=== PATIENT | female | born 1990 | race Caucasian/White ===

== ENCOUNTER 2018-06-29 15:37 | Emergency (ER) | payer BC, MEDICAID, OTHER ==
[~2018-06-29] VITALS: Ht 148.6 cm; Wt 49.4 kg
[~2018-06-29 15:37] MED LIST: AC325T PO; AMOX500C2 PO; CEFD300C3 PO; CEFP250T2 PO; CEPH500C PO; CIPR500T78 PO; CLOT21CR6 VG; CPR500T PO; CYCL10TA9 PO; DESM0.2T PO; DOXY-13 PO; FAMO20TA5 PO; HYDR-1231 PO; HYDR-34 PO; HYDR-3720 PO; HYDR1TAB PO; HYOS0.1216 PO; LORTAB PO; METR500T PO; NAPR-243 PO; NITR-65 PO; NITR100C44 PO; OMEP20CA12 PO; ONDA-42 SL; ONDA4TAB11 PO; ONDA4TAB8 PO; ONDA8TAB13 PO; ONDAN4ODT PO; OXYC-12 PO; OXYC-465 PO; PANT20TA2 PO; PHEN100T26 PO; PHEN200T27 PO; PRD20T PO; PROM25SU10 PR; SULF1TAB35 PO; TRAM50TA2 PO; TRM50T PO
--- OUTSIDE RECORDS SUMMARY | 2018-06-29 15:46 | XMS REPORT | Continuity Of Care Document ---
Author Author [facility] Address [address] [place] [address] Phone Care Team Providers Care Wig Maker Name Role Phone UNASSIGNED, ED PHYSICIAN Unavailable Unavailable MARIANN GALLEGOS DO AT Results Lab Results Visit/Account #[id number] (June 01, 2016 9:17pm - June 01, 2016 11:13pm) Test Result Date/Time 22643-1: COMPLETE BLOOD COUNT WITH DIFF WHITE BLOOD COUNT(4.0-11.0 10E3/UL) 10.4 10E3/UL June 01, 2016 8:21pm RED BLOOD COUNT(4.00-5.20 10E6/UL) 4.73 10E6/UL June 01, 2016 8:21pm HEMOGLOBIN(12.0-16.0 G/DL) 13.9 G/DL June 01, 2016 8:21pm HEMATOCRIT(36.0-46.0 %) 43.0 % June 01, 2016 8:21pm 61621-0: MEAN CORPUSCULAR VOLUME(82.0-100.0 FL) 90.9 FL June 01, 2016 8:21pm 06851-9: MEAN CORPUSCULAR HEMOGLOBIN(26.0-34.0 PG) 29.4 PG June 01, 2016 8:21pm MEAN CORPUSCULAR HGB CONC(31.5-36.5 G/DL) 32.3 G/DL June 01, 2016 8:21pm RED CELL DISTRIBUTION WIDTH(11.5-14.5 %) 12.2 % June 01, 2016 8:21pm 777-3: PLATELET COUNT(150-450 10E3/UL) 334 10E3/UL June 01, 2016 8:21pm MEAN PLATELET VOLUME(8.2-12.4 FL) 9.9 FL June 01, 2016 8:21pm 770-8: NEUTROPHILS % (AUTO)(40-70 %) 64 % June 01, 2016 8:21pm LYMPHOCYTES % (AUTO)(15-45 %) 22 % June 01, 2016 8:21pm 5905-5: MONOCYTES % (AUTO)(2-10 %) 12 % June 01, 2016 8:21pm 713-8: EOSINOPHILS % (AUTO)(0-6 %) 1 % June 01, 2016 8:21pm 706-2: BASOPHILS % (AUTO)(0-1 %) 1 % June 01, 2016 8:21pm 61594-7: IMMATURE GRANS % (AUTO)(0-0 %) 0 % June 01, 2016 8:21pm NUCLEATED RBCS (AUTO)(0-0 %) 0 % June 01, 2016 8:21pm 751-8: NEUTROPHILS # (AUTO)(2.5-7.5 10E3/UL) 6.7 10E3/UL June 01, 2016 8:21pm 82351-9: LYMPHOCYTES # (AUTO)(1.0-4.0 10E3/UL) 2.3 10E3/UL June 01, 2016 8:21pm 742-7: MONOCYTES # (AUTO)(0.2-0.8 10E3/UL) 1.3 10E3/UL June 01, 2016 8:21pm 711-2: EOSINOPHILS # (AUTO)(0.0-0.4 10E3/UL) 0.1 10E3/UL June 01, 2016 8:21pm 704-7: BASOPHILS # (AUTO)(0.0-0.2 10E3/UL) 0.1 10E3/UL June 01, 2016 8:21pm IMMATURE GRANS # (AUTO)(0.0-0.0 10E3/UL) 0.0 10E3/UL June 01, 2016 8:21pm DIFF TYPE AUTOMATED June 01, 2016 8:21pm UA WITH SCREEN FOR CULTURE 5778-6: COLOR,URINE YELLOW June 01, 2016 8:19pm 09627-9: CLARITY,URINE SLIGHTLY CLOUDY June 01, 2016 8:19pm GLUCOSE, URINE(NEGATIVE MG/DL) NEGATIVE MG/DL June 01, 2016 8:19pm URINE BILIRUBIN(NEGATIVE) NEGATIVE June 01, 2016 8:19pm KETONES,URINE(NEGATIVE MG/DL) NEGATIVE MG/DL June 01, 2016 8:19pm 2965-2: URINE SPECIFIC GRAVITY(1.001-1.035) 1.016 June 01, 2016 8:19pm 83809-2: URINE BLOOD(NEGATIVE) MODERATE June 01, 2016 8:19pm 2756-5: URINE PH(5.0-9.0) 8.0 June 01, 2016 8:19pm URINE PROTEIN(Less than 20 MG/DL) TRACE MG/DL June 01, 2016 8:19pm 93602-4: URINE UROBILINOGEN(0.2-1.0 MG/DL) 0.2-1.0 MG/DL June 01, 2016 8:19pm URINE NITRITE(NEGATIVE) POSITIVE June 01, 2016 8:19pm 5799-2: LEUKOCYTE ESTERASE ,URINE(NEGATIVE) LARGE June 01, 2016 8:19pm URINE RBCS(0-3 /HPF) 0-3 /HPF June 01, 2016 8:19pm URINE WBCS(0-3 /HPF) Greater than 100 /HPF June 01, 2016 8:19pm URINE EPITHELIAL CELLS(0-3 /HPF) 4-7 /HPF June 01, 2016 8:19pm URINE HYALINE CASTS(0-3 /LPF) 4-7 /LPF June 01, 2016 8:19pm URINE BACTERIA(NEGATIVE /HPF) 4+ /HPF June 01, 2016 8:19pm 630-4: URINE CULTURE TO FOLLOW June 01, 2016 8:19pm URINE MICROSCOPIC REQUIRED YES June 01, 2016 8:19pm URINE CRYSTALS(NONE SEEN /HPF) 1+ AMORPHOUS /HPF June 01, 2016 8:19pm URINE OTHER CASTS(NONE SEEN /LPF) NONE SEEN /LPF June 01, 2016 8:19pm URINE COMMENTS NONE June 01, 2016 8:19pm 10064-8: COMPLETE METABOLIC PROFILE GLUCOSE(70-110 MG/DL) 90 MG/DL June 01, 2016 8:21pm BLOOD UREA NITROGEN(6-20 MG/DL) 12 MG/DL June 01, 2016 8:21pm CREATININE(0.50-1.20 MG/DL) 0.90 MG/DL June 01, 2016 8:21pm 58547-1: EST GLOMERULAR FILTRATION RATE(Greater than or equal to 60) Greater than or equal to 60 Result Comments: If the patient is of -Guy[place] descent/extraction multiply the eGFR value by 1.212 to obtain the actual eGFR. >=60 mg/dL Normal 30-59 mg/dL Moderate Kidney Disease 15-29 mg/dL Severe Kidney Disease <15 mg/dL Kidney Failure June 01, 2016 8:21pm BUN CREATININE RATIO(10.0-20.0 RATIO) 13.0 RATIO June 01, 2016 8:21pm SODIUM(135-145 MMOL/L) 133 MMOL/L June 01, 2016 8:21pm POTASSIUM(3.6-5.0 MMOL/L) 3.9 MMOL/L June 01, 2016 8:21pm CHLORIDE(101-111 MMOL/L) 103 MMOL/L June 01, 2016 8:21pm CO2(21-31 MMOL/L) 26 MMOL/L June 01, 2016 8:21pm ANION GAP(8-18) 8 June 01, 2016 8:21pm OSMO CALCULATED(270.0-290.0) 265.7 June 01, 2016 8:21pm CALCIUM(8.5-10.5 MG/DL) 8.8 MG/DL June 01, 2016 8:21pm BILIRUBIN,TOTAL(0.1-1.2 MG/DL) 1.0 MG/DL June 01, 2016 8:21pm ALKALINE PHOSPHATASE(42-121 IU/L) 61 IU/L June 01, 2016 8:21pm ASPARTATE AMINO TRANSFERASE(10-42 IU/L) 23 IU/L June 01, 2016 8:21pm ALANINE AMINOTRANSFERASE(10-60 IU/L) 13 IU/L June 01, 2016 8:21pm TOTAL PROTEIN(6.4-8.2 G/DL) 8.0 G/DL June 01, 2016 8:21pm ALBUMIN(3.5-5.5 G/DL) 4.3 G/DL June 01, 2016 8:21pm GLOBULIN(2.4-3.6) 3.7 June 01, 2016 8:21pm ALBUMIN/GLOBULIN RATIO(0.9-1.8 RATIO) 1.2 RATIO June 01, 2016 8:21pm 3040-3: LIPASE 3040-3: LIPASE(22-51 U/L) 23 U/L June 01, 2016 8:21pm SERUM HCG, QUALITATIVE 2110-5: SERUM HCG, QUALITATIVE(NEGATIVE) NEGATIVE June 01, 2016 8:21pm Allergies and Adverse Reactions Allergies and Adverse Reactions Patient Unit Number: [id number] Agent Type Reaction Severity Status TRAMADOL Drug Allergy Unknown Unknown Active Problem List Problem List Visit/Account #[id number] (June 01, 2016 9:17pm - June 01, 2016 11:13pm) Acute Problems: Code/Condition Comments Documented Start Date Documented Resolved Date Code (s) Urinary tract infection ICD10: N39.0 Urinary tract infection ICD9: 599.0 Urinary tract infection SNOMED: 88074932 Urinary tract infection Plan of Care Plan Of Care Visit/Account #[id number] (June 01, 2016 9:17pm - June 01, 2016 11:13pm) Patient Instructions Home to rest. Drink plenty of water. Take all at antibiotics as prescribed. Vital Signs Vital Signs Visit/Account #[id number] (June 01, 2016 9:17pm - June 01, 2016 11:13pm) Sign First Result Last Result Code(s) Temperature in Fahrenheit Temperature (Fahrenheit): 98.2 [degF] On June 01, 2016 9:11pm Temperature (Fahrenheit): 98.4 [degF] On June 01, 2016 11:00pm 8310-5 Body Temperature Weight in Kilograms Weight (Kilograms): 55.7 kg On June 01, 2016 9:11pm 3141-9 Weight Measured 04611-9 Body weight measured in kilograms Functional Status Functional and Cognitive Status No Functional Status Data Medications Inpatient/Ordered Medications - Medications administered during hospital visit Visit/Account #[id number] (June 01, 2016 9:17pm - June 01, 2016 11:13pm) Medication Route Sig/Schedule Precondition/Indication Comments/Instructions Codes IV Medication Carriers: NORMAL SALINE(SODIUM CHLORIDE) 1000 ML INJECTION Dose: 1000 ML INTRAVEN .Q1H (Rate: 1000 MLS/HR Duration: 1 HR) Carriers: 1000 ML Sodium Chloride 9 MG/ML Injection (RxNorm): 4766986 NORMAL SALINE (SODIUM CHLORIDE) NDC: 68144871772 SUBLIMAZE INJ(FentaNYL CITRATE) 100 MCG/2 ML INJECTION Dose: 1 ML INTRAVEN NOW Label Comments: GIVE BY SLOW PUSH OVER 2-5 MIN MAY INCREASE FALL RISK SUBLIMAZE INJ (FentaNYL CITRATE) NDC: 53985448704 IV Medication Carriers: ANCEF 1 GM/50 ML(CEFAZOLIN/DEXTROSE) 1 GM/50 ML INJECTION Dose: 50 ML INTRAVEN NOW (Rate: 100 MLS/HR Duration: 30 MIN) Label Comments: REFRIGERATE ANCEF=KEFZOL Expires 24 HRS after dispensed Carriers: Cefazolin 1000 MG Injection (RxNorm): 6813458 ANCEF 1 GM/50 ML (CEFAZOLIN/DEXTROSE) NDC: 23161420732 TORADOL INJ(KETOROLAC TROMETHAMINE) 15 MG/ML INJECTION Dose: 0.6667 ML INTRAVEN ONE TIME ORDER Label Comments: DO NOT EXCEED 5 DAYS OF THERAPY 1 ML Ketorolac Tromethamine 15 MG/ML Injection (RxNorm): 984388 TORADOL INJ (KETOROLAC TROMETHAMINE) NDC: 40416510340 PYRIDIUM(PHENAZOPYRIDINE HCL) 200 MG TAB Dose: 200 MG ORAL NOW Phenazopyridine hydrochloride 200 MG Oral Tablet (RxNorm): 2530886 PYRIDIUM (PHENAZOPYRIDINE HCL) NDC: 09945412112 NORCO 5-325(HYDROcodone BIT/ACETAMINOPHEN) 1 TAB TAB Dose: 1 TAB ORAL NOW Label Comments: <<may be substituted for 5/500>> REC MAX DAILY DOSE ACETAMINOPHEN: 4000 MG/24 HR MAY INCREASE FALL RISK Acetaminophen 325 MG / Hydrocodone Bitartrate 5 MG Oral Tablet (RxNorm): 920844 NORCO 5-325 (HYDROcodone BIT/ACETAMINOPHEN) NDC: 94268699229 Discharge Medications - Medications that patient should continue to take. Review with physician Visit/Account #[id number] (June 01, 2016 9:17pm - June 01, 2016 11:13pm) Medication Route Sig/Schedule Precondition/Indication Comments/Instructions Codes KEFLEX(CEPHALEXIN MONOHYDRATE) 500 MG CAPSULE Dose: 500 MG ORAL EVERY 6 HOURS Cephalexin 500 MG Oral Capsule (RxNorm): 481872 KEFLEX (CEPHALEXIN MONOHYDRATE) NDC: 79421902560 NORCO 5-325 TABLET(HYDROcodone BIT/ACETAMINOPHEN) 1 EACH TABLET Dose: 1 TAB ORAL EVERY 6 HOURS PAIN Acetaminophen 325 MG / Hydrocodone Bitartrate 5 MG Oral Tablet (RxNorm): 072106 NORCO 5-325 TABLET (HYDROcodone BIT/ACETAMINOPHEN) NDC: 20076919795 PYRIDIUM(PHENAZOPYRIDINE HCL) 200 MG TABLET Dose: 200 MG ORAL 3 TIMES A DAY Phenazopyridine hydrochloride 200 MG Oral Tablet (RxNorm): 3020903 PYRIDIUM (PHENAZOPYRIDINE HCL) NDC: 90934270099 History Of Encounters Encounters Visit/Account #[id number] (June 01, 2016 9:17pm - June 01, 2016 11:13pm) Account Status Physican Of Record Reason For Visit Visit Diagnosis Start Date/Time Stop Date/Time PAMELA GALLEGOS, ABD PAIN Not Available Jun 01, 2016 9:17pm Jun 01, 2016 11:13pm History of Procedures Procedure List No procedures recorded. Discharge Instructions Discharge Instructions Visit/Account #[id number] (June 01, 2016 9:17pm - June 01, 2016 11:13pm) DISCHARGE INSTRUCTIONS Physician Documentation Social History Social History No Social History Data. Immunizations Immunizations Patient Unit Number: [id number] Immunizations No immunizations recorded.
--- OUTSIDE RECORDS SUMMARY | 2018-06-29 15:49 | XMS REPORT | Continuity of Care Document ---
Author Organization Unknown Address Unknown Allergies Active Description Code Type Severity Reaction Onset Reported/Identified Relationship to Patient Clinical Status Yes No Known Drug Allergies [id number] Drug Allergy Unknown N/A 01/05/2014 Yes TRAMADOL [id number] Drug Allergy N/A N/A 06/01/2016 Medications There is no data. Problems Date Dx Coded Attending Type Code Diagnosis Diagnosed By 09/25/2009 Ot 644.03 10/11/2009 Ot 643.23 10/11/2009 Ot 644.03 11/29/2009 Ot 644.13 12/04/2009 Ot 285.9 12/04/2009 Ot 648.21 12/04/2009 Ot V27.0 01/30/2010 Ot 620.2 01/30/2010 Ot 789.09 03/22/2010 Ot 462 04/21/2012 Ot 599.0 04/21/2012 Ot 616.0 04/21/2012 Ot 788.1 04/30/2012 Ot 041.49 04/30/2012 Ot 041.89 04/30/2012 Ot 079.98 04/30/2012 Ot 564.00 04/30/2012 Ot 590.10 04/30/2012 Ot 614.9 04/30/2012 Ot 616.10 04/30/2012 Ot V04.81 07/04/2012 Ot 552.1 09/19/2012 MARILIA VALE MD Ot 599.0 09/19/2012 MARILIA VALE MD Ot 789.00 03/29/2013 KEVIN MCCRAY Ot 599.70 03/29/2013 KEVIN MCCRAY Ot 723.4 03/29/2013 KEVIN MCCRAY Ot 780.79 03/29/2013 KEVIN MCCRAY Ot 789.00 05/03/2013 KEVIN MCCRAY Ot 574.20 05/03/2013 KEVIN MCCRAY Ot 787.01 05/04/2013 KRISTINE ARREDONDO KEVIN L Ot 574.20 05/04/2013 KRISTINE ARREDONDO KEVIN L Ot 789.01 05/12/2013 ERI MCMANUS, ANGELA Mayo Ot 338.18 05/12/2013 ERI , ANGELA Mayo Ot 599.0 05/12/2013 ERI , ANGELA Mayo Ot 787.02 05/12/2013 ERI , ANGELA Mayo Ot 789.05 05/15/2013 STEPHANIE METCALF MD Ot 564.00 05/15/2013 STEPHANIE METCALF MD Ot 789.01 10/17/2013 KEVIN MCCRAY Ot 276.51 10/17/2013 KEVIN MCCRAY Ot 620.2 10/17/2013 KEVIN MCCRAY Ot 787.01 10/17/2013 KEVIN MCCRAY Ot 789.09 01/07/2014 ANDERS GARRISON, ESTEPHANIA Taylor Ot 568.0 01/07/2014 ANDERS GARRISON, ESTEPHANIA Taylor Ot 617.9 01/07/2014 ESTEPHNAIA MCNAMARA MD Ot 620.2 01/07/2014 ANDERS GARRISON, ESTEPHANIA Taylor Ot 789.03 01/11/2014 LALA GARRISON, DIONICIO Bonilla Ot 599.0 01/11/2014 DIONICIO REEVES MD Ot 788.1 01/14/2014 ANDERS GARRISON, ESTEPHANIA Taylor Ot 079.99 01/14/2014 ANDERS GARRISON, ESTEPHANIA Taylor Ot 590.80 01/14/2014 ESTEPHANIA MCNAMARA MD Ot 646.63 01/14/2014 ANDERS GARRISON, ESTEPHANIA Taylor Ot 647.63 01/17/2014 ERI , ANGELA Mayo Ot 599.0 01/17/2014 ERI , ANGELA Mayo Ot 787.01 01/17/2014 ERI , ANGELA K Ot 787.03 05/23/2014 Ot 599.0 05/23/2014 Ot 787.01 06/19/2014 Ot 553.1 06/19/2014 Ot V72.63 06/19/2014 Ot V74.8 06/19/2014 TEA GARRISON, STEPHANIE Ot 575.11 06/19/2014 TEA GARRISON, STEPHANIE Ot 574.20 06/19/2014 TEA GARRISON, STEPHANIE Ot V72.84 06/19/2014 ANDERS GARRISON, ESTEPHANIA Taylor Ot 625.9 06/19/2014 ANDERS GARRISON, ESTEPHANIA Taylor Ot V72.63 06/19/2014 ANDERS GARRISON, ESTEPHANIA Taylor Ot V74.8 06/19/2014 KEVIN MCCRAY Ot 648.93 06/19/2014 KRISTINE ARREDONDO, KEVIN Desai Ot 787.02 06/19/2014 KEVIN MCCRAY Ot 787.91 06/19/2014 KEVIN MCCRAY Ot 789.00 06/24/2014 Ot 553.1 06/24/2014 Ot V72.63 06/24/2014 Ot V74.8 06/24/2014 TEA GARRISON, STEPHANIE Ot 575.11 06/24/2014 ETA GARRISON, STEPHANIE Ot 574.20 06/24/2014 TEA GARRISON, STEPHANIE Ot V72.84 06/24/2014 ANDERS GARRISON, ESTEPHANIA Taylor Ot 625.9 06/24/2014 ANDERS GARRISON, ESTEPHANIA Taylor Ot V72.63 06/24/2014 ANDERS GARRISON, ESTEPHANIA Taylor Ot V74.8 06/27/2014 COREY PENDLETON BOAT PILOT Ot 640.03 06/27/2014 COREY PENDLETON BOAT PILOT Ot 644.03 06/28/2014 COREY PENDLETON BOAT PILOT Ot 623.8 06/28/2014 COREY PENDLETON BOAT PILOT Ot 634.90 07/15/2014 ANDERS GARRISON, ESTEPHANIA Taylor Ot 615.9 07/15/2014 ANDERS GARRISON, ESTEPHANIA Taylor Ot 620.1 07/15/2014 ESTEPHANIA MCNAMARA MD Ot V74.8 08/28/2014 KEVIN MCCRAY Ot 599.0 09/04/2014 ESTEPHANIA MCNAMARA MD Ot 634.11 10/15/2014 Ot 553.1 10/15/2014 Ot V72.63 10/15/2014 Ot V74.8 10/15/2014 TEA GARRISON, STEPHANIE Ot 575.11 10/15/2014 TEA GARRISON, STEPHANIE Ot 574.20 10/15/2014 TEA GARRISON, STEPHANIE Ot V72.84 10/15/2014 ANDERS GARRISON, ESTEPHANIA Taylor Ot 625.9 10/15/2014 ANDERS GARRISON, ESTEPHANIA G Ot V72.63 10/15/2014 ANDERS GARRISON, ESTEPHANIA Taylor Ot V74.8 10/15/2014 ANDERS GARRISON, ESTEPHANIA G Ot 634.11 10/15/2014 DEBBIE RASHEED DO Ot 599.0 10/15/2014 DEBBIE RASHEED DO Ot 789.09 10/15/2014 Ot 553.1 10/15/2014 Ot V72.63 10/15/2014 Ot V74.8 10/15/2014 TEA GARRISON, STEPHANIE Ot 575.11 10/15/2014 TEA GARRISON, STEPHANIE Ot 574.20 10/15/2014 TEA GARRISON, STEPHANIE Ot V72.84 10/15/2014 ANDERS GARRISON, ESTEPHANIA G Ot 625.9 10/15/2014 ANDERS GARRISON, ESTEPHANIA G Ot V72.63 10/15/2014 ANDERS GARRISON, ETSEPHANIA G Ot V74.8 10/15/2014 ANDERS GARRISON, ESTEPHANIA Taylor Ot 634.11 10/17/2014 Ot 553.1 10/17/2014 Ot V72.63 10/17/2014 Ot V74.8 10/17/2014 ETA GARRISON, STEPHANIE Ot 575.11 10/17/2014 TEA GARRISON, STEPHANIE Ot 574.20 10/17/2014 TEA GARRISON, STEPHANIE Ot V72.84 10/17/2014 ANDERS GARRISON, ESTEPHANIA Taylor Ot 625.9 10/17/2014 ANDERS GARRISON, ESTEPHANIA Taylor Ot V72.63 10/17/2014 ANDERS GARRISON, ESTEPHANIA Taylor Ot V74.8 10/17/2014 ANDERS GARRISON, ESTEPHANIA G Ot 634.11 10/18/2014 KEVIN MCCRAY Ot 595.9 10/18/2014 KEVIN MCCRAY Ot 599.70 11/04/2014 LUISITO OMALLEY MD Ot 789.04 09/17/2015 Ot 599.0 URIN TRACT INFECTION NOS 09/17/2015 Ot 616.0 CERVICITIS 09/17/2015 Ot 788.1 DYSURIA 06/01/2016 MARIANN GALLEGOS DO N39.0 URINARY TRACT INFECTION, SITE NOT SPECIFIED 06/01/2016 MARIANN GALLEGOS DO R10.11 RIGHT UPPER QUADRANT PAIN Procedures There is no data. Results There is no data. Encounters ACCT No. Visit Date/Time Discharge Status Pt. Type Provider Facility Loc./Unit Complaint [id number] 11/03/2014 23:13:00 11/04/2014 01:53:00 DIS Emergency LUISITO OMALLEY MD Via [facility] ER [id number] 10/17/2014 21:44:00 10/18/2014 01:00:00 DIS Emergency KEVIN MCCRAY [facility] ER [id number] 10/15/2014 21:31:00 10/15/2014 22:29:00 DIS Emergency DEBBIE RASHEED DO [facility] ER [id number] 08/28/2014 22:17:00 08/28/2014 23:34:00 DIS Emergency KEVIN MCCRAY [facility] ER [id number] 07/15/2014 11:37:00 07/15/2014 17:30:00 DIS Outpatient ESTEPHANIA MCNAMARA MD [facility] [id number] 07/01/2014 15:28:00 07/01/2014 23:59:59 CLS Outpatient ESTEPHANIA MCNAMARA MD [facility] [id number] 06/28/2014 22:13:00 06/28/2014 23:39:00 DIS Emergency COREY PENDLETON APRN [facility] ER [id number] 06/27/2014 20:18:00 06/27/2014 22:51:00 DIS Emergency COREY PENDLETON APRN [facility] ER [id number] 06/19/2014 19:20:00 06/19/2014 22:11:00 DIS Emergency KEVIN MCCRAY [facility] ER [id number] 01/17/2014 03:24:00 01/17/2014 06:08:00 DIS Emergency ANGELA HWANG DO [facility] ER [id number] 01/14/2014 10:35:00 01/14/2014 15:53:00 DIS Inpatient ESTEPHANIA MCNAMARA MD [facility] [id number] 01/11/2014 19:04:00 01/11/2014 21:10:00 DIS Emergency DIONICIO REEVES MD [facility] ER [id number] 01/07/2014 09:30:00 01/07/2014 16:30:00 DIS Outpatient ESTEPHANIA MCNAMARA MD [facility] [id number] 01/05/2014 09:47:00 01/05/2014 23:59:59 CLS Outpatient ESTEPHANIA MCNAMARA MD [facility] PREOP [id number] 10/17/2013 13:10:00 10/17/2013 16:05:00 DIS Emergency KEVIN MCCRAY [facility] ER [id number] 05/14/2013 00:00:00 05/15/2013 14:30:00 DIS Inpatient STEPHANIE METCALF MD [facility] SURGICAL [id number] 05/12/2013 10:13:00 05/12/2013 13:06:00 DIS Emergency ANGELA HWANG DO [facility] ER [id number] 05/08/2013 11:17:00 05/08/2013 23:59:59 CLS Outpatient STEPHANIE METCALF MD [facility] [id number] 05/07/2013 14:58:00 05/07/2013 23:59:59 CLS Outpatient STEPHANIE METCALF MD [facility] PREOP [id number] 05/04/2013 18:35:00 05/04/2013 22:06:00 DIS Emergency KEVIN MCCRAY [facility] ER [id number] 05/03/2013 10:25:00 05/03/2013 13:50:00 DIS Emergency KEVIN MCCRAY [facility] ER [id number] 03/29/2013 15:06:00 03/29/2013 22:55:00 DIS Emergency KEVIN MCCRAY [facility] ER [id number] 09/19/2012 11:40:00 09/19/2012 13:29:00 DIS Emergency AKANKSHA GARRISON, MARILIA Mayo [facility] ER [id number] 06/29/2018 15:38:00 ACT Emergency LALA GARRISON, DIONICIO Bonilla [facility] ER FS POSS ALLERGIC REACTION TO MEDS [id number] 05/23/2014 06:12:00 Document Registration [id number] 07/04/2012 07:47:00 Document Registration [id number] 07/01/2012 10:25:00 Document Registration [id number] 04/21/2012 22:38:00 Document Registration [id number] 04/21/2012 12:25:00 Document Registration [id number] 03/22/2010 02:54:00 Document Registration [id number] 01/30/2010 01:43:00 Document Registration [id number] 12/02/2009 01:17:00 Document Registration [id number] 11/29/2009 00:35:00 Document Registration [id number] 10/10/2009 19:30:00 Document Registration [id number] 09/25/2009 06:00:00 Document Registration [id number] 06/01/2016 21:17:00 06/01/2016 23:13:00 DIS ER MARIANN GALLEGOS DO [facility] ED
[2018-06-29] MEDS ORDERED: CEPH-507 PO (16:05)
--- NOTE | 2018-06-29 16:05 | ED General ---
General Chief Complaint: Allergic Reaction Stated Complaint: POSS ALLERGIC REACTION TO MEDS Source of Information: Patient Exam Limitations: No Limitations History of Present Illness Date Seen by Provider: Jun 29, 2018 Time Seen by Provider: 16:00 Initial Comments Patient complains of throat swelling and pain possibly due to an allergic reaction. She took amoxicillin for 10 days for left upper tooth infection. She was still having problems so she started taking clindamycin. She's been on clindamycin for 3 days. She feels a clindamycin stuck in her throat throat is swelling. The [facility] doctor ordered Benadryl for symptoms and referred her here. She denies rash or shortness of air. Allergies and Home Medications Allergies Coded Allergies: No Known Drug Allergies (Unverified , 01/05/14) Home Medications Cefprozil 250 Mg Tablet, 1 TAB PO BID Prescribed by: DEBBIE RASHEED on 10/15/142206 Cephalexin 500 Mg Capsule, 500 MG PO TID Prescribed by: DIONICIO REEVES on 06/29/18 1605 Cyclobenzaprine HCl 10 Mg Tablet, 10 MG PO Q8H PRN for SPASMS Prescribed by: LUISITO OMALLEY on 11/04/14 0145 Hydrocodone Bit/Acetaminophen 1 Each Tablet, 1 EACH PO Q6H Prescribed by: LUISITO OMALLEY on 11/04/14 0145 Hyoscyamine Sulfate 0.125 Mg Tab, 1 EACH PO QID PRN for PAIN Prescribed by: KEVIN CARMONA on 10/18/14 0052 Patient Home Medication List Home Medication List Reviewed: Yes Review of Systems Review of Systems Constitutional: no symptoms reported EENTM: dental problems, throat pain, throat swelling Respiratory: no symptoms reported Gastrointestinal: nausea Musculoskeletal: no symptoms reported Skin: no symptoms reported Psychiatric/Neurological: No Symptoms Reported All Other Systems Reviewed Negative Unless Noted: Yes Past Sovfugz-Nweive-Mhbqnv Hx Patient Social History Alcohol Use: Denies Use Recreational Drug Use: No Smoking Status: Never a Smoker Contact w/Someone Who Travel: No (N) Recent Hopitalizations: No Physical Abuse: No Sexual Abuse: No Mistreated: No Fear: No Immunizations Up To Date Tetanus Booster (TDap): More than 5yrs PED Vaccines UTD: No Date of Influenza Vaccine: Dec 17, 2012 Seasonal Allergies Seasonal Allergies: No Past Medical History Surgeries: Yes (Umbilical herniorrhaphy 07/04/12,D&C, ENDOMETRIOSIS SCRAPING, d& c) Adenoidectomy, Appendectomy, Gallbladder, Tonsillectomy Respiratory: No Cardiac: No Neurological: No Reproductive Disorders: Yes (CPP) Female Reproductive Disorders: Endometriosis, Ovarian Cyst Sexually Transmitted Disease: No HIV/AIDS: No Kidney Infection, UTI-Chronic Gastrointestinal: No Abdominal Hernia, Gall Bladder Disease Musculoskeletal: No Chronic Back Pain Endocrine: No Cancer: No Psychosocial: Yes Depression Integumentary: No Blood Disorders: No Adverse Reaction/Blood Tranf: No Family Medical History No Pertinent Family Hx Physical Exam Vital Signs Vital Signs - First Documented 06/29/18 15:51 Temp 98.9 Pulse 89 Resp 20 B/P (MAP) 107/75 (86) Pulse Ox 100 O2 Delivery Room Air Capillary Refill : Height, Weight, BMI Height: 4'11" Weight: 105lbs. 0.0oz. [id number]; BMI Method:Stated General Appearance: No Apparent Distress, WD/WN Eyes: Bilateral Eye PERRL, Bilateral Eye EOMI HEENT: PERRL/EOMI, Pharynx Normal, Moist Mucous Membranes, Other (carious left upper second molar with inflamed gingiva) Neck: Supple Respiratory: Lungs Clear, Normal Breath Sounds Cardiovascular: Regular Rate, Rhythm, No Edema Neurologic/Psychiatric: Alert, No Motor/Sensory Deficits Skin: Normal Color, Warm/Dry Progress/Results/Core Measures Suspected Sepsis SIRS Temperature: Pulse: Respiratory Rate: Blood Pressure / Mean: Results/Orders My Orders Orders - DIONICIO REEVES MD Antacid Suspension (Mylanta Suspension (06/29/18 16:15) Lidocaine 2% Viscous 15 Ml (Xylocaine Vi (06/29/18 16:15) Medications Given in ED Current Medications Medications Dose Ordered Sig/Damion Route Start Time Stop Time Status Last Admin Dose Admin Al Hydrox/Mg Hydrox/Simethicone 30 ml ONCE ONCE PO 06/29/18 16:15 06/29/18 16:16 DC 06/29/18 16:13 30 ML Lidocaine HCl 15 ml ONCE ONCE PO 06/29/18 16:15 06/29/18 16:16 DC 06/29/18 16:13 15 ML Vital Signs/I&O 06/29/18 06/29/18 15:51 16:19 Temp 98.9 98.9 Pulse 89 98 Resp 20 20 B/P (MAP) 107/75 (86) 106/71 (83) Pulse Ox 100 100 O2 Delivery Room Air Room Air Capillary Refill : Departure Impression Primary Impression: Allergic reaction Additional Impression: Dental caries Disposition: 21 DIS/X[address]/[employer] Condition: Stable Departure-Patient Inst. Decision time for Depature: 16:03 Referrals: ANGELA MENDOZA MD (PCP/Family) Primary Care Physician Patient Instructions: Drug Allergy Add. Discharge Instructions: Stop taking clindamycin. Start taking Keflex. Benadryl as needed for throat swelling. Clear liquid diet for next 24 hours. See dentist as soon as possible. All discharge instructions reviewed with patient and/or family. Voiced understanding. Scripts Cephalexin (Keflex) 500 Mg Capsule 500 MG PO TID for 7 Days, #21 CAP Prov: DIONICIO REEVES MD 06/29/18 DIONICIO REEVES MD Jun 29, 2018 16:05
[2018-06-29] MEDS ORDERED: ANTACID SUSP 30 ML UDC (MYLANTA) PO ONE (16:15)
[2018-06-29] MEDS ORDERED: LIDOCAINE 2% VISCOUS 15 ML UDC PO ONE (16:15)
[2018-06-29 16:19] VITALS: BP 106/71
== END 2018-06-29 16:19 ==
LOC: EDUNIT# 15:37 → ER FS 15:38
DX: K04.7 Periapical abscess without sinus (principal); T78.40XA Allergy, unspecified, initial encounter; F32.9 Major depressive disorder, single episode, unspecified; Z98.890 Other specified postprocedural states; Z90.89 Acquired absence of other organs; Z90.49 Acquired absence of other specified parts of digestive tract; Z87.448 Personal history of other diseases of urinary system; Z87.440 Personal history of urinary (tract) infections; Z87.19 Personal history of other diseases of the digestive system
CPT/HCPCS: 99283

== ENCOUNTER 2018-10-21 21:29 | Emergency (ER) | payer OTHER ==
[~2018-10-21] VITALS: Ht 147.3 cm; Wt 56.7 kg
[~2018-10-21 21:29] MED LIST changes: +CEPH-507 PO
--- NOTE | 2018-10-21 22:38 | ED Respiratory ---
General Stated Complaint: LT EAR PAIN, ABD AND CHEST PAIN FROM COUGH Source: patient, family, RN notes reviewed History of Present Illness Date Seen by Provider: Oct 21, 2018 Time Seen by Provider: 22:30 Timing/Duration: week Allergies and Home Medications Allergies Coded Allergies: No Known Drug Allergies (Unverified , 01/05/14) Home Medications Cefprozil 250 Mg Tablet, 1 TAB PO BID Prescribed by: DEBBIE RASHEED on 10/15/14 2207 Cephalexin 500 Mg Capsule, 500 MG PO TID Prescribed by: DIONICIO REEVES on 06/29/18 1605 Cyclobenzaprine HCl 10 Mg Tablet, 10 MG PO Q8H PRN for SPASMS Prescribed by: LUISITO OMALLEY on 11/04/14 0145 Hydrocodone Bit/Acetaminophen 1 Each Tablet, 1 EACH PO Q6H Prescribed by: LUISITO OMALLEY on 11/04/14 0145 Hyoscyamine Sulfate 0.125 Mg Tab, 1 EACH PO QID PRN for PAIN Prescribed by: KEVIN CARMONA on 10/18/14 0052 Past Gpomvbk-Ocqfbh-Vyusir Hx Patient Social History Recent Foreign Travel: No Contact w/Someone Who Travel: No Recent Hopitalizations: No Immunizations Up To Date Tetanus Booster (TDap): More than 5yrs PED Vaccines UTD: No Date of Influenza Vaccine: Dec 17, 2012 Seasonal Allergies Seasonal Allergies: No Past Medical History Surgeries: Yes (Umbilical herniorrhaphy 07/04/12,D&C, ENDOMETRIOSIS SCRAPING, d&c) Adenoidectomy, Appendectomy, Gallbladder, Tonsillectomy Respiratory: No Cardiac: No Neurological: No Reproductive Disorders: Yes (CPP) Female Reproductive Disorders: Endometriosis, Ovarian Cyst Sexually Transmitted Disease: No HIV/AIDS: No Kidney Infection, UTI-Chronic Gastrointestinal: No Abdominal Hernia, Gall Bladder Disease Musculoskeletal: No Chronic Back Pain Endocrine: No Cancer: No Psychosocial: Yes Depression Integumentary: No Blood Disorders: No Adverse Reaction/Blood Tranf: No Family Medical History No Pertinent Family Hx Physical Exam Vital Signs - First Documented Capillary Refill : Height: 4'10.50" Weight: 109lbs. 0oz. [id number]; BMI Method:Stated Progress/Results/Core Measures Suspected Sepsis SIRS Temperature: Pulse: Respiratory Rate: Laboratory Tests 10/21/18 22:55: White Blood Count 9.1 Blood Pressure / Mean: Laboratory Tests 10/21/18 22:55: Creatinine 0.76, Platelet Count 315, Total Bilirubin 0.2 Results/Orders Lab Results Laboratory Tests Test 10/21/18 22:55 Range/Units White Blood Count 9.1 4.3-11.0 10^3/uL Red Blood Count 4.15 L 4.35-5.85 10^6/uL Hemoglobin 12.2 11.5-16.0 G/DL Hematocrit 37 35-52 % Mean Corpuscular Volume 90 80-99 FL Mean Corpuscular Hemoglobin 29 25-34 PG Mean Corpuscular Hemoglobin Concent 33 32-36 G/DL Red Cell Distribution Width 12.3 10.0-14.5 % Platelet Count 315 130-400 10^3/uL Mean Platelet Volume 10.6 H 7.4-10.4 FL Neutrophils (%) (Auto) 59 42-75 % Lymphocytes (%) (Auto) 29 12-44 % Monocytes (%) (Auto) 9 0-12 % Eosinophils (%) (Auto) 2 0-10 % Basophils (%) (Auto) 1 0-10 % Neutrophils # (Auto) 5.4 1.8-7.8 X 10^3 Lymphocytes # (Auto) 2.6 1.0-4.0 X 10^3 Monocytes # (Auto) 0.8 0.0-1.0 X 10^3 Eosinophils # (Auto) 0.2 0.0-0.3 10^3/uL Basophils # (Auto) 0.1 0.0-0.1 10^3/uL Sodium Level 142 135-145 MMOL/L Potassium Level 3.7 3.6-5.0 MMOL/L Chloride Level 105 98-107 MMOL/L Carbon Dioxide Level 21 21-32 MMOL/L Anion Gap 16 H 5-14 MMOL/L Blood Urea Nitrogen 6 L 7-18 MG/DL Creatinine 0.76 0.60-1.30 MG/DL Estimat Glomerular Filtration Rate > 60 BUN/Creatinine Ratio 8 Glucose Level 93 70-105 MG/DL Calcium Level 8.7 8.5-10.1 MG/DL Corrected Calcium 8.6 8.5-10.1 MG/DL Total Bilirubin 0.2 0.1-1.0 MG/DL Aspartate Amino Transf (AST/SGOT) 12 5-34 U/L Alanine Aminotransferase (ALT/SGPT) 8 0-55 U/L Alkaline Phosphatase 66 40-136 U/L Total Protein 7.1 6.4-8.2 GM/DL Albumin 4.1 3.2-4.5 GM/DL My Orders Orders - DEBBIE RASHEED DO Cbc With Automated Diff (10/21/18 22:36) Comprehensive Metabolic Panel (10/21/18 22:36) Chest Pa/Lat (2 View) (10/21/18 22:36) Azithromycin Tablet (Zithromax Tablet) (10/21/18 23:45) Prednisone Tablet (Deltasone Tablet) (10/21/18 23:45) Hydrocodone/Apap 7.5/325 Tab (Lortab 7. (10/21/18 23:45) Vital Signs/I&O 10/21/18 10/21/18 22:40 22:40 Temp 98.7 Pulse 76 Resp 20 B/P (MAP) 128/82 (97) Pulse Ox 100 O2 Delivery Room Air Room Air Capillary Refill : Departure Impression Primary Impression: Acute bronchitis Additional Impressions: Costochondritis, acute Otitis media Disposition: 01 HOME, SELF-CARE Condition: Stable Departure-Patient Inst. Referrals: ANGELA MENDOZA MD (PCP/Family) Primary Care Physician Patient Instructions: Acute Bronchitis, Adult (DC), Costochondritis (DC), Ear Infections (Otitis Media) Add. Discharge Instructions: RECOMMEND 400 mg OF IBUPROFEN EVERY 6 HOURS FOR PAIN. MAY ALSO TAKE 1000 mg OF TYLENOL EVERY 6 HOURS WELL IF NEEDED. DO NOT EXCEED 4000 mg OF TYLENOL IN A 24 HOUR PERIOD. Scripts Methylprednisolone (Medrol) 4 Mg Tab.ds.pk 4 MG PO UD for 6 Days, #21 PKG PER DOSE PACK INSTRUCTIONS Prov: DEBBIE RASHEED DO 10/21/18 Azithromycin (Azithromycin) 250 Mg Tablet 250 MG PO DAILY, #4 TAB 0 Refills Prov: DEBBIE RASHEED DO 10/21/18 DEBBIE RASHEED DO Oct 21, 2018 22:38
[2018-10-21 23:05] LABS: HEMATOCRIT 37 % (35-52); HEMOGLOBIN 12.2 G/DL (11.5-16.0); LYMPHOCYTES % (AUTO) 29 % (12-44); MEAN CORPUSCULAR HEMOGLOBIN 29 PG (25-34); MEAN CORPUSCULAR HGB CONC 33 G/DL (32-36); MEAN CORPUSCULAR VOLUME 90 FL (80-99); MEAN PLATELET VOLUME 10.6 FL (7.4-10.4); NEUTROPHILS % (AUTO) 59 % (42-75); PLATELET COUNT 315 10^3/uL (130-400); RED CELL DISTRIBUTION WIDTH 12.3 % (10.0-14.5); WHITE BLOOD COUNT 9.1 10^3/uL (4.3-11.0)
[2018-10-21 23:06] LABS: BASOPHILS # (AUTO) 0.1 10^3/uL (0.0-0.1); BASOPHILS % (AUTO) 1 % (0-10); EOSINOPHILS # (AUTO) 0.2 10^3/uL (0.0-0.3); EOSINOPHILS % (AUTO) 2 % (0-10); LYMPHOCYTES # (AUTO) 2.6 X 10^3 (1.0-4.0); MONOCYTES # (AUTO) 0.8 X 10^3 (0.0-1.0); MONOCYTES % (AUTO) 9 % (0-12); NEUTROPHILS # (AUTO) 5.4 X 10^3 (1.8-7.8)
[2018-10-21 23:22] LABS: CARBON DIOXIDE 21 MMOL/L (21-32); CHLORIDE 105 MMOL/L (98-107); POTASSIUM 3.7 MMOL/L (3.6-5.0); SODIUM 142 MMOL/L (135-145)
[2018-10-21 23:23] LABS: ALANINE AMINOTRANSFERASE 8 U/L (0-55); ALBUMIN 4.1 GM/DL (3.2-4.5); ALKALINE PHOSPHATASE 66 U/L (40-136); BILIRUBIN,TOTAL 0.2 MG/DL (0.1-1.0); BUN/CREATININE RATIO 8; CALCIUM 8.7 MG/DL (8.5-10.1); CREATININE SERUM 0.76 MG/DL (0.60-1.30); GFR ESTIMATED > 60; GLUCOSE 93 MG/DL (70-105); TOTAL PROTEIN 7.1 GM/DL (6.4-8.2)
[2018-10-21] MEDS ORDERED: AZIT250T12 PO (23:39)
[2018-10-21] MEDS ORDERED: METH4TAB PO (23:39)
[2018-10-21] MEDS ORDERED: predniSONE 20 MG TAB PO ONE (23:45)
[2018-10-21] MEDS ORDERED: HYDROcodone/APAP 7.5 MG/325 MG (LORTAB, LORCET PLUS) TABLET PO ONE (23:45)
[2018-10-21] MEDS ORDERED: AZITHROMYCIN 250 MG TAB (ZITHROMAX) PO ONE (23:45)
[2018-10-21 23:56] VITALS: BP 111/72
--- NOTE | 2018-10-22 06:30 | Diagnostic Imaging Report ---
INDICATION: Cough and congestion x2 weeks. TECHNIQUE: Two view chest 10:23 PM CORRELATION STUDY: 05/12/2013 FINDINGS: The heart size, mediastinal configuration and pulmonary vasculature are within normal limits. The lungs are clear with no consolidating infiltrate. There is no significant pleural effusion or pneumothorax. Visualized osseous structures are unremarkable. IMPRESSION: 1. No radiographic evidence for acute abnormality of the chest. Dictated by: Dictated on workstation # [id number]
== END 2018-10-21 23:56 | disposition home or self-care (01) ==
LOC: EDUNIT# 21:29 → ER FS 21:30
DX: J20.9 Acute bronchitis, unspecified (principal); H66.92 Otitis media, unspecified, left ear; M94.0 Chondrocostal junction syndrome [Tietze]; F32.9 Major depressive disorder, single episode, unspecified; Z87.19 Personal history of other diseases of the digestive system; Z90.49 Acquired absence of other specified parts of digestive tract; Z90.89 Acquired absence of other organs; Z87.440 Personal history of urinary (tract) infections
CPT/HCPCS: 36415; 71046; 80053; 85025

== ENCOUNTER 2019-01-01 20:39 | Emergency (ER) | payer MEDICAID ==
[~2019-01-01] VITALS: Ht 147 cm; Wt 59.1 kg
[~2019-01-01 20:39] MED LIST changes: +AZIT250T12 PO; +METH4TAB PO
--- NOTE | 2019-01-01 21:41 | ED Integumentary General ---
General Chief Complaint: General Problems/Pain Stated Complaint: INFECTED BELLY BUTTON - POST OP Nursing Triage Note: Pt ambulates to triage with C/O umbilical drainage from surgery, pt had umbilical hernia surgery on 11/25/18. Pt states green/yellow drainage from site since surgery, wound has been open to air and bactriband applied daily. Source: patient Exam Limitations: no limitations History of Present Illness Date Seen by Provider: Jan 01, 2019 Time Seen by Provider: 21:38 Initial Comments Patient had an umbilical hernia repaired here by Dr. Metcalf on 11/25/18. She's had persistent yellowish drainage from the inferior aspect of this wound since then, no fevers or chills, she's had increasing pain in the periumbilical region for the past few days, tenderness with flexing abdomen Timing/Duration: constant Severity: moderate Location: torso Possible Cause: no cause identified Associated Symptoms: denies symptoms Allergies and Home Medications Allergies Coded Allergies: clindamycin (Verified Allergy, Intermediate, oral blisters, SOB, 01/01/19) Patient Home Medication List Home Medication List Reviewed: Yes Review of Systems Review of Systems Constitutional: see HPI EENTM: see HPI Respiratory: no symptoms reported Cardiovascular: no symptoms reported Genitourinary: no symptoms reported Musculoskeletal: no symptoms reported Skin: see HPI Psychiatric/Neurological: No Symptoms Reported Past Lwgwizr-Elyxpo-Mxwheq Hx Patient Social History Alcohol Use: Denies Use Recreational Drug Use: No Smoking Status: Current Everyday Smoker Type Used: Cigarettes 2nd Hand Smoke Exposure: Yes Recent Foreign Travel: No Contact w/Someone Who Travel: No Recent Infectious Disease Expo: No Recent Hopitalizations: No Physical Abuse: No Sexual Abuse: No Mistreated: No Fear: No Immunizations Up To Date Tetanus Booster (TDap): More than 5yrs PED Vaccines UTD: Yes Date of Influenza Vaccine: Dec 17, 2012 Seasonal Allergies Seasonal Allergies: No Past Medical History Surgeries: Yes (Umbilical herniorrhaphy 07/04/12,D&C, ENDOMETRIOSIS SCRAPING, d&c,) Adenoidectomy, Appendectomy, Gallbladder, Tonsillectomy Respiratory: No Cardiac: No Neurological: No Reproductive Disorders: Yes (CPP) Female Reproductive Disorders: Endometriosis, Ovarian Cyst Sexually Transmitted Disease: No HIV/AIDS: No Genitourinary: Yes Kidney Infection, UTI-Chronic Gastrointestinal: No (umbilical hernia removed 11/25/18) Abdominal Hernia, Gall Bladder Disease Musculoskeletal: No Chronic Back Pain Endocrine: No HEENT: No Cancer: No Psychosocial: Yes Depression Integumentary: No Blood Disorders: No Adverse Reaction/Blood Tranf: No Family Medical History No Pertinent Family Hx Physical Exam Vital Signs Vital Signs - First Documented 01/01/19 21:01 Temp 37.1 Pulse 72 Resp 19 B/P (MAP) 116/83 (94) Pulse Ox 100 O2 Delivery Room Air Capillary Refill : Less Than 3 Seconds General Appearance: WD/WN, no apparent distress HEENT: PERRL/EOMI, normal ENT inspection Respiratory: normal breath sounds, no respiratory distress, no accessory muscle use Neurologic/Psychiatric: alert, normal mood/affect, oriented x 3 Skin: normal color, warm/dry Skin Problem Character: other (inferior aspect of abdomen about 1/2 inch of incision is dehisced) Progress/Results/Core Measures Results/Orders My Orders Orders - COREY PENDLETON PHYSICAL SCIENCE AIDE Ct Abdomen/Pelvis Wo (01/01/19 21:36) Urine Bedside (01/01/19 21:36) Wound Culture (01/01/19 21:36) Vital Signs/I&O 01/01/19 01/01/19 21:01 22:39 Temp 37.1 37.1 Pulse 72 72 Resp 19 19 B/P (MAP) 116/83 (94) 122/85 (94) Pulse Ox 100 100 O2 Delivery Room Air Room Air Blood Pressure Mean: 94 Departure Communication (Admissions) CT report from stat read shows uncomplicated appearance of the ventral umbilical hernia mesh repair and noncontrast CT no fluid collection or recurrent hernia is identified. #2 right lower lobe patchy opacity suspicious for pneumonic infiltrate in the appropriate clinical context. Impression Primary Impression: Postoperative wound dehiscence Qualified Codes: T81.31XA - Disruption of external operation (surgical) wound, not elsewhere classified, initial encounter Disposition: HOME, SELF-CARE Condition: Stable Departure-Patient Inst. Decision time for Depature: 22:34 Referrals: NO,LOCAL PHYSICIAN (PCP/Family) Primary Care Physician Patient Instructions: Wound Dehiscence Add. Discharge Instructions: 1. Call Dr. Metcalf's office tomorrow to make an appointment to be seen for follow- up 2. Continue with the dressing changes 3. Culture results should be back in about 48 hours. This will tell what kind of bacteria if any ongoing Bactrim in the right antibiotic for it Copy Copies To 1: STEPHANIE METCALF MD, PETER J APRN Jan 01, 2019 21:41
[2019-01-01 22:39] VITALS: BP 122/85
[2019-01-01] MEDS ORDERED: RX-HYDROCODONE/APAP 5/325 MG #4 TAB PK PO PRN (22:45)
--- NOTE | 2019-01-02 07:37 | Diagnostic Imaging Report ---
EXAM: CT Abdomen and Pelvis Without Intravenous Contrast. CLINICAL HISTORY: Umbilical hernia surgery on 11/25/2018. Greenish-yellow drainage at surgical site. EXAM DATE/TIME: 01/01/2019 at 10 pm. COMPARISON: 10/17/2014 FINDINGS: Artifacts: None Lower thorax: There are several patchy alveolar infiltrates in the right lower lung consistent with pneumonitis. ABDOMEN: Liver: Normal Gallbladder and bile ducts: Gallbladder appears to be absent. Bile ducts are not dilated. Pancreas: Normal Spleen: Normal Adrenals: Nonenlarged Kidneys and ureters: No hydronephrosis or calculi. Renal outlines are smooth PELVIS: Bladder: Not distended Reproductive: The uterus and ovaries are not enlarged Appendix: Appears to be absent Bowel: Normal bowel gas pattern throughout. ABDOMEN & PELVIS: Stomach and bowel: Not distended. No bowel wall thickening Peritoneum: No free air or free fluid. There is noted repair of umbilical hernia with mesh present. No complications are demonstrated. Lymph nodes: No lymphadenopathy. Vasculature: Normal Bones: Normal IMPRESSION: 1. Uncomplicated umbilical hernia ventral repair with mesh. 2. Patchy infiltrate right lower lung consistent with pneumonitis. These findings are concordant with the preliminary report. Dictated by: Dictated on workstation # [id number]
== END 2019-01-01 22:45 | disposition home or self-care (01) ==
LOC: EDUNIT# 20:39 → ER 20:41
DX: T81.31XA Disruption of external operation (surgical) wound, not elsewhere classified, initial encounter (principal); F32.9 Major depressive disorder, single episode, unspecified; F17.210 Nicotine dependence, cigarettes, uncomplicated; Z87.440 Personal history of urinary (tract) infections; Z88.1 Allergy status to other antibiotic agents; Z90.49 Acquired absence of other specified parts of digestive tract; Z90.89 Acquired absence of other organs
CPT/HCPCS: 74176; 84703; 87070; 87077; 87186; 87205

== ENCOUNTER 2019-01-11 10:25 | Emergency (ER) | payer MEDICAID ==
[~2019-01-11] VITALS: Ht 147.3 cm; Wt 57.7 kg
[2019-01-11] MEDS ORDERED: CEPH500C (10:42)
--- NOTE | 2019-01-11 10:46 | NUR ---
DR METCALF AND COREY IN ROOM TO SEE PT.
--- NOTE | 2019-01-11 10:46 | ED Integumentary General ---
General Chief Complaint: Skin/Wound Problems Stated Complaint: POST OP - WOUND INFECTION - BELLY BUTTON Source: patient Exam Limitations: no limitations (EVARISTO PEARSON) History of Present Illness Date Seen by Provider: Jan 11, 2019 Time Seen by Provider: 10:30 Initial Comments Patient presents to the ED today with what she believes is a worsening wound from a hernia repair that she had in November. She came to the ED last week for the same issue and was prescribed Bactrim for the infection. She has not yet finished her course of antibiotics but states that the pain is worse than it was last week and that there is a visible opening at the wound site, which was not there last week. She also complains of a pain in both hips and stated "she's afraid the infection has spread to her hips." Location Injury Occurred: home Timing/Duration: week, getting worse Severity: mild Location: torso Possible Cause: other (wound from recent surgery) Modifying Factors: improves with other (Bactrim and topical abx ointment) Associated Symptoms: rash, other (new wound opening at site) (EVARISTO PEARSON) Allergies and Home Medications Allergies Coded Allergies: clindamycin (Verified Allergy, Intermediate, oral blisters, SOB, 01/01/19) Patient Home Medication List Home Medication List Reviewed: Yes (COREY PENDLETON APRN) Review of Systems Review of Systems Constitutional: no symptoms reported EENTM: no symptoms reported Respiratory: no symptoms reported Cardiovascular: no symptoms reported Gastrointestinal: no symptoms reported Genitourinary: no symptoms reported : No Musculoskeletal: no symptoms reported Skin: see HPI Psychiatric/Neurological: No Symptoms Reported Endocrine: No Symptoms Reported Hematologic/Lymphatic: No Symptoms Reported (EVARISTO PEARSON) Past Bwworgh-Pslfdr-Pderti Hx Patient Social History Alcohol Use: Rarely Uses Recreational Drug Use: No Smoking Status: Current Everyday Smoker Type Used: Cigarettes 2nd Hand Smoke Exposure: Yes Recent Foreign Travel: No Contact w/Someone Who Travel: No Recent Hopitalizations: No (EVARISTO PEARSON) Immunizations Up To Date Tetanus Booster (TDap): More than 5yrs PED Vaccines UTD: Yes Date of Influenza Vaccine: Dec 17, 2012 (EVARISTO PEARSON) Seasonal Allergies Seasonal Allergies: No (EVARISTO PEARSON) Past Medical History Surgeries: Yes (Umbilical herniorrhaphy 07/04/12,D&C, ENDOMETRIOSIS SCRAPING, d&c,) Adenoidectomy, Appendectomy, Gallbladder, Tonsillectomy Respiratory: No Cardiac: No Neurological: No Reproductive Disorders: Yes (CPP) Female Reproductive Disorders: Endometriosis, Ovarian Cyst Sexually Transmitted Disease: No HIV/AIDS: No Genitourinary: Yes Kidney Infection, UTI-Chronic Gastrointestinal: No (umbilical hernia removed 11/25/18) Abdominal Hernia, Gall Bladder Disease Musculoskeletal: No Chronic Back Pain Endocrine: No HEENT: No Cancer: No Psychosocial: Yes Depression Integumentary: No Blood Disorders: No Adverse Reaction/Blood Tranf: No (EVARISTO PEARSON STUDENT) Family Medical History No Pertinent Family Hx (EVARISTO PEARSON STUDENT) Physical Exam Vital Signs Vital Signs - First Documented 01/11/19 10:29 Temp 36.5 Pulse 90 Resp 20 B/P (MAP) 125/96 (106) Pulse Ox 99 O2 Delivery Room Air (COREY PENDLETON APRN) Vital Signs Capillary Refill : (EVARISTO PEARSON STUDENT) General Appearance: no apparent distress HEENT: PERRL/EOMI, pharynx normal Cardiovascular: normal peripheral pulses, regular rate, rhythm, no edema, no gallop, no JVD, no murmur Respiratory: chest non-tender, lungs clear, normal breath sounds, no respiratory distress, no accessory muscle use Gastrointestinal: normal bowel sounds, non tender, soft, no organomegaly, no pulsatile mass Back: normal inspection, no CVA tenderness, no vertebral tenderness Neurologic/Psychiatric: alert, normal mood/affect, oriented x 3 Skin: normal color, warm/dry, other (small wound opening to the right of the umbilicus) Skin Problem Location: other (umbilicus) Skin Problem Character: drainage Lymphatic: no adenopathy (EVARISTO PEARSON STUDENT) Progress/Results/Core Measures Results/Orders Vital Signs/I&O 01/11/19 10:29 Temp 36.5 Pulse 90 Resp 20 B/P (MAP) 125/96 (106) Pulse Ox 99 O2 Delivery Room Air (COREY PENDLETON APRN) Departure Communication (Admissions) Dr. Metcalf happened to be in house, was gracious enough to swing by patient. Agrees this is a suture granuloma, plan for local anesthesia with suture removal in his office. I have seen the patient as well and agree with findings. There is no surrounding cellulitis or drainage able to be expressed from this wound which is only (by a few millimeters at the umbilicus. There are some inflammatory changes just adjacent to this wound only about 1 or 2 mm. (COREY PENDLETON APRN) Impression Primary Impression: Suture granuloma Qualified Codes: T81.89XA - Other complications of procedures, not elsewhere classified, initial encounter Disposition: HOME, SELF-CARE Condition: Stable Departure-Patient Inst. Decision time for Depature: 10:52 (COREY PENDLETON APRN) Referrals: STEPHANIE METCALF MD NO,LOCAL PHYSICIAN (PCP) Primary Care Physician Patient Instructions: Wound Care (DC) Add. Discharge Instructions: 1. See Dr. Metcalf in his office this Sunday at 2 PM All discharge instructions reviewed with patient and/or family. Voiced understanding. EVARISTO PEARSON PA STUDENT Jan 11, 2019 10:46 COREY PENDLETON APRN Jan 11, 2019 10:54
[2019-01-11 10:56] VITALS: BP 125/96
== END 2019-01-11 10:55 | disposition home or self-care (01) ==
LOC: EDUNIT# 10:25 → ER 10:26
DX: T81.89XA Other complications of procedures, not elsewhere classified, initial encounter (principal); F32.9 Major depressive disorder, single episode, unspecified; F17.210 Nicotine dependence, cigarettes, uncomplicated; Z88.1 Allergy status to other antibiotic agents; Z90.89 Acquired absence of other organs; Z90.49 Acquired absence of other specified parts of digestive tract; Z87.440 Personal history of urinary (tract) infections
CPT/HCPCS: 99282

== ENCOUNTER 2019-01-24 09:07 | Emergency (ER) | payer MEDICAID ==
[~2019-01-24] VITALS: Ht 147 cm; Wt 59.0 kg
[~2019-01-24 09:07] MED LIST changes: +CEPH500C
--- NOTE | 2019-01-24 09:36 | ED Integumentary General ---
General Chief Complaint: Skin/Wound Problems Stated Complaint: WOUND INFECTION Source: patient, family Exam Limitations: no limitations History of Present Illness Date Seen by Provider: Jan 24, 2019 Time Seen by Provider: 09:15 Initial Comments 28-year-old female who presents with a tre-umbilical rash. Patient reports that she has been having it since November when she had umbilical mesh placed. Patient reports that she has been on antibiotics in November both oral and topical with no improvement. She was seen at her surgeon's office 2 days ago. Reports that she had to come home headache and she continues to have pain and some nausea. She nausea medication at home but has not taken it. Reports that they called the surgeon's office and sent to the ER. However I called the surgeon's office they report that they were more that it was them. That there is nothing for us to do in the ER and to discharge the patient. They will either see the patient at 11 AM today if she wants sooner practitioner or if she wants to see the surgeon the patient to wait until next Sunday. At this time there is no acute emergency and no workup or further screening is needed Allergies and Home Medications Allergies Coded Allergies: clindamycin (Verified Allergy, Intermediate, oral blisters, SOB, 01/01/19) Patient Home Medication List Home Medication List Reviewed: Yes Review of Systems Review of Systems Constitutional: No chills, No fever; malaise Respiratory: No cough, No short of breath Cardiovascular: No chest pain Gastrointestinal: see HPI, nausea Genitourinary: no symptoms reported Skin: see HPI Past Uxhnxqg-Pohjwa-Kjdyni Hx Past Med/Social Hx: Reviewed Nursing Past Med/Soc Hx Patient Social History Alcohol Use: Denies Use Recreational Drug Use: No Type Used: Cigarettes 2nd Hand Smoke Exposure: Yes Recent Hopitalizations: No Physical Abuse: No Sexual Abuse: No Mistreated: No Fear: No Immunizations Up To Date Tetanus Booster (TDap): More than 5yrs PED Vaccines UTD: Yes Date of Influenza Vaccine: Dec 17, 2012 Seasonal Allergies Seasonal Allergies: No Past Medical History Surgeries: Yes (Umbilical herniorrhaphy 07/04/12,D&C, ENDOMETRIOSIS SCRAPING, d&c,) Adenoidectomy, Appendectomy, Gallbladder, Tonsillectomy Respiratory: No Cardiac: No Neurological: No Reproductive Disorders: Yes (CPP) Female Reproductive Disorders: Endometriosis, Ovarian Cyst Sexually Transmitted Disease: No HIV/AIDS: No Genitourinary: Yes Kidney Infection, UTI-Chronic Gastrointestinal: No (umbilical hernia removed 11/25/18) Abdominal Hernia, Gall Bladder Disease Musculoskeletal: No Chronic Back Pain Endocrine: No HEENT: No Cancer: No Psychosocial: Yes Anxiety, Depression Integumentary: No Blood Disorders: No Adverse Reaction/Blood Tranf: No Family Medical History No Pertinent Family Hx Physical Exam Vital Signs Capillary Refill : General Appearance: WD/WN, no apparent distress Neck: supple Cardiovascular: normal peripheral pulses, regular rate, rhythm Respiratory: chest non-tender, lungs clear, normal breath sounds Gastrointestinal: soft, tenderness (mild periumbilical at mesh site ) Extremities: normal range of motion, non-tender Neurologic/Psychiatric: no motor/sensory deficits, oriented x 3 Skin: other (mild small pustules/folliculitis type rash in the periumbilical area over mesh site) Progress/Results/Core Measures Progress Progress Note : Time: 09:35 Progress Note Patient to be discharged with recommendation to follow up with nurse practitioner today and 11 over follow-up with the surgeon next Sunday whenever there is choice. No further workup warranted. Departure Impression Primary Impression: Cellulitis Qualified Codes: L03.316 - Cellulitis of umbilicus Additional Impression: Other postoperative infection Disposition: 01 HOME, SELF-CARE Condition: Stable Departure-Patient Inst. Referrals: NO,LOCAL PHYSICIAN (PCP/Family) Primary Care Physician Patient Instructions: Wound Care (DC), Surgical Wound (DC) SADIE DAWSON DO Jan 24, 2019 09:36 POS
[2019-01-24 09:41] VITALS: BP 123/75
== END 2019-01-24 09:41 | disposition home or self-care (01) ==
LOC: EDUNIT# 09:07 → ER 09:07
DX: L03.316 Cellulitis of umbilicus (principal); T81.40XA Infection following a procedure, unspecified, initial encounter; F41.9 Anxiety disorder, unspecified; F32.9 Major depressive disorder, single episode, unspecified; Z88.1 Allergy status to other antibiotic agents; Z77.22 Contact with and (suspected) exposure to environmental tobacco smoke (acute) (chronic); Z90.89 Acquired absence of other organs; Z90.49 Acquired absence of other specified parts of digestive tract; Z87.440 Personal history of urinary (tract) infections
CPT/HCPCS: 99282

== ENCOUNTER 2019-01-29 12:50 | Emergency (ER) | payer MEDICAID ==
[~2019-01-29] VITALS: Ht 147.3 cm; Wt 58.1 kg
[2019-01-29] MEDS ORDERED: morphine INJ 10 MG/ML 1ML (SYR OR VIAL) IVP STA (13:28)
[2019-01-29] MEDS ORDERED: NS IV 1000 ML 1,000 ML IV STA (13:28)
[2019-01-29] MEDS ORDERED: ONDANSETRON 4 MG/2 ML (SDV) Z0FRAN IVP ONE (13:30)
--- NOTE | 2019-01-29 13:54 | ED Abdominal Pain ---
General Chief Complaint: Abdominal/GI Problems Stated Complaint: VOMITING; ABD PAIN POST SURGERY Nursing Triage Note: Patient presents to the ED with c/o of abdominal pain, nausea, vomiting, urinary retention, and constipation. States she hasn't voided or had a bowel movement since Sunday after surgery. She reports that she had infected mesh removed from her abdomen. She also states that she has been vomiting since the surgery as well and felt something in her incision pop when she vomited. Sepsis Screen: No Definite Risk History of Present Illness Date Seen by Provider: Jan 29, 2019 Time Seen by Provider: 13:00 Initial Comments The patient is a 28-year-old female who is status post explantation of infected ventral/umbilical hernia mesh by Dr. Massey completed 2 days ago at [place], [place]. she presents with concern for sharp, focal periumbilical abdominal discomfort as well as copious watery, nonbloody vomiting in the setting of no bowel movements since surgery. Patient states she has also not urinated since surgery 2 days ago. No associated fevers, hematemesis, hematochezia, melena, cough, shortness of breath or chest pain, flank pain, back pain. Patient has been taking hydrocodone for relief of surgical incision site discomfort. Allergies and Home Medications Allergies Coded Allergies: clindamycin (Verified Allergy, Intermediate, oral blisters, SOB, 01/01/19) Patient Home Medication List Home Medication List Reviewed: Yes Review of Systems Review of Systems Constitutional: see HPI All Other Systems Reviewed Negative Unless Noted: Yes Past Qsphqho-Cuejxu-Hlxaxg Hx Past Med/Social Hx: Reviewed Nursing Past Med/Soc Hx Patient Social History Alcohol Use: Denies Use Recreational Drug Use: No Smoking Status: Current Everyday Smoker Type Used: Cigarettes 2nd Hand Smoke Exposure: Yes Recent Foreign Travel: No Contact w/Someone Who Travel: No Recent Infectious Disease Expo: No Recent Hopitalizations: No Physical Abuse: No Sexual Abuse: No Mistreated: No Fear: No Immunizations Up To Date Tetanus Booster (TDap): More than 5yrs PED Vaccines UTD: Yes Date of Influenza Vaccine: Dec 17, 2012 Seasonal Allergies Seasonal Allergies: No Past Medical History Surgeries: Yes (Umbilical herniorrhaphy 07/04/12,D&C, ENDOMETRIOSIS SCRAPING, d&c, Mesh Tommy) Adenoidectomy, Appendectomy, Gallbladder, Tonsillectomy Respiratory: No Cardiac: No Neurological: No Reproductive Disorders: Yes (CPP) Female Reproductive Disorders: Endometriosis, Ovarian Cyst Sexually Transmitted Disease: No HIV/AIDS: No Genitourinary: Yes Kidney Infection, UTI-Chronic Gastrointestinal: No (umbilical hernia removed 11/25/18) Abdominal Hernia, Gall Bladder Disease Musculoskeletal: No Chronic Back Pain Endocrine: No HEENT: No Cancer: No Psychosocial: Yes Anxiety, Depression Integumentary: No Blood Disorders: No Adverse Reaction/Blood Tranf: No Family Medical History Reviewed Nursing Family Hx No Pertinent Family Hx Physical Exam Vital Signs Vital Signs - First Documented 01/29/19 13:05 Temp 36.5 Pulse 109 Resp 18 B/P (MAP) 115/90 (98) Pulse Ox 100 O2 Delivery Room Air Capillary Refill : Less Than 3 Seconds Height/Weight/BMI Height: 4'10.00" Weight: 125lbs. 0oz. [id number]; 26.00 BMI Method:Stated General Appearance: no apparent distress Exam Comments This is a younger female appearing nontoxic and in no acute distress. Head is normocephalic and atraumatic. Neck is supple and nontender. Oropharynx is mildly tacky. Lungs are clear to auscultation in all stations. There is a normal S1 and S2 without rubs or gallops and capillary refill is appropriate, less than 2 seconds globally. Abdomen is soft and nondistended with moderate tenderness over her umbilical surgical incision site which appears without erythema, warmth, swelling or dehiscence. Skin is warm and dry without cyanosis, clubbing or edema. Psychiatrically, the patient demonstrates appropriate mood an d affect and is alert. Progress/Results/Core Measures Results/Orders Lab Results Laboratory Tests Test 01/29/19 13:50 01/29/19 14:45 Range/Units White Blood Count 15.3 H 4.3-11.0 10^3/uL Red Blood Count 4.62 4.35-5.85 10^6/uL Hemoglobin 13.5 11.5-16.0 G/DL Hematocrit 41 35-52 % Mean Corpuscular Volume 89 80-99 FL Mean Corpuscular Hemoglobin 29 25-34 PG Mean Corpuscular Hemoglobin Concent 33 32-36 G/DL Red Cell Distribution Width 13.0 10.0-14.5 % Platelet Count 283 130-400 10^3/uL Mean Platelet Volume 11.3 H 7.4-10.4 FL Neutrophils (%) (Auto) 87 H 42-75 % Lymphocytes (%) (Auto) 7 L 12-44 % Monocytes (%) (Auto) 5 0-12 % Eosinophils (%) (Auto) 1 0-10 % Basophils (%) (Auto) 0 0-10 % Neutrophils # (Auto) 13.3 H 1.8-7.8 X 10^3 Lymphocytes # (Auto) 1.0 1.0-4.0 X 10^3 Monocytes # (Auto) 0.8 0.0-1.0 X 10^3 Eosinophils # (Auto) 0.2 0.0-0.3 10^3/uL Basophils # (Auto) 0.0 0.0-0.1 10^3/uL Neutrophils % (Manual) 80 % Lymphocytes % (Manual) 6 % Monocytes % (Manual) 5 % Eosinophils % (Manual) 2 % Band Neutrophils 7 % Blood Morphology Comment NORMAL Sodium Level 137 135-145 MMOL/L Potassium Level 3.6 3.6-5.0 MMOL/L Chloride Level 98 98-107 MMOL/L Carbon Dioxide Level 23 21-32 MMOL/L Anion Gap 16 H 5-14 MMOL/L Blood Urea Nitrogen 9 7-18 MG/DL Creatinine 0.70 0.60-1.30 MG/DL Estimat Glomerular Filtration Rate > 60 BUN/Creatinine Ratio 13 Glucose Level 102 70-105 MG/DL Calcium Level 9.3 8.5-10.1 MG/DL Corrected Calcium 8.5-10.1 MG/DL Total Bilirubin 0.3 0.1-1.0 MG/DL Aspartate Amino Transf (AST/SGOT) 22 5-34 U/L Alanine Aminotransferase (ALT/SGPT) 12 0-55 U/L Alkaline Phosphatase 54 40-136 U/L Total Protein 7.9 6.4-8.2 GM/DL Albumin 4.7 H 3.2-4.5 GM/DL Lipase 19 8-78 U/L Serum Test, Qualitative NEGATIVE NEGATIVE Urine Color YELLOW Urine Clarity CLEAR Urine pH 7.0 5-9 Urine Specific [place] 1.015 L 1.016-1.022 Urine Protein NEGATIVE NEGATIVE Urine Glucose (UA) NEGATIVE NEGATIVE Urine Ketones TRACE H NEGATIVE Urine Nitrite NEGATIVE NEGATIVE Urine Bilirubin NEGATIVE NEGATIVE Urine Urobilinogen 0.2 < = 1.0 MG/DL Urine Leukocyte Esterase NEGATIVE NEGATIVE Urine RBC (Auto) NEGATIVE NEGATIVE Urine RBC NONE /HPF Urine WBC NONE /HPF Urine Squamous Epithelial Cells 0-2 /HPF Urine Crystals NONE /LPF Urine Bacteria NONE /HPF Urine Casts NONE /LPF Urine Mucus NEGATIVE /LPF Urine Culture Indicated NO My Orders Orders - MARY ANN ZIEGLER MD Ondansetron Injection (Zofran Injectio (01/29/19 13:30) Ns Iv 1000 Ml (Sodium Chloride 0.9%) (01/29/19 13:28) Ed Iv/Invasive Line Start (01/29/19 13:28) Comprehensive Metabolic Panel (01/29/19:) Lipase (01/29/19:28) Ua Culture If Indicated (01/29/19:) Cbc With Automated Diff (01/29/19:) Ct Abdomen/Pelvis W (01/29/19 13:28) Hcg,Qualitative Serum (01/29/19:28) Morphine Injection (Morphine Injection (01/29/19:28) Manual Differential (01/29/19 13:50) Iohexol Injection (Omnipaque 350 Mg/Ml 1 (01/29/19 15:00) Received Contrast (Hold Metformin- Contr (01/29/19 15:00) Sodium Chloride Flush (Catheter Flush Sy (01/29/19 15:00) Ns (Ivpb) (Sodium Chloride 0.9% Ivpb Bag (01/29/19 15:00) Medications Given in ED Current Medications Medications Dose Ordered Sig/Damion Route Start Time Stop Time Status Last Admin Dose Admin Iohexol 80 ml ONCE ONCE IV 01/29/19 15:00 01/29/19 15:01 DC 01/29/19 15:09 80 ML Ondansetron HCl 4 mg ONCE ONCE IVP 01/29/19 13:30 01/29/19 13:31 DC 01/29/19 13:52 4 MG Sodium Chloride 10 ml NEEDED PRN IV 01/29/19 15:00 01/29/19 15:09 10 ML Sodium Chloride 100 ml ONCE ONCE IV 01/29/19 15:00 01/29/19 15:01 DC 01/29/19 15:09 80 ML Vital Signs/I&O 01/29/19 13:05 Temp 36.5 Pulse 109 Resp 18 B/P (MAP) 115/90 (98) Pulse Ox 100 O2 Delivery Room Air Blood Pressure Mean: 98 POS Progress Progress Note : Time: 13:55 Progress Note Patient is actively vomiting and has not been able to hold anything down and appears somewhat clinically dehydrated. Favor postsurgical ileus versus opiate- related constipation versus obstruction or other surgical complication. We will check labs and give IV fluids and medication for discomfort and nausea and we'll obtain a CT scan of the abdomen and pelvis and we'll then reevaluate. Plan will be to touch base with Dr. Massey concerning findings of workup. Update 1540: Large workup including labs and urinalysis and CT scan of the abdomen and pelvis is generally without evidence of acute process aside from mild leukocytosis which may be reactive or related to the abdominal wall infection which led to the patient's recent surgery. Case is discussed with Dr. Massey who states that from his standpoint there are no findings which would be of concern and that the patient is safe to follow up closely in the office with him in 2 days. Per his recommendations we will prescribe by mouth Levaquin to cover for possible continued abdominal wall infection although this is unlikely to be a significant factor based on negative CT scan, bowel regimen and antinausea medication. We will also prescribe some Percocet. Patient understands that if she feels worse is that of better or develops other new symptoms of concern that she should return immediately to the emergency department for reevaluation. All questions are answered. Departure Impression Primary Impression: Abdominal pain Additional Impression: Vomiting Disposition: 01 HOME, SELF-CARE Condition: Improved Departure-Patient Inst. Referrals: NO,LOCAL PHYSICIAN (PCP/Family) Primary Care Physician Patient Instructions: Nausea and Vomiting After Surgery Add. Discharge Instructions: Follow-up with Dr. Massey in 2 days in the office as discussed. Please call his clinic for an appointment and let them know that he would like you to be seen on Sunday. We are adding medicine to help you move your bowels as well as antinausea medication and an antibiotic per Dr. Massey's recommendations. If you feel worse or better, please return to the emergency department right away for reevaluation. Scripts Levofloxacin (Levofloxacin) 500 Mg Tablet 500 MG PO DAILY for 7 Days, #7 TAB 0 Refills Prov: MARY ANN ZIEGLER MD 01/29/19 Ondansetron (Ondansetron Odt) 4 Mg Tab.rapdis 4 MG PO Q8H, #10 TAB Prov: MARY ANN ZIEGLER MD 01/29/19 Sennosides (Senna) 8.6 Mg Tablet 17.2 MG PO HS for 3 Days, #6 TAB Prov: MARY ANN ZIEGLER MD 01/29/19 Polyethylene Glycol 3350 (Miralax) 17 Gm Powd.pack 17 GM PO BID, #527 GM Prov: MARY ANN ZIEGLER MD 01/29/19 Oxycodone HCl/Acetaminophen (Percocet 5-325 mg Tablet) 1 Each Tablet 1 TAB PO Q6H for PAIN-MODERATE MDD 6 TABS for 7 Days, #11 TAB Prov: MARY ANN ZIEGLER MD 01/29/19 MARY ANN ZIEGLER MD Jan 29, 2019 13:54 POS
[2019-01-29 14:36] LABS: BILIRUBIN,TOTAL 0.3 MG/DL (0.1-1.0); BUN/CREATININE RATIO 13; CALCIUM 9.3 MG/DL (8.5-10.1); CARBON DIOXIDE 23 MMOL/L (21-32); CHLORIDE 98 MMOL/L (98-107); GFR ESTIMATED > 60; GLUCOSE 102 MG/DL (70-105); POTASSIUM 3.6 MMOL/L (3.6-5.0); SODIUM 137 MMOL/L (135-145)
[2019-01-29 14:37] LABS: ALANINE AMINOTRANSFERASE 12 U/L (0-55); ALBUMIN 4.7 GM/DL (3.2-4.5); ALKALINE PHOSPHATASE 54 U/L (40-136); LIPASE 19 U/L (8-78); TOTAL PROTEIN 7.9 GM/DL (6.4-8.2)
[2019-01-29 14:38] LABS: BASOPHILS % (AUTO) 0 % (0-10); EOSINOPHILS % (AUTO) 1 % (0-10); HEMATOCRIT 41 % (35-52); HEMOGLOBIN 13.5 G/DL (11.5-16.0); LYMPHOCYTES % (AUTO) 7 % (12-44); MEAN CORPUSCULAR HEMOGLOBIN 29 PG (25-34); MEAN CORPUSCULAR HGB CONC 33 G/DL (32-36); MEAN CORPUSCULAR VOLUME 89 FL (80-99); MEAN PLATELET VOLUME 11.3 FL (7.4-10.4); MONOCYTES % (AUTO) 5 % (0-12); NEUTROPHILS # (AUTO) 13.3 X 10^3 (1.8-7.8); NEUTROPHILS % (AUTO) 87 % (42-75); PLATELET COUNT 283 10^3/uL (130-400); WHITE BLOOD COUNT 15.3 10^3/uL (4.3-11.0)
[2019-01-29 14:39] LABS: EOSINOPHILS # (AUTO) 0.2 10^3/uL (0.0-0.3); MONOCYTES # (AUTO) 0.8 X 10^3 (0.0-1.0)
[2019-01-29 14:46] LABS: BAND NEUTROPHILS 7 %; EOSINOPHILS % (MANUAL) 2 %; LYMPHOCYTES % (MANUAL) 6 %; MONOCYTES % (MANUAL) 5 %; NEUTROPHILS % (MANUAL) 80 %; RBC MORPH NORMAL
[2019-01-29] MEDS ORDERED: IOHEXOL 350 MG/ML 100 ML (OMNIPAQUE 350) VIAL IV ONE (15:00)
[2019-01-29] MEDS ORDERED: NS 100 ML (IVPB) BAG IV ONE (15:00)
[2019-01-29] MEDS ORDERED: CATHETER FLUSH 10 ML SYR IV PRN (15:00)
[2019-01-29] MEDS ORDERED: HOLD METFORMIN - RECEIVED CONTRAST 20 ML VIAL IV SCH (15:00)
[2019-01-29 15:06] LABS: BILIRUBIN,URINE NEGATIVE (NEGATIVE); CLARITY,URINE CLEAR; COLOR,URINE YELLOW; GLUCOSE, URINE (UA) NEGATIVE (NEGATIVE); KETONES,URINE TRACE (NEGATIVE); LEUKOCYTE ESTERASE ,URINE NEGATIVE (NEGATIVE); NITRITE,URINE NEGATIVE (NEGATIVE); PROTEIN,URINE NEGATIVE (NEGATIVE); SQUAMOUS EPITHELIAL CELL,UR 0-2 /HPF
--- NOTE | 2019-01-29 15:29 | Diagnostic Imaging Report ---
PROCEDURE: CT abdomen and pelvis with contrast. TECHNIQUE: Multiple contiguous axial images were obtained through the abdomen and pelvis after administration of intravenous contrast. Auto Exposure Controls were utilized during the CT exam to meet ALARA standards for radiation dose reduction. INDICATION: Status post mesh removal from hernia repair two days ago, now complaining of abdominal pain and vomiting. COMPARISON: Correlation is made with prior CT from 01/01/2019. FINDINGS: The lung bases are clear. Trace pneumoperitoneum is noted, likely from recent surgery. The liver and spleen are unremarkable apart from small low density in the dome of the right lobe of the liver measuring 12 mm. This is too small to characterize. There is no biliary ductal dilatation. The pancreas is unremarkable. No adrenal mass is seen. Kidneys are unremarkable. Postsurgical changes to the anterior abdominal wall is noted. Small amount of ill-defined fluid and gas in the midline anterior abdomen is seen. No well-formed fluid collection is seen. No intra-abdominal fluid collection is detected. There is a small amount of free fluid in the pelvis. Small amount of free fluid in the right upper pelvis is noted. Bowel loops appear to be nonobstructed. There is moderate stool in the right colon. Bladder and uterus are unremarkable. IMPRESSION: Postsurgical changes, as described with minimal residual pneumoperitoneum. There is some ill-defined fluid and gas within the anterior abdominal wall subcutaneous fat likely from recent surgery. No well-formed fluid collection is seen at this time. No intra-abdominal fluid collection is identified. There is a small amount of free fluid in the pelvis. Dictated by: Dictated on workstation # [id number]
[2019-01-29] MEDS ORDERED: LEVO500T80 PO (15:50)
[2019-01-29] MEDS ORDERED: ONDA4TAB11 PO (15:50)
[2019-01-29] MEDS ORDERED: SENN-141 PO (15:50)
[2019-01-29] MEDS ORDERED: POLY17PO6 PO (15:50)
[2019-01-29] MEDS ORDERED: OXYC1TAB87 PO (15:50)
[2019-01-29 15:59] VITALS: BP 101/74
[2019-01-29] MEDS ORDERED: oxyCODONE/APAP 5/325MG (PERCOCET 5) TABLET PO ONE (16:00)
== END 2019-01-29 15:59 | disposition home or self-care (01) ==
LOC: EDUNIT# 12:50 → ER FS 12:51
DX: G89.18 Other acute postprocedural pain (principal); R10.9 Unspecified abdominal pain; R11.10 Vomiting, unspecified; F41.9 Anxiety disorder, unspecified; F32.9 Major depressive disorder, single episode, unspecified; F17.210 Nicotine dependence, cigarettes, uncomplicated; Z88.1 Allergy status to other antibiotic agents; Z90.49 Acquired absence of other specified parts of digestive tract; Z90.89 Acquired absence of other organs; Z87.440 Personal history of urinary (tract) infections
CPT/HCPCS: 36415; 74177; 80053; 81000; 83690; 84703; 85007; 85027

== ENCOUNTER 2019-02-15 11:47 | Emergency (ER) | payer MEDICAID ==
[~2019-02-15] VITALS: Ht 149.8 cm; Wt 56.3 kg
[~2019-02-15 11:47] MED LIST changes: +LEVO500T80 PO; +OXYC1TAB87 PO; +POLY17PO6 PO; +SENN-141 PO
--- NOTE | 2019-02-15 13:32 | ED GI ---
General Chief Complaint: Abdominal/GI Problems Stated Complaint: ABD PAIN / SWELLING Nursing Triage Note: Pt c/o swelling at incision site of hernia repair that was performed in January. Pt reports having infected mesh taken out in January and was just released last week. Pt reports abdomen was "normal". Pt reports waking this morning and incision was swollen and painful. Pt describes area as feeling "squishy". Pt reports recent BM change to yellow mucous. Pt discontinued stool softners and mirilax approximately one week ago. Pt reports surgery was performed by Dr. Massey. Sepsis Screen: No Definite Risk Source of Information: Patient Exam Limitations: No Limitations History of Present Illness Date Seen by Provider: Feb 15, 2019 Time Seen by Provider: 13:30 Initial Comments To ER with reports of periUmbilical swelling and abnormal bowel movements. Earlier this year she had an umbilical hernia repair with mesh placement, she then developed a suture granuloma with persistent drainage and open wound. She then had a surgical revision of that with mesh removal recently, the mesh was removed. She then had an episode of vomiting last night and awakened this morni ng with periumbilical distention. Timing/Duration: 1-2 Days Severity/Quality: Moderate Location: Periumbilical Radiation: No Radiation Activities at Onset: None Associated Symptoms: Denies Symptoms Allergies and Home Medications Allergies Coded Allergies: clindamycin (Verified Allergy, Intermediate, oral blisters, SOB, 01/01/19) Home Medications Levofloxacin 500 Mg Tablet, 500 MG PO DAILY Prescribed by: MARY ANN ZIEGLER on 01/29/19 1550 Ondansetron 4 Mg Tab.rapdis, 4 MG PO Q8H Prescribed by: MARY ANN ZIEGLER on 01/29/19 155 Oxycodone HCl/Acetaminophen 1 Each Tablet, 1 TAB PO Q6H Prescribed by: MARY ANN ZIEGLER on 01/29/19 155 Polyethylene Glycol 3350 17 Gm Powd.pack, 17 GM PO BID Prescribed by: MARY ANN ZIEGLER on 01/29/19 155 Sennosides 8.6 Mg Tablet, 17.2 MG PO HS Prescribed by: MARY ANN ZIEGLER on 01/29/19 1550 Patient Home Medication List Home Medication List Reviewed: Yes Review of Systems Review of Systems Constitutional: see HPI EENTM: No Symptoms Reported Respiratory: No Symptoms Reported Cardiovascular: No Symptoms Reported Gastrointestinal: See HPI, Abdominal Pain Genitourinary: No Symptoms Reported Musculoskeletal: no symptoms reported Skin: no symptoms reported Psychiatric/Neurological: No Symptoms Reported Endocrine: No Symptoms Reported Hematologic/Lymphatic: No Symptoms Reported Past Sfnbsyf-Zfpqcz-Zlktpi Hx Patient Social History Alcohol Use: Denies Use Recreational Drug Use: No Type Used: Cigarettes 2nd Hand Smoke Exposure: Yes Recent Foreign Travel: No Contact w/Someone Who Travel: No Recent Infectious Disease Expo: No Recent Hopitalizations: No Physical Abuse: No Sexual Abuse: No Immunizations Up To Date Tetanus Booster (TDap): More than 5yrs PED Vaccines UTD: Yes Date of Influenza Vaccine: Dec 17, 2012 Seasonal Allergies Seasonal Allergies: No Past Medical History Surgeries: Yes (Umbilical herniorrhaphy 07/04/12,D&C, ENDOMETRIOSIS SCRAPING, d&c, Mesh Tommy) Abdominal, Adenoidectomy, Appendectomy, Gallbladder, Tonsillectomy Respiratory: No Cardiac: No Neurological: No Last Menstrual Period: Jan 21, 2019 Reproductive Disorders: Yes (CPP) Female Reproductive Disorders: Endometriosis, Ovarian Cyst Sexually Transmitted Disease: No HIV/AIDS: No Genitourinary: Yes Kidney Infection, UTI-Chronic Gastrointestinal: No (umbilical hernia removed 11/25/18) Abdominal Hernia, Gall Bladder Disease Musculoskeletal: No Chronic Back Pain Endocrine: No HEENT: No Cancer: No Psychosocial: Yes Anxiety, Depression Integumentary: No Blood Disorders: No Adverse Reaction/Blood Tranf: No Family Medical History No Pertinent Family Hx Physical Exam Vital Signs Vital Signs - First Documented 02/15/19 12:08 Temp 36.7 Pulse 82 Resp 13 B/P (MAP) 114/75 (88) Pulse Ox 99 O2 Delivery Room Air Capillary Refill : Less Than 3 Seconds Height/Weight/BMI Height: 4'10.00" Weight: 125lbs. 0oz. 56.002736hd; 25.00 BMI Method:Stated General Appearance: WD/WN, no apparent distress HEENT: PERRL/EOMI, normal ENT inspection Neck: non-tender, full range of motion Respiratory: no respiratory distress, no accessory muscle use Cardiovascular: regular rate, rhythm, no murmur Gastrointestinal: normal bowel sounds, soft, tenderness (no open wounds or drainage, there is a bulge at the umbilicus that is about the size of the palm of her hand.) Extremities: normal range of motion, non-tender Neurologic/Psychiatric: alert, normal mood/affect, oriented x 3 Skin: normal color, warm/dry Progress/Results/Core Measures Results/Orders Lab Results Laboratory Tests Test 02/15/19 13:45 Range/Units White Blood Count 9.5 4.3-11.0 10^3/uL Red Blood Count 4.37 4.35-5.85 10^6/uL Hemoglobin 12.5 11.5-16.0 G/DL Hematocrit 38 35-52 % Mean Corpuscular Volume 86 80-99 FL Mean Corpuscular Hemoglobin 29 25-34 PG Mean Corpuscular Hemoglobin Concent 33 32-36 G/DL Red Cell Distribution Width 12.7 10.0-14.5 % Platelet Count 395 130-400 10^3/uL Mean Platelet Volume 10.3 7.4-10.4 FL Neutrophils (%) (Auto) 71 42-75 % Lymphocytes (%) (Auto) 12 12-44 % Monocytes (%) (Auto) 7 0-12 % Eosinophils (%) (Auto) 11 H 0-10 % Basophils (%) (Auto) 0 0-10 % Neutrophils # (Auto) 6.7 1.8-7.8 X 10^3 Lymphocytes # (Auto) 1.1 1.0-4.0 X 10^3 Monocytes # (Auto) 0.7 0.0-1.0 X 10^3 Eosinophils # (Auto) 1.0 H 0.0-0.3 10^3/uL Basophils # (Auto) 0.0 0.0-0.1 10^3/uL Human Chorionic Gonadotropin, Quant 24 H <5 MIU/ML My Orders Orders - COREY PENDLETON APRN Ct Abdomen/Pelvis Wo (02/15/19 13:27) Urine Bedside (02/15/19 13:27) Hcg,Quantitative (02/15/19 13:34) Cbc With Automated Diff (02/15/19 13:34) Vital Signs/I&O 02/15/19 12:08 Temp 36.7 Pulse 82 Resp 13 B/P (MAP) 114/75 (88) Pulse Ox 99 O2 Delivery Room Air Blood Pressure Mean: 88 POS Departure Communication (Admissions) Due to her positive test we did not do CT scan, on the bedside ultrasound there is a fluid collection a few centimeters deep at the location of this bulge which would suggest seroma.. I did discuss with her the positive test. Impression Primary Impression: Postoperative seroma Additional Impression: test positive Disposition: HOME, SELF-CARE Condition: Stable Departure-Patient Inst. Decision time for Depature: 15:01 Referrals: TAHMINA JOHNSON BRETT D DO NO,LOCAL PHYSICIAN (PCP) Primary Care Physician Patient Instructions: Tests Add. Discharge Instructions: 1. Follow-up with a surgeon of your choosing 2. Return to ER for any concerns 3. All discharge instructions reviewed with patient and/or family. Voiced understanding. COREY PENDLETON APRN Feb 15, 2019 13:32 POS
[2019-02-15 13:53] LABS: BASOPHILS % (AUTO) 0 % (0-10); EOSINOPHILS % (AUTO) 11 % (0-10); HEMATOCRIT 38 % (35-52); HEMOGLOBIN 12.5 G/DL (11.5-16.0); LYMPHOCYTES # (AUTO) 1.1 X 10^3 (1.0-4.0); LYMPHOCYTES % (AUTO) 12 % (12-44); MEAN CORPUSCULAR HEMOGLOBIN 29 PG (25-34); MEAN CORPUSCULAR HGB CONC 33 G/DL (32-36); MEAN CORPUSCULAR VOLUME 86 FL (80-99); MEAN PLATELET VOLUME 10.3 FL (7.4-10.4); MONOCYTES # (AUTO) 0.7 X 10^3 (0.0-1.0); MONOCYTES % (AUTO) 7 % (0-12); NEUTROPHILS # (AUTO) 6.7 X 10^3 (1.8-7.8); NEUTROPHILS % (AUTO) 71 % (42-75); PLATELET COUNT 395 10^3/uL (130-400); RED CELL DISTRIBUTION WIDTH 12.7 % (10.0-14.5); WHITE BLOOD COUNT 9.5 10^3/uL (4.3-11.0)
--- NOTE | 2019-02-15 14:56 | NUR ---
Fahad Encinas in room with ultrasound. Canceling CT due to positive HCG.
[2019-02-15 15:04] VITALS: BP 114/75
--- OUTSIDE RECORDS SUMMARY | 2019-03-12 21:46 | XMS REPORT | Continuity of Care Document ---
Author Organization Unknown Address Unknown Phone Unavailable Allergies Active Description Code Type Severity Reaction Onset Reported/Identified Relationship to Patient Clinical Status Yes CLINDAMYCIN UNKNOWN UNKNOWN Yes CLINDAMYCIN HCL S EVERE SEVERE Yes LATEX MILD MILD Yes No Known Drug Allergies [id number] Drug Allergy Unknown N/A 01/05/2014 Yes clindamycin [id number] Drug Aller gy Moderate oral blisters, 01/01/2019 Medications Medication Packaging Start Date St op Date Route Dosage Sig FENTANYL INJ 100 MCG/2CC VIAL MCG 11/25/2018 11/25/2018 ONCE&0600 LACTATED RINGERS 1000CC IV BAG INJ ml 11/25/2018 12/02/2018 CONTINUOUSEVERY 0 Hour MIDAZOLAM 2CC VIAL INJ 1 MG/ CC (VERSED 2CC VIAL) MG 11/25/2018 11/25/2018 ONCE&1150 CEFAZOLIN VIAL INJ 1 GM (ANCEF) GM 11/25/2018 11/25/2018 ONCE&1345 ONDANSETRON VIAL INJ 4 MG/2CC (ZOFRAN 2CC VIAL) MG 11/25/2018 11/25/2018 PRN ONCE FENTANYL INJ 100 MCG/2CC VIAL MCG 11/25/2018 11/25/2018 ONCE&1618 HYDROCODONE/APAP 7.5/325 TAB (ALEC-TAB 7.5/ 325) TAB 11/25/2018 12/05/2018 PRN EVERY 4 Hour NORMAL SALINE 1000CC IV BAG INJ 0.9 % (NS 1000CC IV BAG) ml 01/27/2019 02/11/2019 CONTINUOUSEVERY 0 Hour CEFAZOLIN VIAL INJ 1 GM (ANCEF) GM 01/27/2019 01/27/2019 ONCE&1330 LACTATED RINGERS 1000CC IV BAG INJ ml 01/27/2019 02/03/2019 CONTINUOUSEVERY 0 Hour ONDANSETRON VIAL INJ 4 MG/2CC (ZOFRAN 2CC VIAL) MG 01/27/2019 01/27/2019 PRN ONCE METOCLOPRAMIDE VIAL INJ 10 M G/2CC (REGLAN 2CC VIAL) MG 01/27/2019 01/27/2019 ONCE&1547 MEPERIDINE SYRINGE INJ 25 MG /CC (DEMEROL SYRINGE) MG 01/27/2019 01/27/2019 ONCE&1547 MEPERIDINE SYRINGE INJ 25 MG /CC (DEMEROL SYRINGE) MG 01/27/2019 01/27/2019 ONCE&1549 FENTANYL INJ 100 MCG/2CC VIAL MCG 01/31/2019 01/31/2019 ONCE&2136 PROMETHAZINE VIAL INJ 25 MG/CC (PHENERGAN VIAL) MG 01/31/2019 01/31/2019 ONCE&2136 NORMAL SALINE 1000CC IV BAG INJ 0.9 % (NS 1000CC IV BAG) ml 01/31/2019 01/31/2019 ONCE&2136 Diazepam inj SYRINGE 5mg/mL 2mL (Valium) MG 01/31/2019 01/31/2019 ONCE&2231 Problems Date Dx Coded Attending Type Code Diagnosis Diagnosed By 09/25/2009 Ot 644.03 10/11/2009 Ot 643.23 LAT E VOMIT PREG- ANTEPART 10/11/2009 Ot 644.03 THR T KIM LABOR- ANTEPART 11/29/2009 Ot 644.13 THR EAT LABOR NEC- ANTEPAR 12/04/2009 Ot 285.9 12/04/2009 Ot 648.21 12/04/2009 Ot V27.0 01/30/2010 Ot 620.2 01/30/2010 Ot 789.09 03/22/2010 Ot 462 04/21/2012 Ot 599.0 04/21/2012 Ot 616.0 04/21/2012 Ot 788.1 04/30/2012 Ot 041.49 04/30/2012 Ot 041.89 04/30/2012 Ot 079.98 04/30/2012 Ot 564.00 04/30/2012 Ot 590.10 04/30/2012 Ot 614.9 04/30/2012 Ot 616.10 04/30/2012 Ot V04.81 07/04/2012 Ot 552.1 09/19/2012 MARILIA VALE MD Ot 599 .0 09/19/2012 MARILIA VALE MD Ot 789.00 03/29/2013 KEVIN MCCRAY Ot 599.70 HEMATURIA, UNSPECIFIED 03/29/2013 KEVIN MCCRAY Ot 723.4 BRACHIAL NEURITIS NOS 03/29/2013 KEVIN MCCRAY Ot 780.79 OTH MALAISE FATIGUE 03/29/2013 KEVIN MCCRAY Ot 789.00 ABDOMINAL PAIN, UNSPECIFIED SITE 05/03/2013 KEVIN MCCRAY Ot 574.20 CHOLELITHIASIS NOS 05/03/2013 KEVIN MCCRAY Ot 787.01 NAUSEA WITH VOMITING 05/04/2013 KEVIN MCCRAY Ot 574.20 CHOLELITHIASIS NOS 05/04/2013 KEVIN MCCRAY Ot 789.01 ABDOMINAL PAIN, RIGHT UPPER QUADRANT 05/12/2013 ERI DO, ANGELA K Ot 338.18 OTHER ACUTE POSTOPERATIVE PAIN 05/12/2013 ERI DO, ANGELA K Ot 599.0 URIN TRACT INFECTION NOS 05/12/2013 ERI DO ANGELA K Ot 787.02 NAUSEA ALONE 05/12/2013 ERI MCMANUS ANGELA K Ot 789.05 ABDOMINAL PAIN, PERIUMBILIC 05/15/2013 TEA GARRISON, STEPHANIE Ot 564.00 UNSPEC CONSTIPATION 05/15/2013 TEA GARRISON, STEPHANIE Ot 789.01 ABDOMINAL PAIN, RIGHT UPPER QUADRANT 10/17/2013 KEVIN MCCRAY Ot 276.51 DEHYDRATION 10/17/2013 KEVIN MCCRAY Ot 620.2 OVARIAN CYST NEC/NOS 10/17/2013 KEVIN MCCRAY Ot 787.01 NAUSEA WITH VOMITING 10/17/2013 KEVIN MCCRAY Ot 789.09 ABDOMINAL PAIN, OTHER SPECIFIED SITE 01/07/2014 ESTEPHANIA MCNAMARA MD Ot 568.0 PERITONEAL [id number]-HS/INF 01/07/2014 ESTEPHANIA MCNAMARA MD Ot 617.9 ENDOMETRIOSIS NOS 01/07/2014 ESTEPHANIA MCNAMARA MD Ot 620.2 OVARIAN CYST NEC/NOS 01/07/2014 ESTEPHANIA MCNAMARA MD Ot 789.03 ABDOMINAL PAIN, RIGHT LOWER QUADRANT 01/11/2014 DIONICIO REEVES MD Ot 599. 0 URIN TRACT INFECTION NOS 01/11/2014 DIONICIO REEVES MD Ot 788. 1 DYSURIA 01/14/2014 ANDERS GARRISON, ESTEPHANIA Taylor Ot 079.99 VIRAL INFECTION NOS 01/14/2014 ANDERS GARRISON, ESTEPHANIA Taylor Ot 590.80 PYELONEPHRITIS NOS 01/14/2014 ANDERS GARRISON, ESTEPHANIA Taylor Ot 646.63 INFECTION-ANTEPARTUM 01/14/2014 ANDERS GARRISON, ESTEPHANIA Taylor Ot 647.63 OTH VIRAL DIS-ANTEPARTUM 01/17/2014 ERIANGELA Moore DO Ot 599.0 URIN TRACT INFECTION NOS 01/17/2014 ANGELA HWANG DO Ot 787.01 NAUSEA WITH VOMITING 01/17/2014 ERI ANGELA MCMANUS Ot 787.03 VOMITING ALONE 05/23/2014 Ot 599.0 URIN TRACT INFECTION NOS 05/23/2014 Ot 787.01 YUNIEL SEA WITH VOMITING 06/19/2014 Ot 553.1 06/19/2014 Ot V72.63 06/19/2014 Ot V74.8 06/19/2014 TEA GARRISON, STEPHANIE Ot 575.11 06/19/2014 TEA GARRISON, STEPHANIE Ot 574.20 06/19/2014 TEA GARRISON, MIKEAAEMMETT Ot V72.84 06/19/2014 ESTEPHANIA MCNAMARA MD Ot 625.9 06/19/2014 ESTEPHANIA MCNAMARA MD Ot V72.63 06/19/2014 ESTEPHANIA MCNAMARA MD Ot V74.8 06/19/2014 KEVIN MCCRAY Ot 648.93 OTH CURR COND-ANTEPARTUM 06/19/2014 KEVIN MCCRAY Ot 787.02 NAUSEA ALONE 06/19/2014 KEVIN MCCRAY Ot 787.91 DIARRHEA 06/19/2014 KEVIN MCCRAY Ot 789.00 ABDOMINAL PAIN, UNSPECIFIED SITE 06/24/2014 Ot 553.1 06/24/2014 Ot V72.63 06/24/2014 Ot V74.8 06/24/2014 TEA GARRISON, STEPHANIE Ot 575.11 06/24/2014 TEA GARRISON, MIKEAAKI Ot 574.20 06/24/2014 TEA GARRISON, TAKAAEMMETT Ot V72.84 06/24/2014 ANDERS GARRISON, ESTEPHANIA Taylor Ot 625.9 06/24/2014 ANDERS GARRISON, ESTEPHANIA Taylor Ot V72.63 06/24/2014 ANDERS GARRISON, ESTEPHANIA Taylor Ot V74.8 06/27/2014 COREY PENDLETON FRONT END SPECIALIST Ot 640.03 THREATEN ABORT-ANTEPART 06/27/2014 OCREY PENDLETON FRONT END SPECIALIST Ot 644.03 THRT KIM LABOR-ANTEPART 06/28/2014 COREY PENDLETON FRONT END SPECIALIST Ot 623 .8 NONINFLAM DIS VAGINA NEC 06/28/2014 COREY PENDLETON FRONT END SPECIALIST Ot 634.90 SPON ABORT UNCOMPL-UNSP 07/15/2014 ANDERS GARRISON, ESTEPHANIA Taylor Ot 615.9 UTERINE INFLAM DIS NOS 07/15/2014 ANDERS GARRISON, ESTEPHANIA Taylor Ot 620.1 CORPUS LUTEUM CYST 07/15/2014 ANDERS GARRISON, ESTEPHANIA Taylor Ot V74.8 SCREEN-BACTERIAL DIS NEC 08/28/2014 KEVIN MCCRAY Ot 599.0 URIN TRACT INFECTION NOS 09/04/2014 ANDERS GARRISON, ESTEPHANIA Taylor Ot 634.11 10/15/2014 Ot 553.1 10/15/2014 Ot V72.63 10/15/2014 Ot V74.8 10/15/2014 TEA GARRISON, STEPHANIE Ot 575.11 10/15/2014 TEA GARRISON, STEPHANIE Ot 574.20 10/15/2014 TEA GARRISON, STEPHANIE Ot V72.84 10/15/2014 ANDERS GARRISON, ESTEPHANIA Taylor Ot 625.9 10/15/2014 ANDERS GARRISON, ESTEPHANIA Taylor Ot V72.63 10/15/2014 ESTEPHANIA MCNAMARA MD Ot V74.8 10/15/2014 ESTEPHANIA MCNAMARA MD Ot 634.11 10/15/2014 DEBBIE RASHEED DO Ot 599.0 URIN TRACT INFECTION NOS 10/15/2014 DEBBIE RASHEED DO Ot 789.09 ABDOMINAL PAIN, OTHER SPECIFIED SITE 10/15/2014 Ot 553.1 10/15/2014 Ot V72.63 10/15/2014 Ot V74.8 10/15/2014 TEA GARRISON, STEPHANIE Ot 575.11 10/15/2014 TEA GARRISON, STEPHANIE Ot 574.20 10/15/2014 TEA GARRISON, STEPHANIE Ot V72.84 10/15/2014 ANDERS GARRISON, ESTEPHANIA Taylor Ot 625.9 10/15/2014 ANDERS GARRISON, ESTEPHANIA Taylor Ot V72.63 10/15/2014 ANDERS GARRISON, ESTEPHANIA Taylor Ot V74.8 10/15/2014 ANDERS GARRISON, ESTEPHANIA Taylor Ot 634.11 10/17/2014 Ot 553.1 10/17/2014 Ot V72.63 10/17/2014 Ot V74.8 10/17/2014 TEA GARRISON, STEPHANIE Ot 575.11 10/17/2014 TEA GARRISON, STEPHANIE Ot 574.20 10/17/2014 TEA GARRISON, STEPHANIE Ot V72.84 10/17/2014 ANDERS GARRISON, ESTEPHANIA Taylor Ot 625.9 10/17/2014 ANDERS GARRISON, ESTEPHANIA Taylor Ot V72.63 10/17/2014 ANDERS GARRISON, ESTEPHANIA Taylor Ot V74.8 10/17/2014 ANDERS GARRISON, ESTEPHANIA Taylor Ot 634.11 10/18/2014 KEVIN MCCRAY Ot 595.9 CYSTITIS NOS 10/18/2014 KEVIN MCCRAY Ot 599.70 HEMATURIA, UNSPECIFIED 11/04/2014 SHAHRAM GARRISON, LUISITO Boyle Ot 789.04 ABDOMINAL PAIN, LEFT LOWER QUADRANT 09/17/2015 Ot 599.0 URIN TRACT INFECTION NOS 09/17/2015 Ot 616.0 CERV ICITIS 09/17/2015 Ot 788.1 DYSURIA 06/29/2018 TEA GARRISON, STEPHANIE Ot 575.11 CHRONIC CHOLECYSTITIS 06/29/2018 TEA GARRISON, STEPHANIE Ot 574.20 CHOLELITHIASIS NOS 06/29/2018 TEA GARRISON, STEPHANIE Ot V72.84 EXAM PRE-OPERATIVE NOS 06/29/2018 ANDERS GARRISON, ESTEPHANIA Taylor Ot 625.9 FEM GENITAL SYMPTOMS NOS 06/29/2018 ANDERS GARRISON, ESTEPHANIA Taylor Ot V72.63 PRE-PROCEDURAL LABORATORY EXAMINATION 06/29/2018 ANDERS GARRISON, ESTEPHANIA Taylor Ot V74.8 SCREEN-BACTERIAL DIS NEC 06/29/2018 ANDERS GARRISON, ESTEPHANIA Taylor Ot 634.11 SPON ABORT W HEMORR-INC 06/29/2018 DIONICIO REEVES MD Ot F32. 9 MAJOR DEPRESSIVE DISORDER, SINGLE EPISOD 06/29/2018 DIONICIO REEVES MD Ot K04. 7 PERIAPICAL ABSCESS WITHOUT SINUS 06/29/2018 DIONICIO REEVES MD A Ot R22. 1 LOCALIZED SWELLING, MASS AND LUMP, NECK 06/29/2018 DIONICIO REEVES MD A Ot T78.40XA ALLERGY, UNSPECIFIED, INITIAL ENCOUNTER 06/29/2018 DIONICIO REEVES MD A Ot Z87. 19 PERSONAL HISTORY OF OTHER DISEASES OF TH 06/29/2018 DIONICIO REEVES MD A Ot Z87.440 PERSONAL HISTORY OF URINARY (TRACT) INFE 06/29/2018 DIONICIO REEVES MD A Ot Z87.448 PERSONAL HISTORY OF OTHER DISEASES OF UR 06/29/2018 OLEGARIO REEVES MDNT A Ot Z90. 49 ACQUIRED ABSENCE OF OTHER SPECIFIED PART 06/29/2018 OLEGARIO REEVES MDNT A Ot Z90. 89 ACQUIRED ABSENCE OF OTHER ORGANS 06/29/2018 DIONICIO REEVES MD A Ot Z98.890 OTHER SPECIFIED POSTPROCEDURAL STATES 07/02/2018 DIONICIO REEVES MD Ot F32. 9 MAJOR DEPRESSIVE DISORDER, SINGLE EPISOD 07/02/2018 DIONICIO REEVES MD Ot K04. 7 PERIAPICAL ABSCESS WITHOUT SINUS 07/02/2018 DIONICIO REEVES MD Ot R22. 1 LOCALIZED SWELLING, MASS AND LUMP, NECK 07/02/2018 DIONICIO REEVES MD A Ot T78.40XA ALLERGY, UNSPECIFIED, INITIAL ENCOUNTER 07/02/2018 DIONICIO REEVES MD A Ot Z87. 19 PERSONAL HISTORY OF OTHER DISEASES OF TH 07/02/2018 DIONICIO REEVES MD A Ot Z87.440 PERSONAL HISTORY OF URINARY (TRACT) INFE 07/02/2018 OLEGARIO REEVES MDNT A Ot Z87.448 PERSONAL HISTORY OF OTHER DISEASES OF UR 07/02/2018 DIONICIO REEVES MD A Ot Z90. 49 ACQUIRED ABSENCE OF OTHER SPECIFIED PART 07/02/2018 DIONICIO REEVES MD A Ot Z90. 89 ACQUIRED ABSENCE OF OTHER ORGANS 07/02/2018 DIONICIO REEVES MD A Ot Z98.890 OTHER SPECIFIED POSTPROCEDURAL STATES 10/21/2018 DEBBIE RASHEED DO, Ot F32.9 MAJOR DEPRESSIVE DISORDER, SINGLE EPISOD 10/21/2018 DEBBIE RASHEED DO, Ot H66.92 OTITIS MEDIA, UNSPECIFIED, LEFT EAR 10/21/2018 DEBBIE RASHEED DO, Ot J20.9 ACUTE BRONCHITIS, UNSPECIFIED 10/21/2018 DEBBIE RASHEED DO, Ot M94.0 CHONDROCOSTAL JUNCTION SYNDROME [TIETZE] 10/21/2018 DEBBIE RASHEED DO Ot R0 5 COUGH 10/21/2018 DEBBIE RASHEED DO, Ot Z87.19 PERSONAL HISTORY OF OTHER DISEASES OF TH 10/21/2018 DEBBIE RASHEED DO, Ot Z87.440 PERSONAL HISTORY OF URINARY (TRACT) INFE 10/21/2018 DEBBIE RASHEED DO, Ot Z90.49 ACQUIRED ABSENCE OF OTHER SPECIFIED PART 10/21/2018 DEBBIE RASHEED DO, Ot Z90.89 ACQUIRED ABSENCE OF OTHER ORGANS 10/22/2018 STEPHANIE MASSEY MD Ot 575.11 CHRONIC CHOLECYSTITIS 10/22/2018 STEPHANIE MASSEY MD Ot 574.20 CHOLELITHIASIS NOS 10/22/2018 STEPHANIE MASSEY MD Ot V72.84 EXAM PRE-OPERATIVE NOS 10/22/2018 ESTEPHANIA MCNAMARA MD Ot 625.9 FEM GENITAL SYMPTOMS NOS 10/22/2018 ESTEPHANIA MCNAMARA MD, Ot V72.63 PRE-PROCEDURAL LABORATORY EXAMINATION 10/22/2018 ESTEPHANIA MCNAMARA MD, Ot V74.8 SCREEN-BACTERIAL DIS NEC 10/22/2018 ESTEPHANIA MCNAMARA MD, Ot 634.11 SPON ABORT W HEMORR-INC 2018 DEBBIE RASHEED DO, Ot F32.9 MAJOR DEPRESSIVE DISORDER, SINGLE EPISOD 2018 DEBBIE RASHEED DO, Ot H66.92 OTITIS MEDIA, UNSPECIFIED, LEFT EAR 2018 DEBBIE RASHEED DO, Ot J20.9 ACUTE BRONCHITIS, UNSPECIFIED 2018 DEBBIE RASHEED DO, Ot M94.0 CHONDROCOSTAL JUNCTION SYNDROME [TIETZE] 2018 DEBBIE RASHEED DO Ot R0 5 COUGH 2018 DEBBIE RASHEED DO D Ot Z87.19 PERSONAL HISTORY OF OTHER DISEASES OF TH 2018 KATHYA DEBBIE MCMANUS Ot Z87.440 PERSONAL HISTORY OF URINARY (TRACT) INFE 2018 DEBBIE RASHEED DO, Ot Z90.49 ACQUIRED ABSENCE OF OTHER SPECIFIED PART 2018 KATHYA DEBBIE MCMANUS Ot Z90.89 ACQUIRED ABSENCE OF OTHER ORGANS 11/02/2018 ANDERS GARRISON, ESTEPHANIA Taylor Ot 625.9 FEM GENITAL SYMPTOMS NOS 11/02/2018 ESTEPHANIA MCNAMARA MD, Ot V72.63 PRE-PROCEDURAL LABORATORY EXAMINATION 11/02/2018 ESTEPHANIA MCNAMARA MD, Ot V74.8 SCREEN-BACTERIAL DIS NEC 11/02/2018 ESTEPHANIA MCNAMARA MD, Ot 634.11 SPON ABORT W HEMORR-INC 11/09/2018 Brown, Jesus W 692.6 CONTACT DERMATITIS AND OTHER ECZEMA DUE TO PLANTS [EXCEPT FOOD] 11/09/2018 Brown, Jesus W L25.5 UNSPECIFIED CONTACT DERMATITIS DUE TO PLANTS, EXCEPT FOOD 11/09/2018 Brown, Jesus W 381.81 DYSFUNCTION OF EUSTACHIAN TUBE 11/09/2018 Brown, Jesus W 692.6 CONTACT DERMATITIS AND OTHER ECZEMA DUE TO PLANTS [EXCEPT FOOD] 11/09/2018 Brown, Jesus W H69.90 UNSPECIFIED EUSTACHIAN TUBE DISORDER, UNSPECIFIED EAR 11/09/2018 Brown, Jesus W L25.5 UNSPECIFIED CONTACT DERMATITIS DUE TO PLANTS, EXCEPT FOOD 11/09/2018 Brown, Jesus W 381.81 DYSFUNCTION OF EUSTACHIAN TUBE 11/09/2018 Brown, Jesus W 692.6 CONTACT DERMATITIS AND OTHER ECZEMA DUE TO PLANTS [EXCEPT FOOD] 11/09/2018 Brown, Jesus W H69.90 UNSPECIFIED EUSTACHIAN TUBE DISORDER, UNSPECIFIED EAR 11/09/2018 Brown, Jesus W L25.5 UNSPECIFIED CONTACT DERMATITIS DUE TO PLANTS, EXCEPT FOOD 01/06/2019 COREY PENDLETON APRN Ot F17.210 NICOTINE DEPENDENCE, CIGARETTES, UNCOMPL 01/06/2019 COREY PENDLETON APRN Ot F32 .9 MAJOR DEPRESSIVE DISORDER, SINGLE EPISOD 01/06/2019 COREY PENDLETON APRN Ot T81.31XA DISRUPTION OF EXTERNAL OPERATION (SURGIC 01/06/2019 COREY PENDLETON APRN Ot Z87.440 PERSONAL HISTORY OF URINARY (TRACT) INFE 01/06/2019 COREY PENDLETON APRN Ot Z88 .1 ALLERGY STATUS TO OTHER ANTIBIOTIC AGENT 01/06/2019 COREY PENDLETON APRN Ot Z90.49 ACQUIRED ABSENCE OF OTHER SPECIFIED PART 01/06/2019 COREY PENDLETON APRN Ot Z90.89 ACQUIRED ABSENCE OF OTHER ORGANS 01/08/2019 COREY PENDLETON APRN Ot F17.210 NICOTINE DEPENDENCE, CIGARETTES, UNCOMPL 01/08/2019 COREY PENDLETON APRN Ot F32 .9 MAJOR DEPRESSIVE DISORDER, SINGLE EPISOD 01/08/2019 COREY PENDLETON APRN Ot T81.31XA DISRUPTION OF EXTERNAL OPERATION (SURGIC 01/08/2019 COREY PENDLETON APRN Ot Z87.440 PERSONAL HISTORY OF URINARY (TRACT) INFE 01/08/2019 COREY PENDLETON APRN Ot Z88 .1 ALLERGY STATUS TO OTHER ANTIBIOTIC AGENT 01/08/2019 COREY PENDLETON APRN Ot Z90.49 ACQUIRED ABSENCE OF OTHER SPECIFIED PART 01/08/2019 COREY PENDLETON APRN Ot Z90.89 ACQUIRED ABSENCE OF OTHER ORGANS 01/11/2019 COREY PENDLETON APRN Ot F17.210 NICOTINE DEPENDENCE, CIGARETTES, UNCOMPL 01/11/2019 COREY PENDLETON APRN Ot F32 .9 MAJOR DEPRESSIVE DISORDER, SINGLE EPISOD 01/11/2019 COREY PENDLETON APRN Ot T81.89XA OTH COMPLICATIONS OF PROCEDURES, NEC, IN 01/11/2019 COREY PENDLETON APRN Ot Z87.440 PERSONAL HISTORY OF URINARY (TRACT) INFE 01/11/2019 COREY PENDLETON APRN Ot Z88 .1 ALLERGY STATUS TO OTHER ANTIBIOTIC AGENT 01/11/2019 COREY PENDLETON APRN Ot Z90.49 ACQUIRED ABSENCE OF OTHER SPECIFIED PART 01/11/2019 COREY PENDLETON APRN Ot Z90.89 ACQUIRED ABSENCE OF OTHER ORGANS 01/15/2019 COREY PENDLETON APRN Ot F17.210 NICOTINE DEPENDENCE, CIGARETTES, UNCOMPL 01/15/2019 COREY PENDLETON APRN Ot F32 .9 MAJOR DEPRESSIVE DISORDER, SINGLE EPISOD 01/15/2019 COREY PENDLETON APRN Ot T81.89XA OTH COMPLICATIONS OF PROCEDURES, NEC, IN 01/15/2019 COREY PENDLETON FRONT END SPECIALIST Ot Z87.440 PERSONAL HISTORY OF URINARY (TRACT) INFE 01/15/2019 COREY PENDLETON FRONT END SPECIALIST Ot Z88 .1 ALLERGY STATUS TO OTHER ANTIBIOTIC AGENT 01/15/2019 COREY PENDLETON FRONT END SPECIALIST Ot Z90.49 ACQUIRED ABSENCE OF OTHER SPECIFIED PART 01/15/2019 COREY PENDLETON FRONT END SPECIALIST Ot Z90.89 ACQUIRED ABSENCE OF OTHER ORGANS 01/24/2019 DAWSON DO, SADIE L Ot F32.9 MAJOR DEPRESSIVE DISORDER, SINGLE EPISOD 01/24/2019 DAWSON DO, SADIE L Ot F41.9 ANXIETY DISORDER, UNSPECIFIED 01/24/2019 DAWSON DO, SADIE L Ot L03.3 16 CELLULITIS OF UMBILICUS 01/24/2019 DAWSON DO, SADIE L Ot T81.40XA INFECTION FOLLOWING A PROCEDURE, UNSPECI 01/24/2019 DAWSON DO, SADIE L Ot Z77.2 2 CNTCT W AND EXPSR TO ENVIRON TOBACCO SMO 01/24/2019 DAWSON DO, SADIE L Ot Z87.4 40 PERSONAL HISTORY OF URINARY (TRACT) INFE 01/24/2019 DAWSON DO, SADIE L Ot Z88.1 ALLERGY STATUS TO OTHER ANTIBIOTIC AGENT 01/24/2019 DAWSON DO, SADIE L Ot Z90.4 9 ACQUIRED ABSENCE OF OTHER SPECIFIED PART 01/24/2019 DAWSON DO, SADIE L Ot Z90.8 9 ACQUIRED ABSENCE OF OTHER ORGANS 01/28/2019 DAWSON DO, SADIE L Ot F32.9 MAJOR DEPRESSIVE DISORDER, SINGLE EPISOD 01/28/2019 DAWSON DO, SADIE L Ot F41.9 ANXIETY DISORDER, UNSPECIFIED 01/28/2019 DAWSON DO, SADIE L Ot L03.3 16 CELLULITIS OF UMBILICUS 01/28/2019 DAWSON DO, SADIE L Ot T81.40XA INFECTION FOLLOWING A PROCEDURE, UNSPECI 01/28/2019 DAWSON DO, SADIE L Ot Z77.2 2 CNTCT W AND EXPSR TO ENVIRON TOBACCO SMO 01/28/2019 DAWSON DO, SADIE L Ot Z87.4 40 PERSONAL HISTORY OF URINARY (TRACT) INFE 01/28/2019 DAWSON DO, SADIE L Ot Z88.1 ALLERGY STATUS TO OTHER ANTIBIOTIC AGENT 01/28/2019 DAWSON DO, SADIE L Ot Z90.4 9 ACQUIRED ABSENCE OF OTHER SPECIFIED PART 01/28/2019 DAWSON DO, SADIE L Ot Z90.8 9 ACQUIRED ABSENCE OF OTHER ORGANS 01/31/2019 MARY ANN ZIEGLER MD Ot F17.210 NICOTINE DEPENDENCE, CIGARETTES, UNCOMPL 01/31/2019 MARY ANN ZIEGLER MD, Ot F32. 9 MAJOR DEPRESSIVE DISORDER, SINGLE EPISOD 01/31/2019 MARY ANN ZIEGLER MD, Ot F41. 9 ANXIETY DISORDER, UNSPECIFIED 01/31/2019 MARY ANN ZIEGLER MD Ot G89. 18 OTHER ACUTE POSTPROCEDURAL PAIN 01/31/2019 MARY ANN ZIEGLER MD Ot R10. 9 UNSPECIFIED ABDOMINAL PAIN 01/31/2019 MARY ANN ZIEGLER MD, Ot R11. 10 VOMITING, UNSPECIFIED 01/31/2019 MARY ANN ZIEGLER MD, Ot Z87.440 PERSONAL HISTORY OF URINARY (TRACT) INFE 01/31/2019 MARY ANN ZIEGLER MD, Ot Z88. 1 ALLERGY STATUS TO OTHER ANTIBIOTIC AGENT 01/31/2019 MARY ANN ZIEGLER MD, Ot Z90. 49 ACQUIRED ABSENCE OF OTHER SPECIFIED PART 01/31/2019 MARY ANN ZIEGLER MD, Ot Z90. 89 ACQUIRED ABSENCE OF OTHER ORGANS 01/31/2019 Brown, Jesus W 338.18 OTHER ACUTE POSTOPERATIVE PAIN 01/31/2019 Brown, Jesus W 787.01 NAUSEA WITH VOMITING 01/31/2019 Brown, Jesus W G89.18 OTHER ACUTE POSTPROCEDURAL PAIN 01/31/2019 Brown, Jesus W H69.90 UNSPECIFIED EUSTACHIAN TUBE DISORDER, UNSPECIFIED EAR 01/31/2019 Brown, Jesus W L25.5 UNSPECIFIED CONTACT DERMATITIS DUE TO PLANTS, EXCEPT FOOD 01/31/2019 Brown, Jesus W R11.2 NAUSEA WITH VOMITING, UNSPECIFIED 02/15/2019 COREY PENDLETON APRN Ot F32 .9 MAJOR DEPRESSIVE DISORDER, SINGLE EPISOD 02/15/2019 COREY PENDLETON APRN Ot F41 .9 ANXIETY DISORDER, UNSPECIFIED 02/15/2019 COREY PENDLETON APRN Ot L76.34 POSTPROC SEROMA OF SKIN, SUBCU FOLLOWING 02/15/2019 COREY PENDLETON APRN Ot R10 .9 UNSPECIFIED ABDOMINAL PAIN 02/15/2019 COREY PENDLETON APRN Ot Z32.01 ENCOUNTER FOR TEST, RESULT POS 02/15/2019 COREY PENDLETON FRONT END SPECIALIST Ot Z77.22 CNTCT W AND EXPSR TO ENVIRON TOBACCO SMO 02/15/2019 COREY PENDLETON FRONT END SPECIALIST Ot Z87.440 PERSONAL HISTORY OF URINARY (TRACT) INFE 02/15/2019 COREY PENDLETON FRONT END SPECIALIST Ot Z88 .1 ALLERGY STATUS TO OTHER ANTIBIOTIC AGENT 02/15/2019 COREY PENDLETON FRONT END SPECIALIST Ot Z90.49 ACQUIRED ABSENCE OF OTHER SPECIFIED PART 02/15/2019 COREY PENDLETON FRONT END SPECIALIST Ot Z90.89 ACQUIRED ABSENCE OF OTHER ORGANS 02/15/2019 COREY PENDLETON APRN Ot Z98.890 OTHER SPECIFIED POSTPROCEDURAL STATES 02/17/2019 AIMEE VELAP Ot F32.9 MAJOR DEPRESSIVE DISORDER, SINGLE EPISOD 02/17/2019 AIMEE VELAP Ot F41.9 ANXIETY DISORDER, UNSPECIFIED 02/17/2019 AIMEE VELAP Ot O99.341 OTH MENTAL DISORDERS COMPLICATING PREGNA 02/17/2019 AIMEE VELA HOSPICE EDUCATOR Ot O9A.211 INJ/POISN/OTH CONSEQ OF EXTERNAL CAUSES 02/17/2019 AIMEE VELA HOSPICE EDUCATOR Ot R10.9 UNSPECIFIED ABDOMINAL PAIN 02/17/2019 AIMEE VELA HOSPICE EDUCATOR Ot S30.1XXD CONTUSION OF ABDOMINAL WALL, SUBSEQUENT 02/17/2019 DANE, AIMEE HOSPICE EDUCATOR Ot X58.XXXD EXPOSURE TO OTHER SPECIFIED FACTORS, SUB 02/17/2019 AIMEE VELA HOSPICE EDUCATOR Ot Z3A.01 LESS THAN 8 WEEKS GESTATION OF 02/17/2019 AIMEE VELA HOSPICE EDUCATOR Ot Z77.22 CNTCT W AND EXPSR TO ENVIRON TOBACCO SMO 02/17/2019 DANE AIMEE HOSPICE EDUCATOR Ot Z87.440 PERSONAL HISTORY OF URINARY (TRACT) INFE 02/17/2019 DANE AIMEE HOSPICE EDUCATOR Ot Z87.891 PERSONAL HISTORY OF NICOTINE DEPENDENCE 02/17/2019 AIMEE VELA HOSPICE EDUCATOR Ot Z88.1 ALLERGY STATUS TO OTHER ANTIBIOTIC AGENT 02/17/2019 AIMEE VELA HOSPICE EDUCATOR Ot Z90.49 ACQUIRED ABSENCE OF OTHER SPECIFIED PART 02/17/2019 AIMEE VELA HOSPICE EDUCATOR Ot Z90.89 ACQUIRED ABSENCE OF OTHER ORGANS 02/17/2019 AIMEE VELA HOSPICE EDUCATOR Ot Z98.890 OTHER SPECIFIED POSTPROCEDURAL STATES 02/20/2019 COREY PENDLETON APRN Ot F32 .9 MAJOR DEPRESSIVE DISORDER, SINGLE EPISOD 02/20/2019 COREY PENDLETON FRONT END SPECIALIST Ot F41 .9 ANXIETY DISORDER, UNSPECIFIED 02/20/2019 COREY PENDLETON APRN Ot L76.34 POSTPROC SEROMA OF SKIN, SUBCU FOLLOWING 02/20/2019 COREY PENDLETON APRN Ot R10 .9 UNSPECIFIED ABDOMINAL PAIN 02/20/2019 COREY PENDLETON APRN Ot Z32.01 ENCOUNTER FOR TEST, RESULT POS 02/20/2019 COREY PENDLETON APRN Ot Z77.22 CNTCT W AND EXPSR TO ENVIRON TOBACCO SMO 02/20/2019 COREY PENDLETON APRN Ot Z87.440 PERSONAL HISTORY OF URINARY (TRACT) INFE 02/20/2019 COREY PENDLETON APRN Ot Z88 .1 ALLERGY STATUS TO OTHER ANTIBIOTIC AGENT 02/20/2019 COREY PENDLETON APRN Ot Z90.49 ACQUIRED ABSENCE OF OTHER SPECIFIED PART 02/20/2019 COREY PENDLETON APRN Ot Z90.89 ACQUIRED ABSENCE OF OTHER ORGANS 02/20/2019 COREY PENDLETON APRN Ot Z98.890 OTHER SPECIFIED POSTPROCEDURAL STATES 02/24/2019 AIMEE VELAP Ot F32.9 MAJOR DEPRESSIVE DISORDER, SINGLE EPISOD 02/24/2019 AIMEE VELA HOSPICE EDUCATOR Ot F41.9 ANXIETY DISORDER, UNSPECIFIED 02/24/2019 AIMEE VELA HOSPICE EDUCATOR Ot O99.341 OTH MENTAL DISORDERS COMPLICATING PREGNA 02/24/2019 AIMEE VELA HOSPICE EDUCATOR Ot O9A.211 INJ/POISN/OTH CONSEQ OF EXTERNAL CAUSES 02/24/2019 DANEAIMEE Hu HOSPICE EDUCATOR Ot R10.9 UNSPECIFIED ABDOMINAL PAIN 02/24/2019 AIMEE VELA HOSPICE EDUCATOR Ot S30.1XXD CONTUSION OF ABDOMINAL WALL, SUBSEQUENT 02/24/2019 AIMEE VELA HOSPICE EDUCATOR Ot X58.XXXD EXPOSURE TO OTHER SPECIFIED FACTORS, SUB 02/24/2019 AIMEE VELA HOSPICE EDUCATOR Ot Z3A.01 LESS THAN 8 WEEKS GESTATION OF 02/24/2019 AIMEE VELA HOSPICE EDUCATOR Ot Z77.22 CNTCT W AND EXPSR TO ENVIRON TOBACCO SMO 02/24/2019 AIMEE VELAP Ot Z87.440 PERSONAL HISTORY OF URINARY (TRACT) INFE 02/24/2019 AIMEE VELA HOSPICE EDUCATOR Ot Z87.891 PERSONAL HISTORY OF NICOTINE DEPENDENCE 02/24/2019 AIMEE VELAP Ot Z88.1 ALLERGY STATUS TO OTHER ANTIBIOTIC AGENT 02/24/2019 AIMEE VELA HOSPICE EDUCATOR Ot Z90.49 ACQUIRED ABSENCE OF OTHER SPECIFIED PART 02/24/2019 AIMEE VELA HOSPICE EDUCATOR Ot Z90.89 ACQUIRED ABSENCE OF OTHER ORGANS 02/24/2019 AIMEE VELA HOSPICE EDUCATOR Ot Z98.890 OTHER SPECIFIED POSTPROCEDURAL STATES 02/26/2019 AIMEE VELA HOSPICE EDUCATOR Ot F32.9 MAJOR DEPRESSIVE DISORDER, SINGLE EPISOD 02/26/2019 AIMEE VELA HOSPICE EDUCATOR Ot F41.9 ANXIETY DISORDER, UNSPECIFIED 02/26/2019 AIMEE VELAP Ot O99.341 OTH MENTAL DISORDERS COMPLICATING PREGNA 02/26/2019 AIMEE VELA HOSPICE EDUCATOR Ot O9A.211 INJ/POISN/OTH CONSEQ OF EXTERNAL CAUSES 02/26/2019 AIMEE VELAP Ot R10.9 UNSPECIFIED ABDOMINAL PAIN 02/26/2019 AIMEE VELAP Ot S30.1XXD CONTUSION OF ABDOMINAL WALL, SUBSEQUENT 02/26/2019 AIMEE VELAP Ot X58.XXXD EXPOSURE TO OTHER SPECIFIED FACTORS, SUB 02/26/2019 AIMEE VELA HOSPICE EDUCATOR Ot Z3A.01 LESS THAN 8 WEEKS GESTATION OF 02/26/2019 AIMEE VELA HOSPICE EDUCATOR Ot Z77.22 CNTCT W AND EXPSR TO ENVIRON TOBACCO SMO 02/26/2019 AIMEE VELAP Ot Z87.440 PERSONAL HISTORY OF URINARY (TRACT) INFE 02/26/2019 AIMEE VELA HOSPICE EDUCATOR Ot Z87.891 PERSONAL HISTORY OF NICOTINE DEPENDENCE 02/26/2019 AIMEE VELA HOSPICE EDUCATOR Ot Z88.1 ALLERGY STATUS TO OTHER ANTIBIOTIC AGENT 02/26/2019 AIMEE VELA HOSPICE EDUCATOR Ot Z90.49 ACQUIRED ABSENCE OF OTHER SPECIFIED PART 02/26/2019 DANE AIMEE HOSPICE EDUCATOR Ot Z90.89 ACQUIRED ABSENCE OF OTHER ORGANS 02/26/2019 AIMEE VELA HOSPICE EDUCATOR Ot Z98.890 OTHER SPECIFIED POSTPROCEDURAL STATES Procedures There is no data. Results Test Result Range Complete blood count (CBC) with automate d white blood cell (WBC) differential - 10/21/18 22:55 Blood leukocytes automated count (number/volume) 9.1 10*3/uL 4.3-11.0 Blood erythrocytes automated count (number/volume) 4.15 10*6/uL 4.35-5.85 Venous blood hemoglobin measurement (mass/volume) 12.2 g/dL 11.5-16.0 Blood hematocrit (volume fraction) 37 % 35-52 Automated erythrocyte mean corpuscular volume 90 [ foz_us] 80-99 Automated erythrocyte mean corpuscular h emoglobin (mass per erythrocyte) 29 pg 25-34 Automated erythrocyte mean corpuscular h emoglobin concentration measurement (mass/volume) 33 g/dL 32-36 Automated erythrocyte distribution width ratio 12. 3 % 10.0- 14.5 Automated blood platelet count (count/volume) 315 10*3/uL 130-400 Automated blood platelet mean volume measurement 10.6 [foz_us] 7.4-10.4 Automated blood neutrophils/100 leukocytes 59 % 42-75 Automated blood lymphocytes/100 leukocytes 29 % 12-44 Blood monocytes/100 leukocytes 9 % 0-12 Automated blood eosinophils/100 leukocytes 2 % 0-10 Automated blood basophils/100 leukocytes 1 % 0-10 Blood neutrophils automated count (number/volume) 5.4 10*3 1.8-7.8 Blood lymphocytes automated count (number/volume) 2.6 10*3 1.0-4.0 Blood monocytes automated count (number/volume) 0. 8 10*3 0.0-1.0 Automated eosinophil count 0.2 10*3/uL 0 .0-0.3 Automated blood basophil count (count/volume) 0.1 10*3/uL 0.0-0.1 Comprehensive metabolic panel - 10/21/18 22:55 Serum or plasma sodium measurement (moles/volume) 142 mmol/L 135-145 Serum or plasma potassium measurement (moles/volume) 3.7 mmol/L 3.6-5.0 Serum or plasma chloride measurement (moles/volume) 105 mmol/L 98-107 Carbon dioxide 21 mmol/L 21-32 Serum or plasma anion gap determination (moles/volume) 16 mmol/L 5-14 Serum or plasma urea nitrogen measurement (mass/volume ) 6 mg/dL 7-18 Serum or plasma creatinine measurement (mass/volume) 0.76 mg/dL 0.60-1.30 Serum or plasma urea nitrogen/creatinine mass ratio 8 NRG Serum or plasma creatinine measurement w ith calculation of estimated glomerular filtration rate > NRG Serum or plasma glucose measurement (mass/volume) 93 mg/dL 70-105 Serum or plasma calcium measurement (mass/volume) 8.7 mg/dL 8.5-10.1 Serum or plasma total bilirubin measurement (mass/volu me) 0.2 mg/dL 0.1-1.0 Serum or plasma alkaline phosphatase maureen surement (enzymatic activity/volume) 66 U/L 40-136 Serum or plasma aspartate aminotransfera se measurement (enzymatic activity/volume) 12 U/L 5-34 Serum or plasma alanine aminotransferase measurement (enzymatic activity/volume) 8 U/L 0-55 Serum or plasma protein measurement (mass/volume) 7.1 g/dL 6.4-8.2 Serum or plasma albumin measurement (mass/volume) 4.1 g/dL 3.2-4.5 CALCIUM CORRECTED 8.6 mg/dL 8.5-10.1 CBC with Auto Diff - 11/19/18 19:01 Baso% 0.50 % 0.00-2.50 Eos 0.2 K/uL 0.0-0.7 Eos% 3.2 % 0.0-7.0 Hct 43.1 % 36.0-46.0 Hgb 14.1 g/dL 13.0-15.0 Lym 2.68 K/uL 0.60-3.40 Lym% 42.3 % 10.0-50.0 MCH 29.0 pg 27.0-31.0 MCHC 32.7 g/dL 32.0-36.0 MCV 88.7 fL 80.0-97.0 Howard% 8.4 % 0.0-12.0 MPV 11.5 fL 7.4-10.0 David% 45.6 % 37.0-80.0 Plt 280 K/uL 150-400 RBC 4.86 M/uL 3.60-5.00 RDW 13.5 % 11.6-14.8 WBC 6.33 K/uL 5.00-10.00 David 2.89 K/uL 2.00-6.90 Howard 0.5 K/uL 0.0-0.9 Baso 0.0 K/uL 0.0-0.2 MRSA Screen - 11/19/18 19:01 FINAL CULTURE RESULTS MRSA POSITIVE Nasal Culture MEDIA PLATED Setup at 19:19 on 11/19/2018 Gram stain microscopy - 01/01/19 21:34 Gram stain microscopy No bacteria seen NRG Bacteria identification in wound by cult ure - 01/01/19 21:34 Bacteria identification in wound by culture [id number] NRG FREE TEXT EXTERNAL SUSCEPTIBILITY REPORTED 9, 1342 NRG QUANTITY OF GROWTH Moderate Growth NRG FREE TEXT ENTRY 2 METHICILLIN SENSITIVE STAPH JANAK US NRG Dirithromycin susceptibility test by dis k diffusion - 01/01/19 21:34 Oxacillin susceptibility test by minimum inhibitory co ncentration 0.5 NRG Clindamycin susceptibility test by minimum inhibitory concentration <= NRG Erythromycin susceptibility test by minimum inhibitory concentration <= NRG Trimethoprim/sulfamethoxazole susceptibi lity test by minimum inhibitoryconcentration <= NRG Vancomycin susceptibility test by minimum inhibitory c oncentration 1 NRG Levofloxacin susceptibility test by minimum inhibitory concentration <= NRG Rifampin susceptibility test by minimum inhibitory con centration <= NRG Cefazolin susceptibility test by minimum inhibitory co ncentration <= NRG Linezolid susceptibility test by minimum inhibitory co ncentration 2 NRG Penicillin G susceptibility test by minimum inhibitory concentration > NRG Moxifloxacin susceptibility test by minimum inhibitory concentration <= NRG Minocycline susc UMM <= NRG BMP - 01/25/19 14:06 Anion Gap 14 6-14 BUN 15 mg/dL 5-25 Calcium 9.6 mg/dL 8.3-10.4 Chloride 109 mmol/L 95-114 CO2 23 mEq/L 22-33 Creat 1.07 mg/dL 0.50-1.50 eGFR 61 mL/min/1.73m2 >59 Glucose 84 mg/dL 70-110 Osmo 293 280-295 Potassium 4.3 mmol/L 3.5-5.3 Sodium 142 mmol/L 134-148 MRSA Screen - 01/25/19 14:06 FINAL CULTURE RESULTS MRSA Negative Nasal Culture MEDIA PLATED Setup at 14:18 on 01/25/2019 Test-Serum - 01/27/19 11:27 Preg Test-S Negative Negative Surgical Pathology - 01/27/19 14:20 Surg Path Sent to [facility] Pathology Other Culture - 01/27/19 14:25 PRELIM CULTURE RESULTS No Growth 24 hours FINAL CULTURE RESULTS No Growth 48 hours MEDIA PLATED Setup at 15:38 on 01/27/2019 Anaerobic Culture - 01/27/19 15:08 Anaerobic Culture Note Anaerobic Culture - 01/27/19 15:08 ANAEROBIC CULTURE FINAL REPORT RESULT 1 NO ANAEROBIC GROWTH IN 72 HOURS. Comprehensive metabolic panel - 01/29/19 13:50 Serum or plasma sodium measurement (moles/volume) 137 mmol/L 135-145 Serum or plasma potassium measurement (moles/volume) 3.6 mmol/L 3.6-5.0 Serum or plasma chloride measurement (moles/volume) 98 mmol/L 98-107 Carbon dioxide 23 mmol/L 21-32 Serum or plasma anion gap determination (moles/volume) 16 mmol/L 5-14 Serum or plasma urea nitrogen measurement (mass/volume ) 9 mg/dL 7-18 Serum or plasma creatinine measurement (mass/volume) 0.70 mg/dL 0.60-1.30 Serum or plasma urea nitrogen/creatinine mass ratio 13 NRG Serum or plasma creatinine measurement w ith calculation of estimated glomerular filtration rate > NRG Serum or plasma glucose measurement (mass/volume) 102 mg/dL 70-105 Serum or plasma calcium measurement (mass/volume) 9.3 mg/dL 8.5-10.1 Serum or plasma total bilirubin measurement (mass/volu me) 0.3 mg/dL 0.1-1.0 Serum or plasma alkaline phosphatase maureen surement (enzymatic activity/volume) 54 U/L 40-136 Serum or plasma aspartate aminotransfera se measurement (enzymatic activity/volume) 22 U/L 5-34 Serum or plasma alanine aminotransferase measurement (enzymatic activity/volume) 12 U/L 0-55 Serum or plasma protein measurement (mass/volume) 7.9 g/dL 6.4-8.2 Serum or plasma albumin measurement (mass/volume) 4.7 g/dL 3.2-4.5 Lipase - 01/29/19 13:50 Lipase 19 U/L 8-78 Serum or plasma choriogonadotropin (preg shine test) detection - 01/29/19 13:50 Serum or plasma choriogonadotropin ( test) de tection NEGATIVE NEGATIVE Complete blood count (CBC) with automate d white blood cell (WBC) differential - 01/29/19 13:50 Blood leukocytes automated count (number/volume) 15.3 10*3/uL 4.3-11.0 Blood erythrocytes automated count (number/volume) 4.62 10*6/uL 4.35-5.85 Venous blood hemoglobin measurement (mass/volume) 13.5 g/dL 11.5-16.0 Blood hematocrit (volume fraction) 41 % 35-52 Automated erythrocyte mean corpuscular volume 89 [ foz_us] 80-99 Automated erythrocyte mean corpuscular h emoglobin (mass per erythrocyte) 29 pg 25-34 Automated erythrocyte mean corpuscular h emoglobin concentration measurement (mass/volume) 33 g/dL 32-36 Automated erythrocyte distribution width ratio 13. 0 % 10.0- 14.5 Automated blood platelet count (count/volume) 283 10*3/uL 130-400 Automated blood platelet mean volume measurement 11.3 [foz_us] 7.4-10.4 Automated blood neutrophils/100 leukocytes 87 % 42-75 Automated blood lymphocytes/100 leukocytes 7 % 12-44 Blood monocytes/100 leukocytes 5 % 0-12 Automated blood eosinophils/100 leukocytes 1 % 0-10 Automated blood basophils/100 leukocytes 0 % 0-10 Blood neutrophils automated count (number/volume) 13.3 10*3 1.8-7.8 Blood lymphocytes automated count (number/volume) 1.0 10*3 1.0-4.0 Blood monocytes automated count (number/volume) 0. 8 10*3 0.0-1.0 Automated eosinophil count 0.2 10*3/uL 0 .0-0.3 Automated blood basophil count (count/volume) 0.0 10*3/uL 0.0-0.1 Manual absolute plasma cell count - 01/17 06/04 13:50 Blood monocytes/100 leukocytes 5 % NRG Manual blood segmented neutrophils/100 leukocytes 80 % NRG Blood band neutrophils/100 leukocytes 7 % NRG Manual blood lymphocytes/100 leukocytes 6 % NRG Manual eosinophils/100 leukocytes in nose 2 % NRG Blood erythrocyte morphology finding identification NORMAL NRG Complete urinalysis with reflex to cultu re - 01/29/19 14:45 Urine color determination YELLOW NRG Urine clarity determination CLEAR NR G Urine pH measurement by test strip 7.0 5-9 Specific gravity of urine by test strip 1.015 1.016-1.022 Urine protein assay by test strip, semi-quantitative NEGATIVE NEGATIVE Urine glucose detection by automated test strip NE GATIVE NEGATIVE Erythrocytes detection in urine sediment by light micr oscopy NEGATIVE NEGATIVE Urine ketones detection by automated test strip TR TOMMY NEGATIVE Urine nitrite detection by test strip NEGATIVE NEGATIVE Urine total bilirubin detection by test strip NEGA TIVE NEGATIVE Urine urobilinogen measurement by automated test strip (mass/volume) 0.2 mg/dL < = 1.0 Urine leukocyte esterase detection by dipstick NEG ATIVE NEGATIVE Automated urine sediment erythrocyte cou nt by microscopy (number/high power field) NONE NRG Automated urine sediment leukocyte count by microscopy (number/high power field) NONE NRG Bacteria detection in urine sediment by light microsco py NONE NRG Squamous epithelial cells detection in u rine sediment by light microscopy 0-2 NRG Crystals detection in urine sediment by light microsco py NONE NRG Casts detection in urine sediment by light microscopy NONE NRG Mucus detection in urine sediment by light microscopy NEGATIVE NRG Complete urinalysis with reflex to culture NO NRG Comprehensive Metabolic Panel - 01/31/19 21:36 Albumin 3.9 g/dL 3.6-5.1 ALP 61 U/L 35-130 ALT 12 U/L 6-45 Anion Gap 20 6-14 AST 15 U/L 2-40 BUN 8 mg/dL 5-25 Calcium 9.2 mg/dL 8.3-10.4 Chloride 103 mmol/L 95-114 CO2 14 mEq/L 22-33 Creat 0.77 mg/dL 0.50-1.50 eGFR 90 mL/min/1.73m2 >59 Globulin 3.4 g/dL 2.3-3.5 Glucose 83 mg/dL 70-110 Osmo 273 280-295 Potassium 3.6 mmol/L 3.5-5.3 Sodium 133 mmol/L 134-148 TBil 0.3 mg/dL 0.2-1.2 TP 7.3 g/dL 6.0-8.3 Urinalysis - 01/31/19 22:34 Icotest Negative Negative Urine Volume Urine Volume Sufficient (10mL) Urine Yeast No Yeast present Urine-Appearance Slightly Cloudy Clear Urine-Bacteria Trace Urine-Bilirubin 2+ Negative Urine-Blood Trace-intact Negative Urine-Color Yellow Colorless-[place]t. [place] ow Urine-Epithelial Cells 5-10/HPF Urine-Glucose Negative Negative Urine-Ketones 4+ Negative Urine-Leukocytes Negative Negative Urine-Mucus 1+ Urine-Nitrite Negative Negative Urine-Other Urine Saved if Culture Need ed (48hrs from time of collection) Urine-pH 6.0 5-8.5 Urine-Protein 1+ Negative Urine-RBC 2-5/HPF Urine-Specific [place] >=1.030 1.000-1 .030 Urine-WBC 0-2/HPF Urobilinogen 0.2 0.2-1.0 Complete blood count (CBC) with automate d white blood cell (WBC) differential - 02/15/19 13:45 Blood leukocytes automated count (number/volume) 9.5 10*3/uL 4.3-11.0 Blood erythrocytes automated count (number/volume) 4.37 10*6/uL 4.35-5.85 Venous blood hemoglobin measurement (mass/volume) 12.5 g/dL 11.5-16.0 Blood hematocrit (volume fraction) 38 % 35-52 Automated erythrocyte mean corpuscular volume 86 [ foz_us] 80-99 Automated erythrocyte mean corpuscular h emoglobin (mass per erythrocyte) 29 pg 25-34 Automated erythrocyte mean corpuscular h emoglobin concentration measurement (mass/volume) 33 g/dL 32-36 Automated erythrocyte distribution width ratio 12. 7 % 10.0- 14.5 Automated blood platelet count (count/volume) 395 10*3/uL 130-400 Automated blood platelet mean volume measurement 10.3 [foz_us] 7.4-10.4 Automated blood neutrophils/100 leukocytes 71 % 42-75 Automated blood lymphocytes/100 leukocytes 12 % 12-44 Blood monocytes/100 leukocytes 7 % 0-12 Automated blood eosinophils/100 leukocytes 11 % 0-10 Automated blood basophils/100 leukocytes 0 % 0-10 Blood neutrophils automated count (number/volume) 6.7 10*3 1.8-7.8 Blood lymphocytes automated count (number/volume) 1.1 10*3 1.0-4.0 Blood monocytes automated count (number/volume) 0. 7 10*3 0.0-1.0 Automated eosinophil count 1.0 10*3/uL 0 .0-0.3 Automated blood basophil count (count/volume) 0.0 10*3/uL 0.0-0.1 Serum or plasma choriogonadotropin measu rement (units/volume) - 02/15/19 13:45 Serum or plasma choriogonadotropin measurement (units/ volume) 24 m[iU]/mL <5 Complete urinalysis with reflex to cultu re - 02/17/19 19:56 Urine color determination DARK YELLOW N RG Urine clarity determination CLEAR NR G Urine pH measurement by test strip 6.0 5-9 Specific gravity of urine by test strip >= 1.016-1.022 Urine protein assay by test strip, semi-quantitative NEGATIVE NEGATIVE Urine glucose detection by automated test strip NE GATIVE NEGATIVE Erythrocytes detection in urine sediment by light micr oscopy NEGATIVE NEGATIVE Urine ketones detection by automated test strip NE GATIVE NEGATIVE Urine nitrite detection by test strip NEGATIVE NEGATIVE Urine total bilirubin detection by test strip 1+ NEGATIVE Urine urobilinogen measurement by automated test strip (mass/volume) 0.2 mg/dL < = 1.0 Urine leukocyte esterase detection by dipstick NEG ATIVE NEGATIVE Automated urine sediment erythrocyte cou nt by microscopy (number/high power field) NONE NRG Automated urine sediment leukocyte count by microscopy (number/high power field) NONE NRG Bacteria detection in urine sediment by light microsco py TRACE NRG Squamous epithelial cells detection in u rine sediment by light microscopy 5-10 NRG Crystals detection in urine sediment by light microsco py NONE NRG Casts detection in urine sediment by light microscopy NONE NRG Mucus detection in urine sediment by light microscopy LARGE NRG Complete urinalysis with reflex to culture NO NRG Urine drug screening test - 02/17/19 19: 56 Urine phencyclidine detection by screening method NEGATIVE NEGATIVE Urine benzodiazepines detection by screening method POSITIVE NEGATIVE Urine cocaine detection NEGATIVE NEGATI VE Urine amphetamines detection by screening method N EGATIVE NEGATIVE Urine methamphetamine detection by screening method NEGATIVE NEGATIVE Urine cannabinoids detection by screening method N EGATIVE NEGATIVE Urine opiates detection by screening method NEGATI VE NEGATIVE Urine barbiturates detection NEGATIVE N EGATIVE Screening urine tricyclic antidepressants detection NEGATIVE NEGATIVE Urine methadone detection by screening method NEGA TIVE NEGATIVE Urine oxycodone detection NEGATIVE NEGA TIVE Urine propoxyphene detection NEGATIVE N EGATIVE Complete blood count (CBC) with automate d white blood cell (WBC) differential - 02/17/19 20:30 Blood leukocytes automated count (number/volume) 8.1 10*3/uL 4.3-11.0 Blood erythrocytes automated count (number/volume) 4.32 10*6/uL 4.35-5.85 Venous blood hemoglobin measurement (mass/volume) 12.4 g/dL 11.5-16.0 Blood hematocrit (volume fraction) 38 % 35-52 Automated erythrocyte mean corpuscular volume 87 [ foz_us] 80-99 Automated erythrocyte mean corpuscular h emoglobin (mass per erythrocyte) 29 pg 25-34 Automated erythrocyte mean corpuscular h emoglobin concentration measurement (mass/volume) 33 g/dL 32-36 Automated erythrocyte distribution width ratio 12. 6 % 10.0- 14.5 Automated blood platelet count (count/volume) 420 10*3/uL 130-400 Automated blood platelet mean volume measurement 10.4 [foz_us] 7.4-10.4 Automated blood neutrophils/100 leukocytes 56 % 42-75 Automated blood lymphocytes/100 leukocytes 19 % 12-44 Blood monocytes/100 leukocytes 10 % 0-12 Automated blood eosinophils/100 leukocytes 15 % 0-10 Automated blood basophils/100 leukocytes 0 % 0-10 Blood neutrophils automated count (number/volume) 4.6 10*3 1.8-7.8 Blood lymphocytes automated count (number/volume) 1.6 10*3 1.0-4.0 Blood monocytes automated count (number/volume) 0. 8 10*3 0.0-1.0 Automated eosinophil count 1.2 10*3/uL 0 .0-0.3 Automated blood basophil count (count/volume) 0.0 10*3/uL 0.0-0.1 Serum or plasma choriogonadotropin (preg shine test) detection - 02/17/19 20:30 Serum or plasma choriogonadotropin ( test) de tection POSITIVE NEGATIVE Comprehensive metabolic panel - 02/17/19 20:30 Serum or plasma sodium measurement (moles/volume) 141 mmol/L 135-145 Serum or plasma potassium measurement (moles/volume) 3.6 mmol/L 3.6-5.0 Serum or plasma chloride measurement (moles/volume) 107 mmol/L 98-107 Carbon dioxide 22 mmol/L 21-32 Serum or plasma anion gap determination (moles/volume) 12 mmol/L 5-14 Serum or plasma urea nitrogen measurement (mass/volume ) 9 mg/dL 7-18 Serum or plasma creatinine measurement (mass/volume) 0.76 mg/dL 0.60-1.30 Serum or plasma urea nitrogen/creatinine mass ratio 12 NRG Serum or plasma creatinine measurement w ith calculation of estimated glomerular filtration rate > NRG Serum or plasma glucose measurement (mass/volume) 92 mg/dL 70-105 Serum or plasma calcium measurement (mass/volume) 9.1 mg/dL 8.5-10.1 Serum or plasma total bilirubin measurement (mass/volu me) 0.2 mg/dL 0.1-1.0 Serum or plasma alkaline phosphatase maureen surement (enzymatic activity/volume) 80 U/L 40-136 Serum or plasma aspartate aminotransfera se measurement (enzymatic activity/volume) 10 U/L 5-34 Serum or plasma alanine aminotransferase measurement (enzymatic activity/volume) 15 U/L 0-55 Serum or plasma protein measurement (mass/volume) 7.3 g/dL 6.4-8.2 Serum or plasma albumin measurement (mass/volume) 4.0 g/dL 3.2-4.5 CALCIUM CORRECTED 9.1 mg/dL 8.5-10.1 Serum or plasma choriogonadotropin measu rement (units/volume) - 02/17/19 20:30 Serum or plasma choriogonadotropin measurement (units/ volume) 51 m[iU]/mL <5 Encounters ACCT No. Visit Date/Time Discharge Status Pt. Type Provider Facility Loc./Unit Complaint [id number] 01/31/2019 21:32:00 01/31/2019 23:30: 00 DIS Outpatient Jesus Fatima [facility] ER [id number] 01/27/2019 00:00:00 01/27/2019 16:15: 00 DIS Outpatient Stephanie Massey [id number] 01/25/2019 14:06:00 01/25/2019 23:59: 00 DIS Outpatient Stephanie Massey [id number] 11/25/2018 00:00:00 11/25/2018 16:03: 00 DIS Outpatient Stephanie Massey [id number] 11/19/2018 18:57:00 11/19/2018 23:59: 00 DIS Outpatient Lucinda Garcia [id number] 11/09/2018 09:20:00 11/09/2018 23:59: 00 DIS Outpatient Jesus Fatima 1724 11/22/2018 11:14:06 Document Registration [id number] 11/19/2018 18:57:00 Document Registration [id number] 02/17/2019 19:40:00 21:33:00 DIS Emergency AIMEE VELA [facility] ER ABD PAIN, ABD LUMP [id number] 02/15/2019 11:49:00 15:04:00 DIS Emergency COREY PENDLETON APRN [facility] ER ABD PAIN / SWELLING [id number] 01/29/2019 12:51:00 15:59:00 DIS Outpatient MARY ANN ZIEGLER MD [facility] ER FS VOMITING; ABD PAIN POST SURGERY [id number] 01/24/2019 09:07:00 09:41:00 DIS Emergency SADIE DAWSON DO [facility] ER WOUND INFECTION [id number] 01/11/2019 10:26:00 10:55:00 DIS Emergency COREY PENDLETON APRN [facility] ER POST OP - WOUND INFECTI ON - BELLY BUTTON [id number] 01/01/2019 20:41:00 22:45:00 DIS Outpatient COREY PENDLETON APRN [facility] ER INFECTED BELLY BUTTON - POST OP [id number] 10/21/2018 21:30:00 23:56:00 DIS Emergency DEBBIE RASHEED DO [facility] ER FS LT EAR PAIN, ABD AND CH EST PAIN FROM COUGH [id number] 06/29/2018 15:38:00 16:19:00 DIS Emergency DIONICIO REEVES MD [facility] ER FS POSS ALLERGIC REACTION TO MEDS [id number] 11/03/2014 23:13:00 01:53:00 DIS Emergency LUISITO OMALLEY MD [facility] ER LEFT SIDED PAIN [id number] 10/17/2014 21:44:00 01:00:00 DIS Emergency KEVIN MCCRAY [facility] ER PAIN/BLOOD IN URINE [id number] 10/15/2014 21:31:00 015 22:29:00 DIS Emergency DEBBIE RASHEED DO [facility] ER FATIGUE,DIFFICULTY URIN ATING,BILAT SIDE PAIN [id number] 08/28/2014 22:17:00 015 23:34:00 DIS Emergency KEVIN MCCRAY [facility] ER UTI [id number] 07/15/2014 11:37:00 17:30:00 DIS Out[facility] ANDERS [facility]ISON[facility]NOEMI NEXAL MASS; POSSIBLE ECTOPIC [id number] 07/01/2014 15:28:00 23:59:59 CLS Outpatient ANDERS GARRISON, ESTEPHANIA Taylor [facility] LABNPT Spontaneous abo rtion, complicated by delayed or ex [id number] 06/28/2014 22:13:00 015 23:39:00 DIS Emergency COREY PENDLETON APRN [facility] ER VAG BLEEDING/ABD PAIN 5 WKS PREG [id number] 06/27/2014 20:18:00 015 22:51:00 DIS Emergency COREY PENDLETON APRN [facility] ER VAGINAL BLEEDING [id number] 06/19/2014 19:20:00 015 22:11:00 DIS Emergency KEVIN MCCRAY [facility] ER CRAMPING; 5 WEEKS PREG PATRICIA [id number] 01/17/2014 03:24:00 014 06:08:00 DIS Emergency ANGELA HWANG DO [facility] ER VOMITING,ETOH [id number] 01/14/2014 10:35:00 15:53:00 DIS Inpatient ESTEPHANIA MCNAMARA MD [facility] WS NAUSEA [id number] 01/11/2014 19:04:00 21:10:00 DIS Emergency DIONICIO REEVES MD [facility] ER ABD PAIN [id number] 01/07/2014 09:30:00 16:30:00 DIS Outpatient ESTEPHANIA MCNAMARA MD [facility] CHRONIC PELVIC PAIN [id number] 01/05/2014 09:47:00 23:59:59 CLS Outpatient ESTEPHANIA MCNAMARA MD [facility] PREOP CHRONIC PELVIC PAIN [id number] 10/17/2013 13:10:00 16:05:00 DIS Emergency KEVIN MCCRAY [facility] ER VOMITING [id number] 05/14/2013 00:00:00 14:30:00 DIS Inpatient STEPHANIE MASSEY MD [facility] SURGICAL INTRACTABLE VOMITING ABD PAIN,UTI [id number] 05/12/2013 10:13:00 13:06:00 DIS Emergency ANGELA HWANG DO [facility] ER ABD PAIN/VOMITING [id number] 05/08/2013 11:17:00 23:59:59 CLS Outpatient STEPHANIE MASSEY MD [facility] GALLSTONES [id number] 05/07/2013 14:58:00 23:59:59 CLS Outpatient STEPHANIE MASSEY MD [facility] PREOP GALLSTONES [id number] 05/04/2013 18:35:00 22:06:00 DIS Emergency KEVIN MCCRAY [facility] ER ABDOMINAL PAINS [id number] 05/03/2013 10:25:00 13:50:00 DIS Emergency KEVIN MCCRAY [facility] ER VOMITING BACK PAIN [id number] 03/29/2013 15:06:00 22:55:00 DIS Emergency KEVIN MCCRAY [facility] ER WEAKNESS [id number] 09/19/2012 11:40:00 013 13:29:00 DIS Emergency AKANKSHA GARRISON, MARILIA [facility] [id number] 05/23/2014 06:12:00 Document Registration [id number] 07/04/2012 07:47:00 Document Registration [id number] 07/01/2012 10:25:00 Document Registration [id number] 04/21/2012 22:38:00 Document Registration [id number] 04/21/2012 12:25:00 Document Registration [id number] 03/22/2010 02:54:00 Document Registration [id number] 01/30/2010 01:43:00 Document Registration [id number] 12/02/2009 01:17:00 Document Registration [id number] 11/29/2009 00:35:00 Document Registration [id number] 10/10/2009 19:30:00 Document Registration [id number] 09/25/2009 06:00:00 Document Registration [id number] 02/03/2019 09:08:00 Document Registration
== END 2019-02-15 15:04 | disposition home or self-care (01) ==
LOC: EDUNIT# 11:47 → ER 11:49
DX: L76.34 Postprocedural seroma of skin and subcutaneous tissue following other procedure (principal); F41.9 Anxiety disorder, unspecified; F32.9 Major depressive disorder, single episode, unspecified; Z88.1 Allergy status to other antibiotic agents; Z98.890 Other specified postprocedural states; Z77.22 Contact with and (suspected) exposure to environmental tobacco smoke (acute) (chronic); Z90.89 Acquired absence of other organs; Z90.49 Acquired absence of other specified parts of digestive tract; Z87.440 Personal history of urinary (tract) infections; Z32.01 Encounter for pregnancy test, result positive
CPT/HCPCS: 36415; 84702; 84703; 85025; 99282

== ENCOUNTER 2019-02-17 19:39 | Emergency (ER) | payer MEDICAID ==
[~2019-02-17] VITALS: Ht 147.3 cm; Wt 56.8 kg
[2019-02-17 20:15] LABS: BILIRUBIN,URINE 1+ (NEGATIVE); CLARITY,URINE CLEAR; COLOR,URINE DARK YELLOW; GLUCOSE, URINE (UA) NEGATIVE (NEGATIVE); KETONES,URINE NEGATIVE (NEGATIVE); LEUKOCYTE ESTERASE ,URINE NEGATIVE (NEGATIVE); NITRITE,URINE NEGATIVE (NEGATIVE); PROTEIN,URINE NEGATIVE (NEGATIVE)
[2019-02-17] MEDS ORDERED: NS IV 1000 ML 1,000 ML IV SCH (20:21)
[2019-02-17 20:26] LABS: BACTERIA,URINE TRACE /HPF
[2019-02-17] MEDS ORDERED: ONDANSETRON 4 MG/2 ML (SDV) Z0FRAN IVP ONE (20:30)
--- NOTE | 2019-02-17 20:31 | ED GI ---
General Chief Complaint: Abdominal/GI Problems Stated Complaint: ABD PAIN, ABD LUMP Nursing Triage Note: Pt amb to triage with c/o abd discomfort, decreased appetite, and nausea. Pt reports to have been seen in this ED on 02/15/19 where she was diagnosed with an abd seroma. Pt reports increase in size and pain. Pt reports to be between 3-4wks . Sepsis Screen: No Definite Risk History of Present Illness Date Seen by Provider: Feb 17, 2019 Time Seen by Provider: 20:15 Initial Comments 28 year old female returns after evaluation here on 02/15/19 for the same abdominal complaints. The patient does not report that her stomach pain is worse but it is continuing. She is made an appointment with Dr. Massey but cannot be seen until later this week. She's had no fevers, she's been taking Tylenol 650 mg every 6-8 hours. She reports mild nausea but no vomiting. She's had limited by mouth intake today. Timing/Duration: Intermittent Location: Periumbilical Associated Symptoms: No Fever/Chills, No Heartburn; Nausea/Vomiting; No Rash; Swelling/Mass in Abdomen Allergies and Home Medications Allergies Coded Allergies: clindamycin (Verified Allergy, Intermediate, oral blisters, SOB, 01/01/19) Home Medications Levofloxacin 500 Mg Tablet, 500 MG PO DAILY Prescribed by: MARY ANN ZIEGLER on 01/29/19 1550 Ondansetron 4 Mg Tab.rapdis, 4 MG PO Q8H Prescribed by: MARY ANN ZIEGLER on 01/29/19 1550 Oxycodone HCl/Acetaminophen 1 Each Tablet, 1 TAB PO Q6H Prescribed by: MARY ANN ZIEGLER on 01/29/19 1550 Polyethylene Glycol 3350 17 Gm Powd.pack, 17 GM PO BID Prescribed by: MARY ANN ZIEGLER on 01/29/19 1550 Sennosides 8.6 Mg Tablet, 17.2 MG PO HS Prescribed by: MARY ANN ZIEGLER on 01/29/19 1550 Patient Home Medication List Home Medication List Reviewed: Yes Review of Systems Review of Systems Constitutional: no symptoms reported, see HPI Gastrointestinal: See HPI, Abdomen Distended, Abdominal Pain, Nausea, Poor Appetite All Other Systems Reviewed Negative Unless Noted: Yes Past Wjybulo-Egvdvn-Hmwrev Hx Past Med/Social Hx: Reviewed Nursing Past Med/Soc Hx Patient Social History Alcohol Use: Denies Use Recreational Drug Use: No Smoking Status: Former Smoker Type Used: Cigarettes Former Smoker, Quit: Feb 16, 2019 2nd Hand Smoke Exposure: Yes Recent Foreign Travel: No Contact w/Someone Who Travel: No Recent Infectious Disease Expo: No Recent Hopitalizations: No Physical Abuse: No Sexual Abuse: No Mistreated: No Fear: No Immunizations Up To Date Tetanus Booster (TDap): More than 5yrs PED Vaccines UTD: Yes Date of Influenza Vaccine: Dec 17, 2012 Seasonal Allergies Seasonal Allergies: No Past Medical History Surgeries: Yes (Umbilical herniorrhaphy 07/04/12,D&C, ENDOMETRIOSIS SCRAPING, d&c, Mesh Tommy) Abdominal, Adenoidectomy, Appendectomy, Gallbladder, Tonsillectomy Respiratory: No Cardiac: No Neurological: No : Yes Last Menstrual Period: Jan 20, 2019 Hx : 3 Hx Para: 1 Hx Total # of Abortions (Sp): 1 Reproductive Disorders: Yes (CPP) Female Reproductive Disorders: Endometriosis, Ovarian Cyst Sexually Transmitted Disease: No HIV/AIDS: No Genitourinary: Yes Kidney Infection, UTI-Chronic Gastrointestinal: No (umbilical hernia removed 11/25/18) Abdominal Hernia, Gall Bladder Disease Musculoskeletal: No Chronic Back Pain Endocrine: No HEENT: No Cancer: No Psychosocial: Yes Anxiety, Depression Integumentary: No Blood Disorders: No Adverse Reaction/Blood Tranf: No Family Medical History No Pertinent Family Hx Physical Exam Vital Signs Vital Signs - First Documented 02/17/19 19:44 Temp 36.8 Pulse 84 Resp 17 B/P (MAP) 117/79 (92) Pulse Ox 100 O2 Delivery Room Air Capillary Refill : Less Than 3 Seconds Height/Weight/BMI Height: 4'10.00" Weight: 125lbs. 0oz. 56.367873ze; 26.00 BMI Method:Stated General Appearance: WD/WN, no apparent distress Respiratory: chest non-tender, lungs clear, normal breath sounds Cardiovascular: normal peripheral pulses, regular rate, rhythm Gastrointestinal: normal bowel sounds, soft; No guarding, No rebound; tenderness (Pre-umbilical), mass (superior to umbilicus, TTP, no erythema, trace fluctuance, no active drainage. ) Neurologic/Psychiatric: no motor/sensory deficits, alert, normal mood/affect, oriented x 3 Skin: normal color, warm/dry Lymphatic: no adenopathy Progress/Results/Core Measures Results/Orders Lab Results Laboratory Tests Test 02/17/19 19:56 02/17/19 20:30 Range/Units Urine Color DARK YELLOW Urine Clarity CLEAR Urine pH 6.0 5-9 Urine Specific [place] >=1.030 1.016-1.022 Urine Protein NEGATIVE NEGATIVE Urine Glucose (UA) NEGATIVE NEGATIVE Urine Ketones NEGATIVE NEGATIVE Urine Nitrite NEGATIVE NEGATIVE Urine Bilirubin 1+ H NEGATIVE Urine Urobilinogen 0.2 < = 1.0 MG/DL Urine Leukocyte Esterase NEGATIVE NEGATIVE Urine RBC (Auto) NEGATIVE NEGATIVE Urine RBC NONE /HPF Urine WBC NONE /HPF Urine Squamous Epithelial Cells 5-10 /HPF Urine Crystals NONE /LPF Urine Bacteria TRACE /HPF Urine Casts NONE /LPF Urine Mucus LARGE H /LPF Urine Culture Indicated NO Urine Opiates Screen NEGATIVE NEGATIVE Urine Oxycodone Screen NEGATIVE NEGATIVE Urine Methadone Screen NEGATIVE NEGATIVE Urine Propoxyphene Screen NEGATIVE NEGATIVE Urine Barbiturates Screen NEGATIVE NEGATIVE Ur Tricyclic Antidepressants Screen NEGATIVE NEGATIVE Urine Phencyclidine Screen NEGATIVE NEGATIVE Urine Amphetamines Screen NEGATIVE NEGATIVE Urine Methamphetamines Screen NEGATIVE NEGATIVE Urine Benzodiazepines Screen POSITIVE H NEGATIVE Urine Cocaine Screen NEGATIVE NEGATIVE Urine Cannabinoids Screen NEGATIVE NEGATIVE White Blood Count 8.1 4.3-11.0 10^3/uL Red Blood Count 4.32 L 4.35-5.85 10^6/uL Hemoglobin 12.4 11.5-16.0 G/DL Hematocrit 38 35-52 % Mean Corpuscular Volume 87 80-99 FL Mean Corpuscular Hemoglobin 29 25-34 PG Mean Corpuscular Hemoglobin Concent 33 32-36 G/DL Red Cell Distribution Width 12.6 10.0-14.5 % Platelet Count 420 H 130-400 10^3/uL Mean Platelet Volume 10.4 7.4-10.4 FL Neutrophils (%) (Auto) 56 42-75 % Lymphocytes (%) (Auto) 19 12-44 % Monocytes (%) (Auto) 10 0-12 % Eosinophils (%) (Auto) 15 H 0-10 % Basophils (%) (Auto) 0 0-10 % Neutrophils # (Auto) 4.6 1.8-7.8 X 10^3 Lymphocytes # (Auto) 1.6 1.0-4.0 X 10^3 Monocytes # (Auto) 0.8 0.0-1.0 X 10^3 Eosinophils # (Auto) 1.2 H 0.0-0.3 10^3/uL Basophils # (Auto) 0.0 0.0-0.1 10^3/uL Sodium Level 141 135-145 MMOL/L Potassium Level 3.6 3.6-5.0 MMOL/L Chloride Level 107 98-107 MMOL/L Carbon Dioxide Level 22 21-32 MMOL/L Anion Gap 12 5-14 MMOL/L Blood Urea Nitrogen 9 7-18 MG/DL Creatinine 0.76 0.60-1.30 MG/DL Estimat Glomerular Filtration Rate > 60 BUN/Creatinine Ratio 12 Glucose Level 92 70-105 MG/DL Calcium Level 9.1 8.5-10.1 MG/DL Corrected Calcium 9.1 8.5-10.1 MG/DL Total Bilirubin 0.2 0.1-1.0 MG/DL Aspartate Amino Transf (AST/SGOT) 10 5-34 U/L Alanine Aminotransferase (ALT/SGPT) 15 0-55 U/L Alkaline Phosphatase 80 40-136 U/L Total Protein 7.3 6.4-8.2 GM/DL Albumin 4.0 3.2-4.5 GM/DL Human Chorionic Gonadotropin, Quant 51 H <5 MIU/ML Serum Test, Qualitative POSITIVE NEGATIVE My Orders Orders - AIMEE VELA Ua Culture If Indicated (02/17/19 19:47) Urine Bedside (02/17/19 19:47) Cbc With Automated Diff (02/17/19 20:21) Comprehensive Metabolic Panel (02/17/19 20:21) Drug Screen Stat (Urine) (02/17/19 20:21) Ed Iv/Invasive Line Start (02/17/19 20:21) Ns Iv 1000 Ml (Sodium Chloride 0.9%) (02/17/19 20:21) Hcg,Qualitative Serum (02/17/19 20:21) Hcg,Quantitative (02/17/19 20:21) Ondansetron Injection (Zofran Injectio (02/17/19 20:30) Rx-Ondansetron Po (Rx-Zofran Po) (02/17/19 21:22) Medications Given in ED Current Medications Medications Dose Ordered Sig/Damion Route Start Time Stop Time Status Last Admin Dose Admin Ondansetron HCl 4 mg ONCE ONCE IVP 02/17/19 20:30 02/17/19 20:31 DC 02/17/19 20:33 4 MG Vital Signs/I&O 02/17/19 02/17/19 19:44 21:34 Temp 36.8 36.7 Pulse 84 70 Resp 17 14 B/P (MAP) 117/79 (92) 95/68 Pulse Ox 100 100 O2 Delivery Room Air Room Air Blood Pressure Mean: 92 POS Progress Progress Note : Time: 20:15 Progress Note Patient seen and evaluated, her urine hCG is negative today however it was positive on 02/15/19. Will obtain labs and determine if there is any need for diagnostic imaging. Will give normal saline 1 L IV and Zofran 4 mg IV. 2104 serum hCG is positive, awaiting quantitative. No elevation in her white blood cell count. Findings were discussed with the patient. 2114 quantitative hCG has increased to 51 from 3 days ago. Discussed the patient may have nausea related to the and not from the seroma. Discharge instructions and return precautions reviewed with the patient. All questions answered. Departure Impression Primary Impression: Abdominal wall seroma Qualified Codes: S30.1XXD - Contusion of abdominal wall, subsequent encounter Disposition: HOME, SELF-CARE Condition: Improved Departure-Patient Inst. Decision time for Depature: 21:15 Referrals: STEPHANIE MASSEY MD NO,LOCAL PHYSICIAN (PCP) Primary Care Physician Patient Instructions: Acute Abdomen (Belly Pain), Adult (DC) Add. Discharge Instructions: Begin taking a vitamin daily. Increase water intake. Use Zofran every 6-8 hours for nausea. Keep your appt with Dr. Massey for later this week, if symptoms worsen call his office. Tylenol 650 mg every 6-8 hours for pain. Warm, moist compresses to abdomen. Return to the emergency department for temperature over 101 not relieved by Tylenol, increased redness to the abdominal wall, or new urgent health care nee ds. All discharge instructions reviewed with patient and/or family. Voiced understanding. Copy Copies To 1: STEPHANIE MASSEY MD Copies To 2: JOBY MEEKS AMY ARNP Feb 17, 2019 20:31 POS
[2019-02-17 20:41] LABS: BASOPHILS % (AUTO) 0 % (0-10); EOSINOPHILS # (AUTO) 1.2 10^3/uL (0.0-0.3); EOSINOPHILS % (AUTO) 15 % (0-10); HEMATOCRIT 38 % (35-52); HEMOGLOBIN 12.4 G/DL (11.5-16.0); LYMPHOCYTES # (AUTO) 1.6 X 10^3 (1.0-4.0); LYMPHOCYTES % (AUTO) 19 % (12-44); MEAN CORPUSCULAR HEMOGLOBIN 29 PG (25-34); MEAN CORPUSCULAR HGB CONC 33 G/DL (32-36); MEAN CORPUSCULAR VOLUME 87 FL (80-99); MEAN PLATELET VOLUME 10.4 FL (7.4-10.4); MONOCYTES # (AUTO) 0.8 X 10^3 (0.0-1.0); MONOCYTES % (AUTO) 10 % (0-12); NEUTROPHILS # (AUTO) 4.6 X 10^3 (1.8-7.8); NEUTROPHILS % (AUTO) 56 % (42-75); PLATELET COUNT 420 10^3/uL (130-400); RED CELL DISTRIBUTION WIDTH 12.6 % (10.0-14.5); WHITE BLOOD COUNT 8.1 10^3/uL (4.3-11.0)
[2019-02-17 20:57] LABS: AMPHETAMINE SCREEN, URINE NEGATIVE (NEGATIVE); BARBITURATE SCREEN URINE NEGATIVE (NEGATIVE); BENZODIAZEPINES SCREEN URINE POSITIVE (NEGATIVE); CANNABINOID SCREEN, URINE NEGATIVE (NEGATIVE); COCAINE SCREEN URINE NEGATIVE (NEGATIVE); METHADONE STAT NEGATIVE (NEGATIVE); METHAMPHETAMINE SCREEN URINE S NEGATIVE (NEGATIVE); OPIATE SCREEN URINE NEGATIVE (NEGATIVE); OXYCODONE STAT NEGATIVE (NEGATIVE); PROPOXYPHENE STAT NEGATIVE (NEGATIVE); TRICYCLIC ANTIDEPRESSANTS SCRE NEGATIVE (NEGATIVE)
[2019-02-17 21:04] LABS: ALANINE AMINOTRANSFERASE 15 U/L (0-55); ALKALINE PHOSPHATASE 80 U/L (40-136); BILIRUBIN,TOTAL 0.2 MG/DL (0.1-1.0); BUN/CREATININE RATIO 12; CALCIUM 9.1 MG/DL (8.5-10.1); CARBON DIOXIDE 22 MMOL/L (21-32); CHLORIDE 107 MMOL/L (98-107); CREATININE SERUM 0.76 MG/DL (0.60-1.30); GFR ESTIMATED > 60; GLUCOSE 92 MG/DL (70-105); POTASSIUM 3.6 MMOL/L (3.6-5.0); SODIUM 141 MMOL/L (135-145); TOTAL PROTEIN 7.3 GM/DL (6.4-8.2)
[2019-02-17] MEDS ORDERED: RX-ONDANSETRON 4 MG ODT (ZOFRAN) PPK #4 PO STA (21:22)
[2019-02-17 21:34] VITALS: BP 95/68
== END 2019-02-17 21:33 | disposition home or self-care (01) ==
LOC: EDUNIT# 19:39 → ER 19:40
DX: O9A.211 Injury, poisoning and certain other consequences of external causes complicating pregnancy, first trimester (principal); S30.1XXD Contusion of abdominal wall, subsequent encounter; O99.341 Other mental disorders complicating pregnancy, first trimester; F41.9 Anxiety disorder, unspecified; F32.9 Major depressive disorder, single episode, unspecified; Z3A.01 Less than 8 weeks gestation of pregnancy; Z88.1 Allergy status to other antibiotic agents; Z87.891 Personal history of nicotine dependence; Z77.22 Contact with and (suspected) exposure to environmental tobacco smoke (acute) (chronic); Z90.89 Acquired absence of other organs; Z90.49 Acquired absence of other specified parts of digestive tract; Z87.440 Personal history of urinary (tract) infections; Z98.890 Other specified postprocedural states; X58.XXXD Exposure to other specified factors, subsequent encounter
CPT/HCPCS: 36415; 80053; 80306; 81000; 84702; 84703; 85025; 96361; 96374

== ENCOUNTER 2019-03-23 13:39 | Observation (INO) | payer MEDICAID ==
[~2019-03-23] VITALS: Ht 149.3 cm; Wt 55.0 kg
[2019-03-23] MEDS ORDERED: NS IV 1000 ML 1,000 ML IV SCH ×2 (14:45→16:00)
[2019-03-23] MEDS ORDERED: ONDANSETRON 4 MG/2 ML (SDV) Z0FRAN IVP ONE (14:45)
[2019-03-23 15:54] LABS: HEMATOCRIT 40 % (35-52); HEMOGLOBIN 13.3 G/DL (11.5-16.0); MEAN CORPUSCULAR HEMOGLOBIN 29 PG (25-34); MEAN CORPUSCULAR HGB CONC 34 G/DL (32-36); MEAN CORPUSCULAR VOLUME 86 FL (80-99); MEAN PLATELET VOLUME 11.1 FL (7.4-10.4); PLATELET COUNT 385 10^3/uL (130-400); WHITE BLOOD COUNT 15.9 10^3/uL (4.3-11.0)
[2019-03-23 15:55] LABS: BASOPHILS % (AUTO) 0 % (0-10); EOSINOPHILS % (AUTO) 0 % (0-10); LYMPHOCYTES # (AUTO) 1.1 X 10^3 (1.0-4.0); LYMPHOCYTES % (AUTO) 7 % (12-44); MONOCYTES # (AUTO) 0.6 X 10^3 (0.0-1.0); MONOCYTES % (AUTO) 4 % (0-12); NEUTROPHILS # (AUTO) 14.2 X 10^3 (1.8-7.8); NEUTROPHILS % (AUTO) 89 % (42-75)
[2019-03-23] MEDS ORDERED: PROMETHAZINE INJ 25 MG/ML (PHENERGAN) AMP IVP ONE (16:00)
[2019-03-23 16:08] LABS: CHLORIDE 103 MMOL/L (98-107); POTASSIUM 3.7 MMOL/L (3.6-5.0); SODIUM 138 MMOL/L (135-145)
[2019-03-23 16:09] LABS: ALANINE AMINOTRANSFERASE 8 U/L (0-55); ALKALINE PHOSPHATASE 57 U/L (40-136); BILIRUBIN,TOTAL 0.2 MG/DL (0.1-1.0); BUN/CREATININE RATIO 13; CALCIUM 9.5 MG/DL (8.5-10.1); CARBON DIOXIDE 20 MMOL/L (21-32); CREATININE SERUM 0.63 MG/DL (0.60-1.30); GFR ESTIMATED > 60; GLUCOSE 101 MG/DL (70-105); TOTAL PROTEIN 7.7 GM/DL (6.4-8.2)
[2019-03-23 16:10] LABS: ALBUMIN 4.3 GM/DL (3.2-4.5)
--- NOTE | 2019-03-23 16:17 | ED GI ---
General Chief Complaint: Abdominal/GI Problems Stated Complaint: N,V Nursing Triage Note: Pt presents to ED reporting unable to eat for about a week and started vomiting today. Pt is 8 weeks . G-4, P-2, AB-1 Sepsis Screen: No Definite Risk History of Present Illness Date Seen by Provider: Mar 23, 2019 Time Seen by Provider: 16:09 Initial Comments 28 yo SAB1 blood type A+ has been seen numerous times in last 3 months had umbilical hernia repair with mesh then mesh got infected, was removed then developed seroma which drained externally then discovered to be thought to be about 8 weeks currently pt tells me she hasn't been able to eat /keep food down for 2 days says repeated vomiting >10 today and diarrhea x3 today had presyncopal symptoms upon standing at one point denies fever chills denies urnary sx's denies vag bleeding but says she had some spotting last week does have pelvic pain Allergies and Home Medications Allergies Coded Allergies: clindamycin (Verified Allergy, Intermediate, oral blisters, SOB, 01/01/19) Home Medications Levofloxacin 500 Mg Tablet, 500 MG PO DAILY Prescribed by: MARY ANN ZIEGLER on 01/29/19 1550 Ondansetron 4 Mg Tab.rapdis, 4 MG PO Q8H Prescribed by: MARY ANN ZIEGLER on 01/29/19 1550 Oxycodone HCl/Acetaminophen 1 Each Tablet, 1 TAB PO Q6H Prescribed by: MARY ANN ZIEGLER on 01/29/19 1550 Polyethylene Glycol 3350 17 Gm Powd.pack, 17 GM PO BID Prescribed by: MARY ANN ZIEGLER on 01/29/19 1550 Sennosides 8.6 Mg Tablet, 17.2 MG PO HS Prescribed by: MARY ANN ZIEGLER on 01/29/19 1550 Patient Home Medication List Home Medication List Reviewed: Yes Review of Systems Review of Systems Constitutional: dizziness; No fever EENTM: No Symptoms Reported Respiratory: No Symptoms Reported Cardiovascular: No Symptoms Reported Gastrointestinal: Abdominal Pain, Diarrhea, Vomiting Genitourinary: No Symptoms Reported Musculoskeletal: no symptoms reported Past Ruokbud-Hqxqqs-Wgiaet Hx Patient Social History Alcohol Use: Denies Use Recreational Drug Use: No Smoking Status: Former Smoker Type Used: Cigarettes Former Smoker, Quit: Feb 16, 2019 2nd Hand Smoke Exposure: Yes Recent Foreign Travel: No Contact w/Someone Who Travel: No Recent Infectious Disease Expo: No Recent Hopitalizations: No Physical Abuse: No Sexual Abuse: No Mistreated: No Fear: No Immunizations Up To Date Tetanus Booster (TDap): More than 5yrs PED Vaccines UTD: Yes Date of Influenza Vaccine: Dec 17, 2012 Seasonal Allergies Seasonal Allergies: No Past Medical History Surgeries: Yes (Umbilical herniorrhaphy 07/04/12,D&C, ENDOMETRIOSIS SCRAPING, d&c, Mesh Tommy) Abdominal, Adenoidectomy, Appendectomy, Gallbladder, Tonsillectomy Respiratory: No Cardiac: No Neurological: No Reproductive Disorders: Yes (CPP) Female Reproductive Disorders: Endometriosis, Ovarian Cyst Sexually Transmitted Disease: No HIV/AIDS: No Genitourinary: Yes Kidney Infection, UTI-Chronic Gastrointestinal: No (umbilical hernia removed 11/25/18) Abdominal Hernia, Gall Bladder Disease Musculoskeletal: No Chronic Back Pain Endocrine: No HEENT: No Cancer: No Psychosocial: Yes Anxiety, Depression Integumentary: No Blood Disorders: No Adverse Reaction/Blood Tranf: No Family Medical History No Pertinent Family Hx Physical Exam Vital Signs Vital Signs - First Documented 03/23/19 14:12 Temp 36.7 Pulse 112 Resp 16 B/P (MAP) 116/76 (89) Pulse Ox 99 O2 Delivery Room Air Capillary Refill : Less Than 3 Seconds Height/Weight/BMI Height: 4'10.00" Weight: 125lbs. 0oz. 56.153592tm; 24.00 BMI Method:Stated General Appearance: mild distress HEENT: PERRL/EOMI, pharynx normal, other (mucosa dry) Neck: non-tender Respiratory: lungs clear, normal breath sounds Cardiovascular: regular rate, rhythm Gastrointestinal: soft, other (mild diffuse tenderness no peritoneal signs mild uterine/pelvic tenderness healed tre umbilical incision) Progress/Results/Core Measures Results/Orders Lab Results Laboratory Tests Test 03/23/19 14:50 03/23/19 16:05 Range/Units White Blood Count 15.9 H 4.3-11.0 10^3/uL Red Blood Count 4.58 4.35-5.85 10^6/uL Hemoglobin 13.3 11.5-16.0 G/DL Hematocrit 40 35-52 % Mean Corpuscular Volume 86 80-99 FL Mean Corpuscular Hemoglobin 29 25-34 PG Mean Corpuscular Hemoglobin Concent 34 32-36 G/DL Red Cell Distribution Width 13.0 10.0-14.5 % Platelet Count 385 130-400 10^3/uL Mean Platelet Volume 11.1 H 7.4-10.4 FL Neutrophils (%) (Auto) 89 H 42-75 % Lymphocytes (%) (Auto) 7 L 12-44 % Monocytes (%) (Auto) 4 0-12 % Eosinophils (%) (Auto) 0 0-10 % Basophils (%) (Auto) 0 0-10 % Neutrophils # (Auto) 14.2 H 1.8-7.8 X 10^3 Lymphocytes # (Auto) 1.1 1.0-4.0 X 10^3 Monocytes # (Auto) 0.6 0.0-1.0 X 10^3 Eosinophils # (Auto) 0.0 0.0-0.3 10^3/uL Basophils # (Auto) 0.0 0.0-0.1 10^3/uL Neutrophils % (Manual) 82 % Lymphocytes % (Manual) 11 % Monocytes % (Manual) 3 % Eosinophils % (Manual) 0 % Basophils % (Manual) 0 % Metamyelocytes % 1 % Band Neutrophils 3 % Sodium Level 138 135-145 MMOL/L Potassium Level 3.7 3.6-5.0 MMOL/L Chloride Level 103 98-107 MMOL/L Carbon Dioxide Level 20 L 21-32 MMOL/L Anion Gap 15 H 5-14 MMOL/L Blood Urea Nitrogen 8 7-18 MG/DL Creatinine 0.63 0.60-1.30 MG/DL Estimat Glomerular Filtration Rate > 60 BUN/Creatinine Ratio 13 Glucose Level 101 70-105 MG/DL Calcium Level 9.5 8.5-10.1 MG/DL Corrected Calcium 9.3 8.5-10.1 MG/DL Total Bilirubin 0.2 0.1-1.0 MG/DL Aspartate Amino Transf (AST/SGOT) 12 5-34 U/L Alanine Aminotransferase (ALT/SGPT) 8 0-55 U/L Alkaline Phosphatase 57 40-136 U/L Total Protein 7.7 6.4-8.2 GM/DL Albumin 4.3 3.2-4.5 GM/DL Human Chorionic Gonadotropin, Quant 419842 H <5 MIU/ML Urine Color YELLOW Urine Clarity SLT CLOUDY Urine pH 6.0 5-9 Urine Specific Murray 1.025 H 1.016-1.022 Urine Protein NEGATIVE NEGATIVE Urine Glucose (UA) NEGATIVE NEGATIVE Urine Ketones 3+ H NEGATIVE Urine Nitrite NEGATIVE NEGATIVE Urine Bilirubin NEGATIVE NEGATIVE Urine Urobilinogen 0.2 < = 1.0 MG/DL Urine Leukocyte Esterase TRACE H NEGATIVE Urine RBC (Auto) NEGATIVE NEGATIVE Urine RBC NONE /HPF Urine WBC 2-5 /HPF Urine Squamous Epithelial Cells 2-5 /HPF Urine Crystals NONE /LPF Urine Bacteria FEW H /HPF Urine Casts NONE /LPF Urine Mucus SMALL H /LPF Urine Culture Indicated YES Urine Opiates Screen NEGATIVE NEGATIVE Urine Oxycodone Screen NEGATIVE NEGATIVE Urine Methadone Screen NEGATIVE NEGATIVE Urine Propoxyphene Screen NEGATIVE NEGATIVE Urine Barbiturates Screen NEGATIVE NEGATIVE Ur Tricyclic Antidepressants Screen NEGATIVE NEGATIVE Urine Phencyclidine Screen NEGATIVE NEGATIVE Urine Amphetamines Screen NEGATIVE NEGATIVE Urine Methamphetamines Screen NEGATIVE NEGATIVE Urine Benzodiazepines Screen NEGATIVE NEGATIVE Urine Cocaine Screen NEGATIVE NEGATIVE Urine Cannabinoids Screen NEGATIVE NEGATIVE My Orders Orders - MINI MARCELINO MD Urinalysis (03/23/19 14:26) Urine Bedside (03/23/19 14:26) Iv Heplock-Insert (Order) (03/23/19 14:43) Ns Iv 1000 Ml (Sodium Chloride 0.9%) (03/23/19 14:45) Ondansetron Injection (Zofran Injectio (03/23/19 14:45) Cbc With Automated Diff (03/23/19 15:35) Comprehensive Metabolic Panel (03/23/19 15:35) Hcg,Quantitative (03/23/19 15:49) Mother's Blood Type & Rh (Baby (03/23/19 15:49) Manual Differential (03/23/19 14:50) Ns Iv 1000 Ml (Sodium Chloride 0.9%) (03/23/19 16:00) Promethazine Injection (Phenergan Injec (03/23/19 16:00) Drug Screen Stat (Urine) (03/23/19 15:57) Urine Culture (03/23/19 16:05) Medications Given in ED Current Medications Medications Dose Ordered Sig/Damion Route Start Time Stop Time Status Last Admin Dose Admin Ondansetron HCl 4 mg ONCE ONCE IVP 03/23/19 14:45 03/23/19 14:46 DC 03/23/19 14:58 4 MG Promethazine HCl 25 mg ONCE ONCE IVP 03/23/19 16:00 03/23/19 16:01 DC 03/23/19 16:11 25 MG Vital Signs/I&O 03/23/19 14:12 Temp 36.7 Pulse 112 Resp 16 B/P (MAP) 116/76 (89) Pulse Ox 99 O2 Delivery Room Air Blood Pressure Mean: 89 Progress Progress Note : Progress Note several attempts to reach pt's Ob provider not successful discussed with Dr. Reeder will admit obs hyperemesis gravidarum Departure Communication (Admissions) Time/Spoke to Admitting Phy: 17:[address] Reeder agrees to admit obs Impression Primary Impression: Hyperemesis gravidarum Disposition: ADMITTED INPATIENT Condition: Improved Admissions Decision to Admit Reason: Admit from ER (General) Decision to Admit/Date: Mar 23, 2019 Time/Decision to Admit Time: 18:17 Departure-Patient Inst. Referrals: NO,LOCAL PHYSICIAN (PCP/Family) Primary Care Physician MINI MARCELINO MD Mar 23, 2019 16:16
[2019-03-23 16:44] LABS: BAND NEUTROPHILS 3 %; BASOPHILS % (MANUAL) 0 %; EOSINOPHILS % (MANUAL) 0 %; LYMPHOCYTES % (MANUAL) 11 %; METAMYELOCYTES % 1 %; MONOCYTES % (MANUAL) 3 %; NEUTROPHILS % (MANUAL) 82 %
[2019-03-23 17:11] LABS: BILIRUBIN,URINE NEGATIVE (NEGATIVE); CLARITY,URINE SLT CLOUDY; COLOR,URINE YELLOW; GLUCOSE, URINE (UA) NEGATIVE (NEGATIVE); KETONES,URINE 3+ (NEGATIVE); LEUKOCYTE ESTERASE ,URINE TRACE (NEGATIVE); NITRITE,URINE NEGATIVE (NEGATIVE); PROTEIN,URINE NEGATIVE (NEGATIVE)
[2019-03-23 17:12] LABS: BACTERIA,URINE FEW /HPF
[2019-03-23 17:13] LABS: AMPHETAMINE SCREEN, URINE NEGATIVE (NEGATIVE); BARBITURATE SCREEN URINE NEGATIVE (NEGATIVE); BENZODIAZEPINES SCREEN URINE NEGATIVE (NEGATIVE); CANNABINOID SCREEN, URINE NEGATIVE (NEGATIVE); COCAINE SCREEN URINE NEGATIVE (NEGATIVE); METHADONE STAT NEGATIVE (NEGATIVE); METHAMPHETAMINE SCREEN URINE S NEGATIVE (NEGATIVE); OPIATE SCREEN URINE NEGATIVE (NEGATIVE); OXYCODONE STAT NEGATIVE (NEGATIVE); PROPOXYPHENE STAT NEGATIVE (NEGATIVE); TRICYCLIC ANTIDEPRESSANTS SCRE NEGATIVE (NEGATIVE)
--- NOTE | 2019-03-23 18:35 | NUR ---
Pt signed consent for transfer.
--- NOTE | 2019-03-23 18:55 | NUR ---
Report to Annette SALINAS. Pt is to be transferred to [facility] as observation bed on [facility].
--- NOTE | 2019-03-23 19:36 | NUR ---
Report from Maddy Rodgers
[2019-03-23] MEDS ORDERED: NS W/KCL 20 MEQ/L 1,000 ML IV ONE (21:00)
[2019-03-23] MEDS ORDERED: ONDANSETRON 4 MG/2 ML (SDV) Z0FRAN ONE (21:00)
[2019-03-23] MEDS ORDERED: PROMETHAZINE INJ 25 MG/ML (PHENERGAN) AMP IVP PRN (21:00)
--- NOTE | 2019-03-23 21:00 | NUR ---
Pt arrival to unit via ems stretcher, pt ambulatory transfers to bed, no ss distress, pt hypotensive on vs eval but denies symptoms. Oriented to call system and surroundings, and order set including medication availability and diet, will cont to monitor. see emar for further care.
[2019-03-23 21:10] VITALS: BP 85/55
[2019-03-23] MEDS: ONDANSETRON 4 MG/2 ML (SDV) Z0FRAN IVP PRN (21:14)
[2019-03-23] MEDS: NS W/KCL 20 MEQ/L 1,000 ML IV SCH (21:14)
[2019-03-23 21:30] VITALS: BP 0/0
[2019-03-24] MEDS ORDERED: NS IV 500 ML 500 ML ONE (00:26)
[2019-03-24 00:38] VITALS: BP 76/50
--- NOTE | 2019-03-24 00:39 | NUR ---
vs taken, pt remains hypotensive, woke from sleep and pt ambulates to bathroom asymptomatic, pulse stable, will cont to monitor.
[2019-03-24] MEDS: NS W/KCL 20 MEQ/L 1,000 ML IV SCH ×3 (02:59→13:02)
[2019-03-24 04:10] VITALS: BP 94/65
[2019-03-24] MEDS: ONDANSETRON 4 MG/2 ML (SDV) Z0FRAN IVP PRN (07:52)
[2019-03-24 08:00] VITALS: BP 80/55
[2019-03-24 13:00] VITALS: BP 92/67
--- NOTE | 2019-03-24 13:40 | NUR ---
Dr. Stokes, hospitalist, here to see pt.
[2019-03-24 14:19] LABS: BASOPHILS % (AUTO) 1 % (0-10); EOSINOPHILS % (AUTO) 1 % (0-10); HEMATOCRIT 33 % (35-52); HEMOGLOBIN 10.7 G/DL (11.5-16.0); LYMPHOCYTES # (AUTO) 2.3 X 10^3 (1.0-4.0); LYMPHOCYTES % (AUTO) 27 % (12-44); MEAN CORPUSCULAR HEMOGLOBIN 28 PG (25-34); MEAN CORPUSCULAR HGB CONC 33 G/DL (32-36); MEAN CORPUSCULAR VOLUME 86 FL (80-99); MEAN PLATELET VOLUME 10.5 FL (7.4-10.4); MONOCYTES % (AUTO) 7 % (0-12); NEUTROPHILS # (AUTO) 5.5 X 10^3 (1.8-7.8); NEUTROPHILS % (AUTO) 65 % (42-75); PLATELET COUNT 273 10^3/uL (130-400); WHITE BLOOD COUNT 8.5 10^3/uL (4.3-11.0)
--- NOTE | 2019-03-24 14:19 | History & Physical-Hospitalist ---
History of Present Illness HPI/Chief Complaint Kadie Artis is a 28-year-old female who is currently 8 weeks presented to the [place] emergency room with nausea and vomiting. She reports that she had been he is unable to eat or drink anything for the 5 days prior to her arrival. She reports that she threw up approximately 10 times yesterday and had a few episodes of diarrhea as well. She tells me that she has had no episodes of nausea and vomiting since last night. She has had 3 episodes of diarrhea this morning. She reports having fevers and chills yesterday. She denies any abdominal pain. She denies any chest pain or shortness of breath. She denies any sick contacts. Source: patient Exam Limitations: no limitations Date Seen 03/24/19 Time Seen by a Provider: 13:30 Attending Physician Aislinn Reeder MD PCP No,Local Physician Referring Physician Date of Admission Mar 23, 2019 at 18:36 Home Medications & Allergies Home Medications Reviewed patient Home Medication Reconciliation performed by pharmacy medication reconciliations mechanical sound technician and/or nursing. Patients Allergies have been reviewed. Allergies Allergies Coded Allergies clindamycin (Verified Allergy, Intermediate, oral blisters, SOB, 01/01/19) Past Xvcauvr-Aypebz-Saftip Hx Past Med/Social Hx: Reviewed Nursing Past Med/Soc Hx Patient Social History Alcohol Use: Denies Use Recreational Drug Use: No Smoking Status: Never a Smoker Former Smoker, Quit: Feb 16, 2019 Type Used: Cigarettes 2nd Hand Smoke Exposure: No Recent Foreign Travel: No Contact w/other who traveled: No Recent Hopitalizations: No Recent Infectious Disease Expo: No Immunizations Up To Date Tetanus Booster (TDap): More than 5yrs Pediatric: Yes Date of Influenza Vaccine: Dec 17, 2012 Seasonal Allergies Seasonal Allergies: No Past Medical History Surgeries: Abdominal, Adenoidectomy, Appendectomy, Gallbladder, Tonsillectomy Hx : 5 Hx Para: 3 Hx Total # of Abortions(Spont): 1 Reproductive: Yes (CPP) Sexually Transmitted Disease: No HIV/AIDS: No Female Reproductive Disorders: Endometriosis, Ovarian Cyst Genitourinary: Kidney Infection, UTI-Chronic Gastrointestinal: Abdominal Hernia, Gall Bladder Disease Musculoskeletal: Chronic Back Pain Psychosocial: Anxiety, Depression History of Blood Disorders: No Adverse Reaction to Blood Das: No Family History No Pertinent Family Hx Review of Systems Constitutional: chills, fever, weakness EENTM: no symptoms reported Respiratory: no symptoms reported Cardiovascular: no symptoms reported Gastrointestinal: diarrhea, nausea, vomiting Genitourinary: no symptoms reported Musculoskeletal: no symptoms reported Skin: no symptoms reported Psychiatric/Neurological: No Symptoms Reported Physical Exam Physical Exam Vital Signs Vital Signs - First Documented 03/23/19 14:12 Temp 36.7 Pulse 112 Resp 16 B/P (MAP) 116/76 (89) Pulse Ox 99 O2 Delivery Room Air Capillary Refill : Less Than 3 Seconds Height, Weight, BMI Height: 4'10.00" Weight: 125lbs. 0oz. 56.290510gv; 24.00 BMI Method:Stated General Appearance: No Apparent Distress, WD/WN HEENT: PERRL/EOMI, Pharynx Normal Neck: Normal Inspection, Supple Respiratory: Lungs Clear, Normal Breath Sounds, No Respiratory Distress Cardiovascular: Regular Rate, Rhythm, No Edema, No Murmur Gastrointestinal: Normal Bowel Sounds, Non Tender, Soft, Other (Periumbilical incision appears well-healing) Extremity: Normal Inspection, Non Tender, No Pedal Edema Neurologic/Psychiatric: Alert, Oriented x3, No Motor/Sensory Deficits, Normal Mood/Affect Skin: Normal Color, Warm/Dry Results Results/Procedures Labs Laboratory Tests 03/23/19 14:50 Patient resulted labs reviewed. Assessment/Plan Admission Diagnosis Nausea and vomiting Admission Status: Observation Assessment and Plan Likely viral gastroenteritis Nausea and vomiting Diarrhea Dehydration Given IV fluids overnight Decrease IV fluids at this time Antiemetics ordered, no nausea and vomiting since last night Clear liquid diet, advance to general as tolerated Obtain stool specimen Reportedly 8 weeks Beta hCG approximately 150,000 Scheduled for first sonogram on Sunday Diagnosis/Problems Diagnosis/Problems (1) Nausea and vomiting Status: Acute FRANKLIN KENNEY MD Mar 24, 2019 14:19
[2019-03-24 14:20] LABS: EOSINOPHILS # (AUTO) 0.1 10^3/uL (0.0-0.3); MONOCYTES # (AUTO) 0.6 X 10^3 (0.0-1.0)
--- NOTE | 2019-03-24 14:30 | NUR ---
Stool sample collected and sent to lab.
[2019-03-24 14:35] LABS: BUN/CREATININE RATIO 7; CALCIUM 8.4 MG/DL (8.5-10.1); CARBON DIOXIDE 17 MMOL/L (21-32); CHLORIDE 113 MMOL/L (98-107); CREATININE SERUM 0.59 MG/DL (0.60-1.30); GFR ESTIMATED > 60; GLUCOSE 71 MG/DL (70-105); SODIUM 138 MMOL/L (135-145)
[2019-03-24 16:00] VITALS: BP 95/59
[2019-03-24] MEDS: LACTATED RINGERS 1,000 ML IV SCH (16:17)
--- NOTE | 2019-03-24 18:20 | NUR ---
Dr Stokes called and updated on pt status. Continues to have diarrhea, but has improved. N/V has improved and pt is tolerating clear liquids. Order to observe overnight and advance diet to regular.
[2019-03-24 20:00] VITALS: BP 92/53
--- NOTE | 2019-03-24 20:20 | NUR ---
Dr Cutler contacted after IV infiltrated. Order for IV to remain out at this time obtained.
[2019-03-25] VITALS: BP 101/59
[2019-03-25 04:04] VITALS: BP 94/54
[2019-03-25] MEDS: LACTATED RINGERS 1,000 ML IV SCH (05:50)
[2019-03-25] MEDS ORDERED: ONDANSETRON 4 MG (ZOFRAN) ORAL DISSOLVE TAB ONE (05:53)
[2019-03-25] MEDS: ONDANSETRON 4 MG (ZOFRAN) ORAL DISSOLVE TAB PO PRN ×2 (05:58→09:59)
--- NOTE | 2019-03-25 05:59 | NUR ---
Pt complaining of nausea, order obtained for oral zofran. Pt educated on nausea and remedies that help with morning nausea.
--- NOTE | 2019-03-25 08:30 | NUR ---
Dr Stokes here to see pt. Observe pt for next hour or two, if doing okay, pt may D/C home with delbert.
[2019-03-25 09:52] VITALS: BP 93/55
--- NOTE | 2019-03-25 11:54 | NUR ---
Dr. Stokes updated on pt status
[2019-03-25 12:00] VITALS: BP 95/52
--- NOTE | 2019-03-25 13:00 | NUR ---
Pts ride is here. Pt ambulates off unit to private vehicle with all personal belongings. No s/s of distress noted. Addendum: 03/25/19 at 1721 by DOTTY AMAYA RN Time of note is error. Event occurred at 1500.
--- NOTE | 2019-03-25 13:20 | NUR ---
Pt finished lunch. Pt verbalizes still experiencing some nausea, but overall feeling better. Dr. Stokes called and updated. Orders for discharge, with #20 zofran ODT 4mg to be called to pharmacy
--- NOTE | 2019-03-25 14:24 | NUR ---
Discharge paperwork explained to pt with copy provided to pt. Pt verbalizes understanding and signs to verify. Pt notified of prescription called to [facility] pharmacy. Pt verbalizes understanding. Pt awaiting ride. No needs or concerns voiced.
--- NOTE | 2019-03-25 14:30 | NUR ---
Debbie ODT 4mg #20 called to [facility]
--- NOTE | 2019-03-25 15:30 | Discharge Summary ---
Discharge Summary Hospital Course Problems/Dx: (1) Nausea and vomiting Status: Acute Final Diagnosis: Viral gastroenteritis Hospital Course Date of Admission: Mar 23, 2019 at 18:36 Admission Diagnosis : Nausea and vomiting Family Physician/Provider: LynnLocal Physician Date of Discharge: 03/25/19 Discharge Diagnosis: Viral gastroenteritis Hospital Course: Kadie Artis is a 28-year-old female who is currently 8 weeks who presented with nausea and vomiting and was admitted to observation with viral gastroenteritis. Her nausea and vomiting improved. She had diarrhea which improved prior to discharge. She did have some ongoing morning sickness as well. She was dehydrated when she was admitted and received IV fluids and improved. She will follow-up with her [facility]. Labs and Pending Lab Test: Microbiology 03/24/19 Stool Culture - Preliminary, Resulted Culture In Progress 03/23/19 Urine Culture - Final, Complete 3 or more isolates Home Meds Active Ondansetron Odt (Ondansetron) 4 Mg Tab.rapdis 4 Mg PO Q8H Assessment/Pt Instructions Take medications as prescribed. Follow-up with your [facility]. Discharge Instructions Discharge Diet: No Restrictions Activity as Tolerated: Yes Discharge Physical Examination General Appearance: Alert, Oriented X3, Cooperative, No Acute Distress HEENT: Atraumatic, PERRLA, EOMI, Mucous Memb Moist/[place] Respiratory: Clear to Auscultation, Normal Air Movement Cardiovascular: Regular Rate, Normal S1, Normal S2, No Murmurs Abdominal: Normal Bowel Sounds, Soft, No Tenderness Extremities: No Edema, No Tenderness/Swelling Skin: No Rashes, No Significant Lesion Neuro: Normal Speech, Normal Tone Psych/Mental Status: Mental Status NL, Mood NL Allergies: Coded Allergies: clindamycin (Verified Allergy, Intermediate, oral blisters, SOB, 01/01/19) Discharge Summary Date of Admission Mar 23, 2019 at 18:36 Date of Discharge Discharge Date: Mar 25, 2019 Discharge Time: 15:30 Admission Diagnosis Nausea and vomiting Discharge Diagnosis Likely viral gastroenteritis Nausea and vomiting Diarrhea Dehydration Given IV fluids overnight Decrease IV fluids at this time Antiemetics ordered, no nausea and vomiting since last night Clear liquid diet, advance to general as tolerated Obtain stool specimen Reportedly 8 weeks Beta hCG approximately 150,000 Scheduled for first sonogram on Sunday (1) Viral gastroenteritis Status: Acute (2) Nausea and vomiting Status: Acute (3) Morning sickness Status: Acute FRANKLIN KENNEY MD Mar 25, 2019 15:30
== END 2019-03-25 15:00 | disposition home or self-care (01) ==
LOC: EDUNIT# 13:39 → ER FS 13:41 → LDRP 18:36
PROVIDERS: ADMIT Family Medicine; ATTEND Family Medicine
DX: O21.0 Mild hyperemesis gravidarum (principal); O23.41 Unspecified infection of urinary tract in pregnancy, first trimester; O26.891 Other specified pregnancy related conditions, first trimester; O99.341 Other mental disorders complicating pregnancy, first trimester; G89.29 Other chronic pain; M54.9 Dorsalgia, unspecified; F32.9 Major depressive disorder, single episode, unspecified; F41.9 Anxiety disorder, unspecified; Z87.891 Personal history of nicotine dependence; Z79.899 Other long term (current) drug therapy; Z90.89 Acquired absence of other organs; Z3A.08 8 weeks gestation of pregnancy; Z88.1 Allergy status to other antibiotic agents
CPT/HCPCS: 36415; 80048; 80053; 80306; 81000; 84702; 85007; 85025; 85027; 87015; 87045; 87046; 87088; 87899; 96361; 96375; 96376; G0378

== ENCOUNTER 2019-05-20 14:42 | Emergency (ER) | payer MEDICAID ==
[~2019-05-20] VITALS: Ht 149 cm; Wt 61.0 kg
[2019-05-20] MEDS ORDERED: PROMETHAZINE INJ 25 MG/ML (PHENERGAN) AMP ONE (14:46)
[2019-05-20] MEDS ORDERED: PROMETHAZINE INJ 25 MG/ML (PHENERGAN) AMP IVP ONE (15:00)
[2019-05-20] MEDS ORDERED: ONDANSETRON 4 MG/2 ML (SDV) Z0FRAN IVP ONE (15:00)
[2019-05-20] MEDS ORDERED: NS IV 1000 ML 1,000 ML IV SCH (15:00)
[2019-05-20 15:03] LABS: BASOPHILS % (AUTO) 0 % (0-10); EOSINOPHILS % (AUTO) 0 % (0-10); HEMATOCRIT 37 % (35-52); HEMOGLOBIN 12.1 G/DL (11.5-16.0); LYMPHOCYTES # (AUTO) 1.7 X 10^3 (1.0-4.0); LYMPHOCYTES % (AUTO) 14 % (12-44); MEAN CORPUSCULAR HGB CONC 33 G/DL (32-36); MEAN CORPUSCULAR VOLUME 86 FL (80-99); MEAN PLATELET VOLUME 10.5 FL (7.4-10.4); MONOCYTES # (AUTO) 0.7 X 10^3 (0.0-1.0); MONOCYTES % (AUTO) 6 % (0-12); NEUTROPHILS # (AUTO) 9.6 X 10^3 (1.8-7.8); NEUTROPHILS % (AUTO) 80 % (42-75); PLATELET COUNT 312 10^3/uL (130-400)
[2019-05-20 15:04] LABS: MEAN CORPUSCULAR HEMOGLOBIN 28 PG (25-34)
[2019-05-20 15:05] LABS: BILIRUBIN,URINE NEGATIVE (NEGATIVE); CLARITY,URINE CLEAR; COLOR,URINE YELLOW; GLUCOSE, URINE (UA) NEGATIVE (NEGATIVE); KETONES,URINE NEGATIVE (NEGATIVE); LEUKOCYTE ESTERASE ,URINE NEGATIVE (NEGATIVE); NITRITE,URINE NEGATIVE (NEGATIVE); PROTEIN,URINE NEGATIVE (NEGATIVE)
--- NOTE | 2019-05-20 15:05 | ED GI ---
General Chief Complaint: Abdominal/GI Problems Stated Complaint: N/V;13 WKS PREG Nursing Triage Note: PT PRESENTS TO THE ED C/O UNCONTROLLED NV FOR THE LAST 24HRS, PT STATES SHE IS 13 WEEKS , USING PRESCRIBED ZOFRAN, ZOFRAN DID NOT MANAGE SYMPTOMS Sepsis Screen: Possible Severe Sepsis Risk Source of Information: Patient Exam Limitations: No Limitations History of Present Illness Date Seen by Provider: May 20, 2019 Time Seen by Provider: 15:03 Initial Comments To ER with reports of uncontrolled nausea and vomiting for the past 24 hours, she is about 16 weeks , she's used the allotted number of Zofran tablets at home without improvement, she had some loose stools last night but no diarrhea. No vaginal bleeding. Timing/Duration: 1-2 Days Severity/Quality: Moderate Location: Generalized Abdomen Radiation: No Radiation Modifying Factors: Improves With Analgesics Associated Symptoms: Denies Symptoms Allergies and Home Medications Allergies Coded Allergies: clindamycin (Verified Allergy, Intermediate, oral blisters, SOB, 01/01/19) Home Medications Ondansetron 4 Mg Tab.rapdis, 4 MG PO Q8H Prescribed by: MARY ANN ZIEGLER on 01/29/19 1550 Promethazine HCl 25 Mg Tablet, 25 MG PO Q8H PRN for NAUSEA/VOMITING Prescribed by: COREY PENDLETON on 05/20/19 1553 Patient Home Medication List Home Medication List Reviewed: Yes Review of Systems Review of Systems Constitutional: see HPI; No chills; malaise EENTM: No Symptoms Reported Respiratory: No Symptoms Reported Cardiovascular: No Symptoms Reported Gastrointestinal: See HPI, Nausea Genitourinary: No Symptoms Reported Musculoskeletal: no symptoms reported Skin: no symptoms reported Psychiatric/Neurological: No Symptoms Reported Endocrine: No Symptoms Reported Hematologic/Lymphatic: No Symptoms Reported Past Wcqkzvt-Ekijzx-Svffmr Hx Patient Social History Alcohol Use: Denies Use Recreational Drug Use: No Smoking Status: Former Smoker Type Used: Cigarettes Former Smoker, Quit: Feb 16, 2019 2nd Hand Smoke Exposure: No Recent Foreign Travel: No Contact w/Someone Who Travel: No Recent Infectious Disease Expo: No Recent Hopitalizations: No Physical Abuse: No Sexual Abuse: No Mistreated: No Fear: No Immunizations Up To Date Tetanus Booster (TDap): More than 5yrs PED Vaccines UTD: Yes Date of Influenza Vaccine: Dec 17, 2012 Seasonal Allergies Seasonal Allergies: No Past Medical History Surgeries: Yes (Umbilical herniorrhaphy 07/04/12,D&C, ENDOMETRIOSIS SCRAPING, d&c, Mesh Tommy) Abdominal, Adenoidectomy, Appendectomy, Gallbladder, Tonsillectomy Respiratory: No Cardiac: No Neurological: No : Yes Last Menstrual Period: Jan 21, 2019 Reproductive Disorders: Yes (CPP) Female Reproductive Disorders: Endometriosis, Ovarian Cyst Sexually Transmitted Disease: No HIV/AIDS: No Genitourinary: Yes Kidney Infection, UTI-Chronic Gastrointestinal: No (umbilical hernia removed 11/25/18) Abdominal Hernia, Gall Bladder Disease Musculoskeletal: No Chronic Back Pain Endocrine: No HEENT: No Cancer: No Psychosocial: Yes Anxiety, Depression Integumentary: No Blood Disorders: No Adverse Reaction/Blood Tranf: No Family Medical History No Pertinent Family Hx Physical Exam Vital Signs Vital Signs - First Documented 05/20/19 14:45 Temp 37.0 Pulse 105 Resp 22 B/P (MAP) 121/85 (97) Pulse Ox 98 O2 Delivery Room Air Capillary Refill : Less Than 3 Seconds Height/Weight/BMI Height: 4'10.00" Weight: 125lbs. 0oz. 56.650290wq; 27.00 BMI Method:Stated General Appearance: WD/WN, no apparent distress Respiratory: no respiratory distress, no accessory muscle use Gastrointestinal: normal bowel sounds, soft Extremities: normal range of motion, non-tender Neurologic/Psychiatric: alert, normal mood/affect, oriented x 3 Skin: normal color, warm/dry Progress/Results/Core Measures Results/Orders Lab Results Laboratory Tests Test 05/20/19 14:50 Range/Units White Blood Count 12.0 H 4.3-11.0 10^3/uL Red Blood Count 4.25 L 4.35-5.85 10^6/uL Hemoglobin 12.1 11.5-16.0 G/DL Hematocrit 37 35-52 % Mean Corpuscular Volume 86 80-99 FL Mean Corpuscular Hemoglobin 28 25-34 PG Mean Corpuscular Hemoglobin Concent 33 32-36 G/DL Red Cell Distribution Width 14.0 10.0-14.5 % Platelet Count 312 130-400 10^3/uL Mean Platelet Volume 10.5 H 7.4-10.4 FL Neutrophils (%) (Auto) 80 H 42-75 % Lymphocytes (%) (Auto) 14 12-44 % Monocytes (%) (Auto) 6 0-12 % Eosinophils (%) (Auto) 0 0-10 % Basophils (%) (Auto) 0 0-10 % Neutrophils # (Auto) 9.6 H 1.8-7.8 X 10^3 Lymphocytes # (Auto) 1.7 1.0-4.0 X 10^3 Monocytes # (Auto) 0.7 0.0-1.0 X 10^3 Eosinophils # (Auto) 0.0 0.0-0.3 10^3/uL Basophils # (Auto) 0.0 0.0-0.1 10^3/uL Urine Color YELLOW Urine Clarity CLEAR Urine pH 6.0 5-9 Urine Specific [place] 1.015 L 1.016-1.022 Urine Protein NEGATIVE NEGATIVE Urine Glucose (UA) NEGATIVE NEGATIVE Urine Ketones NEGATIVE NEGATIVE Urine Nitrite NEGATIVE NEGATIVE Urine Bilirubin NEGATIVE NEGATIVE Urine Urobilinogen 0.2 < = 1.0 MG/DL Urine Leukocyte Esterase NEGATIVE NEGATIVE Urine RBC (Auto) NEGATIVE NEGATIVE Urine RBC NONE /HPF Urine WBC 0-2 /HPF Urine Squamous Epithelial Cells 2-5 /HPF Urine Crystals NONE /LPF Urine Bacteria TRACE /HPF Urine Casts NONE /LPF Urine Mucus NEGATIVE /LPF Urine Culture Indicated NO Sodium Level 137 135-145 MMOL/L Potassium Level 3.9 3.6-5.0 MMOL/L Chloride Level 106 98-107 MMOL/L Carbon Dioxide Level 19 L 21-32 MMOL/L Anion Gap 12 5-14 MMOL/L Blood Urea Nitrogen 8 7-18 MG/DL Creatinine 0.67 0.60-1.30 MG/DL Estimat Glomerular Filtration Rate > 60 BUN/Creatinine Ratio 12 Glucose Level 100 70-105 MG/DL Calcium Level 9.1 8.5-10.1 MG/DL Corrected Calcium 9.3 8.5-10.1 MG/DL Total Bilirubin 0.2 0.1-1.0 MG/DL Aspartate Amino Transf (AST/SGOT) 18 5-34 U/L Alanine Aminotransferase (ALT/SGPT) 17 0-55 U/L Alkaline Phosphatase 47 40-136 U/L Total Protein 7.4 6.4-8.2 GM/DL Albumin 3.7 3.2-4.5 GM/DL Micro Results Microbiology 05/20/19 Influenza Types A,B Antigen ([facility]) - Final, Complete My Orders Orders - COREY PENDLETON APRN Cbc With Automated Diff (05/20/19 14:46) Comprehensive Metabolic Panel (05/20/19 14:46) Ua Culture If Indicated (05/20/19 14:46) Ed Iv/Invasive Line Start (05/20/19 14:46) Ns Iv 1000 Ml (Sodium Chloride 0.9%) (05/20/19 15:00) Ondansetron Injection (Zofran Injectio (05/20/19 15:00) Promethazine Injection (Phenergan Injec (05/20/19 14:46) Promethazine Injection (Phenergan Injec (05/20/19 15:00) Influenza A And B Antigens (05/20/19 15:06) Medications Given in ED Current Medications Medications Dose Ordered Sig/Damion Route Start Time Stop Time Status Last Admin Dose Admin Promethazine HCl 25 mg ONCE ONCE IVP 05/20/19 15:00 05/20/19 15:02 DC 05/20/19 15:02 25 MG Vital Signs/I&O 05/20/19 14:45 Temp 37.0 Pulse 105 Resp 22 B/P (MAP) 121/85 (97) Pulse Ox 98 O2 Delivery Room Air Blood Pressure Mean: 97 Departure Impression Primary Impression: Nausea and vomiting Disposition: 01 HOME, SELF-CARE Condition: Stable Departure-Patient Inst. Decision time for Depature: 15:55 Referrals: NO,LOCAL PHYSICIAN (PCP) Primary Care Physician JOBY MEEKS DO (Family) Primary Care Physician Patient Instructions: No Instuctions Given Add. Discharge Instructions: 1. Return to ER for any concerns 2. Follow-up with your doctor next week 3. All discharge instructions reviewed with patient and/or family. Voiced understanding. Scripts Promethazine HCl (Promethazine Tablet) 25 Mg Tablet 25 MG PO Q8H PRN for NAUSEA/VOMITING, #14 TAB Prov: COREY PENDLETON APRN 05/20/19 COREY PENDLETON APRN May 20, 2019 15:05
[2019-05-20 15:14] LABS: BACTERIA,URINE TRACE /HPF; WBC,URINE 0-2 /HPF
[2019-05-20 15:24] LABS: ALANINE AMINOTRANSFERASE 17 U/L (0-55); ALBUMIN 3.7 GM/DL (3.2-4.5); ALKALINE PHOSPHATASE 47 U/L (40-136); BILIRUBIN,TOTAL 0.2 MG/DL (0.1-1.0); BUN/CREATININE RATIO 12; CALCIUM 9.1 MG/DL (8.5-10.1); CARBON DIOXIDE 19 MMOL/L (21-32); CHLORIDE 106 MMOL/L (98-107); CREATININE SERUM 0.67 MG/DL (0.60-1.30); GFR ESTIMATED > 60; GLUCOSE 100 MG/DL (70-105); POTASSIUM 3.9 MMOL/L (3.6-5.0); SODIUM 137 MMOL/L (135-145); TOTAL PROTEIN 7.4 GM/DL (6.4-8.2)
[2019-05-20] MEDS ORDERED: PROM25TA14 PO (15:53)
[2019-05-20 16:11] VITALS: BP 116/72
== END 2019-05-20 16:14 | disposition home or self-care (01) ==
LOC: EDUNIT# 14:42 → ER 14:43
DX: O21.0 Mild hyperemesis gravidarum (principal); Z3A.16 16 weeks gestation of pregnancy; Z88.1 Allergy status to other antibiotic agents; Z87.891 Personal history of nicotine dependence
CPT/HCPCS: 36415; 80053; 81000; 85025; 87804

== ENCOUNTER → 2019-06-16 | Outpatient (CLI) | payer MEDICAID ==
[~2019-06-16] MED LIST changes: +PROM25TA14 PO
--- NOTE | 2019-06-16 12:06 | Diagnostic Imaging Report ---
INDICATION: survey. TECHNIQUE: Multiple real-time grayscale images were obtained over the gravid uterus. COMPARISON: None FINDINGS: There is a single live fetus in a transverse presentation, head to maternal right. heart rate was recorded at 149 bpm. Placenta is anterior. There does appear to be placenta previa present, at least partial. Amniotic fluid index is 11.3 cm. survey shows kidneys, bladder and stomach appear unremarkable. brain is unremarkable. There is a three-vessel cord with normal insertion. spine is unremarkable. Four-chamber heart view is somewhat limited due to position. Biometrical measurements are as follows: Biparietal 5.06 cm, age 21 weeks 3 days. Head circumference 18.41 cm, age 20 weeks 6 days. Abdominal circumference 15.49 cm, age 20 weeks 5 days. Femur length 3.02 cm, age 19 weeks 3 days. Sonographic estimate age: 20 weeks 5 days. Sonographic estimated date of delivery: 10/29/2019. Estimated Weight: 337 gm (+/- 49 gm). LMP percentile: 15%. heart rate: 149 beats per minute. number: 1 of 1. IMPRESSION: 1. Single live IUP 20 weeks 5 days gestational age with estimated date of confinement sonographically of 10/29/2019. 2. survey is unremarkable although four-chamber heart view is limited due to position. 3. Partial placenta previa. Dictated by: Dictated on workstation # [id number]
== END ==
LOC: RAD 09:42
PROVIDERS: ATTEND Obstetrics & Gynecology
DX: Z36.9 Encounter for antenatal screening, unspecified (principal); O44.22 Partial placenta previa NOS or without hemorrhage, second trimester; Z3A.20 20 weeks gestation of pregnancy
CPT/HCPCS: 76805

== ENCOUNTER → 2019-07-21 | Outpatient (CLI) | payer MEDICAID ==
[~2019-07-21] MED LIST changes: -SENN-141 PO; +SENN-234 PO
--- NOTE | 2019-07-21 12:38 | Diagnostic Imaging Report ---
INDICATION: Low-lying placenta. Placenta is anterior. There is no abruption or previa. The nondilated cervix has a length of 5.4 cm. No abnormality at the anatomical survey is found in particular the structures including 4 chambered heart that were suboptimally visualized on the comparison study of 06/15 now appear normal amniotic fluid volume appeared normal. Positioning is cephalic. IMPRESSION: Anterior placenta. No abruption or previa. Normal appearance of the anatomical structures and 4 chambered heart. Cervix nondilated 5.4 cm TECHNIQUE: Multiple real-time grayscale images were obtained over the gravid uterus. COMPARISON: None FINDINGS: Biometrical measurements are as follows: Biparietal cm, age weeks days. Head circumference cm, age weeks days. Abdominal circumference cm, age weeks days. Femur length cm, age weeks days. Sonographic estimate age: weeks days. Sonographic estimated date of delivery: . Estimated Weight: gm (+/- gm). LMP percentile: %. heart rate: beats per minute. number: of . IMPRESSION: Dictated by: Dictated on workstation # [id number]
== END ==
LOC: RAD 09:53
PROVIDERS: ATTEND Obstetrics & Gynecology
DX: Z04.89 Encounter for examination and observation for other specified reasons (principal); O44.42 Low lying placenta NOS or without hemorrhage, second trimester; Z3A.22 22 weeks gestation of pregnancy
CPT/HCPCS: 76816

== ENCOUNTER 2019-08-26 13:54 | Outpatient (CLI) | payer MEDICAID ==
[~2019-08-26] VITALS: Ht 149 cm; Wt 73.6 kg
--- NOTE | 2019-08-26 13:19 | NUR ---
Dr Herring notified per this RN of pt call with complaints of diarrhea and vomiting. This RN called pt and informed her to come to OB for IV fluids.
--- NOTE | 2019-08-26 14:01 | NUR ---
CAM ESCOBEDO presented to unit via ambulatory from ED, accompanied by self, with c/o DIARRHEA;ABD PAIN;CRAMPING. CAM ESCBOEDO weighed, gowned, voided, and to bed. EFHM and TOCO applied, VS taken. CAM ESCOBEDO oriented to bed controls, call light, TV, heat, and A/C controls. Pt states has had diarrhea x 1 week and vomiting today. Has tried BRAT diet and soup per suggested by office last week without relief. Stated had liquid stools 15 times since midnight. Ate dinner last night and has toast this am but vomits all oral liquid today. Also complains of sharp stabbing pain in rt side. Explained about ligament pain. Has also had some cramping and unable to determine if it is bowels or uterus. FHR 130's with accelerations.
[2019-08-26 14:20] VITALS: BP 106/68
--- NOTE | 2019-08-26 14:55 | NUR ---
Dr Herring text for orders.
[2019-08-26] MEDS ORDERED: NS IV 1000 ML 1,000 ML ONE (15:04)
[2019-08-26] MEDS ORDERED: NS IV 1000 ML 1,000 ML IV SCH (15:04)
[2019-08-26 15:30] LABS: BILIRUBIN,URINE NEGATIVE (NEGATIVE); CLARITY,URINE CLEAR; COLOR,URINE YELLOW; GLUCOSE, URINE (UA) NEGATIVE (NEGATIVE); KETONES,URINE 2+ (NEGATIVE); LEUKOCYTE ESTERASE ,URINE TRACE (NEGATIVE); NITRITE,URINE NEGATIVE (NEGATIVE); PROTEIN,URINE NEGATIVE (NEGATIVE)
[2019-08-26] MEDS ORDERED: PROMETHAZINE INJ 25 MG/ML (PHENERGAN) AMP IVP ONE (15:30)
[2019-08-26 15:38] LABS: BACTERIA,URINE FEW /HPF; WBC,URINE 0-2 /HPF
[2019-08-26 15:50] LABS: BASOPHILS % (AUTO) 0 % (0-10); EOSINOPHILS % (AUTO) 0 % (0-10); HEMATOCRIT 31 % (35-52); HEMOGLOBIN 9.8 G/DL (11.5-16.0); LYMPHOCYTES # (AUTO) 1.4 X 10^3 (1.0-4.0); LYMPHOCYTES % (AUTO) 15 % (12-44); MEAN CORPUSCULAR HEMOGLOBIN 25 PG (25-34); MEAN CORPUSCULAR HGB CONC 31 G/DL (32-36); MEAN CORPUSCULAR VOLUME 80 FL (80-99); MEAN PLATELET VOLUME 10.7 FL (7.4-10.4); MONOCYTES # (AUTO) 0.9 X 10^3 (0.0-1.0); MONOCYTES % (AUTO) 9 % (0-12); NEUTROPHILS # (AUTO) 7.1 X 10^3 (1.8-7.8); NEUTROPHILS % (AUTO) 75 % (42-75); PLATELET COUNT 252 10^3/uL (130-400); WHITE BLOOD COUNT 9.4 10^3/uL (4.3-11.0)
[2019-08-26] MEDS ORDERED: ACETAMINOPHEN 325 MG TABLET PO PRN (16:00)
[2019-08-26] MEDS ORDERED: ACETAMINOPHEN 325 MG TABLET ONE (16:02)
[2019-08-26 16:03] LABS: ALBUMIN 3.4 GM/DL (3.2-4.5)
[2019-08-26 16:04] LABS: CHLORIDE 109 MMOL/L (98-107); POTASSIUM 3.6 MMOL/L (3.6-5.0); SODIUM 136 MMOL/L (135-145)
[2019-08-26 16:05] LABS: CALCIUM 8.5 MG/DL (8.5-10.1)
[2019-08-26 16:06] LABS: GLUCOSE 82 MG/DL (70-105); TOTAL PROTEIN 6.7 GM/DL (6.4-8.2)
[2019-08-26] MEDS ORDERED: PROMETHAZINE INJ 25 MG/ML (PHENERGAN) AMP ONE (16:06)
[2019-08-26 16:07] LABS: CARBON DIOXIDE 17 MMOL/L (21-32)
[2019-08-26 16:08] LABS: BILIRUBIN,TOTAL 0.3 MG/DL (0.1-1.0)
[2019-08-26 16:09] LABS: ALKALINE PHOSPHATASE 102 U/L (40-136)
[2019-08-26 16:10] LABS: CREATININE SERUM 0.59 MG/DL (0.60-1.30); GFR ESTIMATED > 60
[2019-08-26 16:11] LABS: BUN/CREATININE RATIO 10
[2019-08-26 16:12] LABS: ALANINE AMINOTRANSFERASE 9 U/L (0-55)
[2019-08-26 16:14] LABS: BAND NEUTROPHILS 2 %; BASOPHILS % (MANUAL) 0 %; EOSINOPHILS % (MANUAL) 1 %; LYMPHOCYTES % (MANUAL) 12 %; MONOCYTES % (MANUAL) 7 %; NEUTROPHILS % (MANUAL) 78 %; POLYCHROMASIA SLIGHT
[2019-08-26 16:15] LABS: ANISOCYTOSIS SLIGHT; HYPOCHROMASIA SLIGHT
[2019-08-26 16:35] VITALS: BP 112/72
--- NOTE | 2019-08-26 17:15 | NUR ---
No vomiting or diarrhea since admission. No longer feels nauseated since IV Promethazine. Requesting food - Dr Herring notified and orders received. Plan: if she tolerates diet may go home this evening. Will call Zofran [facility] tid prn # [facility].
--- NOTE | 2019-08-26 17:53 | NUR ---
External monitors dc'd. FHR 140's with accelerations. Occasional possible contraction and occasional uterine irritability.
[2019-08-26] MEDS ORDERED: ONDA8TAB6 PO (19:05)
--- NOTE | 2019-08-26 19:31 | NUR ---
Pt voided x 3 since admission - 400ml total voids. Discharge to home ambulatory.
--- NOTE | 2019-08-27 09:31 | Physician Query-Final Dx ---
JOHN BELTRAN 08/27/19 0931: Clinic Account Progress/Dx Physician Query: Please give diagnosis Please include # weeks gestation Date of Service Aug 26, 2019 at 13:54 JOBY MEEKS DO 08/27/19 1050: Clinic Account Progress/Dx DIAGNOSIS: Diagnosis 30 week gestation nausea, vomiting, diarrhea, dehydration viral gastroenteritis JOHN BELTRAN Aug 27, 2019 09:31 JOBY MEEKS DO Aug 27, 2019 10:50
== END 2019-08-26 19:30 ==
LOC: WSo 13:54 → LDRP 13:56 → WSo 19:30
PROVIDERS: ATTEND Obstetrics & Gynecology
DX: O99.613 Diseases of the digestive system complicating pregnancy, third trimester (principal); A08.4 Viral intestinal infection, unspecified; Z3A.30 30 weeks gestation of pregnancy
CPT/HCPCS: 36415; 80053; 81000; 85007; 85027; 87088

== ENCOUNTER → 2019-09-12 | Outpatient (CLI) | payer MEDICAID ==
[~2019-09-12] MED LIST changes: +ONDA8TAB6 PO
--- NOTE | 2019-09-12 12:12 | Diagnostic Imaging Report ---
INDICATION: well-being check growth TECHNIQUE: Multiple real-time grayscale images were obtained over the gravid uterus. COMPARISON 06/16/2019 and 07/21/2019 FINDINGS: The prior OB ultrasound exam of 07/21/2019 noted a single live fetus of approximately 25 weeks 6 days gestation +/- 1.5 weeks. There were no abnormalities identified. On this study, the fetus is again visualized. The fetus is cephalic in presentation. heart motion is noted and a rate of 153 BPM was recorded. There were no abnormalities noted. The placenta is anterior and there is no previa. The amniotic fluid volume is within normal limits. The growth parameters are fairly uniform and have progressed as expected since the prior study. The cervix was identified and measures 4.6 cm in length. The biophysical profile score was 8 out of 8 and within normal limits. Biometrical measurements are as follows: Biparietal 8.33 cm, age 33 weeks 4 days. Head circumference 30.60 cm, age 34 weeks 1 days. Abdominal circumference 29.32 cm, age 33 weeks 3 days. Femur length 6.33 cm, age 32 weeks 6 days. Sonographic estimate age: 33 weeks 4 days. Sonographic estimated date of delivery: 10/27/2019. Estimated Weight: 2151 gm (+/- 314 gm). LMP percentile: 36%. heart rate: 153 beats per minute. number: 1 of 1. IMPRESSION: 1. There is a single live fetus approximately 33 weeks 2 days gestation +/- 1.5 weeks. The EDC remains 10/29/2019. 2. There were no abnormalities identified. 3. The growth parameters have progressed as expected since the prior exam. 4. The biophysical profile score is within normal limits. Dictated by: Dictated on workstation # [id number]
== END ==
LOC: RAD 10:11
PROVIDERS: ATTEND Obstetrics & Gynecology
DX: O26.843 Uterine size-date discrepancy, third trimester (principal); O36.8130 Decreased fetal movements, third trimester, not applicable or unspecified; Z3A.33 33 weeks gestation of pregnancy
CPT/HCPCS: 76805; 76819

== ENCOUNTER 2019-09-27 22:34 | Outpatient (CLI) | payer MEDICAID ==
[~2019-09-27] VITALS: Ht 149.9 cm; Wt 78.2 kg
--- NOTE | 2019-09-27 22:43 | NUR ---
CAM ESCOBEDO presented to unit via ambulation from ED, accompanied by self, with c/o LOWER ABD PRESSURE/PAIN. CAM ESCOBEDO weighed, gowned, voided, and to bed. EFHM and TOCO applied, VS taken. CAM ESCOBEDO oriented to bed controls, call light, TV, heat, and A/C controls.
[2019-09-27 22:53] VITALS: BP 117/71
[2019-09-27 22:54] VITALS: BP 117/71
[2019-09-27 22:57] VITALS: BP 117/71
[2019-09-27 23:06] LABS: CLARITY,URINE CLEAR; COLOR,URINE YELLOW; GLUCOSE, URINE (UA) NEGATIVE (NEGATIVE); KETONES,URINE 1+ (NEGATIVE); LEUKOCYTE ESTERASE ,URINE NEGATIVE (NEGATIVE); NITRITE,URINE NEGATIVE (NEGATIVE); PROTEIN,URINE 1+ (NEGATIVE)
[2019-09-27 23:19] LABS: BILIRUBIN,URINE 1+ (NEGATIVE)
[2019-09-27 23:20] LABS: BACTERIA,URINE MODERATE /HPF; SQUAMOUS EPITHELIAL CELL,UR 25-50 /HPF
[2019-09-27] MEDS ORDERED: CEPHALEXIN 250 MG (KEFLEX) CAP PO ONE (23:33)
[2019-09-27] MEDS ORDERED: CEPH-507 PO (23:34)
[2019-09-28 00:25] VITALS: BP 117/71
--- NOTE | 2019-09-28 00:35 | NUR ---
Discharge instructions verbalized with pt. Pt verbalized understanding. Labor precautions given.Pt discharged home. Will follow up in office on Sunday. Keflex 500mg qid x7 days called in [facility] in [place]
--- OUTSIDE RECORDS SUMMARY | 2019-09-28 00:48 | XMS REPORT | Continuity of Care Document ---
Author Organization Unknown Address Unknown Phone Unavailable Allergies Active Description Code Type Severity Reaction Onset Reported/Identified Relationship to Patient Clinical Status Yes CLINDAMYCIN UNKNOWN UNKNOWN Yes CLINDAMYCIN HCL S EVERE SEVERE Yes LATEX MILD MILD Yes No Known Drug Allergies [id number] Drug Allergy Unknown N/A 01/05/2014 Yes TRAMADOL [id number] Drug Allergy N/A N/A 06/01/2016 Yes clindamycin [id number] Drug Aller gy Moderate oral blisters, 01/01/2019 [...] KEVIN MCCRAY Ot 599.70 HEMATURIA, UNSPECIFIED 03/29/2013 EKVIN MCCRAY Ot 723.4 BRACHIAL NEURITIS NOS 03/29/2013 KEVIN MCCRAY Ot 780.79 OTH MALAISE FATIGUE 03/29/2013 KEVIN MCCRAY Ot 789.00 ABDOMINAL PAIN, UNSPECIFIED SITE 05/03/2013 KEVIN MCCRAY Ot 574.20 CHOLELITHIASIS NOS 05/03/2013 KEVIN MCCRAY Ot 787.01 NAUSEA WITH VOMITING 05/04/2013 KEVIN MCCRAY Ot 574.20 CHOLELITHIASIS NOS 05/04/2013 KEVIN MCCRAY Ot 789.01 ABDOMINAL PAIN, RIGHT UPPER QUADRANT 05/12/2013 ERI MCMANUS ANGELA K Ot 338.18 OTHER ACUTE POSTOPERATIVE PAIN 05/12/2013 ERI MCMANUS ANGELA K Ot 599.0 URIN TRACT INFECTION NOS 05/12/2013 HUSSEIN HWANG DOA K Ot 787.02 NAUSEA ALONE 05/12/2013 ERI [...] 01/07/2014 ESTEPHANIA MCNAMARA MD Ot 568.0 PERITONEAL [id number]/INF 01/07/2014 ESTEPHANIA MCNAMARA MD Ot 617.9 ENDOMETRIOSIS NOS 01/07/2014 ESTEPHANIA MCNAMARA MD Ot 620.2 OVARIAN CYST NEC/NOS 01/07/2014 ESTEPHANIA MCNAMARA MD Ot 789.03 ABDOMINAL PAIN, RIGHT LOWER QUADRANT 01/11/2014 DIONICIO REEVES MD Ot 599. 0 URIN TRACT INFECTION NOS 01/11/2014 LALA GARRISON, DIONICIO Bonilla Ot 788. 1 DYSURIA 01/14/2014 ANDERS GARRISON, ESTEPHANIA Taylor Ot 079.99 VIRAL INFECTION NOS 01/14/2014 ANDERS GARRISON, ESTEPHANIA Taylor Ot 590.80 PYELONEPHRITIS NOS 01/14/2014 ANDERS GARRISON, ESTEPHANIA Taylor Ot 646.63 INFECTION-ANTEPARTUM 01/14/2014 ANDERS GARRISON, ESTEPHANIA Taylor Ot 647.63 OTH VIRAL DIS-ANTEPARTUM 01/17/2014 ANGELA HWANG DO Ot 599.0 URIN TRACT INFECTION NOS 01/17/2014 ANGELA HWANG DO Ot 787.01 NAUSEA WITH VOMITING 01/17/2014 ANGELA HWANG DO Ot 787.03 VOMITING ALONE 05/23/2014 Ot 599.0 URIN TRACT INFECTION NOS 05/23/2014 Ot 787.01 YUNIEL SEA WITH VOMITING 06/19/2014 Ot 553.1 06/19/2014 Ot V72.63 06/19/2014 Ot V74.8 06/19/2014 TEA GARRISON, STEPHANIE Ot 575.11 06/19/2014 TEA GARRISON, STEPHANIE Ot 574.20 06/19/2014 TEA GARRISON, STEPHANIE Ot V72.84 06/19/2014 ANDERS GARRISON, ESTEPHANIA Taylor Ot 625.9 06/19/2014 ESTEPHANIA MCNAMARA MD Ot V72.63 06/19/2014 ESTEPHANIA MCNAMARA MD Ot V74.8 06/19/2014 KEVIN MCCRAY Ot 648.93 OTH CURR COND-ANTEPARTUM 06/19/2014 KEVIN MCCRAY Ot 787.02 NAUSEA ALONE 06/19/2014 KEIVN MCCRAY Ot 787.91 DIARRHEA 06/19/2014 KEVIN MCCRAY Ot 789.00 ABDOMINAL PAIN, UNSPECIFIED SITE 06/24/2014 Ot 553.1 06/24/2014 Ot V72.63 06/24/2014 Ot V74.8 06/24/2014 TEA GARRISON, BRITTNYKI Ot 575.11 06/24/2014 TEA GARRISON, MIKEAAEMMETT Ot 574.20 06/24/2014 TEA GARRISON, STEPHANIE Ot V72.84 06/24/2014 ESTEPHANIA MCNAMARA MD Ot 625.9 06/24/2014 ANDERS GARRISON, ESTEPHANIA Taylor Ot V72.63 06/24/2014 ESTEPHANIA MCNAMARA MD, Ot V74.8 06/27/2014 COREY PENDLETON RUG MEASURER Ot 640.03 THREATEN ABORT-ANTEPART 06/27/2014 COREY PENDLETON RUG MEASURER Ot 644.03 THRT KIM LABOR-ANTEPART 06/28/2014 COREY PENDLETON RUG MEASURER Ot 623 .8 NONINFLAM DIS VAGINA NEC 06/28/2014 COREY PENDLETON RUG MEASURER Ot 634.90 SPON ABORT UNCOMPL-UNSP 07/15/2014 ESTEPHANIA MCNAMARA MD Ot 615.9 UTERINE INFLAM DIS NOS 07/15/2014 ESTEPHANIA MCNAMARA MD Ot 620.1 CORPUS LUTEUM CYST 07/15/2014 ANDERS GARRISON, ESTEPHANIA Taylor Ot V74.8 SCREEN-BACTERIAL DIS NEC 08/28/2014 KEVIN MCCRAY Ot 599.0 URIN TRACT INFECTION NOS 09/04/2014 ESTEPHANIA MCNAMARA MD Ot 634.11 10/15/2014 Ot 553.1 10/15/2014 Ot V72.63 10/15/2014 Ot V74.8 10/15/2014 TEA GARRISON, STEPHANIE Ot 575.11 10/15/2014 TEA GARRISON, STEPHANIE Ot 574.20 10/15/2014 TEA GARRISON, STEPHANIE Ot V72.84 10/15/2014 ESTEPHANIA MCNAMARA MD Ot 625.9 10/15/2014 ESTEPHANIA MCNAMARA MD Ot V72.63 10/15/2014 ANDERS GARRISON, ESTEPHANIA Taylor Ot V74.8 10/15/2014 ESTEPHANIA MCNAMARA MD Ot [...] 10/15/2014 ANDERS GARRISON, ESTEPHANIA G Ot 634.11 10/17/2014 Ot 553.1 10/17/2014 Ot V72.63 10/17/2014 Ot V74.8 10/17/2014 TEA GARRISON, STEPHANIE Ot 575.11 10/17/2014 TEA GARRISON, STEPHANIE Ot 574.20 10/17/2014 TEA GARRISON, STEPHANIE Ot V72.84 10/17/2014 ANDERS GARRISON, ESTEPHANIA Taylor Ot 625.9 10/17/2014 ANDERS GARRISON, ESTEPHANIA Taylor Ot V72.63 10/17/2014 ANDERS GARRISON, ESTEPHANIA Taylor Ot V74.8 10/17/2014 NADERS GARRISON, ESTEPHANIA Claudia Ot 634.11 10/18/2014 KEVIN MCCRAY Ot 595.9 CYSTITIS NOS 10/18/2014 KEVIN MCCRAY Ot 599.70 HEMATURIA, UNSPECIFIED 11/04/2014 LUISITO OMALLEY MD Ot 789.04 ABDOMINAL PAIN, LEFT LOWER QUADRANT 09/17/2015 Ot 599.0 URIN TRACT INFECTION NOS 09/17/2015 Ot 616.0 CERV ICITIS 09/17/2015 Ot 788.1 DYSURIA 06/01/2016 MARIANN GALLEGOS DO N39. 0 URINARY TRACT INFECTION, SITE NOT SPECIFIED 06/01/2016 MARIANN GALLEGOS DO R10. 11 RIGHT UPPER QUADRANT PAIN 06/29/2018 TEA GARRISON, STEPHANIE Ot 575.11 CHRONIC CHOLECYSTITIS 06/29/2018 TEA GARRISON, STEPHANIE Ot 574.20 CHOLELITHIASIS NOS 06/29/2018 TEA GARRISON, STEPHANIE Ot V72.84 EXAM PRE-OPERATIVE NOS 06/29/2018 ESTEPHANIA MCNAMARA MD Ot 625.9 FEM GENITAL SYMPTOMS NOS 06/29/2018 ESTEPHANIA MCNAMARA MD Ot V72.63 PRE-PROCEDURAL LABORATORY EXAMINATION 06/29/2018 ESTEPHANIA MCNAMARA MD Ot V74.8 SCREEN-BACTERIAL DIS NEC 06/29/2018 ESTEPHANIA MCNAMARA MD Ot 634.11 SPON ABORT W HEMORR-INC 06/29/2018 DIONICIO REEVES MD Ot F32. 9 MAJOR DEPRESSIVE DISORDER, SINGLE EPISOD 06/29/2018 DIONICIO REEVES MD Ot K04. 7 PERIAPICAL ABSCESS WITHOUT SINUS 06/29/2018 DIONICIO REEVES MD Ot R22. 1 LOCALIZED SWELLING, MASS AND LUMP, NECK 06/29/2018 DIONICIO REEVES MD Ot T78.40XA ALLERGY, UNSPECIFIED, INITIAL ENCOUNTER 06/29/2018 DIONICIO REEVES MD A Ot Z87. 19 PERSONAL HISTORY OF OTHER DISEASES OF TH 06/29/2018 DIONICIO REEVES MD A Ot Z87.440 PERSONAL HISTORY OF URINARY (TRACT) INFE 06/29/2018 DIONICIO REEVES MD A Ot Z87.448 PERSONAL HISTORY OF OTHER DISEASES OF UR 06/29/2018 DIONICIO REEVES MD A Ot Z90. 49 ACQUIRED ABSENCE OF OTHER SPECIFIED PART 06/29/2018 DIONICIO REEVES MD A Ot Z90. 89 ACQUIRED ABSENCE OF OTHER ORGANS 06/29/2018 DIONICIO REEVES MD A Ot Z98.890 OTHER SPECIFIED POSTPROCEDURAL STATES 07/02/2018 DIONICIO REEVES MD Ot F32. 9 MAJOR DEPRESSIVE DISORDER, SINGLE EPISOD 07/02/2018 DIONICIO REEVES MD A Ot K04. 7 PERIAPICAL ABSCESS WITHOUT SINUS 07/02/2018 DIONICIO REEVES MD Ot R22. 1 LOCALIZED SWELLING, MASS AND LUMP, NECK 07/02/2018 DIONICIO REEVES MD A Ot T78.40XA ALLERGY, UNSPECIFIED, INITIAL ENCOUNTER 07/02/2018 DIONICIO REEVES MD A Ot Z87. 19 PERSONAL HISTORY OF OTHER DISEASES OF TH 07/02/2018 DIONICIO REEVES MD A Ot Z87.440 PERSONAL HISTORY OF URINARY (TRACT) INFE 07/02/2018 DIONICIO REEVES MD, Ot Z87.448 PERSONAL HISTORY OF OTHER DISEASES OF UR 07/02/2018 DIONICIO REEVES MD Ot Z90. 49 ACQUIRED ABSENCE OF OTHER SPECIFIED PART 07/02/2018 DIONICIO REEVES MD Ot Z90. 89 ACQUIRED ABSENCE OF OTHER ORGANS 07/02/2018 DIONICIO REEVES MD Ot Z98.890 OTHER SPECIFIED POSTPROCEDURAL STATES 10/21/2018 DEBBIE RASHEED DO, Ot F32.9 MAJOR DEPRESSIVE DISORDER, SINGLE EPISOD 10/21/2018 DEBBIE RASHEED DO, Ot H66.92 OTITIS MEDIA, UNSPECIFIED, LEFT EAR 10/21/2018 DEBBIE RASHEED DO Ot J20.9 ACUTE BRONCHITIS, UNSPECIFIED 10/21/2018 DEBBIE RASHEED DO Ot M94.0 CHONDROCOSTAL JUNCTION SYNDROME [TIETZE] 10/21/2018 DEBBIE RASHEED DO, Ot R0 5 COUGH 10/21/2018 DEBBIE RASHEED DO, Ot Z87.19 PERSONAL HISTORY OF OTHER DISEASES OF TH 10/21/2018 DEBBIE RASHEED DO, Ot Z87.440 PERSONAL HISTORY OF URINARY (TRACT) INFE 10/21/2018 DEBBIE RASHEED DO, Ot Z90.49 ACQUIRED ABSENCE OF OTHER SPECIFIED PART 10/21/2018 DEBBIE RASHEED DO Ot Z90.89 ACQUIRED ABSENCE OF OTHER ORGANS 10/22/2018 STEPHANIE MASSEY MD Ot 575.11 CHRONIC CHOLECYSTITIS 10/22/2018 STEPHANIE MASSEY MD Ot 574.20 CHOLELITHIASIS NOS 10/22/2018 STEPHANIE MASSEY MD Ot V72.84 EXAM PRE-OPERATIVE NOS 10/22/2018 ESTEPHANIA MCNAMARA MD Ot 625.9 FEM GENITAL SYMPTOMS NOS 10/22/2018 ESTEPHANIA MCNAMARA MD, Ot V72.63 PRE-PROCEDURAL LABORATORY EXAMINATION 10/22/2018 ESTEPHANIA MCNAMARA MD, Ot V74.8 SCREEN-BACTERIAL DIS NEC 10/22/2018 ESTEPHANIA MCNAMARA MD Ot 634.11 SPON ABORT W HEMORR-INC 2018 DEBBIE RASHEED DO Ot F32.9 MAJOR DEPRESSIVE DISORDER, SINGLE EPISOD 2018 DEBBIE RASHEED DO, Ot H66.92 OTITIS MEDIA, UNSPECIFIED, LEFT EAR 2018 KATHYA MCMANUS DEBBIE Tamar Ot J20.9 ACUTE BRONCHITIS, UNSPECIFIED 2018 KATHYA MCMANUS DEBBIE Tamar Ot M94.0 CHONDROCOSTAL JUNCTION SYNDROME [TIETZE] 2018 KATHYA MCMANUSDEBBIE Ot R0 5 COUGH 2018 KATHYA MCMANUS DEBBIE Tamar Rose Z87.19 PERSONAL HISTORY OF OTHER DISEASES OF TH 2018 KATHYA MCMANUSDEBBIE Ot Z87.440 PERSONAL HISTORY OF URINARY (TRACT) INFE 2018 KATHYA MCMANUSDEBBIE Ot Z90.49 ACQUIRED ABSENCE OF OTHER SPECIFIED PART 2018 KATHYA MCMANUSDEBBIE Ot Z90.89 ACQUIRED ABSENCE OF OTHER ORGANS [...] CONTACT DERMATITIS DUE TO PLANTS, EXCEPT FOOD 01/01/2019 COREY PENDLETON APRN Ot F17.210 NICOTINE DEPENDENCE, CIGARETTES, UNCOMPL 01/01/2019 COREY PENDLETON APRN Ot F32 .9 MAJOR DEPRESSIVE DISORDER, SINGLE EPISOD 01/01/2019 COREY PENDLETON APRN Ot T81.31XA DISRUPTION OF EXTERNAL OPERATION (SURGIC 01/01/2019 COREY PENDLETON APRN Ot Z87.440 PERSONAL HISTORY OF URINARY (TRACT) INFE 01/01/2019 COREY PENDLETON APRN Ot Z88 .1 ALLERGY STATUS TO OTHER ANTIBIOTIC AGENT 01/01/2019 COREY PENDLETON APRN Ot Z90.49 ACQUIRED ABSENCE OF OTHER SPECIFIED PART 01/01/2019 COREY PENDLETON APRN Ot Z90.89 ACQUIRED ABSENCE OF OTHER ORGANS 01/06/2019 COREY PENDLETON APRN Ot F17.210 NICOTINE DEPENDENCE, CIGARETTES, UNCOMPL 01/06/2019 COREY PENDLETON APRN Ot F32 .9 MAJOR DEPRESSIVE DISORDER, SINGLE EPISOD 01/06/2019 COREY PENDLETON APRN Ot T81.31XA DISRUPTION OF EXTERNAL OPERATION (SURGIC 01/06/2019 COREY PENDLETON APRN Ot Z87.440 PERSONAL HISTORY OF URINARY (TRACT) INFE 01/06/2019 COREY PENDLETON APRN Ot Z88 .1 ALLERGY STATUS TO OTHER ANTIBIOTIC AGENT 01/06/2019 COREY PNEDLETON APRN Ot Z90.49 ACQUIRED ABSENCE OF OTHER [...] OF PROCEDURES, NEC, IN 01/15/2019 COREY PENDLETON APRN Ot Z87.440 PERSONAL HISTORY OF URINARY (TRACT) INFE 01/15/2019 COREY PENDLETON APRN Ot Z88 .1 ALLERGY STATUS TO OTHER ANTIBIOTIC AGENT 01/15/2019 COREY PENDLETON APRN Ot Z90.49 ACQUIRED ABSENCE OF OTHER SPECIFIED PART 01/15/2019 COREY PENDLETON RUG MEASURER Ot Z90.89 ACQUIRED ABSENCE OF OTHER ORGANS 01/24/2019 DAWSON DO, SADIE L Ot F32.9 MAJOR DEPRESSIVE DISORDER, SINGLE EPISOD 01/24/2019 SAMIR DO, SADIE L Ot F41.9 ANXIETY DISORDER, [...] Z90.8 9 ACQUIRED ABSENCE OF OTHER ORGANS 01/27/2019 Stephanie Massey W 552.21 INCISIONAL HERNIA WITH OBSTRUCTION 01/27/2019 Stephanie Massey W 998.59 OTHER POSTOPERATIVE INFECTION 01/27/2019 Stephanie Massey W H69.90 UNSPECIFIED EUSTACHIAN TUBE DISORDER, UNSPECIFIED EAR 01/27/2019 Stephanie Massey W K43.2 INCISIONAL HERNIA WITHOUT OBSTRUCTION OR GANGRENE 01/27/2019 LeannamireyaStephanie W L25.5 UNSPECIFIED CONTACT DERMATITIS DUE TO PLANTS, EXCEPT FOOD 01/27/2019 Stephanie Massey W T81.43XA INFCT FOL A PROCEDURE, ORGAN AND SPACE SURGICAL SITE, INIT 01/28/2019 SAMIR DO, SADIE L Ot F32.9 MAJOR DEPRESSIVE [...] Z90.8 9 ACQUIRED ABSENCE OF OTHER ORGANS 01/29/2019 TONEY GARRISON, MARY ANN Harper Ot F17.210 NICOTINE DEPENDENCE, CIGARETTES, UNCOMPL 01/29/2019 MARY ANN ZIEGLER MD Ot F32. 9 MAJOR DEPRESSIVE DISORDER, SINGLE EPISOD 01/29/2019 MARY ANN ZIEGLER MD Ot F41. 9 ANXIETY DISORDER, UNSPECIFIED 01/29/2019 MARY ANN ZIEGLER MD, Ot G89. 18 OTHER ACUTE POSTPROCEDURAL PAIN 01/29/2019 MARY ANN ZIEGLER MD Ot R10. 9 UNSPECIFIED ABDOMINAL PAIN 01/29/2019 MARY ANN ZIEGLER MD Ot R11. 10 VOMITING, UNSPECIFIED 01/29/2019 MARY ANN ZIEGLER MD Ot Z87.440 PERSONAL HISTORY OF URINARY (TRACT) INFE 01/29/2019 MARY ANN ZIEGLER MD Ot Z88. 1 ALLERGY STATUS TO OTHER ANTIBIOTIC AGENT 01/29/2019 MARY ANN ZIEGLER MD Ot Z90. 49 ACQUIRED ABSENCE OF OTHER SPECIFIED PART 01/29/2019 MARY ANN ZIEGLER MD Ot Z90. 89 ACQUIRED ABSENCE OF OTHER ORGANS 01/31/2019 MARY ANN ZIEGLER MD Ot F17.210 NICOTINE DEPENDENCE, CIGARETTES, UNCOMPL 01/31/2019 MARY ANN ZIEGLER MD Ot F32. 9 MAJOR DEPRESSIVE DISORDER, SINGLE EPISOD 01/31/2019 MARY ANN ZIEGLER MD Ot F41. 9 ANXIETY DISORDER, UNSPECIFIED 01/31/2019 MARY ANN ZIEGLER MD, Ot G89. 18 OTHER ACUTE POSTPROCEDURAL PAIN 01/31/2019 MARY ANN ZIEGLER MD Ot R10. 9 UNSPECIFIED ABDOMINAL PAIN 01/31/2019 MARY ANN ZIEGLER MD Ot R11. 10 VOMITING, UNSPECIFIED 01/31/2019 MARY ANN ZIEGLER MD Ot Z87.440 PERSONAL HISTORY OF URINARY (TRACT) INFE 01/31/2019 MARY ANN ZIEGLER MD Ot Z88. 1 ALLERGY STATUS TO OTHER ANTIBIOTIC AGENT 01/31/2019 MARY ANN ZIEGLER MD Ot Z90. 49 ACQUIRED ABSENCE OF OTHER SPECIFIED PART 01/31/2019 MARY ANN ZIEGLER MD Ot Z90. 89 ACQUIRED ABSENCE OF OTHER ORGANS 01/31/2019 Brown, Jesus W 338.18 OTHER ACUTE POSTOPERATIVE PAIN 01/31/2019 Brown, Jesus W 787.01 NAUSEA WITH VOMITING 01/31/2019 Brown, Jesus W G89.18 OTHER ACUTE POSTPROCEDURAL PAIN 01/31/2019 Brown, Jesus W H69.90 UNSPECIFIED EUSTACHIAN TUBE DISORDER, UNSPECIFIED EAR 01/31/2019 Brown, Jesus W L25.5 UNSPECIFIED CONTACT DERMATITIS DUE TO PLANTS, EXCEPT FOOD 01/31/2019 Jesus Fatima W R11.2 NAUSEA WITH VOMITING, UNSPECIFIED 02/15/2019 COREY PENDLETON APRN Ot F32 .9 MAJOR DEPRESSIVE DISORDER, SINGLE EPISOD 02/15/2019 COREY PENDLETON RUG MEASURER Ot F41 .9 ANXIETY DISORDER, UNSPECIFIED 02/15/2019 COREY PENDLETON RUG MEASURER Ot L76.34 POSTPROC SEROMA OF SKIN, SUBCU FOLLOWING 02/15/2019 COREY PENDLETON APRN Ot R10 .9 UNSPECIFIED ABDOMINAL PAIN 02/15/2019 COREY PENDLETON APRN Ot Z32.01 ENCOUNTER FOR TEST, RESULT POS 02/15/2019 COREY PENDLETON APRN Ot Z77.22 CNTCT W AND EXPSR TO ENVIRON TOBACCO SMO 02/15/2019 COREY PENDLETON APRN Ot Z87.440 PERSONAL HISTORY OF URINARY (TRACT) INFE 02/15/2019 COREY PENDLETON APRN Ot Z88 .1 ALLERGY STATUS TO OTHER ANTIBIOTIC AGENT 02/15/2019 COREY PENDLETON APRN Ot Z90.49 ACQUIRED ABSENCE OF OTHER SPECIFIED PART 02/15/2019 COREY PENDLETON APRN Ot Z90.89 ACQUIRED ABSENCE OF OTHER ORGANS 02/15/2019 COREY PENDLETON APRN Ot Z98.890 OTHER SPECIFIED POSTPROCEDURAL STATES 02/17/2019 AIMEE VELAP Ot F32.9 MAJOR DEPRESSIVE DISORDER, SINGLE EPISOD 02/17/2019 AIMEE VELA BIODIESEL PLANT SUPERINTENDENT Ot F41.9 ANXIETY DISORDER, UNSPECIFIED 02/17/2019 AIMEE VELA BIODIESEL PLANT SUPERINTENDENT Ot O99.341 OTH MENTAL DISORDERS COMPLICATING PREGNA 02/17/2019 DANE AIMEE BIODIESEL PLANT SUPERINTENDENT Ot O9A.211 INJ/POISN/OTH CONSEQ OF EXTERNAL CAUSES 02/17/2019 AIMEE VELA BIODIESEL PLANT SUPERINTENDENT Ot R10.9 UNSPECIFIED ABDOMINAL PAIN 02/17/2019 AIMEE VELA BIODIESEL PLANT SUPERINTENDENT Ot S30.1XXD CONTUSION OF ABDOMINAL WALL, SUBSEQUENT 02/17/2019 AIMEE VELA BIODIESEL PLANT SUPERINTENDENT Ot X58.XXXD EXPOSURE TO OTHER SPECIFIED FACTORS, SUB 02/17/2019 AIMEE VELA BIODIESEL PLANT SUPERINTENDENT Ot Z3A.01 LESS THAN 8 WEEKS GESTATION OF 02/17/2019 AIMEE VELA BIODIESEL PLANT SUPERINTENDENT Ot Z77.22 CNTCT W AND EXPSR TO ENVIRON TOBACCO SMO 02/17/2019 DANE, AIMEE BIODIESEL PLANT SUPERINTENDENT Ot Z87.440 PERSONAL HISTORY OF URINARY (TRACT) INFE 02/17/2019 AIMEE VELAP Ot Z87.891 PERSONAL HISTORY OF NICOTINE DEPENDENCE 02/17/2019 AIMEE VELAP Ot Z88.1 ALLERGY STATUS TO OTHER ANTIBIOTIC AGENT 02/17/2019 AIMEE VELAP Ot Z90.49 ACQUIRED ABSENCE OF OTHER SPECIFIED PART 02/17/2019 AIMEE VELAP Ot Z90.89 ACQUIRED ABSENCE OF OTHER ORGANS 02/17/2019 AIMEE VELAP Ot Z98.890 OTHER SPECIFIED POSTPROCEDURAL STATES 02/20/2019 COREY PENDLETON APRN Ot F32 .9 MAJOR DEPRESSIVE DISORDER, SINGLE EPISOD 02/20/2019 COREY PENDLETON APRN Ot F41 .9 ANXIETY DISORDER, UNSPECIFIED 02/20/2019 [...] MAJOR DEPRESSIVE DISORDER, SINGLE EPISOD 02/24/2019 AIMEE VELAP Ot F41.9 ANXIETY DISORDER, UNSPECIFIED 02/24/2019 AIMEE VELAP Ot O99.341 OTH MENTAL DISORDERS COMPLICATING PREGNA 02/24/2019 AIMEE VELAP Ot O9A.211 INJ/POISN/OTH CONSEQ OF EXTERNAL CAUSES 02/24/2019 DANE, AIMEE BIODIESEL PLANT SUPERINTENDENT Ot R10.9 UNSPECIFIED ABDOMINAL PAIN 02/24/2019 AIMEE VELA BIODIESEL PLANT SUPERINTENDENT Ot S30.1XXD CONTUSION OF ABDOMINAL WALL, SUBSEQUENT 02/24/2019 AIMEE VELA BIODIESEL PLANT SUPERINTENDENT Ot X58.XXXD EXPOSURE TO OTHER SPECIFIED FACTORS, SUB 02/24/2019 AIMEE VELA BIODIESEL PLANT SUPERINTENDENT Ot Z3A.01 LESS THAN 8 WEEKS GESTATION OF 02/24/2019 AIMEE VELA BIODIESEL PLANT SUPERINTENDENT Ot Z77.22 CNTCT W AND EXPSR TO ENVIRON TOBACCO SMO 02/24/2019 DANE, AIMEE BIODIESEL PLANT SUPERINTENDENT Ot Z87.440 PERSONAL HISTORY OF URINARY (TRACT) INFE 02/24/2019 DANE AIMEE BIODIESEL PLANT SUPERINTENDENT Ot Z87.891 PERSONAL HISTORY OF NICOTINE DEPENDENCE 02/24/2019 DANE AIMEE BIODIESEL PLANT SUPERINTENDENT Ot Z88.1 ALLERGY STATUS TO OTHER ANTIBIOTIC AGENT 02/24/2019 DANE AIMEE BIODIESEL PLANT SUPERINTENDENT Ot Z90.49 ACQUIRED ABSENCE OF OTHER SPECIFIED PART 02/24/2019 DANE AIMEE BIODIESEL PLANT SUPERINTENDENT Ot Z90.89 ACQUIRED ABSENCE OF OTHER ORGANS 02/24/2019 DANE AIMEE BIODIESEL PLANT SUPERINTENDENT Ot Z98.890 OTHER SPECIFIED POSTPROCEDURAL STATES 02/26/2019 AIMEE VELA BIODIESEL PLANT SUPERINTENDENT Ot F32.9 MAJOR DEPRESSIVE DISORDER, SINGLE EPISOD 02/26/2019 DANE AIMEE BIODIESEL PLANT SUPERINTENDENT Ot F41.9 ANXIETY DISORDER, UNSPECIFIED 02/26/2019 DANE AIMEE BIODIESEL PLANT SUPERINTENDENT Ot O99.341 OTH MENTAL DISORDERS COMPLICATING PREGNA 02/26/2019 DANE AIMEE BIODIESEL PLANT SUPERINTENDENT Ot O9A.211 INJ/POISN/OTH CONSEQ OF EXTERNAL CAUSES 02/26/2019 DANE AIMEE BIODIESEL PLANT SUPERINTENDENT Ot R10.9 UNSPECIFIED ABDOMINAL PAIN 02/26/2019 AIMEE VELA BIODIESEL PLANT SUPERINTENDENT Ot S30.1XXD CONTUSION OF ABDOMINAL WALL, SUBSEQUENT 02/26/2019 DANE AIMEE BIODIESEL PLANT SUPERINTENDENT Ot X58.XXXD EXPOSURE TO OTHER SPECIFIED FACTORS, SUB 02/26/2019 DANE AIMEE BIODIESEL PLANT SUPERINTENDENT Ot Z3A.01 LESS THAN 8 WEEKS GESTATION OF 02/26/2019 DANE AIMEE BIODIESEL PLANT SUPERINTENDENT Ot Z77.22 CNTCT W AND EXPSR TO ENVIRON TOBACCO SMO 02/26/2019 DANE, AIMEE BIODIESEL PLANT SUPERINTENDENT Ot Z87.440 PERSONAL HISTORY OF URINARY (TRACT) INFE 02/26/2019 DANE AIMEE BIODIESEL PLANT SUPERINTENDENT Ot Z87.891 PERSONAL HISTORY OF NICOTINE DEPENDENCE 02/26/2019 AIMEE VELA Ot Z88.1 ALLERGY STATUS TO OTHER ANTIBIOTIC AGENT 02/26/2019 AIMEE VELA Ot Z90.49 ACQUIRED ABSENCE OF OTHER SPECIFIED PART 02/26/2019 AIMEE VELA Ot Z90.89 ACQUIRED ABSENCE OF OTHER ORGANS 02/26/2019 AIMEE VELA Ot Z98.890 OTHER SPECIFIED POSTPROCEDURAL STATES 03/25/2019 TRI DORMAN MD Ot F32. 9 MAJOR DEPRESSIVE DISORDER, SINGLE EPISOD 03/25/2019 TRI DORMAN MD Ot F41. 9 ANXIETY DISORDER, UNSPECIFIED 03/25/2019 TRI DORMAN MD Ot G89. 29 OTHER CHRONIC PAIN 03/25/2019 TRI DORMAN MD Ot M54. 9 DORSALGIA, UNSPECIFIED 03/25/2019 TRI DORMAN MD Ot O21. 0 MILD HYPEREMESIS GRAVIDARUM 03/25/2019 TRI DORMAN MD Ot O23. 41 UNSP INFCT OF URINARY TRACT IN 03/25/2019 TRI DORMAN MD Ot O26.891 OTH RELATED CONDITIONS, FIRST 03/25/2019 TRI DORMAN MD Ot O99.341 OTH MENTAL DISORDERS COMPLICATING PREGNA 03/25/2019 TRI DORMAN MD Ot Z3A. 08 8 WEEKS GESTATION OF 03/25/2019 TRI DORMAN MD Ot Z79.899 OTHER IMPORT/EXPORT CLERK (CURRENT) DRUG THERAPY 03/25/2019 TRI DORMAN MD Ot Z87.891 PERSONAL HISTORY OF NICOTINE DEPENDENCE 03/25/2019 TRI DORMAN MD Ot Z88. 1 ALLERGY STATUS TO OTHER ANTIBIOTIC AGENT 03/25/2019 TRI DORMAN MD Ot Z90. 89 ACQUIRED ABSENCE OF OTHER ORGANS 03/25/2019 TRI DORMAN MD Ot F32. 9 MAJOR DEPRESSIVE DISORDER, SINGLE EPISOD 03/25/2019 TRI DORMAN MD Ot F41. 9 ANXIETY DISORDER, UNSPECIFIED 03/25/2019 TRI DORMAN MD Ot G89. 29 OTHER CHRONIC PAIN 03/25/2019 TRI DORMAN MD Ot M54. 9 DORSALGIA, UNSPECIFIED 03/25/2019 TRI DORMAN MD Ot O21. 0 MILD HYPEREMESIS GRAVIDARUM 03/25/2019 TRI DORMAN MD Ot O23. 41 UNSP INFCT OF URINARY TRACT IN 03/25/2019 TRI DORMAN MD Ot O26.891 OTH RELATED CONDITIONS, FIRST 03/25/2019 TRI DORMAN MD Ot O99.341 OTH MENTAL DISORDERS COMPLICATING PREGNA 03/25/2019 TRI DORMAN MD Ot Z3A. 08 8 WEEKS GESTATION OF 03/25/2019 TRI DORMAN MD Ot Z79.899 OTHER [facility] (CURRENT) DRUG THERAPY 03/25/2019 TRI DORMAN MD Ot Z87.891 PERSONAL HISTORY OF NICOTINE DEPENDENCE 03/25/2019 TRI DORMAN MD Ot Z88. 1 ALLERGY STATUS TO OTHER ANTIBIOTIC AGENT 03/25/2019 TRI DORMAN MD Ot Z90. 89 ACQUIRED ABSENCE OF OTHER ORGANS 05/20/2019 COREY PENDLETON APRN Ot O21 .0 MILD HYPEREMESIS GRAVIDARUM 05/20/2019 COREY PENDLETON APRN Ot R11 .2 NAUSEA WITH VOMITING, UNSPECIFIED 05/20/2019 COREY PENDLETON APRN Ot Z3A.16 16 WEEKS GESTATION OF 05/20/2019 COREY PENDLETON APRN Ot Z87.891 PERSONAL HISTORY OF NICOTINE DEPENDENCE 05/20/2019 COREY PENDLETON APRN Ot Z88 .1 ALLERGY STATUS TO OTHER ANTIBIOTIC AGENT 05/23/2019 COREY PENDLETON APRN Ot O21 .0 MILD HYPEREMESIS GRAVIDARUM 05/23/2019 COREY PENDLETON APRN Ot R11 .2 NAUSEA WITH VOMITING, UNSPECIFIED 05/23/2019 COREY PENDLETON APRN Ot Z3A.16 16 WEEKS GESTATION OF 05/23/2019 COREY PENDLETON APRN Ot Z87.891 PERSONAL HISTORY OF NICOTINE DEPENDENCE 05/23/2019 COREY PENDLETON APRN Ot Z88 .1 ALLERGY STATUS TO OTHER ANTIBIOTIC AGENT 06/05/2019 DEBBIE RASHEED DO Ot F32.9 MAJOR DEPRESSIVE DISORDER, SINGLE EPISOD 06/05/2019 DEBBIE RASHEED DO Ot H66.92 OTITIS MEDIA, UNSPECIFIED, LEFT EAR 06/05/2019 KATHYA MCMANUS, DEBBIE Boyle Ot J20.9 ACUTE BRONCHITIS, UNSPECIFIED 06/05/2019 KATHYA MCMANUS, DEBBIE Boyle Ot M94.0 CHONDROCOSTAL JUNCTION SYNDROME [TIETZE] 06/05/2019 KATHYA MCMANUS, DEBBIE Boyle Ot R0 5 COUGH 06/05/2019 KATHYA MCMANUS, DEBBIE Boyle Ot Z87.19 PERSONAL HISTORY OF OTHER DISEASES OF TH 06/05/2019 KATHYA MCMANUS, DEBBIE Boyle Ot Z87.440 PERSONAL HISTORY OF URINARY (TRACT) INFE 06/05/2019 KATHYA MCMANUS, DEBBIE Boyle Ot Z90.49 ACQUIRED ABSENCE OF OTHER SPECIFIED PART 06/05/2019 KATHYA MCMANUS, DEBBIE Boyle Ot Z90.89 ACQUIRED ABSENCE OF OTHER ORGANS 06/18/2019 MEEKS JOBY MCMANUS C Ot O44.2 2 PARTIAL PLACENTA PREVIA NOS OR WITHOUT H 06/18/2019 MEEKS DO JOBY C Ot Z36.9 ENCOUNTER FOR SCREENING, UNSPE 06/18/2019 JEANNA MCMANUS JOBY C Ot Z3A.2 0 20 WEEKS GESTATION OF 06/22/2019 JEANNA MCMANUS JOBY C Ot O44.2 2 PARTIAL PLACENTA PREVIA NOS OR WITHOUT H 06/22/2019 MEEKS DO JOBY C Ot Z36.9 ENCOUNTER FOR SCREENING, UNSPE 06/22/2019 JEANNA DO JOBY C Ot Z3A.2 0 20 WEEKS GESTATION OF 07/22/2019 JEANNA MCMANUS JOBY C Ot O44.4 2 LOW LYING PLACENTA NOS OR WITHOUT HEMOR, 07/22/2019 JOBY MEEKS DO C Ot Z04.8 9 ENCOUNTER FOR EXAMINATION AND OBSERVATIO 07/22/2019 JEANNA MCMANUS JOBY C Ot Z3A.2 2 22 WEEKS GESTATION OF 08/26/2019 ESTEPHANIA MCNAMARA MD Ot 634.11 SPON ABORT W HEMORR-INC 09/02/2019 ESTEPHANIA MCNAMARA MD Ot 634.11 SPON ABORT W HEMORR-INC 09/15/2019 JOBY MEEKS DO Ot O26.8 43 UTERINE SIZE-DATE DISCREPANCY, THIRD TRI 09/15/2019 JOBY MEEKS DO Ot O36.8130 DECREASED MOVEMENTS, THIRD TRIMEST 09/15/2019 JOBY MEEKS DO Ot Z3A.3 3 33 WEEKS GESTATION OF 09/18/2019 JOBY MEEKS DO Ot O26.8 43 UTERINE SIZE-DATE DISCREPANCY, THIRD TRI 09/18/2019 JOBY MEEKS DO Ot O36.8130 DECREASED MOVEMENTS, THIRD TRIMEST 09/18/2019 JOBY MEEKS DO Ot Z3A.3 3 33 WEEKS GESTATION OF Procedures There is no data. Results Test [...] 32.7 g/dL 32.0-36.0 MCV 88.7 fL 80.0-97.0 [place]% 8.4 % 0.0-12.0 MPV 11.5 fL 7.4-10.0 David% 45.6 % 37.0-80.0 Plt 280 K/uL 150-400 RBC 4.86 M/uL 3.60-5.00 RDW 13.5 % 11.6-14.8 WBC 6.33 K/uL 5.00-10.00 David 2.89 K/uL 2.00-6.90 [place] 0.5 K/uL 0.0-0.9 Baso 0.0 K/uL 0.0-0.2 MRSA Screen - 11/19/18 19:01 FINAL CULTURE RESULTS MRSA POSITIVE Nasal Culture MEDIA PLATED Setup at 19:19 on 11/19/2018 Gram stain microscopy - 01/01/19 21:34 Gram stain microscopy No bacteria seen NRG Bacteria identification in wound by cult ure - 01/01/19 21:34 Bacteria identification in wound by culture [id number] NRG FREE TEXT EXTERNAL SUSCEPTIBILITY REPORTED [...] - 01/27/19 14:20 Surg Path Sent to [facility] Pathology Other Culture - 01/27/19 14:25 PRELIM [...] Negative Urine-Blood Trace-intact Negative Urine-Color Yellow Colorless-Lt. [place] ow Urine-Epithelial Cells 5-10/HPF Urine-Glucose Negative Negative Urine-Ketones 4+ Negative Urine-Leukocytes Negative Negative Urine-Mucus 1+ Urine-Nitrite Negative Negative Urine-Other Urine Saved if Culture Need ed (48hrs from time of collection) Urine-pH 6.0 5-8.5 Urine-Protein 1+ Negative Urine-RBC 2-5/HPF Urine-Specific [place] >=1.030 1.000-1 .030 Urine-WBC 0-2/HPF Urobilinogen 0.2 [...] choriogonadotropin measurement (units/ volume) 51 m[iU]/mL <5 Complete blood count (CBC) with automate d white blood cell (WBC) differential - 03/23/19 14:50 Blood leukocytes automated count (number/volume) 15.9 10*3/uL 4.3-11.0 Blood erythrocytes automated count (number/volume) 4.58 10*6/uL 4.35-5.85 Venous blood hemoglobin measurement (mass/volume) 13.3 g/dL 11.5-16.0 Blood hematocrit (volume fraction) 40 % 35-52 Automated erythrocyte mean corpuscular volume 86 [ foz_us] 80-99 Automated erythrocyte mean corpuscular h emoglobin (mass per erythrocyte) 29 pg 25-34 Automated erythrocyte mean corpuscular h emoglobin concentration measurement (mass/volume) 34 g/dL 32-36 Automated erythrocyte distribution width ratio 13. 0 % 10.0- 14.5 Automated blood platelet count (count/volume) 385 10*3/uL 130-400 Automated blood platelet mean volume measurement 11.1 [foz_us] 7.4-10.4 Automated blood neutrophils/100 leukocytes 89 % 42-75 Automated blood lymphocytes/100 leukocytes 7 % 12-44 Blood monocytes/100 leukocytes 4 % 0-12 Automated blood eosinophils/100 leukocytes 0 % 0-10 Automated blood basophils/100 leukocytes 0 % 0-10 Blood neutrophils automated count (number/volume) 14.2 10*3 1.8-7.8 Blood lymphocytes automated count (number/volume) 1.1 10*3 1.0-4.0 Blood monocytes automated count (number/volume) 0. 6 10*3 0.0-1.0 Automated eosinophil count 0.0 10*3/uL 0 .0-0.3 Automated blood basophil count (count/volume) 0.0 10*3/uL 0.0-0.1 Comprehensive metabolic panel - 03/23/19 14:50 Serum or plasma sodium measurement (moles/volume) 138 mmol/L 135-145 Serum or plasma potassium measurement (moles/volume) 3.7 mmol/L 3.6-5.0 Serum or plasma chloride measurement (moles/volume) 103 mmol/L 98-107 Carbon dioxide 20 mmol/L 21-32 Serum or plasma anion gap determination (moles/volume) 15 mmol/L 5-14 Serum or plasma urea nitrogen measurement (mass/volume ) 8 mg/dL 7-18 Serum or plasma creatinine measurement (mass/volume) 0.63 mg/dL 0.60-1.30 Serum or plasma urea nitrogen/creatinine mass ratio 13 NRG Serum or plasma creatinine measurement w ith calculation of estimated glomerular filtration rate > NRG Serum or plasma glucose measurement (mass/volume) 101 mg/dL 70-105 Serum or plasma calcium measurement (mass/volume) 9.5 mg/dL 8.5-10.1 Serum or plasma total bilirubin measurement (mass/volu me) 0.2 mg/dL 0.1-1.0 Serum or plasma alkaline phosphatase maureen surement (enzymatic activity/volume) 57 U/L 40-136 Serum or plasma aspartate aminotransfera se measurement (enzymatic activity/volume) 12 U/L 5-34 Serum or plasma alanine aminotransferase measurement (enzymatic activity/volume) 8 U/L 0-55 Serum or plasma protein measurement (mass/volume) 7.7 g/dL 6.4-8.2 Serum or plasma albumin measurement (mass/volume) 4.3 g/dL 3.2-4.5 CALCIUM CORRECTED 9.3 mg/dL 8.5-10.1 Manual absolute plasma cell count - 08/05 14:50 Blood monocytes/100 leukocytes 3 % NRG Manual blood segmented neutrophils/100 leukocytes 82 % NRG Blood band neutrophils/100 leukocytes 3 % NRG Manual blood lymphocytes/100 leukocytes 11 % NRG Manual eosinophils/100 leukocytes in nose 0 % NRG Manual blood basophils/100 leukocytes 0 % NRG Manual blood metamyelocytes/100 leukocytes 1 % NRG Serum or plasma choriogonadotropin measu rement (units/volume) - 03/23/19 14:50 Serum or plasma choriogonadotropin measurement (units/ volume) 084176 m[iU]/mL <5 Complete urinalysis with reflex to cultu re - 03/23/19 16:05 Urine color determination YELLOW NRG Urine clarity determination SLT CLOUDY NRG Urine pH measurement by test strip 6.0 5-9 Specific gravity of urine by test strip 1.025 1.016-1.022 Urine protein assay by test strip, semi-quantitative NEGATIVE NEGATIVE Urine glucose detection by automated test strip NE GATIVE NEGATIVE Erythrocytes detection in urine sediment by light micr oscopy NEGATIVE NEGATIVE Urine ketones detection by automated test strip 3+ NEGATIVE Urine nitrite detection by test strip NEGATIVE NEGATIVE Urine total bilirubin detection by test strip NEGA TIVE NEGATIVE Urine urobilinogen measurement by automated test strip (mass/volume) 0.2 mg/dL < = 1.0 Urine leukocyte esterase detection by dipstick TRA CE NEGATIVE Automated urine sediment erythrocyte cou nt by microscopy (number/high power field) NONE NRG Automated urine sediment leukocyte count by microscopy (number/high power field) [HPF] NRG Bacteria detection in urine sediment by light microsco py FEW NRG Squamous epithelial cells detection in u rine sediment by light microscopy 2-5 NRG Crystals detection in urine sediment by light microsco py NONE NRG Casts detection in urine sediment by light microscopy NONE NRG Mucus detection in urine sediment by light microscopy SMALL NRG Complete urinalysis with reflex to culture YES NRG Urine drug screening test - 03/23/19 16: 05 Urine phencyclidine detection by screening method NEGATIVE NEGATIVE Urine benzodiazepines detection by screening method NEGATIVE NEGATIVE Urine cocaine detection NEGATIVE NEGATI VE [...] TIVE Urine propoxyphene detection NEGATIVE N EGATIVE Bacterial urine culture - 03/23/19 16:05 Bacterial urine culture 3 OR MORE NRG COLONY COUNT 50,000 CFU/ML NRG FTX;REPORTABLE (GRAM POSITIVE) SUGGESTING PROBABLE NRG FREE TEXT ENTRY 2 COLLECTION CONTAMINATION WITH SK IN OZZIE NRG Complete blood count (CBC) with automate d white blood cell (WBC) differential - 03/24/19 14:13 Blood leukocytes automated count (number/volume) 8.5 10*3/uL 4.3-11.0 Blood erythrocytes automated count (number/volume) 3.83 10*6/uL 4.35-5.85 Venous blood hemoglobin measurement (mass/volume) 10.7 g/dL 11.5-16.0 Blood hematocrit (volume fraction) 33 % 35-52 Automated erythrocyte mean corpuscular volume 86 [ foz_us] 80-99 Automated erythrocyte mean corpuscular h emoglobin (mass per erythrocyte) 28 pg 25-34 Automated erythrocyte mean corpuscular h emoglobin concentration measurement (mass/volume) 33 g/dL 32-36 Automated erythrocyte distribution width ratio 13. 0 % 10.0- 14.5 Automated blood platelet count (count/volume) 273 10*3/uL 130-400 Automated blood platelet mean volume measurement 10.5 [foz_us] 7.4-10.4 Automated blood neutrophils/100 leukocytes 65 % 42-75 Automated blood lymphocytes/100 leukocytes 27 % 12-44 Blood monocytes/100 leukocytes 7 % 0-12 Automated blood eosinophils/100 leukocytes 1 % 0-10 Automated blood basophils/100 leukocytes 1 % 0-10 Blood neutrophils automated count (number/volume) 5.5 10*3 1.8-7.8 Blood lymphocytes automated count (number/volume) 2.3 10*3 1.0-4.0 Blood monocytes automated count (number/volume) 0. 6 10*3 0.0-1.0 Automated eosinophil count 0.1 10*3/uL 0 .0-0.3 Automated blood basophil count (count/volume) 0.0 10*3/uL 0.0-0.1 Whole blood basic metabolic panel - 09/05 14:13 Serum or plasma sodium measurement (moles/volume) 138 mmol/L 135-145 Serum or plasma potassium measurement (moles/volume) 4.0 mmol/L 3.6-5.0 Serum or plasma chloride measurement (moles/volume) 113 mmol/L 98-107 Carbon dioxide 17 mmol/L 21-32 Serum or plasma anion gap determination (moles/volume) 8 mmol/L 5-14 Serum or plasma urea nitrogen measurement (mass/volume ) 4 mg/dL 7-18 Serum or plasma creatinine measurement (mass/volume) 0.59 mg/dL 0.60-1.30 Serum or plasma urea nitrogen/creatinine mass ratio 7 NRG Serum or plasma creatinine measurement w ith calculation of estimated glomerular filtration rate > NRG Serum or plasma glucose measurement (mass/volume) 71 mg/dL 70-105 Serum or plasma calcium measurement (mass/volume) 8.4 mg/dL 8.5-10.1 Stool bacteria identification by culture - 03/24/19 15:05 FREE TEXT EXTERNAL PRESUMPTIVE USUAL OZZIE NRG QUANTITY OF GROWTH . NRG Stool bacteria identification by culture PROGRESS NRG Complete blood count (CBC) with automate d white blood cell (WBC) differential - 05/20/19 14:50 Blood leukocytes automated count (number/volume) 12.0 10*3/uL 4.3-11.0 Blood erythrocytes automated count (number/volume) 4.25 10*6/uL 4.35-5.85 Venous blood hemoglobin measurement (mass/volume) 12.1 g/dL 11.5-16.0 Blood hematocrit (volume fraction) 37 % 35-52 Automated erythrocyte mean corpuscular volume 86 [ foz_us] 80-99 Automated erythrocyte mean corpuscular h emoglobin (mass per erythrocyte) 28 pg 25-34 Automated erythrocyte mean corpuscular h emoglobin concentration measurement (mass/volume) 33 g/dL 32-36 Automated erythrocyte distribution width ratio 14. 0 % 10.0- 14.5 Automated blood platelet count (count/volume) 312 10*3/uL 130-400 Automated blood platelet mean volume measurement 10.5 [foz_us] 7.4-10.4 Automated blood neutrophils/100 leukocytes 80 % 42-75 Automated blood lymphocytes/100 leukocytes 14 % 12-44 Blood monocytes/100 leukocytes 6 % 0-12 Automated blood eosinophils/100 leukocytes 0 % 0-10 Automated blood basophils/100 leukocytes 0 % 0-10 Blood neutrophils automated count (number/volume) 9.6 10*3 1.8-7.8 Blood lymphocytes automated count (number/volume) 1.7 10*3 1.0-4.0 Blood monocytes automated count (number/volume) 0. 7 10*3 0.0-1.0 Automated eosinophil count 0.0 10*3/uL 0 .0-0.3 Automated blood basophil count (count/volume) 0.0 10*3/uL 0.0-0.1 Complete urinalysis with reflex to cultu re - 05/20/19 14:50 Urine color determination YELLOW NRG Urine clarity [...] leukocyte count by microscopy (number/high power field) [HPF] NRG Bacteria detection in urine sediment by light microsco py TRACE NRG Squamous epithelial cells detection in u rine sediment by light microscopy 2-5 NRG Crystals detection in urine sediment by light microsco py NONE NRG Casts detection in urine sediment by light microscopy NONE NRG Mucus detection in urine sediment by light microscopy NEGATIVE NRG Complete urinalysis with reflex to culture NO NRG Comprehensive metabolic panel - 05/20/19 14:50 Serum or plasma sodium measurement (moles/volume) 137 mmol/L 135-145 Serum or plasma potassium measurement (moles/volume) 3.9 mmol/L 3.6-5.0 Serum or plasma chloride measurement (moles/volume) 106 mmol/L 98-107 Carbon dioxide 19 mmol/L 21-32 Serum or plasma anion gap determination (moles/volume) 12 mmol/L 5-14 Serum or plasma urea nitrogen measurement (mass/volume ) 8 mg/dL 7-18 Serum or plasma creatinine measurement (mass/volume) 0.67 mg/dL 0.60-1.30 Serum or plasma urea nitrogen/creatinine mass ratio 12 NRG Serum or plasma creatinine measurement w ith calculation of estimated glomerular filtration rate > NRG Serum or plasma glucose measurement (mass/volume) 100 mg/dL 70-105 Serum or plasma calcium measurement (mass/volume) 9.1 mg/dL 8.5-10.1 Serum or plasma total bilirubin measurement (mass/volu me) 0.2 mg/dL 0.1-1.0 Serum or plasma alkaline phosphatase maureen surement (enzymatic activity/volume) 47 U/L 40-136 Serum or plasma aspartate aminotransfera se measurement (enzymatic activity/volume) 18 U/L 5-34 Serum or plasma alanine aminotransferase measurement (enzymatic activity/volume) 17 U/L 0-55 Serum or plasma protein measurement (mass/volume) 7.4 g/dL 6.4-8.2 Serum or plasma albumin measurement (mass/volume) 3.7 g/dL 3.2-4.5 CALCIUM CORRECTED 9.3 mg/dL 8.5-10.1 Influenza virus A and B antigen detectio n - 05/20/19 14:50 FLU RESULT NEGATIVE FOR INFLUENZA A AND B ANTIGENS BY [facility] COVID-19 (QUEST) - 07/28/19 16:26 Complete urinalysis with reflex to cultu re - 08/26/19 13:33 Urine color determination YELLOW NRG Urine clarity determination CLEAR NR G Urine pH measurement by test strip 6.0 5-9 Specific gravity of urine by test strip 1.020 1.016-1.022 Urine protein assay by test strip, semi-quantitative NEGATIVE NEGATIVE Urine glucose detection by automated test strip NE GATIVE NEGATIVE Erythrocytes detection in urine sediment by light micr oscopy NEGATIVE NEGATIVE Urine ketones detection by automated test strip 2+ NEGATIVE Urine nitrite detection by test strip NEGATIVE NEGATIVE Urine total bilirubin detection by test strip NEGA TIVE NEGATIVE Urine urobilinogen measurement by automated test strip (mass/volume) 0.2 mg/dL < = 1.0 Urine leukocyte esterase detection by dipstick TRA CE NEGATIVE Automated urine sediment erythrocyte cou nt by microscopy (number/high power field) NONE NRG Automated urine sediment leukocyte count by microscopy (number/high power field) [HPF] NRG Bacteria detection in urine sediment by light microsco py FEW NRG Squamous epithelial cells detection in u rine sediment by light microscopy 2-5 NRG Crystals detection in urine sediment by light microsco py NONE NRG Casts detection in urine sediment by light microscopy NONE NRG Mucus detection in urine sediment by light microscopy SMALL NRG Complete urinalysis with reflex to culture YES NRG Bacterial urine culture - 08/26/19 13:33 Bacterial urine culture 3 OR MORE NRG COLONY COUNT 40,000 CFU/ML NRG SUSCEPTIBILITY GRAM POSITIVES, SUGGESTING PROBABLE NRG MRSA SCREEN COLLECTION CONTAMINATION WITH SKIN PONCHO R NRG RAPID ID NO SUSCEPTIBILITY PERFORMED N RG Blood CBC with ordered manual differenti al panel - 08/26/19 15:35 Blood leukocytes automated count (number/volume) 9.4 10*3/uL 4.3-11.0 Blood erythrocytes automated count (number/volume) 3.91 10*6/uL 4.35-5.85 Venous blood hemoglobin measurement (mass/volume) 9.8 g/dL 11.5-16.0 Blood hematocrit (volume fraction) 31 % 35-52 Automated erythrocyte mean corpuscular volume 80 [ foz_us] 80-99 Automated erythrocyte mean corpuscular h emoglobin (mass per erythrocyte) 25 pg 25-34 Automated erythrocyte mean corpuscular h emoglobin concentration measurement (mass/volume) 31 g/dL 32-36 Automated erythrocyte distribution width ratio 14. 0 % 10.0- 14.5 Automated blood platelet count (count/volume) 252 10*3/uL 130-400 Automated blood platelet mean volume measurement 10.7 [foz_us] 7.4-10.4 Automated blood neutrophils/100 leukocytes 75 % 42-75 Automated blood lymphocytes/100 leukocytes 15 % 12-44 Blood monocytes/100 leukocytes 7 % NRG Automated blood eosinophils/100 leukocytes 0 % 0-10 Automated blood basophils/100 leukocytes 0 % 0-10 Blood neutrophils automated count (number/volume) 7.1 10*3 1.8-7.8 Blood lymphocytes automated count (number/volume) 1.4 10*3 1.0-4.0 Blood monocytes automated count (number/volume) 0. 9 10*3 0.0-1.0 Automated eosinophil count 0.0 10*3/uL 0 .0-0.3 Automated blood basophil count (count/volume) 0.0 10*3/uL 0.0-0.1 Manual blood segmented neutrophils/100 leukocytes 78 % NRG Blood band neutrophils/100 leukocytes 2 % NRG Manual blood lymphocytes/100 leukocytes 12 % NRG Manual eosinophils/100 leukocytes in nose 1 % NRG Manual blood basophils/100 leukocytes 0 % NRG Blood polychromasia detection by light microscopy SLIGHT NRG Blood anisocytosis detection by light microscopy S LIGHT NRG Blood hypochromia detection by light microscopy SL IGHT NRG Comprehensive metabolic panel - 08/26/19 15:35 Serum or plasma sodium measurement (moles/volume) 136 mmol/L 135-145 Serum or plasma potassium measurement (moles/volume) 3.6 mmol/L 3.6-5.0 Serum or plasma chloride measurement (moles/volume) 109 mmol/L 98-107 Carbon dioxide 17 mmol/L 21-32 Serum or plasma anion gap determination (moles/volume) 10 mmol/L 5-14 Serum or plasma urea nitrogen measurement (mass/volume ) 6 mg/dL 7-18 Serum or plasma creatinine measurement (mass/volume) 0.59 mg/dL 0.60-1.30 Serum or plasma urea nitrogen/creatinine mass ratio 10 NRG Serum or plasma creatinine measurement w ith calculation of estimated glomerular filtration rate > NRG Serum or plasma glucose measurement (mass/volume) 82 mg/dL 70-105 Serum or plasma calcium measurement (mass/volume) 8.5 mg/dL 8.5-10.1 Serum or plasma total bilirubin measurement (mass/volu me) 0.3 mg/dL 0.1-1.0 Serum or plasma alkaline phosphatase maureen surement (enzymatic activity/volume) 102 U/L 40-136 Serum or plasma aspartate aminotransfera se measurement (enzymatic activity/volume) 13 U/L 5-34 Serum or plasma alanine aminotransferase measurement (enzymatic activity/volume) 9 U/L 0-55 Serum or plasma protein measurement (mass/volume) 6.7 g/dL 6.4-8.2 Serum or plasma albumin measurement (mass/volume) 3.4 g/dL 3.2-4.5 CALCIUM CORRECTED 9.0 mg/dL 8.5-10.1 Complete urinalysis with reflex to cultu re - 09/27/19 22:50 Urine color determination YELLOW NRG Urine clarity determination CLEAR NR G Urine pH measurement by test strip 6.0 5-9 Specific gravity of urine by test strip >= 1.016-1.022 Urine protein assay by test strip, semi-quantitative 1+ NEGATIVE Urine glucose detection by automated test strip NE GATIVE NEGATIVE Erythrocytes detection in urine sediment by light micr oscopy NEGATIVE NEGATIVE Urine ketones detection by automated test strip 1+ NEGATIVE Urine nitrite detection by test strip NEGATIVE NEGATIVE Urine total bilirubin detection by test strip 1+ NEGATIVE Urine urobilinogen measurement by automated test strip (mass/volume) 1.0 mg/dL < = 1.0 Urine leukocyte esterase detection by dipstick NEG ATIVE NEGATIVE Automated urine sediment erythrocyte cou nt by microscopy (number/high power field) [HPF] NRG Automated urine sediment leukocyte count by microscopy (number/high power field) [HPF] NRG Bacteria detection in urine sediment by light microsco py MODERATE NRG Squamous epithelial cells detection in u rine sediment by light microscopy 25-50 NRG Crystals detection in urine sediment by light microsco py NONE NRG Casts detection in urine sediment by light microscopy NONE NRG Mucus detection in urine sediment by light microscopy MODERATE NRG Complete urinalysis with reflex to culture CULTURE PENDING NRG Encounters ACCT No. Visit Date/Time Discharge Status Pt. Type Provider Facility Loc./Unit Complaint [id number] 01/31/2019 21:32:00 01/31/2019 23:30: 00 DIS Outpatient [facility] ER [id number] 01/27/2019 00:00:00 01/27/2019 16:15: 00 DIS Outpatient Stephanie Massey [id number] 01/25/2019 14:06:00 01/25/2019 23:59: 00 DIS Outpatient Stephanie Massey [id number] 11/25/2018 00:00:00 11/25/2018 16:03: 00 DIS Outpatient Stephanie Massey [id number] 11/19/2018 18:57:00 11/19/2018 23:59: 00 DIS Outpatient Lucinda Garcia Roland [id number] 11/09/2018 09:20:00 11/09/2018 23:59: 00 DIS Outpatient Jesus Fatima 1724 11/22/2018 11:14:06 Document Registration [id number] 06/01/2016 21:17:00 017 23:13:00 DIS ER ROSY DOCASSIEIR [facility] ED [id number] 11/19/2018 18:57:00 Document Registration [id number] 09/12/2019 10:11:00 23:59:59 CLS Outpatient JOBY MEEKS DO [facility] RAD FUNDAL HEIGHT LOW FOR D ATES, THIRD TRI [id number] 08/26/2019 13:54:00 19:30:00 DIS Outpatient JOBY MEEKS DO [facility] WSo DIARRHEA;ABD PAIN;CRAMP ING [id number] 07/21/2019 09:53:00 23:59:59 CLS Outpatient JOBY MEEKS DO [facility] RAD LOW LYING PLACENTA [id number] 06/16/2019 09:42:00 23:59:59 CLS Outpatient JOBY MEEKS DO [facility] RAD SURVEY [id number] 05/20/2019 14:43:00 16:14:00 DIS Emergency COREY PENDLETON APRN [facility] ER N/V;13 WKS PREG [id number] 03/23/2019 18:36:00 15:00:00 DIS Inpatient TRI DORMAN MD [facility] LDRP HYPEREMESIS GRAVIDARUM [id number] 02/17/2019 19:40:00 21:33:00 DIS Emergency AIMEE VELA [facility] ER ABD PAIN, ABD LUMP [id number] 02/15/2019 11:49:00 15:04:00 DIS Emergency COREY PENDLETON APRN [facility] ER ABD PAIN / SWELLING [id number] 01/29/2019 12:51:00 15:59:00 DIS Emergency MARY ANN ZIEGLER MD [facility] ER FS VOMITING; ABD PAIN POST SURGERY [id number] 01/24/2019 09:07:00 09:41:00 DIS Emergency SADIE DAWSON DO [facility] ER WOUND INFECTION [id number] 01/11/2019 10:26:00 10:55:00 DIS Emergency COREY PENDLETON APRN [facility] ER POST OP - WOUND INFECTI ON - BELLY BUTTON [id number] 01/01/2019 20:41:00 22:45:00 DIS Emergency COREY PENDLETON APRN [facility] ER INFECTED BELLY BUTTON - POST OP [id number] 10/21/2018 21:30:00 23:56:00 DIS Emergency DEBBIE RASHEED DO [facility] ER FS LT EAR PAIN, ABD AND CH EST PAIN FROM COUGH [id number] 06/29/2018 15:38:00 16:19:00 DIS Emergency DIONICIO REEVES MD [facility] ER FS POSS ALLERGIC REACTION TO MEDS [id number] 11/03/2014 23:13:00 01:53:00 DIS Emergency LUISITO OMALLEY MD [facility] ER LEFT SIDED PAIN [id number] 10/17/2014 21:44:00 01:00:00 DIS Emergency KEVIN MCCRAY [facility] ER PAIN/BLOOD IN URINE [id number] 10/15/2014 21:31:00 22:29:00 DIS Emergency DEBBIE RASHEED DO [facility] ER FATIGUE,DIFFICULTY URIN ATING,BILAT SIDE PAIN [id number] 08/28/2014 22:17:00 015 23:34:00 DIS Emergency KEVIN MCCRAY [facility] ER UTI [id number] 07/15/2014 11:37:00 015 17:30:00 DIS Outpatient ESTEPHANIA MCNAMARA MD [facility] SDC PELVIC PAIN;NOEMI NEXAL MASS; POSSIBLE ECTOPIC [id number] 07/01/2014 15:28:00 015 23:59:59 CLS Outpatient ESTEPHANIA MCNAMARA MD [facility] LABNPT Spontaneous abo rtion, complicated by delayed or ex [id number] 06/28/2014 22:13:00 23:39:00 DIS Emergency COREY PENDLETON APRN [facility] ER VAG BLEEDING/ABD PAIN 5 WKS PREG [id number] 06/27/2014 20:18:00 015 22:51:00 DIS Emergency COREY PENDLETON APRN [facility] ER VAGINAL BLEEDING [id number] 06/19/2014 19:20:00 22:11:00 DIS Emergency KEVIN MCCRAY [facility] ER CRAMPING; 5 WEEKS PREG PATRICIA [id number] 01/17/2014 03:24:00 06:08:00 DIS Emergency ANGELA HWANG DO [facility] ER VOMITING,ETOH [id number] 01/14/2014 10:35:00 15:53:00 DIS Inpatient ESTEPHANIA MCNAMARA MD [facility] WS NAUSEA [id number] 01/11/2014 19:04:00 21:10:00 DIS Emergency DIONICIO REEVES MD [facility] ER ABD PAIN [id number] 01/07/2014 09:30:00 16:30:00 DIS Outpatient ESTEPHANIA MCNAMARA MD [facility] SDC CHRONIC PELVIC PAIN [id number] 01/05/2014 09:47:00 23:59:59 CLS Outpatient ESTEPHANIA MCNAMARA MD [facility] PREOP CHRONIC PELVIC PAIN [id number] 10/17/2013 13:10:00 16:05:00 DIS Emergency KEVIN MCCRAY [facility] ER VOMITING [id number] 05/14/2013 00:00:00 14:30:00 DIS Inpatient STEPHANIE MASSEY MD [facility] SURGICAL INTRACTABLE VOMITING ABD PAIN,UTI [id number] 05/12/2013 10:13:00 13:06:00 DIS Emergency ANGELA HWANG DO [facility] ER ABD PAIN/VOMITING [id number] 05/08/2013 11:17:00 23:59:59 CLS Out[facility] [id number] 05/07/2013 14:58:00 23:59:59 CLS Outpatient STEPHANIE MASSEY MD [facility] PREOP [place]ST[place]ES [id number] 05/04/2013 18:35:00 22:06:00 DIS Emergency KEVIN MCCRAY [facility] ER ABDOMINAL PAINS [id number] 05/03/2013 10:25:00 13:50:00 DIS Emergency KEVIN MCCRAY [facility] ER VOMITING BACK PAIN [id number] 03/29/2013 15:06:00 22:55:00 DIS Emergency KEVIN MCCRAY [facility] ER WEAKNESS [id number] 09/19/2012 11:40:00 13:29:00 DIS Emergency MARILIA VALE MD [facility] ER [id number] 09/27/2019 23:20:00 Document Registration [id number] 05/23/2014 06:12:00 Document Registration [id number] 07/04/2012 07:47:00 Document Registration [id number] 07/01/2012 10:25:00 Document Registration [id number] 04/21/2012 22:38:00 Document Registration [id number] 04/21/2012 12:25:00 Document Registration [id number] 03/22/2010 02:54:00 Document Registration [id number] 01/30/2010 01:43:00 Document Registration [id number] 12/02/2009 01:17:00 Document Registration [id number] 11/29/2009 00:35:00 Document Registration [id number] 10/10/2009 19:30:00 Document Registration [id number] 09/25/2009 06:00:00 Document Registration [id number] 05/21/2019 13:00:00 05/21/2019 23:59: 59 CLS Outpatient LUIS MIGUEL [facility] [id number] 07/28/2019 13:40:00 Document Registration [id number] 02/03/2019 09:08:00 Document Registration [id number] 06/01/2016 21:10:00 017 [facility]59[facility]
[2019-09-28] MEDS ORDERED: CEPHALEXIN 250 MG (KEFLEX) CAP PO SCH (09:00)
--- NOTE | 2019-09-29 08:25 | Physician Query-Final Dx ---
JOHN BELTRAN 09/29/19 0825: Clinic Account Progress/Dx Physician Query: Please give diagnosis Please include # weeks gestation Date of Service Sep 27, 2019 at 22:34 FRANK MAHARAJ DO 09/29/19 0929: Clinic Account Progress/Dx DIAGNOSIS: Diagnosis 35 week IUP False labor contractions Uncomplicated UTI JOHN BELTRAN Sep 29, 2019 08:25 FRANK MAHARAJ DO Sep 29, 2019 09:29
== END 2019-09-28 00:35 | disposition home or self-care (01) ==
LOC: LDRP 22:34 → WSo 22:34 → UNDOADMIN 23:24 → LDRP 23:24 → WSo 09-28 00:35
PROVIDERS: ATTEND Obstetrics & Gynecology
DX: Z34.93 Encounter for supervision of normal pregnancy, unspecified, third trimester (principal); Z3A.35 35 weeks gestation of pregnancy
CPT/HCPCS: 81000; 87088; G0463; 99213

== ENCOUNTER 2019-10-06 20:37 | Inpatient (IN) | payer MEDICAID ==
[~2019-10-06] VITALS: Ht 149.9 cm; Wt 77.3 kg
--- NOTE | 2019-10-06 20:45 | NUR ---
CAM ESCOBEDO presented to unit via AMBULATORY from ED, accompanied by SO, with c/o INDUCTION. CAM ESCOBEDO weighed, gowned, voided, and to bed. EFHM and TOCO applied, VS taken. CAM ESCOBEDO oriented to bed controls, call light, TV, heat, and A/C controls. ABOVE AND FURTHER ASSESSMENTS COMPLETED PER ALIVIA SALINAS.
[2019-10-06] MEDS ORDERED: TERBUTALINE INJ 1 MG/ML (BRETHINE) AMP SC PRN (21:00)
[2019-10-06] MEDS ORDERED: MINERAL OIL CONCENTRATE 99.9% 15 ML UDC TOP PRN (21:00)
[2019-10-06] MEDS ORDERED: MISOPROSTOL 100 MCG (CYTOTEC) TAB PO ONE (21:00)
--- NOTE | 2019-10-06 21:00 | NUR ---
[place] tray given to pt, pt did not eat dinner before arrival.
[2019-10-06 21:06] LABS: BILIRUBIN,URINE NEGATIVE (NEGATIVE); CLARITY,URINE CLEAR; COLOR,URINE YELLOW; GLUCOSE, URINE (UA) NEGATIVE (NEGATIVE); KETONES,URINE TRACE (NEGATIVE); LEUKOCYTE ESTERASE ,URINE NEGATIVE (NEGATIVE); NITRITE,URINE NEGATIVE (NEGATIVE); PROTEIN,URINE TRACE (NEGATIVE)
[2019-10-06 21:07] VITALS: BP 119/73
[2019-10-06] MEDS: LACTATED RINGERS 1,000 ML IV SCH (21:34)
[2019-10-06 21:36] LABS: RBC,URINE 0-2 /HPF
[2019-10-06 21:37] LABS: AMORPHOUS SEDIMENT,UR RARE AMOR URATES /LPF; BACTERIA,URINE FEW /HPF; WBC,URINE 0-2 /HPF
[2019-10-06 21:54] LABS: BASOPHILS % (AUTO) 0 % (0-10); EOSINOPHILS % (AUTO) 0 % (0-10); HEMATOCRIT 31 % (35-52); HEMOGLOBIN 9.4 G/DL (11.5-16.0); LYMPHOCYTES # (AUTO) 0.7 X 10^3 (1.0-4.0); LYMPHOCYTES % (AUTO) 6 % (12-44); MEAN CORPUSCULAR HEMOGLOBIN 23 PG (25-34); MEAN CORPUSCULAR HGB CONC 31 G/DL (32-36); MEAN CORPUSCULAR VOLUME 75 FL (80-99); MEAN PLATELET VOLUME 12.6 FL (7.4-10.4); MONOCYTES # (AUTO) 0.2 X 10^3 (0.0-1.0); MONOCYTES % (AUTO) 1 % (0-12); NEUTROPHILS # (AUTO) 11.7 X 10^3 (1.8-7.8); NEUTROPHILS % (AUTO) 93 % (42-75); PLATELET COUNT 228 10^3/uL (130-400); RED CELL DISTRIBUTION WIDTH 15.7 % (10.0-14.5); WHITE BLOOD COUNT 12.5 10^3/uL (4.3-11.0)
[2019-10-06] MEDS: D5 LR IV SOLUTION 1,000 ML IV SCH (22:14)
[2019-10-06 22:25] LABS: ANISOCYTOSIS SLIGHT; HYPOCHROMASIA SLIGHT; LYMPHOCYTES % (MANUAL) 6 %; MICROCYTOSIS SLIGHT; MONOCYTES % (MANUAL) 2 %; NEUTROPHILS % (MANUAL) 91 %
--- NOTE | 2019-10-06 23:20 | NUR ---
pt has had small rash on arms, legs, hands and feet related to cholestasis of . Addendum: 10/06/19 at 2322 by ARIADNA AL RN Amended: Links added.
[2019-10-06 23:25] VITALS: BP 109/69
[2019-10-06] MEDS: ZOLPIDEM 5 MG (AMBIEN) TAB PO SCH (23:29)
[2019-10-06] MEDS: MISOPROSTOL 100 MCG (CYTOTEC) TAB PO SCH (23:30)
[2019-10-07] VITALS (49 sets, daily range): BP systolic 89–151; BP diastolic 51–81
[2019-10-07] MEDS: CATHETER FLUSH 10 ML SYR IV SCH ×4 (01:05→22:13)
[2019-10-07] MEDS ORDERED: morphine INJ 10 MG/ML 1ML (SYR OR VIAL) ONE (01:14)
[2019-10-07] MEDS ORDERED: morphine INJ 4 MG/ML 1 ML (VIAL/SYRINGE) IVP PRN (01:15)
[2019-10-07] MEDS: D5 LR IV SOLUTION 1,000 ML IV SCH (05:20)
[2019-10-07] MEDS: MISOPROSTOL 100 MCG (CYTOTEC) TAB PO SCH (05:23)
[2019-10-07] MEDS: LACTATED RINGERS 1,000 ML IV SCH (07:50)
[2019-10-07] MEDS ORDERED: fentaNYL 2 mcg/ml BUPIVA 0.125 100 ML ONE (08:13)
--- NOTE | 2019-10-07 08:15 | NUR ---
Anesthesia notified of epidural request
[2019-10-07] MEDS ORDERED: BUPIVACAINE 0.25% 30 ML (SENSORCAINE) VIAL ONE (08:42)
[2019-10-07] MEDS ORDERED: LIDOCAINE PF 2% 5 ML (XYLOCAINE) VIAL ONE (08:42)
[2019-10-07] MEDS ORDERED: fentaNYL INJECTION 100 MCG/2 ML AMP ONE (08:42)
[2019-10-07] MEDS ORDERED: LACTATED RINGERS 1,000 ML IV SCH (09:07)
[2019-10-07] MEDS ORDERED: diphenhydrAMINE 50 MG/ML INJ (BENADRYL) IV PRN (09:15)
[2019-10-07] MEDS ORDERED: NALOXONE 0.4 MG/ML 1 ML (NARCAN) VIAL IV PRN (09:15)
[2019-10-07] MEDS ORDERED: ONDANSETRON 4 MG/2 ML (SDV) Z0FRAN IV PRN (09:15)
[2019-10-07] MEDS ORDERED: EPIDURAL (fentaNYL 2 MCG/ML BUPIVA 0.125%)100 ML BAG EPI PRN (09:15)
[2019-10-07] MEDS ORDERED: OXYTOCIN PRE-MIX DRIP 500 ML IV SCH ×3 (11:31→13:49)
[2019-10-07] MEDS ORDERED: LIDOCAINE/EPI 2% 1:200,00 (XYLOCAINE) 10 ML VIAL ONE (12:24)
--- NOTE | 2019-10-07 13:26 | OB Labor & Delivery Record ---
Vag Delivery Note Vag Delivery Note Date of Delivery: 10/07/19 Preoperative Diagnosis: Kadie Artis is a 28 /Para 4/2, Gestational Age 37 weeks with intrahepatic cholestasis of Postoperative Diagnosis: Same Surgeon: JOBY MEEKS Anesthesia: epidural Delivery Type: vaginal Findings: Viable female infant, apgars pending weight pending Lacerations: none Intact placenta with 3 vessel cord. No nuchal cord, body cord or shoulder dystocia Estimated Blood Loss: 100 ml Complications: None Condition: Stable Description of Procedure: The patient is a 28 year old female who presented for cervical ripening and induction of labor. She was admitted and informed consent was obtained. Her labor course was remarkable for misoprostol and then AROM and pitocin. She progressed to complete dilatation and began to push. She was then set up for delivery. The infant's head was delivered atraumatically in the KEY position. The shoulders and remainder of the 's body were then delivered without difficulty. Upon delivery, the head was held below the level of the perineum and the mouth and nares were bulb suctioned. The cord was doubly clamped and cut and the was handed off to the pediatric staff. An intact placenta with 3-vessel cord delivered via Ronda and there was found to be minimal bleeding.~ Vigorous fundal massage was performed and the fundus was f ound to be firm. IV oxytocin was given. Examination of the vagina and perineum revealed no laceration. Following the delivery, sponge, instrument and needle counts were correct. Mom and baby were both in stable condition in the labor suite. Vitals - Labs Vital Signs - I&O Vital Signs Date Time Temp Pulse Resp B/P (MAP) Pulse Ox O2 Delivery O2 Flow Rate FiO2 10/07/19 12:25 74 18 115/73 (87) Room Air 10/07/19 12:05 63 18 107/64 (78) Room Air 10/07/19 11:55 66 18 89/51 (64) Room Air 10/07/19 11:41 36.2 10/07/19 11:40 65 18 97/53 (68) Room Air 10/07/19 11:25 57 18 103/67 (79) 97 Room Air 10/07/19 11:10 87 18 110/65 (80) 97 Room Air 10/07/19 10:55 67 18 110/60 (77) 96 Room Air 10/07/19 10:40 67 18 104/66 (79) 96 Room Air 10/07/19 10:25 66 18 99/59 (72) 96 Room Air 10/07/19 10:10 70 18 102/65 (77) 96 Room Air 10/07/19 09:50 36.2 82 18 108/68 (81) 97 Room Air 10/07/19 09:45 73 18 103/60 (74) 95 Room Air 10/07/19 09:42 72 18 109/60 (76) Room Air 10/07/19 09:39 74 18 107/57 (74) 94 Room Air 10/07/19 09:33 94 18 112/66 (81) 94 Room Air 10/07/19 09:30 86 18 110/57 (74) 94 Room Air 10/07/19 09:27 88 18 106/69 (81) 97 Room Air 10/07/19 09:24 96 18 112/58 (76) 97 Room Air 10/07/19 09:21 110 18 112/56 (74) 97 Room Air 10/07/19 09:18 93 18 107/68 (81) 97 Room Air 10/07/19 09:15 90 18 108/69 (82) 96 Room Air 10/07/19 09:13 86 18 103/61 (75) 94 Room Air 10/07/19 09:10 84 18 111/65 (80) 94 Room Air 10/07/19 09:05 81 18 96 Room Air 10/07/19 08:57 96 18 116/78 (91) 97 Room Air 10/07/19 08:50 109 18 115/77 (90) 98 Room Air 10/07/19 08:35 86 18 117/68 (84) Room Air 10/07/19 08:12 74 18 98/62 (74) Room Air 10/07/19 07:30 35.9 10/07/19 07:20 98 18 106/74 (85) Room Air 10/07/19 06:20 82 18 102/72 (82) Room Air 10/07/19 04:00 18 Room Air 10/07/19 02:40 36.0 72 16 109/66 (80) Room Air 10/07/19 01:30 86 16 107/74 (85) Room Air 7/21/20 00:30 82 18 101/64 (76) Room Air 10/06/19 23:25 36.7 84 18 109/69 (82) Room Air 10/06/19 21:07 36.2 113 18 98 Room Air I & O 10/07/19 07:00 Intake Total 2000 ml Balance 2000 ml Labs Laboratory Tests 10/06/19 20:50: Urine Color YELLOW, Urine Clarity CLEAR, Urine pH 6.0, Urine Specific Julian >=1.030, Urine Protein TRACEH, Urine Glucose (UA) NEGATIVE, Urine Ketones TRACEH , Urine Nitrite NEGATIVE, Urine Bilirubin NEGATIVE, Urine Urobilinogen 1.0, Urine Leukocyte Esterase NEGATIVE, Urine RBC (Auto) NEGATIVE, Urine RBC 0-2, Urine WBC 0-2, Urine Squamous Epithelial Cells 5-10, Urine Crystals PRESENTH, Urine Amorphous Sediment RARE OLIVERIO URATESH, Urine Bacteria FEWH, Urine Casts NONE, Urine Mucus SMALLH, Urine Culture Indicated YES 10/06/19 21:25: White Blood Count 12.5H, Red Blood Count 4.12L, Hemoglobin 9.4L, Hematocrit 31L, Mean Corpuscular Volume 75L, Mean Corpuscular Hemoglobin 23L, Mean Corpuscular Hemoglobin Concent 31L, Red Cell Distribution Width 15.7H, Platelet Count 228, Mean Platelet Volume 12.6H, Neutrophils (%) (Auto) 93H, Lymphocytes (%) (Auto) 6L, Monocytes (%) (Auto) 1, Eosinophils (%) (Auto) 0, Basophils (%) (Auto) 0, Neutrophils # (Auto) 11.7H, Lymphocytes # (Auto) 0.7L, Monocytes # (Auto) 0.2, Eosinophils # (Auto) 0.0, Basophils # (Auto) 0.0, Neutrophils % (Manual) 91, Lymphocytes % (Manual) 6, Monocytes % (Manual) 2, Hypochromasia SLIGHT, Anisocytosis SLIGHT, Microcytosis SLIGHT JOBY MEEKS DO Oct 07, 2019 13:26
[2019-10-07] MEDS ORDERED: WITCH HAZEL(TUCKS) 40 EA JAR TOP PRN (13:30)
[2019-10-07] MEDS ORDERED: MEASLES,MUMPS,RUBELLA 1 EA INJ SQ ONE (13:30)
[2019-10-07] MEDS ORDERED: DIBUCAINE (NUPERCAINAL) 1% OINT 30 GM TOP PRN (13:30)
[2019-10-07] MEDS ORDERED: TETANUS,DIPTH,PERTUSS P/F (BOOSTRIX) 0.5 ML VIAL IM ONE (13:30)
[2019-10-07] MEDS ORDERED: BENZOCAINE/MENTHOL (DERMOPLAST) 60 ML CAN TP PRN (13:30)
[2019-10-07] MEDS ORDERED: diphenhydrAMINE 25 MG TAB (BENADRYL) PO PRN (13:30)
--- NOTE | 2019-10-07 15:00 | NUR ---
Pt assisted to standing at side of bed per A Back. Pt to bathroom via ambulation, +void, without difficulty. Pericare performed. Pt assisted to wheelchair. Taken to room 310 accompanied by RN, S.O., infant and assisted to bed. Pt and S.O. oriented to room and call light. Personal belongings with pt. packet explained. Pt denies needs or concerns
[2019-10-07] MEDS: IBUPROFEN 600 MG (MOTRIN) TAB PO SCH ×2 (16:07→22:06)
[2019-10-07] MEDS: DOCUSATE SODIUM 100 MG (COLACE) CAP PO SCH (20:46)
[2019-10-07] MEDS: ZOLPIDEM 5 MG (AMBIEN) TAB PO SCH (21:36)
[2019-10-08] VITALS: BP 114/65
[2019-10-08] MEDS: IBUPROFEN 600 MG (MOTRIN) TAB PO SCH ×5 (01:38→21:10)
[2019-10-08 03:48] VITALS: BP 120/69
[2019-10-08 05:43] LABS: BASOPHILS % (AUTO) 0 % (0-10); EOSINOPHILS # (AUTO) 0.1 10^3/uL (0.0-0.3); EOSINOPHILS % (AUTO) 1 % (0-10); HEMATOCRIT 27 % (35-52); HEMOGLOBIN 8.1 G/DL (11.5-16.0); LYMPHOCYTES # (AUTO) 1.9 X 10^3 (1.0-4.0); LYMPHOCYTES % (AUTO) 14 % (12-44); MEAN CORPUSCULAR HEMOGLOBIN 23 PG (25-34); MEAN CORPUSCULAR HGB CONC 30 G/DL (32-36); MEAN CORPUSCULAR VOLUME 77 FL (80-99); MEAN PLATELET VOLUME 12.7 FL (7.4-10.4); MONOCYTES # (AUTO) 1.3 X 10^3 (0.0-1.0); MONOCYTES % (AUTO) 10 % (0-12); NEUTROPHILS # (AUTO) 9.9 X 10^3 (1.8-7.8); NEUTROPHILS % (AUTO) 75 % (42-75); PLATELET COUNT 170 10^3/uL (130-400); RED CELL DISTRIBUTION WIDTH 15.3 % (10.0-14.5); WHITE BLOOD COUNT 13.2 10^3/uL (4.3-11.0)
[2019-10-08] MEDS: PRENATAL VITAMIN 1 EA TAB PO SCH ×2 (06:10→09:25)
[2019-10-08] MEDS: CATHETER FLUSH 10 ML SYR IV SCH (06:10)
--- NOTE | 2019-10-08 07:39 | Anesthesia-Regional Post-Op ---
Regional Patient Condition Mental Status: Alert, Oriented x3 Circulation: Same as Pre-Op Headache: Absent Sensation: Full Recovery Motor Block: Absent Post Op Complications Complications None Follow Up Care/Instructions Patient Instructions None needed. Anesthesia/Patient Condition Patient is doing well, no complaints, stable vital signs, no apparent adverse anesthesia problems. No complications reported per nursing. SNEHA HAYS CRNA Oct 08, 2019 07:39
[2019-10-08] MEDS ORDERED: FERROUS SULF 325 MG (IRON) TAB PO SCH (08:00)
--- NOTE | 2019-10-08 08:40 | Postpartum Progress Note ---
Note Note Day # 1 s/p , Induction due to ICHP; complained of itching during labor, but has not used benedryl since deliver Subjective: Patient is without complaints. Ambulating, voiding. Tolerating a regular diet without nausea or vomiting. Normal lochia. Pain is well controlled with oral pain medications. bottle feeding. Objective: Laboratory Tests Test 10/08/19 05:26 Range/Units White Blood Count 13.2 H 4.3-11.0 10^3/uL Red Blood Count 3.50 L 4.35-5.85 10^6/uL Hemoglobin 8.1 L 11.5-16.0 G/DL Hematocrit 27 L 35-52 % Mean Corpuscular Volume 77 L 80-99 FL Mean Corpuscular Hemoglobin 23 L 25-34 PG Mean Corpuscular Hemoglobin Concent 30 L 32-36 G/DL Red Cell Distribution Width 15.3 H 10.0-14.5 % Platelet Count 170 130-400 10^3/uL Mean Platelet Volume 12.7 H 7.4-10.4 FL Neutrophils (%) (Auto) 75 42-75 % Lymphocytes (%) (Auto) 14 12-44 % Monocytes (%) (Auto) 10 0-12 % Eosinophils (%) (Auto) 1 0-10 % Basophils (%) (Auto) 0 0-10 % Neutrophils # (Auto) 9.9 H 1.8-7.8 X 10^3 Lymphocytes # (Auto) 1.9 1.0-4.0 X 10^3 Monocytes # (Auto) 1.3 H 0.0-1.0 X 10^3 Eosinophils # (Auto) 0.1 0.0-0.3 10^3/uL Basophils # (Auto) 0.0 0.0-0.1 10^3/uL 10/07/19 10/08/19 10/08/19 21:00 00:00 03:48 Temp 36.0 36.4 Pulse 61 61 Resp 18 16 B/P (MAP) 114/65 (81) 120/69 (86) Pulse Ox 95 93 97 O2 Delivery Room Air Room Air Room Air 10/08/19 00:00 Intake Total 500 ml Balance 500 ml Physical Exam: General - Alert and oriented, no apparent distress Abdomen - Soft, appropriately tender to palpation, non-distended, fundus firm at umbilicus Extremities - no edema, negative Payal's bilaterally Assessment: 1. post- day # 1, status post spontaneous vaginal delivery. Recovering well, hemodynamically stable Plan: Routine care. Encourage ambulation. Ferrous sulfate supplementation. Plan for discharge today or tomorrow Vitals - Labs Vital Signs - I&O Vital Signs Date Time Temp Pulse Resp B/P (MAP) Pulse Ox O2 Delivery O2 Flow Rate FiO2 10/08/19 03:48 36.4 61 16 120/69 (86) 97 Room Air 10/08/19 00:00 36.0 61 18 114/65 (81) 93 Room Air 10/07/19 21:00 95 Room Air 10/07/19 20:00 36.0 72 16 102/56 (71) 95 Room Air 10/07/19 16:06 36.4 66 18 121/67 (85) Room Air 10/07/19 14:33 82 18 110/60 (77) Room Air 10/07/19 14:18 73 18 117/65 (82) Room Air 10/07/19 14:03 85 18 123/57 (79) Room Air 10/07/19 13:42 36.4 89 18 128/60 (82) Room Air 10/07/19 13:32 106 18 123/61 (81) Room Air 10/07/19 13:22 100 18 127/60 (82) Room Air 10/07/19 13:15 110 18 151/75 (100) Room Air 10/07/19 13:10 130 18 134/75 (94) Room Air 10/07/19 13:00 112 18 121/76 (91) Room Air 10/07/19 13:00 80 18 132/65 (87) Room Air 10/07/19 12:55 74 18 113/65 (81) Room Air 10/07/19 12:50 85 18 112/65 (81) Room Air 10/07/19 12:45 82 18 112/76 (88) Room Air 10/07/19 12:40 114 18 111/60 (77) Room Air 10/07/19 12:35 73 18 114/61 (78) Room Air 10/07/19 12:30 103 18 129/81 (97) Room Air 10/07/19 12:25 74 18 115/73 (87) Room Air 10/07/19 12:05 63 18 107/64 (78) Room Air 10/07/19 11:55 66 18 89/51 (64) Room Air 10/07/19 11:41 36.2 10/07/19 11:40 65 18 97/53 (68) Room Air 10/07/19 11:25 57 18 103/67 (79) 97 Room Air 10/07/19 11:10 87 18 110/65 (80) 97 Room Air 10/07/19 10:55 67 18 110/60 (77) 96 Room Air 10/07/19 10:40 67 18 104/66 (79) 96 Room Air 10/07/19 10:25 66 18 99/59 (72) 96 Room Air 10/07/19 10:10 70 18 102/65 (77) 96 Room Air 10/07/19 09:50 36.2 82 18 108/68 (81) 97 Room Air 10/07/19 09:45 73 18 103/60 (74) 95 Room Air 10/07/19 09:42 72 18 109/60 (76) Room Air 10/07/19 09:39 74 18 107/57 (74) 94 Room Air 10/07/19 09:33 94 18 112/66 (81) 94 Room Air 10/07/19 09:30 86 18 110/57 (74) 94 Room Air 10/07/19 09:27 88 18 106/69 (81) 97 Room Air 10/07/19 09:24 96 18 112/58 (76) 97 Room Air 10/07/19 09:21 110 18 112/56 (74) 97 Room Air 10/07/19 09:18 93 18 107/68 (81) 97 Room Air 10/07/19 09:15 90 18 108/69 (82) 96 Room Air 10/07/19 09:13 86 18 103/61 (75) 94 Room Air 10/07/19 09:10 84 18 111/65 (80) 94 Room Air 10/07/19 09:05 81 18 96 Room Air 10/07/19 08:57 96 18 116/78 (91) 97 Room Air 10/07/19 08:50 109 18 115/77 (90) 98 Room Air I & O 10/08/19 07:00 Intake Total 3000 ml Balance 3000 ml Labs Laboratory Tests 10/08/19 05:26: White Blood Count 13.2H, Red Blood Count 3.50L, Hemoglobin 8.1L, Hematocrit 27L, Mean Corpuscular Volume 77L, Mean Corpuscular Hemoglobin 23L, Mean Corpuscular Hemoglobin Concent 30L, Red Cell Distribution Width 15.3H, Platelet Count 170, Mean Platelet Volume 12.7H, Neutrophils (%) (Auto) 75, Lymphocytes (%) (Auto) 14, Monocytes (%) (Auto) 10, Eosinophils (%) (Auto) 1, Basophils (%) (Auto) 0, Neutrophils # (Auto) 9.9H, Lymphocytes # (Auto) 1.9, Monocytes # (Auto) 1.3H, Eosinophils # (Auto) 0.1, Basophils # (Auto) 0.0 Microbiology 10/06/19 Urine Culture - Final, Complete NO GROWTH JOBY MEEKS DO Oct 08, 2019 08:40
[2019-10-08] MEDS ORDERED: DCS100C PO (08:41)
[2019-10-08] MEDS ORDERED: FERR325T18 PO (08:41)
[2019-10-08] MEDS ORDERED: IBUP-844 PO (08:41)
[2019-10-08] MEDS ORDERED: ACET-93 PO (08:41)
--- NOTE | 2019-10-08 08:42 | Discharge Inst-Women's Service ---
Discharge Inst-Women's Serv Depart Medication/Instructions New, Converted or Re-Newed RX: Transmitted to Pharmacy Final Diagnosis intrahepatic cholestasis of induction at 37 weeks antepartum iron def anemia and acute blood loss anemia Problems Reviewed?: Yes Consults/Follow Up Additional Follow Up: Yes (6 weeks/cbc at 6 weeks) Activity Activity: Activity as Tolerated Driving Instructions: You May Drive NO SMOKING: NO SMOKING Nothing Inside Vagina: No Douching, No [place], No Tampons Diet Discharge Diet: No Restrictions Symptoms to Report to : Swelling Increased, Bleeding Excessive, Fever Over 1 01 Degrees F, Vaginal Bleeding Increase, Cramps in Feet or Legs, Vaginal Discharge Foul For Any Problems or Questions: Contact Your Physician JOBY MEEKS DO Oct 08, 2019 08:42
[2019-10-08 09:25] VITALS: BP 120/70
[2019-10-08] MEDS: ACETAMINOPHEN 500 MG TAB (TYLENOL) PO SCH ×5 (09:26→21:10)
[2019-10-08 15:00] VITALS: BP 106/58
[2019-10-08] MEDS: FERROUS SULF 325 MG (IRON) TAB PO SCH ×2 (19:52→21:10)
[2019-10-08] MEDS: DOCUSATE SODIUM 100 MG (COLACE) CAP PO SCH ×2 (19:52→21:10)
[2019-10-08 21:10] VITALS: BP 114/75
[2019-10-09] MEDS: IBUPROFEN 600 MG (MOTRIN) TAB PO SCH ×2 (04:27→09:29)
[2019-10-09 04:28] VITALS: BP 113/70
[2019-10-09] MEDS: ACETAMINOPHEN 500 MG TAB (TYLENOL) PO SCH ×2 (04:28→11:55)
--- NOTE | 2019-10-09 07:03 | Postpartum Progress Note ---
Note Note Day # 2 s/p Subjective: Patient is without complaints. Ambulating, voiding. Tolerating a regular diet without nausea or vomiting. Normal lochia. Pain is well controlled with oral pain medications. Objective: 10/08/19 10/09/19 21:10 04:28 Temp 36.4 36.6 Pulse 61 74 Resp 18 20 B/P (MAP) 114/75 (88) 113/70 (84) Pulse Ox 97 98 O2 Delivery Room Air Room Air Physical Exam: General - Alert and oriented, no apparent distress Abdomen - Soft, appropriately tender to palpation, non-distended, fundus firm at umbilicus Extremities - no edema, negative Payal's bilaterally Assessment: 1. post- day # 2, status post spontaneous vaginal delivery. Recovering well, hemodynamically stable 2. anemia Plan: Routine care. Encourage breast feeding. Encourage ambulation. Ferrous sulfate supplementation. Plan for discharge today Vitals - Labs Vital Signs - I&O Vital Signs Date Time Temp Pulse Resp B/P (MAP) Pulse Ox O2 Delivery O2 Flow Rate FiO2 10/09/19 04:28 36.6 74 20 113/70 (84) 98 Room Air 10/08/19 21:10 36.4 61 18 114/75 (88) 97 Room Air 10/08/19 15:00 37.2 64 20 106/58 (74) Room Air 10/08/19 09:25 98 Room Air 10/08/19 09:25 37.0 70 20 120/70 (87) Room Air Labs Microbiology 10/06/19 Urine Culture - Final, Complete NO GROWTH JOBY MEEKS DO Oct 09, 2019 07:03
[2019-10-09 09:00] VITALS: BP 119/82
--- NOTE | 2019-10-09 09:00 | NUR ---
A.M. ASSESSMENT COMPLETED. VSS. DR. MEEKS IN TO SEE PT. CARING FOR INFANT IN ROOM.
[2019-10-09] MEDS: DOCUSATE SODIUM 100 MG (COLACE) CAP PO SCH (09:16)
[2019-10-09] MEDS: PRENATAL VITAMIN 1 EA TAB PO SCH (09:16)
[2019-10-09] MEDS: FERROUS SULF 325 MG (IRON) TAB PO SCH (09:16)
--- NOTE | 2019-10-09 11:00 | NUR ---
CONTINUES TO CARE FOR IN ROOM. GOOD INTERACTION NOTED.
--- NOTE | 2019-10-09 13:00 | NUR ---
DISCHARGE INSTRUCTIONS REVIEWED WITH COPY TO PT. STATES UNDERSTANDING OF ALL INSTRUCTIONS AND NEED TO F/U SCHEDULED AND NEEDED.
[2019-10-09 13:05] VITALS: BP 119/82
--- NOTE | 2019-10-09 13:05 | NUR ---
DISMISSED FROM [facility] VIA W/C WITH IN STABLE CONDITION TO FAMILY CAR ACC BY MOTHER AND CALE DRUMMOND RN.
== END 2019-10-09 13:05 | disposition home or self-care (01) | DRG 806 ==
LOC: LDRP 20:37
PROVIDERS: ADMIT Obstetrics & Gynecology; ATTEND Obstetrics & Gynecology
PROC: 10E0XZZ Delivery of Products of Conception, External Approach (ICD-10-PCS; principal; 2019-10-07)
PROC: 3E033VJ Introduction of Other Hormone into Peripheral Vein, Percutaneous Approach (ICD-10-PCS; 2019-10-07)
DX: O26.62 Liver and biliary tract disorders in childbirth (principal); D62 Acute posthemorrhagic anemia; Z37.0 Single live birth; O90.81 Anemia of the puerperium; O99.013 Anemia complicating pregnancy, third trimester; D50.9 Iron deficiency anemia, unspecified; Z3A.37 37 weeks gestation of pregnancy
CPT/HCPCS: 36415; 81000; 85007; 85025; 85027; 86850; 86900; 86901; 87088

== ENCOUNTER 2019-10-11 08:16 | Emergency (ER) | payer MEDICAID ==
[~2019-10-11] VITALS: Ht 149.8 cm; Wt 61.2 kg
[~2019-10-11 08:16] MED LIST changes: +ACET-93 PO; +DCS100C PO; +FERR325T18 PO; +IBUP-844 PO
--- NOTE | 2019-10-11 09:05 | ED General ---
General Chief Complaint: Fever-Adult/Adol Stated Complaint: FEVER Nursing Triage Note: Patient reports vaginal delivery on Sunday at 37 weeks at [facility] with Dr. Meeks, states she was induced d/t cholestasis. She states she developed a fever and abdominal cramping on Sunday, has been taking tylenol to control temperature. States temperature max was 101.3. She denies any respiratory symptoms, denies diarrhea, denies nausea or vomiting, denies any breast tenderness or redness (bottle feeding). States her bleeding has been fairly normal, denies any abnormal discharge. States her hemoglobin was down to 8 after delivery. States she took tylenol at 0700 this morning before coming to the ED. Nursing Sepsis Screen: No Definite Risk Source of Information: Patient Exam Limitations: No Limitations History of Present Illness Date Seen by Provider: Oct 11, 2019 Time Seen by Provider: 08:55 Initial Comments 28-year-old female presents with onset of fever which began yesterday and continued intermittently until this morning. Yesterday was 99-100, this morning was 101. She is 4 days post induced vaginal delivery at 37 weeks. without complication. She denies any cough, respiratory symptoms, nasal congestion or sore throat. She is having some breast tenderness, although not localized. She is not breast-feeding. She denies nausea vomiting or diarrhea. She is having some lower pelvic cramping without any foul-smelling discharge, normal vaginal bleeding. Allergies and Home Medications Allergies Coded Allergies: clindamycin (Verified Allergy, Intermediate, oral blisters, SOB, 01/01/19) cinnamon (Verified Allergy, Unknown, 10/07/19) Home Medications Acetaminophen 500 Mg Tablet, 1,000 MG PO Q8HR Prescribed by: JOBY MEEKS on 10/08/19 0841 Acetaminophen with Codeine 1 Each Tablet, 1 EACH PO Q6H Prescribed by: ROULA MICHEL on 10/11/19 1014 Ciprofloxacin HCl 500 Mg Tablet, 500 MG PO BID Prescribed by: ROLUA MICHEL on 10/11/19 1014 Docusate Sodium 100 Mg Capsule, 100 MG PO BID Prescribed by: JOBY MEEKS on 10/08/19 0841 Ferrous Sulfate 325 Mg Tablet, 325 MG PO BID WITH MEALS Prescribed by: JOBY MEEKS on 10/08/19 0841 Ibuprofen 600 Mg Tablet, 600 MG PO Q6H Prescribed by: JOBY MEEKS on 10/08/19 0841 Phenazopyridine HCl 200 Mg Tablet, 1 TAB PO BID Prescribed by: ROULA MICHEL on 10/11/19 1014 Patient Home Medication List Home Medication List Reviewed: Yes Review of Systems Review of Systems Constitutional: No chills, No diaphoresis, No dizziness; fever; No malaise, No weakness EENTM: no symptoms reported Respiratory: no symptoms reported; No cough, No short of breath, No wheezing Cardiovascular: No chest pain, No edema, No palpitations Gastrointestinal: No abdominal pain, No loss of appetite, No nausea, No vomiting Genitourinary: see HPI, other (pelvic cramping, intermittent. vaginal bleeding, not excessive. No foul smelling vaginal DC, no episiotomy or tear.) : No Musculoskeletal: No back pain, No neck pain Skin: No change in color, No lesions, No lumps, No rash Psychiatric/Neurological: Denies Headache, Denies Weakness Past Blnqxvt-Nvqqjz-Harupg Hx Past Med/Social Hx: Reviewed Nursing Past Med/Soc Hx Patient Social History Alcohol Use: Denies Use Recreational Drug Use: No Smoking Status: Never a Smoker Type Used: Cigarettes Former Smoker, Quit: Feb 05, 2019 2nd Hand Smoke Exposure: Yes Recent Foreign Travel: No Contact w/Someone Who Travel: No Recent Infectious Disease Expo: No Recent Hopitalizations: No Physical Abuse: No Sexual Abuse: No Mistreated: No Fear: No Immunizations Up To Date Tetanus Booster (TDap): More than 5yrs PED Vaccines UTD: Yes Date of Influenza Vaccine: Dec 17, 2012 Seasonal Allergies Seasonal Allergies: No Past Medical History Surgeries: Yes (Umbilical herniorrhaphy 07/04/12,D&C, ENDOMETRIOSIS SCRAPING, d&c, Mesh Tommy) Abdominal, Adenoidectomy, Appendectomy, Gallbladder, Tonsillectomy Respiratory: No Cardiac: No Neurological: No (only if pt takes tramadol. last seizere 04/2011) Reproductive Disorders: Yes (CPP) Female Reproductive Disorders: Endometriosis, Ovarian Cyst Sexually Transmitted Disease: No HIV/AIDS: No Genitourinary: Yes Kidney Infection, UTI-Chronic Gastrointestinal: Yes (umbilical hernia removed 11/25/18) Abdominal Hernia, Gall Bladder Disease Musculoskeletal: No Chronic Back Pain Endocrine: No HEENT: No Cancer: No Psychosocial: Yes Anxiety, Depression Integumentary: No Blood Disorders: No Adverse Reaction/Blood Tranf: No Family Medical History Patient reports no known family medical history. No Pertinent Family Hx Physical Exam Vital Signs Vital Signs - First Documented 10/11/19 08:28 Temp 37.0 Pulse 72 Resp 16 B/P (MAP) 123/72 (89) Pulse Ox 96 O2 Delivery Room Air Capillary Refill : Less Than 3 Seconds Height, Weight, BMI Height: 4'10.00" Weight: 125lbs. 0oz. [id number]; 27.00 BMI Method:Stated General Appearance: No Apparent Distress, WD/WN HEENT: PERRL/EOMI, Normal ENT Inspection Neck: Non Tender, Supple Respiratory: Chest Non Tender, Lungs Clear, Normal Breath Sounds, No Accessory Muscle Use, No Respiratory Distress Cardiovascular: Regular Rate, Rhythm, No Edema Gastrointestinal: Soft; No Distended, No Guarding, No Rebound; Tenderness (mild lower abdominal, non-localized) Back: Normal Inspection, No CVA Tenderness Extremity: Normal Capillary Refill, Non Tender Neurologic/Psychiatric: Alert, Oriented x3 Progress/Results/Core Measures Suspected Sepsis Recent Fever Within 48 Hours: Yes Infection Criteria Present: Suspected New Infection New/Unexplained Altered Menta: No Sepsis Screen: No Definite Risk SIRS Temperature: Pulse: 72 Respiratory Rate: 16 Laboratory Tests 10/11/19 09:20: White Blood Count 11.6H Blood Pressure 123 /72 Mean: 89 Laboratory Tests 10/11/19 09:20: Creatinine 0.68, Platelet Count 268, Total Bilirubin 0.2 Results/Orders Lab Results Laboratory Tests Test 10/11/19 09:20 10/11/19 09:25 Range/Units White Blood Count 11.6 H 4.3-11.0 10^3/uL Red Blood Count 4.34 L 4.35-5.85 10^6/uL Hemoglobin 10.0 #L 11.5-16.0 G/DL Hematocrit 33 L 35-52 % Mean Corpuscular Volume 76 L 80-99 FL Mean Corpuscular Hemoglobin 23 L 25-34 PG Mean Corpuscular Hemoglobin Concent 30 L 32-36 G/DL Red Cell Distribution Width 15.9 H 10.0-14.5 % Platelet Count 268 130-400 10^3/uL Mean Platelet Volume 10.7 H 7.4-10.4 FL Neutrophils (%) (Auto) 76 H 42-75 % Lymphocytes (%) (Auto) 12 12-44 % Monocytes (%) (Auto) 8 0-12 % Eosinophils (%) (Auto) 3 0-10 % Basophils (%) (Auto) 1 0-10 % Neutrophils # (Auto) 8.8 H 1.8-7.8 X 10^3 Lymphocytes # (Auto) 1.4 1.0-4.0 X 10^3 Monocytes # (Auto) 0.9 0.0-1.0 X 10^3 Eosinophils # (Auto) 0.3 0.0-0.3 10^3/uL Basophils # (Auto) 0.1 0.0-0.1 10^3/uL Sodium Level 138 135-145 MMOL/L Potassium Level 4.3 3.6-5.0 MMOL/L Chloride Level 105 98-107 MMOL/L Carbon Dioxide Level 22 21-32 MMOL/L Anion Gap 11 5-14 MMOL/L Blood Urea Nitrogen 10 7-18 MG/DL Creatinine 0.68 0.60-1.30 MG/DL Estimat Glomerular Filtration Rate > 60 BUN/Creatinine Ratio 15 Glucose Level 100 70-105 MG/DL Calcium Level 9.1 8.5-10.1 MG/DL Corrected Calcium 9.5 8.5-10.1 MG/DL Total Bilirubin 0.2 0.1-1.0 MG/DL Aspartate Amino Transf (AST/SGOT) 29 5-34 U/L Alanine Aminotransferase (ALT/SGPT) 26 0-55 U/L Alkaline Phosphatase 101 40-136 U/L Total Protein 6.9 6.4-8.2 GM/DL Albumin 3.5 3.2-4.5 GM/DL Urine Color PALE YELLOW Urine Clarity CLEAR Urine pH 7.0 5-9 Urine Specific [place] <=1.005 1.016-1.022 Urine Protein NEGATIVE NEGATIVE Urine Glucose (UA) NEGATIVE NEGATIVE Urine Ketones NEGATIVE NEGATIVE Urine Nitrite NEGATIVE NEGATIVE Urine Bilirubin NEGATIVE NEGATIVE Urine Urobilinogen 0.2 < = 1.0 MG/DL Urine Leukocyte Esterase TRACE H NEGATIVE Urine RBC (Auto) 2+ H NEGATIVE Urine RBC 2-5 H /HPF Urine WBC 10-25 H /HPF Urine Squamous Epithelial Cells 2-5 /HPF Urine Crystals NONE /LPF Urine Bacteria TRACE /HPF Urine Casts NONE /LPF Urine Mucus NEGATIVE /LPF Urine Culture Indicated YES My Orders Orders - ROULA MICHEL DO Ed Iv/Invasive Line Start (10/11/19 08:56) Chest 1 View Ap/Pa Only (10/11/19 08:56) Cbc With Automated Diff (10/11/19 08:56) Comprehensive Metabolic Panel (10/11/19 08:56) Urinalysis (10/11/19 08:56) Urine Culture (10/11/19 09:25) Vital Signs/I&O 10/11/19 08:28 Temp 37.0 Pulse 72 Resp 16 B/P (MAP) 123/72 (89) Pulse Ox 96 O2 Delivery Room Air Capillary Refill : Less Than 3 Seconds Blood Pressure Mean: 89 Progress Note : Progress Note [address] Kellogg, [employer] construction lineman regarding patient history of present illness, clinical findings, labs and chest x-ray. UA confirming a UTI. He advises Cipro for treatment as well as peridium and T3 for symptoms. Patient advised follow-up with her [employer] DEC[employer] next week, sooner if worse, ER if unable to see [employer]ING DEC[employer]ATOR. Diagnostic Imaging Diagonstic Imaging: Xray Plain Films/CT/US/NM/MRI: chest Comments COMPARISON: 10/21/2018 TECHNIQUE: Single frontal radiograph of the chest dated 10/11/2019. FINDINGS: The cardiac silhouette is within normal limits in size. No significant pulmonary vascular congestion. The lungs are clear. No pleural effusion. No pneumothorax. No acute osseous abnormality. Low lung volumes. IMPRESSION: Low lung volumes without superimposed acute cardiopulmonary abnormality. Dictated on workstation # [id number] Dict: 10/11/19925 Trans: 10/11/1930 [id number] Interpreted by: BRYANNA TY MD Electronically signed by: Departure Impression Primary Impression: UTI (urinary tract infection) Qualified Codes: N39.0 - Urinary tract infection, site not specified Additional Impression: infection Qualified Codes: O86.89 - Other specified puerperal infections Disposition: 01 HOME, SELF-CARE Condition: Stable Departure-Patient Inst. Decision time for Depature: 10:11 Referrals: NO,LOCAL PHYSICIAN (PCP/Family) Primary Care Physician Patient Instructions: Urinary Tract Infection, Adult (DC) Add. Discharge Instructions: see your OB Doctor in 1 week for reevaluation, sooner if worse. All discharge instructions reviewed with patient and/or family. Voiced understa nding. Scripts Acetaminophen with Codeine (Acetaminophen-Cod #3 Tablet) 1 Each Tablet 1 EACH PO Q6H for Pain for 7 Days, #20 TAB Prov: ROULA MICHEL DO 10/11/19 Phenazopyridine HCl (Pyridium) 200 Mg Tablet 1 TAB PO BID, #6 TAB Prov: ROULA MICHEL DO 10/11/19 Ciprofloxacin HCl (Ciprofloxacin HCl) 500 Mg Tablet 500 MG PO BID, #14 TAB Prov: ROULA MICHEL DO 10/11/19 ROULA MICHEL DO Oct 11, 2019 09:05
--- NOTE | 2019-10-11 09:30 | Diagnostic Imaging Report ---
INDICATION: Fever. COMPARISON: 10/21/2018 TECHNIQUE: Single frontal radiograph of the chest dated 10/11/2019. FINDINGS: The cardiac silhouette is within normal limits in size. No significant pulmonary vascular congestion. The lungs are clear. No pleural effusion. No pneumothorax. No acute osseous abnormality. Low lung volumes. IMPRESSION: Low lung volumes without superimposed acute cardiopulmonary abnormality. Dictated by: Dictated on workstation # [id number]
[2019-10-11 09:46] LABS: CLARITY,URINE CLEAR; COLOR,URINE PALE YELLOW; GLUCOSE, URINE (UA) NEGATIVE (NEGATIVE); PROTEIN,URINE NEGATIVE (NEGATIVE)
[2019-10-11 09:47] LABS: BACTERIA,URINE TRACE /HPF; BILIRUBIN,URINE NEGATIVE (NEGATIVE); KETONES,URINE NEGATIVE (NEGATIVE); LEUKOCYTE ESTERASE ,URINE TRACE (NEGATIVE); NITRITE,URINE NEGATIVE (NEGATIVE)
[2019-10-11 09:48] LABS: HEMATOCRIT 33 % (35-52); LYMPHOCYTES % (AUTO) 12 % (12-44); MEAN CORPUSCULAR HEMOGLOBIN 23 PG (25-34); MEAN CORPUSCULAR HGB CONC 30 G/DL (32-36); MEAN CORPUSCULAR VOLUME 76 FL (80-99); MEAN PLATELET VOLUME 10.7 FL (7.4-10.4); PLATELET COUNT 268 10^3/uL (130-400); RED CELL DISTRIBUTION WIDTH 15.9 % (10.0-14.5); WHITE BLOOD COUNT 11.6 10^3/uL (4.3-11.0)
[2019-10-11 09:49] LABS: BASOPHILS % (AUTO) 1 % (0-10); EOSINOPHILS % (AUTO) 3 % (0-10); MONOCYTES % (AUTO) 8 % (0-12); NEUTROPHILS % (AUTO) 76 % (42-75)
[2019-10-11 09:50] LABS: BASOPHILS # (AUTO) 0.1 10^3/uL (0.0-0.1); EOSINOPHILS # (AUTO) 0.3 10^3/uL (0.0-0.3); LYMPHOCYTES # (AUTO) 1.4 X 10^3 (1.0-4.0); MONOCYTES # (AUTO) 0.9 X 10^3 (0.0-1.0); NEUTROPHILS # (AUTO) 8.8 X 10^3 (1.8-7.8)
[2019-10-11 09:52] LABS: ALANINE AMINOTRANSFERASE 26 U/L (0-55); ALKALINE PHOSPHATASE 101 U/L (40-136); BILIRUBIN,TOTAL 0.2 MG/DL (0.1-1.0); BUN/CREATININE RATIO 15; CALCIUM 9.1 MG/DL (8.5-10.1); CARBON DIOXIDE 22 MMOL/L (21-32); CHLORIDE 105 MMOL/L (98-107); CREATININE SERUM 0.68 MG/DL (0.60-1.30); GFR ESTIMATED > 60; GLUCOSE 100 MG/DL (70-105); POTASSIUM 4.3 MMOL/L (3.6-5.0); SODIUM 138 MMOL/L (135-145)
[2019-10-11 09:53] LABS: ALBUMIN 3.5 GM/DL (3.2-4.5); TOTAL PROTEIN 6.9 GM/DL (6.4-8.2)
[2019-10-11] MEDS ORDERED: ACET1TAB43 PO (10:14)
[2019-10-11] MEDS ORDERED: PHEN-640 PO (10:14)
[2019-10-11] MEDS ORDERED: CIPR500T4 PO (10:14)
[2019-10-11 10:35] VITALS: BP 107/75
== END 2019-10-11 10:35 | disposition home or self-care (01) ==
LOC: EDUNIT# 08:16 → ER FS 08:18
DX: O86.20 Urinary tract infection following delivery, unspecified (principal); O86.89 Other specified puerperal infections; G89.29 Other chronic pain; M54.9 Dorsalgia, unspecified; Z88.1 Allergy status to other antibiotic agents; Z87.891 Personal history of nicotine dependence; Z77.22 Contact with and (suspected) exposure to environmental tobacco smoke (acute) (chronic)
CPT/HCPCS: 36415; 71045; 80053; 81000; 85025; 87088

== ENCOUNTER 2020-04-20 06:58 | Emergency (ER) | payer MEDICAID ==
[~2020-04-20] VITALS: Ht 149.8 cm; Wt 62.7 kg
[~2020-04-20 06:58] MED LIST changes: +ACET1TAB43 PO; +CIPR500T4 PO; +PHEN-640 PO
[2020-04-20 07:22] LABS: CLARITY,URINE CLEAR; COLOR,URINE YELLOW; GLUCOSE, URINE (UA) NEGATIVE (NEGATIVE); PROTEIN,URINE NEGATIVE (NEGATIVE)
[2020-04-20 07:23] LABS: BACTERIA,URINE FEW /HPF; BILIRUBIN,URINE NEGATIVE (NEGATIVE); KETONES,URINE NEGATIVE (NEGATIVE); LEUKOCYTE ESTERASE ,URINE TRACE (NEGATIVE); NITRITE,URINE NEGATIVE (NEGATIVE)
[2020-04-20] MEDS ORDERED: NS IV 1000 ML 1,000 ML IV SCH (07:30)
[2020-04-20] MEDS ORDERED: KETOROLAC 30 MG/ML VIAL IVP ONE (07:30)
[2020-04-20] MEDS ORDERED: ONDANSETRON 4 MG/2 ML (SDV) Z0FRAN IVP ONE (07:30)
--- NOTE | 2020-04-20 07:35 | ED GI ---
General Chief Complaint: Abdominal/GI Problems Stated Complaint: ABD PAIN Nursing Triage Note: Patient reports sudden onset of bilateral lower abdominal pain/lower back pain this morning while at work. She reports the pain is constant, rated 8/10, states she has had some diarrhea this morning, some nausea, denies vomiting. LMP one week ago. Sepsis Screen: No Definite Risk History of Present Illness Date Seen by Provider: Apr 20, 2020 Time Seen by Provider: 07:10 Initial Comments 29-year-old female presents with left lower abdominal and flank pain that began suddenly this morning. Associated nausea without vomiting and 1 loose stool without diarrhea. No preceding illness, fever or chills. No chest pain, sh ortness of air. Denies dysuria or hematuria. Last menstrual period 1 week ago and was "normal". Does not think she is . No history of kidney stones, no significant history of UTIs. Allergies and Home Medications Allergies Coded Allergies: clindamycin (Verified Allergy, Intermediate, oral blisters, SOB, 01/01/19) cinnamon (Verified Allergy, Unknown, 10/07/19) Home Medications Acetaminophen 500 Mg Tablet, 1,000 MG PO Q8HR Prescribed by: JOBY MEEKS on 10/08/19 0841 Acetaminophen with Codeine 1 Each Tablet, 1 EACH PO Q6H Prescribed by: ROULA MICHEL on 10/11/19 1014 Ciprofloxacin HCl 500 Mg Tablet, 500 MG PO BID Prescribed by: ROULA MICHEL on 10/11/19 1014 Docusate Sodium 100 Mg Capsule, 100 MG PO BID Prescribed by: JOBY MEEKS on 10/08/19 0841 Ferrous Sulfate 325 Mg Tablet, 325 MG PO BID WITH MEALS Prescribed by: JOBY MEEKS on 10/08/19 0841 Ibuprofen 600 Mg Tablet, 600 MG PO Q6H Prescribed by: JOBY MEEKS on 10/08/19 0841 Phenazopyridine HCl 200 Mg Tablet, 1 TAB PO BID Prescribed by: ROULA MICHEL on 10/11/19 1014 Patient Home Medication List Home Medication List Reviewed: Yes Review of Systems Review of Systems Constitutional: No chills, No fever, No malaise Respiratory: Denies Cough, Denies Shortness of Air Cardiovascular: Denies Chest Pain, Denies Palpitations, Denies Syncope Gastrointestinal: See HPI, Abdominal Pain; Denies Constipated, Denies Diarrhea; Nausea; Denies Poor Fluid Intake, Denies Vomiting Genitourinary: See HPI; Denies Burning, Denies Discharge, Denies Drainage, Denies Frequency; Flank Pain; Denies Hematuria, Denies Incontinence, Denies Urgency Musculoskeletal: No back pain, No joint pain Skin: No change in color, No rash Past Fztqbtc-Vmnwmc-Srrckd Hx Past Med/Social Hx: Reviewed Nursing Past Med/Soc Hx Patient Social History Alcohol Use: Denies Use Smoking Status: Former Smoker Type Used: Cigarettes Former Smoker, Quit: Feb 05, 2019 2nd Hand Smoke Exposure: Yes Recent Infectious Disease Expo: No Recent Hopitalizations: No Immunizations Up To Date Tetanus Booster (TDap): More than 5yrs PED Vaccines UTD: Yes Date of Influenza Vaccine: Dec 17, 2012 Seasonal Allergies Seasonal Allergies: No Past Medical History Surgeries: Yes (Umbilical herniorrhaphy 07/04/12,D&C, ENDOMETRIOSIS SCRAPING, d&c, Mesh Tommy) Abdominal, Adenoidectomy, Appendectomy, Gallbladder, Tonsillectomy Respiratory: No Cardiac: No Neurological: No (only if pt takes tramadol. last seizere 04/2011) Reproductive Disorders: Yes (CPP) Female Reproductive Disorders: Endometriosis, Ovarian Cyst Sexually Transmitted Disease: No HIV/AIDS: No Genitourinary: Yes Kidney Infection, UTI-Chronic Gastrointestinal: Yes (umbilical hernia removed 11/25/18) Abdominal Hernia, Gall Bladder Disease Musculoskeletal: No Chronic Back Pain Endocrine: No HEENT: No Cancer: No Psychosocial: Yes Anxiety, Depression Integumentary: No Blood Disorders: No Adverse Reaction/Blood Tranf: No Family Medical History Patient reports no known family medical history. No Pertinent Family Hx Physical Exam Vital Signs Vital Signs - First Documented 04/20/20 07:13 Temp 36.3 Pulse 71 Resp 18 B/P (MAP) 115/72 (86) Pulse Ox 99 O2 Delivery Room Air Capillary Refill : Less Than 3 Seconds Height/Weight/BMI Height: 4'10.00" Weight: 125lbs. 0oz. 56.812781av; 27.00 BMI Method:Stated General Appearance: WD/WN, no apparent distress Respiratory: chest non-tender, lungs clear, normal breath sounds, no respiratory distress, no accessory muscle use Cardiovascular: regular rate, rhythm, no edema, no gallop, no JVD Gastrointestinal: normal bowel sounds, soft; No distended, No guarding, No rebound; tenderness (LLQ, flank and CVA) Extremities: non-tender, no pedal edema Back: normal inspection, no vertebral tenderness, CVA tenderness (L) Progress/Results/Core Measures Results/Orders Lab Results Laboratory Tests Test 04/20/20 07:05 04/20/20 07:25 Range/Units Urine Color YELLOW Urine Clarity CLEAR Urine pH 6.0 5-9 Urine Specific [place] 1.020 1.016-1.022 Urine Protein NEGATIVE NEGATIVE Urine Glucose (UA) NEGATIVE NEGATIVE Urine Ketones NEGATIVE NEGATIVE Urine Nitrite NEGATIVE NEGATIVE Urine Bilirubin NEGATIVE NEGATIVE Urine Urobilinogen NORMAL < = 1.0 MG/DL Urine Leukocyte Esterase TRACE H NEGATIVE Urine RBC (Auto) NEGATIVE NEGATIVE Urine RBC NONE /HPF Urine WBC 2-5 /HPF Urine Squamous Epithelial Cells 10-25 H /HPF Urine Crystals NONE /LPF Urine Bacteria FEW H /HPF Urine Casts NONE /LPF Urine Mucus NEGATIVE /LPF Urine Culture Indicated YES Urine Test NEGATIVE NEGATIVE White Blood Count 5.7 4.3-11.0 10^3/uL Red Blood Count 4.41 4.35-5.85 10^6/uL Hemoglobin 12.4 11.5-16.0 G/DL Hematocrit 38 35-52 % Mean Corpuscular Volume 86 80-99 FL Mean Corpuscular Hemoglobin 28 25-34 PG Mean Corpuscular Hemoglobin Concent 33 32-36 G/DL Red Cell Distribution Width 14.3 10.0-14.5 % Platelet Count 307 130-400 10^3/uL Mean Platelet Volume 10.9 H 7.4-10.4 FL Immature Granulocyte % (Auto) 0 % Neutrophils (%) (Auto) 61 42-75 % Lymphocytes (%) (Auto) 29 12-44 % Monocytes (%) (Auto) 7 0-12 % Eosinophils (%) (Auto) 3 0-10 % Basophils (%) (Auto) 1 0-10 % Neutrophils # (Auto) 3.5 1.8-7.8 X 10^3 Lymphocytes # (Auto) 1.6 1.0-4.0 X 10^3 Monocytes # (Auto) 0.4 0.0-1.0 X 10^3 Eosinophils # (Auto) 0.2 0.0-0.3 10^3/uL Basophils # (Auto) 0.1 0.0-0.1 10^3/uL Immature Granulocyte # (Auto) 0.0 0.0-0.1 10^3/uL Sodium Level 137 135-145 MMOL/L Potassium Level 3.5 L 3.6-5.0 MMOL/L Chloride Level 104 98-107 MMOL/L Carbon Dioxide Level 24 21-32 MMOL/L Anion Gap 9 5-14 MMOL/L Blood Urea Nitrogen 6 L 7-18 MG/DL Creatinine 0.76 0.60-1.30 MG/DL Estimat Glomerular Filtration Rate > 60 BUN/Creatinine Ratio 8 Glucose Level 92 70-105 MG/DL Calcium Level 9.2 8.5-10.1 MG/DL Corrected Calcium 8.9 8.5-10.1 MG/DL Total Bilirubin 0.3 0.1-1.0 MG/DL Aspartate Amino Transf (AST/SGOT) 13 5-34 U/L Alanine Aminotransferase (ALT/SGPT) 9 0-55 U/L Alkaline Phosphatase 57 40-136 U/L Total Protein 7.1 6.4-8.2 GM/DL Albumin 4.4 3.2-4.5 GM/DL My Orders Orders - ROVENSTINE,ROULA L DO Ua Culture If Indicated (04/20/20 07:12) Hcg,Qualitative Urine (04/20/20 07:22) Urine Culture (04/20/20 07:05) Ondansetron Injection (Zofran Injectio (04/20/20 07:30) Ketorolac Injection (Toradol Injection) (04/20/20 07:30) Ns Iv 1000 Ml (Sodium Chloride 0.9%) (04/20/20 07:30) Ed Iv/Invasive Line Start (04/20/20 07:28) Abdomen Flat & Upright/Decub (04/20/20 07:36) Cbc With Automated Diff (04/20/20 07:36) Comprehensive Metabolic Panel (04/20/20 07:36) Medications Given in ED Current Medications Medications Dose Ordered Sig/Damion Route Start Time Stop Time Status Last Admin Dose Admin Ketorolac Tromethamine 30 mg ONCE ONCE IVP 04/20/20 07:30 04/20/20 07:32 DC 04/20/20 07:41 30 MG Ondansetron HCl 4 mg ONCE ONCE IVP 04/20/20 07:30 04/20/20 07:32 DC 04/20/20 07:41 4 MG Vital Signs/I&O 04/20/20 07:13 Temp 36.3 Pulse 71 Resp 18 B/P (MAP) 115/72 (86) Pulse Ox 99 O2 Delivery Room Air Blood Pressure Mean: 86 Departure Impression Primary Impression: Abdominal pain Disposition: 01 HOME, SELF-CARE Condition: Improved Departure-Patient Inst. Decision time for Depature: 08:02 Referrals: NO,LOCAL PHYSICIAN (PCP/Family) Primary Care Physician Patient Instructions: CLEAR LIQUID DIET ADULT/CHILD, Severe Abdominal Pain, Adult (DC) Add. Discharge Instructions: 1. Follow up with your Primary Care Provider (PCP) in 2 days if not improving, return to the ER sooner if worsening symptoms. 2. Follow the instructions for a "clear liquid diet" until your pain resolves, then advance back to your normal diet as tolerated. 3. Take the Ibuprofen as instructed for pain and the Zofran as needed or nausea All discharge instructions reviewed with patient and/or family. Voiced understanding. Scripts Ondansetron (Ondansetron Odt) 4 Mg Tab.rapdis 4 MG PO TID for Nausea, #10 TAB Prov: ROULA MICHEL DO 04/20/20 Ibuprofen (Ibuprofen) 800 Mg Tablet 800 MG PO Q8H PRN for PAIN, #30 TAB 0 Refills Prov: ROULA MICHEL DO 04/20/20 ROULA MICHEL DO Apr 20, 2020 07:35
[2020-04-20 07:44] LABS: BASOPHILS % (AUTO) 1 % (0-10); EOSINOPHILS % (AUTO) 3 % (0-10); HEMATOCRIT 38 % (35-52); HEMOGLOBIN 12.4 G/DL (11.5-16.0); LYMPHOCYTES % (AUTO) 29 % (12-44); MEAN CORPUSCULAR HEMOGLOBIN 28 PG (25-34); MEAN CORPUSCULAR HGB CONC 33 G/DL (32-36); MEAN CORPUSCULAR VOLUME 86 FL (80-99); MEAN PLATELET VOLUME 10.9 FL (7.4-10.4); MONOCYTES % (AUTO) 7 % (0-12); NEUTROPHILS % (AUTO) 61 % (42-75); PLATELET COUNT 307 10^3/uL (130-400); WHITE BLOOD COUNT 5.7 10^3/uL (4.3-11.0)
[2020-04-20 07:45] LABS: BASOPHILS # (AUTO) 0.1 10^3/uL (0.0-0.1); EOSINOPHILS # (AUTO) 0.2 10^3/uL (0.0-0.3); LYMPHOCYTES # (AUTO) 1.6 X 10^3 (1.0-4.0); MONOCYTES # (AUTO) 0.4 X 10^3 (0.0-1.0); NEUTROPHILS # (AUTO) 3.5 X 10^3 (1.8-7.8)
[2020-04-20 07:59] LABS: ALANINE AMINOTRANSFERASE 9 U/L (0-55); ALBUMIN 4.4 GM/DL (3.2-4.5); ALKALINE PHOSPHATASE 57 U/L (40-136); BILIRUBIN,TOTAL 0.3 MG/DL (0.1-1.0); BUN/CREATININE RATIO 8; CALCIUM 9.2 MG/DL (8.5-10.1); CARBON DIOXIDE 24 MMOL/L (21-32); CHLORIDE 104 MMOL/L (98-107); CREATININE SERUM 0.76 MG/DL (0.60-1.30); GFR ESTIMATED > 60; GLUCOSE 92 MG/DL (70-105); POTASSIUM 3.5 MMOL/L (3.6-5.0); SODIUM 137 MMOL/L (135-145); TOTAL PROTEIN 7.1 GM/DL (6.4-8.2)
[2020-04-20] MEDS ORDERED: IBUP-1780 PO (08:04)
[2020-04-20] MEDS ORDERED: ONDA4TAB11 PO (08:04)
[2020-04-20 08:14] VITALS: BP 116/82
--- NOTE | 2020-04-20 08:36 | Diagnostic Imaging Report ---
EXAMINATION: AP supine and upright abdomen. INDICATION: Left lower quadrant abdominal pain and left flank pain. COMPARISON: 05/12/2013 FINDINGS: There is a relatively gasless abdomen, with mild gaseous distention of the stomach. No evidence of obstruction. Mild retained stool is noted in the region of the cecum. No unusual stool burden. No organomegaly or abnormal abdominal calcifications. No evidence of pneumoperitoneum. Multiple phleboliths overlie the pelvis. The visualized lung bases are clear. No acute osseous abnormality is identified. IMPRESSION: Nonobstructive bowel gas pattern. No radiographic evidence of acute abdominal process. Dictated by: Dictated on workstation # [id number]
== END 2020-04-20 08:16 | disposition home or self-care (01) ==
LOC: EDUNIT# 06:58 → ER FS 07:01
DX: R10.32 Left lower quadrant pain (principal); Z87.891 Personal history of nicotine dependence; Z88.1 Allergy status to other antibiotic agents
CPT/HCPCS: 36415; 74019; 80053; 81000; 84703; 85025; 87088

== ENCOUNTER → 2020-06-11 | Outpatient (CLI) | payer MEDICAID ==
[~2020-06-11] MED LIST changes: -CIPR500T4 PO; +CIPR500T5 PO; +IBUP-1780 PO
--- NOTE | 2020-06-11 13:53 | Diagnostic Imaging Report ---
INDICATION: Abdominal pain, constipation. FINDINGS: No suspicious radiopaque calculi. There is pelvic surgical clips present. The bowel gas pattern normal. Some right lower quadrant opacity is better seen on previous CT and likely from previous appendectomy. No suspicious radiopaque urinary tract stones. IMPRESSION: No acute appearing abnormality. Dictated by: Dictated on workstation # [id number]
== END ==
LOC: RAD FS 12:36
PROVIDERS: ATTEND Nurse Practitioner Family
DX: K59.09 Other constipation (principal); R11.2 Nausea with vomiting, unspecified
CPT/HCPCS: 74018

== ENCOUNTER 2020-07-11 09:21 | Emergency (ER) | payer MEDICAID ==
[~2020-07-11] VITALS: Ht 149 cm; Wt 59.0 kg
[2020-07-11] MEDS ORDERED: ONDANSETRON 4 MG/2 ML (SDV) Z0FRAN IVP ONE ×2 (09:45→10:45)
[2020-07-11] MEDS ORDERED: NS IV 1000 ML 1,000 ML IV SCH (09:45)
[2020-07-11] MEDS ORDERED: morphine INJ 10 MG/ML 1ML (SYR OR VIAL) IVP STA (09:45)
[2020-07-11 09:49] LABS: BASOPHILS # (AUTO) 0.1 10^3/uL (0.0-0.1); BASOPHILS % (AUTO) 1 % (0-10); EOSINOPHILS % (AUTO) 0 % (0-10); HEMATOCRIT 40 % (35-52); HEMOGLOBIN 13.4 G/DL (11.5-16.0); LYMPHOCYTES # (AUTO) 1.3 X 10^3 (1.0-4.0); LYMPHOCYTES % (AUTO) 14 % (12-44); MEAN CORPUSCULAR HEMOGLOBIN 29 PG (25-34); MEAN CORPUSCULAR HGB CONC 33 G/DL (32-36); MEAN CORPUSCULAR VOLUME 87 FL (80-99); MEAN PLATELET VOLUME 10.8 FL (7.4-10.4); MONOCYTES # (AUTO) 0.6 X 10^3 (0.0-1.0); MONOCYTES % (AUTO) 7 % (0-12); NEUTROPHILS # (AUTO) 7.5 X 10^3 (1.8-7.8); NEUTROPHILS % (AUTO) 78 % (42-75); PLATELET COUNT 341 10^3/uL (130-400); WHITE BLOOD COUNT 9.5 10^3/uL (4.3-11.0)
[2020-07-11 09:50] LABS: BACTERIA,URINE TRACE /HPF; BILIRUBIN,URINE NEGATIVE (NEGATIVE); CLARITY,URINE SLIGHTLY CLOUDY; COLOR,URINE YELLOW; GLUCOSE, URINE (UA) NEGATIVE (NEGATIVE); KETONES,URINE NEGATIVE (NEGATIVE); LEUKOCYTE ESTERASE ,URINE NEGATIVE (NEGATIVE); NITRITE,URINE NEGATIVE (NEGATIVE); PROTEIN,URINE NEGATIVE (NEGATIVE); RBC,URINE 0-2 /HPF
[2020-07-11 10:00] LABS: CARBON DIOXIDE 21 MMOL/L (21-32); CHLORIDE 104 MMOL/L (98-107); POTASSIUM 4.1 MMOL/L (3.6-5.0); SODIUM 136 MMOL/L (135-145)
[2020-07-11 10:01] LABS: ALANINE AMINOTRANSFERASE 9 U/L (0-55); ALBUMIN 4.6 GM/DL (3.2-4.5); ALKALINE PHOSPHATASE 71 U/L (40-136); BILIRUBIN,TOTAL 0.4 MG/DL (0.1-1.0); BUN/CREATININE RATIO 18; CALCIUM 9.4 MG/DL (8.5-10.1); CREATININE SERUM 0.68 MG/DL (0.60-1.30); GFR ESTIMATED > 60; GLUCOSE 93 MG/DL (70-105); TOTAL PROTEIN 7.5 GM/DL (6.4-8.2)
[2020-07-11 10:06] LABS: LIPASE 19 U/L (8-78)
--- NOTE | 2020-07-11 10:12 | ED Abdominal Pain ---
General Chief Complaint: Abdominal/GI Problems Stated Complaint: RIGHT SIDE ABDOMINAL PAIN | VOMITING Nursing Triage Note: RIGHT LOWER PELVIC PAIN THAT STARTED YESTERDAY. PT HAS AN EXTENSIVE ABDOMINAL SURGERY HISTORY AND IS SUPPOSE TO BE GETTING A CT SCAN THROUGH HER DR BUT THEY HAVE NOT CALLED HER YET TO SCHEDULE IT. SHE REPORTS 2 EPISODES OF VOMITING THIS AM. SHE HAS NOT TAKEN ANY MEDICATIONS AT HOME FOR HER COMPLAINTS. Sepsis Screen: No Definite Risk History of Present Illness Date Seen by Provider: Jul 11, 2020 Time Seen by Provider: 10:08 Initial Comments Patient presenting to the emergency department for evaluation of right lower quadrant abdominal pain that started yesterday and has been persistent. Patient says it is sharp and crampy has been constant and associated with nausea vomiting and constipation but no black or bloody stools. She has had multiple surgeries including cholecystectomy and surgeries for endometriosis and she thought she has had an appendectomy however her mother called her general surgeon and they said that she has not had an appendectomy. Patient has had prior CTs here and it appears that her appendix has been removed based off the CT reports. Patient has had multiple bowel issues before in the past and has had a colonoscopy. She says she is in the process of getting further evaluation for her abdominal pain and Dr. METCALF's office was supposed to schedule her CT scan however she has not had it done. Patient is in no obvious distress with normal vital signs. Allergies and Home Medications Allergies Coded Allergies: clindamycin (Verified Allergy, Intermediate, oral blisters, SOB, 01/01/19) cinnamon (Verified Allergy, Unknown, 10/07/19) Home Medications Acetaminophen 500 Mg Tablet, 1,000 MG PO Q8HR Prescribed by: JOBY MEEKS on 10/08/19 08 Acetaminophen with Codeine 1 Each Tablet, 1 EACH PO Q6H Prescribed by: ROULA MICHEL on 10/11/19 1014 Ciprofloxacin HCl 500 Mg Tablet, 500 MG PO BID Prescribed by: ROULA MICHEL on 10/11/19 1014 Docusate Sodium 100 Mg Capsule, 100 MG PO BID Prescribed by: JOBY MEEKS on 10/08/19 0841 Ferrous Sulfate 325 Mg Tablet, 325 MG PO BID WITH MEALS Prescribed by: JOBY MEEKS on 10/08/19 0841 Ibuprofen 600 Mg Tablet, 600 MG PO Q6H Prescribed by: JOBY MEEKS on 10/08/19 0841 Ibuprofen 800 Mg Tablet, 800 MG PO Q8H PRN for PAIN Prescribed by: ROULA MICHEL on 04/20/20 0804 Ondansetron 4 Mg Tab.rapdis, 4 MG PO TID Prescribed by: ROULA MICHEL on 04/20/20 0804 Phenazopyridine HCl 200 Mg Tablet, 1 TAB PO BID Prescribed by: ROULA MICHEL on 10/11/19 1014 Patient Home Medication List Home Medication List Reviewed: Yes Review of Systems Review of Systems Constitutional: no symptoms reported EENTM: No Symptoms Reported Respiratory: No Symptoms Reported Cardiovascular: No Symptoms Reported Gastrointestinal: Abdominal Pain, Constipated, Nausea, Vomiting Genitourinary: No Symptoms Reported Musculoskeletal: no symptoms reported Psychiatric/Neurological: No Symptoms Reported All Other Systems Reviewed Negative Unless Noted: Yes Past Nckpqos-Gazaee-Hwitpn Hx Patient Social History Alcohol Use: Denies Use Smoking Status: Current Everyday Smoker Type Used: Cigarettes, Electronic/Vapor Former Smoker, Quit: Feb 05, 2019 2nd Hand Smoke Exposure: Yes Recent Infectious Disease Expo: No Recent Hopitalizations: No Immunizations Up To Date Tetanus Booster (TDap): More than 5yrs PED Vaccines UTD: Yes Date of Influenza Vaccine: Dec 17, 2012 Seasonal Allergies Seasonal Allergies: No Past Medical History Surgeries: Yes (Umbilical herniorrhaphy 07/04/12,D&C, ENDOMETRIOSIS SCRAPING, d&c, Mesh Tommy) Abdominal, Adenoidectomy, Appendectomy, Bowel Surgery, Gallbladder, Tonsillectomy, Tubal Ligation Respiratory: No Cardiac: No Neurological: No (only if pt takes tramadol. last seizere 04/2011) Reproductive Disorders: Yes (CPP) Female Reproductive Disorders: Endometriosis, Ovarian Cyst Sexually Transmitted Disease: No HIV/AIDS: No Genitourinary: Yes Kidney Infection, UTI-Chronic Gastrointestinal: Yes (umbilical hernia removed 11/25/18) Abdominal Hernia, Gall Bladder Disease Musculoskeletal: No Chronic Back Pain Endocrine: No HEENT: No Cancer: No Psychosocial: Yes Anxiety, Depression Integumentary: No Blood Disorders: No Adverse Reaction/Blood Tranf: No Family Medical History Patient reports no known family medical history. No Pertinent Family Hx Physical Exam Vital Signs Vital Signs - First Documented 07/11/20 09:21 Temp 36.3 Pulse 82 Resp 18 B/P (MAP) 129/75 (93) Pulse Ox 98 O2 Delivery Room Air Capillary Refill : Less Than 3 Seconds Height/Weight/BMI Height: 4'10.00" Weight: 125lbs. 0oz. [id number]; 26.00 BMI Method:Stated General Appearance: WD/WN, no apparent distress Respiratory: lungs clear Cardiovascular: regular rate, rhythm Gastrointestinal: soft, tenderness (Right lower quadrant without rebound or guarding) Extremities: normal capillary refill Neurologic/Psychiatric: no motor/sensory deficits Skin: warm/dry Progress/Results/Core Measures Results/Orders Lab Results Laboratory Tests Test 07/11/20 09:25 07/11/20 09:30 Range/Units Urine Color YELLOW Urine Clarity SLIGHTLY CLOUDY Urine pH 7.0 5-9 Urine Specific [place] 1.015 L 1.016-1.022 Urine Protein NEGATIVE NEGATIVE Urine Glucose (UA) NEGATIVE NEGATIVE Urine Ketones NEGATIVE NEGATIVE Urine Nitrite NEGATIVE NEGATIVE Urine Bilirubin NEGATIVE NEGATIVE Urine Urobilinogen 0.2 < = 1.0 MG/DL Urine Leukocyte Esterase NEGATIVE NEGATIVE Urine RBC (Auto) NEGATIVE NEGATIVE Urine RBC 0-2 /HPF Urine WBC 10-25 H /HPF Urine Squamous Epithelial Cells 10-25 H /HPF Urine Crystals NONE /LPF Urine Bacteria TRACE /HPF Urine Casts NONE /LPF Urine Mucus NEGATIVE /LPF Urine Culture Indicated YES White Blood Count 9.5 4.3-11.0 10^3/uL Red Blood Count 4.65 4.35-5.85 10^6/uL Hemoglobin 13.4 11.5-16.0 G/DL Hematocrit 40 35-52 % Mean Corpuscular Volume 87 80-99 FL Mean Corpuscular Hemoglobin 29 25-34 PG Mean Corpuscular Hemoglobin Concent 33 32-36 G/DL Red Cell Distribution Width 13.3 10.0-14.5 % Platelet Count 341 130-400 10^3/uL Mean Platelet Volume 10.8 H 7.4-10.4 FL Immature Granulocyte % (Auto) 0 % Neutrophils (%) (Auto) 78 H 42-75 % Lymphocytes (%) (Auto) 14 12-44 % Monocytes (%) (Auto) 7 0-12 % Eosinophils (%) (Auto) 0 0-10 % Basophils (%) (Auto) 1 0-10 % Neutrophils # (Auto) 7.5 1.8-7.8 X 10^3 Lymphocytes # (Auto) 1.3 1.0-4.0 X 10^3 Monocytes # (Auto) 0.6 0.0-1.0 X 10^3 Eosinophils # (Auto) 0.0 0.0-0.3 10^3/uL Basophils # (Auto) 0.1 0.0-0.1 10^3/uL Immature Granulocyte # (Auto) 0.0 0.0-0.1 10^3/uL Sodium Level 136 135-145 MMOL/L Potassium Level 4.1 3.6-5.0 MMOL/L Chloride Level 104 98-107 MMOL/L Carbon Dioxide Level 21 21-32 MMOL/L Anion Gap 11 5-14 MMOL/L Blood Urea Nitrogen 12 7-18 MG/DL Creatinine 0.68 0.60-1.30 MG/DL Estimat Glomerular Filtration Rate > 60 BUN/Creatinine Ratio 18 Glucose Level 93 70-105 MG/DL Calcium Level 9.4 8.5-10.1 MG/DL Corrected Calcium 8.5-10.1 MG/DL Total Bilirubin 0.4 0.1-1.0 MG/DL Aspartate Amino Transf (AST/SGOT) 15 5-34 U/L Alanine Aminotransferase (ALT/SGPT) 9 0-55 U/L Alkaline Phosphatase 71 40-136 U/L Total Protein 7.5 6.4-8.2 GM/DL Albumin 4.6 H 3.2-4.5 GM/DL Lipase 19 8-78 U/L My Orders Orders - SKINNY SHI DO Cbc With Automated Diff (07/11/20 09:45) Comprehensive Metabolic Panel (07/11/20 09:45) Lipase (07/11/20 09:45) Ua Culture If Indicated (07/11/20 09:45) Ct Abdomen/Pelvis W (07/11/20 09:45) Iv/Invasive Line Insertion .IV start (07/11/20 09:45) Ns Iv 1000 Ml (Sodium Chloride 0.9%) (07/11/20 09:45) Morphine Injection (Morphine Injection (07/11/20 09:45) Ondansetron Injection (Zofran Injectio (07/11/20 09:45) Urine Culture (07/11/20 09:25) Iohexol Injection (Omnipaque 350 Mg/Ml 1 (07/11/20 10:30) Received Contrast (Hold Metformin- Contr (07/11/20 10:30) Ns (Ivpb) (Sodium Chloride 0.9% Ivpb Bag (07/11/20 10:30) Fentanyl Inj (Sublimaze Injection) (07/11/20 10:45) Ondansetron Injection (Zofran Injectio (07/11/20 10:45) Medications Given in ED Current Medications Medications Dose Ordered Sig/Damion Route Start Time Stop Time Status Last Admin Dose Admin Fentanyl Citrate 50 mcg ONCE ONCE IVP 07/11/20 10:45 07/11/20 10:46 DC 07/11/20 10:38 50 MCG Iohexol 100 ml ONCE ONCE IV 07/11/20 10:30 07/11/20 10:31 DC 07/11/20 10:26 100 ML Ondansetron HCl 4 mg ONCE ONCE IVP 07/11/20 09:45 07/11/20 09:47 DC 07/11/20 09:49 4 MG Ondansetron HCl 4 mg ONCE ONCE IVP 07/11/20 10:45 07/11/20 10:46 DC 07/11/20 10:37 4 MG Sodium Chloride 100 ml ONCE ONCE IV 07/11/20 10:30 07/11/20 10:31 DC 07/11/20 10:26 80 ML Vital Signs/I&O 07/11/20 09:21 Temp 36.3 Pulse 82 Resp 18 B/P (MAP) 129/75 (93) Pulse Ox 98 O2 Delivery Room Air Blood Pressure Mean: 93 Progress Progress Note : Progress Note Patient with nonspecific abdominal pain with extensive surgical history she has not had fevers chills dysuria hematuria vaginal bleeding or vaginal discharge. I will check labs imaging treat symptoms and reassess. Patient's labs are unremarkable and her urine appears to be contaminated. CT shows findings of colitis but no surgical pathology. Patient's pain and nausea has improved and her repeat abdominal exam is benign with no focal tenderness rebound or guarding. I discussed treatment options for her colitis and the need for follow-up and she said she would like to go ahead with antibiotics and I told her that resting her bowel may help more than anything else with a soft liquid diet. I told her to follow with her surgeon this week and to call them tomorrow morning. Patient aware and agreeable with plan for discharge and verbalized understanding of the need for short-term follow-up and strict ED return precautions discussed including worsening pain fevers vomiting or other general concerns. Departure Impression Primary Impression: Colitis Additional Impressions: Abdominal pain Nausea and vomiting Disposition: HOME, SELF-CARE Condition: Stable Departure-Patient Inst. Referrals: NO,LOCAL PHYSICIAN (PCP/Family) Primary Care Physician Patient Instructions: Colitis Scripts Ondansetron (Ondansetron Odt) 4 Mg Tab.rapdis 4 MG PO Q6H PRN for NAUSEA/VOMITING-1ST LINE, #14 TAB Prov: SKINNY SHI DO 07/11/20 Hydrocodone/Acetaminophen (Hydrocodone-Acetamin 5-325 mg) 1 Each Tablet 1 TAB PO Q6H PRN for PAIN-MODERATE (5-7), #10 TAB Prov: SKINNY SHI DO 07/11/20 Metronidazole (Flagyl) 500 Mg Tablet 500 MG PO BID for 7 Days, TAB Prov: SKINNY SHI DO 07/11/20 Ciprofloxacin HCl (Ciprofloxacin HCl) 500 Mg Tablet 500 MG PO BID, #14 TAB Prov: SKINNY SHI DO 07/11/20 SKINNY SHI DO Jul 11, 2020 10:12
[2020-07-11] MEDS ORDERED: NS 100 ML (IVPB) BAG IV ONE (10:30)
[2020-07-11] MEDS ORDERED: HOLD METFORMIN - RECEIVED CONTRAST 20 ML VIAL IV SCH (10:30)
[2020-07-11] MEDS ORDERED: IOHEXOL 350 MG/ML 100 ML (OMNIPAQUE 350) VIAL IV ONE (10:30)
[2020-07-11] MEDS ORDERED: fentaNYL INJ 100 MCG/2 ML AMP IVP ONE (10:45)
--- NOTE | 2020-07-11 10:47 | Diagnostic Imaging Report ---
PROCEDURE: CT abdomen and pelvis with contrast. TECHNIQUE: Multiple contiguous axial images were obtained through the abdomen and pelvis after administration of intravenous contrast. Auto Exposure Controls were utilized during the CT exam to meet ALARA standards for radiation dose reduction. All CT scans use one or more of the following dose optimizing techniques: automated exposure control, MA and/or KvP adjustment based on patient size and exam type or iterative reconstruction. INDICATION: Right lower quadrant pain for 2 days with nausea and vomiting. COMPARISON: 01/29/2019 FINDINGS: The lung bases are clear. The heart is normal in size. There is no pericardial effusion. The liver demonstrates no focal lesions. There does appear to be some fatty infiltration adjacent to the falciform ligament. The gallbladder is not seen and appears to be resected. The spleen appears normal. The pancreas is normal. The adrenal glands appear normal. The kidneys are unremarkable with no focal lesion seen. There is no hydronephrosis. The bowel loops are nondistended without obstruction. There does appear to be wall thickening of the colon diffusely although this may be secondary to nondistention. A few diverticula are noted in the descending colon without diverticulitis. The appendix is not seen and appears to be resected. There is no secondary finding of appendicitis. The bowel loops are nondistended without obstruction. Surgical clips are seen in the pelvis bilaterally. No free fluid or free air is seen. No acute osseous abnormality is seen. IMPRESSION: 1. Mild diffuse colonic wall thickening, may be secondary to nondistention versus an inflammatory/infectious colitis. No obstruction is seen. Dictated by: Dictated on workstation # [id number]
[2020-07-11] MEDS ORDERED: ACHD5005 PO (10:58)
[2020-07-11] MEDS ORDERED: ONDA4TAB11 PO (10:58)
[2020-07-11] MEDS ORDERED: CIPR500T5 PO (10:58)
[2020-07-11] MEDS ORDERED: METR500T PO (10:58)
[2020-07-11 11:05] VITALS: BP 122/62
== END 2020-07-11 11:06 | disposition home or self-care (01) ==
LOC: EDUNIT# 09:21 → ER FS 09:23
DX: K52.9 Noninfective gastroenteritis and colitis, unspecified (principal); R11.2 Nausea with vomiting, unspecified; F17.210 Nicotine dependence, cigarettes, uncomplicated; F17.290 Nicotine dependence, other tobacco product, uncomplicated; Z88.1 Allergy status to other antibiotic agents
CPT/HCPCS: 36415; 74177; 80053; 81000; 83690; 85025; 87088

== ENCOUNTER 2020-07-12 15:11 | Inpatient (IN) | payer MEDICAID ==
[~2020-07-12] VITALS: Ht 149.9 cm; Wt 58.0 kg
[~2020-07-12 15:11] MED LIST changes: +ACHD5005 PO
[2020-07-12] MEDS ORDERED: NS IV 1000 ML 1,000 ML ONE (15:49)
[2020-07-12] MEDS ORDERED: PROMETHAZINE INJ 25 MG/ML (PHENERGAN) AMP IV PRN (16:00)
[2020-07-12] MEDS ORDERED: CATHETER FLUSH 10 ML SYR IV PRN (16:00)
[2020-07-12] MEDS: NS IV 1000 ML 1,000 ML IV SCH (16:04)
[2020-07-12] MEDS: fentaNYL INJ 100 MCG/2 ML AMP IV PRN ×2 (16:11→19:48)
[2020-07-12 16:22] LABS: BASOPHILS # (AUTO) 0.1 10^3/uL (0.0-0.1); BASOPHILS % (AUTO) 1 % (0-10); EOSINOPHILS # (AUTO) 0.1 10^3/uL (0.0-0.3); EOSINOPHILS % (AUTO) 1 % (0-10); HEMATOCRIT 37 % (35-52); HEMOGLOBIN 11.8 g/dL (11.5-16.0); LYMPHOCYTES # (AUTO) 1.6 10^3/uL (1.0-4.0); LYMPHOCYTES % (AUTO) 29 % (12-44); MEAN CORPUSCULAR HEMOGLOBIN 29 pg (25-34); MEAN CORPUSCULAR HGB CONC 32 g/dL (32-36); MEAN CORPUSCULAR VOLUME 91 fL (80-99); MEAN PLATELET VOLUME 10.8 fL (9.0-12.2); MONOCYTES # (AUTO) 0.5 10^3/uL (0.0-1.0); MONOCYTES % (AUTO) 9 % (0-12); NEUTROPHILS # (AUTO) 3.4 10^3/uL (1.8-7.8); NEUTROPHILS % (AUTO) 60 % (42-75); PLATELET COUNT 268 10^3/uL (130-400); WHITE BLOOD COUNT 5.6 10^3/uL (4.3-11.0)
[2020-07-12 16:49] LABS: ALANINE AMINOTRANSFERASE 9 U/L (0-55); ALKALINE PHOSPHATASE 54 U/L (40-136); BILIRUBIN,TOTAL 0.5 MG/DL (0.1-1.0); BUN/CREATININE RATIO 11; CALCIUM 8.8 MG/DL (8.5-10.1); CARBON DIOXIDE 23 MMOL/L (21-32); CHLORIDE 106 MMOL/L (98-107); CREATININE SERUM 0.75 MG/DL (0.60-1.30); GFR ESTIMATED > 60; GLUCOSE 81 MG/DL (70-105); POTASSIUM 3.6 MMOL/L (3.6-5.0); SODIUM 138 MMOL/L (135-145); TOTAL PROTEIN 6.7 GM/DL (6.4-8.2)
[2020-07-12] MEDS: FAMOTIDINE 20MG/2ML IV (PEPCID) IV SCH (19:45)
[2020-07-12] MEDS: metroNIDAZOLE 500MG/100ML IVPB 100 ML IV SCH (19:45)
[2020-07-12] MEDS: HYDROcodone/APAP 7.5 MG/325 MG (LORTAB, LORCET PLUS) TABLET PO PRN (19:49)
[2020-07-12] MEDS: ONDANSETRON 4 MG/2 ML (SDV) Z0FRAN IV PRN (19:49)
[2020-07-12] MEDS: CIPROFLOXACIN IV 400MG/200ML 200 ML IV SCH (21:03)
--- NOTE | 2020-07-12 21:16 | HISTORY AND PHYSICAL ---
DATE OF SERVICE: 07/12/2020 HISTORY OF PRESENT ILLNESS: The patient is a 29-year-old female who is known to us. She was initially seen for an umbilical hernia in 2012 after her and underwent repair. She then underwent a laparoscopic cholecystectomy and appendectomy. She then had another in 03/2017. During that , she did develop recurrence of hernia just superior to the previous mesh. On 11/25/2018, she underwent explantation of a previous mesh repair of recurrent ventral abdominal incisional hernia with mesh. She was then seen shortly after the surgery and had developed redness and continued discomfort in the umbilical region and did report fever and chills. She also reported drainage from the umbilical incision. She was started on antibiotics and eventually the infection did clear up. She was then seen again on 01/15/2019 and underwent removal of a suture granuloma in the office. She was then seen again on 01/22/2019 where she continued to have some purulent drainage from the incision as well as sweats and chills. She was started on another round of antibiotics. She continued to have issues and then later underwent explantation of infected mesh with primary closure of the incisional hernia. On today's visit, she did present to the office with a 2-day history of right-sided abdominal pain with nausea and vomiting. She reports that two days ago she was at work and did develop sharp abdominal pain as well as dizziness and a headache. She reports she had to leave work to go home due to the abdominal pain and did lie down. She reports that when she woke up the next morning, she did have nausea and vomiting and then continued sharp abdominal pain. She then presented to the emergency room at [place] and underwent a CT scan, which did show mild diffuse colonic wall thickening, which may be secondary to nondistention versus an inflammatory infectious colitis. She was started on oral antibiotics and pain medication and was discharged home. She was instructed to proceed with clear liquids and some soft foods, but reports that she has not been able to tolerate keeping her medications down and reports that she will usually throw up shortly after taking down. She does report, however, that she has been able to keep some liquids, but no food. She denied any fever or chills. She also reports that it has been approximately 3 days since her last bowel movement. Upon further questioning, she does not recall any family history of any Crohn's or ulcerative colitis; however, does not know all of her family history on her father's side. She does report, however, that in 2012, she did have a CAT scan for abdominal pain on the right side and was also found to have bowel wall thickening in the sigmoid colon at that time and did undergo a colonoscopy; however, this was normal. Upon further questioning, she does report that in the past she has had episodes of mucus in her stool as well as crampy abdominal pain and episodes of bright red blood in her stool. It was discussed with the patient that she may have some form of underlying low level inflammatory bowel disease. PAST MEDICAL HISTORY: Endometriosis. PAST SURGICAL HISTORY: Laparoscopic endometrial ablation x2 in 2013 and 2014, umbilical hernia repair in 2012, laparoscopic cholecystectomy and appendectomy in 2014, explantation of old mesh and incisional hernia repair in 2018, explantation of infected mesh in 2018, tubal ligation in 05/2020. ALLERGIES: CLINDAMYCIN. MEDICATIONS: Cipro 500 mg b.i.d., Flagyl 500 mg b.i.d., Lortab 5/325 mg p.r.n., Zofran 4 mg p.r.n. SOCIAL HISTORY: Positive for tobacco smoke for seven pack years, negative for alcohol. FAMILY HISTORY: Father, diabetes, stroke. Mother, hypertension. Maternal grandmother, ovarian cancer, diabetes, stroke, myocardial infarction. VITAL SIGNS: Blood pressure is . Current weight is 132.9 pounds, 5 feet 8 inches. REVIEW OF SYSTEMS: This is a well-nourished female in no acute distress. She is not experiencing any shortness of breath or difficulty breathing. No chest pain, palpitations or diaphoresis. She does report episodes of nausea and vomiting as well as right-sided sharp, crampy abdominal pain. She denies any diarrhea or constipation. She does report a history of mucousy stools as well as red blood per rectum. No dark tarry stools. No fever or chills. No recent inadvertent weight loss. All other review of systems negative. PHYSICAL EXAMINATION: CHEST: Clear. Good breath sounds bilaterally. HEART: Regular rate, no murmurs. EXTREMITIES: No lower extremity edema. Negative Homans sign. HEENT: No scleral icterus. NECK: No cervical lymphadenopathy. ABDOMEN: Soft, nondistended. There is some tenderness with mild to moderate palpation of the right side of the abdomen as well as lower middle abdomen. No palpable masses. No organomegaly. SKIN: Warm, dry and pink. NEUROLOGIC: Awake, alert and oriented x3. ASSESSMENT AND PLAN: A 29-year-old female with colitis as well as nausea and vomiting. At this time, she is unable to tolerate any oral fluids as well as her medication and only small amounts of liquid. We will proceed with admitting her for IV fluids as well as IV antibiotics and bowel rest with clear liquid diet. We will proceed with IV nausea medications as well as IV and oral pain medication as needed. Once her pain has improved and she is able to be advanced to a regular diet, then we will discharge her home. He was also explained to the patient that due to her symptoms that she will more than likely need to have a followup colonoscopy as an outpatient in 4 to 6 weeks. Job ID: [id number] DocumentID: [id number] Dictated Date: 07/12/2020 20:39:11 Welfare Officer Date: 07/12/2020 21:15:46 Dictated By: YANIV KINSEY APRN
[2020-07-12] MEDS: PROMETHAZINE INJ 25 MG/ML (PHENERGAN) AMP IV PRN (23:54)
[2020-07-13] MEDS: ONDANSETRON 4 MG/2 ML (SDV) Z0FRAN IV PRN ×3 (04:57→20:36)
[2020-07-13] MEDS: NS IV 1000 ML 1,000 ML IV SCH ×3 (04:57→17:15)
[2020-07-13] MEDS: fentaNYL INJ 100 MCG/2 ML AMP IV PRN ×3 (04:58→20:37)
[2020-07-13] MEDS: HYDROcodone/APAP 7.5 MG/325 MG (LORTAB, LORCET PLUS) TABLET PO PRN ×4 (04:58→20:35)
[2020-07-13] MEDS: FAMOTIDINE 20MG/2ML IV (PEPCID) IV SCH ×2 (08:36→20:21)
[2020-07-13] MEDS: metroNIDAZOLE 500MG/100ML IVPB 100 ML IV SCH ×2 (08:39→22:20)
[2020-07-13] MEDS: CIPROFLOXACIN IV 400MG/200ML 200 ML IV SCH ×2 (08:39→20:21)
[2020-07-13] MEDS ORDERED: ONDA4TAB11 PO (09:46)
[2020-07-13] MEDS ORDERED: ACHD5005 PO (09:46)
[2020-07-13] MEDS ORDERED: CIPR-225 PO (09:46)
[2020-07-13] MEDS ORDERED: METR-145 PO (09:46)
[2020-07-13] MEDS ORDERED: WHEA1POW6 PO (09:46)
--- NOTE | 2020-07-13 13:28 | Progress Note ---
Subjective Date Seen by a Provider: Jul 13, 2020 Time Seen by a Provider: 12:00 Subjective/Events-last exam doing ok. no nausea/vomiting however states after taking in clears she has crampy abd pain. no fever/chills. Objective Exam Vital Signs Date Time Temp Pulse Resp B/P (MAP) Pulse Ox O2 Delivery O2 Flow Rate FiO2 07/13/20 11:20 36.6 62 20 102/70 (81) 98 Room Air 07/13/20 07:54 36.6 45 20 100/64 (76) 100 Room Air 07/13/20 04:00 36.7 61 18 101/61 (74) 97 Room Air 07/12/20 23:48 36.3 65 18 104/58 (73) 96 Room Air 07/12/20 20:53 Room Air 07/12/20 20:53 36.3 45 18 101/58 (72) 96 Room Air 07/12/20 16:00 99 Room Air 07/12/20 16:00 36.4 54 18 113/57 (75) 99 Room Air I & O 07/13/20 07:00 Intake Total 1800 ml Balance 1800 ml Capillary Refill : General Appearance: No Apparent Distress HEENT: PERRL/EOMI Neck: Full Range of Motion Respiratory: Chest Non Tender, Lungs Clear, Normal Breath Sounds Cardiovascular: Regular Rate, Rhythm Gastrointestinal: normal bowel sounds, soft, tenderness Extremity: Normal Capillary Refill Neurologic/Psychiatric: Alert, Oriented x3 Skin: Normal Color Lymphatic: No Adenopathy Results Lab Laboratory Tests 07/12/20 16:16: White Blood Count 5.6, Red Blood Count 4.09, Hemoglobin 11.8, Hematocrit 37, Mean Corpuscular Volume 91, Mean Corpuscular Hemoglobin 29, Mean Corpuscular Hemoglobin Concent 32, Red Cell Distribution Width 13.2, Platelet Count 268, Mean Platelet Volume 10.8, Immature Granulocyte % (Auto) 0, Neutrophils (%) (Auto) 60, Lymphocytes (%) (Auto) 29, Monocytes (%) (Auto) 9, Eosinophils (%) (Auto) 1, Basophils (%) (Auto) 1, Neutrophils # (Auto) 3.4, Lymphocytes # (Auto) 1.6, Monocytes # (Auto) 0.5, Eosinophils # (Auto) 0.1, Basophils # (Auto) 0.1, Immature Granulocyte # (Auto) 0.0, Sodium Level 138, Potassium Level 3.6, Chloride Level 106, Carbon Dioxide Level 23, Anion Gap 9, Blood Urea Nitrogen 8, Creatinine 0.75, Estimat Glomerular Filtration Rate > 60, BUN/Creatinine Ratio 11, Glucose Level 81, Calcium Level 8.8, Corrected Calcium 8.8, Total Bilirubin 0.5, Aspartate Amino Transf (AST/SGOT) 13, Alanine Aminotransferase (ALT/SGPT) 9, Alkaline Phosphatase 54, Total Protein 6.7, Albumin 4.0 Assessment/Plan Assessment/Plan Assess & Plan/Chief Complaint colitis with abd pain and nausea/vomiting. conservative measures for now with bowel rest and abx. if doesnt improve will add steroids for suspected IBD. will also need endoscopy as OP. STEPHANIE METCALF MD Jul 13, 2020 13:28
[2020-07-13] MEDS: PROMETHAZINE INJ 25 MG/ML (PHENERGAN) AMP IV PRN (17:07)
[2020-07-13] MEDS ORDERED: ZOLPIDEM 5 MG (AMBIEN) TAB PO PRN (18:30)
[2020-07-14] MEDS: fentaNYL INJ 100 MCG/2 ML AMP IV PRN (01:56)
[2020-07-14] MEDS: HYDROcodone/APAP 7.5 MG/325 MG (LORTAB, LORCET PLUS) TABLET PO PRN ×2 (02:13→08:37)
[2020-07-14] MEDS: PROMETHAZINE INJ 25 MG/ML (PHENERGAN) AMP IV PRN (05:17)
[2020-07-14 08:00] VITALS: BP 95/56
[2020-07-14 08:36] LABS: BILIRUBIN,URINE NEGATIVE (NEGATIVE); CLARITY,URINE CLEAR; COLOR,URINE YELLOW; GLUCOSE, URINE (UA) NEGATIVE (NEGATIVE); KETONES,URINE NEGATIVE (NEGATIVE); LEUKOCYTE ESTERASE ,URINE NEGATIVE (NEGATIVE); NITRITE,URINE NEGATIVE (NEGATIVE); PROTEIN,URINE NEGATIVE (NEGATIVE)
[2020-07-14] MEDS: CIPROFLOXACIN IV 400MG/200ML 200 ML IV SCH (08:37)
[2020-07-14] MEDS: FAMOTIDINE 20MG/2ML IV (PEPCID) IV SCH (08:37)
[2020-07-14] MEDS: metroNIDAZOLE 500MG/100ML IVPB 100 ML IV SCH (08:37)
[2020-07-14] MEDS: NS IV 1000 ML 1,000 ML IV SCH (08:38)
[2020-07-14 09:29] LABS: BACTERIA,URINE NEGATIVE /HPF; SQUAMOUS EPITHELIAL CELL,UR RARE /HPF; WBC,URINE RARE /HPF
[2020-07-14] MEDS ORDERED: HYDR-3817 PO (12:22)
[2020-07-14] MEDS ORDERED: ONDN4T PO (12:22)
== END 2020-07-14 12:50 | disposition home or self-care (01) | DRG 392 ==
LOC: 4TH 15:35
PROVIDERS: ADMIT Surgery; ATTEND Surgery
DX: K58.9 Irritable bowel syndrome, unspecified (principal); R11.2 Nausea with vomiting, unspecified; F17.210 Nicotine dependence, cigarettes, uncomplicated; Z79.2 Long term (current) use of antibiotics; Z88.1 Allergy status to other antibiotic agents
CPT/HCPCS: 36415; 80053; 81000; 85025

== ENCOUNTER 2020-07-29 09:56 | Day surgery (SDC) | payer MEDICAID ==
[~2020-07-29] VITALS: Ht 147.3 cm; Wt 60.0 kg
[~2020-07-29 09:56] MED LIST changes: +CIPR-225 PO; +HYDR-3817 PO; +METR-145 PO; +ONDN4T PO; +WHEA1POW6 PO
[2020-07-29 10:13] LABS: BILIRUBIN,URINE NEGATIVE (NEGATIVE); CLARITY,URINE CLEAR; COLOR,URINE YELLOW; GLUCOSE, URINE (UA) NEGATIVE (NEGATIVE); KETONES,URINE NEGATIVE (NEGATIVE); LEUKOCYTE ESTERASE ,URINE NEGATIVE (NEGATIVE); NITRITE,URINE NEGATIVE (NEGATIVE); PROTEIN,URINE NEGATIVE (NEGATIVE)
--- NOTE | 2020-07-29 10:33 | ED Abdominal Pain ---
General Chief Complaint: Abdominal/GI Problems Stated Complaint: ABD PAIN Nursing Triage Note: PT REPORTS SEVERE ABDOMINAL PAIN WITH ONLY HAVING A BLOODY/YELLOW BILE APPEARING STOOL THIS AM. PT FOLLOWS WITH DR MASSEY AND WAS REFERED TO [facility] TO FOLLOW UP WITH THEM. PT HAS AN APPOINTMENT IN . PT REPORTS PAIN WAS SO SEVERE SHE HAD TO CALL INTO WORK. Sepsis Screen: No Definite Risk Source of Information: Patient Exam Limitations: No Limitations NPO Since: Last night (JESSICA LEY STUDENT) History of Present Illness Date Seen by Provider: July 29, 2020 Time Seen by Provider: 10:10 Initial Comments Pt presented to ED via private conveyance with complaints of abd pain and bloody diarrhea. She states she has an extensive history of bowel problems since 2012, with umbilical hernia repair, hernia mesh infection in 2019, cholecystectomy, appendectomy. Her abd pain has gotten worse over the past month and was seen in the [facility] on 07/26 for abd pain/constipation. She has taken Bentyl and Ibuprofen with no relief. She started having multiple episodes of bloody diarrhea this morning, which she has not experienced before. She had a CT scan on 07/11 that showed diffuse bowel wall thickening. She is scheduled with [facility] in September to f/u with her bowel issues. She states that labs were sent out for Crohns and Celiac disease. She has complaints of bilateral lower abd pain 4-07/26, nausea w/o vomiting, and bloody diarrhea. Denies chest pain, SOB. Timing/Duration: Other (since this morning) Severity/Quality: Moderate, Aching Location: RLQ, LLQ Radiation: No Radiation Activities at Onset: None Modifying Factors: Improves With Other (Ibuprofen, Bentyl with no benefit) Associated Symptoms: Nausea/Vomiting, Other (lightheaded) (JESSICA LEY STUDENT) Allergies and Home Medications Allergies Coded Allergies: clindamycin (Verified Allergy, Intermediate, oral blisters, SOB, 07/12/20) cinnamon (Verified Allergy, Unknown, 07/12/20) Home Medications Ciprofloxacin HCl 500 Mg Tablet, 500 MG PO BID, (Reported) FILLED 07-11-2020 #14/7 DAY SUPPLY Hydrocodone/Acetaminophen 1 Each Tablet, 1 TAB PO Q4H PRN for PAIN-MODERATE (5- 7) Prescribed by: MICHAEL CARSON on 07/14/20 1222 Metronidazole 500 Mg Tablet, 500 MG PO BID, (Reported) FILLED 07-11-2020 #14/7 DAY SUPPLY Ondansetron 4 Mg Tab.rapdis, 4 MG PO Q6H PRN for NAUSEA/VOMITING-1ST LINE, (Reported) Ondansetron HCl 4 Mg Tab, 4 MG PO Q4H Prescribed by: MICHAEL CARSON on 07/14/20 1222 Wheat Dextrin 1 Each Powd.pack, 1 EACH PO DAILY, (Reported) Patient Home Medication List Home Medication List Reviewed: Yes (JESSICA LEY) Home Medication List Reviewed: Yes (ESTRELLA PEÑA) Review of Systems Review of Systems Constitutional: No chills, No fever EENTM: No Eye Pain, No Mouth Pain Respiratory: Denies Cough, Denies Shortness of Air Cardiovascular: Denies Chest Pain, Denies Edema; Lightheadedness Gastrointestinal: Abdominal Pain, Blood Streaked Stools; Denies Constipated; Diarrhea, Nausea Genitourinary: Denies Frequency, Denies Hematuria Musculoskeletal: No back pain, No joint pain Skin: No lesions, No rash Psychiatric/Neurological: Denies Headache, Denies Numbness, Denies Paresthesia, Denies Tingling Endocrine: Denies Excessive Sweating, Denies Flushing (JESSICA LEY) All Other Systems Reviewed Negative Unless Noted: Yes (JESSICA LEY) Past Qvzcyge-Wekwyj-Sqiidd Hx Past Med/Social Hx: Reviewed Nursing Past Med/Soc Hx (JESSICA LEY) Patient Social History Alcohol Use: Denies Use Type Used: Electronic/Vapor Former Smoker, Quit: Feb 05, 2019 2nd Hand Smoke Exposure: Yes Recent Infectious Disease Expo: No Recent Hopitalizations: No (JESSICA LEY) Immunizations Up To Date Tetanus Booster (TDap): More than 5yrs PED Vaccines UTD: Yes Date of Influenza Vaccine: Dec 17, 2012 (JESSICA LEY) Seasonal Allergies Seasonal Allergies: No (JESSICA LEY) Past Medical History Surgeries: Yes (Umbilical herniorrhaphy 07/04/12,D&C, ENDOMETRIOSIS SCRAPING, d&c, Mesh Tommy) Abdominal, Adenoidectomy, Appendectomy, Bowel Surgery, Gallbladder, Tonsillectomy, Tubal Ligation Respiratory: No Cardiac: No Neurological: No (only if pt takes tramadol. last seizere 04/2011) Reproductive Disorders: Yes (CPP) Female Reproductive Disorders: Endometriosis, Ovarian Cyst Sexually Transmitted Disease: No HIV/AIDS: No Genitourinary: Yes Kidney Infection, UTI-Chronic Gastrointestinal: Yes (umbilical hernia removed 11/25/18) Abdominal Hernia, Gall Bladder Disease Musculoskeletal: No Chronic Back Pain Endocrine: No HEENT: No Cancer: No Psychosocial: Yes Anxiety, Depression Integumentary: No Blood Disorders: No Adverse Reaction/Blood Tranf: No (JESSICA LEY Gusto STUDENT) Family Medical History Patient reports no known family medical history. No Pertinent Family Hx (JESSICA LEY Gusto STUDENT) Physical Exam Vital Signs Vital Signs - First Documented 07/29/20 10:04 Temp 36.1 Pulse 55 Resp 12 B/P (MAP) 118/78 (91) Pulse Ox 98 (ESTRELLA PEÑA) Vital Signs Capillary Refill : Less Than 3 Seconds (JESSICA LEY Gusto STUDENT) Height/Weight/BMI Height: 4'10.00" Weight: 125lbs. 0oz. [id number]; 27.00 BMI Method:Stated General Appearance: WD/WN, mild distress HEENT: PERRL/EOMI, normal ENT inspection Neck: non-tender, full range of motion, supple, normal inspection Respiratory: chest non-tender, lungs clear, normal breath sounds, no respiratory distress, no accessory muscle use Cardiovascular: normal peripheral pulses, regular rate, rhythm, no edema, no murmur Gastrointestinal: normal bowel sounds, soft; No distended, No guarding; tenderness (Bilateral lower quadrants) Rectal: deferred Extremities: normal range of motion, non-tender, normal inspection, no pedal edema Back: normal inspection, no CVA tenderness, no vertebral tenderness Neurologic/Psychiatric: no motor/sensory deficits, alert, normal mood/affect, oriented x 3 Skin: normal color, warm/dry Lymphatic: no adenopathy (JESSICA LEY Gusto STUDENT) Progress/Results/Core Measures Results/Orders Lab Results Laboratory Tests Test 07/29/20 10:07 07/29/20 11:08 Range/Units Urine Color YELLOW Urine Clarity CLEAR Urine pH 6.0 5-9 Urine Specific [place] 1.020 1.016-1.022 Urine Protein NEGATIVE NEGATIVE Urine Glucose (UA) NEGATIVE NEGATIVE Urine Ketones NEGATIVE NEGATIVE Urine Nitrite NEGATIVE NEGATIVE Urine Bilirubin NEGATIVE NEGATIVE Urine Urobilinogen 0.2 < = 1.0 MG/DL Urine Leukocyte Esterase NEGATIVE NEGATIVE Urine RBC (Auto) 1+ H NEGATIVE Urine RBC 0-2 /HPF Urine WBC 2-5 /HPF Urine Squamous Epithelial Cells 2-5 /HPF Urine Crystals NONE /LPF Urine Bacteria TRACE /HPF Urine Casts NONE /LPF Urine Mucus NEGATIVE /LPF Urine Culture Indicated NO White Blood Count 6.2 4.3-11.0 10^3/uL Red Blood Count 4.25 3.80-5.11 10^6/uL Hemoglobin 12.3 11.5-16.0 g/dL Hematocrit 37 35-52 % Mean Corpuscular Volume 87 80-99 fL Mean Corpuscular Hemoglobin 29 25-34 pg Mean Corpuscular Hemoglobin Concent 33 32-36 g/dL Red Cell Distribution Width 13.4 10.0-14.5 % Platelet Count 335 130-400 10^3/uL Mean Platelet Volume 10.9 9.0-12.2 fL Immature Granulocyte % (Auto) 0 % Neutrophils (%) (Auto) 59 42-75 % Lymphocytes (%) (Auto) 31 12-44 % Monocytes (%) (Auto) 8 0-12 % Eosinophils (%) (Auto) 1 0-10 % Basophils (%) (Auto) 1 0-10 % Neutrophils # (Auto) 3.6 1.8-7.8 10^3/uL Lymphocytes # (Auto) 1.9 1.0-4.0 10^3/uL Monocytes # (Auto) 0.5 0.0-1.0 10^3/uL Eosinophils # (Auto) 0.1 0.0-0.3 10^3/uL Basophils # (Auto) 0.1 0.0-0.1 10^3/uL Immature Granulocyte # (Auto) 0.0 0.0-0.1 10^3/uL Sodium Level 141 135-145 MMOL/L Potassium Level 3.8 3.6-5.0 MMOL/L Chloride Level 108 H 98-107 MMOL/L Carbon Dioxide Level 21 21-32 MMOL/L Anion Gap 12 5-14 MMOL/L Blood Urea Nitrogen 10 7-18 MG/DL Creatinine 0.79 0.60-1.30 MG/DL Estimat Glomerular Filtration Rate > 60 BUN/Creatinine Ratio 13 Glucose Level 92 70-105 MG/DL Calcium Level 9.0 8.5-10.1 MG/DL Corrected Calcium 8.8 8.5-10.1 MG/DL Total Bilirubin 0.5 0.1-1.0 MG/DL Aspartate Amino Transf (AST/SGOT) 15 5-34 U/L Alanine Aminotransferase (ALT/SGPT) 13 0-55 U/L Alkaline Phosphatase 55 40-136 U/L C-Reactive Protein High Sensitivity 0.15 0.00-0.50 MG/DL Total Protein 7.3 6.4-8.2 GM/DL Albumin 4.2 3.2-4.5 GM/DL Lipase 23 8-78 U/L (ESTRELLA PEÑA) My Orders Orders - ESTRELLA PEÑA Ua Culture If Indicated (07/29/20 10:01) Urine Bedside (07/29/20 10:01) Ed Iv/Invasive Line Start (07/29/20 10:50) Ns Iv 1000 Ml (Sodium Chloride 0.9%) (07/29/20 11:00) Fentanyl Inj (Sublimaze Injection) (07/29/20 11:00) Cbc With Automated Diff (07/29/20 10:50) Comprehensive Metabolic Panel (07/29/20 10:50) Hs C Reactive Protein (07/29/20 10:50) Lipase (07/29/20 10:50) Methylprednisolone Sod Succ (Solu-Medrol (07/29/20 11:15) Ondansetron Injection (Zofran Injectio (07/29/20 11:15) Ct Abdomen/Pelvis W (07/29/20 11:32) Fentanyl Inj (Sublimaze Injection) (07/29/20 11:45) Iohexol Injection (Omnipaque 350 Mg/Ml 1 (07/29/20 11:45) Received Contrast (Hold Metformin- Contr (07/29/20 11:45) Sodium Chloride Flush (Catheter Flush Sy (07/29/20 11:45) Ns (Ivpb) (Sodium Chloride 0.9% Ivpb Bag (07/29/20 11:45) Oxycodone/Apap 7.5/325mg Tab (Percocet (07/29/20 13:45) (ESTRELLA PEÑA) Medications Given in ED Current Medications Medications Dose Ordered Sig/Damion Route Start Time Stop Time Status Last Admin Dose Admin Fentanyl Citrate 50 mcg ONCE ONCE IVP 07/29/20 11:00 07/29/20 11:01 DC 07/29/20 11:00 50 MCG Fentanyl Citrate 50 mcg ONCE ONCE IVP 07/29/20 11:45 07/29/20 11:46 DC 07/29/20 11:49 50 MCG Iohexol 100 ml ONCE ONCE IV 07/29/20 11:45 07/29/20 11:46 DC 07/29/20 11:54 74 ML Methylprednisolone Sodium Succinate 125 mg ONCE ONCE IVP 07/29/20 11:15 07/29/20 11:16 DC 07/29/20 11:41 125 MG Ondansetron HCl 8 mg ONCE ONCE IVP 07/29/20 11:15 07/29/20 11:16 DC 07/29/20 11:41 8 MG Oxycodone/ Acetaminophen 1 each ONCE ONCE PO 07/29/20 13:45 07/29/20 13:46 DC 07/29/20 14:08 1 EACH Sodium Chloride 10 ml NEEDED PRN IV 07/29/20 11:45 07/29/20 11:54 10 ML Sodium Chloride 100 ml ONCE ONCE IV 07/29/20 11:45 07/29/20 11:46 DC 07/29/20 11:54 80 ML (ESTRELLA PEÑA) Vital Signs/I&O 07/29/20 07/29/20 10:04 12:07 Temp 36.1 Pulse 55 60 Resp 12 12 B/P (MAP) 118/78 (91) 120/62 (91) Pulse Ox 98 98 (ESTRELLA PEÑA) Blood Pressure Mean: 91 Progress Progress Note : Time: 13:06 Progress Note I attest that I saw this patient alongside the medical student and agree with his documented history, physical exam and review of systems except as otherwise noted. Normal labs with negative markers of inflammation make bacterial infection of the colon less likely. Our working diagnosis is that she has an inflammatory bowel disease so we will put her on a strong dose of steroids. 125 mg Solu- Medrol and Medrol Dosepak for outpatient. If we cannot get her pain under control then we can discuss with the team doing a observation for pain management. CT unchanged from a few weeks ago. She has not had any nausea since getting the Zofran. Her pain was marginally helped by the fentanyl. (ESTRELLA PEÑA) Diagnostic Imaging Diagonstic Imaging: CT Plain Films/CT/US/NM/MRI: abdomen, pelvis Comments NAME: CAM ESCOBEDO [facility] REC#: [id number] PT STATUS: REG ER : 1990 PHYSICIAN: ESTRELLA PEÑA MD ADMIT DATE: 07/29/20/ER Signed Date of Exam:07/29/20 CT ABDOMEN/PELVIS W EXAMINATION: CT abdomen and pelvis with intravenous contrast. TECHNIQUE: Multiple contiguous axial images were obtained through the abdomen and pelvis after the uneventful administration of intravenous contrast. All CT scans use one or more of the following dose optimizing techniques: automated exposure control, MA and/or KvP adjustment based on patient size and exam type or iterative reconstruction. HISTORY: abd pain COMPARISON: CT abdomen pelvis 07/11/2020. FINDINGS: Lung bases: The lung bases are clear. Solid organs: The liver is normal without focal lesion. The gallbladder is surgically absent. There is no biliary ductal dilation. Pancreas is normal. Spleen is normal. Adrenal glands are normal. The kidneys are normal without hydronephrosis. Bowel: The stomach and small bowel are normal without obstruction. There is mild diffuse wall thickening of the colon. The appendix is surgically absent. Peritoneum: There is no intraperitoneal free fluid or free air. No suspicious lymphadenopathy. Vasculature: Normal without aneurysm. Musculoskeletal: No suspicious osseous lesion or compression fracture. Pelvis: The uterus and adnexa are normal. The urinary bladder is normal. IMPRESSION: 1. Stable findings of diffuse wall thickening of the colon suggestive of an infectious or inflammatory colitis. Dictated by: Dictated on workstation # [id number] Dict: 07/29/20 1205 Trans: 07/29/20 1301 [facility] [id number] Interpreted by: DELROY DEL VALLE DO Electronically signed by: DELROY DEL VALLE DO 07/29/20 1301 Reviewed: Reviewed by Me (ESTRELLA PEÑA) Consults : Consulting Physician: STEPHANIE MASSEY MD Consults Notes Discussed case with general surgeon who is familiar with her case. He states th at he was consulted on her 2 days ago when she went to [facility]. At that time he recommended low-dose steroids. He says at this time when she needs high-dose steroids and pain control and does not recommend anything else. He does not mind consulting if she has to be observed for pain management. (ESTRELLA PEÑA) Departure Communication (Admissions) Time/Spoke to Admitting Phy: 14:36 Discussed the case with Dr. Mir and she agrees to observe the patient for pain management of nonspecific inflammatory bowel disease. Time/Spoke to Consulting Phy: 13:[address] Massey and he is okay to consult. (ESTRELLA PEÑA) Impression Primary Impression: Inflammatory bowel disease Disposition: HOME, SELF-CARE Condition: Stable Admissions Decision to Admit Reason: Admit from ER (General) Decision to Admit/Date: July 29, 2020 Time/Decision to Admit Time: 14:30 (ESTRELLA PEÑA) Departure-Patient Inst. Referrals: NO,LOCAL PHYSICIAN (PCP/Family) Primary Care Physician JESSICA LEY STUDENT July 29, 2020 10:33 ESTRELLA PEÑA July 29, 2020 13:08
[2020-07-29 10:36] LABS: RBC,URINE 0-2 /HPF
[2020-07-29 10:37] LABS: BACTERIA,URINE TRACE /HPF
[2020-07-29] MEDS ORDERED: fentaNYL INJ 100 MCG/2 ML AMP IVP ONE ×2 (11:00→11:45)
[2020-07-29] MEDS ORDERED: NS IV 1000 ML 1,000 ML IV SCH (11:00)
[2020-07-29 11:15] LABS: BASOPHILS # (AUTO) 0.1 10^3/uL (0.0-0.1); BASOPHILS % (AUTO) 1 % (0-10); EOSINOPHILS # (AUTO) 0.1 10^3/uL (0.0-0.3); EOSINOPHILS % (AUTO) 1 % (0-10); HEMATOCRIT 37 % (35-52); HEMOGLOBIN 12.3 g/dL (11.5-16.0); LYMPHOCYTES # (AUTO) 1.9 10^3/uL (1.0-4.0); LYMPHOCYTES % (AUTO) 31 % (12-44); MEAN CORPUSCULAR HEMOGLOBIN 29 pg (25-34); MEAN CORPUSCULAR HGB CONC 33 g/dL (32-36); MEAN CORPUSCULAR VOLUME 87 fL (80-99); MEAN PLATELET VOLUME 10.9 fL (9.0-12.2); MONOCYTES # (AUTO) 0.5 10^3/uL (0.0-1.0); MONOCYTES % (AUTO) 8 % (0-12); NEUTROPHILS # (AUTO) 3.6 10^3/uL (1.8-7.8); NEUTROPHILS % (AUTO) 59 % (42-75); PLATELET COUNT 335 10^3/uL (130-400); WHITE BLOOD COUNT 6.2 10^3/uL (4.3-11.0)
[2020-07-29] MEDS ORDERED: methylPREDNISolone 125 MG (Solu-MEDROL) VIAL IVP ONE (11:15)
[2020-07-29] MEDS ORDERED: ONDANSETRON 4 MG/2 ML (SDV) Z0FRAN IVP ONE (11:15)
[2020-07-29 11:31] LABS: ALBUMIN 4.2 GM/DL (3.2-4.5)
[2020-07-29 11:32] LABS: CHLORIDE 108 MMOL/L (98-107); POTASSIUM 3.8 MMOL/L (3.6-5.0); SODIUM 141 MMOL/L (135-145)
[2020-07-29 11:34] LABS: GLUCOSE 92 MG/DL (70-105); TOTAL PROTEIN 7.3 GM/DL (6.4-8.2)
[2020-07-29 11:35] LABS: CARBON DIOXIDE 21 MMOL/L (21-32)
[2020-07-29 11:36] LABS: BILIRUBIN,TOTAL 0.5 MG/DL (0.1-1.0)
[2020-07-29 11:37] LABS: ALKALINE PHOSPHATASE 55 U/L (40-136)
[2020-07-29 11:38] LABS: CREATININE SERUM 0.79 MG/DL (0.60-1.30); GFR ESTIMATED > 60
[2020-07-29 11:39] LABS: BUN/CREATININE RATIO 13
[2020-07-29 11:41] LABS: ALANINE AMINOTRANSFERASE 13 U/L (0-55); LIPASE 23 U/L (8-78)
[2020-07-29] MEDS ORDERED: IOHEXOL 350 MG/ML 100 ML (OMNIPAQUE 350) VIAL IV ONE (11:45)
[2020-07-29] MEDS ORDERED: CATHETER FLUSH 10 ML SYR IV PRN ×2 (11:45→15:45)
[2020-07-29] MEDS ORDERED: HOLD METFORMIN - RECEIVED CONTRAST 20 ML VIAL IV SCH (11:45)
[2020-07-29] MEDS ORDERED: NS 100 ML (IVPB) BAG IV ONE (11:45)
--- NOTE | 2020-07-29 12:13 | Diagnostic Imaging Report ---
EXAMINATION: CT abdomen and pelvis with intravenous contrast. TECHNIQUE: Multiple contiguous axial images were obtained through the abdomen and pelvis after the uneventful administration of intravenous contrast. All CT scans use one or more of the following dose optimizing techniques: automated exposure control, MA and/or KvP adjustment based on patient size and exam type or iterative reconstruction. HISTORY: abd pain COMPARISON: CT abdomen pelvis 07/11/2020. FINDINGS: Lung bases: The lung bases are clear. Solid organs: The liver is normal without focal lesion. The gallbladder is surgically absent. There is no biliary ductal dilation. Pancreas is normal. Spleen is normal. Adrenal glands are normal. The kidneys are normal without hydronephrosis. Bowel: The stomach and small bowel are normal without obstruction. There is mild diffuse wall thickening of the colon. The appendix is surgically absent. Peritoneum: There is no intraperitoneal free fluid or free air. No suspicious lymphadenopathy. Vasculature: Normal without aneurysm. Musculoskeletal: No suspicious osseous lesion or compression fracture. Pelvis: The uterus and adnexa are normal. The urinary bladder is normal. IMPRESSION: 1. Stable findings of diffuse wall thickening of the colon suggestive of an infectious or inflammatory colitis. Dictated by: Dictated on workstation # [id number]
[2020-07-29] MEDS ORDERED: oxyCODONE/APAP 7.5-325 MG (PERCOCET 7.5) TABLET PO ONE (13:45)
[2020-07-29] MEDS ORDERED: polyethylene glycoL POWDER 17 GM (MIRALAX) PACK PO PRN (15:30)
[2020-07-29 15:39] VITALS: BP 99/65
[2020-07-29] MEDS: LACTATED RINGERS 1,000 ML IV SCH (15:44)
[2020-07-29] MEDS: methylPREDNISolone 125 MG (Solu-MEDROL) VIAL IV SCH ×2 (17:34→23:43)
[2020-07-29] MEDS: morphine INJ 4 MG/ML 1 ML (VIAL/SYRINGE) IV PRN ×2 (17:34→22:17)
[2020-07-29 20:00] VITALS: BP 105/74
[2020-07-29] MEDS: oxyCODONE/APAP 10/325MG (PERCOCET 10) TABLET PO PRN (20:06)
[2020-07-29] MEDS: ONDANSETRON 4 MG/2 ML (SDV) Z0FRAN IV PRN (20:07)
[2020-07-29 23:25] VITALS: BP 105/69
[2020-07-30] MEDS: LACTATED RINGERS 1,000 ML IV SCH ×2 (02:13→11:28)
[2020-07-30 04:00] VITALS: BP 104/55
[2020-07-30] MEDS: ONDANSETRON 4 MG/2 ML (SDV) Z0FRAN IV PRN ×2 (04:13→21:47)
[2020-07-30] MEDS: morphine INJ 4 MG/ML 1 ML (VIAL/SYRINGE) IV PRN ×2 (04:13→08:25)
[2020-07-30] MEDS: methylPREDNISolone 125 MG (Solu-MEDROL) VIAL IV SCH ×3 (05:28→18:04)
[2020-07-30 05:46] LABS: BASOPHILS % (AUTO) 0 % (0-10); EOSINOPHILS % (AUTO) 0 % (0-10); HEMATOCRIT 37 % (35-52); HEMOGLOBIN 11.8 g/dL (11.5-16.0); LYMPHOCYTES # (AUTO) 0.8 10^3/uL (1.0-4.0); LYMPHOCYTES % (AUTO) 11 % (12-44); MEAN CORPUSCULAR HEMOGLOBIN 29 pg (25-34); MEAN CORPUSCULAR HGB CONC 32 g/dL (32-36); MEAN CORPUSCULAR VOLUME 89 fL (80-99); MEAN PLATELET VOLUME 11.1 fL (9.0-12.2); MONOCYTES # (AUTO) 0.1 10^3/uL (0.0-1.0); MONOCYTES % (AUTO) 2 % (0-12); NEUTROPHILS # (AUTO) 6.2 10^3/uL (1.8-7.8); NEUTROPHILS % (AUTO) 87 % (42-75); PLATELET COUNT 301 10^3/uL (130-400); WHITE BLOOD COUNT 7.2 10^3/uL (4.3-11.0)
[2020-07-30 05:57] LABS: CHLORIDE 106 MMOL/L (98-107); POTASSIUM 3.7 MMOL/L (3.6-5.0); SODIUM 138 MMOL/L (135-145)
[2020-07-30 05:58] LABS: CALCIUM 8.6 MG/DL (8.5-10.1)
[2020-07-30 05:59] LABS: GLUCOSE 118 MG/DL (70-105)
[2020-07-30 06:00] LABS: CARBON DIOXIDE 22 MMOL/L (21-32)
[2020-07-30 06:03] LABS: BUN/CREATININE RATIO 11; CREATININE SERUM 0.66 MG/DL (0.60-1.30); GFR ESTIMATED > 60
[2020-07-30 08:00] VITALS: BP 106/70
[2020-07-30] MEDS: oxyCODONE/APAP 10/325MG (PERCOCET 10) TABLET PO PRN ×2 (09:42→15:58)
[2020-07-30] MEDS ORDERED: PRD20T PO (10:48)
[2020-07-30] MEDS ORDERED: PSYL3.4P5 PO (10:48)
[2020-07-30] MEDS ORDERED: ONDA-105 PO (10:48)
[2020-07-30] MEDS ORDERED: DICY10CA12 PO (10:48)
[2020-07-30] MEDS ORDERED: AMOX1TAB12 PO (10:48)
[2020-07-30] MEDS ORDERED: IBUP-2473 PO (10:48)
[2020-07-30] MEDS ORDERED: PANT40TA52 PO (10:48)
[2020-07-30] MEDS: LORazepam 1 MG (ATIVAN) TAB PO PRN ×2 (10:50→15:58)
[2020-07-30 11:56] VITALS: BP 101/64
--- NOTE | 2020-07-30 12:28 | History & Physical ---
HPI History of Present Illness: 29 yo F that presents with severe abdominal pain. Patient states that she has started the workup for inflammatory bowel disease but she has not yet seen [facility]. She has had multiple abdominal surgeries. Her pain started to get unbearable yesterday. Denies any constipation or diarrhea. No blood in her stool recently. Has been seeing Dr Metcalf. Source: patient Date seen by provider: July 30, 2020 Time Seen by Provider: 10:25 Attending Physician Chantale Mir MD PCP No,Local Physician Consult STEPHANIE METCALF MD Date of Admission July 29, 2020 at 15:00 Home Medications Home Medications Reviewed patient Home Medication Reconciliation performed by pharmacy medication reconciliations electrical technician and/or nursing. Patients Allergies have been reviewed. Allergies Coded Allergies: clindamycin (Verified Allergy, Intermediate, oral blisters, SOB, 07/29/20) cinnamon (Verified Allergy, Unknown, 07/29/20) NYO-Ccxerz-Lyjndi Hx Patient Social History 2nd Hand Smoke Exposure: Yes Recent Hopitalizations: No Alcohol Use?: No Have you traveled recently?: No Immunizations Up To Date Tetanus Booster (TDap): More than 5yrs Date of Influenza Vaccine: Dec 17, 2012 Family Medical History Significant Family History: No Pertinent Family Hx Family History: Patient reports no known family medical history. Review of Systems ([facility]) Constitutional: No fever; malaise EENTM: no symptoms reported; No mouth pain, No nose congestion, No nose pain Respiratory: no symptoms reported; No cough, No dyspnea on exertion, No short of breath Cardiovascular: no symptoms reported; No chest pain, No edema, No palpitations Gastrointestinal: abdominal pain, loss of appetite, nausea Genitourinary: no symptoms reported; No dysuria, No frequency, No hematuria : No Musculoskeletal: no symptoms reported Skin: no symptoms reported Psychiatric/Neurological: No Symptoms Reported Reviewed Test Results Reviewed Test Results Lab Laboratory Tests Test 07/30/20 05:10 Range/Units White Blood Count 7.2 4.3-11.0 10^3/uL Red Blood Count 4.12 3.80-5.11 10^6/uL Hemoglobin 11.8 11.5-16.0 g/dL Hematocrit 37 35-52 % Mean Corpuscular Volume 89 80-99 fL Mean Corpuscular Hemoglobin 29 25-34 pg Mean Corpuscular Hemoglobin Concent 32 32-36 g/dL Red Cell Distribution Width 13.2 10.0-14.5 % Platelet Count 301 130-400 10^3/uL Mean Platelet Volume 11.1 9.0-12.2 fL Immature Granulocyte % (Auto) 0 % Neutrophils (%) (Auto) 87 H 42-75 % Lymphocytes (%) (Auto) 11 L 12-44 % Monocytes (%) (Auto) 2 0-12 % Eosinophils (%) (Auto) 0 0-10 % Basophils (%) (Auto) 0 0-10 % Neutrophils # (Auto) 6.2 1.8-7.8 10^3/uL Lymphocytes # (Auto) 0.8 L 1.0-4.0 10^3/uL Monocytes # (Auto) 0.1 0.0-1.0 10^3/uL Eosinophils # (Auto) 0.0 0.0-0.3 10^3/uL Basophils # (Auto) 0.0 0.0-0.1 10^3/uL Immature Granulocyte # (Auto) 0.0 0.0-0.1 10^3/uL Sodium Level 138 135-145 MMOL/L Potassium Level 3.7 3.6-5.0 MMOL/L Chloride Level 106 98-107 MMOL/L Carbon Dioxide Level 22 21-32 MMOL/L Anion Gap 10 5-14 MMOL/L Blood Urea Nitrogen 7 7-18 MG/DL Creatinine 0.66 0.60-1.30 MG/DL Estimat Glomerular Filtration Rate > 60 BUN/Creatinine Ratio 11 Glucose Level 118 H 70-105 MG/DL Calcium Level 8.6 8.5-10.1 MG/DL Physical Exam-([facility]C) Physical Exam Vital Signs VS - Last 72 Hours, by Label 07/29/20 07/29/20 07/29/20 07/29/20 10:04 12:07 14:59 15:33 Temp 36.1 36.1 Pulse 55 60 60 Resp 12 12 12 B/P (MAP) 118/78 (91) 120/62 (91) 120/62 (91) Pulse Ox 98 98 98 98 O2 Delivery Room Air 07/29/20 07/29/20 07/29/20 07/29/20 15:39 20:00 20:00 23:25 Temp 35.8 35.9 36.0 Pulse 52 51 49 Resp 18 18 16 B/P (MAP) 99/65 (76) 105/74 (84) 105/69 (81) Pulse Ox 96 97 97 98 O2 Delivery Room Air Room Air Room Air Room Air 07/30/20 07/30/20 07/30/20 04:00 08:00 11:56 Temp 35.8 36.4 36.0 Pulse 54 63 54 Resp 18 18 20 B/P (MAP) 104/55 (71) 106/70 (82) 101/64 (76) Pulse Ox 97 97 96 O2 Delivery Room Air Room Air Room Air Capillary Refill : Less Than 3 Seconds General Appearance: mild distress (due to abdominal pain) HEENT: PERRL/EOMI Neck: non-tender, full range of motion, supple Respiratory: chest non-tender, lungs clear, normal breath sounds, no respiratory distress, no accessory muscle use Cardiovascular: normal peripheral pulses, regular rate, rhythm, no edema, no murmur Gastrointestinal: normal bowel sounds, soft, tenderness (diffuse but more in RL Q); No mass Back: no CVA tenderness, no vertebral tenderness Extremities: normal range of motion, non-tender, normal inspection, no pedal edema, no calf tenderness, normal capillary refill Neurologic/Psychiatric: web weaver II-XII nml as tested, no motor/sensory deficits, alert, normal mood/affect, oriented x 3 Skin: normal color, warm/dry Lymphatic: no adenopathy Assessment/Plan Assessment/Plan Admission Status: Observation (1) Abdominal pain Status: Acute Assessment & Plan: - Possible inflammatory bowel disease, has appt with [facility], following with Dr Metcalf, started on high dose steroids, PO percocet and tylenol Qualifiers: Qualified Codes: R10.31 - Right lower quadrant pain CHANTALE MIR MD July 30, 2020 12:28
--- NOTE | 2020-07-30 12:59 | CONSULTATION REPORT ---
DATE OF SERVICE: 07/30/2020 ADMITTING PHYSICIAN: Dr. Chantale Mir. HISTORY OF PRESENT ILLNESS: The patient is a 29-year-old female known to us. She has had issues with crampy abdominal pain and likely diagnosis of inflammatory bowel disease. She has also had bloody diarrhea. She was admitted recently and treated medically and did improve over time. She then presented to [facility] with a reoccurrence of symptoms with crampy abdominal pain with worsening intensity as well as bloody diarrhea. She was treated with a prednisone; however, after she went home, she continued to have issues with pain as well as bloody diarrhea. A CT scan was performed, which did show diffuse inflammation of the colon consistent with colitis. She has started seeing a water systems designer at [facility] where labs were drawn. PAST MEDICAL HISTORY: Endometriosis. PAST SURGICAL HISTORY: Laparoscopic endometrial ablation x2, 2013, 2014, umbilical hernia repair 2012, laparoscopic cholecystectomy and appendectomy 2014, explantation of old mesh and incisional hernia repair 2018, tubal ligation 05/2020. ALLERGIES: CLINDAMYCIN. MEDICATIONS: Cipro 500 mg b.i.d., Flagyl 500 mg b.i.d., hydrocodone p.r.n., Zofran p.r.n. SOCIAL HISTORY: Positive for vaporized nicotine. Negative alcohol. FAMILY HISTORY: Noncontributory. VITAL SIGNS: Temperature 36.0, blood pressure 101/64, pulse 54, respirations 20, pulse ox 96% on room air. REVIEW OF SYSTEMS: Well-nourished female currently guarded secondary to abdominal pain. She states that since being admitted, she has felt slightly better. She is now on high dose IV steroids. She is not experiencing any shortness of breath or difficulty breathing. No chest pain, palpitations, diaphoresis. Since being admitted, has not had a bowel movement. No fever, chills, no recent inadvertent weight loss. All other review of systems negative. PHYSICAL EXAMINATION: CHEST: Clear. Good breath sounds bilaterally. HEART: Regular, no murmurs. EXTREMITIES: No lower extremity edema, negative Homans sign. HEENT: No scleral icterus. NECK: No cervical lymphadenopathy. ABDOMEN: Soft, nondistended. There is pain, which is diffuse; however, more in the mid abdominal region as well as lower abdominal quadrants. There are no peritoneal signs, no hernias. SKIN: Warm, dry. LABORATORY DATA: WBC 7.2, hemoglobin 11.8, hematocrit 37, platelets 301. BUN 7, creatinine 0.66. ASSESSMENT AND PLAN: A 29-year-old female with inflammatory bowel disease, most likely more consistent with an ulcerative colitis, however, unsure. She continues to have more frequent as well as more severe episodes of pain and she was admitted for pain control as well as initial management for active inflammatory bowel disease with IV steroids. Once she is able to have adequate pain control with oral pain medications, ambulating well and tolerating some liquids and a low residue diet, she may be discharged home; however, she needs to continue to follow up with gastroenterology at for further recommendations and therapy. Job ID: [id number] DocumentID: [id number] Dictated Date: 07/30/2020 12:47:10 Sales Associate Cashier Date: 07/30/2020 12:58:45 Dictated By: STEPHANIE METCALF MD
[2020-07-30] MEDS: metroNIDAZOLE 500MG/100ML IVPB 100 ML IV SCH (13:52)
[2020-07-30] MEDS: CIPROFLOXACIN IV 400MG/200ML 200 ML IV SCH (13:53)
[2020-07-30] MEDS: fentaNYL INJ 100 MCG/2 ML AMP IVP PRN ×2 (13:54→21:47)
[2020-07-30 16:22] VITALS: BP 99/66
[2020-07-30 19:27] VITALS: BP 112/64
[2020-07-31] MEDS: LACTATED RINGERS 1,000 ML IV SCH ×3 (00:03→11:57)
[2020-07-31] MEDS: CIPROFLOXACIN IV 400MG/200ML 200 ML IV SCH ×2 (00:03→13:18)
[2020-07-31] MEDS: methylPREDNISolone 125 MG (Solu-MEDROL) VIAL IV SCH ×5 (00:03→23:52)
[2020-07-31 00:17] VITALS: BP 98/62
[2020-07-31] MEDS: metroNIDAZOLE 500MG/100ML IVPB 100 ML IV SCH ×2 (01:36→13:18)
[2020-07-31] MEDS: oxyCODONE/APAP 10/325MG (PERCOCET 10) TABLET PO PRN ×3 (03:34→21:16)
[2020-07-31] MEDS: LORazepam 1 MG (ATIVAN) TAB PO PRN ×2 (04:18→11:26)
[2020-07-31 04:41] VITALS: BP 108/69
[2020-07-31] MEDS: ONDANSETRON 4 MG/2 ML (SDV) Z0FRAN IV PRN (05:17)
[2020-07-31 05:30] LABS: BASOPHILS % (AUTO) 0 % (0-10); EOSINOPHILS % (AUTO) 0 % (0-10); HEMATOCRIT 35 % (35-52); HEMOGLOBIN 11.5 g/dL (11.5-16.0); LYMPHOCYTES # (AUTO) 0.5 10^3/uL (1.0-4.0); LYMPHOCYTES % (AUTO) 5 % (12-44); MEAN CORPUSCULAR HEMOGLOBIN 29 pg (25-34); MEAN CORPUSCULAR HGB CONC 33 g/dL (32-36); MEAN CORPUSCULAR VOLUME 89 fL (80-99); MEAN PLATELET VOLUME 11.4 fL (9.0-12.2); MONOCYTES # (AUTO) 0.4 10^3/uL (0.0-1.0); MONOCYTES % (AUTO) 3 % (0-12); NEUTROPHILS # (AUTO) 10.2 10^3/uL (1.8-7.8); NEUTROPHILS % (AUTO) 92 % (42-75); PLATELET COUNT 341 10^3/uL (130-400); WHITE BLOOD COUNT 11.2 10^3/uL (4.3-11.0)
[2020-07-31 05:42] LABS: ALBUMIN 3.4 GM/DL (3.2-4.5); CHLORIDE 106 MMOL/L (98-107); POTASSIUM 3.7 MMOL/L (3.6-5.0); SODIUM 139 MMOL/L (135-145)
[2020-07-31 05:43] LABS: CALCIUM 8.5 MG/DL (8.5-10.1)
[2020-07-31 05:45] LABS: GLUCOSE 139 MG/DL (70-105)
[2020-07-31 05:46] LABS: CARBON DIOXIDE 24 MMOL/L (21-32)
[2020-07-31 05:47] LABS: BILIRUBIN,TOTAL 0.3 MG/DL (0.1-1.0)
[2020-07-31 05:48] LABS: ALKALINE PHOSPHATASE 46 U/L (40-136); CREATININE SERUM 0.65 MG/DL (0.60-1.30); GFR ESTIMATED > 60
[2020-07-31 05:49] LABS: BUN/CREATININE RATIO 11
[2020-07-31 05:51] LABS: ALANINE AMINOTRANSFERASE 11 U/L (0-55)
[2020-07-31 08:00] VITALS: BP 128/80
[2020-07-31] MEDS: PANTOPRAZOLE 40 MG (PROTONIX) VIAL IV SCH (08:48)
[2020-07-31] MEDS: fentaNYL INJ 100 MCG/2 ML AMP IVP PRN ×3 (08:59→23:51)
--- NOTE | 2020-07-31 11:16 | Progress Note - Hospitalist ---
Subjective HPI/CC On Admission Date Seen by Provider: July 31, 2020 Time Seen by Provider: 10:00 Subjective/Events-last exam Patient continues to consistently rate her pain 8-9 out of 10. She notes that she did not sleep again last night mostly because of the steroids that she has been on. She says that when she gets upset and has increased anxiety with shaking and in fact I witnessed some of that today. She notes that the fentanyl nor the hydrocodone helped her pain. Her vitals are all stable. Review of Systems Gastrointestinal: Abdominal Pain Objective Exam Vital Signs Vital Signs Date Time Temp Pulse Resp B/P (MAP) Pulse Ox O2 Delivery O2 Flow Rate FiO2 07/31/20 08:00 36.4 72 20 128/80 (96) 98 Room Air Capillary Refill : Less Than 3 Seconds General Appearance: No Apparent Distress, WD/WN, Anxious HEENT: Normal ENT Inspection Neck: Full Range of Motion, Normal Inspection, Non Tender, Supple Respiratory: Lungs Clear, Normal Breath Sounds, No Accessory Muscle Use, No Respiratory Distress Cardiovascular: Regular Rate, Rhythm, No Gallop, No Murmur Gastrointestinal: Soft, Guarding, Tenderness, Other (Decreased bowel sounds) Extremity: No Pedal Edema Results/Procedures Lab Laboratory Tests 07/31/20 05:17 Patient resulted labs reviewed. Assessment/Plan Assessment and Plan Assess & Plan/Chief Complaint Severe abdominal pain of uncertain etiology. CT demonstrates thickening of the colon. She has not had any diarrhea although she said she had blood in her stool once. C-reactive protein is normal she has had previous multiple abdominal surgeries. He may have developed some narcotic bowel. We will try and add Neurontin for possible neuropathic pain involvement check a KUB and follow her white count and any evidence of fever or worsening condition. Diagnosis/Problems Diagnosis/Problems (1) Abdominal pain Status: Acute Qualifiers: Abdominal location: generalized Qualified Codes: R10.84 - Generalized abdominal pain YANA MARTINEZ MD July 31, 2020 11:16
[2020-07-31] MEDS: GABAPENTIN 100 MG (NEURONTIN) CAP PO SCH ×3 (11:25→19:38)
[2020-07-31] MEDS: PROMETHAZINE INJ 25 MG/ML (PHENERGAN) AMP IM PRN (11:54)
[2020-07-31 12:00] VITALS: BP 113/63
--- NOTE | 2020-07-31 12:27 | Diagnostic Imaging Report ---
INDICATION: Abdominal pain. TIME OF EXAM: 11:36 AM No free air is identified. Bowel gas pattern is nonobstructed. No pathologic calcifications are seen. There are clips in the pelvis. IMPRESSION: No acute abnormality is detected. Dictated by: Dictated on workstation # [id number]
--- NOTE | 2020-07-31 13:13 | Progress Note - Surgery ---
Subjective Time Seen by a Provider: 12:38 Subjective/Events-last exam Pt seen and examined, states her abdominal pain is just as bad as yesterday. She is able to take a little bit of liquids. Review of Systems General: Fatigue, Malaise Pulmonary: No Dyspnea, No Cough Cardiovascular: No: Chest Pain, Palpitations Gastrointestinal: Nausea, Abdominal Pain; No: Vomiting Objective Exam Vital Signs Date Time Temp Pulse Resp B/P (MAP) Pulse Ox O2 Delivery O2 Flow Rate FiO2 07/31/20 12:00 36.1 55 20 113/63 (80) 97 Room Air 07/31/20 08:00 Room Air 07/31/20 08:00 36.4 72 20 128/80 (96) 98 Room Air 07/31/20 04:41 36.4 60 16 108/69 (82) 97 Room Air 07/31/20 00:17 36.3 50 18 98/62 (74) 99 Room Air 07/30/20 20:00 97 Room Air 07/30/20 19:27 36.4 60 18 112/64 (80) 96 Room Air 07/30/20 16:22 36.3 55 18 99/66 (77) 95 Room Air I & O 07/31/20 07:00 Intake Total 1310 ml Output Total 2375 ml Balance -1065 ml Capillary Refill : Less Than 3 Seconds General Appearance: No Apparent Distress, WD/WN, Anxious Respiratory: Lungs Clear, Normal Breath Sounds, No Accessory Muscle Use, No Respiratory Distress Cardiovascular: Regular Rate, Rhythm, No Murmur Gastrointestinal: normal bowel sounds, soft, tenderness (diffuse but more in RLQ); No mass Extremity: No Pedal Edema Results Lab Laboratory Tests 07/31/20 05:17: White Blood Count 11.2H, Red Blood Count 3.92, Hemoglobin 11.5, Hematocrit 35, Mean Corpuscular Volume 89, Mean Corpuscular Hemoglobin 29, Mean Corpuscular Hemoglobin Concent 33, Red Cell Distribution Width 13.4, Platelet Count 341, Mean Platelet Volume 11.4, Immature Granulocyte % (Auto) 0, Neutrophils (%) (Auto) 92H, Lymphocytes (%) (Auto) 5L, Monocytes (%) (Auto) 3, Eosinophils (%) (Auto) 0, Basophils (%) (Auto) 0, Neutrophils # (Auto) 10.2H, Lymphocytes # (Auto) 0.5L, Monocytes # (Auto) 0.4, Eosinophils # (Auto) 0.0, Basophils # (Auto) 0.0, Immature Granulocyte # (Auto) 0.1, Sodium Level 139, Potassium Level 3.7, Chloride Level 106, Carbon Dioxide Level 24, Anion Gap 9, Blood Urea Nitrogen 7, Creatinine 0.65, Estimat Glomerular Filtration Rate > 60, BUN/Creatinine Ratio 11, Glucose Level 139H, Calcium Level 8.5, Corrected Calcium 9.0, Magnesium Level 1.8, Total Bilirubin 0.3, Aspartate Amino Transf (AST/SGOT) 10, Alanine Aminotransferase (ALT/SGPT) 11, Alkaline Phosphatase 46, Total Protein 6.0L, Albumin 3.4 Assessment/Plan Assessment/Plan Assessment/Plan Enteritis seen on CT ??Crohn's flareup -pt is on steroids, may need to add something else to control flare up (ie Mesalamine, etc). Pt states she can't get appt at until November and is asking about anyone in [place] she can see. I told her we could try to look into that Sunday unfortunately can't do anything over the weekend. TAHMINA JOHNSON DO July 31, 2020 13:13
[2020-07-31 16:20] VITALS: BP 98/62
--- NOTE | 2020-07-31 16:40 | Diagnostic Imaging Report ---
PROCEDURE: US Venous Lower Ext Carlos. TECHNIQUE: Multiple real-time grayscale images were obtained over the lower extremities in various projections, bilaterally. Additional duplex Doppler and color Doppler images were also obtained. INDICATION: Bilateral lower extremity swelling. FINDINGS: There is no evidence of right or left lower extremity DVT. Both lower extremity deep venous systems demonstrate normal compressibility with normal response to augmentation and Valsalva. No fluid collection or mass is detected. IMPRESSION: No evidence of right or left lower extremity DVT. Dictated by: Dictated on workstation # [id number]
[2020-07-31 20:23] VITALS: BP 114/64
[2020-07-31] MEDS: LORazepam INJ 2 MG/ML (ATIVAN) VIAL IVP PRN (21:16)
[2020-08-01 00:37] VITALS: BP 107/59
[2020-08-01] MEDS: CIPROFLOXACIN IV 400MG/200ML 200 ML IV SCH ×2 (00:50→12:21)
[2020-08-01] MEDS: metroNIDAZOLE 500MG/100ML IVPB 100 ML IV SCH ×2 (00:50→12:23)
[2020-08-01] MEDS: fentaNYL INJ 100 MCG/2 ML AMP IVP PRN (01:15)
[2020-08-01] MEDS: LACTATED RINGERS 1,000 ML IV SCH ×3 (01:15→22:56)
[2020-08-01] MEDS: oxyCODONE/APAP 10/325MG (PERCOCET 10) TABLET PO PRN (01:15)
[2020-08-01 03:56] VITALS: BP 132/77
[2020-08-01] MEDS: ONDANSETRON 4 MG/2 ML (SDV) Z0FRAN IV PRN (05:11)
[2020-08-01 05:13] LABS: BASOPHILS % (AUTO) 0 % (0-10); EOSINOPHILS % (AUTO) 0 % (0-10); HEMATOCRIT 34 % (35-52); LYMPHOCYTES # (AUTO) 0.5 10^3/uL (1.0-4.0); LYMPHOCYTES % (AUTO) 5 % (12-44); MEAN CORPUSCULAR HEMOGLOBIN 29 pg (25-34); MEAN CORPUSCULAR HGB CONC 33 g/dL (32-36); MEAN CORPUSCULAR VOLUME 88 fL (80-99); MEAN PLATELET VOLUME 11.3 fL (9.0-12.2); MONOCYTES # (AUTO) 0.3 10^3/uL (0.0-1.0); MONOCYTES % (AUTO) 4 % (0-12); NEUTROPHILS # (AUTO) 8.3 10^3/uL (1.8-7.8); NEUTROPHILS % (AUTO) 91 % (42-75); PLATELET COUNT 282 10^3/uL (130-400); WHITE BLOOD COUNT 9.1 10^3/uL (4.3-11.0)
[2020-08-01 05:24] LABS: ALBUMIN 3.3 GM/DL (3.2-4.5); CHLORIDE 106 MMOL/L (98-107); POTASSIUM 3.8 MMOL/L (3.6-5.0); SODIUM 139 MMOL/L (135-145)
[2020-08-01 05:26] LABS: CALCIUM 8.7 MG/DL (8.5-10.1)
[2020-08-01 05:27] LABS: GLUCOSE 130 MG/DL (70-105); TOTAL PROTEIN 5.7 GM/DL (6.4-8.2)
[2020-08-01 05:28] LABS: CARBON DIOXIDE 24 MMOL/L (21-32)
[2020-08-01 05:29] LABS: BILIRUBIN,TOTAL 0.3 MG/DL (0.1-1.0)
[2020-08-01 05:30] LABS: ALKALINE PHOSPHATASE 39 U/L (40-136); CREATININE SERUM 0.64 MG/DL (0.60-1.30); GFR ESTIMATED > 60
[2020-08-01 05:31] LABS: BUN/CREATININE RATIO 14
[2020-08-01 05:33] LABS: ALANINE AMINOTRANSFERASE 14 U/L (0-55)
[2020-08-01] MEDS: methylPREDNISolone 125 MG (Solu-MEDROL) VIAL IV SCH ×3 (06:39→17:26)
[2020-08-01] MEDS: GABAPENTIN 100 MG (NEURONTIN) CAP PO SCH ×4 (06:39→20:22)
[2020-08-01] MEDS: PROMETHAZINE INJ 25 MG/ML (PHENERGAN) AMP IM PRN (06:44)
[2020-08-01 08:00] VITALS: BP 109/55
[2020-08-01] MEDS: PANTOPRAZOLE 40 MG (PROTONIX) VIAL IV SCH (09:55)
--- NOTE | 2020-08-01 11:41 | Progress Note - Surgery ---
Subjective Time Seen by a Provider: 10:43 Subjective/Events-last exam Pt seen and examined, she thinks her abdominal pain is a little worse and pain meds not helping. She is able to eat only small amount of clears. Review of Systems General: Fatigue, Malaise Pulmonary: No Dyspnea, No Cough Cardiovascular: No: Chest Pain, Palpitations Gastrointestinal: Nausea, Abdominal Pain Objective Exam Vital Signs Date Time Temp Pulse Resp B/P (MAP) Pulse Ox O2 Delivery O2 Flow Rate FiO2 08/01/20 08:00 36.2 45 18 109/55 (73) 97 Room Air 08/01/20 03:56 36.2 81 16 132/77 (95) 94 Room Air 08/01/20 00:37 36.4 62 16 107/59 (75) 97 Room Air 07/31/20 23:57 36.3 07/31/20 21:10 Room Air 07/31/20 20:23 36.3 59 17 114/64 (81) 98 Room Air 07/31/20 16:20 36.4 60 16 98/62 (74) 97 Room Air 07/31/20 12:00 36.1 55 20 113/63 (80) 97 Room Air I & O 08/01/20 07:00 Intake Total 2160 ml Output Total 900 ml Balance 1260 ml Capillary Refill : Less Than 3 Seconds General Appearance: No Apparent Distress, WD/WN, Anxious Respiratory: Lungs Clear, Normal Breath Sounds, No Accessory Muscle Use, No Respiratory Distress Cardiovascular: Regular Rate, Rhythm, No Murmur Gastrointestinal: normal bowel sounds, soft, tenderness (diffuse but more in RLQ); No mass Extremity: No Pedal Edema Results Lab Laboratory Tests 08/01/20 05:05: White Blood Count 9.1, Red Blood Count 3.82, Hemoglobin 11.0L, Hematocrit 34L, Mean Corpuscular Volume 88, Mean Corpuscular Hemoglobin 29, Mean Corpuscular Hemoglobin Concent 33, Red Cell Distribution Width 13.4, Platelet Count 282, Mean Platelet Volume 11.3, Immature Granulocyte % (Auto) 1, Neutrophils (%) (Auto) 91H, Lymphocytes (%) (Auto) 5L, Monocytes (%) (Auto) 4, Eosinophils (%) (Auto) 0, Basophils (%) (Auto) 0, Neutrophils # (Auto) 8.3H, Lymphocytes # (Auto) 0.5L, Monocytes # (Auto) 0.3, Eosinophils # (Auto) 0.0, Basophils # (Auto) 0.0, Immature Granulocyte # (Auto) 0.1, Sodium Level 139, Potassium Level 3.8, Chloride Level 106, Carbon Dioxide Level 24, Anion Gap 9, Blood Urea Nitrogen 9, Creatinine 0.64, Estimat Glomerular Filtration Rate > 60, BUN/Creatinine Ratio 14, Glucose Level 130H, Calcium Level 8.7, Corrected Calcium 9.3, Total Bilirubin 0.3, Aspartate Amino Transf (AST/SGOT) 15, Alanine Aminotransferase (ALT/SGPT) 14, Alkaline Phosphatase 39L, Total Protein 5.7L, Albumin 3.3 Assessment/Plan Assessment/Plan Assessment/Plan Colitis seen on CT ??Ulcerative Colitis flareup -pt is on steroids, may need to add something else to control flare up (ie Mesalamine, etc). Pt states she can't get appt at until November and is asking about anyone in [place] she can see. I told her we could try to look into that Sunday unfortunately can't do anything over the weekend. She may need an EGD/Colonoscopy while she is in the hospital, Dr. Massey will take over tomorrow. TAHMINA JOHNSON DO August 01, 2020 11:41
[2020-08-01] MEDS: LORazepam 1 MG (ATIVAN) TAB PO PRN (11:54)
[2020-08-01 12:10] VITALS: BP 98/54
[2020-08-01] MEDS ORDERED: BISACODYL 5 MG (DULCOLAX) TABLET PO SCH ×2 (13:00→15:00)
--- NOTE | 2020-08-01 13:00 | Progress Note - Hospitalist ---
Subjective HPI/CC On Admission Date Seen by Provider: August 01, 2020 Time Seen by Provider: 11:30 Subjective/Events-last exam Patient continues to complain of 10 out of 10 abdominal pain unrelieved by hydrocodone or fentanyl. She remains afebrile with a normal heart rate with skin warm and dry does not appear to be in pain other than when asked. Bowels have not moved. Discussed her case with Dr. Abad and at this juncture because of the abnormal CT we will go ahead and proceed with colonoscopy tomorrow. Certainly inflammatory bowel disease does not seem to be likely considering that she has had no diarrhea no obstructive bowel symptoms with had a normal C- reactive protein and vitals. Adhesions could be a consideration because of the multiple abdominal surgeries that she has had. Will DC all narcotics for the possibility that this is adding to her pain and problems. Review of Systems Gastrointestinal: Abdominal Pain Objective Exam Vital Signs Vital Signs Date Time Temp Pulse Resp B/P (MAP) Pulse Ox O2 Delivery O2 Flow Rate FiO2 08/01/20 12:10 36.6 73 20 98/54 (69) 97 Room Air Capillary Refill : Less Than 3 Seconds General Appearance: Mild Distress Neck: Normal Inspection, Non Tender, Supple Respiratory: Lungs Clear, Normal Breath Sounds, No Accessory Muscle Use, No Respiratory Distress Cardiovascular: Regular Rate, Rhythm, No Gallop, No JVD, No Murmur, Normal Peripheral Pulses Gastrointestinal: Normal Bowel Sounds, No Organomegaly, Soft, Guarding Extremity: Normal Capillary Refill, Normal Inspection, Normal Range of Motion, Non Tender Results/Procedures Lab Laboratory Tests 08/01/20 05:05 Patient resulted labs reviewed. Assessment/Plan Assessment and Plan Assess & Plan/Chief Complaint Abdominal pain with mild thickening of the left colon. We will proceed with col onoscopy tomorrow change to Toradol for pain control from narcotics Multiple previous abdominal surgeries possibility of adhesions persist Leg pain yesterday with normal venous Dopplers but slightly elevated D-dimer Diagnosis/Problems Diagnosis/Problems (1) Abdominal pain Status: Acute Qualifiers: Abdominal location: generalized Qualified Codes: R10.84 - Generalized abdominal pain YANA MARTINEZ MD August 01, 2020 13:00
[2020-08-01] MEDS: KETOROLAC 30 MG/ML VIAL IVP PRN ×2 (13:50→20:22)
[2020-08-01 16:00] VITALS: BP 103/63
[2020-08-01] MEDS ORDERED: polyethylene glycoL Bowel Prep(MIRALAX) 238 GM PO SCH (18:00)
[2020-08-01 20:00] VITALS: BP 101/59
[2020-08-01] MEDS: LORazepam INJ 2 MG/ML (ATIVAN) VIAL IVP PRN (22:57)
[2020-08-02] VITALS: BP 116/64
[2020-08-02] MEDS: methylPREDNISolone 125 MG (Solu-MEDROL) VIAL IV SCH ×4 (00:07→17:36)
[2020-08-02] MEDS: CIPROFLOXACIN IV 400MG/200ML 200 ML IV SCH ×2 (00:08→13:30)
[2020-08-02] MEDS: metroNIDAZOLE 500MG/100ML IVPB 100 ML IV SCH ×2 (02:44→13:30)
[2020-08-02 04:00] VITALS: BP 106/72
[2020-08-02 05:14] LABS: BASOPHILS % (AUTO) 0 % (0-10); EOSINOPHILS % (AUTO) 0 % (0-10); HEMATOCRIT 36 % (35-52); HEMOGLOBIN 11.6 g/dL (11.5-16.0); LYMPHOCYTES # (AUTO) 0.7 10^3/uL (1.0-4.0); LYMPHOCYTES % (AUTO) 7 % (12-44); MEAN CORPUSCULAR HEMOGLOBIN 28 pg (25-34); MEAN CORPUSCULAR HGB CONC 32 g/dL (32-36); MEAN CORPUSCULAR VOLUME 88 fL (80-99); MEAN PLATELET VOLUME 11.7 fL (9.0-12.2); MONOCYTES # (AUTO) 0.5 10^3/uL (0.0-1.0); MONOCYTES % (AUTO) 5 % (0-12); NEUTROPHILS # (AUTO) 8.2 10^3/uL (1.8-7.8); NEUTROPHILS % (AUTO) 87 % (42-75); PLATELET COUNT 274 10^3/uL (130-400); WHITE BLOOD COUNT 9.3 10^3/uL (4.3-11.0)
[2020-08-02 05:29] LABS: ALBUMIN 3.3 GM/DL (3.2-4.5)
[2020-08-02 05:30] LABS: CHLORIDE 105 MMOL/L (98-107); POTASSIUM 3.6 MMOL/L (3.6-5.0); SODIUM 138 MMOL/L (135-145)
[2020-08-02 05:31] LABS: CALCIUM 8.3 MG/DL (8.5-10.1)
[2020-08-02 05:32] LABS: GLUCOSE 123 MG/DL (70-105); TOTAL PROTEIN 5.6 GM/DL (6.4-8.2)
[2020-08-02 05:33] LABS: CARBON DIOXIDE 23 MMOL/L (21-32)
[2020-08-02 05:34] LABS: BILIRUBIN,TOTAL 0.3 MG/DL (0.1-1.0)
[2020-08-02 05:35] LABS: ALKALINE PHOSPHATASE 36 U/L (40-136)
[2020-08-02 05:36] LABS: CREATININE SERUM 0.64 MG/DL (0.60-1.30); GFR ESTIMATED > 60
[2020-08-02 05:37] LABS: BUN/CREATININE RATIO 13
[2020-08-02 05:38] LABS: ALANINE AMINOTRANSFERASE 14 U/L (0-55); MAGNESIUM 2.2 MG/DL (1.6-2.4)
[2020-08-02] MEDS: GABAPENTIN 100 MG (NEURONTIN) CAP PO SCH ×4 (06:27→20:59)
[2020-08-02 08:00] VITALS: BP 107/59
[2020-08-02] MEDS: PANTOPRAZOLE 40 MG (PROTONIX) VIAL IV SCH (09:24)
[2020-08-02] MEDS: KETOROLAC 30 MG/ML VIAL IVP PRN ×2 (09:31→17:36)
--- NOTE | 2020-08-02 10:21 | Progress Note - Hospitalist ---
Subjective HPI/CC On Admission Date Seen by Provider: August 02, 2020 Time Seen by Provider: 09:40 Subjective/Events-last exam Pt still having abdominal pain out of proportion to her reports Thickened area of the sigmoid colon so will evaluate that on colonoscopy tomorrow Lovenox will be given if okay with Dr. Abad Will initiate PT to get her out of bed CT scan reviewed Review of Systems General: Fatigue, Malaise Gastrointestinal: Abdominal Pain Objective Exam Vital Signs Vital Signs Date Time Temp Pulse Resp B/P (MAP) Pulse Ox O2 Delivery O2 Flow Rate FiO2 08/03/20 04:57 36.2 51 20 101/57 (72) 95 Room Air Capillary Refill : Less Than 3 Seconds General Appearance: No Apparent Distress, WD/WN Respiratory: Lungs Clear Cardiovascular: Regular Rate, Rhythm Gastrointestinal: Tenderness Neurologic/Psychiatric: Alert, Oriented x3 Results/Procedures Lab Patient resulted labs reviewed. Assessment/Plan Assessment and Plan Assess & Plan/Chief Complaint Assessment: Abdominal pain with thickened sigmoid colon on CT scan Prior h/o IBS and abdominal surgeries Long standing constipation Plan: Colonoscopy Pain control Lovenox PT TISHA FLORENTINO DO August 02, 2020 10:21
[2020-08-02] MEDS ORDERED: DICYCLOMINE 10 MG (BENTYL) CAP PO PRN (10:30)
[2020-08-02] MEDS: oxyCODONE/APAP 5/325MG (PERCOCET 5) TABLET PO PRN ×2 (10:56→15:12)
[2020-08-02] MEDS: ENOXAPARIN 40 MG/0.4 ML (LOVENOX) SYR SC SCH (10:57)
[2020-08-02] MEDS: LACTATED RINGERS 1,000 ML IV SCH (10:57)
[2020-08-02 11:41] VITALS: BP 104/65
--- NOTE | 2020-08-02 14:22 | Physical Therapy Progress Note ---
Therapy Progress Note Patient adamantly declined PT intervention. Patient reports she is up independently and does not need PT. PT respects patient's wishes. No skilled PT indicated. 1 ref/DC ([id number]) [facility] PT August 02, 2020 14:22
[2020-08-02] MEDS: LORazepam INJ 2 MG/ML (ATIVAN) VIAL IVP PRN (15:12)
[2020-08-02 15:34] VITALS: BP 101/61
--- NOTE | 2020-08-02 18:06 | Conscious Sedation/ASA ---
Conscious Sedation Pre-Proced Time 18:00 ASA Score 2 For ASA 3 and 4: Consider anesthesia and medical clearance. Also, for patients with a history of failed moderate sedation consider anesthesia. Airway Lungs Heart ASA score ASA 1: a normal healthy patient ASA 2: a patient with a mild systemic disease (mid diabetes, controlled hypertension, obesity ASA 3: a patient with a severe systemic disease that limits activity (angina, COPD, prior Myocardial infarction) ASA 4: a patient with an incapacitating disease that is a constant threat to life (CHF, renal failure) ASA 5: a moribund patient not expected to survive 24 hrs. (ruptured aneurysm) ASA 6: a declared brain- patient whose organs are being harvested. For emergent operations, add the letter E after the classification Mallampati Classification Grade 2 Sedation Plan Analgesia, Amnesia, Plan communicated to team members, Discussed options with patient/fam, Discussed risks with patient/fam The patient is an appropriate candidate to undergo the planned procedure, sedation, and anesthesia. The patient immediately re-assessed prior to indication. STEPHANIE METCALF MD August 02, 2020 18:06
--- NOTE | 2020-08-02 18:07 | Progress Note-Pre Operative ---
Pre-Operative Progress Note H&P Reviewed The H&P was reviewed, patient examined and no changes noted. Date Seen by Provider: August 02, 2020 Time Seen by Provider: 18:00 Date H&P Reviewed: August 02, 2020 Time H&P Reviewed: 18:00 Pre-Operative Diagnosis: colitis, recurrent abd pain STEPHANIE METCALF MD August 02, 2020 18:07
[2020-08-02 19:42] VITALS: BP 95/54
[2020-08-02] MEDS: HYDROmorphone 2 MG/ML VIAL (DILAUDID) IV PRN (20:58)
[2020-08-02] MEDS: HALOPERIDOL 5 MG/ML (HALDOL) VIAL IM PRN (20:59)
[2020-08-03] VITALS (8 sets, daily range): BP systolic 97–150; BP diastolic 53–87
[2020-08-03] MEDS: methylPREDNISolone 125 MG (Solu-MEDROL) VIAL IV SCH ×4 (00:09→17:05)
[2020-08-03] MEDS: HYDROmorphone 2 MG/ML VIAL (DILAUDID) IV PRN ×6 (00:09→20:35)
[2020-08-03] MEDS: LACTATED RINGERS 1,000 ML IV SCH ×3 (01:23→17:06)
[2020-08-03] MEDS: metroNIDAZOLE 500MG/100ML IVPB 100 ML IV SCH ×2 (01:23→15:15)
[2020-08-03] MEDS: CIPROFLOXACIN IV 400MG/200ML 200 ML IV SCH ×2 (01:23→14:15)
[2020-08-03 05:46] LABS: BASOPHILS % (AUTO) 0 % (0-10); EOSINOPHILS % (AUTO) 0 % (0-10); HEMATOCRIT 35 % (35-52); HEMOGLOBIN 11.5 g/dL (11.5-16.0); LYMPHOCYTES # (AUTO) 0.6 10^3/uL (1.0-4.0); LYMPHOCYTES % (AUTO) 8 % (12-44); MEAN CORPUSCULAR HEMOGLOBIN 29 pg (25-34); MEAN CORPUSCULAR HGB CONC 33 g/dL (32-36); MEAN CORPUSCULAR VOLUME 87 fL (80-99); MEAN PLATELET VOLUME 11.7 fL (9.0-12.2); MONOCYTES # (AUTO) 0.4 10^3/uL (0.0-1.0); MONOCYTES % (AUTO) 6 % (0-12); NEUTROPHILS # (AUTO) 6.3 10^3/uL (1.8-7.8); NEUTROPHILS % (AUTO) 86 % (42-75); PLATELET COUNT 286 10^3/uL (130-400); WHITE BLOOD COUNT 7.3 10^3/uL (4.3-11.0)
[2020-08-03] MEDS: GABAPENTIN 100 MG (NEURONTIN) CAP PO SCH ×4 (06:02→20:35)
[2020-08-03 06:14] LABS: ALBUMIN 3.1 GM/DL (3.2-4.5); CHLORIDE 105 MMOL/L (98-107); POTASSIUM 3.6 MMOL/L (3.6-5.0)
[2020-08-03 06:15] LABS: SODIUM 136 MMOL/L (135-145)
[2020-08-03 06:17] LABS: GLUCOSE 118 MG/DL (70-105); TOTAL PROTEIN 5.2 GM/DL (6.4-8.2)
[2020-08-03 06:18] LABS: CARBON DIOXIDE 24 MMOL/L (21-32)
[2020-08-03 06:19] LABS: BILIRUBIN,TOTAL 0.2 MG/DL (0.1-1.0)
[2020-08-03 06:20] LABS: ALKALINE PHOSPHATASE 32 U/L (40-136); GFR ESTIMATED > 60
[2020-08-03 06:22] LABS: BUN/CREATININE RATIO 13
[2020-08-03 06:23] LABS: ALANINE AMINOTRANSFERASE 13 U/L (0-55)
--- NOTE | 2020-08-03 07:04 | Progress Note - Hospitalist ---
Subjective HPI/CC On Admission Date Seen by Provider: August 03, 2020 Time Seen by Provider: 10:00 Subjective/Events-last exam Pt doing pretty well Denies any new issues Colonoscopy to be completed today by Dr. Massey Mother is at the bedside Abdominal pain is much improved Review of Systems General: Fatigue, Malaise Gastrointestinal: Abdominal Pain Objective Exam Vital Signs Vital Signs Date Time Temp Pulse Resp B/P (MAP) Pulse Ox O2 Delivery O2 Flow Rate FiO2 08/04/20 04:00 36.4 74 16 118/62 (80) 97 Room Air 08/03/20 16:10 8 Capillary Refill : Less Than 3 Seconds General Appearance: No Apparent Distress, WD/WN Respiratory: Lungs Clear Cardiovascular: Regular Rate, Rhythm Neurologic/Psychiatric: Alert, Oriented x3 Results/Procedures Lab Laboratory Tests 08/03/20 05:24 Patient resulted labs reviewed. Assessment/Plan Assessment and Plan Assess & Plan/Chief Complaint Assessment: Abdominal pain with thickened sigmoid colon on CT scan Prior h/o IBS and abdominal surgeries Long standing constipation Plan: Colonoscopy Pain control Lovenox PT 08/03/20: C-scope today Monitor pain TISHA FLORENTINO DO August 03, 2020 07:03
[2020-08-03] MEDS: PANTOPRAZOLE 40 MG (PROTONIX) TAB PO SCH (07:24)
[2020-08-03] MEDS: PANTOPRAZOLE 40 MG (PROTONIX) VIAL IV SCH (09:35)
[2020-08-03] MEDS: ENOXAPARIN 40 MG/0.4 ML (LOVENOX) SYR SC SCH (10:30)
[2020-08-03] MEDS ORDERED: MIDAZOLAM 2 MG/2 ML (VERSED) VIAL ONE (14:44)
[2020-08-03] MEDS ORDERED: PROPOFOL INJECTION 50 ML IV ONE ×2 (14:44→15:19)
[2020-08-03] MEDS ORDERED: LACTATED RINGERS 1,000 ML IV ONE (14:49)
[2020-08-03] MEDS ORDERED: LIDOCAINE JELLY 2% 6 ML SYRINGE ONE (14:57)
[2020-08-03] MEDS ORDERED: HURRICAINE EXT TUBE (BENZOCAINE) ONE (14:57)
[2020-08-03] MEDS ORDERED: GLYCOPYRROLATE 0.2 MG/ML (ROBINUL) 2 ML VIAL ONE (14:58)
[2020-08-03] MEDS ORDERED: LACTATED RINGERS 1,000 ML IV STA (15:17)
[2020-08-03] MEDS ORDERED: LIDOCAINE JELLY 2% 6 ML SYRINGE MM PRN (15:30)
[2020-08-03] MEDS ORDERED: HURRICAINE EXT TUBE (BENZOCAINE) XX PRN (15:30)
--- NOTE | 2020-08-03 16:28 | Anesthesia-General Post-Op ---
MAC Patient Condition Mental Status/LOC: Same as Preop Cardiovascular: Satisfactory Nausea/Vomiting: Absent Respiratory: Satisfactory Pain: Controlled Complications: Absent Post Op Complications Complications None Follow Up Care/Instructions Patient Instructions None needed. Anesthesiology Discharge Order Discharge Order Patient is doing well, no complaints, stable vital signs, no apparent adverse anesthesia problems. No complications reported per nursing. CAS CORNELL CRNA August 03, 2020 16:28
[2020-08-03] MEDS: LORazepam INJ 2 MG/ML (ATIVAN) VIAL IVP PRN (16:35)
[2020-08-03] MEDS: oxyCODONE/APAP 5/325MG (PERCOCET 5) TABLET PO PRN ×2 (17:05→21:38)
--- NOTE | 2020-08-03 20:38 | OPERATIVE REPORT ---
DATE OF SERVICE: 08/03/2020 ADMITTING PHYSICIAN: Chantale Mir. PREOPERATIVE DIAGNOSIS: Recurrent abdominal pain, rule out colitis. POSTOPERATIVE DIAGNOSES: Reflux esophagitis stage II, moderate gastritis with a small antral erosion. Mild chronic stage II external and internal hemorrhoids. Questionable mild chronic inflammation of the ascending and descending colon. No definitive ulcerations or acute inflammation. PROCEDURE: EGD with biopsy, colonoscopy with biopsy. SURGEON: Stephanie Metcalf MD. ANESTHESIA: Monitored anesthesia care. ESTIMATED BLOOD LOSS: Minimal. FINDINGS: Reflux esophagitis stage II, moderate gastritis with a small antral erosion. Mild chronic stage II external and internal hemorrhoids. Questionable mild chronic inflammation of the ascending and descending colon. No definitive ulcerations or acute inflammation. DISPOSITION: The patient tolerated the procedure well. INDICATIONS: The patient is a 29-year-old female known to us. She has had a previous surgery by us including a laparoscopic cholecystectomy as well as incisional hernia repair as well as a mesh explantation. She has had issues with recurrent episodes of abdominal pain, which is normally diffuse with associated nausea; however, no vomiting. She has had previous diagnostic imaging, which have shown signs of inflammation of the colon consistent with colitis. On this admission again, she did have a CT scan of the abdomen and pelvis performed, which was interpreted as an active inflammation of the colon consistent with colitis. She also reports issues with rectal bleeding as well as mucousy stools as well. Since being admitted, she has been placed on steroids as well as antibiotics and five ASA product. DESCRIPTION OF PROCEDURE: The patient was brought to the endoscopy suite, laid in the left lateral decubitus position. After adequate IV pain and sedative medications and monitored anesthesia care, the mouthpiece was applied. The endoscope was placed in the mouth, visualizing the pharynx and hypopharyngeal region. Vocal cords, epiglottis and vallecula identified and appeared to be normal. The endoscope was then gently intubated. The esophageal opening and esophagus insufflated. The endoscope was then advanced through the valves of Farah through the first, second and third portion of esophagus at the level of the GE junction, a reflux esophagitis stage II identified. No ulcers or strictures identified in this region. A biopsy was taken with forceps with visualization of good hemostasis. The endoscope was then advanced into the stomach and endoscope retroflexed, visualizing no hiatal hernia. There was a moderate severity gastritis more focused towards antrum with an antral erosion also identified, which was small. A biopsy was taken within this region with forceps with visualization of good hemostasis. Endoscope was then advanced to the pylorus and the first and second portion of the duodenum, which appeared normal with no signs of duodenitis or any ulcerations. The endoscope was then slowly withdrawn while taking a second look and suctioning of residual air with no additional findings. We then proceeded with the colonoscopy portion of the procedure and a digital rectal examination was performed, which revealed mild chronic stage II external and internal hemorrhoids, not actively edematous nor inflamed and no bleeding. Normal suture tone was felt and there were no palpable masses. The endoscope was then intubated and anus and rectum gently insufflated. The endoscope was then advanced through the valves of Farah of the rectum with no mucosal inflammatory changes identified as well as no neoplasms. We then proceeded through the sigmoid into the ascending colon where a possible mild chronic inflammation identified; however, no acute inflammation as well as no ulcerative plaques or cobblestoning identified. The transverse colon appeared normal and these potential chronic inflammatory changes are also identified of the ascending colon. The cecum appeared normal. We then proceeded with random biopsies of the cecum, ascending colon, transverse colon, descending colon as well as the rectum with a biopsy forceps and visualization of good hemostasis. The patient tolerated the procedure well. We will continue with medical management with her current medication regimen and start a clear liquid diet and advance as tolerated. She is also scheduled to see a development technician in the near future as well. Job ID: [id number] DocumentID: [id number] Dictated Date: 08/03/2020 16:15:24 Airbrush Artist Technical Date: 08/03/2020 20:36:51 Dictated By: STEPHANIE METCALF MD
[2020-08-03] MEDS: KETOROLAC 30 MG/ML VIAL IVP PRN (21:34)
[2020-08-03] MEDS: ZOLPIDEM 5 MG (AMBIEN) TAB PO PRN (22:54)
[2020-08-04] VITALS: BP 94/55
[2020-08-04] MEDS: methylPREDNISolone 125 MG (Solu-MEDROL) VIAL IV SCH ×3 (00:28→11:06)
[2020-08-04] MEDS: HYDROmorphone 2 MG/ML VIAL (DILAUDID) IV PRN ×7 (01:32→20:36)
[2020-08-04] MEDS: CIPROFLOXACIN IV 400MG/200ML 200 ML IV SCH (01:32)
[2020-08-04] MEDS: metroNIDAZOLE 500MG/100ML IVPB 100 ML IV SCH (01:32)
[2020-08-04] MEDS: LACTATED RINGERS 1,000 ML IV SCH (01:32)
[2020-08-04] MEDS: ONDANSETRON 4 MG/2 ML (SDV) Z0FRAN IV PRN ×3 (01:57→14:47)
[2020-08-04 04:00] VITALS: BP 118/62
[2020-08-04] MEDS: PROMETHAZINE INJ 25 MG/ML (PHENERGAN) AMP IM PRN ×2 (04:28→20:33)
[2020-08-04] MEDS: oxyCODONE/APAP 5/325MG (PERCOCET 5) TABLET PO PRN ×2 (04:32→21:33)
[2020-08-04] MEDS: GABAPENTIN 100 MG (NEURONTIN) CAP PO SCH ×4 (06:26→21:33)
[2020-08-04 06:32] LABS: BASOPHILS % (AUTO) 0 % (0-10); EOSINOPHILS % (AUTO) 0 % (0-10); HEMATOCRIT 38 % (35-52); HEMOGLOBIN 12.8 g/dL (11.5-16.0); LYMPHOCYTES # (AUTO) 0.6 10^3/uL (1.0-4.0); LYMPHOCYTES % (AUTO) 5 % (12-44); MEAN CORPUSCULAR HEMOGLOBIN 29 pg (25-34); MEAN CORPUSCULAR HGB CONC 34 g/dL (32-36); MEAN CORPUSCULAR VOLUME 87 fL (80-99); MEAN PLATELET VOLUME 11.5 fL (9.0-12.2); MONOCYTES # (AUTO) 0.8 10^3/uL (0.0-1.0); MONOCYTES % (AUTO) 7 % (0-12); NEUTROPHILS # (AUTO) 10.1 10^3/uL (1.8-7.8); NEUTROPHILS % (AUTO) 88 % (42-75); PLATELET COUNT 333 10^3/uL (130-400); WHITE BLOOD COUNT 11.6 10^3/uL (4.3-11.0)
[2020-08-04 06:39] LABS: ALBUMIN 3.1 GM/DL (3.2-4.5); CHLORIDE 104 MMOL/L (98-107); POTASSIUM 3.3 MMOL/L (3.6-5.0); SODIUM 137 MMOL/L (135-145)
[2020-08-04 06:40] LABS: AMYLASE 36 U/L (25-125); CALCIUM 7.9 MG/DL (8.5-10.1)
[2020-08-04 06:41] LABS: GLUCOSE 157 MG/DL (70-105); TOTAL PROTEIN 5.2 GM/DL (6.4-8.2)
[2020-08-04 06:42] LABS: CARBON DIOXIDE 23 MMOL/L (21-32)
[2020-08-04 06:43] LABS: BILIRUBIN,TOTAL 0.2 MG/DL (0.1-1.0)
[2020-08-04 06:45] LABS: ALKALINE PHOSPHATASE 44 U/L (40-136); CREATININE SERUM 0.65 MG/DL (0.60-1.30); GFR ESTIMATED > 60
[2020-08-04 06:46] LABS: BUN/CREATININE RATIO 12; LYMPHOCYTES % (MANUAL) 6 %; MONOCYTES % (MANUAL) 4 %; NEUTROPHILS % (MANUAL) 90 %; RBC MORPH NORMAL
[2020-08-04 06:48] LABS: ALANINE AMINOTRANSFERASE 17 U/L (0-55); LIPASE 31 U/L (8-78)
[2020-08-04 07:34] LABS: ERYTHROCYTE SEDIMENTATION RATE 2 MM/HR (0-20)
[2020-08-04 08:00] VITALS: BP 111/71
[2020-08-04] MEDS: PANTOPRAZOLE 40 MG (PROTONIX) TAB PO SCH (08:41)
[2020-08-04] MEDS: PANTOPRAZOLE 40 MG (PROTONIX) VIAL IV SCH (08:42)
[2020-08-04] MEDS: KETOROLAC 30 MG/ML VIAL IVP PRN ×2 (08:42→14:49)
--- NOTE | 2020-08-04 10:03 | Progress Note-Post Operative ---
Post-Operative Progess Note Surgeon (s)/Sequins Spooler (s) Surgeon STEPHANIE METCALF MD Sequins Spooler: none Pre-Operative Diagnosis colitis, recurrent abd pain Post-Operative Diagnosis reflux esophagitis(stage 2), no HH, moderate gastritis. mild chronic stage 2 ext and int hemorrhoids, questionable chronic inflammation ascending and descending colon, no acute inflammation. Procedure & Operative Findings Date of Procedure 08/03/20 Procedure Performed/Findings EGD with bx. colonoscopy with bx. Anesthesia Type mac Estimated Blood Loss Estimated blood loss (mL): minimal Specimens/Packing Specimens Removed ge jxn, antrum, cecum, asc/transverse/desc colon, rectum STEPHANIE METCALF MD August 04, 2020 10:03
--- NOTE | 2020-08-04 11:06 | Progress Note - Hospitalist ---
Subjective HPI/CC On Admission Date Seen by Provider: August 04, 2020 Time Seen by Provider: 10:30 Subjective/Events-last exam Pt about the same Had a long conversation with Pt and mother about switching to a bland diet, ambulating every half hour, heplocking IV fluid, maintaining fluid intake, maintaining pain medication but ultimately discharging home very soon either this afternoon or tomorrow and giving the bowel time to recover. She only has a BM one time a month, which that has been ongoing since [age] years old, and has caused the colon dysfunction. Talked to her about the possibility of gastroenterology outpatient referral and possibility of colon resection and colostomy if the colon remains dysfunctional. Labs look good with amylase and lipase and inflammatory markers. Review of Systems Gastrointestinal: Abdominal Pain Objective Exam Vital Signs Vital Signs Date Time Temp Pulse Resp B/P (MAP) Pulse Ox O2 Delivery O2 Flow Rate FiO2 08/05/20 03:51 36.4 71 18 124/76 (92) 97 Room Air 08/03/20 16:10 8 Capillary Refill : Less Than 3 Seconds General Appearance: No Apparent Distress, WD/WN, Chronically ill Respiratory: Lungs Clear Cardiovascular: Regular Rate, Rhythm Neurologic/Psychiatric: Alert, Oriented x3 Results/Procedures Lab Laboratory Tests 08/04/20 06:19 Patient resulted labs reviewed. Assessment/Plan Assessment and Plan Assess & Plan/Chief Complaint Assessment: Abdominal pain with thickened sigmoid colon on CT scan Prior h/o IBS and abdominal surgeries Long standing constipation Plan: Colonoscopy Pain control Lovenox PT 08/03/20: C-scope today Monitor pain 08/04/20: HLIVF Ambulate [place] diet TISHA FLORENTINO DO August 04, 2020 11:06
[2020-08-04] MEDS: ENOXAPARIN 40 MG/0.4 ML (LOVENOX) SYR SC SCH (11:07)
[2020-08-04 11:35] VITALS: BP 133/87
[2020-08-04] MEDS: LORazepam INJ 2 MG/ML (ATIVAN) VIAL IVP PRN ×2 (13:24→21:33)
[2020-08-04 15:33] VITALS: BP 114/73
--- NOTE | 2020-08-04 16:02 | Progress Note ---
Subjective Date Seen by a Provider: August 04, 2020 Time Seen by a Provider: 15:30 Subjective/Events-last exam doing ok. slightly better than the past few days. tolerating some food however now having immediate diarrhea after eating. no red blood per rectum. still having abd pain however toradol/hydromorphone combo seems to work better. Objective Exam Vital Signs Date Time Temp Pulse Resp B/P (MAP) Pulse Ox O2 Delivery O2 Flow Rate FiO2 08/04/20 15:33 38.2 69 18 114/73 (87) 95 Room Air 08/04/20 11:35 37.1 89 18 133/87 (102) 96 Room Air 08/04/20 08:00 Room Air 08/04/20 08:00 36.3 67 18 111/71 (84) 95 Room Air 08/04/20 04:00 36.4 74 16 118/62 (80) 97 Room Air 08/04/20 00:00 36.3 65 18 94/55 (68) 97 Room Air 08/03/20 20:35 Room Air 08/03/20 19:33 36.5 73 20 124/76 (92) 97 Room Air 08/03/20 17:00 36.1 66 20 150/87 (108) 98 Room Air 08/03/20 16:10 98 16 99 OxyMask 8 08/03/20 16:05 90 16 99 Room Air 8 I & O 08/04/20 07:00 Intake Total 1940 ml Balance 1940 ml Capillary Refill : Less Than 3 Seconds General Appearance: No Apparent Distress HEENT: PERRL/EOMI Neck: Full Range of Motion Respiratory: Chest Non Tender, Lungs Clear, Normal Breath Sounds Cardiovascular: Regular Rate, Rhythm Gastrointestinal: soft, tenderness Extremity: Normal Capillary Refill Neurologic/Psychiatric: Alert, Oriented x3 Skin: Normal Color Lymphatic: No Adenopathy Results Lab Laboratory Tests 08/04/20 06:19: White Blood Count 11.6H, Red Blood Count 4.38, Hemoglobin 12.8, Hematocrit 38, Mean Corpuscular Volume 87, Mean Corpuscular Hemoglobin 29, Mean Corpuscular Hemoglobin Concent 34, Red Cell Distribution Width 13.0, Platelet Count 333, Mean Platelet Volume 11.5, Immature Granulocyte % (Auto) 1, Neutrophils (%) (Auto) 88H, Lymphocytes (%) (Auto) 5L, Monocytes (%) (Auto) 7, Eosinophils (%) (Auto) 0, Basophils (%) (Auto) 0, Neutrophils # (Auto) 10.1H, Lymphocytes # (Auto) 0.6L, Monocytes # (Auto) 0.8, Eosinophils # (Auto) 0.0, Basophils # (Auto) 0.0, Immature Granulocyte # (Auto) 0.1, Neutrophils % (Manual) 90, Lymphocytes % (Manual) 6, Monocytes % (Manual) 4, Blood Morphology Comment NORMAL, Erythrocyte Sedimentation Rate 2, Sodium Level 137, Potassium Level 3.3L , Chloride Level 104, Carbon Dioxide Level 23, Anion Gap 10, Blood Urea Nitrogen 8, Creatinine 0.65, Estimat Glomerular Filtration Rate > 60, BUN/Creatinine Ratio 12, Glucose Level 157H, Calcium Level 7.9L, Corrected Calcium 8.6, Total Bilirubin 0.2, Aspartate Amino Transf (AST/SGOT) 21, Alanine Aminotransferase (ALT/SGPT) 17, Alkaline Phosphatase 44, C-Reactive Protein High Sensitivity 0.04, Total Protein 5.2L, Albumin 3.1L, Amylase Level 36, Lipase 31, Procalcitonin 0.01 Microbiology 08/03/20 Stool Culture - Preliminary, Resulted 08/03/20 MRSA Screen - Final, Complete MRSA not isolated Assessment/Plan Assessment/Plan Assess & Plan/Chief Complaint colitis, persistent abd pain, anorexia, diarrhea. cont abx. cont steroids. cont pain meds. add alprazolam for anxiety/sleep. SS consult for more urgent gastroenterolory consult after discharge(macrina parker). STEPHANIE METCALF MD August 04, 2020 16:02
[2020-08-04] MEDS ORDERED: ALPRAZolam 1 MG (XANAX) TAB PO PRN (16:15)
[2020-08-04 20:00] VITALS: BP 119/75
[2020-08-04] MEDS: HALOPERIDOL 5 MG/ML (HALDOL) VIAL IM PRN (21:35)
[2020-08-04] MEDS: ZOLPIDEM 5 MG (AMBIEN) TAB PO PRN (23:59)
[2020-08-05] VITALS: BP 116/75
[2020-08-05 03:51] VITALS: BP 124/76
[2020-08-05 05:38] LABS: ALBUMIN 2.7 GM/DL (3.2-4.5); BASOPHILS % (AUTO) 0 % (0-10); CHLORIDE 107 MMOL/L (98-107); EOSINOPHILS % (AUTO) 0 % (0-10); HEMATOCRIT 37 % (35-52); HEMOGLOBIN 12.1 g/dL (11.5-16.0); LYMPHOCYTES # (AUTO) 1.5 10^3/uL (1.0-4.0); LYMPHOCYTES % (AUTO) 12 % (12-44); MEAN CORPUSCULAR HEMOGLOBIN 29 pg (25-34); MEAN CORPUSCULAR HGB CONC 32 g/dL (32-36); MEAN CORPUSCULAR VOLUME 89 fL (80-99); MEAN PLATELET VOLUME 11.2 fL (9.0-12.2); MONOCYTES # (AUTO) 1.7 10^3/uL (0.0-1.0); MONOCYTES % (AUTO) 14 % (0-12); NEUTROPHILS # (AUTO) 8.8 10^3/uL (1.8-7.8); NEUTROPHILS % (AUTO) 72 % (42-75); PLATELET COUNT 304 10^3/uL (130-400); POTASSIUM 3.4 MMOL/L (3.6-5.0); SODIUM 139 MMOL/L (135-145); WHITE BLOOD COUNT 12.2 10^3/uL (4.3-11.0)
[2020-08-05 05:40] LABS: GLUCOSE 101 MG/DL (70-105); TOTAL PROTEIN 4.6 GM/DL (6.4-8.2)
[2020-08-05 05:41] LABS: CARBON DIOXIDE 26 MMOL/L (21-32)
[2020-08-05 05:42] LABS: BILIRUBIN,TOTAL 0.2 MG/DL (0.1-1.0)
[2020-08-05 05:44] LABS: ALKALINE PHOSPHATASE 31 U/L (40-136); GFR ESTIMATED > 60
[2020-08-05 05:45] LABS: BUN/CREATININE RATIO 23
[2020-08-05 05:47] LABS: ALANINE AMINOTRANSFERASE 23 U/L (0-55)
[2020-08-05] MEDS: GABAPENTIN 100 MG (NEURONTIN) CAP PO SCH ×2 (06:49→10:50)
[2020-08-05] MEDS: KETOROLAC 30 MG/ML VIAL IVP PRN (06:51)
[2020-08-05 08:14] VITALS: BP 124/81
[2020-08-05] MEDS: PANTOPRAZOLE 40 MG (PROTONIX) TAB PO SCH (08:27)
[2020-08-05] MEDS ORDERED: predniSONE 10 MG TAB PO SCH (09:00)
[2020-08-05] MEDS: ENOXAPARIN 40 MG/0.4 ML (LOVENOX) SYR SC SCH (10:50)
[2020-08-05] MEDS: ONDANSETRON 4 MG/2 ML (SDV) Z0FRAN IV PRN (11:19)
[2020-08-05] MEDS: oxyCODONE/APAP 5/325MG (PERCOCET 5) TABLET PO PRN (11:21)
[2020-08-05 11:38] VITALS: BP 129/87
[2020-08-05] MEDS ORDERED: SUCR1TAB36 PO (12:28)
[2020-08-05] MEDS ORDERED: OXYC1TAB12 PO (12:28)
[2020-08-05] MEDS ORDERED: DICY10CA12 PO (12:28)
[2020-08-05] MEDS ORDERED: METR500T PO (12:28)
[2020-08-05] MEDS ORDERED: CIPR500T5 PO (12:28)
[2020-08-05] MEDS ORDERED: PRD20T PO (12:28)
[2020-08-05] MEDS ORDERED: PANT40TA2 PO (12:28)
[2020-08-05] MEDS ORDERED: POLY17PO6 PO (12:28)
--- NOTE | 2020-08-05 12:29 | Discharge Summary ---
Discharge Summary Hospital Course Was the Problem List Reviewed?: Yes Problems/Dx: (1) Abdominal pain Status: Acute Qualifiers: Qualified Codes: R10.84 - Generalized abdominal pain Hospital Course Date of Admission: July 29, 2020 at 15:00 Admission Diagnosis : Family Physician/Provider: No,Local Physician Date of Discharge: 08/05/20 Discharge Diagnosis: sigmoid colon inflammation, severe constipation senior living issue, severe abdominal pain Hospital Course: Hospital course: Pt had a long hospital course for seven days, she did end up undergoing a colono scopy after a CT scan showed thickened sigmoid colon, she has history of the last 18 years of only having one BM per month, and it appears that has caused ongoing inflammation, she is maintained on steroids and will be discharged on a steroid taper dose. She was instructed to maintain a bland diet and take MiraLax to make sure she has plenty of bowel evacuations and to prevent this sort of issue from happening again. She will have close follow-up with Dr. Massey, [facility], and gastroenterology. Labs and Pending Lab Test: Laboratory Tests 08/05/20 05:20: White Blood Count 12.2H, Red Blood Count 4.22, Hemoglobin 12.1, Hematocrit 37, Mean Corpuscular Volume 89, Mean Corpuscular Hemoglobin 29, Mean Corpuscular Hemoglobin Concent 32, Red Cell Distribution Width 13.3, Platelet Count 304, Mean Platelet Volume 11.2, Immature Granulocyte % (Auto) 2, Neutrophils (%) (Auto) 72, Lymphocytes (%) (Auto) 12, Monocytes (%) (Auto) 14H, Eosinophils (%) (Auto) 0, Basophils (%) (Auto) 0, Neutrophils # (Auto) 8.8H, Lymphocytes # (Auto) 1.5, Monocytes # (Auto) 1.7H, Eosinophils # (Auto) 0.0, Basophils # (Auto) 0.0, Immature Granulocyte # (Auto) 0.2H, Sodium Level 139, Potassium Level 3.4L, Chloride Level 107, Carbon Dioxide Level 26, Anion Gap 6, Blood Urea Nitrogen 14, Creatinine 0.60, Estimat Glomerular Filtration Rate > 60, BUN/Creatinine Ratio 23, Glucose Level 101, Calcium Level 8.0L, Corrected Calcium 9.0, Total Bilirubin 0.2, Aspartate Amino Transf (AST/SGOT) 27, Alanine Aminotransferase (ALT/SGPT) 23, Alkaline Phosphatase 31L, Total Protein 4.6L, Albumin 2.7L Microbiology 08/03/20 Stool Culture - Final, Complete 08/03/20 MRSA Screen - Final, Complete MRSA not isolated Home Meds Active Miralax (Polyethylene Glycol 3350) 17 Gm Powd.pack 17 Gm PO BID Prednisone 20 Mg Tab 20 Mg PO DAILY Take 2 tabs(40mg)daily x 28 days then 1 PO daily x 7 days then 1/2 PO daily x 7 days then 1/4 PO daily for 7 days Protonix (Pantoprazole Sodium) 40 Mg Tablet.dr 40 Mg PO DAILY Carafate (Sucralfate) 1 Gm Tablet 1 Gm PO ACHS Ciprofloxacin HCl 500 Mg Tablet 500 Mg PO BID Flagyl (Metronidazole) 500 Mg Tablet 500 Mg PO BID Percocet 10-325 mg Tablet (Oxycodone HCl/Acetaminophen) 1 Each Tablet 1 Tab PO Q6H PRN MDD 3 TABS Dicyclomine HCl 10 Mg Capsule 10 Mg PO TID PRN Reported Ibuprofen 200 Mg Tablet 400-600 Mg PO Q8H PRN Ondansetron HCl 4 Mg Tablet 4 Mg PO Q4H PRN Amox Tr-K Clv 875-125 mg Tab (Amoxicillin/Potassium Clav) 1 Each Tablet 1 Ea PO BID FILLED 07-26-2020 #20/10 DAY SUPPLY Pantoprazole Sodium 40 Mg Tablet. 40 Mg PO DAILY Prednisone 20 Mg Tab 40 Mg PO DAILY FILLED 07-27-2020 #6/3 DAY SUPPLY TAKES 2 (20MG) TABS Metamucil Fiber Singles Packet (Psyllium Husk/Aspartame) 3.4 Gm Powd.pack 1 Packet PO DAILY Assessment/Pt Instructions [facility] 1 week GI referral Discharge Planning: <30 minutes discharge planning Discharge Instructions Discharge Diet: Other Diet (bland diet) Activity as Tolerated: Yes Discharge Physical Examination Vital Signs Vital Signs Date Time Temp Pulse Resp B/P (MAP) Pulse Ox O2 Delivery O2 Flow Rate FiO2 08/05/20 11:38 35.9 114 18 129/87 (101) 98 Room Air 08/03/20 16:10 8 General Appearance: No Apparent Distress, WD/WN, Chronically ill Allergies: Coded Allergies: clindamycin (Verified Allergy, Intermediate, oral blisters, SOB, 07/29/20) cinnamon (Verified Allergy, Unknown, 07/29/20) Discharge Summary Date of Admission July 29, 2020 at 15:00 Date of Discharge Discharge Date: August 05, 2020 Discharge Diagnosis Assessment: Abdominal pain with thickened sigmoid colon on CT scan Prior h/o IBS and abdominal surgeries Long standing constipation Plan: Colonoscopy Pain control Lovenox PT 08/03/20: C-scope today Monitor pain 08/04/20: HLIVF Ambulate Boring diet (1) Abdominal pain Status: Acute Qualifiers: Qualified Codes: R10.84 - Generalized abdominal pain TISHA FLORENTINO DO August 05, 2020 12:29
[2020-08-05 14:35] VITALS: BP 129/87
== END 2020-08-05 14:35 | disposition home or self-care (01) ==
LOC: EDUNIT# 09:56 → ER 09:57 → 4TH 15:00 → UNDOADMOB 15:00 → SDC 15:33 → 4TH 15:33 → SDC 08-05 14:35 → UNDODISOB 08-05 14:35
PROVIDERS: ATTEND Family Medicine
DX: K21.00 Gastro-esophageal reflux disease with esophagitis, without bleeding (principal); K52.9 Noninfective gastroenteritis and colitis, unspecified; K31.89 Other diseases of stomach and duodenum; K29.50 Unspecified chronic gastritis without bleeding; K59.00 Constipation, unspecified; K25.9 Gastric ulcer, unspecified as acute or chronic, without hemorrhage or perforation; K64.4 Residual hemorrhoidal skin tags; K64.1 Second degree hemorrhoids; Z20.822 Contact with and (suspected) exposure to COVID-19; Z90.49 Acquired absence of other specified parts of digestive tract; Z88.1 Allergy status to other antibiotic agents; Z79.899 Other long term (current) drug therapy; Z79.891 Long term (current) use of opiate analgesic; Z90.89 Acquired absence of other organs; Z98.51 Tubal ligation status; N39.0 Urinary tract infection, site not specified; M54.9 Dorsalgia, unspecified; G89.29 Other chronic pain; F32.9 Major depressive disorder, single episode, unspecified; F41.9 Anxiety disorder, unspecified
CPT/HCPCS: 43239; 45380; 74019; 74177; 80048; 80053 ×7; 81000; 82150; 82728; 83690 ×2; 83735 ×2; 84145; 84703; 85007; 85025 ×7; 85027; 85379; 85652; 86141 ×2; 87015; 87045; 87046; 87081; 87636; 87899; 93970; 96374; 96375; 96376; 99282; G0378; 36415

== ENCOUNTER 2020-09-15 13:43 | Emergency (ER) | payer MEDICAID ==
[~2020-09-15] VITALS: Ht 149.8 cm; Wt 64.2 kg
[~2020-09-15 13:43] MED LIST changes: +AMOX1TAB12 PO; +DICY10CA12 PO; +IBUP-2473 PO; +ONDA-105 PO; +OXYC1TAB12 PO; +PANT40TA2 PO; +PANT40TA52 PO; +PSYL3.4P5 PO; +SUCR1TAB36 PO
[2020-09-15] MEDS ORDERED: NS IV 1000 ML 1,000 ML IV STA (14:18)
[2020-09-15] MEDS ORDERED: cefTRIAXone 1,000 MG in WATER (STERILE) FOR INJECTION 10 ML IV STA (14:18)
[2020-09-15] MEDS ORDERED: KETOROLAC 30 MG/ML VIAL IVP STA (14:18)
--- NOTE | 2020-09-15 14:30 | ED EENT ---
History of Present Illness General Chief Complaint: Dental Problems/Pain Stated Complaint: DENTAL PAIN Source: patient History of Present Illness Date Seen by Provider: Sep 15, 2020 Time Seen by Provider: 13:46 Initial Comments 29 yo female presenting with complaint of pain in left face, jaw, neck that has been worsening since last week when she saw dentist and had an abscess opened on upper posterior aspect of her mouth on left side. She had a tooth pulled in the area about 6 to 8 weeks ago. When she was seen last week the provider told her that there was an abscess and they cut it open. They then applied stitches to close the area. She took a course of antibiotics as a Z-Tacos as well as taking Magic mouthwash and Tylenol ibuprofen for pain. However she has been having increasing pain and feeling she is getting swelling to the left side of her jaw and face. She feels like there is some pain when she swallows. She denies fever or chills. She had sepsis earlier this spring and wanted to try and avoid that recurring. So she came in to be seen and evaluated to see if she needed different antibiotics or if the abscess was worsening or what needed to happen. Timing/Duration: gradual Severity: moderate Location: facial, dental Prearrival Treatment: over the counter meds Associated Symptoms: No change in hearing, No cough, No drooling, No ear drainage; facial pain/swelling (Left side); No fever, No malaise, No nasal congestion/drainage, No poor fluid intake, No poor solids intake, No sinus infection, No sore throat, No voice change Allergies and Home Medications Allergies Coded Allergies: clindamycin (Verified Allergy, Intermediate, oral blisters, SOB, 07/29/20) cinnamon (Verified Allergy, Unknown, 07/29/20) Home Medications Amoxicillin/Potassium Clav 1 Each Tablet, 1 EACH PO BID Prescribed by: IRINEO THORPE on 09/15/20 1506 Hydrocodone/Acetaminophen 1 Each Tablet, 1 TAB PO Q4H PRN for PAIN-SEVERE (8-10) Prescribed by: IRINEO THORPE on 09/15/20 1507 Ibuprofen 200 Mg Tablet, 400-600 MG PO Q8H PRN for PAIN-MILD (1-4), (Reported) Pantoprazole Sodium 40 Mg Tablet.dr, 40 MG PO DAILY, (Reported) Polyethylene Glycol 3350 17 Gm Powd.pack, 17 GM PO BID Prescribed by: TISHA FLORENTINO on 08/05/20 1228 Psyllium Husk/Aspartame 3.4 Gm Powd.pack, 1 PACKET PO DAILY, (Reported) Patient Home Medication List Home Medication List Reviewed: Yes Review of Systems Review of Systems Constitutional: No chills, No fever; malaise Eyes: No Symptoms Reported Ears: No Symptoms Reported Nose: no symptoms reported Mouth: see HPI, pain (Left upper posterior mouth where abscess was opened); denies bloody discharge, denies clear discharge, denies purulent discharge, denies serosanguinous discharge Throat: pain (Left anterior neck and throat area) Respiratory: No short of breath, No stridor, No wheezing Cardiovascular: no symptoms reported Gastrointestinal: no symptoms reported Musculoskeletal: no symptoms reported Skin: no symptoms reported Neurological: Headache (Left-sided) Past Kkyfddm-U[place]hg-[place] Hx Patient Social History Tobacco Use?: No Smoking Status: Never a Smoker Smokeless Tobacco Frequency: Never a User Use of E-Cig and/or Vaping dev: No Substance use?: No Alcohol Use?: No Pt feels they are or have been: No Immunizations Up To Date Tetanus Booster (TDap): More than 5yrs PED Vaccines UTD: Yes Seasonal Allergies Seasonal Allergies: No Past Medical History Surgery/Hospitalization HX: dental extraction recently and post procedure abscess treated with Zpac Surgeries: Yes (Umbilical herniorrhaphy 07/04/12,D&C, ENDOMETRIOSIS SCRAPING, d&c, Mesh Tommy) Abdominal, Adenoidectomy, Appendectomy, Bowel Surgery, Gallbladder, Tonsillectomy, Tubal Ligation Respiratory: No Cardiac: No Neurological: No (only if pt takes tramadol. last seizere 04/2011) Reproductive Disorders: Yes (CPP) Female Reproductive Disorders: Endometriosis, Ovarian Cyst Sexually Transmitted Disease: No HIV/AIDS: No Genitourinary: Yes Kidney Infection, UTI-Chronic Gastrointestinal: Yes (umbilical hernia removed 11/25/18) Abdominal Hernia, Gall Bladder Disease Musculoskeletal: No Chronic Back Pain Endocrine: No HEENT: No Cancer: No Psychosocial: Yes Anxiety, Depression Integumentary: No Blood Disorders: No Adverse Reaction/Blood Tranf: No Family Medical History Patient reports no known family medical history. No Pertinent Family Hx Physical Exam Vital Signs Vital Signs - First Documented 09/15/20 13:50 Temp 36.6 Pulse 85 Resp 20 B/P (MAP) 119/77 (91) Pulse Ox 100 O2 Delivery Room Air Height, Weight, BMI Height: 4'10.00" Weight: 125lbs. 0oz. [id number]; 2.71 BMI Method:Stated General Appearance: WD/WN, no apparent distress Eyes: bilateral eye PERRL, bilateral eye EOMI Ears: bilateral ear auricle normal, bilateral ear canal normal, bilateral ear TM normal Mouth/Throat: pharynx normal, dental tenderness (Left upper posterior maxillary area. Stitches in place. No definite abscess seen. 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, no motor/sensory deficits, alert, oriented x 3 Skin: normal color, warm/dry Progress/Results/Core Measures Results/Orders Lab Results Laboratory Tests Test 09/15/20 14:25 Range/Units White Blood Count 6.7 4.3-11.0 10^3/uL Red Blood Count 4.15 L 4.35-5.85 10^6/uL Hemoglobin 11.5 11.5-16.0 G/DL Hematocrit 37 35-52 % Mean Corpuscular Volume 88 80-99 FL Mean Corpuscular Hemoglobin 28 25-34 PG Mean Corpuscular Hemoglobin Concent 31 L 32-36 G/DL Red Cell Distribution Width 13.8 10.0-14.5 % Platelet Count 353 130-400 10^3/uL Mean Platelet Volume 10.4 7.4-10.4 FL Immature Granulocyte % (Auto) 0 % Neutrophils (%) (Auto) 64 42-75 % Lymphocytes (%) (Auto) 28 12-44 % Monocytes (%) (Auto) 6 0-12 % Eosinophils (%) (Auto) 2 0-10 % Basophils (%) (Auto) 1 0-10 % Neutrophils # (Auto) 4.3 1.8-7.8 X 10^3 Lymphocytes # (Auto) 1.8 1.0-4.0 X 10^3 Monocytes # (Auto) 0.4 0.0-1.0 X 10^3 Eosinophils # (Auto) 0.1 0.0-0.3 10^3/uL Basophils # (Auto) 0.1 0.0-0.1 10^3/uL Immature Granulocyte # (Auto) 0.0 0.0-0.1 10^3/uL Sodium Level 140 135-145 MMOL/L Potassium Level 3.9 3.6-5.0 MMOL/L Chloride Level 107 98-107 MMOL/L Carbon Dioxide Level 24 21-32 MMOL/L Anion Gap 9 5-14 MMOL/L Blood Urea Nitrogen 6 L 7-18 MG/DL Creatinine 0.63 0.60-1.30 MG/DL Estimat Glomerular Filtration Rate > 60 BUN/Creatinine Ratio 10 Glucose Level 79 70-105 MG/DL Calcium Level 9.0 8.5-10.1 MG/DL Corrected Calcium 8.8 8.5-10.1 MG/DL Total Bilirubin < 0.2 0.1-1.0 MG/DL Aspartate Amino Transf (AST/SGOT) 12 5-34 U/L Alanine Aminotransferase (ALT/SGPT) 12 0-55 U/L Alkaline Phosphatase 68 40-136 U/L C-Reactive Protein 2.02 H <0.50 MG/DL Total Protein 6.9 6.4-8.2 GM/DL Albumin 4.3 3.2-4.5 GM/DL My Orders Orders - IRINEO THORPE MD Cbc With Automated Diff (09/15/20 14:18) Comprehensive Metabolic Panel (09/15/20 14:18) Ed Iv/Invasive Line Start (09/15/20 14:18) Crp Fs (09/15/20 14:18) Urine Bedside (09/15/20 14:18) Ct Neck (Soft Tissue) W (09/15/20 14:18) Ns Iv 1000 Ml (Sodium Chloride 0.9%) (09/15/20 14:18) Ceftriaxone (Rocephin) (09/15/20 14:18) Ketorolac Injection (Toradol Injection) (09/15/20 14:18) Iohexol Injection (Omnipaque 350 Mg/Ml 1 (09/15/20 14:45) Received Contrast (Hold Metformin- Contr (09/15/20 14:45) Sodium Chloride Flush (Catheter Flush Sy (09/15/20 14:45) Ns (Ivpb) (Sodium Chloride 0.9% Ivpb Bag (09/15/20 14:45) Medications Given in ED Current Medications Medications Dose Ordered Sig/Damion Route Start Time Stop Time Status Last Admin Dose Admin Iohexol 75 ml ONCE ONCE IV 09/15/20 14:45 09/15/20 14:46 DC 09/15/20 14:39 75 ML Sodium Chloride 10 ml NEEDED PRN IV 09/15/20 14:45 09/15/20 15:35 DC 09/15/20 14:39 10 ML Sodium Chloride 100 ml ONCE ONCE IV 09/15/20 14:45 09/15/20 14:46 DC 09/15/20 14:39 80 ML Vital Signs/I&O 09/15/20 09/15/20 09/15/20 13:50 14:31 15:34 Temp 36.6 36.6 36.6 Pulse 85 85 Resp 20 20 B/P (MAP) 119/77 (91) 119/77 (91) Pulse Ox 100 100 O2 Delivery Room Air Progress Progress Note #1: Progress Note Obtain CT scan through the neck soft tissues to evaluate for abscess. Give IV fluid for hydration, Rocephin for infection, Toradol for pain and swelling. Check basic labs and CRP. Progress Note #2: Progress Note Labs stable and do not show elevated WBC for sepsis. Heart rate and vital signs also stable and not consistent with SIRS or Sepsis. She does have elevated CRP. Feeling better after treatment. CT shows signs of sinusitis but no abscess or fluid collection. Counseled patient on results and advised about follow-up and return precautions. Will do a course of Augmentin for the sinusitis and follow-up with the dentist in clinic. Prescribed a few hydrocodone for severe pain. Diagnostic Imaging Diagonstic Imaging: CT Plain Films/CT/US/NM/MRI: other (Soft tissue neck and sinus) Comments [facility]. [place], [place] NAME: DEQUAN ESCOBEDOMACK Perez MED REC#: [id number] PT STATUS: REG ER : 1990 PHYSICIAN: IRINEO THORPE MD ADMIT DATE: 09/15/20/ER FS Signed Date of Exam:09/15/20 CT NECK (SOFT TISSUE) W PROCEDURE: CT neck soft tissue with contrast. TECHNIQUE: Multiple contiguous axial images were obtained through the neck after the administration of contrast. Auto Exposure Controls were utilized during the CT exam to meet ALARA standards for radiation dose reduction. INDICATION: Left-sided mouth and neck pain. Recent tooth extraction. COMPARISON: None. FINDINGS: Findings of tooth extraction are visualized involving the left 2nd maxillary molar. There is mucosal thickening and retained secretions in the left maxillary sinus with dense material present in the left maxillary sinus. Small mucous retention cyst is seen in the right maxillary sinus. The posterior nasopharynx and oropharynx demonstrate appropriate symmetry. There is no displacement of the parapharyngeal fat planes. There is no abnormal process evident within the prevertebral or retropharyngeal space. There is no evidence of abnormal thickening of the epiglottis or aryepiglottic folds. The vocal folds appear symmetric. The parotid, submandibular and thyroid gland are unremarkable. No pathologically enlarged cervical lymph nodes are evident. No soft tissue mass or fluid collection demonstrated. The vascular structures the neck demonstrate no evidence of high-grade stenosis on this nondedicated exam. The visualized lung apices are clear. The visualized intracranial contents demonstrate no evidence of pathologic intracranial enhancement or intracranial mass effect. Visualized orbital contents are unremarkable. The mastoids and middle ears are clear. No acute osseous abnormality in the cervical spine. IMPRESSION: 1. Findings consistent with tooth extraction involving the left 2nd maxillary molar. There is mucosal thickening and dense secretions in the left maxillary sinus which may relate to the tooth extraction and could represent left maxillary sinusitis. No evidence of associated soft tissue abscess. 2. Unremarkable aerodigestive tract. No evidence of airway compromise. Dictated by: Dictated on workstation # [id number] Dict: 09/15/20 1503 Trans: 09/15/20 1521 [facility] [id number] Interpreted by: MAIRETTA REESE DO Electronically signed by: MARIETTA REESE DO 09/15/20 1521 Reviewed: Reviewed by Me Departure Impression Primary Impression: Left maxillary sinusitis Additional Impression: Dental infection Disposition: 01 HOME, SELF-CARE Condition: Stable Departure-Patient Inst. Decision time for Depature: 15:24 Referrals: LUIS QUEZADA APRN (PCP) Primary Care Physician [facility] (Family) Primary Care Physician Patient Instructions: Tooth Decay, Adult (DC), Dental Pain (DC), Sinusitis, Adult ED Add. Discharge Instructions: Take antibiotics for infection related to tooth and recent abscess. Use Hydrocodone for severe pain. Use Probiotics or eat Yogurt with active cultures to help with keeping your bowels regular while taking antibiotics and pain medicine. All discharge instructions reviewed with patient and/or family. Voiced understanding. Scripts Hydrocodone/Acetaminophen (Hydrocodone-Acetamin 5-325 mg) 1 Each Tablet 1 TAB PO Q4H PRN for PAIN-SEVERE (8-10) for 3 Days, #18 TAB 0 Refills Prov: IRINEO THORPE MD 09/15/20 Amoxicillin/Potassium Clav (Amox Tr-K Clv 875-125 mg Tab) 1 Each Tablet 1 EACH PO BID for dental infection for 10 Days, #20 TAB 0 Refills Prov: IRINEO THORPE MD 09/15/20 Images Head/Face 1 - Swelling, Tenderness (Tender to palpation on the left side of her face and jaw. Mild swelling along the jaw) IRINEO THORPE MD Sep 15, 2020 14:29
[2020-09-15] MEDS ORDERED: PROM25TA14 (14:43)
[2020-09-15] MEDS ORDERED: TRZ50T (14:43)
[2020-09-15] MEDS ORDERED: CLON1TAB13 (14:43)
[2020-09-15] MEDS ORDERED: HOLD METFORMIN - RECEIVED CONTRAST 20 ML VIAL IV SCH (14:45)
[2020-09-15] MEDS ORDERED: IOHEXOL 350 MG/ML 100 ML (OMNIPAQUE 350) VIAL IV ONE (14:45)
[2020-09-15] MEDS ORDERED: NS 100 ML (IVPB) BAG IV ONE (14:45)
[2020-09-15] MEDS ORDERED: CATHETER FLUSH 10 ML SYR IV PRN (14:45)
[2020-09-15 14:46] LABS: BASOPHILS % (AUTO) 1 % (0-10); EOSINOPHILS % (AUTO) 2 % (0-10); HEMATOCRIT 37 % (35-52); HEMOGLOBIN 11.5 G/DL (11.5-16.0); LYMPHOCYTES % (AUTO) 28 % (12-44); MEAN CORPUSCULAR HEMOGLOBIN 28 PG (25-34); MEAN CORPUSCULAR HGB CONC 31 G/DL (32-36); MEAN CORPUSCULAR VOLUME 88 FL (80-99); MEAN PLATELET VOLUME 10.4 FL (7.4-10.4); MONOCYTES % (AUTO) 6 % (0-12); NEUTROPHILS % (AUTO) 64 % (42-75); PLATELET COUNT 353 10^3/uL (130-400); WHITE BLOOD COUNT 6.7 10^3/uL (4.3-11.0)
[2020-09-15 14:47] LABS: BASOPHILS # (AUTO) 0.1 10^3/uL (0.0-0.1); EOSINOPHILS # (AUTO) 0.1 10^3/uL (0.0-0.3); LYMPHOCYTES # (AUTO) 1.8 X 10^3 (1.0-4.0); MONOCYTES # (AUTO) 0.4 X 10^3 (0.0-1.0); NEUTROPHILS # (AUTO) 4.3 X 10^3 (1.8-7.8)
[2020-09-15 15:01] LABS: ALANINE AMINOTRANSFERASE 12 U/L (0-55); ALBUMIN 4.3 GM/DL (3.2-4.5); ALKALINE PHOSPHATASE 68 U/L (40-136); BILIRUBIN,TOTAL < 0.2 MG/DL (0.1-1.0); BUN/CREATININE RATIO 10; CARBON DIOXIDE 24 MMOL/L (21-32); CHLORIDE 107 MMOL/L (98-107); CREATININE SERUM 0.63 MG/DL (0.60-1.30); GFR ESTIMATED > 60; GLUCOSE 79 MG/DL (70-105); POTASSIUM 3.9 MMOL/L (3.6-5.0); SODIUM 140 MMOL/L (135-145); TOTAL PROTEIN 6.9 GM/DL (6.4-8.2)
[2020-09-15] MEDS ORDERED: ACHD5005 PO (15:06)
[2020-09-15] MEDS ORDERED: AMOX1TAB12 PO (15:06)
--- NOTE | 2020-09-15 15:20 | Diagnostic Imaging Report ---
PROCEDURE: CT neck soft tissue with contrast. TECHNIQUE: Multiple contiguous axial images were obtained through the neck after the administration of contrast. Auto Exposure Controls were utilized during the CT exam to meet ALARA standards for radiation dose reduction. INDICATION: Left-sided mouth and neck pain. Recent tooth extraction. COMPARISON: None. FINDINGS: Findings of tooth extraction are visualized involving the left 2nd maxillary molar. There is mucosal thickening and retained secretions in the left maxillary sinus with dense material present in the left maxillary sinus. Small mucous retention cyst is seen in the right maxillary sinus. The posterior nasopharynx and oropharynx demonstrate appropriate symmetry. There is no displacement of the parapharyngeal fat planes. There is no abnormal process evident within the prevertebral or retropharyngeal space. There is no evidence of abnormal thickening of the epiglottis or aryepiglottic folds. The vocal folds appear symmetric. The parotid, submandibular and thyroid gland are unremarkable. No pathologically enlarged cervical lymph nodes are evident. No soft tissue mass or fluid collection demonstrated. The vascular structures the neck demonstrate no evidence of high-grade stenosis on this nondedicated exam. The visualized lung apices are clear. The visualized intracranial contents demonstrate no evidence of pathologic intracranial enhancement or intracranial mass effect. Visualized orbital contents are unremarkable. The mastoids and middle ears are clear. No acute osseous abnormality in the cervical spine. IMPRESSION: 1. Findings consistent with tooth extraction involving the left 2nd maxillary molar. There is mucosal thickening and dense secretions in the left maxillary sinus which may relate to the tooth extraction and could represent left maxillary sinusitis. No evidence of associated soft tissue abscess. 2. Unremarkable aerodigestive tract. No evidence of airway compromise. Dictated by: Dictated on workstation # [id number]
[2020-09-15 15:34] VITALS: BP 119/77
== END 2020-09-15 15:34 | disposition home or self-care (01) ==
LOC: EDUNIT# 13:43 → ER FS 13:45
DX: J32.0 Chronic maxillary sinusitis (principal); K04.7 Periapical abscess without sinus; G89.29 Other chronic pain; M54.9 Dorsalgia, unspecified; Z79.891 Long term (current) use of opiate analgesic
CPT/HCPCS: 36415; 70491; 80053; 84703; 85025; 86141; 96374; 96375

== ENCOUNTER 2020-09-20 16:29 | Emergency (ER) | payer MEDICAID ==
[~2020-09-20] VITALS: Ht 149.8 cm; Wt 63.4 kg
[~2020-09-20 16:29] MED LIST changes: +CLON1TAB13; +PROM25TA14; +TRZ50T
[2020-09-20] MEDS ORDERED: NS IV 1000 ML 1,000 ML IV STA ×2 (16:54→20:08)
[2020-09-20] MEDS ORDERED: ONDANSETRON 4 MG/2 ML (SDV) Z0FRAN IVP STA ×2 (16:54→20:09)
[2020-09-20] MEDS ORDERED: KETOROLAC 30 MG/ML VIAL IVP STA (17:06)
--- NOTE | 2020-09-20 17:09 | ED GI ---
General Chief Complaint: Abdominal/GI Problems Stated Complaint: VOMITING | DIARRHEA | LOSS OF APPETITE | FEVER Nursing Triage Note: Patient reports lower abdominal and back pain, diarrhea x 4 days, and vomiting today. She states she has a history of IBS and saw her grad intern last month. Source of Information: Patient History of Present Illness Date Seen by Provider: Sep 20, 2020 Time Seen by Provider: 16:33 Initial Comments 29 yo female presenting with complaint of over 4 days of abdominal cramping pain with n/v/d. She denies eating anything different that would have triggered the symptoms. She has recently been on Augmentin for sinus infection. She denies having any fever, chills, blood in her urine, blood in her stool, blood in her vomit. She reports following with a GI doctor out of [facility] and that she sent a request by email to them about her symptoms to get a reply about what to do next. However they have not responded over the holiday weekend. She denies feeling dizzy or lightheaded with standing. She states she has decreased hearing protection due to not keeping much down. She feels like the pain is worse on the left side of her abdomen similar to when she had to be admitted in Jul, 2020 Timing/Duration: 4-5 Days Severity/Quality: Cramping, Sharp Location: Generalized Abdomen (but worse on left side) Activities at Onset: None Modifying Factors: Worsens With Movement, Worsens With Palpation Associated Symptoms: No Back Pain, No Chest Pain, No Diaphoresis, No Fever/Chills, No Fatigue, No Headache, No Heartburn; Nausea/Vomiting; No Rash, No Shortness of Air, No Swelling/Mass in Abdomen, No Syncope, No Weakness Allergies and Home Medications Allergies Coded Allergies: clindamycin (Verified Allergy, Intermediate, oral blisters, SOB, 07/29/20) cinnamon (Verified Allergy, Unknown, 07/29/20) Home Medications Ciprofloxacin HCl 500 Mg Tablet, 500 MG PO BID Prescribed by: IRINEO THORPE on 09/20/202254 Dicyclomine HCl 20 Mg Tablet, 20 MG PO QID PRN for abdominal pain/cramping Prescribed by: IRINEO THORPE on 09/20/20 2254 Hydrocodone/Acetaminophen 1 Each Tablet, 1 TAB PO Q4H PRN for PAIN-SEVERE (8-10) Prescribed by: IRINEO THORPE on 09/15/20 1507 Hydrocodone/Acetaminophen 1 Each Tablet, 1 EACH PO Q6H PRN for PAIN-SEVERE (8- 10) Prescribed by: IRINEO TYSONRT on 09/20/202254 Ibuprofen 200 Mg Tablet, 400-600 MG PO Q8H PRN for PAIN-MILD (1-4), (Reported) Metronidazole 500 Mg Tablet, 500 MG PO BID Prescribed by: IRINEO TYSONRT on 09/20/202254 Pantoprazole Sodium 40 Mg Tablet.dr, 40 MG PO DAILY, (Reported) Polyethylene Glycol 3350 17 Gm Powd.pack, 17 GM PO BID Prescribed by: TISHA FLORENTINO on 08/05/20 1228 Promethazine HCl 25 Mg Tablet, 25 MG PO Q8H PRN for NAUSEA/VOMITING Prescribed by: IRINEO TYSONRT on 09/20/202254 Psyllium Husk/Aspartame 3.4 Gm Powd.pack, 1 PACKET PO DAILY, (Reported) Patient Home Medication List Home Medication List Reviewed: Yes Review of Systems Review of Systems Constitutional: No chills, No fever EENTM: No Symptoms Reported Respiratory: No Symptoms Reported Cardiovascular: No Symptoms Reported Gastrointestinal: See HPI Genitourinary: No Symptoms Reported; Denies Burning Musculoskeletal: no symptoms reported Skin: no symptoms reported Psychiatric/Neurological: Anxiety Past Seloggo-Phjeza-Dizspm Hx Patient Social History Tobacco Use?: No Use of E-Cig and/or Vaping dev: Yes E-Cig or Vaping type used: Nicotine Substance use?: No Alcohol Use?: No Pt feels they are or have been: No Immunizations Up To Date Tetanus Booster (TDap): More than 5yrs PED Vaccines UTD: Yes Seasonal Allergies Seasonal Allergies: No Past Medical History Surgeries: Yes (Umbilical herniorrhaphy 07/04/12,D&C, ENDOMETRIOSIS SCRAPING, d&c, Mesh Tommy) Abdominal, Adenoidectomy, Appendectomy, Bowel Surgery, Gallbladder, Tonsillectomy, Tubal Ligation Respiratory: No Cardiac: No Neurological: No (only if pt takes tramadol. last seizere 04/2011) Reproductive Disorders: Yes (CPP) Female Reproductive Disorders: Endometriosis, Ovarian Cyst Sexually Transmitted Disease: No HIV/AIDS: No Genitourinary: Yes Kidney Infection, UTI-Chronic Gastrointestinal: Yes (umbilical hernia removed 11/25/18) Abdominal Hernia, Gall Bladder Disease Musculoskeletal: No Chronic Back Pain Endocrine: No HEENT: No Cancer: No Psychosocial: Yes Anxiety, Depression Integumentary: No Blood Disorders: No Adverse Reaction/Blood Tranf: No Family Medical History Patient reports no known family medical history. No Pertinent Family Hx Physical Exam Vital Signs Vital Signs - First Documented 09/20/20 16:30 Temp 36.5 Pulse 101 Resp 20 B/P (MAP) 103/78 (86) Pulse Ox 97 O2 Delivery Room Air Capillary Refill : Less Than 3 Seconds Height/Weight/BMI Height: 4'10.00" Weight: 125lbs. 0oz. [id number]; 28.00 BMI Method:Stated General Appearance: WD/WN, mild distress HEENT: PERRL/EOMI, pharynx normal Neck: non-tender, full range of motion, supple, normal inspection Respiratory: chest non-tender, lungs clear, normal breath sounds, no respiratory distress, no accessory muscle use Cardiovascular: normal peripheral pulses, regular rate, rhythm Gastrointestinal: normal bowel sounds, soft, no pulsatile mass; No distended, No guarding, No rebound; tenderness (diffuse mild tenderness to palpation but pt reports pain is the worst with palpation over the left side of abdomen) Rectal: deferred Back: no CVA tenderness Neurologic/Psychiatric: access nurse II-XII nml as tested, alert, oriented x 3 Skin: normal color, warm/dry Images 1 - diffuse abdominal pain but reports pain is worse on left side of abdomen Progress/Results/Core Measures Results/Orders Lab Results Laboratory Tests Test 09/20/20 16:35 09/20/20 22:34 Range/Units White Blood Count 12.6 H 4.3-11.0 10^3/uL Red Blood Count 4.96 4.35-5.85 10^6/uL Hemoglobin 13.5 11.5-16.0 G/DL Hematocrit 42 35-52 % Mean Corpuscular Volume 85 80-99 FL Mean Corpuscular Hemoglobin 27 25-34 PG Mean Corpuscular Hemoglobin Concent 32 32-36 G/DL Red Cell Distribution Width 13.5 10.0-14.5 % Platelet Count 477 H 130-400 10^3/uL Mean Platelet Volume 10.0 7.4-10.4 FL Immature Granulocyte % (Auto) 0 % Neutrophils (%) (Auto) 86 H 42-75 % Lymphocytes (%) (Auto) 9 L 12-44 % Monocytes (%) (Auto) 4 0-12 % Eosinophils (%) (Auto) 0 0-10 % Basophils (%) (Auto) 0 0-10 % Neutrophils # (Auto) 10.9 H 1.8-7.8 X 10^3 Lymphocytes # (Auto) 1.1 1.0-4.0 X 10^3 Monocytes # (Auto) 0.6 0.0-1.0 X 10^3 Eosinophils # (Auto) 0.0 0.0-0.3 10^3/uL Basophils # (Auto) 0.1 0.0-0.1 10^3/uL Immature Granulocyte # (Auto) 0.0 0.0-0.1 10^3/uL Neutrophils % (Manual) 89 % Lymphocytes % (Manual) 6 % Monocytes % (Manual) 3 % Eosinophils % (Manual) 1 % Basophils % (Manual) 1 % Platelet Estimate INCREASED Blood Morphology Comment NORMAL Sodium Level 139 135-145 MMOL/L Potassium Level 4.1 3.6-5.0 MMOL/L Chloride Level 105 98-107 MMOL/L Carbon Dioxide Level 20 L 21-32 MMOL/L Anion Gap 14 5-14 MMOL/L Blood Urea Nitrogen 15 7-18 MG/DL Creatinine 0.68 0.60-1.30 MG/DL Estimat Glomerular Filtration Rate > 60 BUN/Creatinine Ratio 22 Glucose Level 96 70-105 MG/DL Calcium Level 9.5 8.5-10.1 MG/DL Corrected Calcium 8.5-10.1 MG/DL Total Bilirubin 0.4 0.1-1.0 MG/DL Aspartate Amino Transf (AST/SGOT) 13 5-34 U/L Alanine Aminotransferase (ALT/SGPT) 11 0-55 U/L Alkaline Phosphatase 70 40-136 U/L Total Protein 7.9 6.4-8.2 GM/DL Albumin 4.7 H 3.2-4.5 GM/DL Lipase 24 8-78 U/L Serum Test, Qualitative NEGATIVE NEGATIVE Urine Color YELLOW Urine Clarity CLEAR Urine pH 5.0 5-9 Urine Specific [place] 1.010 L 1.016-1.022 Urine Protein NEGATIVE NEGATIVE Urine Glucose (UA) NEGATIVE NEGATIVE Urine Ketones NEGATIVE NEGATIVE Urine Nitrite NEGATIVE NEGATIVE Urine Bilirubin NEGATIVE NEGATIVE Urine Urobilinogen 0.2 < = 1.0 MG/DL Urine Leukocyte Esterase NEGATIVE NEGATIVE Urine RBC (Auto) NEGATIVE NEGATIVE Urine RBC NONE /HPF Urine WBC RARE /HPF Urine Squamous Epithelial Cells 5-10 /HPF Urine Crystals NONE /LPF Urine Bacteria NEGATIVE /HPF Urine Casts NONE /LPF Urine Mucus NEGATIVE /LPF Urine Culture Indicated NO My Orders Orders - IRINEO THORPE MD Comprehensive Metabolic Panel (09/20/20 16:54) Lipase (09/20/20 16:54) Ua Culture If Indicated (09/20/20 16:54) Ed Iv/Invasive Line Start (09/20/20 16:54) Cbc With Automated Diff (09/20/20 16:54) Ns Iv 1000 Ml (Sodium Chloride 0.9%) (09/20/20 16:54) Ondansetron Injection (Zofran Injectio (09/20/20 16:54) Hcg,Qualitative Serum (09/20/20 17:06) Ct Abdomen/Pelvis W (09/20/20 17:06) Ketorolac Injection (Toradol Injection) (09/20/20 17:06) Iohexol Injection (Omnipaque 350 Mg/Ml 1 (09/20/20 17:15) Received Contrast (Hold Metformin- Contr (09/20/20 17:15) Sodium Chloride Flush (Catheter Flush Sy (09/20/20 17:15) Ns (Ivpb) (Sodium Chloride 0.9% Ivpb Bag (09/20/20 17:15) Manual Differential (09/20/20 16:35) Promethazine Injection (Phenergan Injec (09/20/20 17:49) Ns Iv 1000 Ml (Sodium Chloride 0.9%) (09/20/20 20:08) Hydromorphone Injection (Dilaudid Inject (09/20/20 20:09) Pantoprazole Injection (Protonix Injecti (09/20/20 20:09) Ondansetron Injection (Zofran Injectio (09/20/20 20:09) Ciprofloxacin Tablet (Cipro Tablet) (09/20/20 22:37) Metronidazole Tablet (Flagyl Tablet) (09/20/20 22:37) Dicyclomine Injection (Bentyl Injection) (09/20/20 22:37) Rx-Hydrocodone/Apap 5-325 Mg (Rx-Vicodin (09/20/20 23:00) Medications Given in ED Current Medications Medications Dose Ordered Sig/Damion Route Start Time Stop Time Status Last Admin Dose Admin Acetaminophen/ Hydrocodone Bitart 1 ea Q4H PRN PO 09/20/20 23:00 09/20/20 23:14 DC 09/20/20 23:01 1 EA Iohexol 100 ml ONCE ONCE IV 09/20/20 17:15 09/20/20 17:16 DC 09/20/20 17:22 100 ML Sodium Chloride 10 ml NEEDED PRN IV 09/20/20 17:15 09/20/20 23:14 DC 09/20/20 17:22 10 ML Sodium Chloride 100 ml ONCE ONCE IV 09/20/20 17:15 09/20/20 17:16 DC 09/20/20 17:22 80 ML Vital Signs/I&O 09/20/20 09/20/20 16:30 23:09 Temp 36.5 Pulse 101 54 Resp 20 18 B/P (MAP) 103/78 (86) 127/76 Pulse Ox 97 98 O2 Delivery Room Air Room Air 09/21/20 00:00 Intake Total 2000 ml Balance 2000 ml Blood Pressure Mean: 86 Progress Progress Note #1: Progress Note Order urinalysis along with basic labs and urine . Differential diagnosis includes recurrent colitis, gastroenteritis, diverticulitis, UTI, pyelonephritis, abdominal wall strain Progress Note #2: Progress Note Labs appear stable with mild elevation of her white blood cell count to 12.6. Her electrolytes do not show any acute significant abnormality to account for her pain. Her CT scan does not show any acute significant abnormality to account for her pain on the left side. She has mild findings for colitis on the right side. This is around her cecum. She has no evidence of obstruction, free air, fluid collection indicating abscess. Patient appears to be in no distress but continues to claim that she has severe pain and requires additional pain medicine and nausea medicine. She has had no vomiting or diarrhea here in the emergency department over several hours. Advised that additional medication as well as fluids will be given and if she was still having uncontrolled pain could contact the hospitalist about admission. The pain continued and patient continued to ask for medication to help with her symptoms so case was discussed with Dr. Mir. As the patient has no intractable vomiting and no significant abnormality on her labs will try changing her antibiotic from Augmentin to Cipro and Flagyl. Treat for her pain. Follow-up through the clinic for continued symptoms. Diagnostic Imaging Diagonstic Imaging: CT Plain Films/CT/US/NM/MRI: abdomen, pelvis Comments NAME: CAM ESCOBEDO [facility] REC#: [id number] PT STATUS: REG ER : 1990 PHYSICIAN: IRINEO THORPE MD ADMIT DATE: 09/20/20/ER FS Draft Date of Exam:09/20/20 CT ABDOMEN/PELVIS W PROCEDURE: CT abdomen and pelvis with contrast, 09/20/2020. TECHNIQUE: Multiple contiguous axial images were obtained through the abdomen and pelvis after administration of intravenous contrast. Auto Exposure Controls were utilized during the CT exam to meet ALARA standards for radiation dose reduction. All CT scans use one or more of the following dose optimizing techniques: automated exposure control, MA and/or KvP adjustment based on patient size and exam type or iterative reconstruction. INDICATION: Nausea, vomiting and diarrhea with generalized abdominal pain. COMPARISON: 07/29/2020 FINDINGS: The visualized lung bases appear clear. The spleen is unremarkable. There is a focal low density area within the anterior border of the right lobe of the liver consistent with focal fatty change. This could be followed to assure stability. There is a nonspecific low density along the posterior border of the right lobe of the liver which is nonspecific and should be followed, as well. The gallbladder is not seen, possibly due to a cholecystectomy, correlate with history. Otherwise it could be contracted. The pancreas and adrenal glands normal. Kidneys unremarkable. There is postoperative change within the right lower quadrant. There are postoperative findings in the anterior pelvis. Minimal free fluid in the pelvis, likely physiologic. There is fluid within the cecum possibly due to focal colitis. The lung bases appear clear. There is no free air. IMPRESSION: 1. Fluid within the cecum nonspecific, perhaps due to a focal colitis. Correlate with symptoms. 2. Follow-up of the findings within the liver recommended. 3. Otherwise, chronic findings, as above. Dictated on workstation # [id number] Dict: 09/20/20 1739 Trans: 09/20/20 1803 [facility] [id number] Interpreted by: CHELSEY TEMPLE MD Electronically signed by: Reviewed: Reviewed by Me Departure Impression Primary Impression: Colitis Additional Impressions: Abdominal cramping Diarrhea Qualified Codes: R19.7 - Diarrhea, unspecified Nausea & vomiting Qualified Codes: R11.14 - Bilious vomiting Disposition: 01 HOME, SELF-CARE Condition: Stable Departure-Patient Inst. Decision time for Depature: 22:56 Referrals: LUIS QUEZADA APRN (PCP) Primary Care Physician [facility] (Family) Primary Care Physician Patient Instructions: Abdominal Pain, Adult ED, Colitis (DC), Diarrhea, Adult ED, Nausea and Vomiting, Adult ED Add. Discharge Instructions: Take antibiotics and continue medicine for nausea and pain. Drink plenty of water and keep sipping on fluids to help stay hydrated Follow up with ENRIQUETA Quezada today or Sunday about your symptoms. Call your GI provider at [facility] to see if they want you to do any different medications for your symptoms All discharge instructions reviewed with patient and/or family. Voiced understanding. Scripts Dicyclomine HCl (Dicyclomine HCl) 20 Mg Tablet 20 MG PO QID PRN for abdominal pain/cramping for 7 Days, #28 TAB 0 Refills Prov: IRINEO THORPE MD 09/20/20 Promethazine HCl (Promethazine Tablet) 25 Mg Tablet 25 MG PO Q8H PRN for NAUSEA/VOMITING for 5 Days, #14 TAB 0 Refills Prov: IRINEO THORPE MD 09/20/20 Hydrocodone/Acetaminophen (Hydrocodone-Acetamin 10-325 mg) 1 Each Tablet 1 EACH PO Q6H PRN for PAIN-SEVERE (8-10) for 3 Days, #12 TAB 0 Refills Prov: IRINEO THORPE MD 09/20/20 Metronidazole (Metronidazole) 500 Mg Tablet 500 MG PO BID for colitis for 7 Days, #14 TAB 0 Refills Prov: IRINEO THORPE MD 09/20/20 Ciprofloxacin HCl (Ciprofloxacin HCl) 500 Mg Tablet 500 MG PO BID for colitis for 7 Days, #14 TAB 0 Refills Prov: IRINEO THORPE MD 09/20/20 IRINEO THORPE MD Sep 20, 2020 17:09
[2020-09-20 17:11] LABS: HEMATOCRIT 42 % (35-52); HEMOGLOBIN 13.5 G/DL (11.5-16.0); MEAN CORPUSCULAR HEMOGLOBIN 27 PG (25-34); MEAN CORPUSCULAR HGB CONC 32 G/DL (32-36); MEAN CORPUSCULAR VOLUME 85 FL (80-99); NEUTROPHILS % (AUTO) 86 % (42-75); PLATELET COUNT 477 10^3/uL (130-400); WHITE BLOOD COUNT 12.6 10^3/uL (4.3-11.0)
[2020-09-20 17:12] LABS: BASOPHILS # (AUTO) 0.1 10^3/uL (0.0-0.1); BASOPHILS % (AUTO) 0 % (0-10); EOSINOPHILS % (AUTO) 0 % (0-10); LYMPHOCYTES # (AUTO) 1.1 X 10^3 (1.0-4.0); LYMPHOCYTES % (AUTO) 9 % (12-44); MONOCYTES # (AUTO) 0.6 X 10^3 (0.0-1.0); MONOCYTES % (AUTO) 4 % (0-12); NEUTROPHILS # (AUTO) 10.9 X 10^3 (1.8-7.8)
[2020-09-20] MEDS ORDERED: NS 100 ML (IVPB) BAG IV ONE (17:15)
[2020-09-20] MEDS ORDERED: CATHETER FLUSH 10 ML SYR IV PRN (17:15)
[2020-09-20] MEDS ORDERED: HOLD METFORMIN - RECEIVED CONTRAST 20 ML VIAL IV SCH (17:15)
[2020-09-20] MEDS ORDERED: IOHEXOL 350 MG/ML 100 ML (OMNIPAQUE 350) VIAL IV ONE (17:15)
[2020-09-20 17:23] LABS: BASOPHILS % (MANUAL) 1 %; EOSINOPHILS % (MANUAL) 1 %; LYMPHOCYTES % (MANUAL) 6 %; MONOCYTES % (MANUAL) 3 %; NEUTROPHILS % (MANUAL) 89 %; PLATELET ESTIMATE INCREASED
[2020-09-20 17:24] LABS: RBC MORPH NORMAL
[2020-09-20 17:25] LABS: CARBON DIOXIDE 20 MMOL/L (21-32); CHLORIDE 105 MMOL/L (98-107); POTASSIUM 4.1 MMOL/L (3.6-5.0); SODIUM 139 MMOL/L (135-145)
[2020-09-20 17:26] LABS: ALANINE AMINOTRANSFERASE 11 U/L (0-55); ALBUMIN 4.7 GM/DL (3.2-4.5); ALKALINE PHOSPHATASE 70 U/L (40-136); BILIRUBIN,TOTAL 0.4 MG/DL (0.1-1.0); BUN/CREATININE RATIO 22; CALCIUM 9.5 MG/DL (8.5-10.1); CREATININE SERUM 0.68 MG/DL (0.60-1.30); GFR ESTIMATED > 60; GLUCOSE 96 MG/DL (70-105); LIPASE 24 U/L (8-78); TOTAL PROTEIN 7.9 GM/DL (6.4-8.2)
[2020-09-20] MEDS ORDERED: PROMETHAZINE INJ 25 MG/ML (PHENERGAN) AMP IVP STA (17:49)
--- NOTE | 2020-09-20 18:01 | Diagnostic Imaging Report ---
PROCEDURE: CT abdomen and pelvis with contrast, 09/20/2020. TECHNIQUE: Multiple contiguous axial images were obtained through the abdomen and pelvis after administration of intravenous contrast. Auto Exposure Controls were utilized during the CT exam to meet ALARA standards for radiation dose reduction. All CT scans use one or more of the following dose optimizing techniques: automated exposure control, MA and/or KvP adjustment based on patient size and exam type or iterative reconstruction. INDICATION: Nausea, vomiting and diarrhea with generalized abdominal pain. COMPARISON: 07/29/2020 FINDINGS: The visualized lung bases appear clear. The spleen is unremarkable. There is a focal low density area within the anterior border of the right lobe of the liver consistent with focal fatty change. This could be followed to assure stability. There is a nonspecific low density along the posterior border of the right lobe of the liver which is nonspecific and should be followed, as well. The gallbladder is not seen, possibly due to a cholecystectomy, correlate with history. Otherwise it could be contracted. The pancreas and adrenal glands normal. Kidneys unremarkable. There is postoperative change within the right lower quadrant. There are postoperative findings in the anterior pelvis. Minimal free fluid in the pelvis, likely physiologic. There is fluid within the cecum possibly due to focal colitis. The lung bases appear clear. There is no free air. IMPRESSION: 1. Fluid within the cecum nonspecific, perhaps due to a focal colitis. Correlate with symptoms. 2. Follow-up of the findings within the liver recommended. 3. Otherwise, chronic findings, as above. Dictated by: Dictated on workstation # [id number]
[2020-09-20] MEDS ORDERED: HYDROmorphone 2 MG/ML VIAL (DILAUDID) IV STA (20:09)
[2020-09-20] MEDS ORDERED: PANTOPRAZOLE 40 MG (PROTONIX) VIAL IV STA (20:09)
[2020-09-20] MEDS ORDERED: CIPROFLOXACIN 500 MG (CIPRO) TABLET PO STA (22:37)
[2020-09-20] MEDS ORDERED: DICYCLOMINE 10 MG/ML (BENTYL) 2 ML AMP IM STA (22:37)
[2020-09-20] MEDS ORDERED: metroNIDAZOLE 500 MG (FLAGYL) TAB PO STA (22:37)
[2020-09-20 22:47] LABS: CLARITY,URINE CLEAR; COLOR,URINE YELLOW
[2020-09-20 22:53] LABS: BACTERIA,URINE NEGATIVE /HPF; BILIRUBIN,URINE NEGATIVE (NEGATIVE); GLUCOSE, URINE (UA) NEGATIVE (NEGATIVE); KETONES,URINE NEGATIVE (NEGATIVE); LEUKOCYTE ESTERASE ,URINE NEGATIVE (NEGATIVE); NITRITE,URINE NEGATIVE (NEGATIVE); PROTEIN,URINE NEGATIVE (NEGATIVE); WBC,URINE RARE /HPF
[2020-09-20] MEDS ORDERED: CIPR500T5 PO (22:55)
[2020-09-20] MEDS ORDERED: PROM25TA14 PO (22:55)
[2020-09-20] MEDS ORDERED: DICY20TA10 PO (22:55)
[2020-09-20] MEDS ORDERED: METR-145 PO (22:55)
[2020-09-20] MEDS ORDERED: HYDR-3820 PO (22:55)
[2020-09-20 23:09] VITALS: BP 127/76
== END 2020-09-20 23:09 | disposition home or self-care (01) ==
LOC: EDUNIT# 16:29 → ER FS 16:31
DX: K52.9 Noninfective gastroenteritis and colitis, unspecified (principal); R11.2 Nausea with vomiting, unspecified; G89.29 Other chronic pain; M54.9 Dorsalgia, unspecified; Z79.891 Long term (current) use of opiate analgesic
CPT/HCPCS: 36415; 74177; 80053; 81000; 83690; 84703; 85007; 85027

== ENCOUNTER 2021-01-07 08:30 | Emergency (ER) | payer MEDICAID ==
[~2021-01-07] VITALS: Ht 147.3 cm; Wt 59.8 kg
[~2021-01-07 08:30] MED LIST changes: -DCS100C PO; +DICY20TA10 PO; +DOCU-239 PO; +HYDR-3820 PO
[2021-01-07] MEDS ORDERED: morphine INJ 10 MG/ML 1ML (SYR OR VIAL) IVP STA ×2 (08:53→11:30)
[2021-01-07] MEDS ORDERED: ONDANSETRON 4 MG/2 ML (SDV) Z0FRAN IVP ONE ×3 (09:00→11:30)
[2021-01-07] MEDS ORDERED: NS IV 1000 ML 1,000 ML IV SCH (09:00)
--- NOTE | 2021-01-07 09:01 | ED Abdominal Pain ---
General Chief Complaint: Abdominal/GI Problems Stated Complaint: HEMATEMESIS Nursing Triage Note: Patient reports she has IBS and has had difficulty with flare-ups for the last 2 months. She states her abdominal pain, loose stools, and nausea/vomiting have been worse the last week. She states her PCP prescribed her bentyl, zofran, and prednisone. She states she took 1 prednisone yesterday and has had constant vomiting since then, states her vomit had streaks of blood this morning. Source of Information: Patient Exam Limitations: No Limitations History of Present Illness Date Seen by Provider: Jan 07, 2021 Time Seen by Provider: 08:45 Initial Comments Patient is a 30-year-old female with history of irritable bowel syndrome who presents with diffuse epigastric pain nausea and vomiting intermittent for the past 2 months with daily episodes for the past week. Patient has been taking Zofran at home but reports feeling nauseated secondary to pain. She reports one episode of forceful emesis with minimal blood streaking. Pain is nonradiating. No constipation or diarrhea. Bloody stools or dark tarry stools. No fever chills or sweats. No other acute symptoms or complaints. Previous cholecy stectomy Timing/Duration: Other Severity/Quality: Other Location: Other Radiation: Other Activities at Onset: Other Modifying Factors: Improves With Other Associated Symptoms: Other Allergies and Home Medications Allergies Coded Allergies: clindamycin (Verified Allergy, Intermediate, oral blisters, SOB, 07/29/20) cinnamon (Verified Allergy, Unknown, 07/29/20) tramadol (Verified Allergy, Unknown, 01/07/21) Patient Home Medication List Home Medication List Reviewed: Yes Ciprofloxacin HCl (Ciprofloxacin HCl) 500 Mg Tablet, 500 MG PO BID Prescribed by: IRINEO THORPE on 09/20/20 4435 Clonazepam (Clonazepam) 1 Mg Tablet, (Reported) Entered as Reported by: STEPHANIE NIETO on 09/15/20 1443 Dicyclomine HCl (Dicyclomine HCl) 20 Mg Tablet, 20 MG PO QID PRN for abdominal pain/cramping Prescribed by: IRINEO THORPE on 09/20/20 2255 Hydrocodone/Acetaminophen (Hydrocodone-Acetamin 5-325 mg) 1 Each Tablet, 1 TAB PO Q4H PRN for PAIN-SEVERE (8-10) Prescribed by: IRINEO THORPE on 09/15/20 1507 Hydrocodone/Acetaminophen (Hydrocodone-Acetamin 10-325 mg) 1 Each Tablet, 1 EACH PO Q6H PRN for PAIN-SEVERE (8-10) Prescribed by: IRINEO THORPE on 09/20/202254 Ibuprofen (Ibuprofen) 200 Mg Tablet, 400-600 MG PO Q8H PRN for PAIN-MILD (1-4), (Reported) Entered as Reported by: SKYLAR MASSEY on 07/30/20 104 Metronidazole (Metronidazole) 500 Mg Tablet, 500 MG PO BID Prescribed by: IRINEO THORPE on 09/20/202254 Pantoprazole Sodium (Pantoprazole Sodium) 40 Mg Tablet.dr, 40 MG PO DAILY, (Reported) Entered as Reported by: SKYLAR MASSEY on 07/30/20 104 Polyethylene Glycol 3350 (Miralax) 17 Gm Powd.pack, 17 GM PO BID Prescribed by: TISHA FLORENTINO on 08/05/20 1228 Promethazine HCl (Promethazine Tablet) 25 Mg Tablet, (Reported) Entered as Reported by: STEPHANIE NIETO on 09/15/20 1443 Promethazine HCl (Promethazine Tablet) 25 Mg Tablet, 25 MG PO Q8H PRN for NAUSEA/VOMITING Prescribed by: IRINEO THORPE on 09/20/202254 Psyllium Husk/Aspartame (Metamucil Fiber Singles Packet) 3.4 Gm Powd.pack, 1 PACKET PO DAILY, (Reported) Entered as Reported by: SKYLAR MASSEY on 07/30/20 104 Trazodone HCl (Trazodone HCl) 50 Mg Tablet, (Reported) Entered as Reported by: STEPHANIE NIETO on 09/15/20 1443 Review of Systems Review of Systems Constitutional: see HPI EENTM: See HPI Respiratory: Cough Cardiovascular: See HPI Gastrointestinal: See HPI Genitourinary: See HPI Musculoskeletal: see HPI Skin: see HPI Psychiatric/Neurological: See HPI Endocrine: See HPI Hematologic/Lymphatic: See HPI All Other Systems Reviewed Negative Unless Noted: Yes Past Gtluihw-Niwmoy-Rhtbqm Hx Patient Social History Tobacco Use?: Yes Immunizations Up To Date Tetanus Booster (TDap): More than 5yrs PED Vaccines UTD: Yes Seasonal Allergies Seasonal Allergies: No Past Medical History Surgeries: Yes (Umbilical herniorrhaphy 07/04/12,D&C, ENDOMETRIOSIS SCRAPING, d&c, Mesh Tommy) Abdominal, Adenoidectomy, Appendectomy, Bowel Surgery, Gallbladder, Tonsillectomy, Tubal Ligation Respiratory: No Cardiac: No Neurological: No (only if pt takes tramadol. last seizere 04/2011) Reproductive Disorders: Yes (CPP) Female Reproductive Disorders: Endometriosis, Ovarian Cyst Sexually Transmitted Disease: No HIV/AIDS: No Genitourinary: Yes Kidney Infection, UTI-Chronic Gastrointestinal: Yes (umbilical hernia removed 11/25/18) Abdominal Hernia, Gall Bladder Disease Musculoskeletal: No Chronic Back Pain Endocrine: No HEENT: No Cancer: No Psychosocial: Yes Anxiety, Depression Integumentary: No Blood Disorders: No Adverse Reaction/Blood Tranf: No Family Medical History Patient reports no known family medical history. No Pertinent Family Hx Physical Exam Vital Signs Vital Signs - First Documented 01/07/21 08:38 Temp 36.8 Pulse 73 Resp 16 B/P (MAP) 118/73 (88) Pulse Ox 97 O2 Delivery Room Air Capillary Refill : Less Than 3 Seconds Height/Weight/BMI Height: 4'10.00" Weight: 125lbs. 0oz. 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, no motor/sensory deficits, alert, oriented x 3 Skin: normal color Focused Exam Sepsis Stage: Ruled Out Progress/Results/Core Measures Results/Orders Lab Results Laboratory Tests Test 01/07/21 09:14 01/07/21 10:01 Range/Units White Blood Count 7.4 4.3-11.0 10^3/uL Red Blood Count 4.56 3.80-5.11 10^6/uL Hemoglobin 12.7 11.5-16.0 g/dL Hematocrit 38 35-52 % Mean Corpuscular Volume 84 80-99 fL Mean Corpuscular Hemoglobin 28 25-34 pg Mean Corpuscular Hemoglobin Concent 33 32-36 g/dL Red Cell Distribution Width 14.5 10.0-14.5 % Platelet Count 281 130-400 10^3/uL Mean Platelet Volume 10.7 9.0-12.2 fL Immature Granulocyte % (Auto) 0 % Neutrophils (%) (Auto) 77 H 42-75 % Lymphocytes (%) (Auto) 14 12-44 % Monocytes (%) (Auto) 7 0-12 % Eosinophils (%) (Auto) 1 0-10 % Basophils (%) (Auto) 1 0-10 % Neutrophils # (Auto) 5.7 1.8-7.8 X 10^3 Lymphocytes # (Auto) 1.0 1.0-4.0 X 10^3 Monocytes # (Auto) 0.5 0.0-1.0 X 10^3 Eosinophils # (Auto) 0.1 0.0-0.3 10^3/uL Basophils # (Auto) 0.0 0.0-0.1 10^3/uL Immature Granulocyte # (Auto) 0.0 0.0-0.1 10^3/uL Sodium Level 139 135-145 MMOL/L Potassium Level 3.9 3.6-5.0 MMOL/L Chloride Level 105 98-107 MMOL/L Carbon Dioxide Level 25 21-32 MMOL/L Anion Gap 9 5-14 MMOL/L Blood Urea Nitrogen 16 7-18 MG/DL Creatinine 0.82 0.60-1.30 MG/DL Estimat Glomerular Filtration Rate 82 BUN/Creatinine Ratio 20 Glucose Level 101 70-105 MG/DL Calcium Level 9.2 8.5-10.1 MG/DL Corrected Calcium 8.9 8.5-10.1 MG/DL Total Bilirubin 0.4 0.1-1.0 MG/DL Aspartate Amino Transf (AST/SGOT) 11 5-34 U/L Alanine Aminotransferase (ALT/SGPT) 9 0-55 U/L Alkaline Phosphatase 71 40-136 U/L Total Protein 7.3 6.4-8.2 GM/DL Albumin 4.4 3.2-4.5 GM/DL Lipase 20 8-78 U/L Urine Color YELLOW Urine Clarity SL CLOUDY Urine pH 6.0 5-9 Urine Specific [place] 1.025 H 1.016-1.022 Urine Protein NEGATIVE NEGATIVE Urine Glucose (UA) NEGATIVE NEGATIVE Urine Ketones 1+ H NEGATIVE Urine Nitrite NEGATIVE NEGATIVE Urine Bilirubin 1+ H NEGATIVE Urine Urobilinogen 0.2 < = 1.0 MG/DL Urine Leukocyte Esterase NEGATIVE NEGATIVE Urine RBC (Auto) NEGATIVE NEGATIVE Urine RBC 0-2 /HPF Urine WBC 0-2 /HPF Urine Squamous Epithelial Cells 2-5 /HPF Urine Crystals NONE /LPF Urine Bacteria TRACE /HPF Urine Casts NONE /LPF Urine Mucus NEGATIVE /LPF Urine Culture Indicated NO My Orders Orders - NAOMI PAL DO Cbc With Automated Diff (01/07/21 08:48) Comprehensive Metabolic Panel (01/07/21 08:48) Lipase (01/07/21 08:48) Urinalysis (01/07/21 08:48) Urine Bedside (01/07/21 08:48) Morphine Injection (Morphine Injection (01/07/21 08:53) Ondansetron Injection (Zofran Injectio (01/07/21 09:00) Ns Iv 1000 Ml (Sodium Chloride 0.9%) (01/07/21 09:00) Haloperidol Injection (Haldol Injectio (01/07/21 10:00) Ondansetron Injection (Zofran Injectio (01/07/21 11:00) Famotidine Injection (Pepcid Injection) (01/07/21 11:00) Ondansetron Injection (Zofran Injectio (01/07/21 11:30) Morphine Injection (Morphine Injection (01/07/21 11:30) Medications Given in ED Current Medications Medications Dose Ordered Sig/Damion Route Start Time Stop Time Status Last Admin Dose Admin Famotidine 20 mg ONCE ONCE IVP 01/07/21 11:00 01/07/21 11:01 DC 01/07/21 11:09 20 MG Haloperidol Lactate 1.25 mg ONCE ONCE IV 01/07/21 10:00 01/07/21 10:01 DC 01/07/21 10:04 1.25 MG Ondansetron HCl 4 mg ONCE ONCE IVP 01/07/21 09:00 01/07/21 09:01 DC 01/07/21 09:15 4 MG Ondansetron HCl 4 mg ONCE ONCE IVP 01/07/21 11:00 01/07/21 11:01 DC 01/07/21 11:09 4 MG Ondansetron HCl 4 mg ONCE ONCE IVP 01/07/21 11:30 01/07/21 11:31 DC 01/07/21 11:56 4 MG Vital Signs/I&O 01/07/21 08:38 Temp 36.8 Pulse 73 Resp 16 B/P (MAP) 118/73 (88) Pulse Ox 97 O2 Delivery Room Air Blood Pressure Mean: 88 Departure Communication (Admissions) Patient's abdomen remains soft, nonsurgical. Lab work reassuring. No vomiting in the emergency department. This is a chronic problem and patient has an appointment with her GI specialist in 6 weeks she is in the interim being managed by her PCP. We will continue patient on Zofran at home with Pepcid and Compazine, close monitoring and PCP follow-up. Return precautions reviewed. Patient verbalizes understanding agreement discharge instructions prior to departure. Impression Primary Impression: Abdominal pain Additional Impression: Nausea and vomiting Disposition: HOME, SELF-CARE Condition: Stable Departure-Patient Inst. Decision time for Depature: 12:45 Referrals: LUIS QUEZADA APRN (PCP) Primary Care Physician [facility] (Family) Primary Care Physician Patient Instructions: Abdominal Pain, Adult ED, Nausea and Vomiting, Adult (DC) Add. Discharge Instructions: Your evaluated in the emergency department for abdominal pain and nausea vomiting. Please continue Zofran, and take newly prescribed medications as directed follow-up with your PCP in 2 to 3 days for reevaluation. Drink clear liquids only for the next several hours then gradually increase to a soft bland diet as tolerated. Return to the ED if new or worsening symptoms All discharge instructions reviewed with patient and/or family. Voiced understanding. Scripts Famotidine (Pepcid) 20 Mg Tablet 20 MG PO BID, #20 TAB Prov: NAOMI PAL DO 01/07/21 Prochlorperazine Maleate (Compazine) 10 Mg Tablet 10 MG PO Q8H for Nausea, #10 TAB Prov: NAOMI PAL DO 01/07/21 NAOMI PAL DO Jan 07, 2021 09:01
[2021-01-07 09:24] LABS: BASOPHILS % (AUTO) 1 % (0-10); EOSINOPHILS # (AUTO) 0.1 10^3/uL (0.0-0.3); EOSINOPHILS % (AUTO) 1 % (0-10); HEMATOCRIT 38 % (35-52); HEMOGLOBIN 12.7 g/dL (11.5-16.0); LYMPHOCYTES % (AUTO) 14 % (12-44); MEAN CORPUSCULAR HEMOGLOBIN 28 pg (25-34); MEAN CORPUSCULAR HGB CONC 33 g/dL (32-36); MEAN CORPUSCULAR VOLUME 84 fL (80-99); MEAN PLATELET VOLUME 10.7 fL (9.0-12.2); MONOCYTES # (AUTO) 0.5 X 10^3 (0.0-1.0); MONOCYTES % (AUTO) 7 % (0-12); NEUTROPHILS # (AUTO) 5.7 X 10^3 (1.8-7.8); NEUTROPHILS % (AUTO) 77 % (42-75); PLATELET COUNT 281 10^3/uL (130-400); WHITE BLOOD COUNT 7.4 10^3/uL (4.3-11.0)
[2021-01-07 09:46] LABS: POTASSIUM 3.9 MMOL/L (3.6-5.0)
[2021-01-07 09:47] LABS: ALBUMIN 4.4 GM/DL (3.2-4.5); BILIRUBIN,TOTAL 0.4 MG/DL (0.1-1.0); CALCIUM 9.2 MG/DL (8.5-10.1); CREATININE SERUM 0.82 MG/DL (0.60-1.30); TOTAL PROTEIN 7.3 GM/DL (6.4-8.2)
[2021-01-07] MEDS ORDERED: HALOPERIDOL 5 MG/ML (HALDOL) VIAL IV ONE (10:00)
[2021-01-07 10:07] LABS: CLARITY,URINE SL CLOUDY; COLOR,URINE YELLOW; GLUCOSE, URINE (UA) NEGATIVE (NEGATIVE); KETONES,URINE 1+ (NEGATIVE); LEUKOCYTE ESTERASE ,URINE NEGATIVE (NEGATIVE); NITRITE,URINE NEGATIVE (NEGATIVE); PROTEIN,URINE NEGATIVE (NEGATIVE)
[2021-01-07 10:22] LABS: BACTERIA,URINE TRACE /HPF; BILIRUBIN,URINE 1+ (NEGATIVE); RBC,URINE 0-2 /HPF; WBC,URINE 0-2 /HPF
[2021-01-07] MEDS ORDERED: FAMOTIDINE 20MG/2ML IV (PEPCID) IVP ONE (11:00)
[2021-01-07] MEDS ORDERED: FAMO-119 PO (12:48)
[2021-01-07] MEDS ORDERED: PROC-1 PO (12:48)
[2021-01-07 12:53] VITALS: BP 103/72
== END 2021-01-07 12:59 | disposition home or self-care (01) ==
LOC: EDUNIT# 08:30 → ER FS 08:32
DX: R10.13 Epigastric pain (principal); R11.2 Nausea with vomiting, unspecified; G89.29 Other chronic pain; M54.9 Dorsalgia, unspecified; F41.9 Anxiety disorder, unspecified; F32.9 Major depressive disorder, single episode, unspecified; Z79.891 Long term (current) use of opiate analgesic; Z79.899 Other long term (current) drug therapy
CPT/HCPCS: 36415; 80053; 81000; 83690; 84703; 85025; 96361; 96374; 96375; 96376

== ENCOUNTER 2021-01-23 07:09 | Emergency (ER) | payer MEDICAID ==
[~2021-01-23] VITALS: Ht 149.9 cm; Wt 61.2 kg
[~2021-01-23 07:09] MED LIST changes: +FAMO-119 PO; +PROC-1 PO
[2021-01-23 07:30] LABS: BASOPHILS % (AUTO) 1 % (0-10); EOSINOPHILS % (AUTO) 2 % (0-10); HEMATOCRIT 38 % (35-52); HEMOGLOBIN 12.4 g/dL (11.5-16.0); LYMPHOCYTES % (AUTO) 24 % (12-44); MEAN CORPUSCULAR HEMOGLOBIN 28 pg (25-34); MEAN CORPUSCULAR HGB CONC 33 g/dL (32-36); MEAN CORPUSCULAR VOLUME 85 fL (80-99); MEAN PLATELET VOLUME 10.8 fL (9.0-12.2); MONOCYTES % (AUTO) 13 % (0-12); NEUTROPHILS # (AUTO) 3.1 X 10^3 (1.8-7.8); NEUTROPHILS % (AUTO) 60 % (42-75); PLATELET COUNT 288 10^3/uL (130-400); WHITE BLOOD COUNT 5.1 10^3/uL (4.3-11.0)
[2021-01-23] MEDS ORDERED: FAMOTIDINE 20MG/2ML IV (PEPCID) IVP ONE (07:30)
[2021-01-23] MEDS ORDERED: ONDANSETRON 4 MG/2 ML (SDV) Z0FRAN IVP ONE (07:30)
[2021-01-23] MEDS ORDERED: NS IV 1000 ML 1,000 ML IV SCH (07:30)
[2021-01-23 07:31] LABS: EOSINOPHILS # (AUTO) 0.1 10^3/uL (0.0-0.3); LYMPHOCYTES # (AUTO) 1.2 X 10^3 (1.0-4.0); MONOCYTES # (AUTO) 0.7 X 10^3 (0.0-1.0)
[2021-01-23 07:40] LABS: BILIRUBIN,URINE NEGATIVE (NEGATIVE); CLARITY,URINE SLIGHTLY CLOUDY; COLOR,URINE YELLOW; GLUCOSE, URINE (UA) NEGATIVE (NEGATIVE); KETONES,URINE NEGATIVE (NEGATIVE); LEUKOCYTE ESTERASE ,URINE TRACE (NEGATIVE); NITRITE,URINE NEGATIVE (NEGATIVE); PROTEIN,URINE NEGATIVE (NEGATIVE)
[2021-01-23 07:41] LABS: BACTERIA,URINE MODERATE /HPF; SQUAMOUS EPITHELIAL CELL,UR 25-50 /HPF
[2021-01-23] MEDS ORDERED: KETOROLAC 30 MG/ML VIAL IVP ONE (07:45)
[2021-01-23 07:48] LABS: ALANINE AMINOTRANSFERASE 9 U/L (0-55); ALKALINE PHOSPHATASE 64 U/L (40-136); BILIRUBIN,TOTAL 0.4 MG/DL (0.1-1.0); BUN/CREATININE RATIO 15; CALCIUM 9.5 MG/DL (8.5-10.1); CARBON DIOXIDE 22 MMOL/L (21-32); CHLORIDE 107 MMOL/L (98-107); GFR ESTIMATED 85; GLUCOSE 109 MG/DL (70-105); POTASSIUM 3.4 MMOL/L (3.6-5.0); SODIUM 140 MMOL/L (135-145)
[2021-01-23 07:49] LABS: ALBUMIN 4.6 GM/DL (3.2-4.5)
[2021-01-23] MEDS ORDERED: NITR-65 PO (08:17)
--- NOTE | 2021-01-23 08:17 | ED Abdominal Pain ---
General Chief Complaint: Abdominal/GI Problems Stated Complaint: ABD PAIN; VOMITING Nursing Triage Note: PT AMBULATE TO ROOM FS06 WITH C/O CHRONIC ABD PAIN, N/V. PT REPORTS SHE IS TO SEE A SPECIALIST IN FEBRUARY FOR THIS C/O. PT REPORTS TAKING COMPAZINE AND BENTYL WITHOUT RELIEF. Source of Information: Patient Exam Limitations: No Limitations History of Present Illness Date Seen by Provider: Jan 23, 2021 Time Seen by Provider: 07:10 Initial Comments Patient is 30-year-old female with chronic intermittent abdominal pain and history of nonspecific colitis who presents with diffuse periumbilical pain starting yesterday. Pain is sharp, intermittent is rated mild to moderate. Is worse with palpation and movement. It is nonmigratory has not progressed in severity or change locations. She reports nausea and one episode of vomiting. She has taken Zofran and Compazine with partial relief. She denies diarrhea or bloody stools. No fever chills or sweats. No urinary frequency urgency or burning. No flank pain. No other acute symptoms or complaints. Patient's been evaluated for similar abdominal pain episodes in this emergency department by her PCP. She is currently awaiting specialist referral next month in [place]. Previous cholecystectomy and tubal ligation. Last menstrual period was 2 weeks ago. No other acute symptoms or complaints. Timing/Duration: 1-2 Days Severity/Quality: Other Location: Other Radiation: Other Activities at Onset: Other Modifying Factors: Improves With Other Associated Symptoms: Other Allergies and Home Medications Allergies Coded Allergies: clindamycin (Verified Allergy, Intermediate, oral blisters, SOB, 07/29/20) cinnamon (Verified Allergy, Unknown, 07/29/20) tramadol (Verified Allergy, Unknown, 01/07/21) Patient Home Medication List Home Medication List Reviewed: Yes Ciprofloxacin HCl (Ciprofloxacin HCl) 500 Mg Tablet, 500 MG PO BID Prescribed by: IRINEO TYSONRT on 09/20/20 2255 Clonazepam (Clonazepam) 1 Mg Tablet, (Reported) Entered as Reported by: STEPHANIE NIETO on 09/15/20 1443 Dicyclomine HCl (Dicyclomine HCl) 20 Mg Tablet, 20 MG PO QID PRN for abdominal pain/cramping Prescribed by: IRINEO TYSONRT on 09/20/20 2255 Famotidine (Pepcid) 20 Mg Tablet, 20 MG PO BID Prescribed by: NAOMI PAL on 01/07/21 1248 Hydrocodone/Acetaminophen (Hydrocodone-Acetamin 5-325 mg) 1 Each Tablet, 1 TAB PO Q4H PRN for PAIN-SEVERE (8-10) Prescribed by: IRINEO THORPE on 09/15/20 1507 Hydrocodone/Acetaminophen (Hydrocodone-Acetamin 10-325 mg) 1 Each Tablet, 1 EACH PO Q6H PRN for PAIN-SEVERE (8-10) Prescribed by: IRINEO THORPE on 09/20/20 225 Ibuprofen (Ibuprofen) 200 Mg Tablet, 400-600 MG PO Q8H PRN for PAIN-MILD (1-4), (Reported) Entered as Reported by: SKYLAR MASSEY on 07/30/20 104 Metronidazole (Metronidazole) 500 Mg Tablet, 500 MG PO BID Prescribed by: IRINEO THORPE on 09/20/20 225 Pantoprazole Sodium (Pantoprazole Sodium) 40 Mg Tablet.dr, 40 MG PO DAILY, (Reported) Entered as Reported by: SKYLAR MASSEY on 07/30/20 1048 Polyethylene Glycol 3350 (Miralax) 17 Gm Powd.pack, 17 GM PO BID Prescribed by: TISHA FLORENTINO on 08/05/20 1228 Prochlorperazine Maleate (Compazine) 10 Mg Tablet, 10 MG PO Q8H Prescribed by: ANOMI PAL on 01/07/21 1248 Promethazine HCl (Promethazine Tablet) 25 Mg Tablet, (Reported) Entered as Reported by: STEPHANIE NIETO on 09/15/20 1443 Promethazine HCl (Promethazine Tablet) 25 Mg Tablet, 25 MG PO Q8H PRN for NAUSEA/VOMITING Prescribed by: IRINEO THORPE on 09/20/20 225 Psyllium Husk/Aspartame (Metamucil Fiber Singles Packet) 3.4 Gm Powd.pack, 1 PACKET PO DAILY, (Reported) Entered as Reported by: SKYLAR MASSEY on 07/30/20 1048 Trazodone HCl (Trazodone HCl) 50 Mg Tablet, (Reported) Entered as Reported by: STEPHANIE NIETO on 09/15/20 1443 Review of Systems Review of Systems Constitutional: see HPI EENTM: See HPI Respiratory: See HPI Cardiovascular: See HPI Gastrointestinal: See HPI Genitourinary: See HPI Musculoskeletal: see HPI Skin: see HPI Psychiatric/Neurological: See HPI Endocrine: See HPI Hematologic/Lymphatic: See HPI All Other Systems Reviewed Negative Unless Noted: Yes Past Mberpfb-Eknjyx-Eorwpm Hx Patient Social History Tobacco Use?: No Smoking Status: Never a Smoker Smokeless Tobacco Frequency: Never a User Use of E-Cig and/or Vaping Robert: Never a User Substance use?: No Alcohol Use?: No Pt feels they are or have been: No Immunizations Up To Date Tetanus Booster (TDap): More than 5yrs PED Vaccines UTD: Yes Seasonal Allergies Seasonal Allergies: No Past Medical History Surgeries: Yes (Umbilical herniorrhaphy 07/04/12,D&C, ENDOMETRIOSIS SCRAPING, d&c, Mesh Tommy) Abdominal, Adenoidectomy, Appendectomy, Bowel Surgery, Gallbladder, Tonsillectomy, Tubal Ligation Respiratory: No Cardiac: No Neurological: No (only if pt takes tramadol. last seizere 04/2011) Reproductive Disorders: Yes (CPP) Female Reproductive Disorders: Endometriosis, Ovarian Cyst Sexually Transmitted Disease: No HIV/AIDS: No Genitourinary: Yes Kidney Infection, UTI-Chronic Gastrointestinal: Yes (umbilical hernia removed 11/25/18) Abdominal Hernia, Gall Bladder Disease Musculoskeletal: No Chronic Back Pain Endocrine: No HEENT: No Cancer: No Psychosocial: Yes Anxiety, Depression Integumentary: No Blood Disorders: No Adverse Reaction/Blood Tranf: No Family Medical History Patient reports no known family medical history. No Pertinent Family Hx Physical Exam Vital Signs Vital Signs - First Documented 01/23/21 07:15 Temp 36.9 Pulse 69 Resp 17 B/P (MAP) 115/77 (90) O2 Delivery Room Air Capillary Refill : Less Than 3 Seconds Height/Weight/BMI Height: 4'10.00" Weight: 125lbs. 0oz. 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, no motor/sensory deficits, oriented x 3 Skin: normal color Focused Exam Sepsis Stage: Ruled Out Progress/Results/Core Measures Results/Orders Lab Results Laboratory Tests Test 01/23/21 07:20 01/23/21 07:30 Range/Units White Blood Count 5.1 4.3-11.0 10^3/uL Red Blood Count 4.48 3.80-5.11 10^6/uL Hemoglobin 12.4 11.5-16.0 g/dL Hematocrit 38 35-52 % Mean Corpuscular Volume 85 80-99 fL Mean Corpuscular Hemoglobin 28 25-34 pg Mean Corpuscular Hemoglobin Concent 33 32-36 g/dL Red Cell Distribution Width 14.5 10.0-14.5 % Platelet Count 288 130-400 10^3/uL Mean Platelet Volume 10.8 9.0-12.2 fL Immature Granulocyte % (Auto) 0 % Neutrophils (%) (Auto) 60 42-75 % Lymphocytes (%) (Auto) 24 12-44 % Monocytes (%) (Auto) 13 H 0-12 % Eosinophils (%) (Auto) 2 0-10 % Basophils (%) (Auto) 1 0-10 % Neutrophils # (Auto) 3.1 1.8-7.8 X 10^3 Lymphocytes # (Auto) 1.2 1.0-4.0 X 10^3 Monocytes # (Auto) 0.7 0.0-1.0 X 10^3 Eosinophils # (Auto) 0.1 0.0-0.3 10^3/uL Basophils # (Auto) 0.0 0.0-0.1 10^3/uL Immature Granulocyte # (Auto) 0.0 0.0-0.1 10^3/uL Sodium Level 140 135-145 MMOL/L Potassium Level 3.4 L 3.6-5.0 MMOL/L Chloride Level 107 98-107 MMOL/L Carbon Dioxide Level 22 21-32 MMOL/L Anion Gap 11 5-14 MMOL/L Blood Urea Nitrogen 12 7-18 MG/DL Creatinine 0.80 0.60-1.30 MG/DL Estimat Glomerular Filtration Rate 85 BUN/Creatinine Ratio 15 Glucose Level 109 H 70-105 MG/DL Calcium Level 9.5 8.5-10.1 MG/DL Corrected Calcium 8.5-10.1 MG/DL Total Bilirubin 0.4 0.1-1.0 MG/DL Aspartate Amino Transf (AST/SGOT) 12 5-34 U/L Alanine Aminotransferase (ALT/SGPT) 9 0-55 U/L Alkaline Phosphatase 64 40-136 U/L Total Protein 7.0 6.4-8.2 GM/DL Albumin 4.6 H 3.2-4.5 GM/DL Urine Color YELLOW Urine Clarity SLIGHTLY CLOUDY Urine pH 6.0 5-9 Urine Specific [place] 1.015 L 1.016-1.022 Urine Protein NEGATIVE NEGATIVE Urine Glucose (UA) NEGATIVE NEGATIVE Urine Ketones NEGATIVE NEGATIVE Urine Nitrite NEGATIVE NEGATIVE Urine Bilirubin NEGATIVE NEGATIVE Urine Urobilinogen 0.2 < = 1.0 MG/DL Urine Leukocyte Esterase TRACE H NEGATIVE Urine RBC (Auto) NEGATIVE NEGATIVE Urine RBC 5-10 H /HPF Urine WBC 10-25 H /HPF Urine Squamous Epithelial Cells 25-50 H /HPF Urine Crystals NONE /LPF Urine Bacteria MODERATE H /HPF Urine Casts NONE /LPF Urine Mucus LARGE H /LPF Urine Culture Indicated NO My Orders Orders - NAOMI PAL DO Ondansetron Injection (Zofran Injectio (01/23/21 07:30) Famotidine Injection (Pepcid Injection) (01/23/21 07:30) Cbc With Automated Diff (01/23/21 07:25) Comprehensive Metabolic Panel (01/23/21 07:25) Urinalysis (01/23/21 07:25) Urine Bedside (01/23/21 07:25) Ns Iv 1000 Ml (Sodium Chloride 0.9%) (01/23/21 07:30) Ketorolac Injection (Toradol Injection) (01/23/21 07:45) Medications Given in ED Current Medications Medications Dose Ordered Sig/Damion Route Start Time Stop Time Status Last Admin Dose Admin Famotidine 20 mg ONCE ONCE IVP 01/23/21 07:30 01/23/21 07:31 DC 01/23/21 07:47 20 MG Ketorolac Tromethamine 30 mg ONCE ONCE IVP 01/23/21 07:45 01/23/21 07:46 DC 01/23/21 07:47 30 MG Ondansetron HCl 4 mg ONCE ONCE IVP 01/23/21 07:30 01/23/21 07:31 DC 01/23/21 07:47 4 MG Vital Signs/I&O 01/23/21 07:15 Temp 36.9 Pulse 69 Resp 17 B/P (MAP) 115/77 (90) O2 Delivery Room Air Blood Pressure Mean: 90 Departure Communication (Admissions) Patient's abdomen soft, nonsurgical on repeat evaluation. Lab work is reassuring. Patient does have a UTI which may be contributing to her nausea symptoms. Will treat supportively with PCP follow-up. Return precautions reviewed. Patient verbalizes understanding agreement discharge instructions prior to departure. Impression Primary Impression: Abdominal pain Additional Impression: Nausea & vomiting Disposition: HOME, SELF-CARE Condition: Stable Departure-Patient Inst. Decision time for Depature: 08:15 Referrals: LUIS QUEZADA APRN (PCP) Primary Care Physician [facility] (Family) Primary Care Physician Patient Instructions: Nausea and Vomiting, Adult ED, Abdominal Pain, Adult ED Add. Discharge Instructions: You were evaluated in the emergency department for abdominal pain and nausea. Lab was performed and is nondiagnostic except for the presence of a urinary tract infection. Please continue home nausea medication and take Tylenol ibuprofen for pain and complete full course of antibiotics. Follow-up with your PCP for reevaluation and your specialist as scheduled. Return to the ED if new or worsening symptoms. All discharge instructions reviewed with patient and/or family. Voiced understanding. Scripts Nitrofurantoin Monohyd/M-Cryst (Macrobid 100 mg Capsule) 100 Mg Capsule 1 TAB PO BID, #14 CAP Prov: NAOMI PAL DO 01/23/21 NAOMI PAL DO Jan 23, 2021 08:17
[2021-01-23 08:44] VITALS: BP 127/78
== END 2021-01-23 08:45 | disposition home or self-care (01) ==
LOC: EDUNIT# 07:09 → ER FS 07:10
DX: R10.33 Periumbilical pain (principal); R11.2 Nausea with vomiting, unspecified; G89.29 Other chronic pain; M54.9 Dorsalgia, unspecified; F41.9 Anxiety disorder, unspecified; F32.9 Major depressive disorder, single episode, unspecified; Z79.891 Long term (current) use of opiate analgesic; Z79.899 Other long term (current) drug therapy
CPT/HCPCS: 36415; 80053; 81000; 84703; 85025; 96374; 96375

== ENCOUNTER 2021-03-01 14:30 | Emergency (ER) | payer MEDICAID ==
[~2021-03-01] VITALS: Ht 149 cm; Wt 60.0 kg
[~2021-03-01 14:30] MED LIST changes: +CYCL10TA25 PO; +DICY20TA PO; -DICY20TA10 PO; -LEVO500T80 PO; +LEVO500T81 PO
--- NOTE | 2021-03-01 14:40 | ED Cardiac General ---
History of Present Illness General Stated Complaint: CHEST PAIN History of Present Illness Date Seen by Provider: Mar 01, 2021 Time Seen by Provider: 14:40 Initial Comments 30-year-old female presents with chest pressure. Patient reports that she feels like she just had something to say on her chest all day today. Patient reports that she was at work today when it started. That she felt she got little dizzy so she decided come to the ER. Patient reports that 4 days ago she started amitriptyline. Patient denies any cough, fevers, chills, nausea or vomiting. She feels her describes it as like she needs to take a deep breath to be able to breathe. Allergies and Home Medications Allergies Coded Allergies: clindamycin (Verified Allergy, Intermediate, oral blisters, SOB, 07/29/20) cinnamon (Verified Allergy, Unknown, 07/29/20) tramadol (Verified Allergy, Unknown, 01/07/21) Patient Home Medication List Home Medication List Reviewed: Yes Ciprofloxacin HCl (Ciprofloxacin HCl) 500 Mg Tablet, 500 MG PO BID Prescribed by: IRINEO THORPE on 09/20/20 2255 Clonazepam (Clonazepam) 1 Mg Tablet, (Reported) Entered as Reported by: STEPHANIE NIETO on 09/15/20 1443 Dicyclomine HCl (Dicyclomine HCl) 20 Mg Tablet, 20 MG PO QID PRN for abdominal pain/cramping Prescribed by: IRINEO THORPE on 09/20/20 2255 Famotidine (Pepcid) 20 Mg Tablet, 20 MG PO BID Prescribed by: NAOMI PAL on 01/07/21 1248 Hydrocodone/Acetaminophen (Hydrocodone-Acetamin 5-325 mg) 1 Each Tablet, 1 TAB PO Q4H PRN for PAIN-SEVERE (8-10) Prescribed by: IRINEO THORPE on 09/15/20 1507 Hydrocodone/Acetaminophen (Hydrocodone-Acetamin 10-325 mg) 1 Each Tablet, 1 EACH PO Q6H PRN for PAIN-SEVERE (8-10) Prescribed by: IRINEO THORPE on 09/20/20 2255 Ibuprofen (Ibuprofen) 200 Mg Tablet, 400-600 MG PO Q8H PRN for PAIN-MILD (1-4), (Reported) Entered as Reported by: SKYLAR MASSEY on 07/30/20 1048 Metronidazole (Metronidazole) 500 Mg Tablet, 500 MG PO BID Prescribed by: IRINEO THORPE on 09/20/20 225 Nitrofurantoin Monohyd/M-Cryst (Macrobid 100 mg Capsule) 100 Mg Capsule, 1 TAB PO BID Prescribed by: NAOMI PAL on 01/23/21 0817 Pantoprazole Sodium (Pantoprazole Sodium) 40 Mg Tablet.dr, 40 MG PO DAILY, (Reported) Entered as Reported by: SKYLAR MASSEY on 07/30/20 1048 Polyethylene Glycol 3350 (Miralax) 17 Gm Powd.pack, 17 GM PO BID Prescribed by: TISHA FLORENTINO on 08/05/20 1228 Prochlorperazine Maleate (Compazine) 10 Mg Tablet, 10 MG PO Q8H Prescribed by: NAOMI PAL on 01/07/21 1248 Promethazine HCl (Promethazine Tablet) 25 Mg Tablet, (Reported) Entered as Reported by: STEPHANIE NIETO on 09/15/20 1443 Promethazine HCl (Promethazine Tablet) 25 Mg Tablet, 25 MG PO Q8H PRN for N AUSEA/VOMITING Prescribed by: IRINEO THORPE on 09/20/20 225 Psyllium Husk/Aspartame (Metamucil Fiber Singles Packet) 3.4 Gm Powd.pack, 1 PACKET PO DAILY, (Reported) Entered as Reported by: SKYLAR MASSEY on 07/30/20 104 Trazodone HCl (Trazodone HCl) 50 Mg Tablet, (Reported) Entered as Reported by: STEPHANIE NIETO on 09/15/20 1443 Review of Systems Review of Systems Constitutional: No chills, No fever Respiratory: See HPI; Denies Cough Cardiovascular: See HPI; Denies Chest Pain Gastrointestinal: No Symptoms Reported Genitourinary: No Symptoms Reported Musculoskeletal: no symptoms reported Skin: no symptoms reported Psychiatric/Neurological: No Symptoms Reported Endocrine: No Symptoms Reported Hematologic/Lymphatic: No Symptoms Reported Past Wfavwjl-[id number]-Qfamtm Hx Immunizations Up To Date Tetanus Booster (TDap): More than 5yrs PED Vaccines UTD: Yes Seasonal Allergies Seasonal Allergies: No Past Medical History Surgeries: Yes (Umbilical herniorrhaphy 07/04/12,D&C, ENDOMETRIOSIS SCRAPING, d&c, Mesh Tommy) Abdominal, Adenoidectomy, Appendectomy, Bowel Surgery, Gallbladder, Tonsillectomy, Tubal Ligation Respiratory: No Cardiac: No Neurological: No (only if pt takes tramadol. last seizere 04/2011) Reproductive Disorders: Yes (CPP) Female Reproductive Disorders: Endometriosis, Ovarian Cyst Sexually Transmitted Disease: No HIV/AIDS: No Genitourinary: Yes Kidney Infection, UTI-Chronic Gastrointestinal: Yes (umbilical hernia removed 11/25/18) Abdominal Hernia, Gall Bladder Disease Musculoskeletal: No Chronic Back Pain Endocrine: No HEENT: No Cancer: No Psychosocial: Yes Anxiety, Depression Integumentary: No Blood Disorders: No Adverse Reaction/Blood Tranf: No Family Medical History Patient reports no known family medical history. No Pertinent Family Hx Physical Exam Vital Signs Vital Signs - First Documented 03/01/21 14:44 Temp 36.6 Pulse 87 Resp 18 B/P (MAP) 121/90 (100) Pulse Ox 98 O2 Delivery Room Air Capillary Refill : Height, Weight, BMI Height: 4'10.00" Weight: 125lbs. 0oz. [id number]; 27.00 BMI Method:Stated General Appearance: No Apparent Distress, WD/WN Neck: Full Range of Motion, Non Tender Respiratory: Lungs Clear, Normal Breath Sounds Cardiovascular: Regular Rate, Rhythm, No Edema Gastrointestinal: Non Tender, Soft Extremity: Normal Capillary Refill, Normal Inspection Neurologic/Psychiatric: Alert, Oriented x3, No Motor/Sensory Deficits, Normal Mood/Affect, product picker II-XII Norm as Tested Skin: Normal Color, Warm/Dry Progress/Results/Core Measures Results/Orders Lab Results Laboratory Tests Test 03/01/21 14:39 Range/Units White Blood Count 6.4 4.3-11.0 10^3/uL Red Blood Count 4.29 3.80-5.11 10^6/uL Hemoglobin 12.2 11.5-16.0 g/dL Hematocrit 37 35-52 % Mean Corpuscular Volume 86 80-99 fL Mean Corpuscular Hemoglobin 28 25-34 pg Mean Corpuscular Hemoglobin Concent 33 32-36 g/dL Red Cell Distribution Width 14.3 10.0-14.5 % Platelet Count 320 130-400 10^3/uL Mean Platelet Volume 10.5 9.0-12.2 fL Neutrophils (%) (Auto) 60 42-75 % Lymphocytes (%) (Auto) 31 12-44 % Monocytes (%) (Auto) 7 0-12 % Eosinophils (%) (Auto) 2 0-10 % Basophils (%) (Auto) 1 0-10 % Neutrophils # (Auto) 3.8 1.8-7.8 X 10^3 Lymphocytes # (Auto) 2.0 1.0-4.0 X 10^3 Monocytes # (Auto) 0.4 0.0-1.0 X 10^3 Eosinophils # (Auto) 0.1 0.0-0.3 10^3/uL Basophils # (Auto) 0.1 0.0-0.1 10^3/uL Prothrombin Time 13.7 12.2-14.7 SEC INR Comment 1.0 0.8-1.4 Activated Partial Thromboplast Time 31 24-35 SEC Sodium Level 137 135-145 MMOL/L Potassium Level 3.7 3.6-5.0 MMOL/L Chloride Level 100 98-107 MMOL/L Carbon Dioxide Level 23 21-32 MMOL/L Anion Gap 14 5-14 MMOL/L Blood Urea Nitrogen 14 7-18 MG/DL Creatinine 0.78 0.60-1.30 MG/DL Estimat Glomerular Filtration Rate 87 BUN/Creatinine Ratio 18 Glucose Level 87 70-105 MG/DL Calcium Level 9.4 8.5-10.1 MG/DL Corrected Calcium 9.0 8.5-10.1 MG/DL Magnesium Level 1.9 1.6-2.4 MG/DL Total Bilirubin 0.2 0.1-1.0 MG/DL Aspartate Amino Transf (AST/SGOT) 16 5-34 U/L Alanine Aminotransferase (ALT/SGPT) 10 0-55 U/L Alkaline Phosphatase 63 40-136 U/L Troponin I < 0.30 <0.30 NG/ML Total Protein 7.5 6.4-8.2 GM/DL Albumin 4.5 3.2-4.5 GM/DL My Orders Orders - DAWSON,SADIE L DO Cbc With Automated Diff (03/01/21 14:40) Magnesium (03/01/21 14:40) Chest 1 View Ap/Pa Only (03/01/21 14:40) Ekg Tracing (03/01/21 14:40) Comprehensive Metabolic Panel (03/01/21 14:40) Protime With Inr (03/01/21 14:40) Partial Thromboplastin Time (03/01/21 14:40) Monitor-Rhythm Ecg Trace Only (03/01/21 14:40) Aspirin Chewable Tablet (Baby Aspirin Ch (03/01/21 14:45) Ed Iv/Invasive Line Start (03/01/21 14:40) Troponin I Fs (03/01/21 14:40) Medications Given in ED Current Medications Medications Dose Ordered Sig/Damion Route Start Time Stop Time Status Last Admin Dose Admin Aspirin 324 mg ONCE ONCE PO 03/01/21 14:45 03/01/21 14:46 DC 03/01/21 15:00 324 MG Vital Signs/I&O 03/01/21 03/01/21 14:44 15:31 Temp 36.6 36.6 Pulse 87 85 Resp 18 18 B/P (MAP) 121/90 (100) 113/82 Pulse Ox 98 98 O2 Delivery Room Air Room Air Progress Progress Note : Progress Note Patient with negative physical exam aside some mild palpation tenderness in the chest wall. Patient with negative EKG, negative troponin and no abnormal findings on labs. I suspect this likely a side effect from her amitriptyline that she just started along with some underlying anxiety. Idiscussed findings with her recommended that she follow-up with her primary care provider in a couple days if she is continue to have some side effects from the amitriptyline or worsening anxiety type features. Patient was stable and discharged home Initial ECG Impression Date: Mar 01, 2021 Initial ECG Impression Time: 14:31 Initial ECG Rate: 90 Initial ECG Rhythm: Normal Sinus Initial ECG Impression: Normal Comment No acute ST changes Diagnostic Imaging Diagonstic Imaging: Xray Plain Films/CT/US/NM/MRI: chest Comments CHEST 1 VIEW AP/PA ONLY INDICATION: Chest pain FINDINGS: Upright portable chest shows normal heart size and vascularity. The lungs are clear. There is no effusion or pneumothorax. There is mild scoliosis. IMPRESSION: No acute abnormality is seen with no change from 10/11/2019. Departure Impression Primary Impression: Chest discomfort Disposition: 01 HOME, SELF-CARE Condition: Stable Departure-Patient Inst. Referrals: LUIS QUEZADA APRN (PCP) Primary Care Physician [facility] (Family) Primary Care Physician Patient Instructions: Chest Pain That Is Not Caused by the Heart (DC), MEDICATION REACTION Add. Discharge Instructions: Continue your current medication as prescribed. Follow-up with your primary care provider if symptoms are not resolved or started improving by the end of the week SADIE DAWSON DO Mar 01, 2021 14:40
[2021-03-01] MEDS ORDERED: ASPIRIN 81 MG CHEW (CHILDREN'S ASA) PO ONE (14:45)
[2021-03-01 14:50] LABS: HEMATOCRIT 37 % (35-52); HEMOGLOBIN 12.2 g/dL (11.5-16.0); MEAN CORPUSCULAR HEMOGLOBIN 28 pg (25-34); MEAN CORPUSCULAR HGB CONC 33 g/dL (32-36); MEAN CORPUSCULAR VOLUME 86 fL (80-99); MEAN PLATELET VOLUME 10.5 fL (9.0-12.2); PLATELET COUNT 320 10^3/uL (130-400); WHITE BLOOD COUNT 6.4 10^3/uL (4.3-11.0)
[2021-03-01 14:51] LABS: BASOPHILS # (AUTO) 0.1 10^3/uL (0.0-0.1); BASOPHILS % (AUTO) 1 % (0-10); EOSINOPHILS # (AUTO) 0.1 10^3/uL (0.0-0.3); EOSINOPHILS % (AUTO) 2 % (0-10); LYMPHOCYTES % (AUTO) 31 % (12-44); MONOCYTES # (AUTO) 0.4 X 10^3 (0.0-1.0); MONOCYTES % (AUTO) 7 % (0-12); NEUTROPHILS # (AUTO) 3.8 X 10^3 (1.8-7.8); NEUTROPHILS % (AUTO) 60 % (42-75)
--- NOTE | 2021-03-01 14:58 | Diagnostic Imaging Report ---
INDICATION: Chest pain FINDINGS: Upright portable chest shows normal heart size and vascularity. The lungs are clear. There is no effusion or pneumothorax. There is mild scoliosis. IMPRESSION: No acute abnormality is seen with no change from 10/11/2019. Dictated by: Dictated on workstation # [id number]
[2021-03-01 14:59] LABS: PROTHROMBIN TIME PATIENT 13.7 SEC (12.2-14.7)
[2021-03-01 15:11] LABS: CALCIUM 9.4 MG/DL (8.5-10.1); CREATININE SERUM 0.78 MG/DL (0.60-1.30); POTASSIUM 3.7 MMOL/L (3.6-5.0)
[2021-03-01 15:12] LABS: ALBUMIN 4.5 GM/DL (3.2-4.5); BILIRUBIN,TOTAL 0.2 MG/DL (0.1-1.0); MAGNESIUM 1.9 MG/DL (1.6-2.4); TOTAL PROTEIN 7.5 GM/DL (6.4-8.2)
[2021-03-01 15:31] VITALS: BP 113/82
== END 2021-03-01 15:32 | disposition home or self-care (01) ==
LOC: EDUNIT# 14:35 → ER FS 14:36
DX: R07.89 Other chest pain (principal); F41.9 Anxiety disorder, unspecified; F32.9 Major depressive disorder, single episode, unspecified; G89.29 Other chronic pain; M54.9 Dorsalgia, unspecified; Z79.891 Long term (current) use of opiate analgesic; Z79.899 Other long term (current) drug therapy
CPT/HCPCS: 36415; 71045; 80053; 83735; 84484; 85025; 85610; 85730; 93005; 93041

== ENCOUNTER 2021-03-15 12:55 | Emergency (ER) | payer MEDICAID ==
[~2021-03-15] VITALS: Ht 149 cm; Wt 58.0 kg
[2021-03-15 14:05] LABS: BASOPHILS % (AUTO) 1 % (0-10); EOSINOPHILS % (AUTO) 0 % (0-10); HEMATOCRIT 38 % (35-52); HEMOGLOBIN 12.4 g/dL (11.5-16.0); LYMPHOCYTES # (AUTO) 1.3 X 10^3 (1.0-4.0); LYMPHOCYTES % (AUTO) 17 % (12-44); MEAN CORPUSCULAR HEMOGLOBIN 29 pg (25-34); MEAN CORPUSCULAR HGB CONC 33 g/dL (32-36); MEAN CORPUSCULAR VOLUME 87 fL (80-99); MEAN PLATELET VOLUME 10.8 fL (9.0-12.2); MONOCYTES # (AUTO) 0.6 X 10^3 (0.0-1.0); MONOCYTES % (AUTO) 8 % (0-12); NEUTROPHILS # (AUTO) 5.4 X 10^3 (1.8-7.8); NEUTROPHILS % (AUTO) 74 % (42-75); PLATELET COUNT 284 10^3/uL (130-400); WHITE BLOOD COUNT 7.4 10^3/uL (4.3-11.0)
[2021-03-15 14:11] LABS: ALBUMIN 4.2 GM/DL (3.2-4.5)
[2021-03-15 14:12] LABS: POTASSIUM 3.7 MMOL/L (3.6-5.0)
[2021-03-15 14:14] LABS: TOTAL PROTEIN 7.4 GM/DL (6.4-8.2)
[2021-03-15 14:16] LABS: BILIRUBIN,TOTAL 0.4 MG/DL (0.1-1.0)
[2021-03-15 14:18] LABS: CREATININE SERUM 0.73 MG/DL (0.60-1.30)
[2021-03-15] MEDS ORDERED: FAMOTIDINE 20MG/2ML IV (PEPCID) IVP ONE (14:30)
[2021-03-15] MEDS ORDERED: fentaNYL INJ 100 MCG/2 ML AMP IVP ONE (14:30)
[2021-03-15] MEDS ORDERED: ONDANSETRON 4 MG/2 ML (SDV) Z0FRAN IVP ONE ×2 (14:30→17:00)
[2021-03-15 14:39] LABS: BILIRUBIN,URINE NEGATIVE (NEGATIVE); CLARITY,URINE CLEAR; COLOR,URINE YELLOW; GLUCOSE, URINE (UA) NEGATIVE (NEGATIVE); KETONES,URINE TRACE (NEGATIVE); LEUKOCYTE ESTERASE ,URINE TRACE (NEGATIVE); NITRITE,URINE NEGATIVE (NEGATIVE); PROTEIN,URINE NEGATIVE (NEGATIVE)
[2021-03-15 14:46] LABS: AMORPHOUS SEDIMENT,UR MOD AMOR URATES /LPF; BACTERIA,URINE MODERATE /HPF; RBC,URINE 0-2 /HPF
[2021-03-15 14:48] LABS: LIPASE 13 U/L (8-78)
[2021-03-15] MEDS ORDERED: morphine INJ 10 MG/ML 1ML (SYR OR VIAL) IVP STA (15:11)
[2021-03-15] MEDS ORDERED: diphenhydrAMINE 50 MG/ML INJ (BENADRYL) IVP ONE (15:15)
[2021-03-15] MEDS ORDERED: NS 100 ML (IVPB) BAG IV ONE (15:30)
[2021-03-15] MEDS ORDERED: IOHEXOL 350 MG/ML 100 ML (OMNIPAQUE 350) VIAL IV ONE (15:30)
[2021-03-15] MEDS ORDERED: CATHETER FLUSH 10 ML SYR IV PRN (15:30)
[2021-03-15] MEDS ORDERED: HOLD METFORMIN - RECEIVED CONTRAST 20 ML VIAL IV SCH (15:30)
--- NOTE | 2021-03-15 15:43 | Diagnostic Imaging Report ---
INDICATION: Right lower quadrant pain. TECHNIQUE: Multiple contiguous axial images were obtained through the abdomen and pelvis after administration of intravenous contrast. Auto Exposure Controls were utilized during the CT exam to meet ALARA standards for radiation dose reduction. All CT scans use one or more of the following dose optimizing techniques: Automated exposure control, MA and/or KvP adjustment based on patient size and exam type or iterative reconstruction. Comparison made to 09/20/2020. FINDINGS: The visualized portions of the lung bases are clear. There were no pleural fluid collections. There is no free intraperitoneal air. The liver shows no discrete focal lesion. Focal fatty change seen near the falciform ligament on the prior study is no longer apparent. The spleen, adrenals, and pancreas are normal. The kidneys bilaterally are unremarkable. There is no retroperitoneal mass or adenopathy. There is no ascites or abnormal fluid collection. Visualized bowel loops show no sign of obstruction. There is no pelvic mass or lymphadenopathy. There appears to be a collapsed cyst with enhancing borders in the right adnexal region, measuring about 1.5 cm. This finding is new compared to the prior study. There are surgical clips in the pelvis. IMPRESSION: Small collapsed cyst in the right adnexal region. No evidence of abscess or abdominal or pelvic mass or focal inflammatory process. Appendix is not well seen, but there is no inflammatory reaction in its expected location. Dictated by: Dictated on workstation # [id number]
--- NOTE | 2021-03-15 16:54 | ED Abdominal Pain ---
General Chief Complaint: Abdominal/GI Problems Stated Complaint: ABD PAIN, DIZZINESS Nursing Triage Note: ARRIVED VIA AMB TO ROOM 05 WITH COMPLAINTS OF N/V ABD APIN X2 DAYS. STATES SHE FEELS LIGHT HEADED AND HAVING CHEST PRESSURE AT TIMES ET POINTING TO EPIGASTRIC REGION. Source of Information: Patient Exam Limitations: No Limitations History of Present Illness Date Seen by Provider: Mar 15, 2021 Time Seen by Provider: 14:15 Initial Comments This 30-year-old young lady presents to the emergency room with significant abdominal pain, nausea, lightheadedness, and pain that radiates from the abdomen up into the lower chest. Symptoms have been present for 3 days. The nausea just started this morning. She denies any constipation or diarrhea but notes loose stools. No fever or chills. No urinary or vaginal symptoms. She did have some brown noted on wiping after urination on March 11 which is unusual for this stage in her cycle. Last menstrual period was February 24. She has been under work-up for gastrointestinal issues in the recent past. She had endoscopy performed in January in [place] which she reports showed diverticular disease. Biopsies were taken and she has yet to review reports. She also noted gastric ulcers were seen as well as thickening of the bowel wall. She has history of endometriosis and IBS. She has had abdominal surgeries including cholecystectomy, tubal ligation, exploratory surgery for endometriosis, umbilical hernia repair x3, and tonsillectomy. Allergies and Home Medications Allergies Coded Allergies: clindamycin (Verified Allergy, Intermediate, oral blisters, SOB, 07/29/20) famotidine (Verified Allergy, Mild, Hives, 03/15/21) Given at the same time as fentanyl. Hives the IV site. fentanyl (Verified Allergy, Mild, Hives, 03/15/21) Given simultaneously with Pepcid. Hives at IV site. cinnamon (Verified Allergy, Unknown, 07/29/20) tramadol (Verified Allergy, Unknown, 01/07/21) Patient Home Medication List Home Medication List Reviewed: Yes Ciprofloxacin HCl (Ciprofloxacin HCl) 500 Mg Tablet, 500 MG PO BID Prescribed by: IRINEO THORPE on 09/20/20 4732 Clonazepam (Clonazepam) 1 Mg Tablet, (Reported) Entered as Reported by: STEPHANIE NIETO on 09/15/20 7893 Dicyclomine HCl (Dicyclomine HCl) 20 Mg Tablet, 20 MG PO QID PRN for abdominal pain/cramping Prescribed by: IRINEO THORPE on 09/20/20 225 Famotidine (Pepcid) 20 Mg Tablet, 20 MG PO BID Prescribed by: NAOMI PAL on 01/07/21 1248 Hydrocodone/Acetaminophen (Hydrocodone-Acetamin 5-325 mg) 1 Each Tablet, 1 TAB PO Q4H PRN for PAIN-SEVERE (8-10) Prescribed by: IRINEO THORPE on 09/15/20 1507 Hydrocodone/Acetaminophen (Hydrocodone-Acetamin 10-325 mg) 1 Each Tablet, 1 EACH PO Q6H PRN for PAIN-SEVERE (8-10) Prescribed by: IRINEO THORPE on 09/20/20 225 Ibuprofen (Ibuprofen) 200 Mg Tablet, 400-600 MG PO Q8H PRN for PAIN-MILD (1-4), (Reported) Entered as Reported by: SKYLAR MASSEY on 07/30/20 1048 Metronidazole (Metronidazole) 500 Mg Tablet, 500 MG PO BID Prescribed by: IRINEO THORPE on 09/20/20 225 Nitrofurantoin Monohyd/M-Cryst (Macrobid 100 mg Capsule) 100 Mg Capsule, 1 TAB PO BID Prescribed by: NAOMI PAL on 01/23/21 0817 Oxycodone HCl/Acetaminophen (Percocet 5-325 mg Tablet) 1 Each Tablet, 1-2 TAB PO Q4H PRN for PAIN-BREAKTHROUGH Prescribed by: DANIELA FORD on 03/15/21 1711 Pantoprazole Sodium (Pantoprazole Sodium) 40 Mg Tablet.dr, 40 MG PO DAILY, (Reported) Entered as Reported by: SKYLAR MASSEY on 07/30/20 1048 Polyethylene Glycol 3350 (Miralax) 17 Gm Powd.pack, 17 GM PO BID Prescribed by: TISHA FLORENTINO on 08/05/20 1228 Prochlorperazine Maleate (Compazine) 10 Mg Tablet, 10 MG PO Q8H Prescribed by: NAOMI PAL on 01/07/21 1248 Promethazine HCl (Promethazine Tablet) 25 Mg Tablet, (Reported) Entered as Reported by: STEPHANIE NIETO on 09/15/20 1443 Promethazine HCl (Promethazine Tablet) 25 Mg Tablet, 25 MG PO Q8H PRN for NAUSEA/VOMITING Prescribed by: IRINEO TYSONRT on 09/20/20 3861 Psyllium Husk/Aspartame (Metamucil Fiber Singles Packet) 3.4 Gm Powd.pack, 1 PACKET PO DAILY, (Reported) Entered as Reported by: SKYLAR MASSEY on 07/30/20 1048 Trazodone HCl (Trazodone HCl) 50 Mg Tablet, (Reported) Entered as Reported by: STEPHANIE NIETO on 09/15/20 1443 Review of Systems Review of Systems Constitutional: no symptoms reported EENTM: No Symptoms Reported Respiratory: No Symptoms Reported Cardiovascular: No Symptoms Reported Gastrointestinal: See HPI Genitourinary: See HPI Musculoskeletal: no symptoms reported Skin: no symptoms reported Psychiatric/Neurological: No Symptoms Reported Endocrine: No Symptoms Reported Hematologic/Lymphatic: No Symptoms Reported Past Dlkxemj-Vnhngs-Njlnkh Hx Patient Social History Tobacco Use?: No Substance use?: No Alcohol Use?: No Immunizations Up To Date Tetanus Booster (TDap): More than 5yrs PED Vaccines UTD: Yes Seasonal Allergies Seasonal Allergies: No Past Medical History Surgeries: Yes (Umbilical herniorrhaphy 07/04/12,D&C, ENDOMETRIOSIS SCRAPING, d&c, Mesh Tommy) Abdominal, Adenoidectomy, Appendectomy, Bowel Surgery, Gallbladder, To nsillectomy, Tubal Ligation Respiratory: No Cardiac: No Neurological: No (only if pt takes tramadol. 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 No Pertinent Family Hx Physical Exam Vital Signs Vital Signs - First Documented 03/15/21 13:40 Temp 36.3 Pulse 75 Resp 16 B/P (MAP) 115/75 (88) Pulse Ox 98 O2 Delivery Room Air Capillary Refill : Less Than 3 Seconds Height/Weight/BMI Height: 4'10.00" Weight: 125lbs. 0oz. 56.510758bo; 26.00 BMI Method:Stated General Appearance: WD/WN, mild distress HEENT: PERRL/EOMI, normal ENT inspection Neck: normal inspection Respiratory: lungs clear, normal breath sounds, no respiratory distress Cardiovascular: regular rate, rhythm, no edema, no murmur Gastrointestinal: normal bowel sounds, soft; No distended; tenderness (Generalized most intense and obvious in the right lower quadrant) Extremities: normal inspection, no pedal edema Neurologic/Psychiatric: admitted attorneys II-XII nml as tested, no motor/sensory deficits, alert, normal mood/affect, oriented x 3 Skin: normal color, warm/dry Progress/Results/Core Measures Results/Orders Lab Results Laboratory Tests Test 03/15/21 13:54 03/15/21 14:30 Range/Units White Blood Count 7.4 4.3-11.0 10^3/uL Red Blood Count 4.34 3.80-5.11 10^6/uL Hemoglobin 12.4 11.5-16.0 g/dL Hematocrit 38 35-52 % Mean Corpuscular Volume 87 80-99 fL Mean Corpuscular Hemoglobin 29 25-34 pg Mean Corpuscular Hemoglobin Concent 33 32-36 g/dL Red Cell Distribution Width 14.1 10.0-14.5 % Platelet Count 284 130-400 10^3/uL Mean Platelet Volume 10.8 9.0-12.2 fL Immature Granulocyte % (Auto) 0 % Neutrophils (%) (Auto) 74 42-75 % Lymphocytes (%) (Auto) 17 12-44 % Monocytes (%) (Auto) 8 0-12 % Eosinophils (%) (Auto) 0 0-10 % Basophils (%) (Auto) 1 0-10 % Neutrophils # (Auto) 5.4 1.8-7.8 X 10^3 Lymphocytes # (Auto) 1.3 1.0-4.0 X 10^3 Monocytes # (Auto) 0.6 0.0-1.0 X 10^3 Eosinophils # (Auto) 0.0 0.0-0.3 10^3/uL Basophils # (Auto) 0.0 0.0-0.1 10^3/uL Immature Granulocyte # (Auto) 0.0 0.0-0.1 10^3/uL Erythrocyte Sedimentation Rate 13 0-20 MM/HR Sodium Level 137 135-145 MMOL/L Potassium Level 3.7 3.6-5.0 MMOL/L Chloride Level 107 98-107 MMOL/L Carbon Dioxide Level 20 L 21-32 MMOL/L Anion Gap 10 5-14 MMOL/L Blood Urea Nitrogen 10 7-18 MG/DL Creatinine 0.73 0.60-1.30 MG/DL Estimat Glomerular Filtration Rate 94 BUN/Creatinine Ratio 14 Glucose Level 91 70-105 MG/DL Calcium Level 9.0 8.5-10.1 MG/DL Corrected Calcium 8.8 8.5-10.1 MG/DL Total Bilirubin 0.4 0.1-1.0 MG/DL Aspartate Amino Transf (AST/SGOT) 15 5-34 U/L Alanine Aminotransferase (ALT/SGPT) 10 0-55 U/L Alkaline Phosphatase 61 40-136 U/L Troponin I < 0.028 <0.028 NG/ML C-Reactive Protein High Sensitivity 0.14 0.00-0.50 MG/DL Total Protein 7.4 6.4-8.2 GM/DL Albumin 4.2 3.2-4.5 GM/DL Lipase 13 8-78 U/L Serum Test, Qualitative NEGATIVE NEGATIVE Urine Color YELLOW Urine Clarity CLEAR Urine pH 6.0 5-9 Urine Specific [place] >=1.030 1.016-1.022 Urine Protein NEGATIVE NEGATIVE Urine Glucose (UA) NEGATIVE NEGATIVE Urine Ketones TRACE H NEGATIVE Urine Nitrite NEGATIVE NEGATIVE Urine Bilirubin NEGATIVE NEGATIVE Urine Urobilinogen 0.2 < = 1.0 MG/DL Urine Leukocyte Esterase TRACE H NEGATIVE Urine RBC (Auto) TRACE-I H NEGATIVE Urine RBC 0-2 /HPF Urine WBC 2-5 /HPF Urine Squamous Epithelial Cells 5-10 /HPF Urine Crystals PRESENT H /LPF Urine Amorphous Sediment MOD OLIVERIO URATES H /LPF Urine Bacteria MODERATE H /HPF Urine Casts NONE /LPF Urine Mucus MODERATE H /LPF Urine Culture Indicated YES Micro Results Microbiology 03/15/21 Urine Culture - Final, Complete >=3 Gram Positive Isolates My Orders Orders - DANIELA CARTER MD Cbc With Automated Diff (03/15/21 13:57) Comprehensive Metabolic Panel (03/15/21 13:57) Hcg,Qualitative Serum (03/15/21 13:57) Ua Culture If Indicated (03/15/21 13:57) Ed Iv/Invasive Line Start (03/15/21 13:57) Hs C Reactive Protein (03/15/21 14:27) Lipase (03/15/21 14:27) Troponin I [place] (03/15/21 14:27) Erythrocyte Sedimentation Rate (03/15/21 14:27) Fentanyl Inj (Sublimaze Injection) (03/15/21 14:30) Famotidine Injection (Pepcid Injection) (03/15/21 14:30) Ondansetron Injection (Zofran Injectio (03/15/21 14:30) Urine Culture (03/15/21 14:30) Ct Abdomen/Pelvis W (03/15/21 15:11) Morphine Injection (Morphine Injection (03/15/21 15:11) Diphenhydramine Injection (Benadryl Inje (03/15/21 15:15) Iohexol Injection (Omnipaque 350 Mg/Ml 1 (03/15/21 15:30) Received Contrast (Hold Metformin- Contr (03/15/21 15:30) Sodium Chloride Flush (Catheter Flush Sy (03/15/21 15:30) Ns (Ivpb) (Sodium Chloride 0.9% Ivpb Bag (03/15/21 15:30) Ondansetron Injection (Zofran Injectio (03/15/21 17:00) Ekg Tracing (03/15/21 14:13) Medications Given in ED Vital Signs/I&O 03/15/21 03/15/21 13:40 17:18 Temp 36.3 Pulse 75 74 Resp 16 16 B/P (MAP) 115/75 (88) 102/74 Pulse Ox 98 98 O2 Delivery Room Air Room Air Blood Pressure Mean: 88 Progress Progress Note : Progress Note Patient was initially treated with Zofran, Pepcid, and fentanyl. She developed hives at the IV site after administration of these medications. She denies ever having problems with any of these medications in the past. The reaction was l ikely due to Pepcid or fentanyl as she has been taking Zofran at home without problem. She received Benadryl which resolved the hives as well as morphine which improved her pain. Lab work-up was unremarkable. Due to her history of multiple GI pathologies and the intensity of her pain, we discussed options for imaging which included potentially pelvic ultrasound or CT of the abdomen and pelvis with contrast. After discussing risks and benefits, patient is agreeable to CT scan. Presence of appendix is questionable. She reports appendix had not been seen on imaging but she is unclear based on what she has been told by surgeons in the past whether her appendix has actually been removed or not. CT scan revealed a collapsed cystic structure in the right adnexa which would correlate well with the location of greatest pain. This perhaps represents a ruptured or collapsing ovarian cyst. No other significant pathology was identified. Appendix was not seen. There were postsurgical changes in the right lower quadrant but no inflammatory changes to suggest appendicitis or other infectious etiology. Patient was ultimately discharged home in stable condition. Fentanyl and Pepcid were added to her allergy list. Departure Impression Primary Impression: Ruptured ovarian cyst Additional Impressions: Right lower quadrant pain Allergic reaction caused by a drug Qualified Codes: T78.40XA - Allergy, unspecified, initial encounter Disposition: 01 HOME, SELF-CARE Condition: Improved Departure-Patient Inst. Decision time for Depature: 16:53 Referrals: [facility]/ (PCP) Primary Care Physician LUIS QUEZADA APRN (Family) Primary Care Physician Patient Instructions: Ovarian Cyst (DC), Severe Abdominal Pain, Adult (DC) Add. Discharge Instructions: Based on history and CT scan results, it appears your pain is most likely related to a ruptured ovarian cyst. Because of your problems with ulcers and other bowel issues, do not take NSAIDs such as ibuprofen or naproxen. Instead, use Tylenol (acetaminophen) for mild p ain or Percocet as prescribed for more severe pain. Drink plenty of clear liquids to stay well-hydrated. Follow-up with your primary care provider soon as possible. Call with questions or concerns. Return to the ER if you have worsening symptoms. All discharge instructions reviewed with patient and/or family. Voiced understanding. Scripts Oxycodone HCl/Acetaminophen (Percocet 5-325 mg Tablet) 1 Each Tablet 1-2 TAB PO Q4H PRN for PAIN-BREAKTHROUGH MDD 6 TABS, #15 TAB Prov: DANIELA CARTER MD 03/15/21 Copy Copies To 1: ALEJO WHEATLEY DO Copies To 2: STEPHANIE METCALF MD, JOSHUA T MD Mar 15, 2021 16:54
[2021-03-15] MEDS ORDERED: OXYC1TAB87 PO (17:10)
[2021-03-15 17:18] VITALS: BP 102/74
== END 2021-03-15 17:18 | disposition home or self-care (01) ==
LOC: EDUNIT# 12:55 → ER 12:57
DX: N83.291 Other ovarian cyst, right side (principal); T88.7XXA Unspecified adverse effect of drug or medicament, initial encounter; F41.9 Anxiety disorder, unspecified; F32.9 Major depressive disorder, single episode, unspecified; Z87.19 Personal history of other diseases of the digestive system; Z90.49 Acquired absence of other specified parts of digestive tract; Z88.1 Allergy status to other antibiotic agents; Z88.5 Allergy status to narcotic agent; Z88.8 Allergy status to other drugs, medicaments and biological substances; Z79.899 Other long term (current) drug therapy; Z32.02 Encounter for pregnancy test, result negative
CPT/HCPCS: 36415; 74177; 80053; 81000; 83690; 84484; 84703; 85025; 85652; 86141; 87088; 93005

== ENCOUNTER 2021-04-18 09:44 | Emergency (ER) | payer MEDICAID ==
[~2021-04-18] VITALS: Ht 149 cm; Wt 59.0 kg
[2021-04-18 09:57] VITALS: BP_SYST 119
[2021-04-18 10:00] LABS: BASOPHILS # (AUTO) 0.1 10^3/uL (0.0-0.1); BASOPHILS % (AUTO) 0 % (0-10); EOSINOPHILS % (AUTO) 0 % (0-10); HEMATOCRIT 38 % (35-52); HEMOGLOBIN 12.8 g/dL (11.5-16.0); LYMPHOCYTES # (AUTO) 1.2 10^3/uL (1.0-4.0); LYMPHOCYTES % (AUTO) 10 % (12-44); MEAN CORPUSCULAR HEMOGLOBIN 28 pg (25-34); MEAN CORPUSCULAR HGB CONC 33 g/dL (32-36); MEAN CORPUSCULAR VOLUME 85 fL (80-99); MEAN PLATELET VOLUME 10.7 fL (9.0-12.2); MONOCYTES # (AUTO) 0.7 10^3/uL (0.0-1.0); MONOCYTES % (AUTO) 6 % (0-12); NEUTROPHILS # (AUTO) 9.5 10^3/uL (1.8-7.8); NEUTROPHILS % (AUTO) 83 % (42-75); PLATELET COUNT 330 10^3/uL (130-400); WHITE BLOOD COUNT 11.5 10^3/uL (4.3-11.0)
[2021-04-18] MEDS ORDERED: morphine INJ 10 MG/ML 1ML (SYR OR VIAL) IVP STA ×2 (10:04→11:45)
[2021-04-18] MEDS ORDERED: PANTOPRAZOLE 40 MG (PROTONIX) VIAL IV STA (10:04)
[2021-04-18] MEDS ORDERED: KETOROLAC 30 MG/ML VIAL IVP STA (10:04)
[2021-04-18] MEDS ORDERED: ONDANSETRON 4 MG/2 ML (SDV) Z0FRAN IV ONE (10:15)
[2021-04-18] MEDS ORDERED: NS IV 1000 ML 1,000 ML IV SCH (10:15)
--- NOTE | 2021-04-18 10:16 | ED General ---
General Chief Complaint: COVID19 Suspect/Confirmed Stated Complaint: VOMITING; GEN PAIN Nursing Triage Note: Patient has presented to ER with cc of vomiting, sore throat, body aches, headache, and a cough that started last night. Source of Information: Patient, Old Records History of Present Illness Date Seen by Provider: Apr 18, 2021 Time Seen by Provider: 09:46 Initial Comments 30-year-old female presenting with complaints of generalized body aches, headac he, cough, sore throat, nausea and vomiting, loose stools since last night. She states that she has had hot and cold flashes but has taken her temperature and not had a fever. She denies pain with urination but states that she has had decreased output. She does have a history of irritable bowel as well as endometriosis. She had tried taking Compazine at home for nausea and was unable to keep it down. She has not had any ill contact exposures that she is aware of. She does have a history of chronic abdominal pain and multiple ER and clinic visits for similar symptoms in the past. Timing/Duration: 12 Hours Severity: Severe Modifying Factors: worse with Eating (Trying to eat or drink anything causes nausea and vomiting) Associated Systoms: No Chest Pain; Cough; No Diaphoresis; Fever/Chills (Sub jective hot and cold flashes but when she took her temperature it was never febrile), Headaches; No Loss of Appetite; Malaise, Nausea/Vomiting; No Rash, No Seizure, No Shortness of Air, No Syncope, No Weakness Allergies and Home Medications Allergies Coded Allergies: clindamycin (Verified Allergy, Intermediate, oral blisters, SOB, 07/29/20) famotidine (Verified Allergy, Mild, Hives, 03/15/21) Given at the same time as fentanyl. Hives the IV site. fentanyl (Verified Allergy, Mild, Hives, 03/15/21) Given simultaneously with Pepcid. Hives at IV site. cinnamon (Verified Allergy, Unknown, 07/29/20) tramadol (Verified Allergy, Unknown, 01/07/21) Patient Home Medication List Home Medication List Reviewed: Yes Ciprofloxacin HCl (Ciprofloxacin HCl) 500 Mg Tablet, 500 MG PO BID Prescribed by: IRINEO THORPE on 09/20/20 4425 Clonazepam (Clonazepam) 1 Mg Tablet, (Reported) Entered as Reported by: STEPHANIE NIETO on 09/15/20 1443 Dicyclomine HCl (Dicyclomine HCl) 20 Mg Tablet, 20 MG PO QID PRN for abdominal pain/cramping Prescribed by: IRINEO THORPE on 09/20/20 225 Famotidine (Pepcid) 20 Mg Tablet, 20 MG PO BID Prescribed by: NAOMI PAL on 01/07/21 1248 Hydrocodone/Acetaminophen (Hydrocodone-Acetamin 5-325 mg) 1 Each Tablet, 1 TAB PO Q4H PRN for PAIN-SEVERE (8-10) Prescribed by: IRINEO THORPE on 09/15/20 1507 Hydrocodone/Acetaminophen (Hydrocodone-Acetamin 10-325 mg) 1 Each Tablet, 1 EACH PO Q6H PRN for PAIN-SEVERE (8-10) Prescribed by: IRINEO THORPE on 09/20/20 225 Ibuprofen (Ibuprofen) 200 Mg Tablet, 400-600 MG PO Q8H PRN for PAIN-MILD (1-4), (Reported) Entered as Reported by: SKYLAR MASSEY on 07/30/20 1048 Metronidazole (Metronidazole) 500 Mg Tablet, 500 MG PO BID Prescribed by: IRINEO THORPE on 09/20/20 225 Nitrofurantoin Monohyd/M-Cryst (Macrobid 100 mg Capsule) 100 Mg Capsule, 1 TAB PO BID Prescribed by: NAOMI PAL on 01/23/21 0817 Ondansetron (Ondansetron Odt) 4 Mg Tab.rapdis, 4 MG PO Q6H PRN for NAUSEA/VOMITING Prescribed by: IRINEO THORPE on 04/18/21 1155 Oxycodone HCl/Acetaminophen (Percocet 5-325 mg Tablet) 1 Each Tablet, 1-2 TAB PO Q4H PRN for PAIN-BREAKTHROUGH Prescribed by: DANIELA FORD on 03/15/21 1711 Oxycodone HCl/Acetaminophen (Oxycodone-Acetaminophen 5-325) 1 Each Tablet, 1 EACH PO Q4H PRN for PAIN-SEVERE (8-10) Prescribed by: IRINEO THORPE on 04/18/21 1156 Pantoprazole Sodium (Pantoprazole Sodium) 40 Mg Tablet.dr, 40 MG PO DAILY, (Reported) Entered as Reported by: SKYLAR MASSEY on 07/30/20 1048 Polyethylene Glycol 3350 (Miralax) 17 Gm Powd.pack, 17 GM PO BID Prescribed by: TISHA FLORENTINO on 08/05/20 1228 Prochlorperazine Maleate (Compazine) 10 Mg Tablet, 10 MG PO Q8H Prescribed by: NAOMI PAL on 01/07/21 1248 Promethazine HCl (Promethazine Tablet) 25 Mg Tablet, (Reported) Entered as Reported by: STEPHANIE NIETO on 09/15/20 1443 Promethazine HCl (Promethazine Tablet) 25 Mg Tablet, 25 MG PO Q8H PRN for NAUSEA/VOMITING Prescribed by: IRINEO THORPE on 09/20/20 2255 Psyllium Husk/Aspartame (Metamucil Fiber Singles Packet) 3.4 Gm Powd.pack, 1 PACKET PO DAILY, (Reported) Entered as Reported by: SKYLAR MASSEY on 07/30/20 1048 Trazodone HCl (Trazodone HCl) 50 Mg Tablet, (Reported) Entered as Reported by: STEPHANIE NIETO on 09/15/20 1443 Review of Systems Review of Systems Constitutional: see HPI EENTM: nose congestion, throat pain (Continued throat pain since having strep throat 2 weeks ago. States that it never cleared up despite taking amoxicillin antibiotic); No ear discharge, No ear pain, No blurred vision, No vision loss, No epistaxis Respiratory: cough; No phlegm, No stridor, No wheezing Cardiovascular: No chest pain, No palpitations Gastrointestinal: abdominal pain (Diffuse abdominal pain nausea and vomiting and loose stools since last night), diarrhea, nausea, vomiting Genitourinary: decreased output; No dysuria, No frequency Musculoskeletal: muscle pain (Generalized body aches since last night) Skin: No rash Psychiatric/Neurological: Anxiety, Headache Past Docratk-Kdqdlj-Ttcjzk Hx Patient Social History Tobacco Use?: No Use of E-Cig and/or Vaping dev: No Substance use?: No Alcohol Use?: No Immunizations Up To Date Tetanus Booster (TDap): More than 5yrs PED Vaccines UTD: Yes Seasonal Allergies Seasonal Allergies: No Past Medical History Surgery/Hospitalization HX: IBS, endometriosis, chronic abdominal pain Surgeries: Yes (Umbilical herniorrhaphy 07/04/12,D&C, ENDOMETRIOSIS SCRAPING, d&c, Mesh Tommy) Abdominal, Adenoidectomy, Appendectomy, Bowel Surgery, Gallbladder, Tonsillectomy, Tubal Ligation Respiratory: No Cardiac: No Neurological: No (only if pt takes tramadol. last seizere 04/2011) Reproductive Disorders: Yes (CPP) Female Reproductive Disorders: Endometriosis, Ovarian Cyst [employer] History: Tubal Ligation Sexually Transmitted Disease: No HIV/AIDS: No Genitourinary: Yes Kidney Infection, UTI-Chronic Gastrointestinal: Yes (umbilical hernia removed 11/25/18) Abdominal Hernia, Gall Bladder Disease Musculoskeletal: No Chronic Back Pain Endocrine: No HEENT: No Cancer: No Psychosocial: Yes Anxiety, Depression Integumentary: No Blood Disorders: No Adverse Reaction/Blood Tranf: No Family Medical History Patient reports no known family medical history. No Pertinent Family Hx Physical Exam Vital Signs Vital Signs - First Documented 04/18/21 09:57 Temp 36.0 Pulse 79 Resp 18 B/P (MAP) 119/ Pulse Ox 97 O2 Delivery Room Air Capillary Refill : Height, Weight, BMI Height: 4'10.00" Weight: 125lbs. 0oz. [id number]; 26.00 BMI Method:Stated General Appearance: No Apparent Distress HEENT: PERRL/EOMI, Pharynx Normal, Moist Mucous Membranes; No Tonsillar Exudate, No Tonsillar Enlargement Neck: Full Range of Motion, Normal Inspection, Non Tender, Supple Respiratory: Chest Non Tender, Lungs Clear, Normal Breath Sounds, No Accessory Muscle Use, No Respiratory Distress Cardiovascular: Regular Rate, Rhythm, No Murmur, Normal Peripheral Pulses Gastrointestinal: Normal Bowel Sounds, No Pulsatile Mass, Soft; No Distended, N o Guarding, No Rebound; Tenderness (Complains of diffuse abdominal tenderness with palpation) Rectal: Deferred Back: No CVA Tenderness, No Vertebral Tenderness Extremity: Normal Capillary Refill, Normal Inspection, No Calf Tenderness, No Pedal Edema Neurologic/Psychiatric: Alert, Oriented x3, health aide II-XII Norm as Tested Skin: Normal Color, Warm/Dry; No Rash Focused Exam Lactate Level 04/18/21 10:05: Lactic Acid Level 1.38 Lactic Acid Level Laboratory Tests Test 04/18/21 10:05 Lactic Acid Level 1.38 MMOL/L (0.50-2.00) Progress/Results/Core Measures Suspected Sepsis SIRS Temperature: Pulse: 79 Respiratory Rate: 18 Laboratory Tests 04/18/21 09:55: White Blood Count 11.5H Blood Pressure 119 / Mean: 04/18/21 10:05: Lactic Acid Level 1.38 Laboratory Tests 04/18/21 09:55: Creatinine 0.66, INR Comment 1.1, Platelet Count 330, Total Bilirubin 0.3 Results/Orders Lab Results Laboratory Tests Test 04/18/21 09:55 04/18/21 10:05 04/18/21 10:07 04/18/21 10:10 Range/Units White Blood Count 11.5 H 4.3-11.0 10^3/uL Red Blood Count 4.54 3.80-5.11 10^6/uL Hemoglobin 12.8 11.5-16.0 g/dL Hematocrit 38 35-52 % Mean Corpuscular Volume 85 80-99 fL Mean Corpuscular Hemoglobin 28 25-34 pg Mean Corpuscular Hemoglobin Concent 33 32-36 g/dL Red Cell Distribution Width 13.5 10.0-14.5 % Platelet Count 330 130-400 10^3/uL Mean Platelet Volume 10.7 9.0-12.2 fL Immature Granulocyte % (Auto) 0 % Neutrophils (%) (Auto) 83 H 42-75 % Lymphocytes (%) (Auto) 10 L 12-44 % Monocytes (%) (Auto) 6 0-12 % Eosinophils (%) (Auto) 0 0-10 % Basophils (%) (Auto) 0 0-10 % Neutrophils # (Auto) 9.5 H 1.8-7.8 10^3/uL Lymphocytes # (Auto) 1.2 1.0-4.0 10^3/uL Monocytes # (Auto) 0.7 0.0-1.0 10^3/uL Eosinophils # (Auto) 0.0 0.0-0.3 10^3/uL Basophils # (Auto) 0.1 0.0-0.1 10^3/uL Immature Granulocyte # (Auto) 0.0 0.0-0.1 10^3/uL Prothrombin Time 14.1 12.2-14.7 SEC INR Comment 1.1 0.8-1.4 Activated Partial Thromboplast Time 30 24-35 SEC Sodium Level 140 135-145 MMOL/L Potassium Level 3.7 3.6-5.0 MMOL/L Chloride Level 105 98-107 MMOL/L Carbon Dioxide Level 21 21-32 MMOL/L Anion Gap 14 5-14 MMOL/L Blood Urea Nitrogen 8 7-18 MG/DL Creatinine 0.66 0.60-1.30 MG/DL Estimat Glomerular Filtration Rate 122 BUN/Creatinine Ratio 12 Glucose Level 116 H 70-105 MG/DL Calcium Level 9.4 8.5-10.1 MG/DL Corrected Calcium 9.1 8.5-10.1 MG/DL Total Bilirubin 0.3 0.1-1.0 MG/DL Aspartate Amino Transf (AST/SGOT) 13 5-34 U/L Alanine Aminotransferase (ALT/SGPT) 15 0-55 U/L Alkaline Phosphatase 68 40-136 U/L Troponin I < 0.30 <0.30 NG/ML C-Reactive Protein < 0.30 <0.50 MG/DL Total Protein 7.6 6.4-8.2 GM/DL Albumin 4.4 3.2-4.5 GM/DL Lipase 23 8-78 U/L Lactic Acid Level 1.38 0.50-2.00 MMOL/L Influenza Type A Antigen NEGATIVE NEGATIVE Influenza Type B Antigen NEGATIVE NEGATIVE Group A Streptococcus Screen NEGATIVE NEGATIVE Urine Color DARK YELLOW Urine Clarity SL CLOUDY Urine pH 6.0 5-9 Urine Specific [place] >=1.030 1.016-1.022 Urine Protein NEGATIVE NEGATIVE Urine Glucose (UA) NEGATIVE NEGATIVE Urine Ketones NEGATIVE NEGATIVE Urine Nitrite NEGATIVE NEGATIVE Urine Bilirubin NEGATIVE NEGATIVE Urine Urobilinogen 0.2 < = 1.0 MG/DL Urine Leukocyte Esterase NEGATIVE NEGATIVE Urine RBC (Auto) NEGATIVE NEGATIVE Urine RBC NONE /HPF Urine WBC 5-10 H /HPF Urine Squamous Epithelial Cells 5-10 /HPF Urine Crystals NONE /LPF Urine Bacteria FEW H /HPF Urine Casts NONE /LPF Urine Mucus LARGE H /LPF Urine Culture Indicated YES My Orders Orders - IRINEO THORPE MD Comprehensive Metabolic Panel (04/18/21 09:49) Lipase (04/18/21 09:49) Ua Culture If Indicated (04/18/21 09:49) Ed Iv/Invasive Line Start (04/18/21 09:49) Cbc With Automated Diff (04/18/21 09:49) Urine Bedside (04/18/21 09:49) Monitor-Rhythm Ecg Trace Only (04/18/21 10:01) Crp Fs (04/18/21 10:01) Troponin I Fs (04/18/21 10:01) Protime With Inr (04/18/21 10:01) Partial Thromboplastin Time (04/18/21 10:01) Ns Iv 1000 Ml (Sodium Chloride 0.9%) (04/18/21 10:15) Ondansetron Injection (Zofran Injectio (04/18/21 10:15) Blood Culture (04/18/21 10:01) Covid 19 Inhouse Test (04/18/21 10:01) Rapid Strep A Screen (04/18/21 10:01) Influenza A & B Antigens (04/18/21 10:01) Lactic Acid Analyzer (04/18/21 10:01) Isolation Central Supply Req (04/18/21 10:01) Ketorolac Injection (Toradol Injection) (04/18/21 10:04) Pantoprazole Injection (Protonix Injecti (04/18/21 10:04) Morphine Injection (Morphine Injection (04/18/21 10:04) Chest 1 View Ap/Pa Only (04/18/21 10:10) Urine Culture (04/18/21 10:10) Ns Iv 1000 Ml (Sodium Chloride 0.9%) (04/18/21 10:55) Ekg Tracing (04/18/21 10:55) Morphine Injection (Morphine Injection (04/18/21 11:45) Ondansetron Injection (Zofran Injectio (04/18/21 11:45) Medications Given in ED Current Medications Medications Dose Ordered Sig/Damion Route Start Time Stop Time Status Last Admin Dose Admin Ondansetron HCl 4 mg ONCE ONCE IV 04/18/21 10:15 04/18/21 10:16 DC 04/18/21 10:14 4 MG Vital Signs/I&O 04/18/21 04/18/21 09:57 12:26 Temp 36.0 Pulse 79 68 Resp 18 18 B/P (MAP) 119/ Pulse Ox 97 97 O2 Delivery Room Air Room Air Capillary Refill : Progress Note #1: Progress Note Obtain labs as well as blood cultures and lactic acid. Urinalysis with urine test to check for signs of infection and look for . Swab of the nose to check for influenza and COVID. Swab of the throat check for strep throat since she states that she had about 2 weeks ago and that it is never completely cleared in terms of her symptoms despite antibiotics. Chest x-ray to evaluate her lungs and chest. Give IV fluids 1 L normal saline for hydration, Zofran 4 mg IV for nausea and vomiting, pantoprazole 40 mg IV for nausea, vomiting, epigastric abdominal pain. Give morphine 4 mg IV for generalized body aches and pain as well as abdominal pain, Toradol 30 mg IV for generalized body aches and pain. Differential diagnosis includes influenza, COVID, strep throat, colitis, diverticulitis, pneumonia, viral syndrome Progress Note #2: Time: 10:44 Progress Note CBC has a white blood cell count at the upper limit of normal at 11.5. Her chemistry panel does not show acute significant abnormality. Her lactic acid is normal at 1.38. Her troponin is less than 0.3. CRP is less than 0.3. Her coags are normal. Her chest x-ray does not show any acute process. Her rapid strep swab is negative. Awaiting influenza results and urinalysis. Progress Note #3: Time: 11:06 Progress Note Urinalysis shows concentration with elevated specific gravity and has some white blood cells and bacteria. The lab reflexed to a culture based on these findings . The influenza was negative for A and B. Patient was complaining of pain in her chest still despite the medicines. ECG obtained and does not show any acute process. Troponin and CRP are both <0.3. Progress Note #4: Time: 11:46 Progress Note Patient updated about results and she states that her nausea and pain was doing better. She has had no emesis here in the ED. Her pain seems to come and go at this point instead of being steady and constant. She does have some chills now. Advised that her urine had shown some white blood cells and bacteria but patient denies UTI symptoms so will defer antibiotic for now since she just came off of amoxicillin. If the culture shows that she does need an antibiotic will call that in to pharmacy in a day or two when the culture comes back. 2nd Liter of NS for hydration finished infusing while I spoke with pt about findings and plan. Will give additional Zofran and Morphine dose and then discharge to home and send with note for work as she should quarantine until her Covid result comes back negative or if it is positive quarantine for the next 10 days. ECG Initial ECG Impression Date: Apr 18, 2021 Initial ECG Impression Time: 10:53 Initial ECG Rate: 79 Initial ECG Rhythm: Normal Sinus Initial ECG Comparisson: Unchanged Comment Normal sinus rhythm with a heart rate of 79 bpm. MT interval 134 ms. QT interval 385 ms with a QTc interval 442 ms. There is a left axis deviation. There is no acute ST elevation. There is artifact on the tracing. Overall this appears similar to prior tracings in the system. Diagnostic Imaging Diagonstic Imaging: Xray Plain Films/CT/US/NM/MRI: chest Comments NAME: CAM ESCOBEDO MED REC#: [id number] PT STATUS: REG ER : 1990 PHYSICIAN: IRINEO THORPE MD ADMIT DATE: 04/18/21/ER FS Draft Date of Exam:04/18/21 CHEST 1 VIEW AP/PA ONLY INDICATION: Covid 19 symptoms. TIME OF EXAM: 10:18 AM. COMPARISON: 03/01/2021. FINDINGS: The heart size is normal. The pulmonary vascularity is unremarkable. The lungs are clear. No infiltrate, effusion, or pneumothorax is detected. IMPRESSION: No acute cardiopulmonary process is detected. The report was faxed to Infection Control by [email or web address]@10:47 AM. Dictated on workstation # [id number] Dict: 04/18/21 1032 Trans: 04/18/21 1048 [id number] Interpreted by: BHARATH GOMEZ MD Electronically signed by: Reviewed: Reviewed by Me Departure Impression Primary Impression: Nausea vomiting and diarrhea Additional Impressions: Generalized body aches Person under investigation for COVID-19 Bacteriuria Cough Acute viral syndrome Dehydration Disposition: 01 HOME, SELF-CARE Condition: Stable Departure-Patient Inst. Decision time for Depature: 11:57 Referrals: LUIS QUEZADA APRN (PCP) Primary Care Physician [facility] (Family) Primary Care Physician Patient Instructions: COVID-19 Tests, COVID-19 ED, Nausea and Vomiting, Adult ED, Cough, Adult ED, Dehydration, Adult ED Add. Discharge Instructions: Try to keep sipping on fluids and drink plenty of water and electrolyte drinks to help stay hydrated. Continue with the dissolving nausea tablets to help keep your stomach settled. Quarantine and isolate until you have a negative Covid result or at least until your symptoms have all resolved. Once the swab from today comes back with results for your Covid test you will get a call. Follow-up through the clinic for continued concerns. If the urine from today does grow out a bacteria does show that you have a UTI then in 2 to 3 days you will get a call so that an antibiotic could be called in for you. All discharge instructions reviewed with patient and/or family. Voiced understanding. Scripts Oxycodone HCl/Acetaminophen (Oxycodone-Acetaminophen 5-325) 1 Each Tablet 1 EACH PO Q4H PRN for PAIN-SEVERE (8-10) MDD 6 for 3 Days, #15 TAB 0 Refills Prov: IRINEO THORPE MD 04/18/21 Ondansetron (Ondansetron Odt) 4 Mg Tab.rapdis 4 MG PO Q6H PRN for NAUSEA/VOMITING for 5 Days, #20 TAB 0 Refills Prov: IRINEO THORPE MD 04/18/21 Work/School Note: Work Release Form Date Seen in the Emergency Department: Apr 18, 2021 Return to Work: Apr 21, 2021 Restrictions: Return-No Fever (24hrs), Return-No Vomiting(24hrs) Other Restrictions Listed Below: Return Apr 21 if Covid Neg, If Positive then Return Apr 27 IRINEO THORPE MD Apr 18, 2021 10:16
[2021-04-18 10:18] LABS: INR 1.1 (0.8-1.4); PROTHROMBIN TIME PATIENT 14.1 SEC (12.2-14.7)
[2021-04-18 10:23] LABS: BILIRUBIN,URINE NEGATIVE (NEGATIVE); CLARITY,URINE SL CLOUDY; GLUCOSE, URINE (UA) NEGATIVE (NEGATIVE); KETONES,URINE NEGATIVE (NEGATIVE); LEUKOCYTE ESTERASE ,URINE NEGATIVE (NEGATIVE); NITRITE,URINE NEGATIVE (NEGATIVE); PROTEIN,URINE NEGATIVE (NEGATIVE)
[2021-04-18 10:32] LABS: ALBUMIN 4.4 GM/DL (3.2-4.5); BILIRUBIN,TOTAL 0.3 MG/DL (0.1-1.0); CALCIUM 9.4 MG/DL (8.5-10.1); CREATININE SERUM 0.66 MG/DL (0.60-1.30); POTASSIUM 3.7 MMOL/L (3.6-5.0); TOTAL PROTEIN 7.6 GM/DL (6.4-8.2)
--- NOTE | 2021-04-18 10:48 | Diagnostic Imaging Report ---
INDICATION: Covid 19 symptoms. TIME OF EXAM: 10:18 AM. COMPARISON: 03/01/2021. FINDINGS: The heart size is normal. The pulmonary vascularity is unremarkable. The lungs are clear. No infiltrate, effusion, or pneumothorax is detected. IMPRESSION: No acute cardiopulmonary process is detected. The report was faxed to Infection Control by [email or web address]@10:47 AM. Dictated by: Dictated on workstation # [id number]
[2021-04-18 10:49] LABS: BACTERIA,URINE FEW /HPF; COLOR,URINE DARK YELLOW
[2021-04-18] MEDS ORDERED: NS IV 1000 ML 1,000 ML IV STA (10:55)
[2021-04-18] MEDS ORDERED: ONDANSETRON 4 MG/2 ML (SDV) Z0FRAN IVP STA (11:45)
[2021-04-18] MEDS ORDERED: ONDA4TAB11 PO (11:55)
[2021-04-18] MEDS ORDERED: OXYC1TAB11 PO (11:55)
== END 2021-04-18 12:20 | disposition home or self-care (01) ==
LOC: EDUNIT# 09:44 → ER FS 09:45
DX: B34.9 Viral infection, unspecified (principal); E86.0 Dehydration; R19.7 Diarrhea, unspecified; R82.71 Bacteriuria; K58.9 Irritable bowel syndrome, unspecified; F41.9 Anxiety disorder, unspecified; F32.A Depression, unspecified; Z79.899 Other long term (current) drug therapy; Z20.822 Contact with and (suspected) exposure to COVID-19
CPT/HCPCS: 36415; 71045; 80053; 81000; 83605; 83690; 84484; 84703; 85025; 85610; 85730; 86141; 87040; 87088; 87430; 87635; 87804; 93005; 93041

== ENCOUNTER 2021-04-24 23:00 | Emergency (ER) | payer MEDICAID ==
[~2021-04-24] VITALS: Ht 149.8 cm; Wt 57.9 kg
[~2021-04-24 23:00] MED LIST changes: +OXYC1TAB11 PO
--- NOTE | 2021-04-24 23:19 | ED GI ---
General Chief Complaint: Abdominal/GI Problems Stated Complaint: EMESIS;DEHYDRATION;ABD PAIN Nursing Triage Note: Pt c/o generalized abd pain with n/v/d. Was seen in ED on Sunday for similar symptoms. Denies fever, cough, or SOA. Source of Information: Patient History of Present Illness Date Seen by Provider: Apr 24, 2021 Time Seen by Provider: 23:11 Initial Comments 30 yo female presenting with continued diffuse abdominal pain, nausea, vomiting, diarrhea since being seen SundayApril 18. She states that she has not followed up with the clinic despite having worsening diarrhea and now just passing yellow bile appearing stool that you and irritates her rectum. She reports taking all of the nausea medicine that was prescribed from the ED last week and it was not helping. She feels like the abdominal pain and diarrhea is similar to when she has had C. Diff in the past. She did recently just finish antibiotics for strep throat. She is also just coming off of her menses so she is unable to say if there was blood in her urine. She felt that she was getting a fever tonight when she came to the ED. Her Covid and Influenza and Strep swabs from Apr 18 were all negative. Timing/Duration: Other (for over a week she has had symptoms and feels it is worsening) Severity/Quality: Severe, Burning, Cramping, Stabbing Location: Generalized Abdomen Activities at Onset: None Modifying Factors: Worsens With Eating, Worsens With Movement, Worsens With Palpation Associated Symptoms: Back Pain (bilateral flank pain, worse on right); No Chest Pain, No Diaphoresis; Fever/Chills (subjective fever tonight), Fatigue; No Headache; Heartburn, Nausea/Vomiting; No Rash, No Shortness of Air, No Swelling/Mass in Abdomen, No Syncope; Weakness Allergies and Home Medications Allergies Coded Allergies: clindamycin (Verified Allergy, Intermediate, oral blisters, SOB, 07/29/20) famotidine (Verified Allergy, Mild, Hives, 03/15/21) Given at the same time as fentanyl. Hives the IV site. fentanyl (Verified Allergy, Mild, Hives, 03/15/21) Given simultaneously with Pepcid. Hives at IV site. cinnamon (Verified Allergy, Unknown, 07/29/20) tramadol (Verified Allergy, Unknown, 01/07/21) Patient Home Medication List Home Medication List Reviewed: Yes Ciprofloxacin HCl (Ciprofloxacin HCl) 500 Mg Tablet, 500 MG PO BID Prescribed by: IRINEO THORPE on 09/20/20 225 Clonazepam (Clonazepam) 1 Mg Tablet, (Reported) Entered as Reported by: STEPHANIE NIETO on 09/15/20 1443 Dicyclomine HCl (Dicyclomine HCl) 20 Mg Tablet, 20 MG PO QID PRN for abdominal pain/cramping Prescribed by: IRINEO THORPE on 09/20/20 225 Famotidine (Pepcid) 20 Mg Tablet, 20 MG PO BID Prescribed by: NAOMI PAL on 01/07/21 1248 Hydrocodone/Acetaminophen (Hydrocodone-Acetamin 5-325 mg) 1 Each Tablet, 1 TAB PO Q4H PRN for PAIN-SEVERE (8-10) Prescribed by: IRINEO THORPE on 09/15/20 1507 Hydrocodone/Acetaminophen (Hydrocodone-Acetamin 10-325 mg) 1 Each Tablet, 1 EACH PO Q6H PRN for PAIN-SEVERE (8-10) Prescribed by: IRINEO THORPE on 09/20/20 225 Ibuprofen (Ibuprofen) 200 Mg Tablet, 400-600 MG PO Q8H PRN for PAIN-MILD (1-4), (Reported) Entered as Reported by: SKYLAR MASSEY on 07/30/20 1048 Metronidazole (Metronidazole) 500 Mg Tablet, 500 MG PO BID Prescribed by: IRINEO THORPE on 09/20/20 225 Nitrofurantoin Monohyd/M-Cryst (Macrobid 100 mg Capsule) 100 Mg Capsule, 1 TAB PO BID Prescribed by: NAOMI PAL on 01/23/21 0817 Ondansetron (Ondansetron Odt) 4 Mg Tab.rapdis, 4 MG PO Q6H PRN for NAUSEA/VOMITING Prescribed by: IRINEO THORPE on 04/18/21 1155 Ondansetron (Ondansetron Odt) 4 Mg Tab.rapdis, 4 MG PO Q6H PRN for NAUSEA/VOMITING Prescribed by: IRINEO THORPE on 04/25/21 0131 Oxycodone HCl/Acetaminophen (Percocet 5-325 mg Tablet) 1 Each Tablet, 1-2 TAB PO Q4H PRN for PAIN-BREAKTHROUGH Prescribed by: DANIELA FORD on 03/15/21 1711 Oxycodone HCl/Acetaminophen (Oxycodone-Acetaminophen 5-325) 1 Each Tablet, 1 EACH PO Q4H PRN for PAIN-SEVERE (8-10) Prescribed by: IRINEO THORPE on 04/18/21 1156 Oxycodone HCl/Acetaminophen (Oxycodone-Acetaminophen 5-325) 1 Each Tablet, 1 EACH PO Q4H PRN for PAIN-SEVERE (8-10) Prescribed by: IRINEO THORPE on 04/25/21 0132 Pantoprazole Sodium (Pantoprazole Sodium) 40 Mg Tablet.dr, 40 MG PO DAILY, (Reported) Entered as Reported by: SKYLAR MASSEY on 07/30/20 1048 Polyethylene Glycol 3350 (Miralax) 17 Gm Powd.pack, 17 GM PO BID Prescribed by: TISHA FLORENTINO on 08/05/20 1228 Prochlorperazine Maleate (Compazine) 10 Mg Tablet, 10 MG PO Q8H Prescribed by: NAOMI PAL on 01/07/21 1248 Prochlorperazine Maleate (Compazine) 10 Mg Tablet, 10 MG PO Q8H PRN for NAUSEA/VOMITING Prescribed by: IRINEO THORPE on 04/25/21 0131 Promethazine HCl (Promethazine Tablet) 25 Mg Tablet, (Reported) Entered as Reported by: STEPHANIE NIETO on 09/15/20 1443 Promethazine HCl (Promethazine Tablet) 25 Mg Tablet, 25 MG PO Q8H PRN for NAUSEA/VOMITING Prescribed by: IRINEO THORPE on 09/20/20 2255 Psyllium Husk/Aspartame (Metamucil Fiber Singles Packet) 3.4 Gm Powd.pack, 1 PACKET PO DAILY, (Reported) Entered as Reported by: SKYLAR MASSEY on 07/30/20 1048 Trazodone HCl (Trazodone HCl) 50 Mg Tablet, (Reported) Entered as Reported by: STEPHANIE NIETO on 09/15/20 1443 Review of Systems Review of Systems Constitutional: No chills, No diaphoresis; fever (subjective fever tonight) EENTM: No Symptoms Reported Respiratory: No Symptoms Reported Cardiovascular: No Symptoms Reported Gastrointestinal: See HPI Genitourinary: No Symptoms Reported Musculoskeletal: see HPI Skin: No rash Psychiatric/Neurological: Anxiety; Denies Headache Hematologic/Lymphatic: Denies Blood Clots Past Ebzwodf-Egxpfk-Wqiuxk Hx Patient Social History Tobacco Use?: No Use of E-Cig and/or Vaping dev: No Substance use?: No Alcohol Use?: No Pt feels they are or have been: No Immunizations Up To Date Tetanus Booster (TDap): More than 5yrs PED Vaccines UTD: Yes Influenza Vaccine Up-to-Date: No; Not Current First/Initial COVID19 Vaccinat: denies Seasonal Allergies Seasonal Allergies: No Past Medical History Surgery/Hospitalization HX: IBS, endometriosis, chronic abdominal pain Surgeries: Yes (Umbilical herniorrhaphy 07/04/12,D&C, ENDOMETRIOSIS SCRAPING, d&c, Mesh Tommy) Abdominal, Adenoidectomy, Appendectomy, Bowel Surgery, Gallbladder, Tonsillectomy, Tubal Ligation Respiratory: No Cardiac: No Neurological: No (only if pt takes tramadol. 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 No Pertinent Family Hx Physical Exam Vital Signs Vital Signs - First Documented 04/24/21 23:05 Temp 37.7 Pulse 97 Resp 17 B/P (MAP) 114/63 (80) Pulse Ox 100 O2 Delivery Room Air Capillary Refill : Less Than 3 Seconds Height/Weight/BMI Height: 4'10.00" Weight: 125lbs. 0oz. [id number]; 25.00 BMI Method:Stated General Appearance: mild distress, other (appears anxious, chronically ill) HEENT: PERRL/EOMI, normal ENT inspection, pharynx normal Neck: non-tender, full range of motion, supple, normal inspection Respiratory: chest non-tender, lungs clear, normal breath sounds, no respiratory distress, no accessory muscle use Cardiovascular: normal peripheral pulses, regular rate, rhythm Gastrointestinal: normal bowel sounds, soft, no pulsatile mass; No distended; guarding; No rebound; tenderness (diffuse tenderness ) Rectal: deferred Extremities: normal range of motion, non-tender, normal capillary refill Neurologic/Psychiatric: alert, oriented x 3 Skin: normal color, warm/dry Focused Exam Lactate Level 04/24/21 23:35: Lactic Acid Level 0.72 Lactic Acid Level Laboratory Tests Test 04/24/21 23:35 Lactic Acid Level 0.72 MMOL/L (0.50-2.00) Progress/Results/Core Measures Results/Orders Lab Results Laboratory Tests Test 04/24/21 23:33 04/24/21 23:35 Range/Units Urine Color YELLOW Urine Clarity CLEAR Urine pH 6.0 5-9 Urine Specific Anthony 1.020 1.016-1.022 Urine Protein NEGATIVE NEGATIVE Urine Glucose (UA) NEGATIVE NEGATIVE Urine Ketones 1+ H NEGATIVE Urine Nitrite NEGATIVE NEGATIVE Urine Bilirubin NEGATIVE NEGATIVE Urine Urobilinogen 0.2 < = 1.0 MG/DL Urine Leukocyte Esterase NEGATIVE NEGATIVE Urine RBC (Auto) 1+ H NEGATIVE Urine RBC 0-2 /HPF Urine WBC RARE /HPF Urine Squamous Epithelial Cells 2-5 /HPF Urine Crystals NONE /LPF Urine Bacteria FEW H /HPF Urine Casts NONE /LPF Urine Mucus MODERATE H /LPF Urine Culture Indicated NO Urine Opiates Screen NEGATIVE NEGATIVE Urine Oxycodone Screen NEGATIVE NEGATIVE Urine Methadone Screen NEGATIVE NEGATIVE Urine Propoxyphene Screen NEGATIVE NEGATIVE Urine Barbiturates Screen NEGATIVE NEGATIVE Ur Tricyclic Antidepressants Screen NEGATIVE NEGATIVE Urine Phencyclidine Screen NEGATIVE NEGATIVE Urine Amphetamines Screen NEGATIVE NEGATIVE Urine Methamphetamines Screen NEGATIVE NEGATIVE Urine Benzodiazepines Screen NEGATIVE NEGATIVE Urine Cocaine Screen NEGATIVE NEGATIVE Urine Cannabinoids Screen NEGATIVE NEGATIVE White Blood Count 6.5 4.3-11.0 10^3/uL Red Blood Count 4.26 3.80-5.11 10^6/uL Hemoglobin 11.6 11.5-16.0 g/dL Hematocrit 36 35-52 % Mean Corpuscular Volume 84 80-99 fL Mean Corpuscular Hemoglobin 27 25-34 pg Mean Corpuscular Hemoglobin Concent 33 32-36 g/dL Red Cell Distribution Width 13.7 10.0-14.5 % Platelet Count 201 130-400 10^3/uL Mean Platelet Volume 10.9 9.0-12.2 fL Immature Granulocyte % (Auto) 0 % Neutrophils (%) (Auto) 80 H 42-75 % Lymphocytes (%) (Auto) 10 L 12-44 % Monocytes (%) (Auto) 10 0-12 % Eosinophils (%) (Auto) 0 0-10 % Basophils (%) (Auto) 0 0-10 % Neutrophils # (Auto) 5.2 1.8-7.8 10^3/uL Lymphocytes # (Auto) 0.6 L 1.0-4.0 10^3/uL Monocytes # (Auto) 0.7 0.0-1.0 10^3/uL Eosinophils # (Auto) 0.0 0.0-0.3 10^3/uL Basophils # (Auto) 0.0 0.0-0.1 10^3/uL Immature Granulocyte # (Auto) 0.0 0.0-0.1 10^3/uL Prothrombin Time 13.2 12.2-14.7 SEC INR Comment 1.0 0.8-1.4 Activated Partial Thromboplast Time 31 24-35 SEC Sodium Level 136 135-145 MMOL/L Potassium Level 3.1 L 3.6-5.0 MMOL/L Chloride Level 102 98-107 MMOL/L Carbon Dioxide Level 23 21-32 MMOL/L Anion Gap 11 5-14 MMOL/L Blood Urea Nitrogen 9 7-18 MG/DL Creatinine 0.70 0.60-1.30 MG/DL Estimat Glomerular Filtration Rate 120 BUN/Creatinine Ratio 13 Glucose Level 104 70-105 MG/DL Lactic Acid Level 0.72 0.50-2.00 MMOL/L Calcium Level 8.6 8.5-10.1 MG/DL Corrected Calcium 8.5 8.5-10.1 MG/DL Total Bilirubin 0.2 0.1-1.0 MG/DL Aspartate Amino Transf (AST/SGOT) 14 5-34 U/L Alanine Aminotransferase (ALT/SGPT) 20 0-55 U/L Alkaline Phosphatase 64 40-136 U/L Troponin I < 0.30 <0.30 NG/ML C-Reactive Protein 1.39 H <0.50 MG/DL Total Protein 7.0 6.4-8.2 GM/DL Albumin 4.1 3.2-4.5 GM/DL Lipase 19 8-78 U/L Serum Test, Qualitative NEGATIVE NEGATIVE My Orders Orders - IRINEO THORPE MD Ed Iv/Invasive Line Start (04/24/21 23:19) Cbc With Automated Diff (04/24/21 23:19) Comprehensive Metabolic Panel (04/24/21 23:19) Crp Fs (04/24/21 23:19) Troponin I Fs (04/24/21 23:19) Lactic Acid Analyzer (04/24/21:19) Protime With Inr (04/24/21:) Partial Thromboplastin Time (04/24/21 23:19) Ns Iv 1000 Ml (Sodium Chloride 0.9%) (04/24/21 23:30) Lipase (04/24/21 23:19) Ua Culture If Indicated (04/24/21 23:19) Drug Screen Stat (Urine) (04/24/21 23:19) Hcg,Qualitative Serum (04/24/21 23:19) Ondansetron Injection (Zofran Injectio (04/24/21 23:32) Pantoprazole Injection (Protonix Injecti (04/24/21 23:32) Ketorolac Injection (Toradol Injection) (04/24/21 23:32) Morphine Injection (Morphine Injection (04/24/21 23:32) Stool Culture (04/24/21 23:32) Fecal Wbc (04/24/21 23:32) C Difficile Ag + Toxin A/B. (04/24/21 23:32) Isolation Central Supply Req (04/24/21 23:32) Ct Abdomen/Pelvis W (04/24/21 23:34) Iohexol Injection (Omnipaque 350 Mg/Ml 1 (04/24/21 23:45) Sodium Chloride Flush (Catheter Flush Sy (04/24/21 23:45) Ns (Ivpb) (Sodium Chloride 0.9% Ivpb Bag (04/24/21 23:45) Received Contrast (Hold Metformin- Contr (04/24/21 23:45) Morphine Injection (Morphine Injection (04/25/21 00:48) Ondansetron Injection (Zofran Injectio (04/25/21 00:48) Diphenhydramine Injection (Benadryl Inje (04/25/21 00:48) Morphine Injection (Morphine Injection (04/25/21 01:21) Prochlorperazine Injection (Compazine In (04/25/21 01:21) Rx-Oxycodone/Apap 5-325 Mg (Rx-Percocet (04/25/21 01:30) Rx-Ondansetron Po (Rx-Zofran Po) (04/25/21 01:30) Medications Given in ED Current Medications Medications Dose Ordered Sig/Damion Route Start Time Stop Time Status Last Admin Dose Admin Iohexol 150 ml ONCE ONCE IV 04/24/21 23:45 04/24/21 23:46 DC 04/25/21 00:05 100 ML Ondansetron HCl 4 mg Q6H PRN PO 04/25/21 01:30 04/25/21 01:35 4 MG Oxycodone/ Acetaminophen 1 ea Q4H PRN PO 04/25/21 01:30 04/25/21 01:35 1 EA Sodium Chloride 10 ml NEEDED PRN IV 04/24/21 23:45 04/25/21 00:06 10 ML Sodium Chloride 100 ml ONCE ONCE IV 04/24/21 23:45 04/24/21 23:46 DC 04/25/21 00:06 100 ML Vital Signs/I&O 04/24/21 04/25/21 23:05 01:06 Temp 37.7 Pulse 97 83 Resp 17 15 B/P (MAP) 114/63 (80) 106/63 Pulse Ox 100 98 O2 Delivery Room Air Room Air Blood Pressure Mean: 190 Progress Progress Note #1: Progress Note Repeat labs from last week and since she feels the pain is worse will perform CT scan to evaluate for additional pathology in her abdomen/pelvis. If she has stool then we can perform stool studies to evaluate for C. diff and cultures. Give NS 1 L IVF for hydration. Toradol 30 mg IV for pain, Morphine 5 mg IV for pain, Zofran 4 mg IV for nausea/vomiting. Check urine and urine drug screen to evaluate for infection or other reason for her to have abdominal pain. Progress Note #2: Progress Note Labs all appear stable without acute significant abnormality. Her white blood cell count is normal at 6.5. She has mild hypokalemia of 3.1. Her renal function and hepatic function are normal. Her lipase and lactic acid are normal. She has mild elevation of her CRP. Urinalysis does not show any drugs of abuse and her UA does not show signs of infection. She also has a specific gravity of 1.020 which is better than when she was seen last Sunday. Progress Note #3: Progress Note CT scan of the abdomen and pelvis showed no acute findings per the radiologist. Counseled patient that we could continue some nausea and pain medicine for home and that she would need to check back with her primary doctor and GI doctor. We will send supplies with her so that if she has more diarrhea at home she could collect a specimen to bring back for stool studies and to check for C. diffici le. Pt has had no emesis here in the ED and no diarrhea. Her labs are not indicative of severe dehydration or sepsis or acute indication for admit. Recommend follow up with pcp and specialist as outpt and to check stool for C. Diff. Diagnostic Imaging Diagonstic Imaging: CT Plain Films/CT/US/NM/MRI: abdomen, pelvis Comments Impression: 1. No acute findings in the abdomen or pelvis. Read by radiologist Dr. Naomi Bradshaw MD at 0020 and faxed at 0032 Reviewed: Reviewed [place] Study, Reviewed by Me Departure Impression Primary Impression: Diffuse abdominal pain Additional Impression: Nausea vomiting and diarrhea Disposition: HOME, SELF-CARE Condition: Stable Departure-Patient Inst. Decision time for Depature: 01:27 Referrals: LUIS QUEZADA APRN (PCP) Primary Care Physician [facility] (Family) Primary Care Physician Patient Instructions: Abdominal Pain, Adult ED, Diarrhea, Adult ED, Nausea and Vomiting, Adult ED Add. Discharge Instructions: Follow up with your regular provider in the clinic and with your GI specialist about your recurrent pain and symptoms If your symptoms are not improving with the medicines for pain and nausea you may need to be rechecked If you can collect some of your diarrhea stool bring that in a specimen cup to the lab for testing to look for Clostridium difficile infection as well as culture your stool. All discharge instructions reviewed with patient and/or family. Voiced understanding. Scripts Ondansetron (Ondansetron Odt) 4 Mg Tab.rapdis 4 MG PO Q6H PRN for NAUSEA/VOMITING for 5 Days, #20 TAB 0 Refills Prov: IRINEO THORPE MD 04/25/21 Prochlorperazine Maleate (Compazine) 10 Mg Tablet 10 MG PO Q8H PRN for NAUSEA/VOMITING for 10 Days, #30 TAB 0 Refills Prov: IRINEO THORPE MD 04/25/21 Oxycodone HCl/Acetaminophen (Oxycodone-Acetaminophen 5-325) 1 Each Tablet 1 EACH PO Q4H PRN for PAIN-SEVERE (8-10) MDD 6 for 3 Days, #18 TAB 0 Refills Prov: IRINEO THORPE MD 04/25/21 IRINEO THORPE MD Apr 24, 2021 23:19
[2021-04-24] MEDS ORDERED: NS IV 1000 ML 1,000 ML IV SCH (23:30)
[2021-04-24] MEDS ORDERED: KETOROLAC 30 MG/ML VIAL IVP STA (23:32)
[2021-04-24] MEDS ORDERED: PANTOPRAZOLE 40 MG (PROTONIX) VIAL IV STA (23:32)
[2021-04-24] MEDS ORDERED: ONDANSETRON 4 MG/2 ML (SDV) Z0FRAN IVP STA (23:32)
[2021-04-24] MEDS ORDERED: morphine INJ 10 MG/ML 1ML (SYR OR VIAL) IVP STA (23:32)
[2021-04-24] MEDS ORDERED: NS 100 ML (IVPB) BAG IV ONE (23:45)
[2021-04-24] MEDS ORDERED: CATHETER FLUSH 10 ML SYR IV PRN (23:45)
[2021-04-24] MEDS ORDERED: HOLD METFORMIN - RECEIVED CONTRAST 20 ML VIAL IV SCH (23:45)
[2021-04-24] MEDS ORDERED: IOHEXOL 350 MG/ML 150 ML (OMNIPAQUE 350) VIAL IV ONE (23:45)
[2021-04-24 23:57] LABS: BASOPHILS % (AUTO) 0 % (0-10); EOSINOPHILS % (AUTO) 0 % (0-10); HEMATOCRIT 36 % (35-52); HEMOGLOBIN 11.6 g/dL (11.5-16.0); LYMPHOCYTES # (AUTO) 0.6 10^3/uL (1.0-4.0); LYMPHOCYTES % (AUTO) 10 % (12-44); MEAN CORPUSCULAR HEMOGLOBIN 27 pg (25-34); MEAN CORPUSCULAR HGB CONC 33 g/dL (32-36); MEAN CORPUSCULAR VOLUME 84 fL (80-99); MEAN PLATELET VOLUME 10.9 fL (9.0-12.2); MONOCYTES # (AUTO) 0.7 10^3/uL (0.0-1.0); MONOCYTES % (AUTO) 10 % (0-12); NEUTROPHILS # (AUTO) 5.2 10^3/uL (1.8-7.8); NEUTROPHILS % (AUTO) 80 % (42-75); PLATELET COUNT 201 10^3/uL (130-400); WHITE BLOOD COUNT 6.5 10^3/uL (4.3-11.0)
[2021-04-25] LABS: BILIRUBIN,URINE NEGATIVE (NEGATIVE); CLARITY,URINE CLEAR; COLOR,URINE YELLOW; GLUCOSE, URINE (UA) NEGATIVE (NEGATIVE); KETONES,URINE 1+ (NEGATIVE); LEUKOCYTE ESTERASE ,URINE NEGATIVE (NEGATIVE); NITRITE,URINE NEGATIVE (NEGATIVE); PROTEIN,URINE NEGATIVE (NEGATIVE)
[2021-04-25 00:10] LABS: PROTHROMBIN TIME PATIENT 13.2 SEC (12.2-14.7)
[2021-04-25 00:17] LABS: RBC,URINE 0-2 /HPF; WBC,URINE RARE /HPF
[2021-04-25 00:18] LABS: BACTERIA,URINE FEW /HPF
[2021-04-25 00:23] LABS: BILIRUBIN,TOTAL 0.2 MG/DL (0.1-1.0); BUN/CREATININE RATIO 13; CALCIUM 8.6 MG/DL (8.5-10.1); CARBON DIOXIDE 23 MMOL/L (21-32); CHLORIDE 102 MMOL/L (98-107); GFR ESTIMATED 120; GLUCOSE 104 MG/DL (70-105); POTASSIUM 3.1 MMOL/L (3.6-5.0); SODIUM 136 MMOL/L (135-145)
[2021-04-25 00:24] LABS: ALANINE AMINOTRANSFERASE 20 U/L (0-55); ALBUMIN 4.1 GM/DL (3.2-4.5); ALKALINE PHOSPHATASE 64 U/L (40-136)
[2021-04-25 00:25] LABS: AMPHETAMINE SCREEN, URINE NEGATIVE (NEGATIVE); BARBITURATE SCREEN URINE NEGATIVE (NEGATIVE); BENZODIAZEPINES SCREEN URINE NEGATIVE (NEGATIVE); CANNABINOID SCREEN, URINE NEGATIVE (NEGATIVE); COCAINE SCREEN URINE NEGATIVE (NEGATIVE); METHADONE STAT NEGATIVE (NEGATIVE); METHAMPHETAMINE SCREEN URINE S NEGATIVE (NEGATIVE); OPIATE SCREEN URINE NEGATIVE (NEGATIVE); OXYCODONE STAT NEGATIVE (NEGATIVE); PROPOXYPHENE STAT NEGATIVE (NEGATIVE); TRICYCLIC ANTIDEPRESSANTS SCRE NEGATIVE (NEGATIVE)
[2021-04-25] MEDS ORDERED: ONDANSETRON 4 MG/2 ML (SDV) Z0FRAN IVP STA (00:48)
[2021-04-25] MEDS ORDERED: diphenhydrAMINE 50 MG/ML INJ (BENADRYL) IVP STA (00:48)
[2021-04-25] MEDS ORDERED: morphine INJ 10 MG/ML 1ML (SYR OR VIAL) IVP STA ×2 (00:48→01:21)
[2021-04-25] MEDS ORDERED: PROCHLORPERAZINE 10 MG/2ML INJ (COMPAZINE) IV STA (01:21)
[2021-04-25] MEDS ORDERED: RX-OXYCODONE/APAP 5-325 MG #4 TAB PK PO PRN (01:30)
[2021-04-25] MEDS ORDERED: RX-ONDANSETRON 4 MG ODT (ZOFRAN) PPK #4 PO PRN (01:30)
[2021-04-25] MEDS ORDERED: OXYC1TAB11 PO (01:31)
[2021-04-25] MEDS ORDERED: ONDA4TAB11 PO (01:31)
[2021-04-25] MEDS ORDERED: PROC-1 PO (01:31)
[2021-04-25 01:45] VITALS: BP 106/63
--- NOTE | 2021-04-25 06:29 | Diagnostic Imaging Report ---
EXAMINATION: CT abdomen and pelvis with intravenous contrast. TECHNIQUE: Multiple contiguous axial images were obtained through the abdomen and pelvis after the uneventful administration of intravenous contrast. All CT scans use one or more of the following dose optimizing techniques: automated exposure control, MA and/or KvP adjustment based on patient size and exam type or iterative reconstruction. HISTORY: Diffuse abdominal pain COMPARISON: 03/15/2021 FINDINGS: Limited views of the lower thorax are unremarkable. The liver is normal without focal lesion. There is no biliary ductal dilation. Gallbladder is absent. Pancreas is normal. Spleen is normal. Adrenal glands are normal. The kidneys are normal. There is no hydronephrosis. Urinary bladder is normal. There are surgical clips in the pelvis. Bowel is normal in caliber without obstruction or inflammation. No free fluid or air. No abdominal or pelvic lymphadenopathy. Aorta is normal in caliber without aneurysm. There are no suspicious osseus lesions. IMPRESSION: 1. No acute abnormality in the abdomen or pelvis. Dictated by: Dictated on workstation # [id number]
== END 2021-04-25 01:45 | disposition home or self-care (01) ==
LOC: EDUNIT# 23:00 → ER FS 23:02
DX: R10.84 Generalized abdominal pain (principal); R11.2 Nausea with vomiting, unspecified; R19.7 Diarrhea, unspecified; F41.9 Anxiety disorder, unspecified; F32.9 Major depressive disorder, single episode, unspecified; G89.29 Other chronic pain; M54.9 Dorsalgia, unspecified; Z79.891 Long term (current) use of opiate analgesic; Z79.899 Other long term (current) drug therapy
CPT/HCPCS: 36415; 74177; 80053; 80306; 81000; 83605; 83690; 84484; 84703; 85025; 85610; 85730; 86141

== ENCOUNTER 2021-04-27 14:46 | Emergency (ER) | payer MEDICAID ==
[~2021-04-27] VITALS: Ht 149 cm; Wt 65.0 kg
[2021-04-27] MEDS ORDERED: LORazepam INJ 2 MG/ML (ATIVAN) VIAL IVP STA (15:16)
[2021-04-27] MEDS ORDERED: morphine INJ 10 MG/ML 1ML (SYR OR VIAL) IVP STA (15:16)
[2021-04-27] MEDS ORDERED: ONDANSETRON 4 MG/2 ML (SDV) Z0FRAN IVP STA (15:16)
[2021-04-27] MEDS ORDERED: LACTATED RINGERS 1,000 ML IV SCH (15:30)
[2021-04-27 15:39] LABS: INR 1.1 (0.8-1.4); PROTHROMBIN TIME PATIENT 14.2 SEC (12.2-14.7)
[2021-04-27 15:45] LABS: BASOPHILS % (AUTO) 0 % (0-10); EOSINOPHILS % (AUTO) 0 % (0-10); HEMATOCRIT 33 % (35-52); HEMOGLOBIN 10.7 g/dL (11.5-16.0); LYMPHOCYTES # (AUTO) 0.6 X 10^3 (1.0-4.0); LYMPHOCYTES % (AUTO) 6 % (12-44); MEAN CORPUSCULAR HEMOGLOBIN 28 pg (25-34); MEAN CORPUSCULAR HGB CONC 28 g/dL (32-36); MEAN CORPUSCULAR VOLUME 86 fL (80-99); MEAN PLATELET VOLUME 11.3 fL (9.0-12.2); MONOCYTES # (AUTO) 0.6 X 10^3 (0.0-1.0); MONOCYTES % (AUTO) 6 % (0-12); NEUTROPHILS # (AUTO) 8.8 X 10^3 (1.8-7.8); NEUTROPHILS % (AUTO) 89 % (42-75); PLATELET COUNT 245 10^3/uL (130-400)
[2021-04-27 15:49] LABS: ALANINE AMINOTRANSFERASE 17 U/L (0-55); ALKALINE PHOSPHATASE 69 U/L (40-136); BILIRUBIN,TOTAL 0.2 MG/DL (0.1-1.0); BUN/CREATININE RATIO 8; CALCIUM 8.9 MG/DL (8.5-10.1); CARBON DIOXIDE 21 MMOL/L (21-32); CHLORIDE 102 MMOL/L (98-107); CREATININE SERUM 0.61 MG/DL (0.60-1.30); GFR ESTIMATED 124; GLUCOSE 104 MG/DL (70-105); POTASSIUM 3.8 MMOL/L (3.6-5.0); SODIUM 136 MMOL/L (135-145)
[2021-04-27 15:50] LABS: ALBUMIN 4.1 GM/DL (3.2-4.5); TOTAL PROTEIN 7.3 GM/DL (6.4-8.2)
[2021-04-27 15:57] LABS: ATYPICAL LYMPHOCYTES 4 %; BAND NEUTROPHILS 7 %; BASOPHILS % (MANUAL) 0 %; EOSINOPHILS % (MANUAL) 1 %; HYPOCHROMASIA 1+; LYMPHOCYTES % (MANUAL) 5 %; MICROCYTOSIS 1+; MONOCYTES % (MANUAL) 4 %; NEUTROPHILS % (MANUAL) 79 %; PLATELET ESTIMATE NORMAL
--- NOTE | 2021-04-27 16:04 | Diagnostic Imaging Report ---
INDICATION: Cough and COVID infection. Portable AP view of the chest is obtained with comparison made to study of 04/18/2021. FINDINGS: Heart size and pulmonary vascularity remain within normal limits. There is focal rounded opacity in the upper lobe of the right lung, which likely represents area of infiltrate. There is no pneumothorax or significant pleural fluid. IMPRESSION: Rounded airspace disease in the right upper lobe likely represents area of pneumonitis or pneumonia, and follow-up study is recommended to document resolution. Dictated by: Dictated on workstation # [id number]
--- NOTE | 2021-04-27 16:38 | ED General ---
General Chief Complaint: COVID19 Suspect/Confirmed Stated Complaint: PALPATATIONS; COVID+ Source of Information: Patient, Old Records History of Present Illness Date Seen by Provider: Apr 27, 2021 Time Seen by Provider: 14:51 Initial Comments 30-year-old female presenting with complaints of heart palpitations and continued nausea and vomiting. She started having plugged sensation in her left ear and a cough today. She went to the walk-in urgent care clinic and they did a Covid swab which came back positive. She came here to the emergency department after the test was done. She has had several ER visits in the last few weeks for nausea and vomiting. Her last Covid swab on April 18 was negative. She states that she has not been able to keep anything down at home and her vital signs and labs continue to look stable. She denies fever but has had chills. She has chronic abdominal pain, nausea, vomiting. Severity: Moderate Modifying Factors: worse with Movement Associated Systoms: No Chest Pain; Cough; No Diaphoresis, No Fever/Chills, No Headaches; Loss of Appetite, Malaise, Nausea/Vomiting; No Rash, No Seizure; Shortness of Air; No Syncope; Weakness Allergies and Home Medications Allergies Coded Allergies: clindamycin (Verified Allergy, Intermediate, oral blisters, SOB, 07/29/20) famotidine (Verified Allergy, Mild, Hives, 03/15/21) Given at the same time as fentanyl. Hives the IV site. fentanyl (Verified Allergy, Mild, Hives, 03/15/21) Given simultaneously with Pepcid. Hives at IV site. cinnamon (Verified Allergy, Unknown, 07/29/20) tramadol (Verified Allergy, Unknown, 01/07/21) Patient Home Medication List Home Medication List Reviewed: Yes Azithromycin (Azithromycin) 250 Mg Tablet, 250 MG PO DAILY Prescribed by: IRINEO THORPE on 04/27/21 1708 Ciprofloxacin HCl (Ciprofloxacin HCl) 500 Mg Tablet, 500 MG PO BID Prescribed by: IRINEO THORPE on 09/20/20 8735 Clonazepam (Clonazepam) 1 Mg Tablet, (Reported) Entered as Reported by: STEPHANIE NIETO on 09/15/20 1443 Dicyclomine HCl (Dicyclomine HCl) 20 Mg Tablet, 20 MG PO QID PRN for abdominal pain/cramping Prescribed by: IRINEO THORPE on 09/20/20 2255 Famotidine (Pepcid) 20 Mg Tablet, 20 MG PO BID Prescribed by: NAOMI PAL on 01/07/21 1248 Hydrocodone/Acetaminophen (Hydrocodone-Acetamin 5-325 mg) 1 Each Tablet, 1 TAB PO Q4H PRN for PAIN-SEVERE (8-10) Prescribed by: IRINEO TYSONRT on 09/15/20 1507 Hydrocodone/Acetaminophen (Hydrocodone-Acetamin 10-325 mg) 1 Each Tablet, 1 EACH PO Q6H PRN for PAIN-SEVERE (8-10) Prescribed by: IRINEO TYSONRT on 09/20/20 2255 Ibuprofen (Ibuprofen) 200 Mg Tablet, 400-600 MG PO Q8H PRN for PAIN-MILD (1-4), (Reported) Entered as Reported by: SKYLAR MASSEY on 07/30/20 1048 Lorazepam (Ativan) 0.5 Mg Tablet, 0.5 MG PO TID PRN for NAUSEA/VOMITING Prescribed by: IRINEO THORPE on 04/27/21 1708 Metronidazole (Metronidazole) 500 Mg Tablet, 500 MG PO BID Prescribed by: IRINEO TYSONRT on 09/20/20 2255 Nitrofurantoin Monohyd/M-Cryst (Macrobid 100 mg Capsule) 100 Mg Capsule, 1 TAB PO BID Prescribed by: NAOMI PAL on 01/23/21 0817 Ondansetron (Ondansetron Odt) 4 Mg Tab.rapdis, 4 MG PO Q6H PRN for NAUSEA/VOMI TING Prescribed by: IRINEO THORPE on 04/18/21 1155 Ondansetron (Ondansetron Odt) 4 Mg Tab.rapdis, 4 MG PO Q6H PRN for NAUSEA/VOMITING Prescribed by: IIRNEO THORPE on 04/25/21 0131 Oxycodone HCl/Acetaminophen (Percocet 5-325 mg Tablet) 1 Each Tablet, 1-2 TAB PO Q4H PRN for PAIN-BREAKTHROUGH Prescribed by: DANIELA FORD on 03/15/21 1711 Oxycodone HCl/Acetaminophen (Oxycodone-Acetaminophen 5-325) 1 Each Tablet, 1 EACH PO Q4H PRN for PAIN-SEVERE (8-10) Prescribed by: IRINEO THORPE on 04/18/21 1156 Oxycodone HCl/Acetaminophen (Oxycodone-Acetaminophen 5-325) 1 Each Tablet, 1 EACH PO Q4H PRN for PAIN-SEVERE (8-10) Prescribed by: IRINEO THORPE on 04/25/21 0132 Pantoprazole Sodium (Pantoprazole Sodium) 40 Mg Tablet.dr, 40 MG PO DAILY, (Reported) Entered as Reported by: SKYLAR MASSEY on 07/30/20 1048 Polyethylene Glycol 3350 (Miralax) 17 Gm Powd.pack, 17 GM PO BID Prescribed by: TISHA FLORENTINO on 08/05/20 1228 Prochlorperazine Maleate (Compazine) 10 Mg Tablet, 10 MG PO Q8H Prescribed by: NAOMI PAL on 01/07/21 1248 Prochlorperazine Maleate (Compazine) 10 Mg Tablet, 10 MG PO Q8H PRN for NAUSEA/VOMITING Prescribed by: IRINEO THORPE on 04/25/21 0131 Promethazine HCl (Promethazine Tablet) 25 Mg Tablet, (Reported) Entered as Reported by: STEPHANIE NIETO on 09/15/20 1443 Promethazine HCl (Promethazine Tablet) 25 Mg Tablet, 25 MG PO Q8H PRN for NAUSEA/VOMITING Prescribed by: IRINEO THORPE on 09/20/20 2255 Psyllium Husk/Aspartame (Metamucil Fiber Singles Packet) 3.4 Gm Powd.pack, 1 PACKET PO DAILY, (Reported) Entered as Reported by: SKYLAR MASSEY on 07/30/20 1048 Trazodone HCl (Trazodone HCl) 50 Mg Tablet, (Reported) Entered as Reported by: STEPHANIE NIETO on 09/15/20 1443 Review of Systems Review of Systems Constitutional: No chills, No fever; malaise, weakness (general) EENTM: ear pain (left sided), nose congestion Respiratory: cough, short of breath Cardiovascular: No chest pain, No edema Gastrointestinal: see HPI, nausea, vomiting Genitourinary: No dysuria, No frequency Musculoskeletal: no symptoms reported Skin: No rash Psychiatric/Neurological: Denies Headache Past Bltrncd-Rlagka-Nuuize Hx Patient Social History Tobacco Use?: No Use of E-Cig and/or Vaping dev: No Substance use?: No Alcohol Use?: No Immunizations Up To Date Tetanus Booster (TDap): More than 5yrs PED Vaccines UTD: Yes First/Initial COVID19 Vaccinat: denies Seasonal Allergies Seasonal Allergies: No Past Medical History Surgery/Hospitalization HX: IBS, endometriosis, chronic abdominal pain Surgeries: Yes (Umbilical herniorrhaphy 07/04/12,D&C, ENDOMETRIOSIS SCRAPING, d&c, Mesh Tommy) Abdominal, Adenoidectomy, Appendectomy, Bowel Surgery, Gallbladder, Tonsillectomy, Tubal Ligation Respiratory: No Cardiac: No Neurological: No (only if pt takes tramadol. 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 No Pertinent Family Hx Physical Exam Vital Signs Vital Signs - First Documented 04/27/21 04/27/21 15:33 16:52 Temp 36.1 Pulse 88 Resp 16 B/P (MAP) 110/70 (83) Pulse Ox 98 O2 Delivery Room Air Capillary Refill : Height, Weight, BMI Height: 4'10.00" Weight: 125lbs. 0oz. 56.563696oc; 29.00 BMI Method:Stated General Appearance: Chronically ill (appears as though she does not feel well) HEENT: PERRL/EOMI, Pharynx Normal, Moist Mucous Membranes Neck: Full Range of Motion, Normal Inspection, Non Tender, Supple Respiratory: Chest Non Tender, Lungs Clear, Normal Breath Sounds, No Accessory Muscle Use, No Respiratory Distress Cardiovascular: Regular Rate, Rhythm, Normal Peripheral Pulses Gastrointestinal: Normal Bowel Sounds, No Pulsatile Mass, Soft; No Distended, No Guarding, No Rebound; Tenderness (diffuse) Rectal: Deferred Extremity: Normal Capillary Refill, Normal Inspection, No Calf Tenderness, No Pedal Edema Neurologic/Psychiatric: Alert, Oriented x3, medical transcription supervisor II-XII Norm as Tested Skin: Normal Color, Warm/Dry Focused Exam Lactate Level 04/27/21 15:12: Lactic Acid Level 0.76 Lactic Acid Level Laboratory Tests Test 04/27/21 15:12 Lactic Acid Level 0.76 MMOL/L (0.50-2.00) Progress/Results/Core Measures Suspected Sepsis SIRS Temperature: Pulse: 88 Respiratory Rate: 16 Laboratory Tests 04/27/21 15:12: White Blood Count 10.0 Blood Pressure 110 /70 Mean: 83 04/27/21 15:12: Lactic Acid Level 0.76 Laboratory Tests 04/27/21 15:12: Creatinine 0.61, INR Comment 1.1, Platelet Count 245, Total Bilirubin 0.2 Results/Orders Lab Results Laboratory Tests Test 04/27/21 15:12 Range/Units White Blood Count 10.0 4.3-11.0 10^3/uL Red Blood Count 3.80 3.80-5.11 10^6/uL Hemoglobin 10.7 L 11.5-16.0 g/dL Hematocrit 33 L 35-52 % Mean Corpuscular Volume 86 80-99 fL Mean Corpuscular Hemoglobin 28 25-34 pg Mean Corpuscular Hemoglobin Concent 28 L 32-36 g/dL Red Cell Distribution Width 13.6 10.0-14.5 % Platelet Count 245 130-400 10^3/uL Mean Platelet Volume 11.3 9.0-12.2 fL Neutrophils (%) (Auto) 89 H 42-75 % Lymphocytes (%) (Auto) 6 L 12-44 % Monocytes (%) (Auto) 6 0-12 % Eosinophils (%) (Auto) 0 0-10 % Basophils (%) (Auto) 0 0-10 % Neutrophils # (Auto) 8.8 H 1.8-7.8 X 10^3 Lymphocytes # (Auto) 0.6 L 1.0-4.0 X 10^3 Monocytes # (Auto) 0.6 0.0-1.0 X 10^3 Eosinophils # (Auto) 0.0 0.0-0.3 10^3/uL Basophils # (Auto) 0.0 0.0-0.1 10^3/uL Neutrophils % (Manual) 79 % Lymphocytes % (Manual) 5 % Monocytes % (Manual) 4 % Eosinophils % (Manual) 1 % Basophils % (Manual) 0 % Band Neutrophils 7 % Atypical Lymphocytes 4 % Platelet Estimate NORMAL Hypochromasia 1+ Microcytosis 1+ Macrocytosis 1+ Prothrombin Time 14.2 12.2-14.7 SEC INR Comment 1.1 0.8-1.4 Activated Partial Thromboplast Time 35 24-35 SEC Sodium Level 136 135-145 MMOL/L Potassium Level 3.8 3.6-5.0 MMOL/L Chloride Level 102 98-107 MMOL/L Carbon Dioxide Level 21 21-32 MMOL/L Anion Gap 13 5-14 MMOL/L Blood Urea Nitrogen 5 L 7-18 MG/DL Creatinine 0.61 0.60-1.30 MG/DL Estimat Glomerular Filtration Rate 124 BUN/Creatinine Ratio 8 Glucose Level 104 70-105 MG/DL Lactic Acid Level 0.76 0.50-2.00 MMOL/L Calcium Level 8.9 8.5-10.1 MG/DL Corrected Calcium 8.8 8.5-10.1 MG/DL Magnesium Level 1.9 1.6-2.4 MG/DL Total Bilirubin 0.2 0.1-1.0 MG/DL Aspartate Amino Transf (AST/SGOT) 17 5-34 U/L Alanine Aminotransferase (ALT/SGPT) 17 0-55 U/L Alkaline Phosphatase 69 40-136 U/L Troponin I < 0.30 <0.30 NG/ML C-Reactive Protein 8.44 H <0.50 MG/DL Total Protein 7.3 6.4-8.2 GM/DL Albumin 4.1 3.2-4.5 GM/DL My Orders Orders - IRINEO THORPE MD Monitor-Rhythm Ecg Trace Only (04/27/21 15:16) Ed Iv/Invasive Line Start (04/27/21 15:16) Cbc With Automated Diff (04/27/21 15:16) Comprehensive Metabolic Panel (04/27/21 15:16) Crp Fs (04/27/21 15:16) Troponin I Fs (04/27/21 15:16) Lactic Acid Analyzer (04/27/21 15:16) Protime With Inr (04/27/21 15:16) Partial Thromboplastin Time (04/27/21 15:16) Ekg Tracing (04/27/21 15:16) Lactated Ringers (Lr 1000 Ml Iv Solution (04/27/21 15:30) Chest 1 View Ap/Pa Only (04/27/21 15:16) Ondansetron Injection (Zofran Injectio (04/27/21 15:16) Lorazepam Injection (Ativan Injection) (04/27/21 15:16) Morphine Injection (Morphine Injection (04/27/21 15:16) Magnesium (04/27/21 15:18) Manual Differential (04/27/21 15:12) Azithromycin Tablet (Zithromax Tablet) (04/27/21 16:58) Dexamethasone Injection (Decadron Inje (04/27/21 16:58) Albuterol Inhaler (Albuterol) (04/27/21 16:58) Vital Signs/I&O 04/27/21 04/27/21 15:33 16:52 Temp 36.1 Pulse 88 71 Resp 16 16 B/P (MAP) 110/70 (83) 112/63 Pulse Ox 98 O2 Delivery Room Air Room Air Capillary Refill : Blood Pressure Mean: 83 Progress Note #1: Progress Note Will recheck labs electrocardiogram as well as chest x-ray. Give IV fluids for hydration 1 L lactated Ringer's. For her nausea and vomiting give Zofran 4 mg IV, Ativan 1 mg IV and for her abdominal pain give morphine 4 mg IV Differential diagnosis includes Covid pneumonia, chronic abdominal pain, i rritable bowel, cyclic vomiting Progress Note #2: Progress Note Electrocardiogram does not show any acute process. Her chest x-ray shows developing infiltrate. Her CBC and chemistry appear stable without acute significant abnormality with her lab. Her lactic acid is negative. Her cardiac enzymes are negative. She does have elevation of her CRP. She reports improvement in her symptoms with treatment. She felt that the Ativan was doing more for her nausea than the Zofran and Compazine have been. Will treat with Zithromax for possible bacterial pneumonia seen on xray. Single dose of decadron for her congestion and cough. Albuterol inhaler with spacer for her shortness of breath and cough. Try low dose ativan at home for her nausea since she felt it did better for her nausea/vomiting than the Zofran and Compazine. ECG Initial ECG Impression Date: Apr 27, 2021 Initial ECG Impression Time: 15:50 Initial ECG Rate: 74 Initial ECG Rhythm: Normal Sinus Initial ECG Comparisson: Unchanged Comment Normal sinus rhythm with a heart rate of 74 bpm. PA interval 125 ms with voltage in the precordial leads. Borderline left axis deviation. QT interval 389 ms with a QTc interval 432 ms. There is no acute ST elevation. Appears similar to prior tracings in the system. Diagnostic Imaging Diagonstic Imaging: Xray Plain Films/CT/US/NM/MRI: chest Comments [facility] [place], [place] NAME: CAM ESCOBEDO [facility] REC#: [id number] PT STATUS: REG ER : 1990 PHYSICIAN: IRINEO THORPE MD ADMIT DATE: 04/27/21/ER FS Draft Date of Exam:04/27/21 CHEST 1 VIEW AP/PA ONLY INDICATION: Cough and COVID infection. Portable AP view of the chest is obtained with comparison made to study of 04/18/2021. FINDINGS: Heart size and pulmonary vascularity remain within normal limits. There is focal rounded opacity in the upper lobe of the right lung, which likely represents area of infiltrate. There is no pneumothorax or significant pleural fluid. IMPRESSION: Rounded airspace disease in the right upper lobe likely represents area of pneumonitis or pneumonia, and follow-up study is recommended to document resolution. Dictated on workstation # [id number] Dict: 04/27/21 1600 Trans: 04/27/21 1604 [id number] Interpreted by: MICHELLE TOURE MD Electronically signed by: Departure Impression Primary Impression: Lower respiratory tract infection due to COVID-19 virus Additional Impressions: Nausea and vomiting Qualified Codes: R11.14 - Bilious vomiting Acute viral syndrome Disposition: 01 HOME, SELF-CARE Condition: Stable Departure-Patient Inst. Decision time for Depature: 17:02 Referrals: LUIS QUEZADA APRN (PCP/Family) Primary Care Physician Patient Instructions: COVID-19 ED, How to Use a Metered Dose Inhaler ED, How to Use a Spacer, Nausea and Vomiting, Adult ED, Pneumonia, Adult ED, Recovery After COVID-19, Viral Syndrome (DC) Add. Discharge Instructions: Use the inhaler 2 puffs with spacer every 4 hours as needed for cough/shortness of breath Take antibiotic to treat for pneumonia in case it is from a bacteria instead of the Covid Virus. Use the low dose ativan to try and help with your nausea and vomiting Check back with clinic and with your GI doctor about continued symptoms All discharge instructions reviewed with patient and/or family. Voiced understanding. Scripts Azithromycin (Azithromycin) 250 Mg Tablet 250 MG PO DAILY for pneumonia for 4 Days, #4 TAB 0 Refills Prov: IRINEO THORPE MD 04/27/21 Lorazepam (Ativan) 0.5 Mg Tablet 0.5 MG PO TID PRN for NAUSEA/VOMITING for 5 Days, #15 TAB 0 Refills Prov: IRINEO THORPE MD 04/27/21 IRINEO THORPE MD Apr 27, 2021 16:38
[2021-04-27 16:52] VITALS: BP 112/63
[2021-04-27] MEDS ORDERED: AZITHROMYCIN 250 MG TAB (ZITHROMAX) PO STA (16:58)
[2021-04-27] MEDS ORDERED: RT-ALBUTEROL HFA 8.5 GM INHALER IH STA (16:58)
[2021-04-27] MEDS ORDERED: AZIT250T12 PO (17:08)
[2021-04-27] MEDS ORDERED: LORA-404 PO (17:08)
== END 2021-04-27 16:52 ==
LOC: EDUNIT# 14:46 → ER FS 14:49
DX: U07.1 COVID-19 (principal); J22 Unspecified acute lower respiratory infection; R11.2 Nausea with vomiting, unspecified; F41.9 Anxiety disorder, unspecified; G89.29 Other chronic pain; M54.9 Dorsalgia, unspecified; F32.9 Major depressive disorder, single episode, unspecified; Z79.899 Other long term (current) drug therapy; Z79.891 Long term (current) use of opiate analgesic
CPT/HCPCS: 36415; 71045; 80053; 83605; 83735; 84484; 85007; 85027; 85610; 85730; 86141; 93005

== ENCOUNTER 2021-05-03 05:31 | Outpatient (CLI) | payer MEDICAID ==
[~2021-05-03] VITALS: Ht 152.4 cm; Wt 61.2 kg
[~2021-05-03 05:31] MED LIST changes: +LORA-404 PO
[2021-05-03] MEDS ORDERED: DCCL10A2 IM (12:14)
[2021-05-03] MEDS ORDERED: LOPE2CAP PO (12:14)
== END 2021-05-03 12:37 | disposition home or self-care (01) ==
LOC: PREOP 05:31
PROVIDERS: ATTEND Obstetrics & Gynecology
DX: Z01.818 Encounter for other preprocedural examination (principal)

== ENCOUNTER 2021-05-24 05:51 | Day surgery (SDC) | payer MEDICAID ==
[2021-05-24] VITALS (11 sets, daily range): BP systolic 85–113; BP diastolic 47–63
[~2021-05-24] VITALS: Ht 152 cm; Wt 61.2 kg
[~2021-05-24 05:51] MED LIST changes: +DCCL10A2 IM; +LOPE2CAP PO
--- NOTE | 2021-05-24 07:50 | Progress Note-Pre Operative ---
Pre-Operative Progress Note H&P Reviewed The H&P was reviewed, patient examined and no changes noted. Date Seen by Provider: May 24, 2021 Time Seen by Provider: 07:45 Date H&P Reviewed: May 24, 2021 Time H&P Reviewed: 07:45 Pre-Operative Diagnosis: endometriosis, endometrioma, uterine prolapse JOBY MEEKS DO May 24, 2021 07:50
[2021-05-24] MEDS ORDERED: ceFAZolin 2 GM IV Premixed 50 ML IV ONE (08:30)
[2021-05-24 08:49] LABS: BASOPHILS # (AUTO) 0.1 10^3/uL (0.0-0.1); BASOPHILS % (AUTO) 1 % (0-10); EOSINOPHILS # (AUTO) 0.1 10^3/uL (0.0-0.3); EOSINOPHILS % (AUTO) 2 % (0-10); HEMATOCRIT 38 % (35-52); LYMPHOCYTES # (AUTO) 1.5 10^3/uL (1.0-4.0); LYMPHOCYTES % (AUTO) 28 % (12-44); MEAN CORPUSCULAR HEMOGLOBIN 28 pg (25-34); MEAN CORPUSCULAR HGB CONC 32 g/dL (32-36); MEAN CORPUSCULAR VOLUME 88 fL (80-99); MONOCYTES # (AUTO) 0.4 10^3/uL (0.0-1.0); MONOCYTES % (AUTO) 7 % (0-12); NEUTROPHILS # (AUTO) 3.5 10^3/uL (1.8-7.8); NEUTROPHILS % (AUTO) 63 % (42-75); PLATELET COUNT 265 10^3/uL (130-400); WHITE BLOOD COUNT 5.6 10^3/uL (4.3-11.0)
[2021-05-24 08:51] LABS: CLARITY,URINE CLEAR; COLOR,URINE YELLOW; GLUCOSE, URINE (UA) NEGATIVE (NEGATIVE); KETONES,URINE NEGATIVE (NEGATIVE); LEUKOCYTE ESTERASE ,URINE NEGATIVE (NEGATIVE); NITRITE,URINE NEGATIVE (NEGATIVE); PROTEIN,URINE TRACE (NEGATIVE)
[2021-05-24] MEDS: LACTATED RINGERS 1,000 ML IV PRN ×2 (08:52→11:45)
[2021-05-24 08:59] LABS: INR 1.2 (0.8-1.4); PROTHROMBIN TIME PATIENT 15.2 SEC (12.2-14.7)
[2021-05-24 09:07] LABS: BACTERIA,URINE TRACE /HPF; BILIRUBIN,URINE 1+ (NEGATIVE); RBC,URINE 0-2 /HPF; WBC,URINE RARE /HPF
[2021-05-24] MEDS ORDERED: SCOPOLAMINE 1.5 MG (TRANSDERM-SCOP) PATCH TOP ONE (09:45)
[2021-05-24] MEDS ORDERED: ONDANSETRON 4 MG/2 ML (SDV) Z0FRAN IV ONE (09:45)
[2021-05-24] MEDS ORDERED: ONDANSETRON 4 MG/2 ML (SDV) Z0FRAN ONE ×3 (09:54→12:38)
[2021-05-24] MEDS ORDERED: SCOPOLAMINE 1.5 MG (TRANSDERM-SCOP) PATCH ONE (09:54)
[2021-05-24] MEDS ORDERED: ROCURONIUM 10 MG/ML 5 ML SYRINGE IV ONE (09:58)
[2021-05-24] MEDS ORDERED: proPOfol 200 MG/20 ML (DIPRIVAN) VIAL IV ONE (09:58)
[2021-05-24] MEDS ORDERED: LIDOCAINE PF 2% 5 ML (XYLOCAINE) VIAL ONE (09:58)
[2021-05-24] MEDS ORDERED: MIDAZOLAM 2 MG/2 ML (VERSED) VIAL ONE (09:59)
[2021-05-24] MEDS ORDERED: fentaNYL INJ 100 MCG/2 ML AMP ONE (09:59)
[2021-05-24] MEDS ORDERED: LIDOCAINE/EPI 1%-1:200,000 (XYLOCAINE) 30 ML VIAL ONE (10:00)
[2021-05-24] MEDS ORDERED: SEVOFLURANE (ULTANE) 15 ML INHAL SOLN ONE ×2 (10:01→12:03)
[2021-05-24] MEDS ORDERED: GLYCOPYRROLATE 0.2 MG/ML (ROBINUL) 2 ML VIAL ONE (12:01)
[2021-05-24] MEDS ORDERED: NEOSTIGMINE 3 MG/3 ML VIAL ONE (12:01)
[2021-05-24] MEDS ORDERED: CHLORASEPTIC LOZENGE MM PRN (12:15)
[2021-05-24] MEDS ORDERED: LACTATED RINGERS 1,000 ML IV SCH ×2 (12:15)
[2021-05-24] MEDS ORDERED: NALOXONE 0.4 MG/ML 1 ML (NARCAN) VIAL IV PRN ×2 (12:15)
--- NOTE | 2021-05-24 12:19 | Operative Report ---
Operative Report Date of Procedure/Surgery May 24, 2021 Surgeon (s) JOBY MEEKS DO Manager System (s): Ramu Narayan, MS IV Post-Operative Diagnosis endometriosis uterine prolapse Procedure Performed RaTH, bilateral salpingectomy lysis of omental adhesion Description of Procedure Anesthesia Type: General Estimated blood loss (mL): minimal Specimen(s) collected/removed uterus and bilateral tubes (partial) Description of the Procedure After informed consent was obtained, patient was taken into the operating room where general anesthetic was found to be adequate. She was prepped and draped in the usual sterile fashion in the dorsal lithotomy position. A Ibrahim catheter was placed. A speculum was placed in the vagina. The cervix was visualized and the anterior lip was grasped with a sharp toothed tenaculum. The uterus was sounded and depth was approximately 8 centimeters. I placed the Taylor device (8 cm) and a 3.0 cm collar was advanced over the cervix. I inserted the Taylor without difficulty, inflating the balloon and securing it around the fornix of the cervix. The collar was then secured with sutures at 12 o'clock. Attention was then turned to the patient's abdomen. The skin was injected with 0.25% Marcaine. A supraumbilical incision was made about 8 mm in length. A Veress needle was inserted and I confirmed intraabdominal placement with a drop in pressure and the saline drop test. The opening pressure was 8 mmHg. I then insufflated the abdomen to a maximum of 15 mmHg with warmed CO2 gas. I placed an additional 8 mm trocar approximately 15 cm lateral to the umbilicus on the left. The second robotic port was placed about 15 cm lateral to the right of the umbilical placement. This was an 8 mm trocar. These were placed under direct visualization of the laparoscope. 0.25% Marcaine was injected prior to placement of all trocars. She had an omental adhesion from previous surgery and this extended from inferior to the umbilicus to just above the fundus. It was only omentum, but was very thickened. There was no bowel involvement. I used a laparoscopic shear and grasper to take down this in a blunt and sharp fashion prior to docking the robot. One this was completed and there was hemostasis ensured, I then inspected the pelvis. There were some adhesions of the left tube and ovary. It was determined that the procedure could be completed robotically. When all placements were confirmed, the patient was placed in steep Trendelenburg allowing adequate visualization and the robot was brought in for docking. The docking was accomplished without difficulty. I then took over the command of the robot utilizing the synchroseal and monopolar cintia. Initially, I took down the adhesions of the left tube and ovary in a blunt and sharp fashion with the cintia and cautery. Then, I proceede d with a bilateral salpingectomy. I incised the mesosalpinx bilaterally with the monopolar cintia. Then I grasped the round ligaments bilaterally and cauterized with bipolar cautery and then cut with my cintia. I then grasped the uterine ovarian ligaments separately bilaterally and cauterized and cut with the synchroseal. I then moved my dissection to the posterior leaves of the broad ligament. I dissected the posterior leaves of the broad ligament off the uterine arteries skeletonizing them bilaterally. I then took a second clamp with the synchroseal and with the cintia, transected the vessels away from the lateral aspect to the cervical stroma. There were very extensive vesicouterine adhesions from the previous sections. I dissected the anterior peritoneum off the lower uterine segment. I continually pushed the bladder back and I took excessively great care and I was eventually able to dissect the vesicouterine peritoneum off the lower uterine segment. I then dissected in a V fashion towards the midline between the uterosacral ligaments. This allowed me to skeletonize the uterine vessels bilaterally. The balloon on the TAYLOR was insufflated. This allowed me to see the TAYLOR circumferentially. I then performed a colpotomy anteriorly and then amputate with cervix away from the vaginal fornix. I then continued the colpotomy circumferentially. At this point, the uterus was removed through the vagina. The mortgage loan assistant left a sponge in the vagina to keep the pneumoperitoneum. Endometriosis was fulgerated off of the ovaries bilaterally. I then irrigated the pelvis and there was hemostasis. I then began closure of the vaginal cuff. I closed the apices of the vaginal cuff with 2-0 Vicryl V lock sutures with a colposuspension through the uterosacral ligaments. This suspended the apices of the vaginal cuff. I extended this to the midline from both sides and overlapped the V lock sutures in the midline. Excellent closure is noted and hemostasis is achieved. All the needles were removed from the patient's abdomen. Now, the robotic instruments were removed and the robot was docked back to laparoscopy. The pelvis was irrigated. There was no active bleeding noted. Bilateral ureters were seen the entire time during the surgery and were peristalsing. There was no excessive bleeding noted. The trocars were removed under direct visualization. The laparoscopic sites were visualized and found to be hemostatic. The trocar sites were injected with 0.25% Marcaine. The skin incisions were closed with 4-0 Monocryl in a subcuticular fashion and then with Dermabond. Op sites were placed over the incision sites. The instruments were removed from the vagina and I noted there were no abrasions. Sponge, lap, needle and instrument counts correct times two. Patient was awakened and taken to recovery in a stable condition. Findings of the Procedure slightly enlarged uterus, omentum attached to anterior abdominal wall and omentum following previous surgery. No bowel adhesion Scarring of left tube to ovary endometriosis on bilateral tubes (scattered), sivakumar Masters window in the [place] on the right Allergies and Home Medications Allergies Coded Allergies: clindamycin (Verified Allergy, Intermediate, oral blisters, SOB, 07/29/20) famotidine (Verified Allergy, Mild, Hives, 03/15/21) Given at the same time as fentanyl. Hives the IV site. fentanyl (Verified Allergy, Mild, Hives, 03/15/21) Given simultaneously with Pepcid. Hives at IV site. cinnamon (Verified Allergy, Unknown, 07/29/20) tramadol (Verified Allergy, Unknown, POSSIBLE SEIZURE, 05/03/21) ALCOHOL INTAKE WHILE TAKING Patient Home Medication List Home Medication List Reviewed: Yes Acetaminophen (Acetaminophen) 500 Mg Tablet, 1,000 MG PO Q8HR Prescribed by: JOBY MEEKS on 05/24/21 1222 Dicyclomine HCl (Bentyl) 20 Mg/2 Ml Inj, 20 MG IM UD, (Reported) Entered as Reported by: RAIS MCCRACKEN on 05/03/21 1214 Docusate Sodium (Docusate Sodium) 100 Mg Capsule, 100 MG PO BID Prescribed by: JOBY MEEKS on 05/24/21 1222 Ibuprofen (Ibu) 600 Mg Tablet, 600 MG PO Q6HR Prescribed by: JOBY MEEKS on 05/24/21 1222 Loperamide HCl (Loperamide) Unknown Strength Capsule, Unknown Dose PO, (Reported) Entered as Reported by: ARIS MCCRACKEN on 05/03/21 1214 Simethicone (Mi-Acid) 80 Mg Tab.chew, 80 MG PO Q2HR PRN for gas Prescribed by: JOBY MEEKS on 05/24/21 1222 JOBY MEEKS DO May 24, 2021 12:19
[2021-05-24] MEDS ORDERED: ACET-93 PO (12:22)
[2021-05-24] MEDS ORDERED: IBUP-844 PO (12:22)
[2021-05-24] MEDS ORDERED: DOCU100C37 PO (12:22)
[2021-05-24] MEDS ORDERED: SMT80CT PO (12:22)
--- NOTE | 2021-05-24 12:23 | Anesthesia-General Post-Op ---
General Patient Condition Mental Status/LOC: Same as Preop Cardiovascular: Satisfactory Nausea/Vomiting: Absent Respiratory: Satisfactory Pain: Controlled Complications: Absent Post Op Complications Complications None Follow Up Care/Instructions Patient Instructions None needed. Anesthesia/Patient Condition Patient Condition Patient is doing well, no complaints, stable vital signs, no apparent adverse anesthesia problems. No complications reported per nursing. SNEHA HAYS CRNA May 24, 2021 12:23
--- NOTE | 2021-05-24 12:26 | Discharge Inst-Women's Service ---
Discharge Inst-Women's Serv Depart Medication/Instructions New, Converted or Re-Newed RX: Transmitted to Pharmacy (oxycodone previously transmitted to pharmacy) Instructions no lifting over 25 lbs no driving for 1 week or no longer requiring pain medications nothing in the vagina until cleared by physician Final Diagnosis endometriosis uterine prolapse omental adhesions Problems Reviewed?: Yes Consults/Follow Up Additional Follow Up: Yes (1 week for incision check with [facility] and 8-12 weeks for postop visit) Activity Activity: Activity as Tolerated (see abov) Driving Instructions: No Driving for 1 Week NO SMOKING: NO SMOKING Nothing Inside Vagina: No Douching, No Coldfoot, No Tampons Diet Discharge Diet: No Restrictions Symptoms to Report to : Bleeding Excessive, Pain Increased, Fever Over 101 Degrees F, Vaginal Bleeding Increase, Cramps in Feet or Legs, Vaginal Discharge Foul For Any Problems or Questions: Contact Your Physician Skin/Wound Care Infection Signs and Symptoms: Increased Redness, Foul Odor of Wound, Increased Drainage, Skin Itchy or Has a Rash, Increased Swelling, Temperature Above 101 F Operative Area Clean and Dry: You May Remove Bandage (in 72 hours) Stitches/Maggy/Dermabond: Dermabond Bathing Instructions: JOBY Frazier DO May 24, 2021 12:26
[2021-05-24] MEDS ORDERED: morphine INJ 10 MG/ML 1ML (SYR OR VIAL) IVP ONE (12:30)
[2021-05-24] MEDS ORDERED: PROMETHAZINE INJ 25 MG/ML (PHENERGAN) AMP IVP ONE (12:30)
[2021-05-24] MEDS ORDERED: ONDANSETRON 4 MG/2 ML (SDV) Z0FRAN IVP PRN (12:30)
[2021-05-24] MEDS ORDERED: fentaNYL INJ 100 MCG/2 ML AMP IVP ONE (12:30)
[2021-05-24] MEDS ORDERED: HYDROmorphone 2 MG/ML VIAL (DILAUDID) IV ONE (12:30)
[2021-05-24] MEDS ORDERED: MEPERIDINE (DEMEROL) INJ 50 MG/ML IVP ONE (12:30)
[2021-05-24] MEDS ORDERED: PROMETHAZINE INJ 25 MG/ML (PHENERGAN) AMP ONE (12:38)
[2021-05-24] MEDS ORDERED: HYDROmorphone 2 MG/ML VIAL (DILAUDID) ONE (12:38)
[2021-05-24] MEDS ORDERED: KETOROLAC 30 MG/ML VIAL ONE (12:50)
[2021-05-24] MEDS: KETOROLAC 30 MG/ML VIAL IV SCH ×2 (12:53→19:28)
[2021-05-24] MEDS: morphine INJ 4 MG/ML 1 ML (VIAL/SYRINGE) IV PRN ×2 (14:20→17:38)
[2021-05-24] MEDS: ACETAMINOPHEN 500 MG TAB (TYLENOL) PO SCH ×2 (15:02→22:24)
[2021-05-24] MEDS: ONDANSETRON 4 MG (ZOFRAN) ORAL DISSOLVE TAB PO PRN (18:39)
[2021-05-24] MEDS: DOCUSATE SODIUM 100 MG (COLACE) CAP PO SCH (19:28)
[2021-05-24] MEDS: SIMETHICONE 80 MG (MYLICON) CHEW PO PRN (19:36)
[2021-05-24] MEDS ORDERED: traZODone 50 MG (DESYREL) TAB PO SCH (21:00)
[2021-05-25] MEDS: SIMETHICONE 80 MG (MYLICON) CHEW PO PRN ×3 (00:44→12:27)
[2021-05-25] MEDS: KETOROLAC 30 MG/ML VIAL IV SCH ×2 (00:44→05:23)
[2021-05-25 00:55] VITALS: BP 87/50
[2021-05-25] MEDS: ACETAMINOPHEN 500 MG TAB (TYLENOL) PO SCH ×2 (05:23→13:46)
[2021-05-25 05:33] VITALS: BP 90/54
--- NOTE | 2021-05-25 08:19 | Progress Note ---
[facility] 05/25/21 0819: Subjective Date Seen by a Provider: May 25, 2021 Time Seen by a Provider: 08:13 Subjective/Events-last exam POD 1 S/P lysis of omental adhesion and RaTH, bilateral salpingectomy for endometriosis and uterine prolapse Patient reports soreness and nausea. Overall, patient reports feeling much improved, States that she feels comfortable going home this morning. Anti-nausea meds help with her "queasy" feeling. Does not have an appetite this morning, but would eat if she did have an appetite Review of Systems General: No Chills, No Other (fevers) Pulmonary: No Dyspnea, No Cough Gastrointestinal: Nausea, Other (Abdominal Soreness) Objective Exam Last Set of Vital Signs Vital Signs Date Time Temp Pulse Resp B/P (MAP) Pulse Ox O2 Delivery O2 Flow Rate FiO2 05/25/21 05:33 36.7 72 90/54 (66) 05/24/21 19:49 16 97 Room Air 05/24/21 12:30 6 Capillary Refill : Less Than 3 Seconds I&O Intake and Output 05/25/21 00:00 Intake Total 1050 ml Output Total 50 ml Balance 1000 ml IV Total 1050 ml Output Urine Total 50 ml General: Alert, Oriented X3, Cooperative, No Acute Distress HEENT: EOMI Heart: Regular Rate, Normal S1, Normal S2 Abdomen: Soft, Other (Tenderness to palpation at the incisions) Extremities: No Tenderness/Swelling (in the lower extremities), Other (No calf pain) Skin: Other (Incisions covered with dressings) Psych/Mental Status: Mental Status NL, Mood NL Results Lab Laboratory Tests 05/24/21 08:35: White Blood Count 5.6, Red Blood Count 4.31, Hemoglobin 12.0, Hematocrit 38, Mean Corpuscular Volume 88, Mean Corpuscular Hemoglobin 28, Mean Corpuscular Hemoglobin Concent 32, Red Cell Distribution Width 14.2, Platelet Count 265, Mean Platelet Volume 11.0, Immature Granulocyte % (Auto) 0, Neutrophils (%) (Auto) 63, Lymphocytes (%) (Auto) 28, Monocytes (%) (Auto) 7, Eosinophils (%) (Auto) 2, Basophils (%) (Auto) 1, Neutrophils # (Auto) 3.5, Lymphocytes # (Auto) 1.5, Monocytes # (Auto) 0.4, Eosinophils # (Auto) 0.1, Basophils # (Auto) 0.1, Immature Granulocyte # (Auto) 0.0, Prothrombin Time 15.2H, INR Comment 1.2, Urine Color YELLOW, Urine Clarity CLEAR, Urine pH 6.0, Urine Specific [place] >=1.030, Urine Protein TRACEH, Urine Glucose (UA) NEGATIVE, Urine Ketones NEGATIVE, Urine Nitrite NEGATIVE, Urine Bilirubin 1+H, Urine Urobilinogen 0.2, Urine Leukocyte Esterase NEGATIVE, Urine RBC (Auto) TRACE-IH, Urine RBC 0-2, Urine WBC RARE, Urine Squamous Epithelial Cells 2-5, Urine Crystals NONE, Urine Bacteria TRACE, Urine Casts NONE, Urine Mucus SMALLH, Urine Culture Indicated NO Microbiology 05/24/21 MRSA Screen - Final, Complete MRSA not isolated Assessment/Plan Assessment/Plan Assess & Plan/Chief Complaint POD 1 S/P lysis of omental adhesion and RaTH, bilateral salpingectomy - Pain controlled, - Plan to discharge today as patient feels comfortable going home - Full diet or continue diet as tolerated - Continue OOB activity as tolerated Nausea - continue anti-nausea medication as prescribed JOBY MEEKS DO 05/25/21 0945: Subjective Subjective/Events-last exam States pain is not well controlled. Having lower abdominal pain. States she hasn't urinated as much since the catheter was removed, but IVf were discontinued as she was taking po fluids well. BP is low but no tachycardia. Her normal BP is low at home and per our previous records. Will recheck CBC and bladder scan, but suspect that she will be able to be discharged later today. Assessment/Plan Assessment/Plan Assess & Plan/Chief Complaint POD 1 s/p RATH, eliza salpingectomy, lysis of omental adhesion Plan DC today. check CBC and bladder scan. Increase oxycodone per TAG. Supervisory-Addendum Brief Verification & Attestation Participated in pt care: history, physical Personally performed: exam Care discussed with: Medical Student Procedures: n/a I have seen and examined with student patient and agree with assessment [facility] May 25, 2021 08:19 JOBY MEEKS DO May 25, 2021 09:45
[2021-05-25 08:30] VITALS: BP 88/50
[2021-05-25] MEDS: DOCUSATE SODIUM 100 MG (COLACE) CAP PO SCH (08:54)
[2021-05-25] MEDS: ONDANSETRON 4 MG (ZOFRAN) ORAL DISSOLVE TAB PO PRN (09:36)
[2021-05-25 09:54] LABS: BASOPHILS # (AUTO) 0.1 10^3/uL (0.0-0.1); BASOPHILS % (AUTO) 1 % (0-10); EOSINOPHILS # (AUTO) 0.1 10^3/uL (0.0-0.3); EOSINOPHILS % (AUTO) 1 % (0-10); HEMATOCRIT 33 % (35-52); HEMOGLOBIN 10.5 g/dL (11.5-16.0); LYMPHOCYTES # (AUTO) 1.8 10^3/uL (1.0-4.0); LYMPHOCYTES % (AUTO) 18 % (12-44); MEAN CORPUSCULAR HEMOGLOBIN 29 pg (25-34); MEAN CORPUSCULAR HGB CONC 32 g/dL (32-36); MEAN CORPUSCULAR VOLUME 89 fL (80-99); MEAN PLATELET VOLUME 10.9 fL (9.0-12.2); MONOCYTES # (AUTO) 0.9 10^3/uL (0.0-1.0); MONOCYTES % (AUTO) 9 % (0-12); NEUTROPHILS % (AUTO) 70 % (42-75); PLATELET COUNT 231 10^3/uL (130-400); WHITE BLOOD COUNT 9.9 10^3/uL (4.3-11.0)
[2021-05-25 10:45] VITALS: BP 88/50
[2021-05-25] MEDS ORDERED: IBUPROFEN 600 MG (MOTRIN) TAB PO SCH ×3 (12:00→18:00)
[2021-05-25 12:30] VITALS: BP 93/55
[2021-05-25 14:30] VITALS: BP 93/55
== END 2021-05-25 14:30 | disposition home or self-care (01) ==
LOC: SDC 05:51 → WS 13:20 → SDC 05-25 14:30
PROVIDERS: ATTEND Obstetrics & Gynecology
DX: N81.2 Incomplete uterovaginal prolapse (principal); N73.6 Female pelvic peritoneal adhesions (postinfective); N80.1 Endometriosis of ovary; N80.3 Endometriosis of pelvic peritoneum; F17.210 Nicotine dependence, cigarettes, uncomplicated; Z98.51 Tubal ligation status
CPT/HCPCS: 36415; 81000; 84703; 85025; 85610; 87081; 88305; 94664

== ENCOUNTER 2021-09-29 14:50 | Emergency (ER) | payer MEDICAID ==
[~2021-09-29] VITALS: Ht 150 cm; Wt 59.0 kg
[~2021-09-29 14:50] MED LIST changes: +ACET-11 PO; -ACET1TAB43 PO; +DOCU100C37 PO; +SMT80CT PO
[2021-09-29] MEDS ORDERED: AUGMENTIN 875 MG TAB (AMOXICILLIN/CLAVULANATE) PO ONE (16:00)
[2021-09-29] MEDS ORDERED: KETOROLAC 60 MG/2 ML VIAL IM ONE (16:00)
--- NOTE | 2021-09-29 16:01 | ED EENT ---
History of Present Illness General Chief Complaint: Dental Problems/Pain Stated Complaint: ABCESS TOOTH, SOB,DIZZINESS Nursing Triage Note: pt states upper rt tooth infection, on abx from dentist and getting dizzy when up, not eating or drinking well Source: patient Exam Limitations: no limitations History of Present Illness Date Seen by Provider: Sep 29, 2021 Time Seen by Provider: 16:01 Initial Comments This is a well-appearing 30-year-old female who presented the ER with complaints of right upper tooth infection and pain. States that she was evaluated by Dr. Basurto with [facility] with dentistry a few days ago and was prescribed amoxicillin. Plan is to have her tooth pulled on October 19. However she states that the pain is increasing, and when she woke today the right side of her face feels heavy. States that she has had difficulty eating and drinking cold or hot foods. She has to have her food sit out at room temperature before she is able to ingest. No fever. Has intermittent chills. No nausea, vomiting, abdominal pain, sore throat. Allergies and Home Medications Allergies Coded Allergies: clindamycin (Verified Allergy, Intermediate, oral blisters, SOB, 07/29/20) famotidine (Verified Allergy, Mild, Hives, 03/15/21) Given at the same time as fentanyl. Hives the IV site. fentanyl (Verified Allergy, Mild, Hives, 03/15/21) Given simultaneously with Pepcid. Hives at IV site. cinnamon (Verified Allergy, Unknown, 07/29/20) tramadol (Verified Allergy, Unknown, POSSIBLE SEIZURE, 05/03/21) ALCOHOL INTAKE WHILE TAKING Patient Home Medication List Home Medication List Reviewed: Yes Acetaminophen (Acetaminophen) 500 Mg Tablet, 1,000 MG PO Q8HR Prescribed by: JOBY MEEKS on 05/24/21 1222 Amoxicillin/Potassium Clav (Amox Tr-K Clv 875-125 mg Tab) 875 Mg-125 Mg Tablet, 1 EACH PO Q12H Prescribed by: ELIZA HOFF on 09/29/21 1619 Dicyclomine HCl (Bentyl) 20 Mg/2 Ml Inj, 20 MG IM UD, (Reported) Entered as Reported by: ARIS MCCRACKEN on 05/03/21 1214 Docusate Sodium (Docusate Sodium) 100 Mg Capsule, 100 MG PO BID Prescribed by: JOBY MEEKS on 05/24/21 1222 Ibuprofen (Ibu) 600 Mg Tablet, 600 MG PO Q6HR Prescribed by: JOBY MEEKS on 05/24/21 1222 Loperamide HCl (Loperamide) Unknown Strength Capsule, Unknown Dose PO, (Reported) Entered as Reported by: ARIS Giselle KAYKAY on 05/03/21 1214 Simethicone (Mi-Acid) 80 Mg Tab.chew, 80 MG PO Q2HR PRN for gas Prescribed by: JOBY MEEKS on 05/24/21 1222 Review of Systems Review of Systems Constitutional: see HPI Eyes: No Symptoms Reported Ears: No Symptoms Reported Nose: no symptoms reported Mouth: see HPI Throat: no symptoms reported Respiratory: no symptoms reported Cardiovascular: no symptoms reported Gastrointestinal: no symptoms reported Skin: no symptoms reported Neurological: No Symptoms Reported Past Onrnyjs-Zqhqks-Ocvrbl Hx Patient Social History Use of E-Cig and/or Vaping dev: Yes E-Cig or Vaping type used: Nicotine Substance use?: No Alcohol Use?: No Immunizations Up To Date Tetanus Booster (TDap): More than 5yrs PED Vaccines UTD: Yes First/Initial COVID19 Vaccinat: NO Second COVID19 Vaccination Jimmie: NO Third COVID19 Vaccination Date: NO Seasonal Allergies Seasonal Allergies: No Past Medical History Surgery/Hospitalization HX: IBS, endometriosis, chronic abdominal pain Surgeries: Yes (Umbilical herniorrhaphy 07/04/12,D&C, ENDOMETRIOSIS SCRAPING, d&c, Mesh Tommy) Abdominal, Adenoidectomy, Appendectomy, Bowel Surgery, Gallbladder, Tonsillectomy, Tubal Ligation Respiratory: No Currently Using CPAP: No Currently Using BIPAP: No Cardiac: No Neurological: No (only if pt takes tramadol. 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 No Pertinent Family Hx Physical Exam Vital Signs Vital Signs - First Documented 09/29/21 15:25 Temp 36.9 Pulse 73 Resp 18 B/P (MAP) 120/77 (91) Pulse Ox 99 O2 Delivery Room Air Height, Weight, BMI Height: 4'10.00" Weight: 125lbs. 0oz. [id number]; 26.00 BMI Method:Stated General Appearance: WD/WN, no apparent distress Eyes: bilateral eye normal inspection, bilateral eye PERRL, bilateral eye EOMI Ears: bilateral ear auricle normal, bilateral ear canal normal, bilateral ear TM normal Nose: normal inspection; No discharge Mouth/Throat: dental tenderness; No excessive drooling, No mandibular swelling, No maxillary swelling, No tongue swollen, No trismus; other (pain, loose tooth #5,6) Neck: full range of motion, supple, normal inspection Cardiovascular: regular rate, rhythm, no murmur Respiratory: lungs clear, normal breath sounds, no respiratory distress, no accessory muscle use Gastrointestinal: normal bowel sounds, non tender, soft Neurologic/Psychiatric: alert, normal mood/affect, oriented x 3 Skin: normal color, warm/dry Progress/Results/Core Measures Results/Orders My Orders Orders - ELIZA HOFF APRN Ketorolac Injection (Toradol Injection) (09/29/21 16:00) Amoxicillin/Clavulanate Tablet (Augmenti (09/29/21 16:00) Medications Given in ED Current Medications Medications Dose Ordered Sig/Damion Route Start Time Stop Time Status Last Admin Dose Admin Amoxicillin/ Clavulanate Potassium 875 mg ONCE ONCE PO 09/29/21 16:00 09/29/21 16:01 DC 09/29/21 16:48 875 MG Ketorolac Tromethamine 60 mg ONCE ONCE IM 09/29/21 16:00 09/29/21 16:01 DC 09/29/21 15:57 60 MG Vital Signs/I&O 09/29/21 09/29/21 09/29/21 15:25 15:57 16:50 Temp 36.9 36.9 Pulse 73 65 Resp 18 18 B/P (MAP) 120/77 (91) 110/73 Pulse Ox 99 99 O2 Delivery Room Air Blood Pressure Mean: 91 Departure Impression Primary Impression: Pain, dental Disposition: 01 HOME, SELF-CARE Condition: Stable Departure-Patient Inst. Decision time for Depature: 16:07 Referrals: [facility] (PCP) Primary Care Physician ULIS QUEZADA APRN (Family) Primary Care Physician Patient Instructions: Acute Pain, Adult (DC) Add. Discharge Instructions: Plan: 1. Call your dentist first thing in the morning to schedule closer follow up. 2. Take Ibuprofen 800mg by mouth every 8 hours for pain, take with food. 3. We will change your antibiotics to Augmentin, first dose given in ER. 4. Return for any new, concerning, or worsening symptoms. All discharge instructions reviewed with patient and/or family. Voiced understanding. Scripts Amoxicillin/Potassium Clav (Amox Tr-K Clv 875-125 mg Tab) 875 Mg-125 Mg Tablet 1 EACH PO Q12H for 7 Days, #13 TAB 0 Refills Prov: ELIZA HOFF APRN 09/29/21 ELIZA HOFF PROGRAM SCHEDULER Sep 29, 2021 16:01
[2021-09-29] MEDS ORDERED: AMOX1TAB12 PO (16:19)
[2021-09-29 16:50] VITALS: BP 110/73
== END 2021-09-29 16:51 | disposition home or self-care (01) ==
LOC: EDUNIT# 14:50 → ER 14:51
DX: K08.89 Other specified disorders of teeth and supporting structures (principal); F17.210 Nicotine dependence, cigarettes, uncomplicated; Z88.1 Allergy status to other antibiotic agents; Z88.5 Allergy status to narcotic agent; Z28.310 Unvaccinated for COVID-19
CPT/HCPCS: 99283

== ENCOUNTER 2021-10-07 21:46 | Observation (INO) | payer MEDICAID ==
[~2021-10-07] VITALS: Ht 147 cm; Wt 61.0 kg
--- NOTE | 2021-10-07 22:25 | ED GI ---
General Chief Complaint: Abdominal/GI Problems Stated Complaint: COUGH,VOMITTING,LOWER BACK PAIN Nursing Triage Note: Pt c/o sore throat, cough, and n/v since yesterday. History of Present Illness Date Seen by Provider: Oct 07, 2021 Time Seen by Provider: 22:20 Initial Comments 30-year-old female with no significant PMH, is here with complaints of sore th roat, cough, lethargy, myalgia, nausea and vomiting, epigastric pain, loss of appetite. No known sick contacts. Denies shortness of breath, chest pain, palpitations, diarrhea, acid reflux, dizziness. Allergies and Home Medications Allergies Coded Allergies: clindamycin (Verified Allergy, Intermediate, oral blisters, SOB, 07/29/20) famotidine (Verified Allergy, Mild, Hives, 03/15/21) Given at the same time as fentanyl. Hives the IV site. fentanyl (Verified Allergy, Mild, Hives, 03/15/21) Given simultaneously with Pepcid. Hives at IV site. cinnamon (Verified Allergy, Unknown, 07/29/20) tramadol (Verified Allergy, Unknown, POSSIBLE SEIZURE, 05/03/21) ALCOHOL INTAKE WHILE TAKING Patient Home Medication List Home Medication List Reviewed: Yes Acetaminophen (Acetaminophen) 500 Mg Tablet, 1,000 MG PO Q8HR Prescribed by: JOBY MEEKS on 05/24/21 1222 Amoxicillin/Potassium Clav (Amox Tr-K Clv 875-125 mg Tab) 875 Mg-125 Mg Tablet, 1 EACH PO Q12H Prescribed by: ELIZA HOFF on 09/29/21 1619 Dicyclomine HCl (Bentyl) 20 Mg/2 Ml Inj, 20 MG IM UD, (Reported) Entered as Reported by: ARIS MCCRACKEN on 05/03/21 1214 Docusate Sodium (Docusate Sodium) 100 Mg Capsule, 100 MG PO BID Prescribed by: JOBY MEEKS on 05/24/21 1222 Ibuprofen (Ibu) 600 Mg Tablet, 600 MG PO Q6HR Prescribed by: JOBY MEEKS on 05/24/21 1222 Loperamide HCl (Loperamide) Unknown Strength Capsule, Unknown Dose PO, (Reported) Entered as Reported by: ARIS MCCRACKEN on 05/03/21 1214 Simethicone (Mi-Acid) 80 Mg Tab.chew, 80 MG PO Q2HR PRN for gas Prescribed by: JOBY MEEKS on 05/24/21 1222 Review of Systems Review of Systems Constitutional: malaise EENTM: Throat Pain Respiratory: Cough Cardiovascular: No Symptoms Reported Gastrointestinal: Abdominal Pain, Nausea, Poor Appetite, Poor Fluid Intake, Vomiting Genitourinary: No Symptoms Reported Musculoskeletal: no symptoms reported Skin: no symptoms reported Psychiatric/Neurological: No Symptoms Reported Endocrine: No Symptoms Reported Hematologic/Lymphatic: No Symptoms Reported Past Ydvmqig-Vadqrj-Rmbxdg Hx Patient Social History Tobacco Use?: No Use of E-Cig and/or Vaping dev: No Substance use?: No Alcohol Use?: No Pt feels they are or have been: No Immunizations Up To Date Tetanus Booster (TDap): More than 5yrs PED Vaccines UTD: Yes First/Initial COVID19 Vaccinat: denies Second COVID19 Vaccination Jimmie: NO Third COVID19 Vaccination Date: NO Seasonal Allergies Seasonal Allergies: No Past Medical History Surgery/Hospitalization HX: IBS, endometriosis, chronic abdominal pain Surgeries: Yes (Umbilical herniorrhaphy 07/04/12,D&C, ENDOMETRIOSIS SCRAPING, d&c, Mesh Tommy) Abdominal, Adenoidectomy, Appendectomy, Bowel Surgery, Gallbladder, Tonsillectomy, Tubal Ligation Respiratory: No Currently Using CPAP: No Currently Using BIPAP: No Cardiac: No Neurological: No (only if pt takes tramadol. 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 No Pertinent Family Hx Physical Exam Vital Signs Vital Signs - First Documented 10/07/21 21:55 Temp 36.6 Pulse 94 Resp 17 B/P (MAP) 125/92 (103) Pulse Ox 98 O2 Delivery Room Air Capillary Refill : Less Than 3 Seconds Height/Weight/BMI Height: 4'10.00" Weight: 125lbs. 0oz. 56.258017rc; 27.00 BMI Method:Stated General Appearance: WD/WN, no apparent distress HEENT: PERRL/EOMI, TMs normal, pharyngeal erythema Neck: non-tender, full range of motion, supple Respiratory: chest non-tender, lungs clear, normal breath sounds, no respiratory distress Cardiovascular: normal peripheral pulses, regular rate, rhythm, no edema Gastrointestinal: normal bowel sounds, soft, tenderness (epigastric tenderness) Extremities: normal range of motion Back: normal inspection, no CVA tenderness Neurologic/Psychiatric: no motor/sensory deficits, alert, oriented x 3 Skin: normal color Progress/Results/Core Measures Results/Orders Lab Results Laboratory Tests Test 10/07/21 21:56 10/07/21 22:45 10/07/21 22:49 10/07/21 23:11 Range/Units Urine Color YELLOW Urine Clarity CLEAR Urine pH 6.0 5-9 Urine Specific [place] >=1.030 1.016-1.022 Urine Protein TRACE H NEGATIVE Urine Glucose (UA) NEGATIVE NEGATIVE Urine Ketones NEGATIVE NEGATIVE Urine Nitrite NEGATIVE NEGATIVE Urine Bilirubin NEGATIVE NEGATIVE Urine Urobilinogen 1.0 < = 1.0 MG/DL Urine Leukocyte Esterase NEGATIVE NEGATIVE Urine RBC (Auto) NEGATIVE NEGATIVE Urine RBC 5-10 H /HPF Urine WBC 5-10 H /HPF Urine Squamous Epithelial Cells 25-50 H /HPF Urine Crystals NONE /LPF Urine Bacteria MODERATE H /HPF Urine Casts NONE /LPF Urine Mucus LARGE H /LPF Urine Culture Indicated NO Urine Test NEGATIVE NEGATIVE Urine Opiates Screen POSITIVE H NEGATIVE Urine Oxycodone Screen NEGATIVE NEGATIVE Urine Methadone Screen NEGATIVE NEGATIVE Urine Propoxyphene Screen NEGATIVE NEGATIVE Urine Barbiturates Screen NEGATIVE NEGATIVE Ur Tricyclic Antidepressants Screen NEGATIVE NEGATIVE Urine Phencyclidine Screen NEGATIVE NEGATIVE Urine Amphetamines Screen NEGATIVE NEGATIVE Urine Methamphetamines Screen NEGATIVE NEGATIVE Urine Benzodiazepines Screen NEGATIVE NEGATIVE Urine Cocaine Screen NEGATIVE NEGATIVE Urine Cannabinoids Screen NEGATIVE NEGATIVE White Blood Count 3.4 L 4.3-11.0 10^3/uL Red Blood Count 4.29 3.80-5.11 10^6/uL Hemoglobin 12.3 11.5-16.0 g/dL Hematocrit 38 35-52 % Mean Corpuscular Volume 88 80-99 fL Mean Corpuscular Hemoglobin 29 25-34 pg Mean Corpuscular Hemoglobin Concent 33 32-36 g/dL Red Cell Distribution Width 13.7 10.0-14.5 % Platelet Count 196 130-400 10^3/uL Mean Platelet Volume 10.5 9.0-12.2 fL Immature Granulocyte % (Auto) 0 % Neutrophils (%) (Auto) 55 42-75 % Lymphocytes (%) (Auto) 18 12-44 % Monocytes (%) (Auto) 25 H 0-12 % Eosinophils (%) (Auto) 1 0-10 % Basophils (%) (Auto) 1 0-10 % Neutrophils # (Auto) 1.9 1.8-7.8 10^3/uL Lymphocytes # (Auto) 0.6 L 1.0-4.0 10^3/uL Monocytes # (Auto) 0.9 0.0-1.0 10^3/uL Eosinophils # (Auto) 0.0 0.0-0.3 10^3/uL Basophils # (Auto) 0.0 0.0-0.1 10^3/uL Immature Granulocyte # (Auto) 0.0 0.0-0.1 10^3/uL Neutrophils % (Manual) 63 % Lymphocytes % (Manual) 16 % Monocytes % (Manual) 13 % Eosinophils % (Manual) 8 % Sodium Level 140 135-145 MMOL/L Potassium Level 3.2 L 3.6-5.0 MMOL/L Chloride Level 105 98-107 MMOL/L Carbon Dioxide Level 25 21-32 MMOL/L Anion Gap 10 5-14 MMOL/L Blood Urea Nitrogen 19 H 7-18 MG/DL Creatinine 0.84 0.60-1.30 MG/DL Estimat Glomerular Filtration Rate 96 BUN/Creatinine Ratio 23 Glucose Level 86 70-105 MG/DL Calcium Level 8.8 8.5-10.1 MG/DL Corrected Calcium 8.6 8.5-10.1 MG/DL Magnesium Level 1.9 1.6-2.4 MG/DL Total Bilirubin 0.2 0.1-1.0 MG/DL Aspartate Amino Transf (AST/SGOT) 12 5-34 U/L Alanine Aminotransferase (ALT/SGPT) 10 0-55 U/L Alkaline Phosphatase 50 40-136 U/L Total Protein 7.0 6.4-8.2 GM/DL Albumin 4.3 3.2-4.5 GM/DL Lipase 42 8-78 U/L Serum Alcohol < 10 <10 MG/DL Monoscreen NEGATIVE NEGATIVE Influenza Type A (RT-PCR) Not Detected Not Detecte Influenza Type B (RT-PCR) Not Detected Not Detecte SARS-CoV-2 RNA (RT-PCR) Detected H Not Detecte Group A Streptococcus Screen NEGATIVE NEGATIVE My Orders Orders - KADI FRAUSTO MD Alcohol (10/07/21 22:36) Cbc With Automated Diff (10/07/21 22:36) Comprehensive Metabolic Panel (10/07/21 22:36) Drug Screen Stat (Urine) (10/07/21 22:36) Hcg,Qualitative Urine (10/07/21 22:36) Lipase (10/07/21 22:36) Magnesium (10/07/21 22:36) Ua Culture If Indicated (10/07/21 22:36) Ct Abdomen/Pelvis W (10/07/21 22:36) Chest 1 View Ap/Pa Only (10/07/21 22:36) Covid 19 Inhouse Test (10/07/21 22:37) Influenza A And B By Pcr (10/07/21 22:37) Ed Iv/Invasive Line Start (10/07/21 22:38) Ns Iv 1000 Ml (Sodium Chloride 0.9%) (10/07/21 22:45) Ondansetron Injection (Zofran Injectio (10/07/21 22:45) Ketorolac Injection (Toradol Injection) (10/07/21 22:45) Iohexol Injection (Omnipaque 350 Mg/Ml 1 (10/07/21 22:45) Received Contrast (Hold Metformin- Contr (10/07/21 22:45) Sodium Chloride Flush (Catheter Flush Sy (10/07/21 22:45) Ns (Ivpb) (Sodium Chloride 0.9% Ivpb Bag (10/07/21 22:45) Manual Differential (10/07/21 22:45) Rapid Strep A Screen (10/07/21 23:08) Monotest (10/07/21 23:08) Potassium Chloride (Tablet) (K Dur Table (10/07/21 23:30) Pantoprazole Injection (Protonix Injecti (10/07/21 23:30) Antacid Suspension (Mylanta Suspension (10/07/21 23:30) Medications Given in ED Current Medications Medications Dose Ordered Sig/Damion Route Start Time Stop Time Status Last Admin Dose Admin Al Hydrox/Mg Hydrox/Simethicone 30 ml ONCE ONCE PO 10/07/21 23:30 10/07/21 23:31 DC 10/07/21 23:25 30 ML Iohexol 100 ml ONCE ONCE IV 10/07/21 22:45 10/07/21 22:47 DC 10/07/21 23:02 100 ML Ketorolac Tromethamine 15 mg ONCE ONCE IVP 10/07/21 22:45 10/07/21 22:46 DC 10/07/21 22:59 15 MG Ondansetron HCl 4 mg ONCE ONCE IVP 10/07/21 22:45 10/07/21 22:46 DC 10/07/21 22:59 4 MG Pantoprazole 40 mg ONCE ONCE IV 10/07/21 23:30 10/07/21 23:31 DC 10/07/21 23:25 40 MG Potassium Chloride 40 meq ONCE ONCE PO 10/07/21 23:30 10/07/21 23:31 DC 10/07/21 23:25 40 MEQ Sodium Chloride 10 ml NEEDED PRN IV 10/07/21 22:45 10/07/21 23:02 10 ML Sodium Chloride 100 ml ONCE ONCE IV 10/07/21 22:45 10/07/21 22:47 DC 10/07/21 23:02 100 ML Vital Signs/I&O 10/07/21 21:55 Temp 36.6 Pulse 94 Resp 17 B/P (MAP) 125/92 (103) Pulse Ox 98 O2 Delivery Room Air Blood Pressure Mean: 103 Progress Progress Note : Progress Note 1. COVID POSITIVE WITH ILEUS - CXR: - CT ABD: Ileus - CBC:unremarkable except for elevated monocytes - Monospot Test: negative - UA/ UDS: unremarkable - NS IVF bolus / Zofran 4mg iv / Toradol 15mg iv given in ER/ Protonix iv/ Maalox in ER - Will admit to observation for Ileus. Keep NPO, with IVF, and surgery consult. - Discussed with hospitalist and will admit to Observation 2. MILD HYPOKALEMIA: - s. K is 3.2 - Oral Potassium 40mEq tab STAT Diagnostic Imaging Diagonstic Imaging: Xray, CT Plain Films/CT/US/NM/MRI: chest, abdomen Departure Impression Primary Impression: Lab test positive for detection of COVID-19 virus Additional Impressions: Hypokalemia Ileus Disposition: 01 HOME, SELF-CARE Condition: Improved Admissions Decision to Admit/Date: Oct 08, 2021 Time/Decision to Admit Time: 00:21 Transfer Transfer Reason: Exceeds level of care Time Spoke to Accepting Phy: 00:25 Transfer Progress Notes Discussed with Dr Cutler, and will admit to Observation Transfer Facility: [facility] Method of Transfer: EMS Departure-Patient Inst. Referrals: [facility] (PCP) Primary Care Physician LUIS QUEZADA APRN (Family) Primary Care Physician KADI FRAUSTO MD Oct 07, 2021 22:25
[2021-10-07] MEDS ORDERED: ONDANSETRON 4 MG/2 ML (SDV) Z0FRAN IVP ONE (22:45)
[2021-10-07] MEDS ORDERED: NS 100 ML (IVPB) BAG IV ONE (22:45)
[2021-10-07] MEDS ORDERED: KETOROLAC 30 MG/ML VIAL IVP ONE (22:45)
[2021-10-07] MEDS ORDERED: NS IV 1000 ML 1,000 ML IV SCH (22:45)
[2021-10-07] MEDS ORDERED: IOHEXOL 350 MG/ML 100 ML (OMNIPAQUE 350) VIAL IV ONE (22:45)
[2021-10-07] MEDS ORDERED: CATHETER FLUSH 10 ML SYR IV PRN (22:45)
[2021-10-07] MEDS ORDERED: HOLD METFORMIN - RECEIVED CONTRAST 20 ML VIAL IV SCH (22:45)
[2021-10-07 22:51] LABS: BILIRUBIN,URINE NEGATIVE (NEGATIVE); CLARITY,URINE CLEAR; COLOR,URINE YELLOW; GLUCOSE, URINE (UA) NEGATIVE (NEGATIVE); KETONES,URINE NEGATIVE (NEGATIVE); LEUKOCYTE ESTERASE ,URINE NEGATIVE (NEGATIVE); NITRITE,URINE NEGATIVE (NEGATIVE); PROTEIN,URINE TRACE (NEGATIVE)
[2021-10-07 22:53] LABS: BASOPHILS % (AUTO) 1 % (0-10); EOSINOPHILS % (AUTO) 1 % (0-10); HEMATOCRIT 38 % (35-52); HEMOGLOBIN 12.3 g/dL (11.5-16.0); LYMPHOCYTES # (AUTO) 0.6 10^3/uL (1.0-4.0); LYMPHOCYTES % (AUTO) 18 % (12-44); MEAN CORPUSCULAR HEMOGLOBIN 29 pg (25-34); MEAN CORPUSCULAR HGB CONC 33 g/dL (32-36); MEAN CORPUSCULAR VOLUME 88 fL (80-99); MEAN PLATELET VOLUME 10.5 fL (9.0-12.2); MONOCYTES # (AUTO) 0.9 10^3/uL (0.0-1.0); MONOCYTES % (AUTO) 25 % (0-12); NEUTROPHILS # (AUTO) 1.9 10^3/uL (1.8-7.8); NEUTROPHILS % (AUTO) 55 % (42-75); PLATELET COUNT 196 10^3/uL (130-400); WHITE BLOOD COUNT 3.4 10^3/uL (4.3-11.0)
[2021-10-07 22:55] LABS: BACTERIA,URINE MODERATE /HPF; SQUAMOUS EPITHELIAL CELL,UR 25-50 /HPF
[2021-10-07 22:56] LABS: HCG,QUALITATIVE URINE NEGATIVE (NEGATIVE)
[2021-10-07 23:01] LABS: AMPHETAMINE SCREEN, URINE NEGATIVE (NEGATIVE); BARBITURATE SCREEN URINE NEGATIVE (NEGATIVE); BENZODIAZEPINES SCREEN URINE NEGATIVE (NEGATIVE); CANNABINOID SCREEN, URINE NEGATIVE (NEGATIVE); COCAINE SCREEN URINE NEGATIVE (NEGATIVE); METHADONE STAT NEGATIVE (NEGATIVE); OPIATE SCREEN URINE POSITIVE (NEGATIVE); OXYCODONE STAT NEGATIVE (NEGATIVE); PROPOXYPHENE STAT NEGATIVE (NEGATIVE); TRICYCLIC ANTIDEPRESSANTS SCRE NEGATIVE (NEGATIVE)
[2021-10-07 23:15] LABS: ALANINE AMINOTRANSFERASE 10 U/L (0-55); ALBUMIN 4.3 GM/DL (3.2-4.5); ALKALINE PHOSPHATASE 50 U/L (40-136); BILIRUBIN,TOTAL 0.2 MG/DL (0.1-1.0); BUN/CREATININE RATIO 23; CALCIUM 8.8 MG/DL (8.5-10.1); CARBON DIOXIDE 25 MMOL/L (21-32); CHLORIDE 105 MMOL/L (98-107); CREATININE SERUM 0.84 MG/DL (0.60-1.30); GFR ESTIMATED 96; GLUCOSE 86 MG/DL (70-105); LIPASE 42 U/L (8-78); MAGNESIUM 1.9 MG/DL (1.6-2.4); POTASSIUM 3.2 MMOL/L (3.6-5.0); SODIUM 140 MMOL/L (135-145)
[2021-10-07 23:26] LABS: EOSINOPHILS % (MANUAL) 8 %; LYMPHOCYTES % (MANUAL) 16 %; MONOCYTES % (MANUAL) 13 %; NEUTROPHILS % (MANUAL) 63 %
[2021-10-07] MEDS ORDERED: KCL 20 MEQ TAB (K-DUR) PO ONE (23:30)
[2021-10-07] MEDS ORDERED: ANTACID SUSP 30 ML UDC (MYLANTA) PO ONE (23:30)
[2021-10-07] MEDS ORDERED: PANTOPRAZOLE 40 MG (PROTONIX) VIAL IV ONE (23:30)
[2021-10-08] VITALS (7 sets, daily range): BP systolic 95–104; BP diastolic 62–73
[2021-10-08] MEDS ORDERED: NS IV 1000 ML 1,000 ML ONE (02:17)
[2021-10-08] MEDS ORDERED: RT-ALBUTEROL/IPRATROPIUM 3 ML (DUONEB) VIAL INH PRN (02:30)
[2021-10-08] MEDS ORDERED: ONDANSETRON 4 MG/2 ML (SDV) Z0FRAN ONE (02:38)
[2021-10-08] MEDS: ONDANSETRON 4 MG/2 ML (SDV) Z0FRAN IV PRN ×3 (02:46→18:12)
[2021-10-08] MEDS: NS IV 1000 ML 1,000 ML IV SCH ×4 (02:46→23:39)
[2021-10-08] MEDS ORDERED: KETOROLAC 30 MG/ML VIAL ONE (04:58)
[2021-10-08] MEDS: KETOROLAC 15 MG/ML VIAL IV PRN ×4 (05:05→23:56)
[2021-10-08 05:27] LABS: BASOPHILS % (AUTO) 1 % (0-10); EOSINOPHILS % (AUTO) 0 % (0-10); HEMATOCRIT 36 % (35-52); HEMOGLOBIN 11.7 g/dL (11.5-16.0); LYMPHOCYTES % (AUTO) 36 % (12-44); MEAN CORPUSCULAR HEMOGLOBIN 29 pg (25-34); MEAN CORPUSCULAR HGB CONC 33 g/dL (32-36); MEAN CORPUSCULAR VOLUME 88 fL (80-99); MEAN PLATELET VOLUME 10.7 fL (9.0-12.2); MONOCYTES # (AUTO) 0.5 10^3/uL (0.0-1.0); MONOCYTES % (AUTO) 18 % (0-12); NEUTROPHILS # (AUTO) 1.2 10^3/uL (1.8-7.8); NEUTROPHILS % (AUTO) 45 % (42-75); PLATELET COUNT 179 10^3/uL (130-400); WHITE BLOOD COUNT 2.7 10^3/uL (4.3-11.0)
[2021-10-08 05:48] LABS: CALCIUM 7.9 MG/DL (8.5-10.1); CREATININE SERUM 0.73 MG/DL (0.60-1.30)
--- NOTE | 2021-10-08 06:18 | Diagnostic Imaging Report ---
PROCEDURE: CT abdomen and pelvis with contrast. TECHNIQUE: Multiple contiguous axial images were obtained through the abdomen and pelvis after administration of intravenous contrast. Auto Exposure Controls were utilized during the CT exam to meet ALARA standards for radiation dose reduction. All CT scans use one or more of the following dose optimizing techniques: automated exposure control, MA and/or KvP adjustment based on patient size and exam type or iterative reconstruction. INDICATION: Epigastric pain COMPARISON: 04/25/2021 FINDINGS: The visualized lung bases are clear. Hypodensity is again identified within the left hepatic lobe adjacent to the falciform ligament, similar to the prior exam. The liver is otherwise unremarkable. The spleen is unremarkable. The adrenal glands are unremarkable. The pancreas is unremarkable. The gallbladder is not visualized. No intra or extrahepatic biliary dilatation. The kidneys are unremarkable. No aneurysmal dilatation of the abdominal aorta. The urinary bladder is predominantly decompressed, therefore not optimally evaluated. Mild mural thickening of the urinary bladder is seen. The uterus is not visualized, likely surgically absent. No abnormal adnexal mass lesion. The appendix is not definitely visualized, though no significant inflammatory stranding within the right lower quadrant. No bowel obstruction. Scattered regions of mural thickening within portions of both the large and small bowel. No significant adenopathy, free air, or free fluid within the abdomen or pelvis. No acute osseous abnormality. IMPRESSION: Scattered regions of mural thickening involving the large and small bowel. This is nonspecific and may simply relate to poor distention, though underlying enteritis is an additional consideration. No bowel obstruction. Poor distention of the urinary bladder versus less likely cystitis. Recommend correlation with urinary analysis. Additional postsurgical changes as above. Agree with preliminary interpretation. Dictated by: Dictated on workstation # [id number]
--- NOTE | 2021-10-08 06:40 | Diagnostic Imaging Report ---
INDICATION: Cough. TECHNIQUE/COMPARISON: A frontal chest was obtained at 10:57 PM and compared to 04/27/2021. FINDINGS: The heart and mediastinal silhouette are normal in appearance. The lungs are clear. There is no pneumothorax or pleural fluid. IMPRESSION: Negative chest. Dictated by: Dictated on workstation # [id number]
--- NOTE | 2021-10-08 07:08 | History & Physical-Hospitalist ---
History of Present Illness HPI/Chief Complaint CC: Ileus with COVID HPI: This is a 30yoF of [facility] who presented to the [facility] ER with abdominal pain and was found to have an ileus with COVID. She has a h/o multiple abdominal surgeries so we will keep her NPO and supportive care will continue along with pain meds and IVF. Source: patient Exam Limitations: no limitations Date Seen 10/08/21 Time Seen by a Provider: 10:30 Attending Physician [place] PCP Admitting Physician: Zee Cutler DO Attending Physician: Zee Cutler DO Referring Physician Date of Admission Oct 08, 2021 at 01:50 Home Medications & Allergies Home Medications Reviewed patient Home Medication Reconciliation performed by pharmacy medication reconciliations donor center technician and/or nursing. Patients Allergies have been reviewed. Allergies Allergies Coded Allergies clindamycin (Verified Allergy, Intermediate, oral blisters, SOB, 07/29/20) famotidine (Verified Allergy, Mild, Hives, 03/15/21) Given at the same time as fentanyl. Hives the IV site. fentanyl (Verified Allergy, Mild, Hives, 03/15/21) Given simultaneously with Pepcid. Hives at IV site. cinnamon (Verified Allergy, Unknown, 07/29/20) tramadol (Verified Allergy, Unknown, POSSIBLE SEIZURE, 05/03/21) ALCOHOL INTAKE WHILE TAKING Past Agmydve-Tlxvyc-Oejhpa Hx Patient Social History Marrital Status: single Employed/Student: employed Tobacco Use?: No Smoking Status: Current Everyday Smoker Use of E-Cig and/or Vaping dev: Yes E-Cig or Vaping type used: Nicotine Use of E-Cig and/or Vaping Robert: Light User Substance use?: No Alcohol Use?: No Pt feels they are or have been: No Immunizations Up To Date Date of Influenza Vaccine: Dec 17, 2012 First/Initial COVID19 Vaccinat: denies Second COVID19 Vaccination Jimmie: NO Tetanus Booster (TDap): Less Than 5 Years Hepatitis A: Yes Hepatitis B: Yes PED Vaccines UTD: Yes Seasonal Allergies Seasonal Allergies: No Current Status status: No status: No Advance Directives: No Communicates: Verbally Primary Language: Palestinian Preferred Spoken Language: Palestinian Is interpretation needed?: No Implanted or Applied Medical D: None Past Medical History Surgeries: Abdominal, Adenoidectomy, Appendectomy, Bowel Surgery, Gallbladder, Tonsillectomy, Tubal Ligation Currently Using CPAP: No Currently Using BIPAP: No TENTMAKER History: Tubal Ligation Sexually Transmitted Disease: No HIV/AIDS: No Kidney Infection, UTI-Chronic Abdominal Hernia, Gall Bladder Disease, Irritable Bowel Chronic Back Pain Anxiety, Depression Blood Disorders: No Adverse Reaction/Blood Tranf: No Family Medical History Patient reports no known family medical history. No Pertinent Family Hx Review of Systems Constitutional: see HPI, malaise, weakness EENTM: no symptoms reported Respiratory: cough Cardiovascular: no symptoms reported Gastrointestinal: abdominal pain, loss of appetite, nausea, vomiting Musculoskeletal: no symptoms reported Skin: no symptoms reported Psychiatric/Neurological: No Symptoms Reported All Other Systems Reviewed Negative Unless Noted: Yes Physical Exam Physical Exam Vital Signs Vital Signs - First Documented 10/07/21 21:55 Temp 36.6 Pulse 94 Resp 17 B/P (MAP) 125/92 (103) Pulse Ox 98 O2 Delivery Room Air Capillary Refill : Less Than 3 Seconds Height, Weight, BMI Height: 4'10.00" Weight: 125lbs. 0oz. [id number]; 28.22 BMI Method:Stated General Appearance: No Apparent Distress, Chronically ill Eyes: Right Eye Normal Inspection, Right Eye PERRL HEENT: PERRL/EOMI, Normal ENT Inspection, Pharynx Normal, Moist Mucous Membranes Neck: Full Range of Motion, Normal Inspection, Non Tender Respiratory: Chest Non Tender, Lungs Clear, Normal Breath Sounds, No Accessory Muscle Use, No Respiratory Distress Cardiovascular: Regular Rate, Rhythm, No Edema, No Gallop, No JVD, No Murmur, Normal Peripheral Pulses Gastrointestinal: No Organomegaly, Abnormal Bowel Sounds, Distended, Tenderness Back: Normal Inspection, No CVA Tenderness, No Vertebral Tenderness Extremity: Normal Capillary Refill, Normal Inspection, Normal Range of Motion, Non Tender, No Calf Tenderness, No Pedal Edema Neurologic/Psychiatric: Alert, Oriented x3, No Motor/Sensory Deficits, Normal Mood/Affect Skin: Normal Color, Warm/Dry Lymphatic: No Adenopathy Results Results/Procedures Labs Laboratory Tests 10/07/21 22:45 10/08/21 05:12 Patient resulted labs reviewed. Assessment/Plan Admission Diagnosis Assessment: Ileus H/O multiple abdominal surgeries high risk for obstruction COVID Cough Plan: Supportive care Admission Status: Observation Diagnosis/Problems Diagnosis/Problems (1) Ileus Status: Acute (2) Hypokalemia Status: Acute ZEE CUTLER DO Oct 08, 2021 07:08
--- NOTE | 2021-10-08 08:32 | Consultation - Surgery ---
WILBERT HOWELL Romain 10/08/21 0832: History of Present Illness History of Present Illness Patient Consulted On(mirna/time) 10/08/21 08:27 Date Seen by Provider: Oct 08, 2021 Time Seen by Provider: 07:28 Reason for Visit: Abdominal pain History of Present Illness Ms. Escobedo is a 30 year old female with a past medical history significant for IBS and endometriosis with a history of multiple abdominal surgeries who presented to the ED with a chief complaint of abdominal pain and retrosternal chest pain of a few days duration. She reports the pain has been progressively getting worse. She describes her pain as crampy and intermittent with occasional sharp pains. She says her pain is infraumbilical and slightly to the left of midline. She also endorses chest pain that is near the xiphoid process and epigastric region; she attributes this to vomiting. she says laying down helps make her pain better and eating and food or drinking anything makes it worse. She endorses multiples days of associated nausea and vomiting. She also endorses malaise, chills, and shakes. She denies a fever, heartburn, hematemesis, or a bowel movement for a few days. She says her pain will radiate to her lower back. She rates her pain as an 8/10. She was diagnosed with IBS 1 year ago and she says she takes medications that help her when she is constipated or has diarrhea but is unsure what these medicines are. She reports no problems breathing but does have a cough. Allergies and Home Medications Allergies Coded Allergies: clindamycin (Verified Allergy, Intermediate, oral blisters, SOB, 07/29/20) famotidine (Verified Allergy, Mild, Hives, 03/15/21) Given at the same time as fentanyl. Hives the IV site. fentanyl (Verified Allergy, Mild, Hives, 03/15/21) Given simultaneously with Pepcid. Hives at IV site. cinnamon (Verified Allergy, Unknown, 07/29/20) tramadol (Verified Allergy, Unknown, POSSIBLE SEIZURE, 05/03/21) ALCOHOL INTAKE WHILE TAKING Patient Home Medication List Acetaminophen (Acetaminophen) 500 Mg Tablet, 1,000 MG PO Q8HR Prescribed by: JOBY MEEKS on 05/24/21 1222 Amoxicillin/Potassium Clav (Amox Tr-K Clv 875-125 mg Tab) 875 Mg-125 Mg Tablet, 1 EACH PO Q12H Prescribed by: ELIZA HOFF on 09/29/21 1619 Dicyclomine HCl (Bentyl) 20 Mg/2 Ml Inj, 20 MG IM UD, (Reported) Entered as Reported by: ARIS MCCRACKEN on 05/03/21 1214 Docusate Sodium (Docusate Sodium) 100 Mg Capsule, 100 MG PO BID Prescribed by: JOBY MEEKS on 05/24/21 1222 Ibuprofen (Ibu) 600 Mg Tablet, 600 MG PO Q6HR Prescribed by: JOBY MEEKS on 05/24/21 1222 Loperamide HCl (Loperamide) Unknown Strength Capsule, Unknown Dose PO, (Reported) Entered as Reported by: ARIS MCCRACKEN on 05/03/21 1214 Simethicone (Mi-Acid) 80 Mg Tab.chew, 80 MG PO Q2HR PRN for gas Prescribed by: JOBY MEEKS on 05/24/21 1222 Past Twoqcvr-Mqhkhr-Ufobee Hx Patient Social History Smoking Status: Former Smoker (Quit smoking 1-2 years ago. Smoked a "few" cigarettes a day. Now vapes.) Former Smoker, Quit: Feb 05, 2019 Type Used: Electronic/Vapor 2nd Hand Smoke Exposure: Yes Recent Hopitalizations: No Alcohol Use?: No Immunizations Up To Date Tetanus Booster (TDap): More than 5yrs PED Vaccines UTD: Yes Date of Influenza Vaccine: Dec 17, 2012 Seasonal Allergies Seasonal Allergies: No Surgeries History of Surgeries: Yes (Umbilical herniorrhaphy 07/04/12,D&C, ENDOMETRIOSIS SCRAPING, d&c, Mesh Tommy) Surgeries: Abdominal (Umbilical hernia x3), Adenoidectomy, Appendectomy, Gallbladder, Hysterectomy, Tonsillectomy, Tubal Ligation Respiratory History of Respiratory Disorde: No Cardiovascular History of Cardiac Disorders: No Neurological History of Neurological Disord: Yes Neurological Disorders: Seizure Disorder (Seizures d/t tramadol) Reproductive System Hx Reproductive Disorders: Yes (CPP) Sexually Transmitted Disease: No HIV/AIDS: No Female Reproductive Disorders: Endometriosis, Ovarian Cyst BUCCARO History: Tubal Ligation Genitourinary History of Genitourinary Disor: Yes Genitourinary Disorders: Kidney Infection, UTI-Chronic Gastrointestinal History of Gastrointestinal Di: Yes (umbilical hernia removed 11/25/18) Gastrointestinal Disorders: Abdominal Hernia, Gall Bladder Disease, Irritable Bowel Musculoskeletal History of Musculoskeletal Dis: No Musculoskeletal Disorders: Chronic Back Pain Endocrine History of Endocrine Disorders: No HEENT History of HEENT Disorders: No Cancer History of Cancer: No Psychosocial History of Psychiatric Problem: Yes Behavioral Health Disorders: Anxiety, Depression Integumentary History of Skin or Integumenta: No Blood Transfusions History of Blood Disorders: No Adverse Reaction to a Blood Tr: No Family Medical History Significant Family History: Cancer (Lung cancer in father. Breast cancer in mother.) Family Medial History: Patient reports no known family medical history. Review of Systems-General Constitutional: chills; No fever; malaise EENTM: No blurred vision, No double vision Respiratory: cough; No short of breath Cardiovascular: chest pain (Near xiphoid process/epigastric region) Gastrointestinal: abdominal pain (Infraumbilical); No hematemesis; loss of appetite, nausea, vomiting Musculoskeletal: No joint pain; muscle pain Psychiatric/Neurological: Denies Headache, Denies Weakness Physical Exam-General Problems Physical Exam Vital Signs Vital Signs - First Documented 10/07/21 21:55 Temp 36.6 Pulse 94 Resp 17 B/P (MAP) 125/92 (103) Pulse Ox 98 O2 Delivery Room Air Capillary Refill : Less Than 3 Seconds General Appearance: WD/WN, no apparent distress HEENT: PERRL/EOMI; No pale conjunctivae (R), No pale conjunctivae (L) Neck: non-tender, supple Respiratory: chest non-tender, lungs clear, normal breath sounds, no respiratory distress, no accessory muscle use Cardiovascular: normal peripheral pulses, no edema, no murmur Peripheral Pulses: 2+ Radial Pulses (R), 2+ Radial Pulses (L) Gastrointestinal: normal bowel sounds, soft; No distended, No guarding, No rebound; tenderness (Moderate diffuse tenderness with tenderness to palpation infraumbilcal and slightly left of midline) Extremities: non-tender, no pedal edema, no calf tenderness Neurologic/Psychiatric: alert, normal mood/affect, oriented x 3 Skin: normal color, warm/dry Data Review Labs Laboratory Tests 10/07/21 21:56: Urine Color YELLOW, Urine Clarity CLEAR, Urine pH 6.0, Urine Specific Onyx >=1.030, Urine Protein TRACEH, Urine Glucose (UA) NEGATIVE, Urine Ketones NEGATIVE, Urine Nitrite NEGATIVE, Urine Bilirubin NEGATIVE, Urine Urobilinogen 1.0, Urine Leukocyte Esterase NEGATIVE, Urine RBC (Auto) NEGATIVE, Urine RBC 5- 10H, Urine WBC 5-10H, Urine Squamous Epithelial Cells 25-50H, Urine Crystals NONE, Urine Bacteria MODERATEH, Urine Casts NONE, Urine Mucus LARGEH, Urine Culture Indicated NO, Urine Test NEGATIVE, Urine Opiates Screen POSITIVEH, Urine Oxycodone Screen NEGATIVE, Urine Methadone Screen NEGATIVE, Urine Propoxyphene Screen NEGATIVE, Urine Barbiturates Screen NEGATIVE, Ur Tricyclic Antidepressants Screen NEGATIVE, Urine Phencyclidine Screen NEGATIVE, Urine Amphetamines Screen NEGATIVE, Urine Methamphetamines Screen NEGATIVE, Urine Benzodiazepines Screen NEGATIVE, Urine Cocaine Screen NEGATIVE, Urine Cannabinoids Screen NEGATIVE 10/07/21 22:45: White Blood Count 3.4L, Red Blood Count 4.29, Hemoglobin 12.3, Hematocrit 38, Mean Corpuscular Volume 88, Mean Corpuscular Hemoglobin 29, Mean Corpuscular Hemoglobin Concent 33, Red Cell Distribution Width 13.7, Platelet Count 196, Mean Platelet Volume 10.5, Immature Granulocyte % (Auto) 0, Neutrophils (%) (Auto) 55, Lymphocytes (%) (Auto) 18, Monocytes (%) (Auto) 25H, Eosinophils (%) (Auto) 1, Basophils (%) (Auto) 1, Neutrophils # (Auto) 1.9, Lymphocytes # (Auto) 0.6L, Monocytes # (Auto) 0.9, Eosinophils # (Auto) 0.0, Basophils # (Auto) 0.0, Immature Granulocyte # (Auto) 0.0, Neutrophils % (Manual) 63, Lymphocytes % (Manual) 16, Monocytes % (Manual) 13, Eosinophils % (Manual) 8, Sodium Level 140, Potassium Level 3.2L, Chloride Level 105, Carbon Dioxide Level 25, Anion Ga p 10, Blood Urea Nitrogen 19H, Creatinine 0.84, Estimat Glomerular Filtration Rate 96, BUN/Creatinine Ratio 23, Glucose Level 86, Calcium Level 8.8, Corrected Calcium 8.6, Magnesium Level 1.9, Total Bilirubin 0.2, Aspartate Amino Transf (AST/SGOT) 12, Alanine Aminotransferase (ALT/SGPT) 10, Alkaline Phosphatase 50, Total Protein 7.0, Albumin 4.3, Lipase 42, Serum Alcohol < 10, Monoscreen NEGATIVE 10/07/21 22:49: Influenza Type A (RT-PCR) Not Detected, Influenza Type B (RT-PCR) Not Detected, SARS-CoV-2 RNA (RT-PCR) DetectedH 10/07/21 23:11: Group A Streptococcus Screen NEGATIVE 10/08/21 05:12: White Blood Count 2.7L, Red Blood Count 4.07, Hemoglobin 11.7, Hematocrit 36, Mean Corpuscular Volume 88, Mean Corpuscular Hemoglobin 29, Mean Corpuscular Hemoglobin Concent 33, Red Cell Distribution Width 13.6, Platelet Count 179, Mean Platelet Volume 10.7, Immature Granulocyte % (Auto) 0, Neutrophils (%) (Auto) 45, Lymphocytes (%) (Auto) 36, Monocytes (%) (Auto) 18H, Eosinophils (%) (Auto) 0, Basophils (%) (Auto) 1, Neutrophils # (Auto) 1.2L, Lymphocytes # (Auto) 1.0, Monocytes # (Auto) 0.5, Eosinophils # (Auto) 0.0, Basophils # (Auto) 0.0, Immature Granulocyte # (Auto) 0.0, Sodium Level 141, Potassium Level 4.0, Chloride Level 112H, Carbon Dioxide Level 17L, Anion Gap 12, Blood Urea Nitrogen 14, Creatinine 0.73, Estimat Glomerular Filtration Rate 114, BUN/Creatinine Ratio 19, Glucose Level 86, Calcium Level 7.9L Radiology NAME: CAM ESCOBEDO [facility] REC#: [id number] PT STATUS: ADM Amanda : 1990 PHYSICIAN: KADI FRAUSTO MD ADMIT DATE: 10/08/21 Draft Date of Exam:10/07/21 CT ABDOMEN/PELVIS W PROCEDURE: CT abdomen and pelvis with contrast. TECHNIQUE: Multiple contiguous axial images were obtained through the abdomen and pelvis after administration of intravenous contrast. Auto Exposure Controls were utilized during the CT exam to meet ALARA standards for radiation dose reduction. All CT scans use one or more of the following dose optimizing techniques: automated exposure control, MA and/or KvP adjustment based on patient size and exam type or iterative reconstruction. INDICATION: Epigastric pain COMPARISON: 04/25/2021 FINDINGS: The visualized lung bases are clear. Hypodensity is again identified within the left hepatic lobe adjacent to the falciform ligament, similar to the prior exam. The liver is otherwise unremarkable. The spleen is unremarkable. The adrenal glands are unremarkable. The pancreas is unremarkable. The gallbladder is not visualized. No intra or extrahepatic biliary dilatation. The kidneys are unremarkable. No aneurysmal dilatation of the abdominal aorta. The urinary bladder is predominantly decompressed, therefore not optimally evaluated. Mild mural thickening of the urinary bladder is seen. The uterus is not visualized, likely surgically absent. No abnormal adnexal mass lesion. The appendix is not definitely visualized, though no significant inflammatory stranding within the right lower quadrant. No bowel obstruction. Scattered regions of mural thickening within portions of both the large and small bowel. No significant adenopathy, free air, or free fluid within the abdomen or pelvis. No acute osseous abnormality. IMPRESSION: Scattered regions of mural thickening involving the large and small bowel. This is nonspecific and may simply relate to poor distention, though underlying enteritis is an additional consideration. No bowel obstruction. Poor distention of the urinary bladder versus less likely cystitis. Recommend correlation with urinary analysis. Additional postsurgical changes as above. Agree with preliminary interpretation. Dictated on workstation # [id number] Dict: 10/08/21 0607 Trans: 10/08/21 0616 SHARRI [id number] Interpreted by: BRYANNA TY MD Electronically signed by: Assessment/Plan Assessment/Plan Assessment/Plan Abdominal pain Partial small bowel obstruction vs. ileus Doubt ileus History of extensive abdominal surgeries and hernia repairs Imaging shows no evidence of bowel obstruction Mural thickening of small and large intestine UTI per UA IBS COVID H/o extensive abdominal surgeries Gallbladder, appendectomy, 3 umbilical hernias, hysterectomy, tubal ligation Continue NPO with IVF COVID treatment as determined by medicine services Consider possible SBFT to check for possible partial SBO Encourage ambulation Conservative management at this time TAHMINA JOHNSON DO 10/08/21 1015: History of Present Illness History of Present Illness Time Seen by Provider: 09:17 History of Present Illness Surgery asked to consult regarding Ileus, Covid + HPI per ED: 30-year-old female with no significant PMH, is here with complaints of sore throat, cough, lethargy, myalgia, nausea and vomiting, epigastric pain, loss of appetite. No known sick contacts. Denies shortness of breath, chest pain, palpitations, diarrhea, acid reflux, dizziness. When I spoke to pt this am she stated she hadn't had any more vomiting since she was admitted; had been vomiting for prior 24 hours. She states she has never been told she had PSBO, has never had KEY or exploratory laparotomy. She does have hx of multiple abdominal surgeries. States last flatus and BM were 2 days ago. Allergies and Home Medications Allergies Coded Allergies: clindamycin (Verified Allergy, Intermediate, oral blisters, SOB, 07/29/20) famotidine (Verified Allergy, Mild, Hives, 03/15/21) Given at the same time as fentanyl. Hives the IV site. fentanyl (Verified Allergy, Mild, Hives, 03/15/21) Given simultaneously with Pepcid. Hives at IV site. cinnamon (Verified Allergy, Unknown, 07/29/20) tramadol (Verified Allergy, Unknown, POSSIBLE SEIZURE, 05/03/21) ALCOHOL INTAKE WHILE TAKING Patient Home Medication List Home Medication List Reviewed: Yes Acetaminophen (Acetaminophen) 500 Mg Tablet, 1,000 MG PO Q8HR Prescribed by: JOBY MEEKS on 05/24/21 1222 Amoxicillin/Potassium Clav (Amox Tr-K Clv 875-125 mg Tab) 875 Mg-125 Mg Tablet, 1 EACH PO Q12H Prescribed by: ELIZA HOFF on 09/29/21 1619 Dicyclomine HCl (Bentyl) 20 Mg/2 Ml Inj, 20 MG IM UD, (Reported) Entered as Reported by: ARIS MCCRACKEN on 05/03/21 1214 Docusate Sodium (Docusate Sodium) 100 Mg Capsule, 100 MG PO BID Prescribed by: JOBY MEEKS on 05/24/21 1222 Ibuprofen (Ibu) 600 Mg Tablet, 600 MG PO Q6HR Prescribed by: JOBY MEEKS on 05/24/21 1222 Loperamide HCl (Loperamide) Unknown Strength Capsule, Unknown Dose PO, (Reported) Entered as Reported by: ARIS MCCRACKEN on 05/03/21 1214 Simethicone (Mi-Acid) 80 Mg Tab.chew, 80 MG PO Q2HR PRN for gas Prescribed by: JOBY MEEKS on 05/24/21 1222 Past Mfbrstw-Utzshv-Cmzykt Hx Patient Social History Smoking Status: Former Smoker (Quit smoking 1-2 years ago. Smoked a "few" cigarettes a day. Now vapes.) Surgeries History of Surgeries: Yes Surgeries: Abdominal (Umbilical hernia x3), Adenoidectomy, Appendectomy, Gal lbladder, Hysterectomy, Tonsillectomy, Tubal Ligation Respiratory History of Respiratory Disorde: No Cardiovascular History of Cardiac Disorders: No Neurological History of Neurological Disord: Yes Neurological Disorders: Seizure Disorder (Seizures d/t tramadol) Reproductive System BUCCARO History: Hysterectomy Genitourinary History of Genitourinary Disor: Yes Genitourinary Disorders: Kidney Infection, UTI-Chronic Gastrointestinal History of Gastrointestinal Di: Yes Gastrointestinal Disorders: Abdominal Hernia, Irritable Bowel Musculoskeletal History of Musculoskeletal Dis: Yes Musculoskeletal Disorders: Chronic Back Pain Endocrine History of Endocrine Disorders: No HEENT History of HEENT Disorders: No Loss of Vision: Denies Hearing Impairment: Denies Cancer History of Cancer: No Psychosocial History of Psychiatric Problem: Yes Behavioral Health Disorders: Anxiety, Depression Integumentary History of Skin or Integumenta: No Family Medical History Significant Family History: Cancer (Lung cancer in father. Breast cancer in mother.) Family Medial History: Patient reports no known family medical history. Review of Systems-General Constitutional: chills; No fever; malaise EENTM: No blurred vision, No double vision, No epistaxis Respiratory: cough; No short of breath Gastrointestinal: abdominal pain (Infraumbilical); No hematemesis; nausea, vomiting Genitourinary: No hematuria, No incontinence Musculoskeletal: back pain; No joint pain; muscle pain Skin: No change in color, No change in hair/nails Psychiatric/Neurological: Anxiety, Depressed; Denies Headache, Denies Weakness Physical Exam-General Problems Physical Exam General Appearance: WD/WN, no apparent distress Eyes: Bilateral Eye PERRL, Bilateral Eye EOMI HEENT: pharynx normal; No pale conjunctivae (R), No pale conjunctivae (L) Neck: non-tender, supple Respiratory: chest non-tender, lungs clear, normal breath sounds, no respiratory distress, no accessory muscle use Cardiovascular: normal peripheral pulses, regular rate, rhythm, no murmur Gastrointestinal: normal bowel sounds, soft; No distended, No guarding, No rebound; tenderness (Moderate diffuse tenderness with tenderness to palpation infraumbilcal and slightly left of midline) Rectal: deferred Back: no CVA tenderness, no vertebral tenderness Extremities: non-tender, normal inspection, no pedal edema, no calf tenderness Neurologic/Psychiatric: alert, normal mood/affect, oriented x 3 Skin: normal color, warm/dry Lymphatic: no adenopathy (neck, axilla or groin) Assessment/Plan Assessment/Plan Assessment/Plan Abdominal pain Partial small bowel obstruction vs. ileus Doubt ileus History of extensive abdominal surgeries and hernia repairs Imaging shows no evidence of bowel obstruction Mural thickening of small and large intestine UTI per UA IBS COVID H/o extensive abdominal surgeries Gallbladder, appendectomy, 3 umbilical hernias, hysterectomy, tubal ligation Continue NPO with IVF, may be able to try sips tonight. Encourage ambulation and can chew gum - both stimulate bowel function. COVID treatment as determined by medicine services. Doubt PSBO, more likely this is just an ileus due to the Covid. Non-surgical management at this time Supervisory-Addendum Brief Verification & Attestation Participated in pt care: history, MDM, physical Personally performed: exam, history, MDM, supervision of care Care discussed with: Medical Student Procedures: n/a Verification and Attestation of Medical Student E/M Service A medical student performed and documented this service. I then reviewed and verified all information documented by the medical student and made modifications to such information, when appropriate. I personally performed a physical exam, medical decision making and then discussed any differences between the notes and made revisions as necessary to create one note. Tahmina Johnson , 10/08/21 , 10:18 WILBERT HOWELL Oct 08, 2021 08:32 TAHMINA JOHNSON DO Oct 08, 2021 10:15
[2021-10-08] MEDS: FAMOTIDINE 20MG/2ML IV (PEPCID) IVP SCH ×2 (08:58→20:31)
--- NOTE | 2021-10-08 09:37 | Diagnostic Imaging Report ---
INDICATION: Ileus. COMPARISON: 10/07/2021. TECHNIQUE: Single radiograph of the abdomen dated 10/08/2021. FINDINGS: Contrast is noted within the urinary bladder related to recent CT examination. No dilated loops of large or small bowel. No differential air-fluid levels. No free air. No acute osseous abnormality. IMPRESSION: Nonobstructive bowel gas pattern. Dictated by: Dictated on workstation # [id number]
[2021-10-08] MEDS: ENOXAPARIN 40 MG/0.4 ML (LOVENOX) SYR SC SCH (12:17)
[2021-10-08] MEDS: morphine INJ 4 MG/ML 1 ML (VIAL/SYRINGE) IVP PRN ×3 (12:18→20:31)
[2021-10-08] MEDS: ACETAMINOPHEN 325 MG TABLET PO PRN (18:21)
[2021-10-09 03:42] VITALS: BP 104/73
[2021-10-09] MEDS: ACETAMINOPHEN 325 MG TABLET PO PRN (04:01)
[2021-10-09] MEDS: morphine INJ 4 MG/ML 1 ML (VIAL/SYRINGE) IVP PRN ×3 (04:04→23:47)
[2021-10-09] MEDS: ONDANSETRON 4 MG/2 ML (SDV) Z0FRAN IV PRN ×2 (04:04→08:21)
[2021-10-09] MEDS: KETOROLAC 15 MG/ML VIAL IV PRN ×3 (06:04→20:05)
--- NOTE | 2021-10-09 07:05 | Progress Note - Hospitalist ---
Subjective HPI/CC On Admission Date Seen by Provider: Oct 09, 2021 Time Seen by Provider: 10:30 CC: Ileus with COVID HPI: This is a 30yoF of [facility] who presented to the [facility] ER with abdominal pain and was found to have an ileus with COVID. She has a h/o multiple abdominal surgeries so we will keep her NPO and supportive care will continue along with pain meds and IVF. Subjective/Events-last exam No major changes No flatus Pain continues No dyspnea Cough is improved No Hypoxia Review of Systems General: Fatigue, Malaise Objective Exam Vital Signs Vital Signs Date Time Temp Pulse Resp B/P (MAP) Pulse Ox O2 Delivery O2 Flow Rate FiO2 10/09/21 20:05 Room Air 10/09/21 19:37 37.1 53 18 101/68 (79) 97 Capillary Refill : Less Than 3 Seconds General Appearance: No Apparent Distress, WD/WN Respiratory: Lungs Clear, Normal Breath Sounds Cardiovascular: Regular Rate, Rhythm Neurologic/Psychiatric: Alert, Oriented x3 Results/Procedures Lab Patient resulted labs reviewed. Assessment/Plan Assessment and Plan Assess & Plan/Chief Complaint Assessment: Ileus H/O multiple abdominal surgeries high risk for obstruction COVID Cough Plan: Supportive care DC Tely IS Diagnosis/Problems Diagnosis/Problems (1) Ileus Status: Acute (2) Hypokalemia Status: Acute TISHA FLORENTINO DO Oct 09, 2021 07:05
[2021-10-09 07:49] VITALS: BP 94/64
[2021-10-09] MEDS: FAMOTIDINE 20MG/2ML IV (PEPCID) IVP SCH ×2 (08:14→19:34)
--- NOTE | 2021-10-09 11:20 | Progress Note - Surgery ---
WILBERT HOWELL 10/09/21 1120: Subjective Date Seen by a Provider: Oct 09, 2021 Time Seen by a Provider: 10:26 Subjective/Events-last exam Ms. Artis is being followed for abdominal pain and ileus secondary to COVID. This morning her main complaint is a migraine that has not been able to be controlled with any medicine. She also reports abdominal pain at an 8/10 with radiation to her back. She denies flatus or bowel movement. She is NPO. She says she has been ambulating around her room as much as she can. She still endorses severe nausea but denies any vomiting; she says the nausea can be controlled with medicine. Review of Systems General: No Chills; Fatigue, Malaise HEENT: Head Aches; No Visual Changes Pulmonary: No Dyspnea; Cough Cardiovascular: No: Chest Pain, Palpitations Gastrointestinal: Nausea, Abdominal Pain; No: Vomiting Neurological: No: Weakness, Confusion Objective Exam Vital Signs Date Time Temp Pulse Resp B/P (MAP) Pulse Ox O2 Delivery O2 Flow Rate FiO2 10/09/21 08:10 98 Room Air 10/09/21 07:49 36.2 50 18 94/64 (74) 98 Room Air 10/09/21 07:00 46 10/09/21 03:42 36.0 66 18 104/73 (83) 97 Room Air 10/09/21 01:00 48 10/08/21 23:41 35.9 55 18 104/73 (83) 97 Room Air 10/08/21 20:45 Room Air 10/08/21 19:29 37.1 51 20 96/62 (73) 97 Room Air 10/08/21 19:00 50 10/08/21 15:38 37.1 61 20 100/68 (79) 99 Room Air 10/08/21 12:41 53 10/08/21 11:22 37.2 64 18 104/69 (81) 98 Room Air I & O 10/09/21 07:00 Intake Total 1000 ml Output Total 950 ml Balance 50 ml Capillary Refill : Less Than 3 Seconds General Appearance: No Apparent Distress, WD/WN HEENT: PERRL/EOMI, Moist Mucous Membranes, Other (Patient says headache pain is worse when eyes are open) Neck: Non Tender, Supple Respiratory: Chest Non Tender, No Accessory Muscle Use, No Respiratory Distress, Other (Coarse breath sounds) Cardiovascular: Regular Rate, Rhythm, No Edema, Normal Peripheral Pulses Peripheral Pulses: 2+ Radial Pulses (R), 2+ Radial Pulses (L) Gastrointestinal: soft; No distended, No guarding, No rebound; tenderness (Moderate diffuse tenderness with tenderness to palpation infraumbilcal and slightly left of midline) Extremity: Non Tender, No Pedal Edema Neurologic/Psychiatric: Alert, Oriented x3, Normal Mood/Affect Skin: Normal Color, Warm/Dry Lymphatic: No Adenopathy Results Lab Microbiology 10/07/21 Throat Culture - Preliminary, Resulted No Beta Strep isolated Assessment/Plan Assessment/Plan Assessment/Plan Abdominal pain Partial small bowel obstruction vs. ileus Likely ileus 2/2 COVID History of extensive abdominal surgeries and hernia repairs Imaging shows no evidence of bowel obstruction Mural thickening of small and large intestine UTI per UA IBS COVID H/o extensive abdominal surgeries Gallbladder, appendectomy, 3 umbilical hernias, hysterectomy, tubal ligation Continue NPO with IVF, may be able to advance to sips of clears today. Encourage ambulation and can chew gum - both stimulate bowel function. COVID treatment as determined by medicine services. Non-surgical management at this time Consider alternative medications for headache management GEOFF ABAD DO 10/09/21 1330: Subjective Time Seen by a Provider: 12:11 Subjective/Events-last exam Pt seen and examined, her main complain it headache. However, she still has not had BM or flatus. Review of Systems General: Fatigue, Malaise HEENT: Head Aches; No Visual Changes Pulmonary: No Dyspnea; Cough Cardiovascular: No: Chest Pain, Palpitations Gastrointestinal: Nausea, Abdominal Pain; No: Vomiting Objective Exam General Appearance: WD/WN, Mild Distress HEENT: PERRL/EOMI, Moist Mucous Membranes, Other (Patient says headache pain is worse when eyes are open) Respiratory: No Accessory Muscle Use, No Respiratory Distress, Other (Coarse breath sounds) Cardiovascular: Regular Rate, Rhythm, No Murmur Gastrointestinal: soft; No distended, No guarding, No rebound; tenderness (Minimal diffuse tendernes to palpation, slightly more infraumbilcal and slightly left of midline) Assessment/Plan Assessment/Plan Assessment/Plan Abdominal pain and Ileus - secondary to COVID History of extensive abdominal surgeries and hernia repairs Imaging shows no evidence of bowel obstruction Mural thickening of small and large intestine UTI - on ABX Hx of IBS COVID Will try some clears and continue IVF, Encourage ambulation and can chew gum - both stimulate bowel function. COVID treatment supportive care. Non-surgical management at this time Supervisory-Addendum Brief Verification & Attestation Participated in pt care: history, MDM, physical Personally performed: exam, history, MDM, supervision of care Care discussed with: Medical Student Procedures: n/a Verification and Attestation of Medical Student E/M Service A medical student performed and documented this service. I then reviewed and verified all information documented by the medical student and made modifications to such information, when appropriate. I personally performed a physical exam, medical decision making and then discussed any differences between the notes and made revisions as necessary to create one note. Geoff Abad , 10/09/21 , 13:30 WILBERT HOWELL Oct 09, 2021 11:20 GEOFF ABAD DO Oct 09, 2021 13:30
[2021-10-09 11:22] VITALS: BP 100/62
[2021-10-09] MEDS: NS IV 1000 ML 1,000 ML IV SCH ×2 (11:26→20:05)
[2021-10-09] MEDS: ENOXAPARIN 40 MG/0.4 ML (LOVENOX) SYR SC SCH (11:26)
[2021-10-09 16:21] VITALS: BP 112/64
[2021-10-09 19:37] VITALS: BP 101/68
[2021-10-09 23:33] VITALS: BP 109/74
[2021-10-10 03:57] VITALS: BP 97/62
--- NOTE | 2021-10-10 07:17 | Progress Note - Surgery ---
WILBERT HOWELL 10/10/21 0717: Subjective Date Seen by a Provider: Oct 10, 2021 Time Seen by a Provider: 06:35 Subjective/Events-last exam Ms. Artis is being followed for abdominal pain and ileus secondary to COVID. She reports her migraine has gotten better under control today. She also reports abdominal pain at an 8/10 with radiation to her back. She denies flatus or bowel movement. She is on sips of liquids. She says she has been ambulating around her room as much as she can. She still is having nausea. Review of Systems General: No Chills; Fatigue HEENT: Head Aches; No Visual Changes Pulmonary: No Dyspnea, No Cough Cardiovascular: No: Chest Pain, Palpitations Gastrointestinal: Nausea, Abdominal Pain; No: Vomiting Neurological: No: Weakness, Confusion Objective Exam Vital Signs Date Time Temp Pulse Resp B/P (MAP) Pulse Ox O2 Delivery O2 Flow Rate FiO2 10/10/21 03:57 35.8 52 18 97/62 (74) 98 Room Air 10/09/21 23:33 36.2 60 18 109/74 (86) 98 Room Air 10/09/21 20:05 Room Air 10/09/21 19:37 37.1 53 18 101/68 (79) 97 Room Air 10/09/21 16:21 36.2 55 16 112/64 (80) 97 Room Air 10/09/21 12:42 47 10/09/21 11:22 36.1 60 18 100/62 (75) 98 Room Air 10/09/21 08:10 98 Room Air 10/09/21 07:49 36.2 50 18 94/64 (74) 98 Room Air I & O 10/10/21 07:00 Intake Total 3320 ml Output Total 2950 ml Balance 370 ml Capillary Refill : Less Than 3 Seconds General Appearance: No Apparent Distress, WD/WN HEENT: PERRL/EOMI, Moist Mucous Membranes, Other (Patient says headache pain is worse when eyes are open) Neck: Non Tender, Supple Respiratory: Chest Non Tender, Lungs Clear, Normal Breath Sounds, No Accessory Muscle Use, No Respiratory Distress Cardiovascular: Regular Rate, Rhythm, No Murmur, Normal Peripheral Pulses Peripheral Pulses: 2+ Radial Pulses (R), 2+ Radial Pulses (L) Gastrointestinal: soft; No distended, No guarding, No rebound; tenderness (Minimal diffuse tendernes to palpation, slightly more infraumbilcal and slightly left of midline) Extremity: Non Tender, No Pedal Edema Neurologic/Psychiatric: Alert, Oriented x3 Skin: Normal Color, Warm/Dry Results Lab Microbiology 10/07/21 Throat Culture - Preliminary, Resulted No Beta Strep isolated Assessment/Plan Assessment/Plan Assessment/Plan Abdominal pain and Ileus - secondary to COVID History of extensive abdominal surgeries and hernia repairs Imaging shows no evidence of bowel obstruction Mural thickening of small and large intestine UTI Not on abx Hx of IBS COVID Will try some clears and continue IVF. Consider advancing to soft diet today as tolerated Encourage ambulation and can chew gum - both stimulate bowel function. COVID treatment supportive care. Non-surgical management at this time GEOFF ABAD DO 10/10/21 1450: Subjective Time Seen by a Provider: 12:27 Subjective/Events-last exam Pt seen and examined, no new changes. nurse states she was a little nauseous this am. Pt still has no flatus or BM Review of Systems General: No Chills; Fatigue HEENT: Head Aches; No Visual Changes Pulmonary: No Dyspnea, No Cough Cardiovascular: No: Chest Pain, Palpitations Gastrointestinal: Nausea, Abdominal Pain; No: Vomiting Objective Exam General Appearance: No Apparent Distress, WD/WN HEENT: PERRL/EOMI, Moist Mucous Membranes Respiratory: Lungs Clear, Normal Breath Sounds, No Accessory Muscle Use, No Respiratory Distress Cardiovascular: Regular Rate, Rhythm, No Murmur Gastrointestinal: soft; No distended, No guarding, No rebound; tenderness (Mi nimal diffuse tendernes to palpation, slightly more infraumbilcal and slightly left of midline) Skin: Normal Color, Warm/Dry Assessment/Plan Assessment/Plan Assessment/Plan Abdominal pain and Ileus - secondary to COVID History of extensive abdominal surgeries and hernia repairs Imaging shows no evidence of bowel obstruction Mural thickening of small and large intestine UTI Not on abx Hx of IBS COVID Will continue clears and continue IVF. I don't think pt is walking at all and I asked nurse to please go to her room every hour and make her walk around. Encourage ambulation and can chew gum - both stimulate bowel function. COVID treatment supportive care. Non-surgical management at this time Supervisory-Addendum Brief Verification & Attestation Participated in pt care: history, MDM, physical Personally performed: exam, history, MDM, supervision of care Care discussed with: Medical Student Procedures: n/a Verification and Attestation of Medical Student E/M Service A medical student performed and documented this service. I then reviewed and verified all information documented by the medical student and made modifications to such information, when appropriate. I personally performed a physical exam, medical decision making and then discussed any differences between the notes and made revisions as necessary to create one note. Geoff Abad , 10/10/21 , 14:50 WILBERT HOWELL Oct 10, 2021 07:17 GEOFF ABAD DO Oct 10, 2021 14:50
[2021-10-10 08:34] VITALS: BP 101/67
[2021-10-10] MEDS: FAMOTIDINE 20MG/2ML IV (PEPCID) IVP SCH ×2 (09:00→20:16)
[2021-10-10] MEDS: ONDANSETRON 4 MG/2 ML (SDV) Z0FRAN IV PRN ×2 (09:00→18:19)
[2021-10-10] MEDS: morphine INJ 4 MG/ML 1 ML (VIAL/SYRINGE) IVP PRN ×2 (09:00→20:16)
[2021-10-10] MEDS: ACETAMINOPHEN 325 MG TABLET PO PRN (09:04)
[2021-10-10] MEDS: KETOROLAC 15 MG/ML VIAL IV PRN ×2 (09:10→18:25)
[2021-10-10 11:08] VITALS: BP 97/63
--- NOTE | 2021-10-10 11:22 | Progress Note - Hospitalist ---
FLAKITAPhuCHELE HDZ 10/10/21 1122: Subjective HPI/CC On Admission Date Seen by Provider: Oct 10, 2021 Time Seen by Provider: 10:30 CC: Ileus with COVID HPI: This is a 30yoF of [facility] who presented to the [facility] ER with abdominal pain and was found to have an ileus with COVID. She has a h/o multiple abdominal surgeries so we will keep her NPO and supportive care will continue along with pain meds and IVF. Subjective/Events-last exam Patient reports no acute events overnight. She has not passed flatus or had a BM. She states the pain continues to be the same however is worsened when she drinks clear liquids. She is nauseous this morning and has a sore throat. Review of Systems General: No Chills, No Night Sweats HEENT: No Head Aches, No Visual Changes; Sore Throat Pulmonary: No Dyspnea, No Cough Cardiovascular: No: Chest Pain, Palpitations Gastrointestinal: Nausea, Abdominal Pain; No: Vomiting Genitourinary: No Dysuria, No Frequency Musculoskeletal: back pain Neurological: No: Change in speech, Confusion Objective Exam Vital Signs Vital Signs Date Time Temp Pulse Resp B/P (MAP) Pulse Ox O2 Delivery O2 Flow Rate FiO2 10/10/21 11:08 36.6 51 18 97/63 (74) 97 Room Air Capillary Refill : Less Than 3 Seconds General Appearance: No Apparent Distress HEENT: Moist Mucous Membranes Neck: Non Tender, Supple Respiratory: Lungs Clear, Normal Breath Sounds Cardiovascular: Regular Rate, Rhythm, No Edema Gastrointestinal: Normal Bowel Sounds, Tenderness (to light palpation difusely) Rectal: Deferred Back: Normal Inspection, No CVA Tenderness Extremity: Normal Capillary Refill, No Calf Tenderness Neurologic/Psychiatric: Alert, Oriented x3 Skin: Normal Color, Warm/Dry Lymphatic: No Adenopathy Results/Procedures Lab Patient resulted labs reviewed. Assessment/Plan Assessment and Plan Assess & Plan/Chief Complaint 1) Abdominal pain and Ileus * Surgery following, appreciate recs * History of extensive abdominal surgeries and hernia repairs * Imaging shows no evidence of bowel obstruction * Mural thickening of small and large intestine * Continue clear liquid diet and consider advancing to soft diet today as tolerated * Continue supportive care 2) Covid * Supportive care Dispo: Will discharge home when medically stable ZEE FLORENTINO DO 10/11/21 0519: Subjective Subjective/Events-last exam Pt is still having a lot of abdominal pain and nausea Bicarb is 17 White count is 2.7 Clear liquid diet causes increase in abdominal pain No evidence of obstruction Last time she was admitted she was in the hospital for 2 weeks Review of Systems Gastrointestinal: Nausea, Vomiting Objective Exam General Appearance: No Apparent Distress, WD/WN, Chronically ill Assessment/Plan Assessment and Plan Assess & Plan/Chief Complaint Last admit she required 2 weeks of hospital stay Supervisory-Addendum Brief Verification & Attestation Participated in pt care: history, MDM, physical Personally performed: exam, history, MDM, supervision of care Care discussed with: Medical Student Procedures: n/a Results interpretation: Verified all documentation Verification and Attestation of Medical Student E/M Service A medical student performed and documented this service in my presence. I revie wed and verified all information documented by the medical student and made modifications to such information, when appropriate. I personally performed the physical exam and medical decision making. Zee Florentino Oct 11, 2021,05:18 CHELE WILSON Oct 10, 2021 11:22 ZEE FLORENTINO DO Oct 11, 2021 05:19
[2021-10-10] MEDS: ENOXAPARIN 40 MG/0.4 ML (LOVENOX) SYR SC SCH (12:16)
[2021-10-10] MEDS: NS IV 1000 ML 1,000 ML IV SCH ×2 (12:16→23:22)
[2021-10-10] MEDS ORDERED: ACET-2267 PO (14:08)
[2021-10-10 15:45] VITALS: BP 104/63
[2021-10-10 19:14] VITALS: BP 91/60
[2021-10-10 23:21] VITALS: BP 95/66
[2021-10-11 04:45] VITALS: BP 98/65
[2021-10-11] MEDS: NS IV 1000 ML 1,000 ML IV SCH ×2 (04:48→19:58)
[2021-10-11 06:01] LABS: BASOPHILS % (AUTO) 0 % (0-10); EOSINOPHILS # (AUTO) 0.1 10^3/uL (0.0-0.3); EOSINOPHILS % (AUTO) 2 % (0-10); HEMATOCRIT 36 % (35-52); HEMOGLOBIN 11.9 g/dL (11.5-16.0); LYMPHOCYTES # (AUTO) 1.7 10^3/uL (1.0-4.0); LYMPHOCYTES % (AUTO) 33 % (12-44); MEAN CORPUSCULAR HEMOGLOBIN 30 pg (25-34); MEAN CORPUSCULAR HGB CONC 33 g/dL (32-36); MEAN CORPUSCULAR VOLUME 90 fL (80-99); MONOCYTES # (AUTO) 0.4 10^3/uL (0.0-1.0); MONOCYTES % (AUTO) 7 % (0-12); NEUTROPHILS # (AUTO) 2.9 10^3/uL (1.8-7.8); NEUTROPHILS % (AUTO) 57 % (42-75); PLATELET COUNT 284 10^3/uL (130-400); WHITE BLOOD COUNT 5.1 10^3/uL (4.3-11.0)
[2021-10-11 06:15] LABS: ALBUMIN 3.6 GM/DL (3.2-4.5)
[2021-10-11 06:16] LABS: POTASSIUM 3.5 MMOL/L (3.6-5.0)
[2021-10-11 06:17] LABS: CALCIUM 8.3 MG/DL (8.5-10.1)
[2021-10-11 06:18] LABS: TOTAL PROTEIN 6.2 GM/DL (6.4-8.2)
[2021-10-11 06:20] LABS: BILIRUBIN,TOTAL 0.3 MG/DL (0.1-1.0)
[2021-10-11 06:21] LABS: CREATININE SERUM 0.72 MG/DL (0.60-1.30)
[2021-10-11 07:55] VITALS: BP 101/68
--- NOTE | 2021-10-11 08:02 | Progress Note - Surgery ---
WILBERT HOWELL 10/11/21 0802: Subjective Date Seen by a Provider: Oct 11, 2021 Time Seen by a Provider: 07:26 Subjective/Events-last exam Ms. Artis is being followed for abdominal pain and ileus secondary to COVID. This morning she reports her abdominal pain has improved to a 5/10 from an 8/10. She also reports a small, liquid bowel movement yesterday afternoon. She says she is on clears and soft foods such as pudding. She says her breathing is doing well and her headache is gone. Review of Systems General: No Chills, No Fatigue HEENT: No Head Aches, No Visual Changes Pulmonary: No Dyspnea, No Cough Cardiovascular: No: Chest Pain, Palpitations Gastrointestinal: Nausea, Abdominal Pain; No: Vomiting Neurological: No: Weakness, Confusion Objective Exam Vital Signs Date Time Temp Pulse Resp B/P (MAP) Pulse Ox O2 Delivery O2 Flow Rate FiO2 10/11/21 07:55 36.9 51 18 101/68 (79) 96 Room Air 10/11/21 07:31 Room Air 10/11/21 04:45 36.5 55 18 98/65 (76) 97 Room Air 10/10/21 23:21 36.9 58 18 95/66 (76) 97 Room Air 10/10/21 20:00 Room Air 10/10/21 19:14 37.1 51 18 91/60 (70) 98 Room Air 10/10/21 15:45 36.7 48 16 104/63 (77) 97 Room Air 10/10/21 11:08 36.6 51 18 97/63 (74) 97 Room Air 10/10/21 08:34 36.6 52 18 101/67 (78) 97 Room Air I & O 10/11/21 07:00 Intake Total 935 ml Output Total 1800 ml Balance -865 ml Capillary Refill : Less Than 3 Seconds General Appearance: No Apparent Distress, WD/WN HEENT: PERRL/EOMI, Moist Mucous Membranes Neck: Non Tender, Supple Respiratory: Chest Non Tender, Lungs Clear, Normal Breath Sounds, No Accessory Muscle Use, No Respiratory Distress Cardiovascular: Regular Rate, Rhythm, No Murmur, Normal Peripheral Pulses Peripheral Pulses: 2+ Radial Pulses (R), 2+ Radial Pulses (L) Gastrointestinal: soft; No distended, No guarding, No rebound; tenderness (Minimal diffuse tendernes to palpation, slightly more infraumbilcal and slightly left of midline) Extremity: No Calf Tenderness, No Pedal Edema Neurologic/Psychiatric: Alert, Oriented x3 Skin: Normal Color, Warm/Dry Results Lab Laboratory Tests 10/11/21 05:42: White Blood Count 5.1, Red Blood Count 4.02, Hemoglobin 11.9, Hematocrit 36, Mean Corpuscular Volume 90, Mean Corpuscular Hemoglobin 30, Mean Corpuscular Hemoglobin Concent 33, Red Cell Distribution Width 13.1, Platelet Count 284, Mean Platelet Volume 11.0, Immature Granulocyte % (Auto) 0, Neutrophils (%) (Auto) 57, Lymphocytes (%) (Auto) 33, Monocytes (%) (Auto) 7, Eosinophils (%) (Auto) 2, Basophils (%) (Auto) 0, Neutrophils # (Auto) 2.9, Lymphocytes # (Auto) 1.7, Monocytes # (Auto) 0.4, Eosinophils # (Auto) 0.1, Basophils # (Auto) 0.0, Immature Granulocyte # (Auto) 0.0, Sodium Level 140, Potassium Level 3.5L, Chloride Level 109H, Carbon Dioxide Level 19L, Anion Gap 12, Blood Urea Nitrogen 5L, Creatinine 0.72, Estimat Glomerular Filtration Rate 116, BUN/Creatinine Ratio 7, Glucose Level 86, Calcium Level 8.3L, Corrected Calcium 8.6, Total Bilirubin 0.3, Aspartate Amino Transf (AST/SGOT) 13, Alanine Aminotransferase (ALT/SGPT) 12, Alkaline Phosphatase 35L, Total Protein 6.2L, Albumin 3.6 Microbiology 10/07/21 Throat Culture - Final, Complete No Beta Strep isolated Assessment/Plan Assessment/Plan Assessment/Plan Abdominal pain and Ileus - secondary to COVID History of extensive abdominal surgeries and hernia repairs Imaging shows no evidence of bowel obstruction Mural thickening of small and large intestine UTI Not on abx Hx of IBS COVID Will continue clears and continue IVF. Advance to soft diet today as tolerated Encourage ambulation Encourage chewing gum COVID treatment supportive care. Non-surgical management at this time. If soft diet is tolerated today consider d/c tomorrow GEOFF ABAD DO 10/11/21 1447: Subjective Time Seen by a Provider: 11:31 Subjective/Events-last exam Pt seen and examined, again she was lying in bed. States small BM yesterday, some nausea this am. Review of Systems General: No Chills Pulmonary: No Dyspnea, No Cough Cardiovascular: No: Chest Pain, Palpitations Gastrointestinal: Nausea, Abdominal Pain; No: Vomiting Objective Exam General Appearance: No Apparent Distress, WD/WN Respiratory: Chest Non Tender, Lungs Clear, Normal Breath Sounds, No Accessory Muscle Use, No Respiratory Distress Cardiovascular: Regular Rate, Rhythm, No Murmur Gastrointestinal: soft; No distended, No guarding, No rebound; tenderness (Minimal diffuse tendernes to palpation, slightly more infraumbilcal and slightly left of midline) Assessment/Plan Assessment/Plan Assessment/Plan Abdominal pain and Ileus - secondary to COVID History of extensive abdominal surgeries and hernia repairs Imaging shows no evidence of bowel obstruction Mural thickening of small and large intestine UTI Not on abx Hx of IBS COVID Will continue clears and continue IVF. Advance to soft diet today as tolerated Encourage ambulation Encourage chewing gum COVID treatment supportive care. Non-surgical management at this time. If soft diet is tolerated today consider d/c tomorrow Supervisory-Addendum Brief Verification & Attestation Participated in pt care: history, MDM, physical Personally performed: exam, history, MDM, supervision of care Care discussed with: Medical Student Procedures: n/a Verification and Attestation of Medical Student E/M Service A medical student performed and documented this service. I then reviewed and verified all information documented by the medical student and made modifications to such information, when appropriate. I personally performed a physical exam, medical decision making and then discussed any differences between the notes and made revisions as necessary to create one note. Geoff Abad , 10/11/21 , 14:46 WILBERT HOWELL Oct 11, 2021 08:02 GEOFF ABAD DO Oct 11, 2021 14:47
[2021-10-11] MEDS: FAMOTIDINE 20MG/2ML IV (PEPCID) IVP SCH ×2 (08:04→19:59)
[2021-10-11] MEDS: morphine INJ 4 MG/ML 1 ML (VIAL/SYRINGE) IVP PRN ×2 (08:04→13:42)
--- NOTE | 2021-10-11 10:04 | Progress Note - Hospitalist ---
AMBAR PAULINO A MED STUDENT 10/11/21 1004: Subjective HPI/CC On Admission Date Seen by Provider: Oct 11, 2021 Time Seen by Provider: 08:15 CC: Ileus with COVID HPI: This is a 30yoF of [place] who presented to the [facility] ER with abdominal pain and was found to have an ileus with COVID. She has a h/o multiple abdominal surgeries so we will keep her NPO and supportive care will continue along with pain meds and IVF. Subjective/Events-last exam Pt lying in bed awake this morning. Pt reports she is feeling better. She had a small BM and is passing gas. Pt being transitioned to soft diet this morning for breakfast. Pt reports she has been up walking. Review of Systems General: No Chills, No Fatigue HEENT: No Head Aches, No Visual Changes Pulmonary: No Dyspnea, No Cough Cardiovascular: No: Chest Pain, Palpitations Gastrointestinal: Nausea, Constipation; No: Vomiting, Abdominal Pain Genitourinary: No Dysuria, No Frequency Musculoskeletal: No: neck pain, shoulder pain Neurological: No: Weakness, Numbness Objective Exam Vital Signs Vital Signs Date Time Temp Pulse Resp B/P (MAP) Pulse Ox O2 Delivery O2 Flow Rate FiO2 10/11/21 07:55 36.9 51 18 101/68 (79) 96 Room Air Capillary Refill : Less Than 3 Seconds General Appearance: No Apparent Distress, WD/WN HEENT: PERRL/EOMI, Pharynx Normal Neck: Full Range of Motion, Normal Inspection Respiratory: Chest Non Tender, Lungs Clear Cardiovascular: Regular Rate, Rhythm, No Murmur Gastrointestinal: Normal Bowel Sounds, Non Tender, Soft Back: Normal Inspection, No CVA Tenderness Extremity: Normal Capillary Refill, Non Tender Neurologic/Psychiatric: Alert, Oriented x3 Skin: Normal Color, Warm/Dry Lymphatic: No Adenopathy Results/Procedures Lab Laboratory Tests 10/11/21 05:42 Patient resulted labs reviewed. Assessment/Plan Assessment and Plan Assess & Plan/Chief Complaint COVID ileus vs. Narcotic ileus -Gen surg consulted -Opiate + tox screen -Continue ambulation -Advanced to soft diet today Hypotension -Stable Opiate use -Pt denies Rx for opioids outside of hospital, but tox screen was + for opioids Diet: Soft DVT prophylaxis: Frequent ambulation Disposition: If pt tolerates soft diet and continues to have BM's, will likely go home tomorrow. ZEE FLORENTINO DO 10/12/21 0602: Supervisory-Addendum Brief Verification & Attestation Participated in pt care: history, MDM, physical Personally performed: exam, history, MDM, supervision of care Care discussed with: Medical Student Procedures: n/a Results interpretation: Verified all documentation Verification and Attestation of Medical Student E/M Service A medical student performed and documented this service in my presence. I reviewed and verified all information documented by the medical student and made modifications to such information, when appropriate. I personally performed the physical exam and medical decision making. Zee Florentino, Oct 12, 2021,06:02 AMBAR PAULINO MED STUDENT Oct 11, 2021 10:04 ZEE FLORENTINO DO Oct 12, 2021 06:02
[2021-10-11] MEDS: ONDANSETRON 4 MG/2 ML (SDV) Z0FRAN IV PRN (10:32)
[2021-10-11] MEDS: POTASSIUM CL 10MEQ/50ML IVPB 50 ML IV SCH ×2 (10:32→11:28)
[2021-10-11 11:04] VITALS: BP 99/62
[2021-10-11] MEDS: ENOXAPARIN 40 MG/0.4 ML (LOVENOX) SYR SC SCH (11:29)
[2021-10-11] MEDS: KETOROLAC 15 MG/ML VIAL IV PRN (11:29)
[2021-10-11 15:36] VITALS: BP 93/65
[2021-10-11 19:54] VITALS: BP 99/65
[2021-10-12] VITALS (7 sets, daily range): BP systolic 94–105; BP diastolic 60–71
[2021-10-12] MEDS: NS IV 1000 ML 1,000 ML IV SCH ×2 (03:41→13:55)
--- NOTE | 2021-10-12 07:22 | Progress Note - Surgery ---
WILBERT HOWELL 10/12/21721: Subjective Date Seen by a Provider: Oct 12, 2021 Time Seen by a Provider: 07:09 Subjective/Events-last exam Ms. Artis is being followed for abdominal pain and ileus secondary to COVID. This morning she reports her abdominal pain has been getting better. She says she ate a soft lunch of mashed potatoes yesterday and had a moderate amount of abdominal cramping and passed a small, loose bowel movement. She says her breathing is okay and that she has been walking around her room a lot. Review of Systems General: No Chills, No Fatigue HEENT: No Head Aches, No Visual Changes Pulmonary: No Dyspnea, No Cough Cardiovascular: No: Chest Pain, Palpitations Gastrointestinal: Abdominal Pain; No: Nausea, Vomiting Objective Exam Vital Signs Date Time Temp Pulse Resp B/P (MAP) Pulse Ox O2 Delivery O2 Flow Rate FiO2 10/12/21 04:51 36.1 58 18 94/60 (71) 98 Room Air 10/12/21 00:17 36.9 48 18 104/69 (81) 98 Room Air 10/11/21 20:00 99 Room Air 10/11/21 19:54 37.1 48 18 99/65 (76) 99 Room Air 10/11/21 15:36 36.6 50 18 93/65 (74) 97 Room Air 10/11/21 11:04 36.6 54 18 99/62 (74) 99 Room Air 10/11/21 07:55 36.9 51 18 101/68 (79) 96 Room Air 10/11/21 07:31 Room Air I & O 10/12/21 07:00 Intake Total 1775 ml Output Total 1800 ml Balance -25 ml Capillary Refill : Less Than 3 Seconds General Appearance: No Apparent Distress, WD/WN HEENT: PERRL/EOMI, Moist Mucous Membranes Neck: Non Tender, Supple Respiratory: Chest Non Tender, Lungs Clear, Normal Breath Sounds, No Accessory Muscle Use, No Respiratory Distress Cardiovascular: Regular Rate, Rhythm, No Murmur, Normal Peripheral Pulses Peripheral Pulses: 2+ Radial Pulses (R), 2+ Radial Pulses (L) Gastrointestinal: soft; No distended, No guarding, No rebound; tenderness (Minimal diffuse tendernes to palpation, slightly more infraumbilcal and slightly left of midline) Extremity: Non Tender, No Pedal Edema Neurologic/Psychiatric: Alert, Oriented x3 Skin: Normal Color, Warm/Dry Results Lab Microbiology 10/07/21 Throat Culture - Final, Complete No Beta Strep isolated Assessment/Plan Assessment/Plan Assessment/Plan Abdominal pain and Ileus - secondary to COVID History of extensive abdominal surgeries and hernia repairs Imaging shows no evidence of bowel obstruction Mural thickening of small and large intestine UTI Not on abx Hx of IBS COVID Continue IVF and soft diet today Encourage ambulation Encourage chewing gum COVID treatment supportive care. Consider d/c today if okay with medicine GEOFF ABAD DO 10/12/21 2344: Subjective Time Seen by a Provider: 17:29 Subjective/Events-last exam Pt seen and examined, states she is able to eat a little more and having BMs. Still some nausea and abdominal pain. Review of Systems General: No Chills HEENT: No Head Aches, No Visual Changes Pulmonary: No Dyspnea, No Cough Cardiovascular: No: Chest Pain, Palpitations Gastrointestinal: Abdominal Pain; No: Nausea, Vomiting Objective Exam General Appearance: No Apparent Distress, WD/WN Respiratory: Chest Non Tender, Lungs Clear, Normal Breath Sounds, No Accessory Muscle Use, No Respiratory Distress Cardiovascular: Regular Rate, Rhythm, No Murmur Gastrointestinal: soft; No distended, No guarding, No rebound; tenderness (Minimal diffuse tendernes to palpation, slightly more infraumbilcal and slightly left of midline) Assessment/Plan Assessment/Plan Assessment/Plan Abdominal pain and Ileus - secondary to COVID History of extensive abdominal surgeries and hernia repairs Imaging shows no evidence of bowel obstruction Mural thickening of small and large intestine UTI Not on abx Hx of IBS COVID Continue IVF and soft diet today Encourage ambulation Encourage chewing gum COVID treatment supportive care. Consider d/c today if okay with medicine Supervisory-Addendum Brief Verification & Attestation Participated in pt care: history, MDM, physical Personally performed: exam, history, MDM, supervision of care Care discussed with: Medical Student Procedures: n/a Verification and Attestation of Medical Student E/M Service A medical student performed and documented this service. I then reviewed and verified all information documented by the medical student and made modifications to such information, when appropriate. I personally performed a physical exam, medical decision making and then discussed any differences between the notes and made revisions as necessary to create one note. Geoff Abad , 10/12/21 , 23:44 WILBERT HOWELL Oct 12, 2021 07:22 GEOFF ABAD DO Oct 12, 2021 23:44
[2021-10-12] MEDS: FAMOTIDINE 20MG/2ML IV (PEPCID) IVP SCH ×2 (08:27→20:32)
[2021-10-12 09:11] LABS: BASOPHILS % (AUTO) 1 % (0-10); EOSINOPHILS # (AUTO) 0.1 10^3/uL (0.0-0.3); EOSINOPHILS % (AUTO) 2 % (0-10); HEMATOCRIT 38 % (35-52); HEMOGLOBIN 12.6 g/dL (11.5-16.0); LYMPHOCYTES # (AUTO) 1.5 10^3/uL (1.0-4.0); LYMPHOCYTES % (AUTO) 40 % (12-44); MEAN CORPUSCULAR HEMOGLOBIN 29 pg (25-34); MEAN CORPUSCULAR HGB CONC 33 g/dL (32-36); MEAN CORPUSCULAR VOLUME 87 fL (80-99); MEAN PLATELET VOLUME 10.8 fL (9.0-12.2); MONOCYTES # (AUTO) 0.3 10^3/uL (0.0-1.0); MONOCYTES % (AUTO) 9 % (0-12); NEUTROPHILS # (AUTO) 1.8 10^3/uL (1.8-7.8); NEUTROPHILS % (AUTO) 48 % (42-75); PLATELET COUNT 222 10^3/uL (130-400); WHITE BLOOD COUNT 3.7 10^3/uL (4.3-11.0)
[2021-10-12 09:34] LABS: BILIRUBIN,TOTAL 0.4 MG/DL (0.1-1.0); CALCIUM 8.8 MG/DL (8.5-10.1); CREATININE SERUM 0.74 MG/DL (0.60-1.30); POTASSIUM 3.8 MMOL/L (3.6-5.0); TOTAL PROTEIN 6.8 GM/DL (6.4-8.2)
[2021-10-12] MEDS: ENOXAPARIN 40 MG/0.4 ML (LOVENOX) SYR SC SCH (11:16)
[2021-10-12] MEDS: KETOROLAC 15 MG/ML VIAL IV PRN (11:16)
[2021-10-12] MEDS: ONDANSETRON 4 MG/2 ML (SDV) Z0FRAN IV PRN (11:16)
--- NOTE | 2021-10-12 11:54 | Progress Note - Hospitalist ---
SHRUTHIBERTHAAMBAR A MED STUDENT 10/12/21 1154: Subjective HPI/CC On Admission Date Seen by Provider: Oct 12, 2021 Time Seen by Provider: 07:50 CC: Ileus with COVID HPI: This is a 30yoF of [place] who presented to the [facility] ER with abdominal pain and was found to have an ileus with COVID. She has a h/o multiple abdominal surgeries so we will keep her NPO and supportive care will continue along with pain meds and IVF. Subjective/Events-last exam Pt lying in bed comfortably this morning. Pt states she just ate breakfast and is having some abdominal cramping and churning following meals. She had one small loose BM yesterday after initiating soft diet. Pt reports she still has nausea as well. She does not feel like she is ready to go home at this time. Review of Systems General: No Chills, No Fatigue HEENT: No Head Aches, No Visual Changes Pulmonary: No Dyspnea, No Cough Cardiovascular: No: Chest Pain, Palpitations Gastrointestinal: Nausea, Abdominal Pain, Diarrhea; No: Vomiting, Constipation Genitourinary: No Dysuria, No Frequency Musculoskeletal: No: neck pain, shoulder pain Neurological: No: Weakness, Numbness Objective Exam Vital Signs Vital Signs Date Time Temp Pulse Resp B/P (MAP) Pulse Ox O2 Delivery O2 Flow Rate FiO2 10/12/21 11:27 36.6 50 18 105/71 (82) 98 Room Air Capillary Refill : Less Than 3 Seconds General Appearance: No Apparent Distress, WD/WN HEENT: PERRL/EOMI, Pharynx Normal Neck: Full Range of Motion, Normal Inspection Respiratory: Chest Non Tender, Lungs Clear Cardiovascular: Regular Rate, Rhythm, No Murmur Gastrointestinal: Normal Bowel Sounds, Non Tender, Soft Extremity: Non Tender, No Pedal Edema Neurologic/Psychiatric: Alert, Oriented x3, Normal Mood/Affect Skin: Normal Color, Warm/Dry Lymphatic: No Adenopathy Results/Procedures Lab Laboratory Tests 10/12/21 09:00 Patient resulted labs reviewed. Assessment/Plan Assessment and Plan Assess & Plan/Chief Complaint COVID ileus vs. Narcotic ileus -Gen surg consulted, appreciate their recommendations -Opiate + tox screen -Continue ambulation -Tolerating soft diet with some abdominal discomfort and loose stools Hypotension -Stable Opiate use -Pt denies Rx for opioids outside of hospital, but tox screen was + for opioids Diet: Soft DVT prophylaxis: Frequent ambulation Disposition: Pt with continued abdominal cramping and loose stools following initiation of soft diet. Will keep another day and d/c when medically stable. ZEE FLORENTINO DO 10/13/21 0537: Subjective Subjective/Events-last exam Loose stools Very complex issues when she has a flare Supervisory-Addendum Brief Verification & Attestation Participated in pt care: history, MDM, physical Personally performed: exam, history, MDM, supervision of care Care discussed with: Medical Student Procedures: n/a Results interpretation: Verified all documentation Verification and Attestation of Medical Student E/M Service A medical student performed and documented this service in my presence. I reviewed and verified all information documented by the medical student and made modifications to such information, when appropriate. I personally performed the physical exam and medical decision making. Zee Florentino, Oct 13, 2021,05:37 AMBAR PAULINO MED STUDENT Oct 12, 2021 11:54 ZEE FLORENTINO DO Oct 13, 2021 05:37
[2021-10-12] MEDS: ACETAMINOPHEN 325 MG TABLET PO PRN (13:56)
[2021-10-13] MEDS: NS IV 1000 ML 1,000 ML IV SCH (00:04)
[2021-10-13 00:31] VITALS: BP 101/62
[2021-10-13 04:03] VITALS: BP 115/76
[2021-10-13 05:39] LABS: BASOPHILS % (AUTO) 0 % (0-10); EOSINOPHILS # (AUTO) 0.1 10^3/uL (0.0-0.3); EOSINOPHILS % (AUTO) 2 % (0-10); HEMATOCRIT 37 % (35-52); HEMOGLOBIN 11.9 g/dL (11.5-16.0); LYMPHOCYTES # (AUTO) 1.7 10^3/uL (1.0-4.0); LYMPHOCYTES % (AUTO) 39 % (12-44); MEAN CORPUSCULAR HEMOGLOBIN 29 pg (25-34); MEAN CORPUSCULAR HGB CONC 33 g/dL (32-36); MEAN CORPUSCULAR VOLUME 88 fL (80-99); MEAN PLATELET VOLUME 11.3 fL (9.0-12.2); MONOCYTES # (AUTO) 0.4 10^3/uL (0.0-1.0); MONOCYTES % (AUTO) 10 % (0-12); NEUTROPHILS # (AUTO) 2.2 10^3/uL (1.8-7.8); NEUTROPHILS % (AUTO) 49 % (42-75); PLATELET COUNT 205 10^3/uL (130-400); WHITE BLOOD COUNT 4.5 10^3/uL (4.3-11.0)
[2021-10-13 05:57] LABS: ALBUMIN 3.7 GM/DL (3.2-4.5); POTASSIUM 3.6 MMOL/L (3.6-5.0)
[2021-10-13 05:59] LABS: CALCIUM 8.6 MG/DL (8.5-10.1)
[2021-10-13 06:00] LABS: TOTAL PROTEIN 6.3 GM/DL (6.4-8.2)
[2021-10-13 06:02] LABS: BILIRUBIN,TOTAL 0.3 MG/DL (0.1-1.0)
[2021-10-13 06:03] LABS: CREATININE SERUM 0.71 MG/DL (0.60-1.30)
[2021-10-13 07:56] VITALS: BP 104/63
[2021-10-13] MEDS: FAMOTIDINE 20MG/2ML IV (PEPCID) IVP SCH (08:33)
--- NOTE | 2021-10-13 11:02 | Progress Note - Surgery ---
Subjective Time Seen by a Provider: 10:39 Subjective/Events-last exam Pt seen and examined. States she if feeling a little better and ready to go home today. Review of Systems General: Fatigue Pulmonary: No Dyspnea, No Cough Cardiovascular: No: Chest Pain, Palpitations Gastrointestinal: Abdominal Pain; No: Nausea, Vomiting Objective Exam Vital Signs Date Time Temp Pulse Resp B/P (MAP) Pulse Ox O2 Delivery O2 Flow Rate FiO2 10/13/21 08:00 98 Room Air 10/13/21 07:56 37.0 52 18 104/63 (77) 98 Room Air 10/13/21 04:03 36.1 54 20 115/76 (89) 97 Room Air 10/13/21 00:31 36.6 45 20 101/62 (75) 97 Room Air 10/12/21 23:38 Room Air 10/12/21 23:19 36.6 50 95 21 10/12/21 20:05 36.9 56 18 101/62 (75) 98 Room Air 10/12/21 20:00 98 Room Air 10/12/21 15:46 37.2 51 16 101/69 (80) 98 Room Air 10/12/21 11:27 36.6 50 18 105/71 (82) 98 Room Air I & O 10/13/21 07:00 Intake Total 1320 ml Output Total 2150 ml Balance -830 ml Capillary Refill : Less Than 3 Seconds General Appearance: No Apparent Distress, WD/WN HEENT: PERRL/EOMI Respiratory: Lungs Clear, Normal Breath Sounds, No Accessory Muscle Use, No Respiratory Distress Cardiovascular: Regular Rate, Rhythm, No Murmur Peripheral Pulses: 2+ Radial Pulses (R), 2+ Radial Pulses (L) Gastrointestinal: soft; No distended, No guarding, No rebound; tenderness (Minimal diffuse tendernes to palpation, slightly more infraumbilcal and slightly left of midline) Extremity: No Pedal Edema Neurologic/Psychiatric: Alert, Oriented x3 Results Lab Laboratory Tests 10/13/21 05:18: White Blood Count 4.5, Red Blood Count 4.18, Hemoglobin 11.9, Hematocrit 37, Mean Corpuscular Volume 88, Mean Corpuscular Hemoglobin 29, Mean Corpuscular Hemoglobin Concent 33, Red Cell Distribution Width 12.9, Platelet Count 205, Mean Platelet Volume 11.3, Immature Granulocyte % (Auto) 0, Neutrophils (%) (Auto) 49, Lymphocytes (%) (Auto) 39, Monocytes (%) (Auto) 10, Eosinophils (%) (Auto) 2, Basophils (%) (Auto) 0, Neutrophils # (Auto) 2.2, Lymphocytes # (Auto) 1.7, Monocytes # (Auto) 0.4, Eosinophils # (Auto) 0.1, Basophils # (Auto) 0.0, Immature Granulocyte # (Auto) 0.0, Sodium Level 139, Potassium Level 3.6, Chloride Level 109H, Carbon Dioxide Level 20L, Anion Gap 10, Blood Urea Nitrogen 8, Creatinine 0.71, Estimat Glomerular Filtration Rate 118, BUN/Creatinine Ratio 11, Glucose Level 93, Calcium Level 8.6, Corrected Calcium 8.8, Total Bilirubin 0.3, Aspartate Amino Transf (AST/SGOT) 21, Alanine Aminotransferase (ALT/SGPT) 22, Alkaline Phosphatase 33L, Total Protein 6.3L, Albumin 3.7 Microbiology 10/07/21 Throat Culture - Final, Complete No Beta Strep isolated Assessment/Plan Assessment/Plan Assessment/Plan Abdominal pain and Ileus - secondary to COVID History of extensive abdominal surgeries and hernia repairs Imaging shows no evidence of bowel obstruction Mural thickening of small and large intestine UTI Not on abx Hx of IBS COVID Continue IVF and soft diet today, Encourage ambulation Encourage chewing gum COVID treatment supportive care. OK to d/c today TAHMINA JOHNSON DO Oct 13, 2021 11:02
[2021-10-13] MEDS: ENOXAPARIN 40 MG/0.4 ML (LOVENOX) SYR SC SCH (11:05)
[2021-10-13 11:17] VITALS: BP 105/66
--- NOTE | 2021-10-13 11:44 | Discharge Summary ---
Discharge Summary Hospital Course Was the Problem List Reviewed?: Yes Problems/Dx: (1) Ileus Status: Acute (2) Hypokalemia Status: Acute Hospital Course Date of Admission: Oct 08, 2021 at 01:50 Admission Diagnosis : Family Physician/Provider: Padmaja Stephenson Aprn Date of Discharge: 10/13/21 Discharge Diagnosis: Ileus Hospital Course: Kadie is a 30 yo female who was admitted on 10/07 from [facility] ED for COVID and ileus. Pt has hx of multiple abdominal surgeries and hospitalizations for abdominal pain. Pt was admitted to general medical floor after she was found to have COVID and abdominal pain, vomiting and nausea that was attributed to ileus. Pt was started on morphine for pain control, IV fluids, pepcid and duoneb as needed. General surgery was consulted and no surgical intervention was recommen ded. Pt's diet was slowly advanced from NPO to clear liquid and then soft diet. She had several small BMs on 10/11 and 10/12, but was still having abdominal cramping after eating. On 10/13 pt reported she felt much better and the loose stools had stopped. Pt was medically stable for discharge. F/u with PCP in 1 week. AMBAR PAULINO MED STUDENT Labs and Pending Lab Test: Laboratory Tests 10/13/21 05:18: White Blood Count 4.5, Red Blood Count 4.18, Hemoglobin 11.9, Hematocrit 37, Mean Corpuscular Volume 88, Mean Corpuscular Hemoglobin 29, Mean Corpuscular Hemoglobin Concent 33, Red Cell Distribution Width 12.9, Platelet Count 205, Mean Platelet Volume 11.3, Immature Granulocyte % (Auto) 0, Neutrophils (%) (Aut o) 49, Lymphocytes (%) (Auto) 39, Monocytes (%) (Auto) 10, Eosinophils (%) (Auto) 2, Basophils (%) (Auto) 0, Neutrophils # (Auto) 2.2, Lymphocytes # (Auto) 1.7, Monocytes # (Auto) 0.4, Eosinophils # (Auto) 0.1, Basophils # (Auto) 0.0, Immature Granulocyte # (Auto) 0.0, Sodium Level 139, Potassium Level 3.6, Chloride Level 109H, Carbon Dioxide Level 20L, Anion Gap 10, Blood Urea Nitrogen 8, Creatinine 0.71, Estimat Glomerular Filtration Rate 118, BUN/Creatinine Ratio 11, Glucose Level 93, Calcium Level 8.6, Corrected Calcium 8.8, Total Bilirubin 0.3, Aspartate Amino Transf (AST/SGOT) 21, Alanine Aminotransferase (ALT/SGPT) 22, Alkaline Phosphatase 33L, Total Protein 6.3L, Albumin 3.7 Microbiology 10/07/21 Throat Culture - Final, Complete No Beta Strep isolated Home Meds Active Reported Tylenol Extra Strength (Acetaminophen) 500 Mg Tablet 1,000 Mg PO Q8H PRN TAKES 2 (500MG) TABS Assessment/Pt Instructions PCP in 1 week Discharge Planning: <30 minutes discharge planning Discharge Instructions Discharge Diet: Liquid Diet, Soft Diet Activity as Tolerated: Yes Discharge Physical Examination Vital Signs Vital Signs Date Time Temp Pulse Resp B/P (MAP) Pulse Ox O2 Delivery O2 Flow Rate FiO2 10/13/21 11:17 36.8 50 18 105/66 (79) 98 Room Air 10/12/21 23:19 21 General Appearance: No Apparent Distress, WD/WN, Chronically ill Respiratory: Lungs Clear Cardiovascular: Regular Rate, Rhythm Neurologic/Psychiatric: Alert, Oriented x3 Allergies: Coded Allergies: clindamycin (Verified Allergy, Intermediate, oral blisters, SOB, 07/29/20) fentanyl (Verified Allergy, Mild, Hives, 03/15/21) Given simultaneously with Pepcid. Hives at IV site. cinnamon (Verified Allergy, Unknown, 07/29/20) tramadol (Verified Allergy, Unknown, POSSIBLE SEIZURE, 05/03/21) ALCOHOL INTAKE WHILE TAKING Discharge Summary Date of Admission Oct 08, 2021 at 01:50 Date of Discharge Discharge Date: Oct 13, 2021 Admission Diagnosis Assessment: Ileus H/O multiple abdominal surgeries high risk for obstruction COVID Cough Plan: Supportive care Discharge Diagnosis Last admit she required 2 weeks of hospital stay (1) Ileus Status: Acute (2) Hypokalemia Status: Acute TISHA FLORENTINO DO Oct 13, 2021 11:44
[2021-10-13 13:12] VITALS: BP 105/66
--- NOTE | 2021-10-13 13:18 | Progress Note ---
AMBAR PAULINO MED STUDENT 10/13/21 1318: Progress Note Kadie is a 30 yo female who was admitted on 10/07 from [facility] ED for COVID and ileus. Pt has hx of multiple abdominal surgeries and hospitalizations for abdominal pain. Pt was admitted to general medical floor after she was found to have COVID and abdominal pain, vomiting and nausea that was attributed to ileus. Pt was started on morphine for pain control, IV fluids, pepcid and duoneb as needed. General surgery was consulted and no surgical intervention was recommended. Pt's diet was slowly advanced from NPO to clear liquid and then soft diet. She had several small BMs on 10/11 and 10/12, but was still having abdominal cramping after eating. On 10/13 pt reported she felt much better and the loose stools had stopped. Pt was medically stable for discharge. F/u with PCP in 1 week. ZEE FLORENTINO DO 10/13/212051: Supervisory-Addendum Brief Verification & Attestation Participated in pt care: history, MDM, physical Personally performed: exam, history, MDM, supervision of care Care discussed with: Medical Student Procedures: n/a Results interpretation: Verified all documentation Verification and Attestation of Medical Student E/M Service A medical student performed and documented this service in my presence. I reviewed and verified all information documented by the medical student and made modifications to such information, when appropriate. I personally performed the physical exam and medical decision making. Zee Florentino, Oct 13, 2021,20:52 AMBAR PAULINO MED STUDENT Oct 13, 2021 13:18 ZEE FLORENTINO DO Oct 13, 2021 20:52
== END 2021-10-13 11:42 | disposition home or self-care (01) ==
LOC: EDUNIT# 21:46 → ER FS 21:48 → 4TH 21:49 → UNDOADMOB 10-08 01:50 → 4TH 10-08 01:50 → UNDODISOB 10-13 13:12
PROVIDERS: ADMIT Internal Medicine; ATTEND Internal Medicine
DX: U07.1 COVID-19 (principal); K56.7 Ileus, unspecified; E87.6 Hypokalemia; N39.0 Urinary tract infection, site not specified; K58.9 Irritable bowel syndrome, unspecified; F17.290 Nicotine dependence, other tobacco product, uncomplicated; Z88.1 Allergy status to other antibiotic agents
CPT/HCPCS: 36415; 71045; 74018; 74177; 80048; 80053 ×4; 80306; 81000; 83690; 83735; 84703; 85007; 85025 ×4; 85027; 86308; 87430; 87636; 96361 ×3; 96366; 96372 ×6; 96374; 96375 ×2; 96376 ×6; 99284; G0378; G0480; 80320

== ENCOUNTER 2022-04-22 13:59 | Emergency (ER) | payer MEDICAID ==
[~2022-04-22] VITALS: Ht 149 cm; Wt 54.0 kg
[~2022-04-22 13:59] MED LIST changes: +ACET-2267 PO; +LEVO-55 PO; -LEVO500T81 PO
[2022-04-22] MEDS ORDERED: NS IV 1000 ML 1,000 ML IV STA (14:33)
--- NOTE | 2022-04-22 14:39 | ED Abdominal Pain ---
General Chief Complaint: Abdominal/GI Problems Stated Complaint: UNABLE TO EAT/DRINK, SEVERE STOMACH PAIN Nursing Triage Note: PT TO ED W/ C/O CHRONIC ABD PAIN, WORSE LAST NOC. REPORTS SHE IS "UNABLE TO EAT W/O PAIN" ET HAS A "DECREASED APPETITE". Source of Information: Patient Exam Limitations: No Limitations History of Present Illness Date Seen by Provider: Apr 22, 2022 Time Seen by Provider: 14:24 Initial Comments Patient is a 31-year-old female who presents to the emergency department chief complaint of epigastric and left-sided abdominal pain onset in the last 24 to 48 hours. Patient states that she had "really bad" pain yesterday and it finally let up on its own. She states she did not take any medications. She has been nauseated. She has had decreased appetite over the last 2 to 3 weeks. She has a history of "IBS" and "bowel issues". She has had multiple prior abdominal surgeries including cholecystectomy, appendectomy, exploratory laparotomy for endometriosis, hysterectomy. She tells me that she has a history of ulcers, she is not on any GI prophylaxis currently. She states she is noted over the last few weeks a little blood in her stools and they have been "mucousy" within the last week. She denies dysuria, urgency or frequency. No abnormal vaginal discharge. No pain with bowel movements. Nothing makes the pain any worse, nothing makes it any better other than time. She states she is waiting on food allergy testing but "no one has called her back". She has had what sounds like a gastric emptying study by a GI doctor in [place] that she reports was "normal". She has had prior EGD and colonoscopy and states she has a history of diverticulosis. She denies any fevers or chills. No flu or COVID concerns. All other review of systems reviewed and negative except as stated Timing/Duration: 1-2 Days Severity/Quality: Severe ("8"), Sharp Location: Other (left abdomen and epigastrum) Activities at Onset: None Associated Symptoms: Nausea/Vomiting, Other (decreased appetite) Allergies and Home Medications Allergies Coded Allergies: clindamycin (Verified Allergy, Intermediate, oral blisters, SOB, 07/29/20) fentanyl (Verified Allergy, Mild, Hives, 03/15/21) Given simultaneously with Pepcid. Hives at IV site. cinnamon (Verified Allergy, Unknown, 07/29/20) tramadol (Verified Allergy, Unknown, POSSIBLE SEIZURE, 05/03/21) ALCOHOL INTAKE WHILE TAKING Patient Home Medication List Home Medication List Reviewed: Yes Acetaminophen (Tylenol Extra Strength) 500 Mg Tablet, 1,000 MG PO Q8H PRN for PAIN-MILD (1-4), (Reported) Entered as Reported by: JASPREET CAUSEY on 10/10/21 [id number] Review of Systems Review of Systems Constitutional: see HPI EENTM: No Symptoms Reported Respiratory: No Symptoms Reported Cardiovascular: No Symptoms Reported Gastrointestinal: Abdominal Pain, Nausea, Poor Appetite Genitourinary: No Symptoms Reported Musculoskeletal: no symptoms reported Skin: no symptoms reported Psychiatric/Neurological: No Symptoms Reported All Other Systems Reviewed Negative Unless Noted: Yes Past [id number]-Pibryz Hx Patient Social History Tobacco Use?: No Use of E-Cig and/or Vaping dev: No Substance use?: No Alcohol Use?: No Pt feels they are or have been: No Immunizations Up To Date Tetanus Booster (TDap): More than 5yrs PED Vaccines UTD: Yes First/Initial COVID19 Vaccinat: denies Second COVID19 Vaccination Jimmie: NO Third COVID19 Vaccination Date: NO Seasonal Allergies Seasonal Allergies: No Past Medical History Surgery/Hospitalization HX: TUBAL LIGATION HYSTERECTOMY UMBILICAL HERNIA REPAIR X3 BHANU APPY ENDOMETRIOSIS T&A Surgeries: Yes Abdominal, Adenoidectomy, Appendectomy, Gallbladder, Hysterectomy, Tonsillectomy, Tubal Ligation Respiratory: No Currently Using CPAP: No Currently Using BIPAP: No Cardiac: No Neurological: Yes Seizure Disorder Reproductive Disorders: Yes (CPP) Female Reproductive Disorders: Endometriosis, Ovarian Cyst 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 Cancer Physical Exam Vital Signs Vital Signs - First Documented 04/22/22 14:17 Temp 35.6 Pulse 69 Resp 20 B/P (MAP) 116/76 (89) Pulse Ox 100 O2 Delivery Room Air Capillary Refill : Less Than 3 Seconds Height/Weight/BMI Height: 4'10.00" Weight: 125lbs. 0oz. [id number]; 24.00 BMI Method:Stated General Appearance: WD/WN, no apparent distress, other (resting comfortably in bed; NAD; HR 59-62; normal BP) HEENT: PERRL/EOMI Neck: normal inspection Respiratory: lungs clear, normal breath sounds, no respiratory distress, no accessory muscle use Cardiovascular: regular rate, rhythm Peripheral Pulses: 2+ Radial Pulses (R), 2+ Radial Pulses (L) Gastrointestinal: soft; No distended, No guarding, No rebound; tenderness (mild epigastric and left flank tenderness; quiet BS); No mass Extremities: normal range of motion, normal inspection Neurologic/Psychiatric: alert, normal mood/affect, oriented x 3 Skin: normal color, warm/dry Progress/Results/Core Measures Results/Orders Lab Results Laboratory Tests Test 04/22/22 14:40 04/22/22 14:46 Range/Units Urine Color YELLOW Urine Clarity CLEAR Urine pH 7.0 5-9 Urine Specific [place] 1.020 1.016-1.022 Urine Protein NEGATIVE NEGATIVE Urine Glucose (UA) NEGATIVE NEGATIVE Urine Ketones NEGATIVE NEGATIVE Urine Nitrite NEGATIVE NEGATIVE Urine Bilirubin NEGATIVE NEGATIVE Urine Urobilinogen 1.0 < = 1.0 MG/DL Urine Leukocyte Esterase NEGATIVE NEGATIVE Urine RBC (Auto) NEGATIVE NEGATIVE Urine RBC NONE /HPF Urine WBC NONE /HPF Urine Crystals NONE /LPF Urine Bacteria NEGATIVE /HPF Urine Casts NONE /LPF Urine Mucus NEGATIVE /LPF Urine Culture Indicated NO Urine Opiates Screen NEGATIVE NEGATIVE Urine Oxycodone Screen NEGATIVE NEGATIVE Urine Methadone Screen NEGATIVE NEGATIVE Urine Propoxyphene Screen NEGATIVE NEGATIVE Urine Barbiturates Screen NEGATIVE NEGATIVE Ur Tricyclic Antidepressants Screen NEGATIVE NEGATIVE Urine Phencyclidine Screen NEGATIVE NEGATIVE Urine Amphetamines Screen NEGATIVE NEGATIVE Urine Methamphetamines Screen NEGATIVE NEGATIVE Urine Benzodiazepines Screen NEGATIVE NEGATIVE Urine Cocaine Screen NEGATIVE NEGATIVE Urine Cannabinoids Screen NEGATIVE NEGATIVE White Blood Count 8.2 4.3-11.0 10^3/uL Red Blood Count 4.14 3.80-5.11 10^6/uL Hemoglobin 12.6 11.5-16.0 g/dL Hematocrit 37 35-52 % Mean Corpuscular Volume 90 80-99 fL Mean Corpuscular Hemoglobin 30 25-34 pg Mean Corpuscular Hemoglobin Concent 34 32-36 g/dL Red Cell Distribution Width 12.3 10.0-14.5 % Platelet Count 295 130-400 10^3/uL Mean Platelet Volume 10.7 9.0-12.2 fL Immature Granulocyte % (Auto) 0 % Neutrophils (%) (Auto) 70 42-75 % Lymphocytes (%) (Auto) 21 12-44 % Monocytes (%) (Auto) 8 0-12 % Eosinophils (%) (Auto) 0 0-10 % Basophils (%) (Auto) 1 0-10 % Neutrophils # (Auto) 5.7 1.8-7.8 10^3/uL Lymphocytes # (Auto) 1.8 1.0-4.0 10^3/uL Monocytes # (Auto) 0.7 0.0-1.0 10^3/uL Eosinophils # (Auto) 0.0 0.0-0.3 10^3/uL Basophils # (Auto) 0.0 0.0-0.1 10^3/uL Immature Granulocyte # (Auto) 0.0 0.0-0.1 10^3/uL Sodium Level 139 135-145 MMOL/L Potassium Level 3.4 L 3.6-5.0 MMOL/L Chloride Level 106 98-107 MMOL/L Carbon Dioxide Level 23 21-32 MMOL/L Anion Gap 10 5-14 MMOL/L Blood Urea Nitrogen 8 7-18 MG/DL Creatinine 0.76 0.60-1.30 MG/DL Estimat Glomerular Filtration Rate 108 BUN/Creatinine Ratio 11 Glucose Level 80 70-105 MG/DL Calcium Level 9.1 8.5-10.1 MG/DL My Orders Orders - ZULEYKA PATEL MD Ed Iv/Invasive Line Start (04/22/22 14:33) Cbc With Automated Diff (04/22/22 14:33) Basic Metabolic Panel (04/22/22 14:33) Urinalysis (04/22/22 14:33) Drug Screen Stat (Urine) (04/22/22 14:33) Prochlorperazine Injection (Compazine In (04/22/22 14:45) Diphenhydramine Injection (Benadryl Inje (04/22/22 14:45) Ns Iv 1000 Ml (Sodium Chloride 0.9%) (04/22/22 14:33) Medications Given in ED Current Medications Medications Dose Ordered Sig/Damion Route Start Time Stop Time Status Last Admin Dose Admin Diphenhydramine HCl 25 mg ONCE ONCE IVP 04/22/22 14:45 04/22/22 14:46 DC 04/22/22 14:49 25 MG Prochlorperazine Edisylate 10 mg ONCE ONCE IV 04/22/22 14:45 04/22/22 14:46 DC 04/22/22 14:49 10 MG Vital Signs/I&O 04/22/22 14:17 Temp 35.6 Pulse 69 Resp 20 B/P (MAP) 116/76 (89) Pulse Ox 100 O2 Delivery Room Air Blood Pressure Mean: 89 Progress Progress Note : Time: 15:50 Progress Note Patient seen and evaluated by me, 31-year-old female with abdominal discomfort, mucousy diarrhea nausea and decreased appetite. Evaluation today includes a physical exam, CBC, chemistry, urine and urine drug screen. Patient's evaluation is pertinent for very mild tenderness in the left abdomen, also the epigastrium. Bowel sounds are present although quiet. No involuntary guarding or rebound, no suggestion of acute abdomen. She is afebrile, not tachycardic, not hypotensive, no concern for sepsis or acute intra-abdominal pathology. Her labs are reviewed and completely normal, normal CBC, normal chemistry, negative drug screen and clean urine. Low clinical suspicion for diverticulitis, pyelonephritis, enteritis. She has had a hysterectomy therefore not . Low clinical suspicion for any intravaginal infection that would cause abdominal pain. Findings on physical and history do not suggest any other pelvic organ disorder. She is treated in the emergency department with IV fluids, Compazine and Benadryl and states that she has gotten some relief with medications. No clinical or objective findings to warrant further testing or advanced imaging such as CT abdomen and pelvis. She will be sent home with another prescription for Compazine as well as some Bentyl. She strongly encouraged to follow-up with her primary care physician as well as a GI doctor to further manage her chronic abdominal issues. I have communicated all of the results to the patient. She would like her prescriptions to be sent to [facility] in [place]. All questions are sought and answered. Patient is improved at discharge Departure Impression Primary Impression: Abdominal pain Qualified Codes: R10.9 - Unspecified abdominal pain Additional Impression: History of IBS Disposition: HOME, SELF-CARE Condition: Improved Departure-Patient Inst. Decision time for Depature: 15:53 Referrals: ANDRÉS RASMUSSEN APRN (PCP/Family) Primary Care Physician Patient Instructions: Irritable Bowel Syndrome (DC) Add. Discharge Instructions: Drink plenty of fluids to stay well-hydrated. You should try and occasionally have a protein shake in order to get calories. Slowly advance your diet as tolerated. Take the dicyclomine, 10 mg 30 minutes before meals up to every 6 hours as needed for abdominal cramping/pain. Compazine 10 mg every 8 hours as needed for nausea. This medication can make you sleepy, do not drive and take it. If you develop worsening abdominal pain especially with fever, vomiting or any other emergent, concerning symptoms please come back to the emergency room for reevaluation. Please call and follow-up with your primary care physician next week. You also should look for a multimedia production assistant to further help manage your abdominal issues. Scripts Dicyclomine HCl (Dicyclomine HCl) 10 Mg Capsule 10 MG PO QIDACHS, #60 CAP Prov: ZULEYKA PATEL MD 04/22/22 Prochlorperazine Maleate (Compazine) 10 Mg Tablet 10 MG PO Q8H PRN for nausea, #20 TAB Prov: ZULEYKA PATEL MD 04/22/22 ZULEYKA PATEL MD Apr 22, 2022 14:39
[2022-04-22] MEDS ORDERED: diphenhydrAMINE 50 MG/ML INJ (BENADRYL) IVP ONE (14:45)
[2022-04-22] MEDS ORDERED: PROCHLORPERAZINE 10 MG/2ML INJ (COMPAZINE) IV ONE (14:45)
[2022-04-22 14:46] LABS: BILIRUBIN,URINE NEGATIVE (NEGATIVE); CLARITY,URINE CLEAR; COLOR,URINE YELLOW; GLUCOSE, URINE (UA) NEGATIVE (NEGATIVE); KETONES,URINE NEGATIVE (NEGATIVE); LEUKOCYTE ESTERASE ,URINE NEGATIVE (NEGATIVE); NITRITE,URINE NEGATIVE (NEGATIVE); PROTEIN,URINE NEGATIVE (NEGATIVE)
[2022-04-22 14:54] LABS: BACTERIA,URINE NEGATIVE /HPF
[2022-04-22 15:08] LABS: AMPHETAMINE SCREEN, URINE NEGATIVE (NEGATIVE); BARBITURATE SCREEN URINE NEGATIVE (NEGATIVE); BENZODIAZEPINES SCREEN URINE NEGATIVE (NEGATIVE); CANNABINOID SCREEN, URINE NEGATIVE (NEGATIVE); COCAINE SCREEN URINE NEGATIVE (NEGATIVE); METHADONE STAT NEGATIVE (NEGATIVE); OPIATE SCREEN URINE NEGATIVE (NEGATIVE); OXYCODONE STAT NEGATIVE (NEGATIVE); PROPOXYPHENE STAT NEGATIVE (NEGATIVE); TRICYCLIC ANTIDEPRESSANTS SCRE NEGATIVE (NEGATIVE)
[2022-04-22 15:08] LABS: POTASSIUM 3.4 MMOL/L (3.6-5.0)
[2022-04-22 15:09] LABS: BASOPHILS % (AUTO) 1 % (0-10); CALCIUM 9.1 MG/DL (8.5-10.1); EOSINOPHILS % (AUTO) 0 % (0-10); HEMATOCRIT 37 % (35-52); HEMOGLOBIN 12.6 g/dL (11.5-16.0); LYMPHOCYTES # (AUTO) 1.8 10^3/uL (1.0-4.0); LYMPHOCYTES % (AUTO) 21 % (12-44); MEAN CORPUSCULAR HEMOGLOBIN 30 pg (25-34); MEAN CORPUSCULAR HGB CONC 34 g/dL (32-36); MEAN CORPUSCULAR VOLUME 90 fL (80-99); MEAN PLATELET VOLUME 10.7 fL (9.0-12.2); MONOCYTES # (AUTO) 0.7 10^3/uL (0.0-1.0); MONOCYTES % (AUTO) 8 % (0-12); NEUTROPHILS # (AUTO) 5.7 10^3/uL (1.8-7.8); NEUTROPHILS % (AUTO) 70 % (42-75); PLATELET COUNT 295 10^3/uL (130-400); WHITE BLOOD COUNT 8.2 10^3/uL (4.3-11.0)
[2022-04-22 15:13] LABS: CREATININE SERUM 0.76 MG/DL (0.60-1.30)
[2022-04-22] MEDS ORDERED: DICY10CA12 PO (15:55)
[2022-04-22] MEDS ORDERED: PROC-1 PO (15:55)
[2022-04-22 16:03] VITALS: BP 110/76
== END 2022-04-22 16:03 | disposition home or self-care (01) ==
LOC: EDUNIT# 13:59 → ER 14:01
DX: R10.13 Epigastric pain (principal); R19.7 Diarrhea, unspecified; R11.2 Nausea with vomiting, unspecified; Z90.49 Acquired absence of other specified parts of digestive tract; Z87.19 Personal history of other diseases of the digestive system
CPT/HCPCS: 36415; 80048; 80306; 81000; 85025; 99282

== ENCOUNTER 2023-02-22 07:28 | Emergency (ER) | payer BC ==
[~2023-02-22] VITALS: Ht 149.8 cm; Wt 58.9 kg
[~2023-02-22 07:28] MED LIST changes: +DICY-11 PO; -DICY10CA12 PO
--- NOTE | 2023-02-22 08:04 | ED GU-Female ---
General Chief Complaint: Abdominal/GI Problems Stated Complaint: PELVIC PAIN | PID Nursing Triage Note: PT AMB TO RM 6 WITH COMPLAINT OF LOW ABD PAIN, VAGINAL PAIN AND DISCHARGE. STATES SHE HAS BEEN ON 3 ROUNDS OF ANTIBIOTICS. STATES STARTED WITH A UTI AND TURNED INTO PID. STATES SHE WAS TOLD SHE HAD TRICH, AND IS CURRENTLY ON FLAGYL THAT SHE STARTED SUNDAY. STATES HAS A RASH. Source: patient Exam Limitations: no limitations (DOTTY HENRY) History of Present Illness Date Seen by Provider: Feb 22, 2023 Time Seen by Provider: 07:47 Initial Comments 32 YO female presents to ED c/o suprapubic pain, vagainal pain, and dysuria. Pt reports x 2 weeks ago she was diagnosed with a UTI at [facility] and was started on antibiotics. States she had no resolution of symptoms, prompting a visit at [facility] on 02/13 where she was diagnosed with trichamonas infection and started on flagyl. States despite this new medication she continues to have severe vaginal pain and swelling, painful wiping, dysuria, increased pressure with urination, chills, nausea, and suprapubic pain that is now radiating to her back. Reports in 2013 she was hospitalized for PID and feels these symptoms are similar. Denies fever, shortness of breath, chest pain, vomiting, diarrhea, or any other sx. Reports partial hysterectomy and tubal ligation in 2021. She is not on any hormone therapy and has not had a menstrual cycle since 2021. She sees a specialist for IBS and takes compazine/benadryl for nausea, last dose at 0600. Timing/Duration: just prior to arrival Severity/Quality: moderate Location: suprapubic, vaginal Radiation: back Prior Genitourinary Problems: similar symptoms Sexual Philo History: single partner Modifying Factors: Improves With Urinating Associated Symptoms: dysuria, fever/chills (chills but afebrile), lower back pain, nausea/vomiting, urinary frequency (DOTTY HENRY) Allergies and Home Medications Allergies Coded Allergies: clindamycin (Verified Allergy, Intermediate, oral blisters, SOB, 07/29/20) fentanyl (Verified Allergy, Mild, Hives, 03/15/21) Given simultaneously with Pepcid. Hives at IV site. cinnamon (Verified Allergy, Unknown, 07/29/20) tramadol (Verified Allergy, Unknown, POSSIBLE SEIZURE, 05/03/21) ALCOHOL INTAKE WHILE TAKING Patient Home Medication List Home Medication List Reviewed: Yes (DOTTY HENRY) Acetaminophen (Tylenol Extra Strength) 500 Mg Tablet, 1,000 MG PO Q8H PRN for PAIN-MILD (1-4), (Reported) Entered as Reported by: JASPREET CAUSEY on 10/10/21 1408 Dicyclomine HCl (Dicyclomine HCl) 10 Mg Capsule, 10 MG PO QIDACHS Prescribed by: ZULEYKA PATEL on 04/22/22 1555 Doxycycline Hyclate (Doxycycline Hyclate) 100 Mg Capsule, 100 MG PO BID Prescribed by: IRAJ PEDERSEN MD on 02/22/23 1032 Ketorolac Tromethamine (Ketorolac Tromethamine) 10 Mg Tablet, 10 MG PO TID Prescribed by: IRAJ PEDERSEN MD on 02/22/23 1032 Prochlorperazine Maleate (Compazine) 10 Mg Tablet, 10 MG PO Q8H PRN for nausea Prescribed by: ZULEYKA PATEL on 04/22/22 1555 Review of Systems Review of Systems Constitutional: chills, diaphoresis; No fever EENTM: No blurred vision, No double vision Respiratory: No cough, No dyspnea on exertion, No short of breath Cardiovascular: No chest pain Gastrointestinal: abdominal pain (suprapubic); No diarrhea, No jaundice, No loss of appetite; nausea; No vomiting Genitourinary: burning, discharge (mild, yellow color), dysuria, frequency; denies flank pain, denies hematuria, denies incontinence; pain, urgency : No Musculoskeletal: back pain; No joint pain, No muscle weakness, No neck pain Skin: No change in color, No change in hair/nails, No pruritus Psychiatric/Neurological: Denies Headache, Denies Numbness, Denies Weakness Endocrine: No Symptoms Reported Hematologic/Lymphatic: No Symptoms Reported (DOTTY HENRY) All Other Systemes Reviewed Negative Unless Noted: Yes (DOTTY HENRY) Past Qdvliyd-Supevn-Noylgs Hx Patient Social History Tobacco Use?: No Use of E-Cig and/or Vaping dev: No Substance use?: No Alcohol Use?: No Pt feels they are or have been: No (DOTTY HENRY) Immunizations Up To Date Tetanus Booster (TDap): More than 5yrs PED Vaccines UTD: Yes First/Initial COVID19 Vaccinat: denies Second COVID19 Vaccination Jimmie: denies Third COVID19 Vaccination Date: denies (DOTTY HENRY) Seasonal Allergies Seasonal Allergies: No (DOTTY HENRY) Past Medical History Surgery/Hospitalization HX: TUBAL LIGATION HYSTERECTOMY UMBILICAL HERNIA REPAIR X3 BHANU APPY ENDOMETRIOSIS T&A Surgeries: Yes Abdominal, Adenoidectomy, Appendectomy, Gallbladder, Hysterectomy, Tonsillectomy, Tubal Ligation Respiratory: No Currently Using CPAP: No Currently Using BIPAP: No Cardiac: No Neurological: Yes Seizure Disorder Reproductive Disorders: Yes (CPP) Female Reproductive Disorders: Endometriosis, 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 Cancer (DOTTY HENRY) Physical Exam Vital Signs Vital Signs - First Documented 02/22/23 07:36 Temp 36.7 Pulse 76 Resp 20 B/P (MAP) 123/75 (91) Pulse Ox 98 O2 Delivery Room Air ([facility] Vital Signs Capillary Refill : (DOTTY HENRY) Height, Weight, BMI Height: 4'10.00" Weight: 125lbs. 0oz. 56.616215tw; 26.00 BMI Method:Stated General Appearance: WD/WN, no apparent distress, other (Mildly diaphoretic) HEENT: PERRL/EOMI, normal ENT inspection, TMs normal, pharynx normal Neck: full range of motion, supple, normal inspection Cardiovascular: normal peripheral pulses, regular rate, rhythm, no edema, no gallop, no JVD, no murmur Respiratory: chest non-tender, lungs clear, normal breath sounds, no respiratory distress, no accessory muscle use Gastrointestinal: normal bowel sounds, soft, no organomegaly, no pulsatile mass; No guarding, No rebound; tenderness (Diffuse suprapubic tenderness to light palpation. Negative McBurneys, no rebound or guarding. No CVA tenderness. No peritoneal signs. ) Back: no CVA tenderness, no vertebral tenderness Extremities: normal range of motion, non-tender, normal inspection, no pedal edema, no calf tenderness, normal capillary refill Neurologic/Psychiatric: no motor/sensory deficits, alert, normal mood/affect, oriented x 3 Skin: normal color, warm/dry Lymphatic: no adenopathy (DOTTY HENRY) Progress/Results/Core Measures Suspected Sepsis Recent Fever Within 48 Hours: No Infection Criteria Present: Suspected New Infection New/Unexplained Altered Menta: No SIRS Temperature: Pulse: 76 Respiratory Rate: 20 Laboratory Tests 02/22/23 08:15: White Blood Count 5.3 Blood Pressure 123 /75 Mean: 91 Laboratory Tests 02/22/23 08:15: Creatinine 0.83, Platelet Count 268, Total Bilirubin 0.3 (DOTTY HENRY) Results/Orders Lab Results Laboratory Tests Test 02/22/23 08:08 02/22/23 08:15 02/22/23 08:35 Range/Units Urine Color YELLOW Urine Clarity CLEAR Urine pH 5.5 5-9 Urine Specific [place] 1.010 L 1.016-1.022 Urine Protein NEGATIVE NEGATIVE Urine Glucose (UA) NEGATIVE NEGATIVE Urine Ketones NEGATIVE NEGATIVE Urine Nitrite NEGATIVE NEGATIVE Urine Bilirubin NEGATIVE NEGATIVE Urine Urobilinogen 0.2 < = 1.0 MG/DL Urine Leukocyte Esterase 2+ H NEGATIVE Urine RBC (Auto) TRACE H NEGATIVE Urine RBC RARE /HPF Urine WBC 5-10 H /HPF Urine Squamous Epithelial Cells 5-10 /HPF Urine Crystals NONE /LPF Urine Bacteria TRACE /HPF Urine Casts NONE /LPF Urine Mucus NEGATIVE /LPF Urine Culture Indicated YES White Blood Count 5.3 4.3-11.0 10^3/uL Red Blood Count 4.39 3.80-5.11 10^6/uL Hemoglobin 13.5 11.5-16.0 g/dL Hematocrit 41 35-52 % Mean Corpuscular Volume 94 80-99 fL Mean Corpuscular Hemoglobin 31 25-34 pg Mean Corpuscular Hemoglobin Concent 33 32-36 g/dL Red Cell Distribution Width 12.0 10.0-14.5 % Platelet Count 268 130-400 10^3/uL Mean Platelet Volume 10.3 9.0-12.2 fL Immature Granulocyte % (Auto) 0 % Neutrophils (%) (Auto) 67 42-75 % Lymphocytes (%) (Auto) 23 12-44 % Monocytes (%) (Auto) 8 0-12 % Eosinophils (%) (Auto) 1 0-10 % Basophils (%) (Auto) 1 0-10 % Neutrophils # (Auto) 3.6 1.8-7.8 10^3/uL Lymphocytes # (Auto) 1.2 1.0-4.0 10^3/uL Monocytes # (Auto) 0.4 0.0-1.0 10^3/uL Eosinophils # (Auto) 0.1 0.0-0.3 10^3/uL Basophils # (Auto) 0.0 0.0-0.1 10^3/uL Immature Granulocyte # (Auto) 0.0 0.0-0.1 10^3/uL Sodium Level 138 135-145 MMOL/L Potassium Level 4.0 3.6-5.0 MMOL/L Chloride Level 106 98-107 MMOL/L Carbon Dioxide Level 22 21-32 MMOL/L Anion Gap 10 5-14 MMOL/L Blood Urea Nitrogen 14 7-18 MG/DL Creatinine 0.83 0.60-1.30 MG/DL Estimat Glomerular Filtration Rate 97 BUN/Creatinine Ratio 17 Glucose Level 82 70-105 MG/DL Calcium Level 9.7 8.5-10.1 MG/DL Corrected Calcium 8.5-10.1 MG/DL Total Bilirubin 0.3 0.1-1.0 MG/DL Aspartate Amino Transf (AST/SGOT) 15 5-34 U/L Alanine Aminotransferase (ALT/SGPT) 15 0-55 U/L Alkaline Phosphatase 48 40-136 U/L Total Protein 7.9 6.4-8.2 GM/DL Albumin 4.6 H 3.2-4.5 GM/DL (IRAJ PEDERSEN DO) Micro Results Microbiology 02/22/23 Wet Prep - Final, Complete (IRAJ PEDERSEN DO) My Orders Orders - IRAJ PEDERSEN DO Comprehensive Metabolic Panel (02/22/23 07:54) Ua Culture If Indicated (02/22/23 07:54) Cbc And Automated Diff (02/22/23 07:54) Urine Bedside (02/22/23 07:55) Urine Culture (02/22/23 08:08) Ketorolac Injection (Ketorolac Injection (02/22/23 10:30) Ceftriaxone Iv/Im (Ceftriaxone Iv/Im) (02/22/23 10:30) Azithromycin Tablet (Azithromycin Tabl (02/22/23 10:30) Neisseria Gonorrhea Swab (02/22/23 11:12) Wet Prep (02/22/23 11:12) (IRAJ PEDERSEN DO) Medications Given in ED Current Medications Medications Dose Ordered Sig/Damion Route Start Time Stop Time Status Last Admin Dose Admin Azithromycin 1,000 mg ONCE ONCE PO 02/22/23 10:30 02/22/23 10:31 DC 02/22/23 10:41 1,000 MG Ceftriaxone Sodium 250 mg ONCE ONCE IM 02/22/23 10:30 02/22/23 10:31 DC 02/22/23 10:41 250 MG Ketorolac Tromethamine 15 mg ONCE ONCE IVP 02/22/23 10:30 02/22/23 10:31 DC 02/22/23 10:40 15 MG (IRAJ PEDERSEN DO) Vital Signs/I&O 02/22/23 02/22/23 07:36 11:07 Temp 36.7 36.7 Pulse 76 76 Resp 20 20 B/P (MAP) 123/75 (91) 115/78 Pulse Ox 98 98 O2 Delivery Room Air Room Air (IRAJ PEDERSEN DO) Vital Signs/I&O Capillary Refill : (DOTTY HNERY) Blood Pressure Mean: 91 Progress Note : Progress Note 32 YO female presented to ED with vaginal pain, suprapubic pain, and dysuria. She has known trichomonas infection that she is currently taking Flagyl for. She is afebrile with vital signs requiring no immediate intervention. Exam is remarkable for mildy diaphoretic female with diffuse suprapubic tenderness to palpation, no rebound, guarding or peritoneal signs. No tachycardia with normal breath sounds. Pelvic exam remarkable for copious white discharge. Mild cervical erythema. Mild punctate lesions overlying cervical os. Bimanual exam was significant for adenexal tenderness bilaterally right worse than right. DDx includes PID, recurrent UTI, recurrent trichomonas infection, yeast infection, ovarian torsion vs others. Low suspicion for ovarian torsion as her suprapubic pain is generalized with no tenderness on one side, she is not tachycardic and pain seems to be under control. Plan to obtain CBC, CMP, UA, urine , GC/chlamydia and trichomonas testing. No imaging indicated at this time, as her pain is not focal. Will provide pain relief. Labs: Negative urine . White count within normal limits. H/H unrem arkable. Electrolytes unremarkable. Urine showed 2+ leuk esterase, no nitrites, no ketones, 5-10 WBC. Reevaluation: 08 - performed pelvic exam, with significant discomfort. Will provide toradol for pain relief. (DOTTY HENRY) Departure Communication (Admissions) I have seen and personally evaluated, examined the patient. I agree with the outlined history physical obtained by the medical student any additions were made by myself Patient is hemodynamically stable with a nonsurgical abdominal exam. She is afebrile with a normal white count. No evidence for systemic infection at this time. She does have significant vaginal discharge as well as some tenderness on vaginal exam. UA shows may be slight UTI. She is currently on metronidazole for trichomonas. I spoke with Dr. MAHARAJ who recommends treating her prophylactically for gonorrhea, chlamydia and switching her to doxycycline for 7 days. He wants to follow-up with her in the clinic next week. The patient is to call to schedule this appointment. She is no evidence for torsion, no unilateral pain or localizing pain to 1 side or another. She be discharged home in stable condition with close follow-up. I will discharge her with Toradol and she is given some IM Toradol prior to discharge. (IRAJ PEDERSEN DO) Impression Primary Impression: Vaginal discharge Additional Impressions: Pelvic pain UTI (urinary tract infection) Qualified Codes: N30.01 - Acute cystitis with hematuria Disposition: HOME, SELF-CARE Condition: Stable Departure-Patient Inst. Referrals: [facility] (PCP/Family) Primary Care Physician FRANK MAHARAJ DO Patient Instructions: Urinary Tract Infection, Adult ED, Pelvic Pain ED Add. Discharge Instructions: You were seen in the emergency department today for pelvic pain. No emergent conditions are identified for your symptoms today. We have prophylactically treated you for gonorrhea, chlamydia as per Dr. MAHARAJ's recommendations. Stop taking metronidazole that you are currently on and start taking doxycycline as prescribed for 7 days. You were found to have a mild urinary tract infection. The injections plus the oral medications are given should cover this as well. You will need to call Dr. MAHARAJ's office to schedule follow-up next week. I have prescribed Toradol as needed for pain. Do not take any other anti- inflammatory medication such as ibuprofen Aleve or aspirin while taking this. You may add additional Tylenol products if needed. Return to the emergency department for any severe concerns. Follow-up your primary doctor for any nonemergent needs. All discharge instructions reviewed with patient and/or family. Voiced understanding. Scripts Ketorolac Tromethamine (Ketorolac Tromethamine) 10 Mg Tablet 10 MG PO TID for Pain for 3 Days, #9 TAB Prov: IRAJ PEDERSEN DO 02/22/23 Doxycycline Hyclate (Doxycycline Hyclate) 100 Mg Capsule 100 MG PO BID for 7 Days, #14 CAP Prov: IRAJ PEDERSEN DO 02/22/23 DOTTY HENRY Feb 22, 2023 08:04 IRAJ PEDERSEN DO Feb 22, 2023 10:29
[2023-02-22 08:22] LABS: BASOPHILS % (AUTO) 1 % (0-10); EOSINOPHILS # (AUTO) 0.1 10^3/uL (0.0-0.3); EOSINOPHILS % (AUTO) 1 % (0-10); HEMATOCRIT 41 % (35-52); HEMOGLOBIN 13.5 g/dL (11.5-16.0); LYMPHOCYTES # (AUTO) 1.2 10^3/uL (1.0-4.0); LYMPHOCYTES % (AUTO) 23 % (12-44); MEAN CORPUSCULAR HEMOGLOBIN 31 pg (25-34); MEAN CORPUSCULAR HGB CONC 33 g/dL (32-36); MEAN CORPUSCULAR VOLUME 94 fL (80-99); MEAN PLATELET VOLUME 10.3 fL (9.0-12.2); MONOCYTES # (AUTO) 0.4 10^3/uL (0.0-1.0); MONOCYTES % (AUTO) 8 % (0-12); NEUTROPHILS # (AUTO) 3.6 10^3/uL (1.8-7.8); NEUTROPHILS % (AUTO) 67 % (42-75); PLATELET COUNT 268 10^3/uL (130-400); WHITE BLOOD COUNT 5.3 10^3/uL (4.3-11.0)
[2023-02-22 08:38] LABS: ALBUMIN 4.6 GM/DL (3.2-4.5); CHLORIDE 106 MMOL/L (98-107); SODIUM 138 MMOL/L (135-145)
[2023-02-22 08:39] LABS: CALCIUM 9.7 MG/DL (8.5-10.1)
[2023-02-22 08:40] LABS: GLUCOSE 82 MG/DL (70-105); TOTAL PROTEIN 7.9 GM/DL (6.4-8.2)
[2023-02-22 08:41] LABS: CARBON DIOXIDE 22 MMOL/L (21-32)
[2023-02-22 08:42] LABS: BILIRUBIN,TOTAL 0.3 MG/DL (0.1-1.0)
[2023-02-22 08:44] LABS: ALKALINE PHOSPHATASE 48 U/L (40-136); CREATININE SERUM 0.83 MG/DL (0.60-1.30); GFR ESTIMATED 97
[2023-02-22 08:45] LABS: BUN/CREATININE RATIO 17
[2023-02-22 08:47] LABS: ALANINE AMINOTRANSFERASE 15 U/L (0-55)
[2023-02-22 08:56] LABS: CLARITY,URINE CLEAR; COLOR,URINE YELLOW; GLUCOSE, URINE (UA) NEGATIVE (NEGATIVE); KETONES,URINE NEGATIVE (NEGATIVE); PH,URINE 5.5 (5-9); PROTEIN,URINE NEGATIVE (NEGATIVE)
[2023-02-22 08:57] LABS: BACTERIA,URINE TRACE /HPF; BILIRUBIN,URINE NEGATIVE (NEGATIVE); LEUKOCYTE ESTERASE ,URINE 2+ (NEGATIVE); NITRITE,URINE NEGATIVE (NEGATIVE); RBC,URINE RARE /HPF
[2023-02-22] MEDS ORDERED: KETOROLAC INJ 15 MG/ML VIAL IVP ONE (10:30)
[2023-02-22] MEDS ORDERED: cefTRIAXone 500 MG VIAL IV/IM IM ONE (10:30)
[2023-02-22] MEDS ORDERED: AZITHROMYCIN 250 MG TABLET PO ONE (10:30)
[2023-02-22] MEDS ORDERED: DOXY100C5 PO (10:32)
[2023-02-22] MEDS ORDERED: KETO10TA PO (10:32)
[2023-02-22 11:07] VITALS: BP 115/78
== END 2023-02-22 11:07 | disposition home or self-care (01) ==
LOC: EDUNIT# 07:28 → ER 07:31
DX: N39.0 Urinary tract infection, site not specified (principal); N89.8 Other specified noninflammatory disorders of vagina; Z90.49 Acquired absence of other specified parts of digestive tract; Z88.1 Allergy status to other antibiotic agents
CPT/HCPCS: 36415; 80053; 81000; 84703; 85025; 87088; 87210; 87591; 96372